=== PATIENT | female | born 1935 | race Caucasian/White ===

== ENCOUNTER 2018-11-04 14:24 | Emergency (ER) | payer MEDICARE, BC, SELFPAY ==
[2018-10-09 13:41] VITALS: BMI 26.3
[2018-11-04 14:25] VITALS: BP 178/78; PULSE 70; RESP 16; TEMP 36.4; O2SAT 99; BMI 26.4
--- NOTE | 2018-11-04 15:06 | CT_ITS ---
We are attempting to reach an attending provider to discuss findings. An addendum with communication details will be sent when the communication is complete. STUDY: CT FACIAL BONES WITHOUT CONTRAST REASON FOR EXAM: Female, 83 years old. Status post fall RADIATION DOSAGE (If Supplied By Facility): CTDIvol = ( 29.38 ) mGy, DLP = ( 510.73 ) mGycm TECHNIQUE: The patient was scanned in a multi detector CT scanner. Sagittal and coronal images were reconstructed. Individualized dose optimization techniques were used for this CT. COMPARISON: None. FINDINGS: There is right periorbital soft tissue swelling. There is a acute minimally comminuted depressed fracture of the right orbital floor with taking fragments. There is fluid within the right maxillary sinus. There is a nondisplaced fracture of the wall the right maxillary sinus. There is fluid in the right ethmoid sinuses. Normal orbital pope and orbital contents. There is a subtle defect within the right-sided nasal bone suggesting possible prior injury. There is dense calcification of the medially located bilateral carotid bulbs which is likely customer service representative teller of significant atherosclerotic disease. There is degenerative change within the cervical spine with multilevel facet arthropathy. At the level of the partially visualized C4-C5 level there is a substantial osteophyte extending into the canal causing moderate stenosis of the right neural foramen and effacement of the anterior thecal sac. CT/Sinus/Facial Bone IMPRESSION: Acute Depressed right orbital floor fracture. Nondisplaced right maxillary sinus lateral wall fracture. Dense calcification of the bilateral carotid bulbs which is likely associated with significant hemodynamic stenosis. Recommend follow-up ultrasound when appropriate Advanced degenerative change in the visualized cervical spine. Electronically Signed: Malissa Schultz MD at 16:45 EDT Tel , Service support ,
--- NOTE | 2018-11-04 15:08 | CT_ITS ---
STUDY: CT CERVICAL SPINE WITHOUT CONTRAST REASON FOR EXAM: Female, 83 years old. Status post fall RADIATION DOSAGE (If Supplied By Facility): CTDIvol = ( 23.51 ) mGy, DLP = ( 538.71 ) mGycm TECHNIQUE: High resolution transaxial imaging was performed without contrast material. Sagittal and coronal images were reconstructed. Individualized dose optimization techniques were used for this CT. COMPARISON: None FINDINGS: Normal craniovertebral junction. There are degenerative changes of the anterior atlantoaxial articulation. Normal odontoid process. Normal cervical lordosis. Is multilevel degenerative change. C2-3: There is facet arthropathy left greater than right with moderate left neural foraminal narrowing. There is an osteophyte extending into the canal without significant central stenosis. C3-4: There is disc space narrowing spondylosis [id number] neural foraminal narrowing without central stenosis C4-5: There is disc space narrowing right lateral disc osteophyte with moderate right neural foramina narrowing mild central stenosis and effacement of the right lateral recess. C5-6: There is disc space narrowing large disc osteophyte extending into the canal and left neural foramen is moderate to severe left neural foraminal narrowing [id number] central stenosis. Moderate to severe right neural foraminal narrowing. C6-7: There is a central disc osteophyte protrusion with mild to moderate neural foraminal narrowing effacement of the anterior thecal sac. There is moderate neural foramina narrowing C7-T1: Normal endplates. Normal disc height and morphology. Normal central canal and intervertebral neuroforamina. T1-2 there is a central disc osteophyte protrusion. There is atherosclerotic disease of the aorta. The arch measures at least 4 cm. This is partially visualized. 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 No Visualized evidence of an acute fracture. 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 Electronically Signed: Malissa Schultz MD at 16:49 EDT Tel , Service support ,
--- NOTE | 2018-11-04 15:08 | CT_ITS ---
STUDY: CT BRAIN WITHOUT CONTRAST REASON FOR EXAM: Female, 83 years old. Status post fall RADIATION DOSAGE (If Supplied By Facility): CTDIvol = ( 44.99 ) mGy, DLP = ( 779.24 ) mGycm TECHNIQUE: Transaxial CT imaging of the brain was performed without administration of intravenous contrast material. Individualized dose optimization techniques were used for this CT. COMPARISON: No relevant priors. FINDINGS: There is right periorbital soft tissue edema. There is visualized depressed fracture of the right orbital floor with fluid in the right maxillary sinus. There is a nondisplaced fracture at the lateral wall of the right maxillary sinus. There is a suggestion of a age-indeterminate nondisplaced fracture of the right nasal bone. There is calcification of the vertebral arteries. There is mild cerebral atrophy with widening of the extra-axial spaces and ventricular dilatation. There are areas of decreased attenuation within the white matter tracts of the supratentorial brain, consistent with microvascular disease changes. Normal basal ganglia and thalami. Normal brainstem. Normal cerebellum. There is no intracranial hemorrhage. There are no findings of an acute ischemic infarction. There is acute fluid in the right maxillary sinus and in the right-sided ethmoid sinuses. There is calcification of the cavernous carotid arteries. CT/Brain/Head without Contrast IMPRESSION: Acute right orbital floor fracture. Acute fluid in the right maxillary sinus. Nondisplaced fracture of the lateral wall the right maxillary sinus. Probable old fracture of the right-sided nasal bone. No evidence of acute hemorrhage infarct or edema. Electronically Signed: Malissa Schultz MD at 16:40 EDT Tel , Service support ,
--- NOTE | 2018-11-04 15:09 | ED.VIS.GEN ---
History of Present Illness Chief Complaint: Head Injury Informant: Patient Onset: Today Context: Sudden Onset Current Severity: Mild Narrative: Patient is an 83-year-old female with history of coronary artery disease as well as chronic pain presenting after mechanical fall. Patient [place] tripped on a step. Patient fell forward. She struck her right arm and hit her face. She did not have any loss of consciousness. Patient is on Plavix. She denies any associated neck pain. She denies any vision changes. She has pain on the right side of her face. She denies any bony tenderness. Patient notes she has chronic lower extremity pain which is unchanged. She denies any associated numbness or tingling. She is not sure her last tetanus was. She denies any other complaints at this time. Past Medical History - Allergies and Home Meds Allergies/Adverse Reactions: Allergies sitagliptin [From Januvia] Allergy (Severe, Verified 10/09/18 13:41) Swelling face and legs Penicillins Allergy (Unknown, Verified 10/09/18 13:41) Unknown Primary Care Physician: Shaquille Thacker MD [Primary Care Provider] - Smoking Status: Never smoker Physical Exam Vital Signs/Narrative: Vital Signs Temp Pulse Resp BP Pulse Ox 11/04/18 14:25 97.5 F L 70 16 178/78 H 99 Inital Vital Signs reviewed: Yes General: Well nourished, Well developed, No Acute Distress Head: Normocephalic, Trauma - Ecchymosis over right zygomatic area, associated tenderness Eyes: Perrl, EOMI, - - No signs of entrapment, no periorbital crepitus appreciated, no subconjunctival hemorrhage ENT: Moist mucous membranes, No rhinorrhea, TM's clear, - - No septal hematoma, no signs of basilar skull fracture, no malocclusion Neck: Supple, Nontender, - - No Mid line tenderness, no step-off sign Cardiovascular: Regular rate, Regular rhythm, No murmurs Respiratory: No distress, CTA bilaterally, Chest nontender Abdomen: Soft, Nontender, Nondistended, Normal bowel sounds Back: Nontender, Normal Inspection Extremities: Nontender, No edema. Negative for: Tenderness Skin: - - Bruising over her right cheek and lateral orbital area, 2 cm irregular superficial skin tear distal right forearm, dorsal aspect Neurological: Alert, Oriented x3, Cranial nerves II-XII grossly intact, Normal Strength, Normal Sensation Psychological: Normal affect, Normal Mood Diagnostic/Tx/Re-eval Diagnostic Data Facial/Sinus 11/04/18 15:06 IMPRESSION: Acute Depressed right orbital floor fracture. Nondisplaced right maxillary sinus lateral wall fracture. Dense calcification of the bilateral carotid bulbs which is likely associated with significant hemodynamic stenosis. Recommend follow-up ultrasound when appropriate Advanced degenerative change in the visualized cervical spine. Electronically Signed: Malissa Schultz MD at 16:45 EDT Tel , Service support , ADDENDUM: 11/04/18 1657 IMPRESSION: Acute Depressed right orbital floor fracture. Nondisplaced right maxillary sinus lateral wall fracture. Dense calcification of the bilateral carotid bulbs which is likely associated with significant hemodynamic stenosis. Recommend follow-up ultrasound when appropriate Advanced degenerative change in the visualized cervical spine. N.B. : The above information has been verbally conveyed by Malissa Schultz MD to Sivan Akhtar AA on 11/04/2018 16:50:21 (ET). Electronically Signed: Malissa Scuhltz MD at 16:45 EDT Tel , Service support , Brain CT 11/04/18 15:08 IMPRESSION: Acute right orbital floor fracture. Acute fluid in the right maxillary sinus. Nondisplaced fracture of the lateral wall the right maxillary sinus. Probable old fracture of the right-sided nasal bone. No evidence of acute hemorrhage infarct or edema. Electronically Signed: Malissa Schultz MD at 16:40 EDT Tel , Service support , Cervical Spine CT 11/04/18 15:08 IMPRESSION: Advanced degenerative changes of the thoracolumbar spine as detailed above. No Visualized evidence of an acute fracture. 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 Electronically Signed: Malissa Schultz MD at 16:49 EDT Tel , Service support , - Medical Decision Making Evaluated after mechanical fall. She struck the right side of her face. Patient does not have any obvious signs of entrapment however a CT of the head and face does show a minimally comminuted depressed fracture of the right orbital floor. Patient has no acute intracranial process. She does have a small skin tear on her right arm which is cleansed and bandaged in the ER. Her tetanus is updated. Patient is given a home dose of her [place] in the emergency room. Discussed the case with OMFS, , wants follow-up with ophthalmology, Dr. Nettles. He does not recommend antibiotics at this time. Patient is counseled on this plan and verbalizes agreement with this. She is counseled on signs and symptoms requiring return to the emergency room. She is instructed to try to avoid sneezing and blowing her nose. As patient is in pain management I cannot give her a prescription for [place] but she is encouraged to contact her pain doctor in case she needs a bigger dose for her acute pain. Patient is counseled on signs and symptoms requiring return to the emergency room. Patient verbalizes agreement and understand this plan. Patient discharged home in stable and improved condition. ED Disposition - Plan for ED Patient: Disposition: Home or Assisted Living Diagnosis: Fracture of orbital floor, closed, Closed head injury, Fall Instructions: HEAD INJURY, No Wake-Up (Adult), FACIAL CONTUSION, No Wakeup, Facial Fracture Referrals: Shaquille Thacker MD [Primary Care Provider] - Heath Nettles MD [STAFF PHYSICIAN] - 2 Days Additional Instructions: Return to the emergency room immediately if you develop any change in vision or double vision. Try to avoid blowing your nose and sneezing. It is important that you follow-up with business developer, Dr. Nettles.
[2018-11-04] MEDS: Diphth,Pertuss(Acell),Tet Vac 0.5 ML Vial IM (16:21)
[2018-11-04] MEDS: HYDROcodone Bitartrate/Apap 5/325 Tablet PO (17:23)
== END 2018-11-04 18:10 | disposition home or self-care (01) ==
PROVIDERS: Emergency Provider Emergency Medicine; Family Provider Family Medicine; PCP Family Medicine
DX: S02.31XA Fracture of orbital floor, right side, initial encounter for closed fracture (principal); W10.9XXA Fall (on) (from) unspecified stairs and steps, initial encounter; Y93.01 Activity, walking, marching and hiking; Y92.89 Other specified places as the place of occurrence of the external cause; Z23 Encounter for immunization; S51.811A Laceration without foreign body of right forearm, initial encounter
CPT/HCPCS: 70450; 70486; 72125; 90715; 99282

== ENCOUNTER → 2018-11-05 06:43 | Outpatient (CLI) | payer MEDICARE, BC, SELFPAY ==
[2018-10-09 13:41] VITALS: BMI 26.3
[2018-11-04 14:25] VITALS: BMI 26.4
--- NOTE | 2018-11-05 06:46 | ECHOCS_ITS ---
Reason For Study: CAD/ASHD Procedure This was a 2D Doppler, Color Flow transthoracic echocardiogram. The study was technically difficult. Contrast injection was performed. Exam performed in department. Left Ventricle Normal LV size. Left ventricular systolic function is normal. The estimated ejection fraction is 65 %. No regional wall motion abnormalities noted. Right Ventricle Normal RV size. Normal systolic function. Atria The left atrium is moderately enlarged. Normal right atrium. No doppler evidence for ASD. Bubble contrast study negative for right to left interatrial shunt. Mitral Valve There is no mitral annular calcification. Normal mitral valve. Mild (1+) mitral valve insufficiency. Tricuspid Valve Normal tricuspid valve. Trivial tricuspid valve insufficiency. Unable to estimate RV systolic pressure/pulmonary artery pressure due to technically difficult study. Aortic Valve Trisinus/trileaflet aortic valve. Mild diffuse aortic valve thickening. Moderate focal aortic valve calcification. Aortic sclerosis, no stenosis. Pulmonic Valve The pulmonic valve is not well visualized. Trivial pulmonic valve insufficiency. Great Vessels Mildly dilated aortic root. Pericardium/Pleural No pericardial effusion. Medication 22 gauge I.V. with prn adaptor inserted into left arm. Diluted definity 2ml given slow IV push to enhance endocardial definition. Performed a rapid injection of agitated mix of 9 cc saline and 1cc air to assess for atrial septal defect. MMode/2D Measurements & Calculations LVIDd: 4.1 cm IVSd: 1.7 cm LVOT diam: 2.0 cm LVIDs: 2.7 cm LVPWd: 0.97 cm FS: 33.5 % LVOT area: 3.1 cm2 Ao root diam: 4.3 cm LAV(MOD-bp): 82.3 ml LA A4 area: 25.7 cm2 LAV(MOD-bp) Indexed: 43.8 ml/m2 LAV(MOD-sp2): 78.3 ml LAV(MOD-sp4): 84.3 ml Time Measurements MV dec time: 0.20 sec Doppler Measurements & Calculations MV E max jeffrey: 87.9 cm/sec Lat Peak E' Jeffrey: 9.4 cm/sec Med Peak E' Jeffery: 8.2 cm/sec MV A max jeffrey: 75.5 cm/sec E/E' lat: 9.4 E/E' med: 10.7 MV E/A: 1.2 MV V2 max: 97.3 cm/sec MV P1/2t max jeffrey: 96.3 cm/sec Ao V2 max: 85.7 cm/sec MV max P.8 mmHg MV P1/2t: 90.5 msec Ao max P.9 mmHg MV V2 mean: 51.9 cm/sec MV dec slope: 311.6 cm/sec2 Ao V2 mean: 66.1 cm/sec MV mean P.3 mmHg Ao mean P.9 mmHg MV V2 VTI: 29.7 cm MVA(P1/2t): 2.4 cm2 Ao V2 VTI: 21.6 cm MVA(VTI): 1.8 cm2 SHON(I,D): 2.5 cm2 SHON(V,D): 2.6 cm2 LV V1 max: 71.0 cm/sec SV(LVOT): 54.5 ml PA V2 max: 79.0 cm/sec LV V1 max P.0 mmHg LV V1 mean P.00 mmHg LV V1 mean: 46.6 cm/sec LV V1 VTI: 17.6 cm Interpretation Summary The study was technically difficult. Contrast injection was performed. Left ventricular systolic function is normal. The estimated ejection fraction is 65 %. The left atrium is moderately enlarged. Mild (1+) mitral valve insufficiency. Trivial tricuspid valve insufficiency. Aortic sclerosis, no stenosis. Trivial pulmonic valve insufficiency. Mildly dilated aortic root. Unable to estimate RV systolic pressure/pulmonary artery pressure due to technically difficult study. Transmitral diastolic flow velocities suggest diastolic dysfunction (pseudonormal pattern). Ordering Physician: Mauricio Ruff Referring Physician: GM BENJAMIN Performed By: Travon Figueredo RCS
--- NOTE | 2018-11-05 17:41 | STRESSREP_ITS ---
Stress Test Report Pharmacologic myocardial perfusion stress test. 83-year-old lady with a history of coronary artery disease. Medications: Losartan, magnesium, metformin, prednisone, atorvastatin. Stress EKG. Resting EKG demonstrates normal sinus rhythm with a rate of 64 bpm normal intervals are noted resting blood pressures 142/70 mmHg. 0.4 mg of reg adenoson was infused per usual protocol followed by rapid intravenous saline flush injection continuous EKG monitoring was performed. The maximum heart rate attained was 82 bpm which was 59% of maximum predicted heart rate the maximum workload was 1 metabolic equivalent. At rest there were no ST or T wave changes noted suggest abnormal flow reserve at peak infusion nonspecific ST-T wave changes were noted with no meet the criteria for ischemia. Myocardial perfusion stress test. 11.3 mCi of technetium 99m sestamibi was injected at rest. 0.4 mg of regadenoson was infused per usual protocol peak infusion 33.4 mCi of technetium 99m sestamibi was injected stress images were obtained stress and rest images were reconstructed and compared in the short axis vertical long horizontal long axis. Gated images were also obtained for next Perfusion SPECT analysis: Review of the stress images demonstrate normal perfusion noted in all areas of the myocardium. The resting images similar demonstrate normal uptake noted in all rest myocardium. No areas of reversibility are noted suggest ischemia no previous infarct is noted. Gated SPECT analysis: The gated ejection fraction is noted to be 81%. Conclusion: Normal pharmacologic myocardial perfusion stress test. Preserved ejection fraction.
== END ==
PROVIDERS: Family Provider Family Medicine; PCP Family Medicine; Referring Provider Internal Medicine Cardiovascular Disease; Visit Provider Internal Medicine Cardiovascular Disease
DX: I25.10 Atherosclerotic heart disease of native coronary artery without angina pectoris (principal); Z87.74 Personal history of (corrected) congenital malformations of heart and circulatory system; Z98.890 Other specified postprocedural states; I11.0 Hypertensive heart disease with heart failure; I50.9 Heart failure, unspecified; I49.5 Sick sinus syndrome; E78.00 Pure hypercholesterolemia, unspecified; I10 Essential (primary) hypertension; Z95.1 Presence of aortocoronary bypass graft
CPT/HCPCS: 78452; 93017; 93306; A9500; Q9957; A4216; C8929; J2785

== ENCOUNTER → 2018-12-17 11:23 | Outpatient (CLI) | payer MEDICARE, BC, SELFPAY ==
[2018-12-17 17:14] LABS: Calcium, Urine (Random) < 5.0 mg/dL (Not Estab.)
== END ==
PROVIDERS: Family Provider Family Medicine; PCP Family Medicine; Visit Provider Internal Medicine Nephrology
DX: E83.42 Hypomagnesemia (principal)
CPT/HCPCS: 82340; 82570

== ENCOUNTER → 2019-01-05 07:44 | Outpatient (CLI) | payer MEDICARE, BC, SELFPAY ==
[2019-01-05 07:51] VITALS: BP 151/65; PULSE 95; RESP 18; TEMP 36.1; O2SAT 99; BMI 26.2
[2019-01-05] MEDS: Cosyntropin 0.25 MG Vial IV (08:08)
== END ==
PROVIDERS: Family Provider Family Medicine; PCP Family Medicine; Referring Provider Internal Medicine Nephrology; Visit Provider Internal Medicine Nephrology
DX: E87.1 Hypo-osmolality and hyponatremia (principal)
CPT/HCPCS: 96374; 82533; J0834

== ENCOUNTER → 2019-04-13 14:20 | Outpatient (CLI) | payer MEDICARE, BC, SELFPAY ==
[2019-04-13 13:30] VITALS: BMI 26.5
[2019-04-13 15:12] LABS: Absolute Lymphocyte Count 1.49 X10^3/uL (0.83-4.51); Absolute Neutrophil Count 4.5 X10^3/uL (2.0-7.7); Basophil# 0.03 X10^3/uL; Basophil% 0.5 % (0-1); Eosinophil# 0.09 X10^3/uL; Eosinophils% 1.4 % (0-5); Hematocrit 38.9 % (37-47); Hemoglobin 12.4 g/dL (12.0-15.0); Lymphocyte # 1.49 X10^3/ul (4.0); Lymphocyte % 22.4 % (19-41); Mean Corp Hgb Conc 31.9 g/dL (32-36); Mean Corpuscular Hgb 28.1 pg (27.0-32.0); Mean Platelet Vol. 9.4 fl (6.2-12.0); Monocyte# 0.54 X10^3/uL; Monocyte% 8.1 % (0-10); NRBC Flagged by Analyzer 0 % (0-5); Neutrophil # 4.48 X10^3/uL (2.7-7.7); Neutrophil % 67.3 % (47-70); Platelet Count 237 K/mm3 (150-450); RBC Distribution Width SD 45.3 fl (35.1-43.9); Red Blood Count 4.42 M/mm3 (4.2-5.4); White Blood Count 6.7 K/mm3 (4.4-11.0)
== END ==
PROVIDERS: PCP Family Medicine; Referring Provider Internal Medicine Cardiovascular Disease; Visit Provider Internal Medicine Cardiovascular Disease
DX: I25.10 Atherosclerotic heart disease of native coronary artery without angina pectoris (principal)
CPT/HCPCS: 36415; 85025

== ENCOUNTER 2020-03-17 14:55 | Outpatient (RCR) | payer MEDICARE, BC, SELFPAY ==
[2019-11-20 10:09] VITALS: BMI 25.7
== END 2020-03-17 23:59 ==
LOC: IMMUN 14:55
PROVIDERS: PCP Family Medicine; Visit Provider Family Medicine
DX: Z23 Encounter for immunization (principal)
CPT/HCPCS: 0011A; 0012A; 91301

== ENCOUNTER → 2020-11-22 12:54 | Outpatient (CLI) | payer MEDICARE, BC, SELFPAY ==
--- NOTE | 2020-11-22 13:58 | SP.MBSS_ITS ---
Modified Barium Swallow - Patient Information Study Date: 11/22/20 Study Time: 13:00 Direct Billable Minutes: 142 Total Minutes procedure & reportin Diagnosis: Dysphagia Referring Physician: Shaquille Thacker Reason for Referral: Objective assessment of swallow function under fluoroscopy recommended d/t reports expectoration of thick bubbly whitish/clear phlegm and gagging w/ intake. Pt/family report surgical repair of an esophageal diverticulum ~1 year ago. Denies coughing/choking w/ PO intake. Denies any pneumonias w/in the last 5 years. Medical History: Atherosclerotic heart disease of [place] coronary artery without angina pectoris Congestive heart failure Esophageal stenosis Essential hypertension History of patent ductus arteriosus Pure hypercholesterolemia Sleep apnea SSS (sick sinus syndrome) Tachy-christy syndrome Type 2 diabetes mellitus Surgical History: History of appendectomy History of coronary artery bypass surgery (~09/2015) History of throat surgery Status post aorta repair (~2008) Medical and Surgical History obtained via review of [facility] medical records. Patient reports the following additional history: Esophageal diverticulum repair ~1 year ago Surgical evacuation of large pharyngeal abscess ~11-12 years ago Dentition: Natural Teeth, Upper Dentures Mental Status: WNL Respiratory Status: Oxygenating on Room Air - Penetration-Aspiration Scale Penetration-Aspiration Scale: OBJECTIVE ASSESSMENT OF SWALLOW FUNCTION (QUANTITATIVE ? PER TRIAL): PENETRATION / ASPIRATION SCALE ([place]): 1 = does not enter airway 2 = enters airway/above vocal folds/ejected 3 = enters airway/above vocal folds/not ejected 4 = enters airway/contacts vocal folds/ejected 5 = enters airway/contacts vocal folds/not ejected 6 = enters airway/below vocal folds/ejected 7 = enters airway/below vocal folds/not ejected despite effort 8 = enters airway/below vocal folds/no effort VIDEOFLOROSCOPIC SCALE SCORE ([place]): Grade I = aspiration of material that has penetrated into the laryngeal vestibule, intact cough reflex Grade II = aspiration < 10 % of the bolus, intact cough reflex Grade III = aspiration of < 10 % of the bolus, reduced cough reflex or aspiration of > 10 % of the bolus, intact cough reflex Grade IV = aspiration of > 10 % of the bolus, reduced cough reflex - Penetration-Aspiration Scale Score Thin Liquid via teaspoon Result: 2= enter airway/above vocal folds/ejected Comment: *effortful swallow not effective to ameliorate laryngeal vestibule penetration Thin Liquid via teaspoon Trial 2 Result: 2= enter airway/above vocal folds/ejected Thin Liquid via small single sip from cup Result: 3= enters airways/above vocal folds/not ejected Thin Liquid via small single sip from cup Effortful swallow Result: 3= enters airways/above vocal folds/not ejected Thin Liquid via sequential sips from cup Result: 3= enters airways/above vocal folds/not ejected Thin Liquid via single sip from straw Result: 5= enters airways/contacts vocal folds/not ejected Comment: *cued cough was effective to clear contrast from the vocal folds, but not eject from the laryngeal vestibule entirely [place] Thick Liquid via small single sip from cup Result: 3= enters airways/above vocal folds/not ejected Honey Thick Liquid via small single sip from cup Result: 2= enter airway/above vocal folds/ejected Pudding Result: 1= does not enter airway Thin Liquid via small single sip from cup Chin tuck Result: 1= does not enter airway Comment: *chin tuck effective to eliminate prandial penetration; patient raised head from chin tuck position before swallowing a second time to clear post prandial oropharyngeal residue, resulting in penetration during second swallow Thin Liquid via small single sip from cup Trial 2 Result: 3= enters airways/above vocal folds/not ejected Comment: *chin tuck posture effective to eliminate prandial penetration and was effective to prevent penetration when swallowing post prandial oropharyngeal residue when chin tuck posture was maintained through both swallows Thin Liquid via small single sip from cup Chin tuck Trial 2 Result: 1= does not enter airway Comment: *chin tuck posture effective to eliminate prandial penetration and was effective to prevent penetration when swallowing post prandial oropharyngeal residue when chin tuck posture was maintained through both swallows - Oral Phase Labial Seal: No Labial Escape Tongue Control During Bolus Hold: Cohesive bolus between tongue to palatal seal Bolus Preparation/Mastication: Timely and efficient chewing and mashing Bolus Transport/Lingual Motion: Brisk tongue motion Oral Residue: Trace residue lining oral structures - Pharyngeal Phase Initiation of Pharyngeal Swallow: Bolus head at posterior laryngeal surgace of epiglottis Soft Palate Elevation: No bolus between soft palate and pharyngeal wall Laryngeal Elevation: Partial superior movement thyroid cart/partial apprx aryt- epig petiole Anterior Hyoid Excursion: Partial anterior movement Epiglottic Movement: Partial inversion Laryngeal Vestibule Closure at Height of Swallow: Incomplete; narrow column of air/contrast in laryngeal vestibule Pharyngeal Stripping Wave: Present - complete Pharyngoesophageal Segment Opening: Parital distension and partial duration; parital obstruction of flow - no obstruction Tongue Base Retraction: Narrow column of contrast between tongue base & post. pharyngeal wall Pharyngeal Residue: Collection of residue within or on pharyngeal structures - Esophageal Phase Esophageal Clearance: Esophageal retention - Diagnosis/Impression Diagnosis: oropharyngeal dysphagia (R13.12) Impression: Swallow function is marked by: * functional oral phase * delayed pharyngeal swallow onset timing resulting in suboptimal bolus location upon swallow onset contributing to pre-prandial laryngeal vestibule penetration * reduced laryngeal elevation and anterior hyoid excursion resulted in incomplete epiglottic inversion and reduced laryngeal vestibule closure/pressure which was insufficient to eject penetration from the laryngeal vestibule * tip of epiglottis noted to rest against the thickened posterior pharyngeal wal l, preventing complete incomplete epiglottic inversion and reduced airway protection * reduced pharyngoesophageal segment opening, although this did not impact bolus clearance through the PES * pharyngeal residue retention of thin liquid lining the base of tongue, valleculae and aryepiglottic folds resulting in post-prandial penetration * no aspiration identified during this study, although increased risk for aspiration present d/t contrast entering the laryngeal vestibule w/out ejection; possible that chronic penetration of thin liquids could result in aspiration * use of a chin tuck posture in conjunction w/ a double swallow was effective to eliminate laryngeal vestibule penetration of thin liquids * screening for esophageal clearance revealed a wide esophagus w/ retention of contrast Anatomical abnormalities noted: * thickening of the posterior pharyngeal wall w/ abnormal margins * visible cervical osteophytes * calcification of the anterior tracheal wall - Recommendations Diet: Regular Textures, Thin Liquids Compensatory Strategies: Small Sips, Chin Tuck - double swallow w/ chin tucked - swallow bolus w/ chin tucked, swallow a second time to clear residue while maintaining chin tuck posture , Sitting upright, Remain sitting upright for 30 minutes after PO intake - GERD precautions Recommend Repeat Modified Barium Swallow: TBD Need for Skilled Speech Therapy Services: Yes Comment: Skilled ST intervention for oropharyngeal dysphagia management is recommended targeting: * compensatory strategy/posture use * oropharyngeal strengthening to improve bolus location upon swallow onset/swallow onset timing, hyolaryngeal excursion/laryngeal vestibule closure Recommended Referrals: GI Consult - wide esophagus w/ retention of contrast, ENT Consult - abnormal posterior pharyngeal wall appearance Education Completed: 1. Described result of evaluation., 5. Patient demonstrates recommended strategies., 6. Family/caregivers demonstrate recommended strategies. Comment: Images were reviewed w/ the patient and her son immediately following MBS conclusion. Extended time spend providing education re: anatomy/physiology of swallow function, deficits identified, and recommendation for postures, compensatory strategy use and need for outpatient speech therapy to treat oropharyngeal dysphagia. Results, recommendations, and plan of care going forward were discussed with the patient and her son, with both verbalizing understanding and agreement with all recommendations/education provided. - Status Active ST Patient: Active - Contact Information [facility] Speech Therapy:: Arianne Feliciano M.A., CCC-WORK ORDER DETAILER [place] [id number] [place] [address] x [phone] [email or web address] 11/22/20 15:22
== END ==
PROVIDERS: PCP Family Medicine; Referring Provider Family Medicine; Visit Provider Family Medicine
DX: R13.10 Dysphagia, unspecified (principal)
CPT/HCPCS: 74230; 92611

== ENCOUNTER 2021-04-03 12:47 | Outpatient (CLI) | payer MEDICARE, BC, SELFPAY ==
--- NOTE | 2021-04-03 12:50 | ECHOCS_ITS ---
Reason For Study: Ao Root Dilation Procedure This was a 2D Doppler, Color Flow transthoracic echocardiogram. The study was technically difficult. Contrast injection was performed. Exam performed in department. Left Ventricle Normal LV size. Left ventricular systolic function is normal. The estimated ejection fraction is 65 %. No evidence for diastolic dysfunction. No regional wall motion abnormalities noted. Right Ventricle Normal RV size. Normal systolic function. Atria The left atrium is mildly enlarged. Normal right atrium. No doppler evidence for ASD. Mitral Valve There is no mitral annular calcification. Normal mitral valve. Trivial mitral valve insufficiency. Tricuspid Valve Normal tricuspid valve. Trivial tricuspid valve insufficiency. Unable to estimate RV systolic pressure/pulmonary artery pressure due to technically difficult study. Aortic Valve Trisinus/trileaflet aortic valve. Moderate diffuse aortic valve thickening. Mild focal aortic valve calcification. Mild (1+) aortic valve insufficiency. Pulmonic Valve The pulmonic valve is not well visualized. Great Vessels Mildly dilated aortic root. Pericardium/Pleural No pericardial effusion. Medication 22 gauge I.V. with prn adaptor inserted into right arm. Diluted definity 2ml given slow IV push to enhance endocardial definition. MMode/2D Measurements & Calculations LVIDd: 3.5 cm IVSd: 1.3 cm LVOT diam: 2.1 cm LVIDs: 2.1 cm LVPWd: 0.92 cm FS: 40.2 % LVOT area: 3.6 cm2 Ao root diam: 3.6 cm LAV(MOD-bp): 56.8 ml LA A4 area: 19.3 cm2 LA dimension: 4.0 cm LAV(MOD-bp) Indexed: 30.4 ml/m2 LAV(MOD-sp2): 58.2 ml LAV(MOD-sp4): 55.2 ml Time Measurements MV dec time: 0.31 sec Doppler Measurements & Calculations MV E max jeffrey: 63.6 cm/sec Lat Peak E' Jeffrey: 7.6 cm/sec Med Peak E' Jeffrey: 6.2 cm/sec MV A max jeffrey: 75.1 cm/sec E/E' lat: 8.4 E/E' med: 10.3 MV E/A: 0.85 MV V2 max: 78.2 cm/sec MV P1/2t max jeffrey: 61.5 cm/sec Ao V2 max: 104.3 cm/sec MV max P.4 mmHg MV P1/2t: 103.5 msec Ao max P.4 mmHg MV V2 mean: 41.8 cm/sec MV dec slope: 173.9 cm/sec2 Ao V2 mean: 70.6 cm/sec MV mean P.82 mmHg Ao mean P.3 mmHg MV V2 VTI: 23.0 cm MVA(P1/2t): 2.1 cm2 Ao V2 VTI: 23.3 cm MVA(VTI): 3.3 cm2 SHON(I,D): 3.2 cm2 SHON(V,D): 2.9 cm2 LV V1 max: 85.0 cm/sec SV(LVOT): 75.3 ml PA V2 max: 69.5 cm/sec LV V1 max P.9 mmHg LV V1 mean P.5 mmHg LV V1 mean: 57.7 cm/sec LV V1 VTI: 21.0 cm ECHO/Echo Complete W/ Contrast Interpretation Summary The study was technically difficult. Contrast injection was performed. Left ventricular systolic function is normal. The estimated ejection fraction is 65 %. The left atrium is mildly enlarged. Trivial mitral valve insufficiency. Trivial tricuspid valve insufficiency. Moderate diffuse aortic valve thickening. Mild focal aortic valve calcification. Mild (1+) aortic valve insufficiency. Mildly dilated aortic root. Unable to estimate RV systolic pressure/pulmonary artery pressure due to techni marques difficult study. No evidence for diastolic dysfunction. Ordering Physician: Mauricio Ruff Referring Physician: Shaquille Thacker Performed By: Travon Figueredo RCS
== END 2021-04-03 23:59 | disposition home or self-care (01) ==
LOC: CVS 12:50
PROVIDERS: PCP Family Medicine; Referring Provider Internal Medicine Cardiovascular Disease; Visit Provider Internal Medicine Cardiovascular Disease
DX: I25.10 Atherosclerotic heart disease of native coronary artery without angina pectoris (principal)
CPT/HCPCS: 93306; Q9957; A4216; C8929

== ENCOUNTER → 2021-09-22 | Outpatient (CLI) | payer MEDICARE, BC, SELFPAY ==
--- NOTE | 2021-09-22 09:53 | RAD_ITS ---
STUDY: X-RAY - ESOPHAGUS (BARIUM SWALLOW) WITH FLUOROSCOPY REASON FOR EXAM: Female, 86 years old. DYSPHAGIA TECHNIQUE: 17 view(s) of the esophagus were obtained following swallowing of barium. FLUOROSCOPY TIME (if supplied): (30 seconds) minutes/seconds COMPARISON: None. FINDINGS: There is no demonstrated esophageal foreign body. There is circumferential narrowing of distal esophagus at the level of the gastroesophageal junction. Small hiatal hernia. The patient ingested a 12 mm tablet of barium. The tablet is trapped at the gastroesophageal junction. Normal visualized aortic arch and descending thoracic aorta. Normal visualized pulmonary parenchyma. There are diffuse degenerative changes of the visualized thoracic spine. RAD/Esophagus Single Contrast IMPRESSION: Circumferential narrowing at the gastroesophageal junction where there is evidence of a small sliding hiatal hernia. The ingested 12 mm tablet of barium is trapped at that site. Electronically Signed: Ananda Sevilla MD at 12:26 EDT ,
== END | disposition home or self-care (01) ==
LOC: RAD 09:48
PROVIDERS: PCP Family Medicine; Referring Provider Family Medicine; Visit Provider Family Medicine
DX: R13.10 Dysphagia, unspecified (principal)
CPT/HCPCS: 74220

== ENCOUNTER 2021-11-01 05:27 | Day surgery (SDC) | payer MEDICARE, BC, SELFPAY ==
--- NOTE | 2021-11-01 | ESO_PTH ---
PATIENT: NORRIS PASCUAL LOC: EN U#:[id number] AGE/SX: 86/F ROOM: RE11/01/[address]: Dr. Lg Kirkland DO : 1935 BED: DIS: 11/01/2021 SPEC #: [id number] RECD: 11/01/21 12:50 STATUS: CHLOÉ JACLYN #: [id number] BLAKE: 11/01/21 00:[address]: Lg Kirkland DEPT: SURGICAL PATHOLOGY RECD BY: Gordon Cole ENTERED: 11/01/21 12:50 SP TYPE: RENATO FERRIS DR: Dr. 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 SJ:kamran 11/02/2021 MICROSCOPIC DESCRIPTION Slides are reviewed. GROSS DESCRIPTION Received in fixative is one container labeled with the patient's name and designated distal esophagus stricture. The specimen consists of two irregular fragments of light campo soft tissue that in aggregate measure 0.8 x 0.5 x 0.1 cm. The specimen is totally submitted in one cassette. / ROMY:kamran 11/01/2021 TC:3 CPT: 37162
[2021-11-01] MEDS: Lactated Ringers 1,000 ML 15 ML IV (06:00)
[2021-11-01 06:03] VITALS: BP 157/86; PULSE 90; RESP 18; TEMP 36.1; O2SAT 99; BMI 26.4
--- NOTE | 2021-11-01 06:34 | HP.PCM_ITS ---
History and Physical Date of Admission: 11/01/21 Chief Complaint: dysphagia Details: NORRIS PASCUAL, is a 86 F who presents to the office today for dysphagia. Accompanied by KATHY Horta. Recently coughed up a hotdog that she had eaten a day or two prior. Abnormal esophagram last month--concentric narrowing at distal esophagus at GEJ; barium tablet trapped at GEJ. Hx of esophageal stenosis requiring dilation. Last EGD [address] Gonzalez at [facility]. Lots of foam then; acid has decreased with less caffeine after that. She takes pantoprazole 20 mg BID, she has taken this for years. Also Hx Zenker's diverticulum, large abscess once, surgery x 2. She c/o soreness on the left side of neck where she had the abscess, started a month ago. No nausea or vomiting. No abd pain. Tends to have diarrhea, started at least 4 yrs ago, had colonoscopy then. Imodium is effective. No melena or hematochezia. Exam Const General: cooperative, healthy appearing and comfortable Nutritional Appearance: average body habitus Orientation: alert, awake and oriented x3 HENMT Head: normal to inspection Eyes General: appearance normal, both eyes and all related structures Neck Neck: normal visual inspection and no lymphadenopathy Other: swelling and tender left side just below mandible Resp Effort & Inspection: normal respiratory effort Quality Reporting Tobacco Screening ([facility] 138) Smoking Status: Never smoker Assessment and Plan Assessment and Plan (1) Dysphagia: ?Status:?Acute ?Plan: 86 yr old female with esophageal stenosis at GEJ per esophagram, hx of dilation for esophageal stenoses--she is scheduled for EGD on 11/01/21. F/u approx 2 wks later. 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 (2) Esophageal stenosis: ?Status:?Acute ?Plan: as above (3) History of excision of Zenker's diverticulum: ?Status:?Acute ?Plan: as above (4) Neck mass: ?Status:?Acute ?Plan: as above ? ? ? Orders: Orders Soft Tissue Neck W/WO Contrast Today R22.0 - Localized swelling, mass and lump, head ? I have re-examined the patient. There are no clinical changes since date of exam.
[2021-11-01 06:35] LABS: Bedside Glucose 133 mg/dL (74-106)
[2021-11-01 07:00] VITALS: BP 157/86; BP 181/74; PULSE 67; RESP 16; TEMP 36.8; O2SAT 96
--- NOTE | 2021-11-01 07:02 | OP.EGD_ITS ---
Patient Name: Cyndi Mejia Procedure Date: 11/01/2021 6:22 AM Date of : 1935 Age: 86 Procedure: Upper GI endoscopy Indications: Dysphagia Providers: Lg Kirkland DO Medicines: Monitored Anesthesia Care Patient Profile: This is an 86 year old female. Refer to note in patient chart for documentation of history and physical. Patient has symptoms of dysphagia with both liquids and solids. Complications: No immediate complications. Procedure: Pre-Anesthesia Assessment: - Prior to the procedure, a History and Physical was performed, and patient medications and allergies were reviewed. The patient is competent. The risks and benefits of the procedure and the sedation options and risks were discussed with the patient. All questions were answered and informed consent was obtained. Patient identification and proposed procedure were verified by the physician in the pre-procedure area. Mental Status Examination: alert and oriented. Airway Examination: normal oropharyngeal airway and neck mobility. Respiratory Examination: clear to auscultation. CV Examination: normal. Prophylactic Antibiotics: The patient does not require prophylactic antibiotics. Prior Anticoagulants: The patient has taken no previous anticoagulant or antiplatelet agents. ASA Grade Assessment: II - A patient with mild systemic disease. After reviewing the risks and benefits, the patient was deemed in satisfactory condition to undergo the procedure. The anesthesia plan was to use monitored anesthesia care (MAC). Immediately prior to administration of medications, the patient was re-assessed for adequacy to receive sedatives. The heart rate, respiratory rate, oxygen saturations, blood pressure, adequacy of pulmonary ventilation, and response to care were monitored throughout the procedure. The physical status of the patient was re-assessed after the procedure. After obtaining informed consent, the endoscope was passed under direct vision. Throughout the procedure, the patient's blood pressure, pulse, and oxygen saturations were monitored continuously. The gastroscope was introduced through the mouth, and advanced to the second part of duodenum. The upper GI endoscopy was accomplished without difficulty. The patient tolerated the procedure well. Scope In: 6:42:41 AM Scope Out: 6:52:42 AM Total Procedure Duration Time 0 hours 10 minutes 1 second Findings: The oropharynx appeared to be abnormal. In the left peritonsillar region at the base of the tongue there appeared to be abnormal thickening of the soft tissue. The previous Zenker's diverticulum repair did not show any abnormalities except for some mild stricturing at the site of repair in the proximal esophagus. One benign-appearing, intrinsic stenosis was found 36 to 38 cm from the incisors. This stenosis was severe and measured 2 mm (inner diameter) x 3 cm (in length). The stenosis was traversed after dilation. A TTS dilator was passed through the scope. Dilation with a 15-16.5-18 mm balloon dilator was performed to 15 mm. The dilation site was examined following endoscope reinsertion and showed complete resolution of luminal narrowing. Estimated blood loss was minimal. A small hiatal hernia was present. The cardia and gastric fundus were normal on retroflexion. The second portion of the duodenum was normal. Impression: - The nasopharynx and oropharynx are abnormal. - Benign-appearing esophageal stenosis. Dilated. - Small hiatal hernia. - Normal second portion of the duodenum. Biopsied. Recommendation: - Await pathology results. - No repeat upper endoscopy. - Return to GI office. - Use Protonix (pantoprazole) 40 mg PO BID for 4 weeks. - Continue present medications. Procedure Code(s): --- Professional --- 19554, Esophagogastroduodenoscopy, flexible, transoral; with transendoscopic balloon dilation of esophagus (less than 30 mm diameter) 89370, 59,51, Esophagogastroduodenoscopy, flexible, transoral; with biopsy, single or multiple CPT copyright 2017 [employer]. All rights reserved. The codes documented in this report are preliminary and upon sat math tutor review may be revised to meet current compliance requirements. Lg Kirkland DO 11/01/2021 7:02:25 AM This report has been signed electronically. Number of Addenda: 0 Note Initiated On: 11/01/2021 6:22 AM
--- NOTE | 2021-11-01 07:03 | OP.CCLET_ITS ---
11/01/2021 Shaquille Thacker Re : Upper GI endoscopy procedure for Cyndi Mejia Dear Kedar This procedure was performed on Monday, November 01, 2021. My impressions and recommendations are as follows: Impressions : - The nasopharynx and oropharynx are abnormal. - Benign-appearing esophageal stenosis. Dilated. - Small hiatal hernia. - Normal second portion of the duodenum. Biopsied. Recommendations : - Await pathology results. - No repeat upper endoscopy. - Return to GI office. - Use Protonix (pantoprazole) 40 mg PO BID for 4 weeks. - Continue present medications. My findings are described in the full procedure note, which is enclosed. If I can be of further assistance, please feel free to contact me at . Sincerely, Lg Kirkland, 11/01/2021 7:02:25 AM This report has been signed electronically.
[2021-11-01 07:05] VITALS: BP 157/86; BP 167/72; PULSE 65; RESP 16; O2SAT 99
[2021-11-01 07:10] VITALS: BP 157/86; BP 189/72; PULSE 65; RESP 16; O2SAT 98
[2021-11-01 07:15] VITALS: BP 157/86; BP 182/77; PULSE 63; RESP 16; TEMP 36.2; O2SAT 97
[2021-11-01] MEDS: Pantoprazole Sodium 40 MG Tablet PO (07:23)
[2021-11-01 07:31] VITALS: BP 157/86
== END 2021-11-01 07:40 | disposition home or self-care (01) ==
LOC: EN 05:29 → AC 05:30
PROVIDERS: PCP Family Medicine; Referring Provider Family Medicine; Visit Provider Internal Medicine Gastroenterology
PROC: 0DJ08ZZ Inspection of Upper Intestinal Tract, Via Natural or Artificial Opening Endoscopic (ICD-10-PCS; CPT 43235; principal; 2021-11-01 06:25)
DX: K22.2 Esophageal obstruction (principal); K21.00 Gastro-esophageal reflux disease with esophagitis, without bleeding; K44.9 Diaphragmatic hernia without obstruction or gangrene; R22.1 Localized swelling, mass and lump, neck; Z79.84 Long term (current) use of oral hypoglycemic drugs; Z79.82 Long term (current) use of aspirin; Z79.899 Other long term (current) drug therapy
CPT/HCPCS: 43239; 43249; 82962; 88305; J7120; J2405

== ENCOUNTER → 2021-11-03 | Outpatient (CLI) | payer MEDICARE, BC, SELFPAY ==
--- NOTE | 2021-11-03 14:49 | CT_ITS ---
INDICATION: tender area left submandibular, history of throat dilatation, heart repair, diabetes EXAMINATION: CT NECK WITH CONTRAST - CT Soft Tissue Neck W/ Contrast Injection TECHNIQUE: Helically acquired images were obtained of the neck following IV contrast. Sagittal and coronal reformats reviewed. A radiation dose optimization technique was used for this scan. IV Contrast dosage and agent: 100 mL Isovue 300 COMPARISON: Cervical spine CT from 11/04/2018 FINDINGS: No discrete mass, abnormal fluid collection or significant soft tissue swelling demonstrated. Symmetric bilateral submandibular glands and symmetric bilateral parotid glands. No pharyngeal or parapharyngeal edema. Patent airway. Normal epiglottis. Unremarkable larynx. Stable sutures and small metallic clip at proximal esophagus. No retropharyngeal or prevertebral soft tissue swelling. Unremarkable nasopharynx. Imaged paranasal sinuses are clear. Mastoid air cells are well pneumatized. Bilateral orbits and globes with no acute findings. Prominent vascular calcifications with no focal major vessel occlusion. Previous sternotomy. Mild left apical lung scarring. No pathologically enlarged lymph nodes. Unremarkable thyroid gland. Chronic multilevel discogenic degenerative changes and facet arthropathy along cervical spine with secondary mild to moderate multilevel spinal canal stenosis with bilateral neural foraminal stenosis of varying severity. Stable grade 1 anterolisthesis of C3 over C4. No cervical spine fracture. CT/Soft Tissue Neck W/WO Contrast IMPRESSION: Contrast-enhanced CT of neck with no acute findings. No etiology for submandibular tenderness demonstrated. Follow-up as clinically warranted. Multilevel cervical spondylosis and other nonurgent findings within body of report. Electronically Signed: Elmer Cunningham MD at 5:53 EDT ,
== END | disposition home or self-care (01) ==
LOC: CT 14:48
PROVIDERS: PCP Family Medicine; Referring Provider Nurse Practitioner Adult Health; Visit Provider Nurse Practitioner Adult Health
DX: R22.0 Localized swelling, mass and lump, head (principal)
CPT/HCPCS: 70492; Q9967

== ENCOUNTER 2024-02-27 05:19 | Day surgery (SDC) | payer MEDICARE, BC, SELFPAY ==
--- NOTE | 2024-02-24 10:55 | PAT.ANESEVAL ---
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 When Was Last Pacemaker Check QUESTION #4 FULL TEXT: You/Your Family Experience fever (hyperthermia) with Anesthesia Last Oral Intake Last Oral intake: Last Oral Intake NPO since Meds taken in AM with sips of water? Meds patient instructed to take am of surgery PONV PONV - supply chain logistics manager: PONV - supply chain logistics manager Female Yes 02/24/24 09:33 HX of Motion Sickness No 02/24/24 09:33 HX of N/V After Surgery No 02/24/24 09:33 Non-Smoker Yes 02/24/24 09:33 Duration of Surgery greater No 02/24/24 09:33 than 60 minutes Number of Risk Factors 2 02/24/24 09:33 PONV Score Moderate Risk 02/24/24 09:33 Height & Weight Height & Weight: Anesthesia: Height & Weight Height 5 ft 6 in 03/07/23 14:38 Respiratory Assessment Respiratory Assessment - supply chain logistics manager: Respiratory Tract Infection Hx - supply chain logistics manager Hx Respiratory Tract Infection No 02/24/24 09:33 STOP Sleep Apnea STOP Sleep Apnea - supply chain logistics manager: STOP Sleep Apnea - supply chain logistics manager Hx Hypertension Yes: CONTROLLED WITH MEDS 02/24/24 09:33 Hx Sleep Apnea No 02/24/24 09:33 CPAP No 10/25/21 14:53 BIPAP No 10/25/21 14:53 Do you snore loudly (louder No 02/24/24 09:33 than talking or can be heard Do you often feel tired/ No 02/24/24 09:33 fatigued/ sleepy during daytime? Has anyone observed you stop No 02/24/24 09:33 breathing during sleep? STOP Results Negative 02/24/24 09:33 QUESTION #5 FULL TEXT : Do you snore loudly (louder than talking or can be heard through closed doors)? Tobacco Use History Tobacco Use History - supply chain logistics manager: Tobacco Use History - supply chain logistics manager Tobacco Use Smoking Status Never smoker 02/24/24 09:33 Hx Tobacco Use No 02/24/24 09:33 Years Smoking Packs Smoked per Day Smoking Cessation Date was within the last 15 years Hx Smoking Cessation Date Hx Smoking Cessation Counseling Hematologic Medial History Hematologic Hx - supply chain logistics manager: Hematologic Medical Hx - radiologist diagnostic Hx of Blood Transfusion No 02/24/24 09:33 Hx of Transfusion in last 3 No 02/24/24 09:33 Months Date of Last Transfusion (if within last 3 months) Ever experience any problems No 02/24/24 09:33 with transfusion(s)? Specify any problems Hx of Preganancy in last 3 No 02/24/24 09:33 Months Nurse Filling Out Transfusion DSCHRIBER 02/24/24 09:33 & Questions: Date: 02/24/24 02/24/24 09:33 Time: 09:34 02/24/24 09:33 Patient unable to answer at this time (ie. confused, unrespo /Reproduction History /Reproductive History - supply chain logistics manager: /Reproductive Hx- supply chain logistics manager Hx Now No 02/24/24 09:33 Gestational Age (in weeks): EDC: Hx Hx Para Hx Section SAB No 02/24/24 09:33 PFSH Medical History (Updated 02/24/24 @ 09:38 by Esthela Lindquist) Wears dentures Wears glasses Post-menopausal Depression Diabetes Thyroid disease Walker as ambulation aid Arthritis Anemia High cholesterol Back pain Injury of back Difficulty swallowing History of hiatal hernia Gastric reflux Non-smoker History of pain when walking History of stress test History of echocardiogram Cardiology follow-up encounter Zenkers diverticulum Polyneuropathy Hemorrhoids GERD (gastroesophageal reflux disease) Diverticulitis Diabetic retinopathy Esophageal stenosis Tachy-christy syndrome History of patent ductus arteriosus Sleep apnea SSS (sick sinus syndrome) Pure hypercholesterolemia Type 2 diabetes mellitus Congestive heart failure Atherosclerotic heart disease of [place] coronary artery without angina pectoris Essential hypertension Home Medications ?Medication ?Instructions ?Recorded ?Last Taken ?Type losartan 25 mg tablet 25 mg PO DAILY 10/08/18 10/31/21 History trazodone 50 mg tablet 50 mg PO QHS 10/08/18 10/31/21 History atorvastatin 20 mg tablet 20 mg PO DAILY #90 tabs 10/09/18 11/01/21 Rx coenzyme Q10 200 mg capsule (Co 200 mg PO DAILY 04/13/19 10/31/21 History Q-10) hydrocodone 7.5 mg-acetaminophen 1 tab PO DAILY Pain 04/13/19 Unknown History 325 mg tablet ([place]) levothyroxine 25 mcg tablet 25 mcg PO DAILY 11/20/19 11/01/21 History citalopram 20 mg tablet 20 mg PO DAILY 09/28/21 10/31/21 History metformin 500 mg tablet 500 mg PO DAILY 03/07/23 Unknown History pantoprazole 40 mg tablet,delayed 40 mg PO BID #60 tabs 02/07/24 Unknown Rx release acetaminophen 500 mg tablet 1,000 mg PO Q6H 02/24/24 Unknown History (Acetaminophen Extra Strength) nebivolol 5 mg tablet 5 mg PO DAILY 02/24/24 Unknown History Allergy/AdvReac Type Severity Reaction Status Date / Time sitagliptin (From ) Allergy Severe Swelling Verified 02/24/24 09:29 face and legs Penicillins Allergy Unknown Unknown Verified 02/24/24 09:29 Family History Mother Diabetes Hypertension CVA (cerebral vascular accident) Brother CVA (cerebral vascular accident) Diabetes Hypertension Surgical History History of throat surgery History of appendectomy Status post aorta repair (~2008) History of coronary artery bypass surgery (~09/2015) Social History Smoking Status: Never smoker alcohol intake: current details: Rare substance use type: does not use caffeine: Yes Type: carbonated beverages and coffee Number of servings: 3 Audit: Pertinent Findings Pertinent Findings EKG Perinent findings: March 07, 2023. Sinus rhythm?first-degree AV block. Left ventricular hypertrophy. Stress test pertinent findings: November 05, 2018. Ejection fraction is 81%. No ischemia. No previous infarct. Echo (EF%) pertinent findings: April 03, 2021. Ejection fraction 65%. No aortic stenosis noted. Consult pertinent findings: March 07, 2023. Tami RANDLE. 1. Tachybradycardia syndrome. History of sick sinus syndrome and bradycardia. Plan for Holter. 2. Coronary artery bypass surgery. No ongoing symptoms. 3. History of patent ductus arteriosus. This was repaired 1958 4. Status post aorta repair-this is followed over serial echoes. 5. Essential hypertension?controlled Additional pertinent findings: 14-day Holter done. July 18 through July 31, 2022. Sinus rhythm with PACs Recommendation Anesthesia Recommendation Anesthesia recommendation: OPTIMIZED for anesthesia
[2024-02-27] VITALS (7 sets, daily range): BP systolic 113–168; BP diastolic 54–82; PULSE 67–87; RESP 16; TEMP 36.2–36.9; O2SAT 93–100; BMI 25.4
[2024-02-27 06:18] LABS: Bedside Glucose 88 mg/dL (74-106)
--- NOTE | 2024-02-27 06:30 | EGD_PTH ---
PATIENT: NORRIS PASCUAL LOC: EN U#:[id number] AGE/SX: 89/F ROOM: RE02/27/[address]: Dr. Lg Kirkland DO : 1935 BED: DIS: 02/27/2024 SPEC #: [id number] RECD: 02/27/24 08:55 STATUS: CHLOÉ JACLYN #: [id number] BLAKE: 02/27/24 06:[address]: Lg Kirkland DEPT: SURGICAL PATHOLOGY RECD BY: Shalini Simpson ENTERED: 02/27/24 11:25 SP TYPE: EGD BIOPSY JOSY DR: Dr. Shaquille Thacker MD Tissues: Esophagus, NOS Procedures: Special Stain Group I Surgery Specimen Level IV Alcian Blue/PAS (control) HEADER OPERATION: EGD, biopsy, dilatation PRE-OP DIAGNOSIS: Localized swelling, mass and lump, neck TISSUE SUBMITTED: Distal esophagus biopsy MICROSCOPIC DIAGNOSIS Distal esophagus, biopsy: Fragments of gastroesophageal mucosa with moderate acute and chronic inflammation and reactive changes. Intestinal metaplasia (goblet cell metaplasia) is not identified. See comment. Bobby 02/28/2024 COMMENT Alcian blue/PAS stain with matched control is used in the evaluation of the specimen. MICROSCOPIC DESCRIPTION Slides are reviewed. GROSS DESCRIPTION Received in fixative is one container labeled with the patient's name and designated Distal esophagus biopsy. The specimen consists of multiple irregular fragments of light [place]o soft tissue that in aggregate measure 1.0 x 0.5 x 0.1 cm. The specimen is totally submitted in one cassette. 02/27/2024 TC:3 CPT:80065,73294
--- NOTE | 2024-02-27 06:43 | PCM.PRE.AN2 ---
ASA Classification* ASA Classification ASA Classification: 3 Assessment & Plan Anesthesia* Anesthesia Assessment Anesthesia Assessment: Discussed sedation and/or anesthesia options, risks, benefits, and alternatives with patient/parents/legal guardian/POA. Questions invited. The patient/parents/legal guardian/POA seems to understand and agrees to proceed with anesthesia plan. Reviewed the physical assessment, medical history, allergy history and patient home medications list prior to surgery/procedure/anesthetic and documented any changes. Performed airway and anesthesia risk assessments. Anesthesia Type Anesthesia Type: MAC History Source History Obtained from:: Patient and Chart Anesthesia Focused Assessment* Temperature: 98.4 F Pulse Rate: 87 Blood Pressure: 168/82 Respiratory Rate: 16 Pulse Ox: 100 Airway Assessment Mouth opens: >3 cm Mallampati Score: II Focused Labs Anesthesia Preop lab: CBC WBC 6.7 K/mm3 (4.4-11.0) 04/13/19 14:29 RBC 4.42 M/mm3 (4.2-5.4) 04/13/19 14:29 Hgb 12.4 g/dL (12.0-15.0) 04/13/19 14:29 Hct 38.9 % (37-47) 04/13/19 14:29 Plt Count 237 K/mm3 (150-450) 04/13/19 14:29 CHEMISTRY POC Glucose 88 mg/dL (74-106) 02/27/24 05:55 COAG Pre-Assessment Diagnosis/Proposed Procedure Planned Operative Procedure(s): EGD Anesthesia History Anesthesia History - flux tube attendant: Anesthesia History - flux tube attendant Hx Hospitalization No 02/24/24 09:33 Any Problems With Anesthesia No 02/24/24 09:33 Cholinesterase deficiency No 02/24/24 09:33 You/Your Family Experience No 02/24/24 09:33 fever (hyperthermia) with Relationship Recent Exposure to Contagious No 02/27/24 05:50 Disease Does patient have nerve No 02/24/24 09:33 stimulator Patient instructed to have device shut off --Does patient have Pacemaker No 02/27/24 05:50 or ICD? When Was Last Pacemaker Check QUESTION #4 FULL TEXT: You/Your Family Experience fever (hyperthermia) with Anesthesia Last Oral Intake Last Oral intake: Last Oral Intake NPO since Meds taken in AM with sips of water? Meds patient instructed to take am of surgery PONV PONV - flux tube attendant: PONV - flux tube attendant Female Yes 02/24/24 09:33 HX of Motion Sickness No 02/24/24 09:33 HX of N/V After Surgery No 02/24/24 09:33 Non-Smoker Yes 02/24/24 09:33 Duration of Surgery greater No 02/24/24 09:33 than 60 minutes Number of Risk Factors 2 02/24/24 09:33 PONV Score Moderate Risk 02/24/24 09:33 Height & Weight Height & Weight: Anesthesia: Height & Weight Height 5 ft 6 in 02/27/24 05:50 Weight: 71.668 kg 02/27/24 05:50 Body Mass Index (BMI) 25.4 02/27/24 05:50 Respiratory Assessment Respiratory Assessment - flux tube attendant: Respiratory Tract Infection Hx - flux tube attendant Hx Respiratory Tract Infection No 02/24/24 09:33 STOP Sleep Apnea STOP Sleep Apnea - flux tube attendant: STOP Sleep Apnea - flux tube attendant Hx Hypertension Yes: CONTROLLED WITH MEDS 02/24/24 09:33 Hx Sleep Apnea No 02/24/24 09:33 CPAP No 10/25/21 14:53 BIPAP No 10/25/21 14:53 Do you snore loudly (louder No 02/24/24 09:33 than talking or can be heard Do you often feel tired/ No 02/24/24 09:33 fatigued/ sleepy during daytime? Has anyone observed you stop No 02/24/24 09:33 breathing during sleep? STOP Results Negative 02/24/24 09:33 QUESTION #5 FULL TEXT : Do you snore loudly (louder than talking or can be heard through closed doors)? Tobacco Use History Tobacco Use History - flux tube attendant: Tobacco Use History - flux tube attendant Tobacco Use Smoking Status Never smoker 02/24/24 09:33 Hx Tobacco Use No 02/24/24 09:33 Years Smoking Packs Smoked per Day Smoking Cessation Date was within the last 15 years Hx Smoking Cessation Date Hx Smoking Cessation Counseling Hematologic Medial History Hematologic Hx - flux tube attendant: Hematologic Medical Hx - calendar control clerk blood bank Hx of Blood Transfusion No 02/24/24 09:33 Hx of Transfusion in last 3 No 02/24/24 09:33 Months Date of Last Transfusion (if within last 3 months) Ever experience any problems No 02/24/24 09:33 with transfusion(s)? Specify any problems Hx of Preganancy in last 3 No 02/24/24 09:33 Months Nurse Filling Out Transfusion DSCHRIBER 02/24/24 09:33 & Questions: Date: 02/24/24 02/24/24 09:33 Time: 09:34 02/24/24 09:33 Patient unable to answer at this time (ie. confused, unrespo /Reproduction History /Reproductive History - flux tube attendant: /Reproductive Hx- flux tube attendant Hx Now No 02/24/24 09:33 Gestational Age (in weeks): EDC: Hx Hx Para Hx Section SAB No 02/24/24 09:33 [facility] Medical History Wears dentures Wears glasses Post-menopausal Depression Diabetes Thyroid disease Walker as ambulation aid Arthritis Anemia High cholesterol Back pain Injury of back Difficulty swallowing History of hiatal hernia Gastric reflux Non-smoker History of pain when walking History of stress test History of echocardiogram Cardiology follow-up encounter Zenkers diverticulum Polyneuropathy Hemorrhoids GERD (gastroesophageal reflux disease) Diverticulitis Diabetic retinopathy Esophageal stenosis Tachy-christy syndrome History of patent ductus arteriosus Sleep apnea SSS (sick sinus syndrome) Pure hypercholesterolemia Type 2 diabetes mellitus Congestive heart failure Atherosclerotic heart disease of [place] coronary artery without angina pectoris Essential hypertension Home Medications ?Medication ?Instructions ?Recorded ?Last Taken ?Type losartan 25 mg tablet 25 mg PO DAILY 10/08/18 10/31/21 History trazodone 50 mg tablet 50 mg PO QHS 10/08/18 10/31/21 History atorvastatin 20 mg tablet 20 mg PO DAILY #90 tabs 10/09/18 11/01/21 Rx coenzyme Q10 200 mg capsule (Co 200 mg PO DAILY 04/13/19 10/31/21 History Q-10) hydrocodone 7.5 mg-acetaminophen 1 tab PO DAILY Pain 04/13/19 Unknown History 325 mg tablet ([place]) levothyroxine 25 mcg tablet 25 mcg PO DAILY 11/20/19 11/01/21 History citalopram 20 mg tablet 20 mg PO DAILY 09/28/21 10/31/21 History metformin 500 mg tablet 500 mg PO DAILY 03/07/23 Unknown History pantoprazole 40 mg tablet,delayed 40 mg PO BID #60 tabs 02/07/24 Unknown Rx release acetaminophen 500 mg tablet 1,000 mg PO Q6H 02/24/24 Unknown History (Acetaminophen Extra Strength) nebivolol 5 mg tablet 5 mg PO DAILY 02/24/24 Unknown History Allergy/AdvReac Type Severity Reaction Status Date / Time sitagliptin (From Feb) Allergy Severe Swelling Verified 02/27/24 05:50 face and legs Penicillins Allergy Unknown Unknown Verified 02/27/24 05:50 Family History Mother Diabetes Hypertension CVA (cerebral vascular accident) Brother CVA (cerebral vascular accident) Diabetes Hypertension Surgical History History of throat surgery History of appendectomy Status post aorta repair (~2008) History of coronary artery bypass surgery (~09/2015) Social History Smoking Status: Never smoker alcohol intake: current details: Rare substance use type: does not use caffeine: Yes Type: carbonated beverages and coffee Number of servings: 3 Review of Systems (Anesthesia) ROS Narrative System reviewed and no additional complaints, except as documented.
--- NOTE | 2024-02-27 07:00 | HP.PCM_ITS ---
HPI - General General Date of Admission: 02/27/24 Date of Service: 02/27/24 Chief Complaint: dysphagia HPI Narrative NORRIS PASCUAL, is a 88 F who presents to the office today for f/u. [facility] established 10.25.21 Accompanied by KATHY Horta. Recently coughed up a hotdog that she had eaten a day or two prior. Abnormal esophagram last month--concentric narrowing at distal esophagus at [facility]; barium tablet trapped at [facility]. Hx of esophageal stenosis requiring dilation. Last EGD [address] Gonzalez at [facility]. Lots of foam then; acid has decreased with less caffeine after that. She takes pantoprazole 20 mg BID, she has taken this for years. Also Hx Zenker's diverticulum, large abscess once, surgery x 2. She c/o soreness on the left side of neck where she had the abscess, started a month ago. EGD 11.01.21- The nasopharynx and oropharynx are abnormal. - Benign-appearing esophageal stenosis. Dilated. - Small hiatal hernia. - Normal second portion of the duodenum. Biopsied. OV 02.07.24 Pt has started to have issues with swallowing again. She will regurgitate with every meal although she does not feel like it is stuck. This is very similar to the symptoms she was having prior to last EGD. SHe felt much better and was able to eat without regurgitation. She has diarrhea every couple weeks and takes imodium as needed.She denies heartburn, n/v, abd pain, constiapation or blood in her stool. [facility] Medical History Wears dentures Wears glasses Post-menopausal Depression Diabetes Thyroid disease Walker as ambulation aid Arthritis Anemia High cholesterol Back pain Injury of back Difficulty swallowing History of hiatal hernia Gastric reflux Non-smoker History of pain when walking History of stress test History of echocardiogram Cardiology follow-up encounter Zenkers diverticulum Polyneuropathy Hemorrhoids GERD (gastroesophageal reflux disease) Diverticulitis Diabetic retinopathy Esophageal stenosis Tachy-christy syndrome History of patent ductus arteriosus Sleep apnea SSS (sick sinus syndrome) Pure hypercholesterolemia Type 2 diabetes mellitus Congestive heart failure Atherosclerotic heart disease of [place] coronary artery without angina pectoris Essential hypertension Home Medications ?Medication ?Instructions ?Recorded ?Last Taken ?Type losartan 25 mg tablet 25 mg PO DAILY 10/08/18 10/31/21 History trazodone 50 mg tablet 50 mg PO QHS 10/08/18 10/31/21 History atorvastatin 20 mg tablet 20 mg PO DAILY #90 tabs 10/09/18 11/01/21 Rx coenzyme Q10 200 mg capsule (Co 200 mg PO DAILY 04/13/19 10/31/21 History Q-10) hydrocodone 7.5 mg-acetaminophen 1 tab PO DAILY Pain 04/13/19 Unknown History 325 mg tablet ([place]) levothyroxine 25 mcg tablet 25 mcg PO DAILY 11/20/19 11/01/21 History citalopram 20 mg tablet 20 mg PO DAILY 09/28/21 10/31/21 History metformin 500 mg tablet 500 mg PO DAILY 03/07/23 Unknown History pantoprazole 40 mg tablet,delayed 40 mg PO BID #60 tabs 02/07/24 Unknown Rx release acetaminophen 500 mg tablet 1,000 mg PO Q6H 02/24/24 Unknown History (Acetaminophen Extra Strength) nebivolol 5 mg tablet 5 mg PO DAILY 02/24/24 Unknown History Allergy/AdvReac Type Severity Reaction Status Date / Time sitagliptin (From ) Allergy Severe Swelling Verified 02/27/24 05:50 face and legs Penicillins Allergy Unknown Unknown Verified 02/27/24 05:50 Family History Mother Diabetes Hypertension CVA (cerebral vascular accident) Brother CVA (cerebral vascular accident) Diabetes Hypertension Surgical History History of throat surgery History of appendectomy Status post aorta repair (~2008) History of coronary artery bypass surgery (~09/2015) Social History Smoking Status: Never smoker alcohol intake: current details: Rare substance use type: does not use caffeine: Yes Type: carbonated beverages and coffee Number of servings: 3 ROS Constitutional Constitutional: Denies fatigue, fever(s), poor appetite, weight gain or weight l oss Gastrointestinal Gastrointestinal: Denies belching, bloating, change in bowel habits, change in stool character, chewing difficulty, coffee ground emesis, constipation, cramping, diarrhea, dyspepsia, dysphagia, early satiety, excessive flatus, fecal incontinence, heartburn, hematemesis, hematochezia, hemorrhoids, loose stools, melena, nausea, odynophagia, rectal bleeding, tenesmus, vomiting or weight changes Vital Signs Vital Signs Vital Signs: 02/27/24 05:50 02/27/24 05:50 02/27/24 06:43 Temperature 98.4 F 98.4 F Temperature Source Temporal Pulse Rate 87 87 Respiratory Rate 16 16 Respiratory Pattern Normal Blood Pressure 168/82 H 168/82 H Blood Pressure Mean 110 Blood Pressure Source Monitor Blood Pressure Position Semi-Fowlers Blood Pressure Location Left Arm Pulse Ox 100 100 Oxygen Delivery Method Room Air Weight Weight: 158 lb Body Mass Index (BMI) 25.4 Physical Exam Const alert, oriented x3, no apparent distress and healthy appearing General Appearance: cooperative GI normal to inspection, nondistended, normoactive bowel sounds, soft to palpation, non-tender and non-distended Percussion: normal to percussion Rectal Exam: deferred Results Lab / Micro Data Labs: Laboratory Results - last 24 hr 02/27/24 05:55: POC Glucose 88 Assessment & Plan Assessment/Plan (1) Neck mass: PLAN: 1) Difficulty swallowing: Status: Acute Plan: This is an 88 yo female pt here today for dysphagia. SHe has had this in the past and has had good results with EGD with dilation. SHe is regurgitating every time she eats. She will undergo EGD with dilation. She will increase PPI to 40 mg BID in the meantime. SHe is agreeable to plan. -EGD with dilation -Increase PPI -f/u as needed Medications: New pantoprazole 40 mg PO BID 60 tabs 3RF
--- NOTE | 2024-02-27 07:29 | OP.EGD_ITS ---
Patient Name: Cyndi Mejia Procedure Date: 02/27/2024 6:44 AM Date of : 1935 Age: 89 Procedure: Upper GI endoscopy Indications: Dysphagia Providers: Lg Kirkland DO Medicines: Monitored Anesthesia Care Patient Profile: This is an 89 year old female. Refer to note in patient chart for documentation of history and physical. Patient has symptoms of dysphagia with both liquids and solids. The symptoms first began within the past few weeks. Her most recent EGD for dilation was within the past year. Complications: No immediate complications. Procedure: Pre-Anesthesia Assessment: - Prior to the procedure, a History and Physical was performed, and patient medications and allergies were reviewed. The patient is competent. The risks and benefits of the procedure and the sedation options and risks were discussed with the patient. All questions were answered and informed consent was obtained. Patient identification and proposed procedure were verified by the physician in the pre-procedure area. Mental Status Examination: alert and oriented. Airway Examination: normal oropharyngeal airway and neck mobility. Respiratory Examination: clear to auscultation. CV Examination: normal. Prophylactic Antibiotics: The patient does not require prophylactic antibiotics. Prior Anticoagulants: The patient has taken no anticoagulant or antiplatelet agents except for NSAID medication. ASA Grade Assessment: II - A patient with mild systemic disease. After reviewing the risks and benefits, the patient was deemed in satisfactory condition to undergo the procedure. The anesthesia plan was to use monitored anesthesia care (MAC). Immediately prior to administration of medications, the patient was re-assessed for adequacy to receive sedatives. The heart rate, respiratory rate, oxygen saturations, blood pressure, adequacy of pulmonary ventilation, and response to care were monitored throughout the procedure. The physical status of the patient was re-assessed after the procedure. After obtaining informed consent, the endoscope was passed under direct vision. Throughout the procedure, the patient's blood pressure, pulse, and oxygen saturations were monitored continuously. The gastroscope was introduced through the mouth, and advanced to the second part of duodenum. The upper GI endoscopy was performed with difficulty due to narrowing. The patient tolerated the procedure well. Scope In: 7:10:03 AM Scope Out: 7:23:55 AM Total Procedure Duration Time 0 hours 13 minutes 52 seconds Findings: One benign-appearing, intrinsic severe stenosis was found 37 to 40 cm from the incisors. This stenosis measured 3 mm (inner diameter) x 3 cm (in length). The stenosis was traversed after dilation. A TTS dilator was passed through the scope. Dilation with an 18-19-20 mm balloon dilator was performed to 16 mm. The dilation site was examined following endoscope reinsertion and showed moderate mucosal disruption. Biopsies were taken with a cold forceps for histology. Verification of patient identification for the specimen was done. Estimated blood loss was minimal. A medium-sized hiatal hernia was present. The duodenal bulb was normal. Impression: - Benign-appearing esophageal stenosis. Dilated. Biopsied. - Medium-sized hiatal hernia. - Normal duodenal bulb. Recommendation: - Discharge patient to home. - Resume previous diet. - Continue present medications. - Await pathology results. Procedure Code(s): --- Professional --- 05118, Esophagogastroduodenoscopy, flexible, transoral; with transendoscopic balloon dilation of esophagus (less than 30 mm diameter) 34064, 59,51, Esophagogastroduodenoscopy, flexible, transoral; with biopsy, single or multiple CPT copyright 2021 [employer]. All rights reserved. The codes documented in this report are preliminary and upon booking agent review may be revised to meet current compliance requirements. Lg Kirkland DO 02/27/2024 7:28:41 AM This report has been signed electronically. Number of Addenda: 0 Note Initiated On: 02/27/2024 6:44 AM
--- NOTE | 2024-02-27 07:32 | PCM.POST.ANE ---
Anesthesia: Postop Eval I Current Vital Signs Temperature: 97.4 F Pulse Rate: 67 Blood Pressure: 113/54 Respiratory Rate: 16 Pulse Ox: 96 Oxygen Delivery Method: Room Air Assessment Airway patent: Yes Spontaneous unlabored respirations: Yes Mental status: Asleep nausea: No Vomiting: No Anesthesia Complication: No Fluid Hydration Crystalloid volume administer (ml): 30 Total IV fluid infused: 30 Progress Note Anesthesia document: Postop Eval 1 completed: Yes
--- NOTE | 2024-02-27 11:39 | PCM.POSTANE2 ---
Anesthesia Postop Eval I Sum Postop Eval Completion status Anesthesia document: Postop Eval 1 completed: Yes Anesthesia Postop Eval I Summary Anesthesia Postop Eval I Summary: Anesthesia Postop Eval I: Assessment Summary Airway patent Yes 02/27/24 07:33 [email or web address] Spontaneous unlabored Yes 02/27/24 07:33 [email or web address] respirations Mental status Asleep 02/27/24 07:33 [email or web address] nausea No 02/27/24 07:33 [email or web address] Vomiting No 02/27/24 07:33 [email or web address] Anesthesia Postop Eval I: Fluid Summary Crystalloid volume administer 30 02/27/24 07:33 [email or web address] (ml) Colloids volume administered ( ml) Blood Product volume administered (ml) Total IV fluid infused 30 02/27/24 07:33 [email or web address] Anesthesia Postop Eval I: Summary Notes Anesthesia Complication No 02/27/24 07:33 [email or web address] Anesthesia Complication Comment: Post-operative progress note Anesthesia: Postop Eval II Evaluation Mental status: Awake and Calm Pain Level: 0 nausea: No Vomiting: No Complications Anesthesia Complication: No
== END 2024-02-27 08:16 | disposition home or self-care (01) ==
LOC: EN 05:21 → AC 05:23
PROVIDERS: PCP Family Medicine; Referring Provider Family Medicine; Visit Provider Internal Medicine Gastroenterology
PROC: 0DJ08ZZ Inspection of Upper Intestinal Tract, Via Natural or Artificial Opening Endoscopic (ICD-10-PCS; CPT 43235; principal; 2024-02-27 06:25)
DX: K21.00 Gastro-esophageal reflux disease with esophagitis, without bleeding (principal); I11.0 Hypertensive heart disease with heart failure; I50.9 Heart failure, unspecified; E11.42 Type 2 diabetes mellitus with diabetic polyneuropathy; K44.9 Diaphragmatic hernia without obstruction or gangrene; K22.2 Esophageal obstruction; I25.10 Atherosclerotic heart disease of native coronary artery without angina pectoris; E78.00 Pure hypercholesterolemia, unspecified
CPT/HCPCS: 43249; 43239; 82962; 88305; 88312; J2405

== ENCOUNTER 2024-04-16 20:39 | Inpatient (IN) | payer MEDICARE, BC, SELFPAY ==
[2024-04-16 20:40] VITALS: BP 206/90; PULSE 100; RESP 18; TEMP 36.8; O2SAT 97; BMI 25.9
--- NOTE | 2024-04-16 21:58 | CT_ITS ---
PROCEDURE: SINUS/FACIAL BONE REASON FOR EXAM: Trauma. TECHNIQUE: CT of the paranasal sinuses without contrast. COMPARISON: None. FINDINGS: Frontal: Frontal sinuses and frontoethmoidal recesses appear clear. Ethmoid: Ethmoid air cells appear clear. Sphenoid: Sphenoid sinuses and sphenoethmoidal recesses appear clear. Maxillary: Maxillary sinuses appear clear. The ostiomeatal units appear widely patent. Turbinates: Unremarkable. Nasal Septum: Midline. No large nasal septal spur. Mastoids/Middle Ears: Clear at visualized levels. Visualized intracranial structures are unremarkable. No suspicious contrast enhancement. CT/Sinus/Facial Bone IMPRESSION: No acute facial bone fracture. One or more dose reduction techniques were used (e.g., Automated exposure contr ol, adjustment of the mA and/or kV according to patient size, use of iterative reconstruction technique). Reading Location: [place] [id number]
--- NOTE | 2024-04-16 21:58 | RAD_ITS ---
PROCEDURE: SHOULDER MIN 2 VIEWS REASON FOR EXAM: Trauma. TECHNIQUE: 7 views of the right shoulder. COMPARISON: None. FINDINGS: Acute, displaced right humeral neck fracture. No evidence of dislocation. Degenerative changes of the acromioclavicular and glenohumeral joints. RAD/Shoulder min 2 Views IMPRESSION: Acute, displaced right humeral neck fracture. Reading Location: [place] [id number]
--- NOTE | 2024-04-16 21:58 | CT_ITS ---
EXAM: CT head. CLINICAL HISTORY: Trauma. COMPARISON: 11/04/2018. TECHNIQUE: CT of the head without contrast was performed. FINDINGS: Moderate global parenchymal atrophy. Moderate chronic microvascular ischemia. No evidence of acute hemorrhage or infarction. No extra-axial blood or fluid collections. The paranasal sinuses are clear. The calvarial vault and skull base are intact. CT/Brain/Head without Contrast IMPRESSION: No acute intracranial abnormality. Reading Location: [id number]
--- NOTE | 2024-04-16 21:59 | EDS_ITS ---
HPI HPI - Fall History of Present Illness Chief Complaint: Fall Narrative Narrative: 89-year-old female resident of assisted living at [facility], slipped out of the bed just prior to arrival. She states that she had washed one of her feet, and went to wash the other 1 when she slid out of bed. She fell onto her right side, mainly her right shoulder. She denies hitting her head or loss of consciousness, no neck pain, but complains of right cheek redness. She may have hit her right cheek on the floor. She states it all happened so quickly. She pressed her [employer] alert call button and needed assistance in getting up. She is right-hand dominant complains mainly of right shoulder pain, and inability to move her right upper extremity. She usually takes hydrocodone acetaminophen for arthritis. Her son also states that she is on a blood thinner which she thinks may be Plavix. Patient denies any neck pain or other injury but complains mainly of right shoulder pain worse with movement. It is relieved by nothing. [facility] Medical History Wears dentures Wears glasses Post-menopausal Depression Diabetes Thyroid disease Walker as ambulation aid Arthritis Anemia High cholesterol Back pain Injury of back Difficulty swallowing History of hiatal hernia Gastric reflux Non-smoker History of pain when walking History of stress test History of echocardiogram Cardiology follow-up encounter Zenkers diverticulum Polyneuropathy Hemorrhoids GERD (gastroesophageal reflux disease) Diverticulitis Diabetic retinopathy Esophageal stenosis Tachy-christy syndrome History of patent ductus arteriosus Sleep apnea SSS (sick sinus syndrome) Pure hypercholesterolemia Type 2 diabetes mellitus Congestive heart failure Atherosclerotic heart disease of [place] coronary artery without angina pectoris Essential hypertension Home Medications ?Medication ?Instructions ?Recorded ?Last Taken ?Type losartan 25 mg tablet 25 mg PO DAILY 10/08/1808/16 History trazodone 50 mg tablet 50 mg PO QHS 10/08/18 History atorvastatin 20 mg tablet 20 mg PO DAILY #90 tabs 09/2511/01/21 Rx coenzyme Q10 200 mg capsule (Co 200 mg PO DAILY 10/31/21 History Q-10) hydrocodone 7.5 mg-acetaminophen 1 tab PO DAILY Pain 0 04/13/19 Unknown History 325 mg tablet ([place]) levothyroxine 25 mcg tablet 25 mcg PO DAILY 11/20/19 0 11/01/21 History citalopram 20 mg tablet 20 mg PO DAILY 09/28/2108/16 History metformin 500 mg tablet 500 mg PO DAILY 03/07/23 Unk nown History pantoprazole 40 mg tablet,delayed 40 mg PO BID #60 tab s 02/07/24 Unknown Rx release acetaminophen 500 mg tablet 1,000 mg PO Q6H 02/24/24 U nknown History (Acetaminophen Extra Strength) nebivolol 5 mg tablet 5 mg PO DAILY 02/24/24 Unkno wn History Allergy/AdvReac Type Severity Reaction Status Date / Time sitagliptin (From ) Allergy Severe Swelling Verified 04/16/24 20:44 face and legs Penicillins Allergy Unknown Unknown Verified 04/16/24 20:44
--- NOTE | 2024-04-16 21:59 | ED.VIS.FALL ---
HPI HPI - Fall History of Present Illness Chief Complaint: Fall Narrative Narrative: 89-year-old female resident of assisted living at [facility], slipped out of the bed just prior to arrival. She states that she had washed one of her feet, and went to wash the other 1 when she slid out of bed. She fell onto her right side, mainly her right shoulder. She denies hitting her head or loss of consciousness, no neck pain, but complains of right cheek redness. She may have hit her right cheek on the floor. She states it all happened so quickly. She pressed her [employer] alert call button and needed assistance in getting up. She is right-hand dominant complains mainly of right shoulder pain, and inability to move her right upper extremity. She usually takes hydrocodone acetaminophen for arthritis. Her son also states that she is on a blood thinner which she thinks may be Plavix. Patient denies any neck pain or other injury but complains mainly of right shoulder pain worse with movement. It is relieved by nothing. [facility] Medical History Wears dentures Wears glasses Post-menopausal Depression Diabetes Thyroid disease Walker as ambulation aid Arthritis Anemia High cholesterol Back pain Injury of back Difficulty swallowing History of hiatal hernia Gastric reflux Non-smoker History of pain when walking History of stress test History of echocardiogram Cardiology follow-up encounter Zenkers diverticulum Polyneuropathy Hemorrhoids GERD (gastroesophageal reflux disease) Diverticulitis Diabetic retinopathy Esophageal stenosis Tachy-christy syndrome History of patent ductus arteriosus Sleep apnea SSS (sick sinus syndrome) Pure hypercholesterolemia Type 2 diabetes mellitus Congestive heart failure Atherosclerotic heart disease of [place] coronary artery without angina pectoris Essential hypertension Home Medications ?Medication ?Instructions ?Recorded ?Last Taken ?Type losartan 25 mg tablet 25 mg PO DAILY 10/08/18 10/31/21 History trazodone 50 mg tablet 50 mg PO QHS 10/08/18 10/31/21 History atorvastatin 20 mg tablet 20 mg PO DAILY #90 tabs 10/09/18 11/01/21 Rx coenzyme Q10 200 mg capsule (Co 200 mg PO DAILY 04/13/19 10/31/21 History Q-10) hydrocodone 7.5 mg-acetaminophen 1 tab PO DAILY Pain 04/13/19 Unknown History 325 mg tablet ([place]) levothyroxine 25 mcg tablet 25 mcg PO DAILY 11/20/19 11/01/21 History citalopram 20 mg tablet 20 mg PO DAILY 09/28/21 10/31/21 History metformin 500 mg tablet 500 mg PO DAILY 03/07/23 Unknown History pantoprazole 40 mg tablet,delayed 40 mg PO BID #60 tabs 02/07/24 Unknown Rx release acetaminophen 500 mg tablet 1,000 mg PO Q6H 02/24/24 Unknown History (Acetaminophen Extra Strength) nebivolol 5 mg tablet 5 mg PO DAILY 02/24/24 Unknown History Allergy/AdvReac Type Severity Reaction Status Date / Time sitagliptin (From Feb) Allergy Severe Swelling Verified 04/16/24 20:44 face and legs Penicillins Allergy Unknown Unknown Verified 04/16/24 20:44 Family History Mother Diabetes Hypertension CVA (cerebral vascular accident) Brother CVA (cerebral vascular accident) Diabetes Hypertension Surgical History History of throat surgery History of appendectomy Status post aorta repair (~2008) History of coronary artery bypass surgery (~09/2015) Social History (Updated 04/16/24 @ 23:[address] Nichole Bautista MD) household members: none Smoking Status: Never smoker alcohol intake: current details: Rare substance use type: does not use caffeine: Yes Type: carbonated beverages and coffee Number of servings: 3 ROS ROS ED ROS Narrative Review of systems positive for right shoulder pain worse with movement, and even when lying still. No loss of consciousness, no headache, no neck pain. Denies other injuries. No prodromal chest pain or shortness of breath. EXAM Physical Exam Narrative Exam Narrative: GCS 15. ABCs intact. PERRL, EOMI. Mild redness to right cheek with minimal tenderness, no crepitance. Neck soft and supple with full range of motion. Cardiovascular examination reveals a regular rate and rhythm. Lungs are clear to auscultation bilaterally. Abdomen is soft and nontender with normal active bowel sounds. Diffuse tenderness to palpation right shoulder without crepitance. Neurovascularly intact distally with palpable radial pulse. Uninjured at elbow and distally. Const Vital Signs: 04/16/24 20:40 04/16/24 20:52 Temperature 98.2 F Temperature Source Oral Pulse Rate 100 Respiratory Rate 18 Respiratory Effort Normal Non-Labored Respiratory Depth Normal Respiratory Pattern Normal Blood Pressure 206/90 H Blood Pressure Mean 128 Pulse Ox 97 Oxygen Delivery Method Room Air Room Air MDM MDM MDM Narrative Medical decision making narrative: I did review her halfway papers. CT of the brain as well as facial bones will be obtained to help rule out fracture or intracranial hemorrhage. Differential diagnosis also includes right shoulder dislocation versus fracture versus contusion versus fracture dislocation. Patient administered 2 Vicodin tablets that she usually takes 7.5 mg of hydrocodone/acetaminophen at the assisted living facility. On my independent interpretation of her x-ray of the right shoulder, there is a proximal humerus fracture. I reviewed the radiology report which confirms my independent interpretation and comments on the displaced humeral neck fracture. She was placed in a sling and swath. I reviewed the radiology report of the CT of the brain which shows no evidence of acute hemorrhage, no acute intracranial abnormality. I reviewed the radiology report for the facial CT as well and there is no evidence of an acute fracture. Regardless, patient states that she cannot return to the assisted living facility tonight. She and her son would like her at least observed as she will need a higher level of care given her immobility of the right shoulder. While she is agreeable to placement, she states she does not want to be transferred tonight, but this is not possible as there is no social work available at this hour. I ordered a saline lock, CBC, BMP, and UA and discussed the patient with the hospitalist for at least observation. Patient is in stable condition. History & Record Review Discussion w/independent historian: Patient and Family (Son) Radiography Diagnostic Testing: Clinical Impression(s) from Imaging Studies Brain CT 04/16/24 21:58 IMPRESSION: No acute intracranial abnormality. Reading Location: [id number] Facial/Sinus 04/16/24 21:58 IMPRESSION: No acute facial bone fracture. One or more dose reduction techniques were used (e.g., Automated exposure control, adjustment of the mA and/or kV according to patient size, use of iterative reconstruction technique). Reading Location: [id number] Shoulder X-Ray 04/16/24 21:58 IMPRESSION: Acute, displaced right humeral neck fracture. Reading Location: [place] [id number] Management Discussion w/another healthcare provider: Hospitalist (Dr. Bautista) Discharge Plan Dx/Rx/DC Orders Clinical Impression: Fall from bed, initial encounter, Closed fracture of proximal end of right humerus, Facial contusion Disposition Disposition: Acute Care Hospital [facility]
[2024-04-16] MEDS: HYDROcodone Bitartrate/Apap 5/325 Tablet PO (22:06)
[2024-04-16 23:36] VITALS: BP 140/92; PULSE 88; RESP 18; O2SAT 97
--- NOTE | 2024-04-16 23:41 | PCM.HP.STD ---
HPI - General General Date of Admission: 04/16/24 Date of Service: 04/16/24 Chief Complaint: Fall, R shoulder/arm pain, intractable. 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, CAD s/p CABG, Hx Dilated aortic root s/p repair who presents to the [facility] on 04/16/24 with mechanical fall living at [facility] living at [place] unfortunately slipping out of bed just prior to arrival as she was washing her feet and when she was attempted to wash her second foot she fell out of bed mainly onto her right side and right shoulder with no trauma to the head or loss of consciousness but did complain of notable discomfort to the right shoulder and inability to move her right upper extremity well noting the pain was worse with movement prompting ED evaluation be cautious. In the ED patient reports 10 out of 10 severe pain to the right arm/shoulder initially and upon current evaluation following at least oral narcotic regimen she reports the pain has decreased to 8 out of 10 in severity. Workup in the ED included T98.2, heart 100, BP 206/90, respiratory rate 18, 97% on room air, CT of the brain with no acute intracranial finding, CT sinus/facial bone with no acute facial bone fracture, plain film of the right shoulder with an acute displaced right humeral neck fracture. In the ED patient administered hydrocodone 2 tablet p.o. x 1 as well as morphine 4 mg IV x 1. In the ED sling and swath placed. Pending CBC, BMP, UA per ED physician upon requested evaluation of patient. [facility] Medical History Wears dentures Wears glasses Post-menopausal Depression Diabetes Thyroid disease Walker as ambulation aid Arthritis Anemia High cholesterol Back pain Injury of back Difficulty swallowing History of hiatal hernia Gastric reflux Non-smoker History of pain when walking History of stress test History of echocardiogram Cardiology follow-up encounter Zenkers diverticulum Polyneuropathy Hemorrhoids GERD (gastroesophageal reflux disease) Diverticulitis Diabetic retinopathy Esophageal stenosis Tachy-ivan syndrome History of patent ductus arteriosus Sleep apnea SSS (sick sinus syndrome) Pure hypercholesterolemia Type 2 diabetes mellitus Congestive heart failure Atherosclerotic heart disease of robinson coronary artery without angina pectoris Essential hypertension Home Medications ?Medication ?Instructions ?Recorded ?Last Taken ?Type losartan 25 mg tablet 25 mg PO DAILY 10/08/18 10/31/21 History trazodone 50 mg tablet 50 mg PO QHS 10/08/18 10/31/21 History hydrocodone 7.5 mg-acetaminophen 1 tab PO Q8H PRN Pain 04/13/19 Unknown History 325 mg tablet (Firth) levothyroxine 25 mcg tablet 25 mcg PO DAILY 11/20/19 11/01/21 History citalopram 20 mg tablet 20 mg PO DAILY 09/28/21 10/31/21 History metformin 500 mg tablet 500 mg PO BID 03/07/23 Unknown History nebivolol 5 mg tablet 5 mg PO DAILY 02/24/24 Unknown History acetaminophen 325 mg capsule 325 mg PO Q4H PRN fever or pain 04/16/24 Unknown History atorvastatin 20 mg tablet 20 mg PO QHS 04/16/24 Unknown History lidocaine 4 % topical patch 1 patch topical DAILY PRN pain 04/16/24 Unknown History (Lidocare) loperamide 2 mg capsule 2 mg PO TID PRN loose stool 04/16/24 Unknown History (Anti-Diarrheal (loperamide)) loperamide 2 mg capsule 4 mg PO PRN PRN loose stool 04/16/24 Unknown History (Anti-Diarrheal (loperamide)) magnesium hydroxide 400 mg/5 mL 30 ml PO DAILY PRN constipation 04/16/24 Unknown History oral suspension (Dulcolax (magnesium hydroxide)) magnesium oxide 400 mg PO BID 04/16/24 Unknown History pantoprazole 20 mg tablet,delayed 20 mg PO BID 04/16/24 Unknown History release Allergy/AdvReac Type Severity Reaction Status Date / Time sitagliptin (From ) Allergy Severe Swelling Verified 04/16/24 20:44 face and legs Penicillins Allergy Unknown Unknown Verified 04/16/24 20:44 Family History Mother Diabetes Hypertension CVA (cerebral vascular accident) Brother CVA (cerebral vascular accident) Diabetes Hypertension Surgical History History of throat surgery History of appendectomy Status post aorta repair (~2008) History of coronary artery bypass surgery (~09/2015) Social History household members: none Smoking Status: Never smoker alcohol intake: current details: Rare substance use type: does not use caffeine: Yes Type: carbonated beverages and coffee Number of servings: 3 ROS ROS Narrative Admission Review of Systems: CONSTITUTIONAL: No weight loss, fever, chills, + weakness or fatigue. HEENT: Eyes: No visual loss, blurred vision, double vision or yellow sclerae. Ears, Nose, Throat: No hearing loss, sneezing, congestion, runny nose or sore throat. SKIN: No rash or itching, lesions, wounds except very stage abrasions, ecchymoses with fall. CARDIOVASCULAR: No chest pain, chest pressure or chest discomfort, palpitations, edema, orthopnea, syncopal events. RESPIRATORY: No shortness of breath, cough or sputum, wheezing, hemoptysis. GASTROINTESTINAL: No anorexia, nausea, vomiting or diarrhea, abdominal pain, melena, BRBPR. GENITOURINARY: No dysuria, frequency, urgency or retention. NEUROLOGICAL: No headache, dizziness, syncope, paralysis, ataxia, numbness or tingling in the extremities, focal weakness, change in bowel or bladder control, seizure. MUSCULOSKELETAL: + muscle, back pain, joint pain or stiffness. HEMATOLOGIC: + History of anemia, easy bleeding/bruising LYMPHATICS: No enlarged nodes. No history of splenectomy. PSYCHIATRIC: + History of anxiety and depression. ENDOCRINOLOGIC: No reports of sweating, cold or heat intolerance. No polyuria or polydipsia. ALLERGIES: No history of asthma, hives, eczema or rhinitis. Vital Signs Vital Signs Vital Signs: 04/16/24 20:40 04/16/24 20:52 Temperature 98.2 F Temperature Source Oral Pulse Rate 100 Respiratory Rate 18 Respiratory Effort Normal Non-Labored Respiratory Depth Normal Respiratory Pattern Normal Blood Pressure 206/90 H Blood Pressure Mean 128 Pulse Ox 97 Oxygen Delivery Method Room Air Room Air Weight Weight: 160 lb 11.472 oz Body Mass Index (BMI) 25.9 Physical Exam Narrative Physical Examination: General: Awake, alert, oriented to self, place and recent events, is mildly hard of hearing, remains cooperative, seated upright in ED bed, right upper extremity and swath, notes pain is mildly improved 8 out of 10 in severity. Skin: Normal color, normal turgor, no icterus, no cyanosis except right upper extremity/side ecchymoses, abrasion, especially with recent fall with right upper extremity and swath/sling. HEENT: AT/NC, EOMI, PERRLA, MMM, no carotid bruits or JVD noted. Lungs: CTA bilaterally, moderate effort, mild decrease BL bases, no rales, ronchi or wheezing. Heart: Regular rate and rhythm; no gallop, rub audible, + SM. Abdomen: Soft, NTTP, ND, mildly hyperactive BS, no appreciated HSM. Extremities: No cyanosis, no clubbing, no marked peripheral edema, right upper extremity in swath and sling, able to feel touch to fingers and wiggle fingers. Neurological: Patient awake, alert, oriented as noted, cognitive function per son is baseline intact; pupils equally reactive to light and accommodation, cranial nerves grossly normal, moving extremities except right upper extremity beyond moving her fingers given fracture and sling and swath currently, strength moderately to severely globally decreased. Psychiatric: Affect appears mildly uncomfortable otherwise normal, no acute evidence of depressive or anxiety feelings but does have underlying history. Results Lab / Micro Data 04/16/24 23:35 04/16/24 23:35 Imaging Radiology Impression Brain CT 04/16/24 21:58 IMPRESSION: No acute intracranial abnormality. Reading Location: [place] [id number] Facial/Sinus 04/16/24 21:58 IMPRESSION: No acute facial bone fracture. One or more dose reduction techniques were used (e.g., Automated exposure control, adjustment of the mA and/or kV according to patient size, use of iterative reconstruction technique). Reading Location: [id number] Shoulder X-Ray 04/16/24 21:58 IMPRESSION: Acute, displaced right humeral neck fracture. 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, CAD s/p CABG, Hx Dilated aortic root s/p repair who presents to the [facility] on 04/16/24 with mechanical fall living at assisted living at [place] unfortunately slipping out of bed just prior to arrival as she was washing her feet and when she was attempted to wash her second foot she fell out of bed mainly onto her right side and right shoulder with no trauma to the head or loss of consciousness but did complain of notable discomfort to the right shoulder and inability to move her right upper extremity well noting the pain was worse with movement prompting ED evaluation be cautious. #1. Mechanical fall with a right acutely displaced humeral neck fracture with adult FTT, inability to safely return to assisted living especially given [id number], unable to care for self with need for skilled facility placement: Admit to medical surgical floor, will maintain sling and swath in place with nonweightbearing status to right upper extremity, will need follow-up outpatient with orthopedic surgery but no inpatient consult necessary as this is nonsurgical, will maintain on fall precautions, will have oral and IV pain regimen for breakthrough, pending CBC/BMP upon requested evaluation of patient's thus may consider other agents pending renal function, PT/OT/case management consult for discharge planning to skilled setting. #2. CAD: status post CABG (median sternotomy-[place], [place]), PDA status post repair (lateral thoracotomy-[place], [place]), continue aspirin, statin, labetalol, losartan home regimen. #3. Hx Ascending aortic aneurysm status post repair w/ aortic root dilatation: s/p repair 2008 (median sternotomy in [place]), most recent echocardiogram 04/03/2021 with EF 65%, LA mildly enlarged, trivial MVI, trivial TVI, moderate diffuse aortic valve thickening, mild focal AV calcification, mild KAYLA, mildly dilated aortic root with no evidence of any diastolic dysfunction. #4. Hx SSS/Tachy-Ivan Syndrome: Patient without permanent place maker placement per most recent records 03/07/2023 with cardiology, encourage continued follow-up as previously arranged. #5. Diabetes mellitus type II with chronic neuropathy: Hold oral home regimen, ADA diet, accu checks w/ ISS. #6. Chronic anemia, chart reported, unclear type: Most recently noted CBC from 04/13/2019 with hemoglobin 12.4, MCV 88 at that time, not on any chronic iron per current list but clarifying, will obtain admission CBC. #7. Hypertension: Continue home regimen including labetalol, losartan, PRN hydralazine. #8. Hyperlipidemia: Continue home statin therapy. #9. Hypothyroidism: We will continue patient home levothyroxine regimen. #10. Anxiety and depression: We will continue patient on citalopram and low-dose nightly trazodone cautiously especially given recent fall history. #11. GERD: Continue patient PPI. #12. LEKIN: Patient does not use CPAP. #13. DVT prophylaxis: SCDs, hold chemoprophylaxis given recent fracture until assure Hgb appropriate, may add in AM if stable. #14. CODE status: Patient LAW is her son who is present and living will is currently in place. Discussed CODE status at length including difference between FULL code, DNR-CCA and DNR-CC status. Following discussions about the differences in these status, requested DNR CC but amenable to interventions for her current presentation as long as it relates to comfort. Advanced Care Planning Face to Face Time: 16 minutes. Charges/Coding Visit Charges Inpatient E&M: 01540 Init Hosp L2 Procedures Hospitalists Procedures: 39266 Advncd Care Plan 30 Min
[2024-04-16 23:44] VITALS: BP 140/92; PULSE 88; RESP 18; TEMP 36.3; O2SAT 97
[2024-04-17 00:04] LABS: Anion Gap 10 (5-15); BUN 11 mg/dL (7-18); BUN/Creat Ratio 11.7 RATIO (10-20); Calcium,Total 8.7 mg/dL (8.5-10.1); Chloride 92 mmol/L (98-107); Creatinine, Serum 0.94 mg/dL (0.55-1.02); EST Glomerular Filtration Rate 59 mL/min (>60); Est Glom Filt Rate - Afr Amer 72 mL/min (>60); Estimated Creatinine Clearance 41.47 ml/min; Glucose 140 mg/dL (74-106); Sodium Level 128 mmol/L (136-145)
[2024-04-17] MEDS: Morphine 4 MG/ML Syringe IV (00:11)
[2024-04-17 00:21] LABS: Absolute Lymphocyte Count 1.09 X10^3/uL (0.83-4.51); Absolute Neutrophil Count 10.7 X10^3/uL (2.0-7.7); Basophil# 0.04 X10^3/uL; Basophil% 0.3 % (0-1); Eosinophil# 0.02 X10^3/uL; Eosinophils% 0.2 % (0-5); Hematocrit 31.1 % (37-47); Hemoglobin 10.2 g/dL (12.0-15.0); Lymphocyte # 1.09 X10^3/ul (0.83-4.51); Lymphocyte % 8.5 % (19-41); Mean Corp Hgb Conc 32.8 g/dL (32-36); Mean Corpuscular Hgb 28.7 pg (27.0-32.0); Mean Corpuscular Volume 87.6 fL (81-99); Monocyte# 0.87 X10^3/uL; Monocyte% 6.8 % (0-10); NRBC Flagged by Analyzer 0 % (0-5); Neutrophil # 10.65 X10^3/uL (2.7-7.7); Neutrophil % 83.2 % (47-70); Platelet Count 224 K/mm3 (150-450); RBC Distribution Width CV 15.2 % (11.6-14.6); RBC Distribution Width SD 49.2 fl (35.1-43.9); Red Blood Count 3.55 M/mm3 (4.2-5.4); White Blood Count 12.8 K/mm3 (4.4-11.0)
[2024-04-17 00:30] VITALS: BMI 24.5
[2024-04-17 00:33] VITALS: BP 126/62; PULSE 102; RESP 18; TEMP 36.6; O2SAT 96
[2024-04-17] MEDS: oxyCODONE 5 MG Tablet PO ×4 (01:06→21:02)
[2024-04-17] MEDS: Acetaminophen 325 MG Tablet 650 MG PO ×4 (01:06→21:03)
[2024-04-17 05:38] VITALS: BMI 24.5
[2024-04-17 06:24] VITALS: BP 165/79; PULSE 98; RESP 18; TEMP 36.5; O2SAT 97
[2024-04-17 06:36] VITALS: BP 165/79; PULSE 98
[2024-04-17] MEDS: hydrALAZINE 20 MG/ML Vial 10 MG IV (06:36)
[2024-04-17] MEDS: Insulin Lispro 100 UNIT/ML INSULN.PEN SC ×4 (06:37→21:16)
[2024-04-17] MEDS: Levothyroxine 25 MCG TABLET PO (06:37)
[2024-04-17 07:04] LABS: Bedside Glucose 188 mg/dL (74-106)
[2024-04-17] MEDS: Morphine 2 MG/ML Syringe IV ×3 (07:48→16:44)
--- NOTE | 2024-04-17 08:59 | CASEMGMT ---
Per Katharine @ [facility], pt is receiving AL services. SW updated. Zoila Escobar DC Planning Asst.
[2024-04-17 10:12] LABS: Absolute Lymphocyte Count 0.64 X10^3/uL (0.83-4.51); Absolute Neutrophil Count 8.3 X10^3/uL (2.0-7.7); Basophil# 0.03 X10^3/uL; Basophil% 0.3 % (0-1); Hematocrit 32.3 % (37-47); Hemoglobin 10.3 g/dL (12.0-15.0); Lymphocyte # 0.64 X10^3/ul (0.83-4.51); Lymphocyte % 6.6 % (19-41); Mean Corp Hgb Conc 31.9 g/dL (32-36); Mean Corpuscular Hgb 28.5 pg (27.0-32.0); Mean Corpuscular Volume 89.2 fL (81-99); Mean Platelet Vol. 9.2 fl (6.2-12.0); Monocyte# 0.61 X10^3/uL; Monocyte% 6.3 % (0-10); NRBC Flagged by Analyzer 0 % (0-5); Neutrophil # 8.33 X10^3/uL (2.7-7.7); Neutrophil % 86.1 % (47-70); Platelet Count 248 K/mm3 (150-450); RBC Distribution Width CV 15.4 % (11.6-14.6); RBC Distribution Width SD 50.3 fl (35.1-43.9); Red Blood Count 3.62 M/mm3 (4.2-5.4); White Blood Count 9.7 K/mm3 (4.4-11.0)
[2024-04-17] MEDS: Aspirin 81 MG TAB.CHEW PO (10:24)
[2024-04-17] MEDS: Citalopram 20 MG Tablet PO (10:27)
[2024-04-17] MEDS: Losartan Potassium 25 MG Tablet PO (10:27)
[2024-04-17] MEDS: Pantoprazole Sodium 40 MG Tablet PO ×2 (10:28→21:04)
[2024-04-17 10:48] VITALS: BP 101/61; PULSE 107; RESP 18; TEMP 36.8; O2SAT 97
[2024-04-17 10:49] LABS: ALB/GLOB Ratio 0.8 RATIO (0.9-2.4); AST(SGOT) 11 U/L (15-37); Alanine Aminotransfer ALT/SGPT 7 U/L (13-56); Alkaline Phosphatase 66 U/L (45-117); Anion Gap 11 (5-15); BUN 13 mg/dL (7-18); BUN/Creat Ratio 11.1 RATIO (10-20); Calcium,Total 8.8 mg/dL (8.5-10.1); Chloride 91 mmol/L (98-107); Creatinine, Serum 1.17 mg/dL (0.55-1.02); EST Glomerular Filtration Rate 46 mL/min (>60); Est Glom Filt Rate - Afr Amer 56 mL/min (>60); Estimated Creatinine Clearance 30.52 ml/min; Globulin 3.9 g/dL (2.2-4.2); Glucose 204 mg/dL (74-106); Potassium 4.1 mmol/L (3.5-5.1); Protein, Total 6.9 g/dL (6.4-8.2); Sodium Level 127 mmol/L (136-145)
[2024-04-17] MEDS: Magnesium Chloride 64 MG Delay Rel.Tablet 128 MG PO ×2 (11:47→21:03)
[2024-04-17] MEDS: 0.9% Saline Lock 10 ML Syringe IV ×2 (11:50→16:47)
[2024-04-17 12:13] LABS: Bedside Glucose 190 mg/dL (74-106)
--- NOTE | 2024-04-17 12:13 | CASEMGMT ---
Addendum entered by Zoila Escobar 04/17/24 13:59: [facility] has accepted. SW updated. Zoila Escobar DC Planning Asst. Original Note: Referral sent to [facility]. Zoila Escobar DC Planning Asst.
--- NOTE | 2024-04-17 12:27 | CASEMGMT ---
Social Work- SW met with pt son who reports that pt is not able to return to [facility] due to level of assistance needed at this time. A list of SNF providers including quality and resource use data and consistent with the patient?s preferred geographic region, medical needs, and insurance network were provided from the [employer] Guide. Pt spouse selected [facility] as F[facility]. SW notified DCA of referral request. Plan: [facility]; pend acceptance MARTITA Brandon
--- NOTE | 2024-04-17 12:34 | CASEMGMT ---
Social Work- Pt is from [facility] and son reports no concerns and denies any issues. SDOH reported to be in error. MARTITA Brandon
--- NOTE | 2024-04-17 13:13 | PCM.PN.HOSP ---
Reason for Visit Reason for Visit: Diagnoses Unspecified fracture of upper end of right humerus, initial encounter for closed fracture (04/16/24) Fall from bed, initial encounter (04/16/24) Subjective Subjective Saw patient at bedside this morning, son present. Patient was sitting up in bedside chair and appeared comfortable at rest. She does appear mildly fatigued. States that she continues to have pain in the right arm today that is only somewhat improved with pain medication. She had just worked with physical therapy and this was difficult for her given her inability to use her right arm. She denied any other new concerns this morning. Objective Data Objective Data Vital Signs: Vital Signs Temp Pulse Resp BP Pulse Ox O2 Del Method 98.2 F 107 H 18 101/61 97 Room Air 04/17/24 10:48 04/17/24 10:48 04/17/24 10:48 04/17/24 10:48 04/17/24 10:48 04/17/24 11:57 Oxygen Delivery Method Room Air Weight: 69.2 kg Body Mass Index (BMI) 24.5 Intake & Output: Intake and Output for Last 24 Hours 04/15/24 04/16/24 04/17/24 23:59 23:59 23:59 Intake Total 440 / 440 Balance 440 / 440 Lab / Micro Data 04/17/24 09:45 04/17/24 09:45 Labs: Laboratory Results - last 24 hr 04/16/24 23:35: WBC 12.8 H, RBC 3.55 L, Hgb 10.2 L, Hct 31.1 L, MCV 87.6, MCH 28.7, MCHC 32.8, RDW Std Deviation 49.2 H, RDW Coeff of Migdalia 15.2 H, Plt Count 224, MPV 9.0, Immature Gran % (Auto) 1.000 H, Neut % (Auto) 83.2 H, Lymph % (Auto) 8.5 L, [place]on % (Auto) 6.8, Eos % (Auto) 0.2, Baso % (Auto) 0.3, Absolute Neuts (auto) 10.7 H, Absolute Lymphs (auto) 1.09, Nucleated RBC % 0, Sodium 128 L, Potassium 4.0, Chloride 92 L, Carbon Dioxide 26.0, Anion Gap 10, BUN 11, Creatinine 0.94, Estim Creat Clear Calc 41.47, Est GFR (MDRD) Af Amer 72, Est GFR (MDRD) Non-Af 59 L, BUN/Creatinine Ratio 11.7, Glucose 140 H, Calcium 8.7 04/17/24 06:31: POC Glucose 188 H 04/17/24 09:45: WBC 9.7, RBC 3.62 L, Hgb 10.3 L, Hct 32.3 L, MCV 89.2, MCH 28.5, MCHC 31.9 L, RDW Std Deviation 50.3 H, RDW Coeff of Migdalia 15.4 H, Plt Count 248, MPV 9.2, Immature Gran % (Auto) 0.700, Neut % (Auto) 86.1 H, Lymph % (Auto) 6.6 L, [place]on % (Auto) 6.3, Eos % (Auto) 0.0, Baso % (Auto) 0.3, Absolute Neuts (auto) 8.3 H, Absolute Lymphs (auto) 0.64 L, Nucleated RBC % 0, Sodium 127 L, Potassium 4.1, Chloride 91 L, Carbon Dioxide 25.0, Anion Gap 11, BUN 13, Creatinine 1.17 H, Estim Creat Clear Calc 30.52, Est GFR (MDRD) Af Amer 56 L, Est GFR (MDRD) Non-Af 46 L, BUN/Creatinine Ratio 11.1, Glucose 204 H, Calcium 8.8, Total Bilirubin 0.60, AST 11 L, ALT 7 L, Alkaline Phosphatase 66, Total Protein 6.9, Albumin 3.0 L, Globulin 3.9, Albumin/Globulin Ratio 0.8 L 04/17/24 11:49: POC Glucose 190 H Radiography Diagnostic Testing: Radiology Impression Brain CT 04/16/24 21:58 IMPRESSION: No acute intracranial abnormality. Reading Location: [id number] Facial/Sinus 04/16/24 21:58 IMPRESSION: No acute facial bone fracture. One or more dose reduction techniques were used (e.g., Automated exposure control, adjustment of the mA and/or kV according to patient size, use of iterative reconstruction technique). Reading Location: [place] [id number] Shoulder X-Ray 04/16/24 21:58 IMPRESSION: Acute, displaced right humeral neck fracture. Reading Location: [place] [id number] Physical Exam Const alert, oriented x3, no apparent distress and average body habitus Constitutional Narrative: Elderly female, mentally sharp for her age, mildly fatigued appearing but otherwise sitting up in bedside chair fairly comfortably, conversing normally and in no acute distress. General Appearance: cooperative and comfortable HEENT normocephalic, head/scalp atraumatic, hearing grossly normal bilaterally, nasal mucous membranes and turbinates normal and moist oral mucous membranes Eyes PERRL, EOMs intact bilaterally and conjunctivae normal Neck full ROM Chest inspection of chest normal Resp normal respiratory effort, normal air movement, no use of accessory muscles and clear to auscultation bilaterally Cardio regular rate, regular rhythm, no murmurs and peripheral pulses 2+ throughout GI normal to inspection, nondistended, normoactive bowel sounds, soft to palpation, non-tender and non-distended Back/Spine normal ROM Extremity Extremity Narrative: Right arm stable in sling. Skin no rashes or lesions noted Neuro Speech: speech normal Psych mental status grossly normal Assessment & Plan Assessment/Plan (1) Closed fracture of proximal end of right humerus: PLAN: Plan Patient is an 89-year-old female who presented [facility] ED on 04/16/2024 with right arm pain after a fall. 1. Acute on chronic debility secondary to right humerus fracture after mechanical fall ? PT/OT/case management following. Patient lives in assisted living at [place]. Had a fall on the day of admission with subsequent right arm pain. Right shoulder x-ray showed acute displaced right humeral neck fracture. Per orthopedics, no need for surgical intervention, okay for conservative management with placement in sling. Patient with poor therapy scores, planning for SNF on discharge. Pain control with scheduled Tylenol and oxycodone as needed. Chronic medical conditions: ? CAD s/p CABG, hypertension, hyperlipidemia: Continue home statin, losartan, nebivolol. ? Type 2 diabetes mellitus: Continue Accu-Cheks and sliding scale insulin with meals while inpatient. ? Mild chronic anemia: Hemoglobin stable around baseline 10-11. ? Anxiety/depression: Stable. Continue home citalopram. ? GERD: Continue home PPI. ? History of sick sinus syndrome/tachybradycardia syndrome: Has not had pacemaker placed, continue close outpatient follow-up with cardiology. ? History of ascending aortic aneurysm s/p repair DVT prophylaxis: Lovenox CODE STATUS: DNR CC Expected disposition: SNF, medically ready on 04/17, awaiting placement Charges/Coding Visit Charges Inpatient E&M: 29928 Subs Hosp L2
--- NOTE | 2024-04-17 13:40 | CASEMGMT ---
Social Work- DAMIEN received notification that [facility] accept referral. DAMIEN called pt son to update. Green sheet on the chart for Saturday. Final discharge arrangements and notification to family to be made by nursing. Plan: MARTITA Hamm
--- NOTE | 2024-04-17 14:12 | CASEMGMT ---
[facility] updated that pt will likely be medically ready on Saturday. Unit phone number given to call with bed availability. Green sheet instructions include that pt cannot dc until notification has been received by [facility] and that they will provide phone/fax for report. SW updated. Zoila Escobar DC Planning Asst.
--- NOTE | 2024-04-17 14:40 | CASEMGMT ---
Discharge Planning Katharine Sandoval updated that pt will have skilled snf stay before returning to [place]. Zoila Escobar DC Planning Asst.
--- NOTE | 2024-04-17 16:06 | CHAPLAIN ---
Type of Pastoral Visit _x__ Initial Visit ___ Follow-up Visit ___ On-call Visit ___ General Patient Visit ___ Spiritual Assessment ___ Family Conference ___ Bereavement ___ Rapid Response ___ Code Blue ___ Other (describe below) Pastoral Care Referral From _x__ Patient ___ Family ___ Nurse ___ Physician ___ Leasing Agent ___ Sap Abap Developer ___ Other (describe below) Sacrament/Intervention _x__ Active listening ___ Anointing ___ Mandaen ___ Bereavement ___ Communion ___ [place] exploration ___ _x__ Life review ___ Prayer ___ Reconciliation ___ Sacrament of Sick _x__ Supportive presence ___ Wedding ___ Other (describe below) Pastoral Comments patient welcomes this advanced manufacturing engineer and she explains the pain and discouragement she has since her fall; pt is asked questions about her needs, worries, and coping system; pt has some family in the area that is helpful but some are far away; pt cannot come up with ideas for better support or how to cope with the exception that I like to watch TV; helped this patient find the program and channel on the TV that she would enjoy;
[2024-04-17] MEDS: Menthol/Lanolin/Calamine/Znox 113 GM Tube 1 APPLIC TOPICAL ×2 (16:41→21:04)
[2024-04-17 17:09] VITALS: BP 103/58; PULSE 75; RESP 14; TEMP 36.9; O2SAT 98
--- NOTE | 2024-04-17 17:21 | CASEMGMT ---
Social Work- Discharge to [facility], under skilled level of care. Pt cannot admit before Saturday.?In case of possible weekend discharge, green sheet and transport form on chart for nursing to follow for final discharge arrangements/notifications to SNF, patient/family.? Plan: [facility]; skilled level of care MARTITA Brandon
[2024-04-17 18:32] LABS: Bedside Glucose 194 mg/dL (74-106)
[2024-04-17] MEDS: traZODone 50 MG Tablet PO (21:03)
[2024-04-17] MEDS: Atorvastatin Calcium 20 MG Tablet PO (21:03)
[2024-04-17 21:06] VITALS: BP 139/56; PULSE 93; RESP 16; TEMP 36.6; O2SAT 98
[2024-04-17 22:03] LABS: Bedside Glucose 161 mg/dL (74-106)
[2024-04-18 03:24] VITALS: BP 134/67; PULSE 89; RESP 16; TEMP 36.4; O2SAT 96
[2024-04-18] MEDS: Acetaminophen 325 MG Tablet 650 MG PO ×2 (03:34→17:15)
[2024-04-18] MEDS: oxyCODONE 5 MG Tablet PO ×4 (03:34→18:38)
[2024-04-18 06:00] VITALS: BMI 24.5
[2024-04-18] MEDS: Levothyroxine 25 MCG TABLET PO (06:34)
[2024-04-18 07:22] LABS: Bedside Glucose 133 mg/dL (74-106)
[2024-04-18] MEDS: 0.9% Normal Saline (1000mL) 1,000 ML 500 ML IV (07:42)
[2024-04-18 07:50] VITALS: BP 170/89; PULSE 92; RESP 18; TEMP 36.4; O2SAT 95
[2024-04-18] MEDS: Enoxaparin 30 MG/0.3 ML Syringe SC (07:52)
[2024-04-18] MEDS: Magnesium Chloride 64 MG Delay Rel.Tablet 128 MG PO ×2 (07:52→19:48)
[2024-04-18] MEDS: Menthol/Lanolin/Calamine/Znox 113 GM Tube 1 APPLIC TOPICAL ×2 (07:52→11:58)
[2024-04-18] MEDS: 0.9% Saline Lock 10 ML Syringe IV (07:53)
[2024-04-18] MEDS: Pantoprazole Sodium 40 MG Tablet PO ×2 (07:53→19:48)
[2024-04-18] MEDS: Aspirin 81 MG TAB.CHEW PO (07:53)
[2024-04-18] MEDS: Citalopram 20 MG Tablet PO (07:53)
[2024-04-18] MEDS: Losartan Potassium 25 MG Tablet PO (07:54)
[2024-04-18 08:13] LABS: Anion Gap 12 (5-15); BUN 20 mg/dL (7-18); BUN/Creat Ratio 19.8 RATIO (10-20); Calcium,Total 8.4 mg/dL (8.5-10.1); Chloride 93 mmol/L (98-107); Creatinine, Serum 1.01 mg/dL (0.55-1.02); EST Glomerular Filtration Rate 55 mL/min (>60); Est Glom Filt Rate - Afr Amer 66 mL/min (>60); Estimated Creatinine Clearance 35.35 ml/min; Glucose 134 mg/dL (74-106); Potassium 4.4 mmol/L (3.5-5.1); Sodium Level 129 mmol/L (136-145)
--- NOTE | 2024-04-18 09:57 | PN.HOSP_ITS ---
Reason for Visit Reason for Visit: Diagnoses Unspecified fracture of upper end of right humerus, initial encounter for closed fracture (04/16/24) Fall from bed, initial encounter (04/16/24) Subjective Subjective Saw patient at bedside this morning, son present. Patient had slightly improved energy level this morning and stated her right arm pain was better controlled today than yesterday. She denied any new concerns this morning. Objective Data Objective Data Vital Signs: Vital Signs Temp Pulse Resp BP Pulse Ox O2 Del Method 97.5 F L 92 18 170/89 H 95 Room Air 04/18/24 07:50 04/18/24 07:50 04/18/24 07:50 04/18/24 07:50 04/18/24 07:50 04/18/24 09:33 Oxygen Delivery Method Room Air Weight: 69.3 kg Body Mass Index (BMI) 24.5 Intake & Output: Intake and Output for Last 24 Hours 04/16/24 04/17/24 04/18/24 23:59 23:59 23:59 Intake Total 440 / 590 150 / 150 Balance 440 / 590 150 / 150 Lab / Micro Data 04/17/24 09:45 04/18/24 07:30 Labs: Laboratory Results - last 24 hr 04/17/24 09:45: WBC 9.7, RBC 3.62 L, Hgb 10.3 L, Hct 32.3 L, MCV 89.2, MCH 28.5, MCHC 31.9 L, RDW Std Deviation 50.3 H, RDW Coeff of Migd[place] 15.4 H, Plt Count 248, MPV 9.2, Immature Gran % (Auto) 0.700, Neut % (Auto) 86.1 H, Lymph % (Auto) 6.6 L, [place] % (Auto) 6.3, Eos % (Auto) 0.0, Baso % (Auto) 0.3, Absolute Neuts (auto) 8.3 H, Absolute Lymphs (auto) 0.64 L, Nucleated RBC % 0, Sodium 127 L, Potassium 4.1, Chloride 91 L, Carbon Dioxide 25.0, Anion Gap 11, BUN 13, Creatinine 1.17 H , Estim Creat Clear Calc 30.52, Est GFR (MDRD) Af Amer 56 L, Est GFR (MDRD) Non- Af 46 L, BUN/Creatinine Ratio 11.1, Glucose 204 H, Calcium 8.8, Total Bilirubin 0.60, AST 11 L, ALT 7 L, Alkaline Phosphatase 66, Total Protein 6.9, Albumin 3.0 L, Globulin 3.9, Albumin/Globulin Ratio 0.8 L 04/17/24 11:49: POC Glucose 190 H 04/17/24 16:53: POC Glucose 194 H 04/17/24 21:15: POC Glucose 161 H 04/18/24 06:35: POC Glucose 133 H 04/18/24 07:30: Sodium 129 L, Potassium 4.4, Chloride 93 L, Carbon Dioxide 24.0, Anion Gap 12, BUN 20 H, Creatinine 1.01, Estim Creat Clear Calc 35.35, Est GFR (MDRD) Af Amer 66, Est GFR (MDRD) Non-Af 55 L, BUN/Creatinine Ratio 19.8, G lucose 134 H, Calcium 8.4 L Physical Exam Const alert, oriented x3, no apparent distress and average body habitus Constitutional Narrative: Elderly female, mentally sharp for her age, mildly fatigued appearing but energy improved from yesterday, otherwise sitting up in bedside chair fairly comfortably, conversing normally and in no acute distress. General Appearance: cooperative and comfortable HEENT normocephalic, head/scalp atraumatic, hearing grossly normal bilaterally, nasal mucous membranes and turbinates normal and moist oral mucous membranes Eyes PERRL, EOMs intact bilaterally and conjunctivae normal Neck full ROM Chest inspection of chest normal Resp normal respiratory effort, normal air movement, no use of accessory muscles and clear to auscultation bilaterally Cardio regular rate, regular rhythm, no murmurs and peripheral pulses 2+ throughout GI normal to inspection, nondistended, normoactive bowel sounds, soft to palpation, non-tender and non-distended Back/Spine normal ROM Extremity Extremity Narrative: Right arm stable in sling. Skin no rashes or lesions noted Neuro Speech: speech normal Psych mental status grossly normal Assessment & Plan Assessment/Plan (1) Closed fracture of proximal end of right humerus: PLAN: Plan Patient is an 89-year-old female who presented [facility] ED on 04/16/2024 with right arm pain after a fall. 1. Acute on chronic debility secondary to right humerus fracture after mechanical fall ? PT/OT/case management following. Patient lives in assisted living at [place]. Had a fall on the day of admission with subsequent right arm pain. Right shoulder x-ray showed acute displaced right humeral neck fracture. Per orthopedics, no need for surgical intervention, okay for conservative management with placement in sling. Pain control with scheduled Tylenol and oxycodone as needed. Planning for [facility] on discharge but will need 3 midnight stay. Medically for discharge on 04/18, anticipate discharge on 04/19. 2. Hyponatremia ? Sodium 128 on admit, chloride 92. No previous labs for comparison. Sodium has remained stable but patient had slight creatinine bump. Given 1 L of IV fluids on 04/18, will recheck BMP on 04/19 to ensure improvement. No mental status changes noted. Chronic medical conditions: ? CAD s/p CABG, hypertension, hyperlipidemia: Continue home statin, losartan, nebivolol. ? Type 2 diabetes mellitus: Continue Accu-Cheks and sliding scale insulin with meals while inpatient. ? Mild chronic anemia: Hemoglobin stable around baseline 10-11. ? Anxiety/depression: Stable. Continue home citalopram. ? GERD: Continue home PPI. ? History of sick sinus syndrome/tachybradycardia syndrome: Has not had pacemaker placed, continue close outpatient follow-up with cardiology. ? History of ascending aortic aneurysm s/p repair DVT prophylaxis: Lovenox CODE STATUS: DNR CC Expected disposition: SNF, medically ready on 04/18, awaiting placement Charges/Coding Visit Charges Inpatient E&M: 18894 Subs Hosp L2
[2024-04-18 14:00] VITALS: BP 162/73; PULSE 89; RESP 17; TEMP 36.4; O2SAT 100
[2024-04-18 14:48] LABS: Bedside Glucose 141 mg/dL (74-106)
--- NOTE | 2024-04-18 14:57 | NURSING ---
No void for this shift. Bladder scanned for 418cc. Order to st cath greater then 500cc per Dr. Bautista. Sent a text to Dr. Luo to see if we could st. cath. Pt up to BSC at this time attempting to void and have a Bowel Movement.
--- NOTE | 2024-04-18 15:57 | NURSING ---
Pt did not have to be st. cath'ed as we got her up to the [facility] and she was able to void 300cc.
[2024-04-18 17:50] LABS: Bedside Glucose 128 mg/dL (74-106)
[2024-04-18 19:44] VITALS: BP 136/78; PULSE 89; RESP 16; TEMP 36.4; O2SAT 97
[2024-04-18] MEDS: Morphine 2 MG/ML Syringe IV (19:44)
[2024-04-18] MEDS: Atorvastatin Calcium 20 MG Tablet PO (19:48)
[2024-04-18] MEDS: Senna/Docusate Sodium 1 Tablet 2 TABLET PO (19:49)
[2024-04-18] MEDS: traZODone 50 MG Tablet PO (19:49)
[2024-04-18 23:50] VITALS: BP 158/76; PULSE 87; RESP 16; TEMP 36.4; O2SAT 95
[2024-04-19 00:39] LABS: Bedside Glucose 118 mg/dL (74-106)
[2024-04-19 01:17] VITALS: BMI 25.4
[2024-04-19 05:20] VITALS: BP 150/67; PULSE 67; RESP 16; TEMP 36.6; O2SAT 96
[2024-04-19] MEDS: Levothyroxine 25 MCG TABLET PO (05:23)
[2024-04-19] MEDS: oxyCODONE 5 MG Tablet PO (05:26)
[2024-04-19] MEDS: Acetaminophen 325 MG Tablet 650 MG PO (05:26)
[2024-04-19 06:52] LABS: Hematocrit 27.6 % (37-47); Hemoglobin 8.8 g/dL (12.0-15.0); Mean Corp Hgb Conc 31.9 g/dL (32-36); Mean Corpuscular Hgb 28.9 pg (27.0-32.0); Mean Corpuscular Volume 90.8 fL (81-99); Mean Platelet Vol. 9.2 fl (6.2-12.0); Platelet Count 187 K/mm3 (150-450); RBC Distribution Width CV 15.6 % (11.6-14.6); RBC Distribution Width SD 51.6 fl (35.1-43.9); Red Blood Count 3.04 M/mm3 (4.2-5.4); White Blood Count 7.3 K/mm3 (4.4-11.0)
[2024-04-19 07:01] LABS: Bedside Glucose 144 mg/dL (74-106)
[2024-04-19] MEDS: Morphine 2 MG/ML Syringe IV ×2 (07:10→10:06)
[2024-04-19 07:20] LABS: Anion Gap 7 (5-15); BUN 17 mg/dL (7-18); BUN/Creat Ratio 21.3 RATIO (10-20); Calcium,Total 8.8 mg/dL (8.5-10.1); Chloride 96 mmol/L (98-107); EST Glomerular Filtration Rate 72 mL/min (>60); Est Glom Filt Rate - Afr Amer 87 mL/min (>60); Estimated Creatinine Clearance 48.42 ml/min; Glucose 129 mg/dL (74-106); Sodium Level 128 mmol/L (136-145)
[2024-04-19 09:35] VITALS: BP 138/64; PULSE 91; RESP 16; TEMP 36.4; O2SAT 98
[2024-04-19] MEDS: Citalopram 20 MG Tablet PO (09:40)
[2024-04-19] MEDS: Menthol/Lanolin/Calamine/Znox 113 GM Tube 1 APPLIC TOPICAL (09:40)
[2024-04-19] MEDS: Senna/Docusate Sodium 1 Tablet 2 TABLET PO (09:40)
[2024-04-19] MEDS: Pantoprazole Sodium 40 MG Tablet PO (09:40)
[2024-04-19] MEDS: Magnesium Chloride 64 MG Delay Rel.Tablet 128 MG PO (09:40)
[2024-04-19] MEDS: Losartan Potassium 25 MG Tablet PO (09:40)
[2024-04-19] MEDS: Enoxaparin 30 MG/0.3 ML Syringe SC (09:41)
[2024-04-19] MEDS: Aspirin 81 MG TAB.CHEW PO (09:41)
--- NOTE | 2024-04-19 09:42 | DS.PCM_ITS ---
Providers Date of Admission: 04/16/24 Date of Discharge: 04/19/24 Primary Care Physician: Dr. Shaquille Thacker MD Reason For Visit: FALL, RUE HUMERAL NECK FRACTURE, ADULT FTT Diagnosis Discharge Diagnosis (1) Closed fracture of proximal end of right humerus: Status: Acute Code(s): S42.201A - Unspecified fracture of upper end of right humerus, initial encounter for closed fracture Medications at Discharge Home Medications losartan 25 mg tablet 25 mg PO DAILY bp 10/08/18 trazodone 50 mg tablet 50 mg PO QHS mood 10/08/18 levothyroxine 25 mcg tablet 25 mcg PO DAILY thyroid 11/20/19 citalopram 20 mg tablet 20 mg PO DAILY depression 09/28/21 metformin 500 mg tablet 500 mg PO BID 03/07/23 nebivolol 5 mg tablet 5 mg PO DAILY htn 02/24/24 atorvastatin 20 mg tablet 20 mg PO QHS hld 04/16/24 lidocaine 4 % topical patch (Lidocare) 1 patch topical DAILY PRN pain 04/16/24 loperamide 2 mg capsule (Anti-Diarrheal (loperamide)) 2 mg PO TID PRN loose stool 04/16/24 magnesium hydroxide 400 mg/5 mL oral suspension (Dulcolax (magnesium hydroxide)) 30 ml PO DAILY PRN constipation 04/16/24 magnesium oxide 400 mg PO BID supplement 04/16/24 pantoprazole 20 mg tablet,delayed release 20 mg PO BID gerd 04/16/24 acetaminophen 325 mg tablet 1,000 mg (3.0769 x 325 mg) PO Q8 30 days #0 tabs 04/19/24 oxycodone 5 mg tablet 5 mg PO Q4H PRN PRN Pain Score 4-10 5 days #0 tabs 04/19/24 sennosides 8.6 mg-docusate sodium 50 mg tablet (Stimulant Laxative Plus) 2 tab PO BID #0 tabs 04/19/24 Hospital Course Operations None Procedures - (CT brain, CT facial/sinus, shoulder x-ray) Summary of Care Provided Minutes Spent on Discharge: 35 Hospital Course: Patient is an 89-year-old female who presented [facility] ED on 04/16/2024 with right arm pain after a fall. Short hospital course as noted below. Discharged to SNF in stable condition on 04/19. 1. Acute on chronic debility secondary to right humerus fracture after mechanical fall ? PT/OT/case management followed. Patient lives in assisted living at [place]. Had a fall on the day of admission with subsequent right arm pain. Right shoulder x-ray showed acute displaced right humeral neck fracture. Per orthopedics, no need for surgical intervention, okay for conservative management with placement in sling. Pain control with scheduled Tylenol and oxycodone as needed. Medically stable for discharge on 04/18, [facility]. 2. Hyponatremia, stable ? Sodium 128 on admit, chloride 92. No previous labs for comparison. Sodium remained stable 127-129 during hospitalization despite IV fluid resuscitation, suspect this is her baseline. No mental status changes noted. Chronic medical conditions: ? CAD s/p CABG, hypertension, hyperlipidemia: Continue home statin, losartan, nebivolol. ? Type 2 diabetes mellitus: Continue Accu-Cheks and sliding scale insulin with meals while inpatient, okay to resume home metformin on discharge. ? Mild chronic anemia: Hemoglobin stable around baseline 9-10 during hospitalization. ? Anxiety/depression: Stable. Continue home citalopram. ? GERD: Continue home PPI. ? History of sick sinus syndrome/tachybradycardia syndrome: Has not had pacemaker placed, continue close outpatient follow-up with cardiology. ? History of ascending aortic aneurysm s/p repair Total clinical time spent by myself addressing the patient's medical issues, reviewing all the data, and collaborating with patient's care team: 35 minutes. Physical Exam Const alert, oriented x3, no apparent distress and average body habitus Constitutional Narrative: Elderly female, mentally sharp for her age, mildly fatigued appearing but energy improved from admission, otherwise sitting up in bedside chair fairly comfortably, conversing normally and in no acute distress. Stable. General Appearance: cooperative and comfortable HEENT normocephalic, head/scalp atraumatic, hearing grossly normal bilaterally, nasal mucous membranes and turbinates normal and moist oral mucous membranes Eyes PERRL, EOMs intact bilaterally and conjunctivae normal Neck full ROM Chest inspection of chest normal Resp normal respiratory effort, normal air movement, no use of accessory muscles and clear to auscultation bilaterally Cardio regular rate, regular rhythm, no murmurs and peripheral pulses 2+ throughout GI normal to inspection, nondistended, normoactive bowel sounds, soft to palpation, non-tender and non-distended Back/Spine normal ROM Extremity Extremity Narrative: Right arm stable in sling. Skin no rashes or lesions noted Neuro Speech: speech normal Psych mental status grossly normal Weight / BMI Weight Weight: 71.9 kg Body Mass Index (BMI) 25.4 ABG / Lab / Microbiology Data 04/19/24 05:58 04/19/24 05:58 Laboratory: Laboratory Results - last 24 hr 04/18/24 12:00: POC Glucose 141 H 04/18/24 17:08: POC Glucose 128 H 04/19/24 00:00: POC Glucose 118 H 04/19/24 05:58: WBC 7.3, RBC 3.04 L, Hgb 8.8 L, Hct 27.6 L, MCV 90.8, MCH 28.9, MCHC 31.9 L, RDW Std Deviation 51.6 H, RDW Coeff of [place] 15.6 H, Plt Count 187, MPV 9.2, Sodium 128 L, Potassium 4.0, Chloride 96 L, Carbon Dioxide 25.0, Anion Gap 7, BUN 17, Creatinine 0.80, Estim Creat Clear Calc 48.42, Est GFR (MDRD) Af Amer 87, Est GFR (MDRD) Non-Af 72, BUN/Creatinine Ratio 21.3 H, Glucose 129 H, Calcium 8.8 04/19/24 06:12: POC Glucose 144 H D/C Instructions DC O2, CPAP, BIPAP Needs Home O2 Discharge instructions: No Meaningful Use Info Meaningful Use Meaningful Use Diagnoses (Choose all that apply): None applicable Ischemic Stroke Statin Dosing Therapy Reference: STATIN DOSE THERAPY REFERENCE: * Patients > 75 years receive moderate or high dose statin therapy. * Patients 75 years or YOUNGER should receive HIGH intensity statin dose unless contraindicated. You will be required to document reason for non-treatment if statin daily dose does not meet guidelines. HIGH DOSE STATIN THERAPY DAILY Atorvastatin > than or = to 40 mg Rosuvastatin > than or = to 20 mg Amlodipine + Atorvastatin > than or = to 2.5/40 mg Ezetimibe + Simvastatin 10/80 mg Simvastatin 80mg Discharge Plan Admission Admit Date/Time: 04/16/24 23:42 Primary Reason for Your Visit: fall with right arm pain Attending Provider: Simon Mcfarland Primary Care Provider: Shaquille Thacker Consulting Providers: Nichole Bautista Discharge Orders/Prescriptions Prescriptions: New acetaminophen 325 mg Tablet 1,000 mg PO Q8 30 Days Qty: 0 0RF sennosides-docusate sodium [Stimulant Laxative Plus] 8.6-50 mg Tablet 2 tab PO BID Qty: 0 0RF oxycodone 5 mg Tablet 5 mg PO Q4H PRN PRN (Reason: Pain Score 4-10) 5 Days Qty: 0 0RF Continued losartan 25 mg tablet 25 mg PO DAILY trazodone 50 mg tablet 50 mg PO QHS metformin 500 mg tablet 500 mg PO BID Rx Instructions: metformin xl 500mg daily levothyroxine 25 mcg tablet 25 mcg PO DAILY citalopram 20 mg tablet 20 mg PO DAILY loperamide [Anti-Diarrheal (loperamide)] 2 mg capsule 2 mg PO TID PRN (Reason: loose stool) magnesium oxide 400 mg magnesium capsule 400 mg PO BID magnesium hydroxide [Dulcolax (magnesium hydroxide)] 400 mg/5 mL suspension 30 ml PO DAILY PRN (Reason: constipation) pantoprazole 20 mg tablet,delayed release (DR/EC) 20 mg PO BID lidocaine [Lidocare] 4 % adhesive patch,medicated 1 patch topical DAILY PRN (Reason: pain) atorvastatin 20 mg tablet 20 mg PO QHS nebivolol 5 mg tablet 5 mg PO DAILY Discontinued hydrocodone-acetaminophen [[place]] 7.5-325 mg tablet 1 tab PO Q8H PRN (Reason: Pain) loperamide [Anti-Diarrheal (loperamide)] 2 mg capsule 4 mg PO PRN PRN (Reason: loose stool) acetaminophen 325 mg capsule 325 mg PO Q4H PRN (Reason: fever or pain) Referrals / Follow Up: Shaquille Thacker MD [Primary Care Provider] - Disposition Disposition (needs filled in before D/C Order can be placed): [facility] Facility Charges/Coding Visit Charges Inpatient E&M: 59135 Disch Hosp >30min
--- NOTE | 2024-04-19 09:42 | PCM.TXEXTCAR ---
Diet Diet Order/Speech Therapy: 04/17/24 00:20 Diet: Cardiac: Calorie-Controlled Food consistency:: Regular Liquid Consistency:: Regular/Thin How many daily calories?: 1800 calorie Routine Orders/Code Status Code Status: DNRCC DC O2, CPAP, BIPAP needs Home O2 Discharge instructions: No Wound(s) right buttocks: Wound Type: Abrasion right cheek: Wound Type: Abrasion Therapies Weight Bearing: Full weight bearing Physical Therapy: Eval and Treat Occupational Therapy: Eval and Treat Problem/Diagnosis (1) Closed fracture of proximal end of right humerus: Status: Acute Code(s): S42.201A - Unspecified fracture of upper end of right humerus, initial encounter for closed fracture Plan Patient is an 89-year-old female who presented [facility] ED on 04/16/2024 with right arm pain after a fall. Short hospital course as noted below. Discharged to SNF in stable condition on 04/19. 1. Acute on chronic debility secondary to right humerus fracture after mechanical fall ? PT/OT/case management followed. Patient lives in assisted living at [place]. Had a fall on the day of admission with subsequent right arm pain. Right shoulder x-ray showed acute displaced right humeral neck fracture. Per orthopedics, no need for surgical intervention, okay for conservative management with placement in sling. Pain control with scheduled Tylenol and oxycodone as needed. Medically stable for discharge on 04/18, discharged to [facility] on 04/19. 2. Hyponatremia, stable ? Sodium 128 on admit, chloride 92. No previous labs for comparison. Sodium remained stable 127-129 during hospitalization despite IV fluid resuscitation, suspect this is her baseline. No mental status changes noted. Chronic medical conditions: ? CAD s/p CABG, hypertension, hyperlipidemia: Continue home statin, losartan, nebivolol. ? Type 2 diabetes mellitus: Continue Accu-Cheks and sliding scale insulin with meals while inpatient. ? Mild chronic anemia: Hemoglobin stable around baseline 9-10 during hospitalization. ? Anxiety/depression: Stable. Continue home citalopram. ? GERD: Continue home PPI. ? History of sick sinus syndrome/tachybradycardia syndrome: Has not had pacemaker placed, continue close outpatient follow-up with cardiology. ? History of ascending aortic aneurysm s/p repair Total clinical time spent by myself addressing the patient's medical issues, reviewing all the data, and collaborating with patient's care team: 35 minutes. Allergies/Procedures Done in Hospital Allergies sitagliptin (From [place]) Allergy (Severe, Verified 04/16/24 20:44) Swelling face and legs Penicillins Allergy (Unknown, Verified 04/16/24 20:44) Unknown Procedures: - (shoulder x-ray, facial/sinus CT, CT brain) Type of Care/Length of Stay Estimated LOS: Convalescent Care Less Than 30 days Type of Care Needed: Skilled Rehab Potential: Fair Prognosis: Fair Additional Orders/Day of Discharge H&P will serve as current which was dated: 04/16/24 Day of Discharge: 04/19/24 Dietary and Speech Recommendations Dietitian Recommendations/Changes: Continue cardiac; 1800 calorie controlled/consistent carbohydrate diet. If PO intake declines, recommend liberlizing diet to 1800 calorie controlled, no added salt. Will monitor weight as availabe. Discharge Plan Admission Admit Date/Time: 04/16/24 23:42 Primary Reason for Your Visit: fall with right arm pain Attending Provider: Simon Mcfarland Primary Care Provider: Shaquille Thacker Consulting Providers: Nichole Bautista Discharge Orders/Prescriptions Prescriptions: New acetaminophen 325 mg Tablet 1,000 mg PO Q8 30 Days Qty: 0 0RF sennosides-docusate sodium [Stimulant Laxative Plus] 8.6-50 mg Tablet 2 tab PO BID Qty: 0 0RF oxycodone 5 mg Tablet 5 mg PO Q4H PRN PRN (Reason: Pain Score 4-10) 5 Days Qty: 0 0RF Continued losartan 25 mg tablet 25 mg PO DAILY trazodone 50 mg tablet 50 mg PO QHS metformin 500 mg tablet 500 mg PO BID Rx Instructions: metformin xl 500mg daily levothyroxine 25 mcg tablet 25 mcg PO DAILY citalopram 20 mg tablet 20 mg PO DAILY loperamide [Anti-Diarrheal (loperamide)] 2 mg capsule 2 mg PO TID PRN (Reason: loose stool) magnesium oxide 400 mg magnesium capsule 400 mg PO BID magnesium hydroxide [Dulcolax (magnesium hydroxide)] 400 mg/5 mL suspension 30 ml PO DAILY PRN (Reason: constipation) pantoprazole 20 mg tablet,delayed release (DR/EC) 20 mg PO BID lidocaine [Lidocare] 4 % adhesive patch,medicated 1 patch topical DAILY PRN (Reason: pain) atorvastatin 20 mg tablet 20 mg PO QHS nebivolol 5 mg tablet 5 mg PO DAILY Discontinued hydrocodone-acetaminophen [[place]] 7.5-325 mg tablet 1 tab PO Q8H PRN (Reason: Pain) loperamide [Anti-Diarrheal (loperamide)] 2 mg capsule 4 mg PO PRN PRN (Reason: loose stool) acetaminophen 325 mg capsule 325 mg PO Q4H PRN (Reason: fever or pain) Referrals / Follow Up: Shaquille Thacker MD [Primary Care Provider] - Disposition Disposition (needs filled in before D/C Order can be placed): Intermediate Facility
[2024-04-19] MEDS: 0.9% Saline Lock 10 ML Syringe IV (10:06)
--- NOTE | 2024-04-19 10:47 | NURSING ---
report called to john vidales, [phone]. pt to be picked up by transport at 1100
[2024-04-19] MEDS: Morphine 2 MG/ML Syringe IM (11:48)
--- NOTE | 2024-04-19 11:58 | NURSING ---
[facility] AT [facility] WAS UPDATED ABOUT ELEVATED BP AND PAIN AND THAT ADDITIONAL DOSE OF MORPHINE IM WAS GIVEN
== END 2024-04-19 12:00 | disposition skilled nursing facility (03) | DRG 563 ==
LOC: ED 23:33 → MS3 23:57
PROVIDERS: Admitting Provider Family Medicine; Emergency Provider Emergency Medicine; PCP Family Medicine; Visit Provider Hospitalist
DX: S42.291A Other displaced fracture of upper end of right humerus, initial encounter for closed fracture (principal); E87.1 Hypo-osmolality and hyponatremia; R62.7 Adult failure to thrive; Z66 Do not resuscitate; I11.0 Hypertensive heart disease with heart failure; E11.42 Type 2 diabetes mellitus with diabetic polyneuropathy; F32.A Depression, unspecified; E03.9 Hypothyroidism, unspecified; I50.9 Heart failure, unspecified; E78.00 Pure hypercholesterolemia, unspecified; I25.10 Atherosclerotic heart disease of native coronary artery without angina pectoris; K21.9 Gastro-esophageal reflux disease without esophagitis; G47.33 Obstructive sleep apnea (adult) (pediatric); S00.83XA Contusion of other part of head, initial encounter; F41.9 Anxiety disorder, unspecified; W06.XXXA Fall from bed, initial encounter; Z68.25 Body mass index [BMI] 25.0-25.9, adult; Y92.092 Bedroom in other non-institutional residence as the place of occurrence of the external cause; Y93.E8 Activity, other personal hygiene; Z79.84 Long term (current) use of oral hypoglycemic drugs; Z79.02 Long term (current) use of antithrombotics/antiplatelets; Z79.890 Hormone replacement therapy; Z79.891 Long term (current) use of opiate analgesic; Z79.899 Other long term (current) drug therapy; Z95.1 Presence of aortocoronary bypass graft
CPT/HCPCS: 36415; 70450; 70486; 73030; 80048; 80053; 82962; 85025; 85027; 94668; 97162; 97166; 97535; 99285; A4216

== ENCOUNTER → 2024-08-11 05:00 | Outpatient (REF) | payer MEDICARE, BC, SELFPAY | LOC: OLS.WHLEAS 05:00 | PROVIDERS: PCP Family Medicine; Visit Provider Internal Medicine | DX: E78.5 Hyperlipidemia, unspecified (principal); E11.44 Type 2 diabetes mellitus with diabetic amyotrophy | CPT/HCPCS: 36415; 83036; 84443 ==

== ENCOUNTER → 2024-10-13 04:00 | Outpatient (REF) | payer MEDICARE, BC, SELFPAY ==
--- OUTSIDE RECORDS SUMMARY | 2024-10-13 03:54 | XMS RPT_ITS | CCD ---
Author Organization [facility] Care Team Providers Care Feed Inspection Supervisor Name Role Phone Shaquille Benjamin MD Primary Care Provider Dr. Shaquille Benjamin Primary Care Provider Dr. Shaquille Benjamin Referring Provider Blanca TECHNICIAN SUBMARINE CABLE EQUIPMENT, TECHNICIAN SUBMARINE CABLE EQUIPMENT-C Carola Olmos Attending Provider Friend, Dr. Castanon Attending Provider Friend, Dr. Castanon Other Provider Shaquille Benjamin MD Primary Care Provider Shaquille Benjamin MD Primary Care Provider Shaquille Benjamin MD Primary Care Provider Shaquille Benjamin MD Primary Care Provider Haagen MEN'S SWIM COACH.Rajwinder KHALIL Unavailable Suppan MEN'S SWIM COACH.GOLF COACH, Estefani A Unavailable [phone] [facility] MEN'S SWIM COACH.GOLF COACH, Estefani A Unavailable Suppan MEN'S SWIM COACH.GOLF COACH, Estefani A Unavailable Loraine Patterson RN Unavailable Unavailable CODY WEAVER FACP, JUAN Umaña Attending Unavail able SHAQUILLE BENJAMIN MD Care Unavailable TATA MEN'S SWIM COACH-LARISSA KHALIL Admitting Unavaila Loraine Polk RN Unavailable Unavailable SHAQUILLE BENJAMIN Referring Unavailable JOCELYN BROTHERS Attending Unavailable SHAQUILLE BENJAMIN Primary Care Unavailable SHAQUILLE BENJAMIN Referring Unavailable SHAQUILLE BENJAMIN Primary Care Unavailable SHAQUILLE BENJAMIN Attending Unavailable SHAQUILLE BENJAMIN Primary Care Unavailable SOURAV, SHAQUILLE J Attending Unavailable SOURAV, SHAQUILLE J Primary Care Unavailable SOURAV, SHAQUILLE J Attending Unavailable SOURAV, SHAQUILLE J Primary Care Unavailable SOURAV, SHAQUILLE Tellez Primary Care Unavailable Senia Billy MD Attending Provider Unavaila ble Sourav CHACKO, Shaquille Primary Care Provider Unavaila catarina Benjamin MD, Dr. Corbin Primary Care Provider Senia Billy MD Referring Provider Unavaila catarina Billy MD, Dr. Conn Attending Provider Mariajose WEAVER, Senia Attending Provider Unavaila catarina Jane TECHNICIAN SUBMARINE CABLE EQUIPMENT-C, Oly Attending Provider Sourav WEAVER, Dr. Corbin Primary Care Provider Senia Billy MD Attending Provider Unavaila ble [place], Shaquille Primary Care Unavailable Lucinda TECHNICIAN SUBMARINE CABLE EQUIPMENT, Oly Attending Unavailable Lucinda TECHNICIAN SUBMARINE CABLE EQUIPMENT, Oly Attending Unavailable [place], Shaquille Primary Care Unavailable Nichole Bautista Admitting Unavailable Nichole Bautista Consulting Unavailable Simon Mcfarland Attending Unavailable [place], Shaquille Primary Care Unavailable Simon Mcfarland Consulting Unavailable Oleghe OLS, Efewongbe Referring Unavailabl e Oleghe OLS, Efewongbe Attending Unavailabl e [place], Shaquille Primary Care Unavailable [place], Shaquille Primary Care Unavailable Oleghe OLS, Efsunilongbe Attending Unavailabl e [place], Shaquille Primary Care Unavailable Oleghe OLS, Efewongbe Attending Unavailabl e Fernandaton TECHNICIAN SUBMARINE CABLE EQUIPMENT, Oly Attending Unavailable [place], Shaquille Primary Care Unavailable Oleghe, Efewongbe Attending Unavailable [place], Shaquille Primary Care Unavailable Nichole Bautista Attending Unavailable [place], Shaquille Primary Care Unavailable Oleghe OLS, Efewongbe Attending Unavailabl e Oleghe OLS, Efewongbe Attending Unavailabl e [place], Shaquille Primary Care Unavailable Oleghe OLS, Efewongbe Attending Unavailabl e Sourav, Shaquille Primary Care Unavailable Oleghe OLS, Efewongbe Attending Unavailabl e Sourav, Shaquille Primary Care Unavailable Oleghe OLS, Efewongbe Referring Unavailabl e Oleghe OLS, Efewongbe Attending Unavailabl e [place], Shaquille Primary Care Unavailable Nichole Bautista Consulting Unavailable Nichole Bautista Admitting Unavailable Simon Mcfarland Attending Unavailable [place], Shaquille Primary Care Unavailable [place], Shaquille Referring Unavailable Lg Kirkland Attending Unavailable Sourav, Shaquille Primary Care Unavailable [facility] Referring Unavailable Em Duggan Attending Unavailable [facility] Gorman [facility] Unavailable [facility], Shaquille Primary Care Unavailable Senia Gorman Attending UnavailLg Estevez Attending Unavailable [facility] Primary Care Unavailable [facility] Referring Unavailable Lg Kirkland Attending Unavailable Lg Kirkland Consulting Unavailable [facility] Primary Care Unavailable Senia Billy Attending Unavailable [facility] Primary Care Unavailable Oly Jane NP Attending Unavailable [facility] Primary Care Unavailable Senia Billy Attending Unavailable [facility] Primary Care Unavailable Allergies Allergy Classification Reported Allergen(s) Allergy Type Date of Onset Reaction(s) Facility (20 sources) Penicillin; Translations: [PENICILLIN] Drug Allergy 10-14-2017 [facility] (20 sources) SITagliptin; Translations: [SITAGLIPTIN] Drug Allergy 10-14-2017 [facility] Work Phone: (7 sources) Penicillins; Translations: [Penicillins] Allergy to substance 09-28-2021 Unknown [facility] (1 source) SITagliptin Drug Allergy 04-16-2024 [facility] Repository Medications Current Medications Medication Drug Class(es) Dates Sig (Normalized) Sig (Original) acetaminophen 325 mg oral tablet (12 sources) Start: 04-19-2024 Acetaminophen 325 mg Tablet Active 1000 mg PO EVERY 8 HOURS 0 30 0 April 19, 2024 1:00am Start: 04-16-2024 End: 04-19-2024 take 1 capsule by mouth every four hours as needed for pain Acetaminophen 325 mg capsule Discontinued 325 mg PO Q4H as needed for fever or pain April 16, 2024 1:00am April 19, 2024 10:50am Start: 02-24-2024 End: 04-16-2024 take 2 tablets by mouth every six hours Acetaminophen (Acetaminophen Extra Strength) 500 mg tablet Discontinued 1000 mg PO EVERY 6 HOURS February 24, 2024 1:00am April 17, 2024 12:57am acetaminophen 325 mg / HYDROcodone bitartrate 5 mg oral tablet (20 sources) Opioid Agonist Start: 02-27-2024 End: 03-28-2024 take 1 tablet by mouth every eight hours as needed for pain HYDROcodone-acetaminophen (NORCO) 5-325 mg per tablet Indications: Primary osteoarthritis of both knees , Chronic thoracic back pain, unspecified back pain laterality Take 1 tablet by mouth every 8 hours as needed for pain for up to 30 days. 90 tablet 02/27/2024 Active Start: 10-08-2018 End: 04-19-2024 Hydrocodone-Acetaminophen (N orco) 7.5-325 mg tablet Discontinued 1 {tbl} PO Q8H as needed for Pain 0 April 13, 2019 2:32pm April 19, 2024 10:50am Comment on above: Take 1 tablet by patrick th every 8 hours as needed for pain for up to 41 days. Take 1 tablet by patrick th every 8 hours as needed for pain for up to 30 days. citalopram 20 mg oral tablet (20 sources) Serotonin Reuptake Inhibitor Start: 05-12-19 End: 05-31-19 take 1 tablet by mouth once daily Citalopram 20 mg tablet Active 20 mg PO DAILY September 28, 2021 12:00am depression Comment on above: Take 1 tablet by patrick once daily. docusate sodium 50 mg / sennosides, penitentiary 8.6 mg oral tablet (4 sources) Start: 04-19-19 Sennosides-Docusate Sodium (Stimulant Laxative Plus) 8.6-50 mg Tablet Active 2 {tbl} PO TWICE A DAY 0 0 April 19, 2024 1:00am levothyroxine sodium 0.025 mg oral tablet (20 sources) l-Thyroxine Start: 11-20-19 End: 11-11-19 take 1 tablet by mouth once daily Levothyroxine 25 mcg tablet Active 25 ug PO DAILY November 20, 2019 12:00am thyroid Comment on above: Take 1 tablet by patrick th once daily. Take on empty stomach. For thyroid. lidocaine 0.04 mg/mg medicated patch (4 sources) Antiarrhythmic, Amide Local Anesthetic Start: 04-16-19 Lidocaine (Lidocare) 4 % adhesive patch,medicated Active 1 NMA TOPICAL DAILY as needed for pain April 16, 2024 1:00am loperamide hydrochloride 2 mg oral capsule (20 sources) Opioid Agonist Start: 04-16-19 End: 04-19-19 take 1 capsule by mouth three times daily as needed Loperamide (Anti-Diarrheal (Loperamide)) 2 mg capsule Active 2 mg PO THREE TIMES A DAY as needed for loose stool April 16, 2024 1:00am loperamide HCl ( IMODIUM) 2 mg tab Take 2 mg by mouth as needed. Active losartan potassium 25 mg oral tablet (20 sources) Angiotensin 2 Receptor Sameer Start: 10-08-2018 End: 03-15-2024 take 1 tablet by mouth once daily Losartan 25 mg tablet Active 25 mg PO DAILY October 08, 2018 12:00am bp Comment on above: Take 1 tablet by mouth once daily. Magnesium Hydroxide (10 sources) Start: 04-16-2024 take 1 mL by mouth once daily as needed for constipation Magnesium Hydroxide (Dulcolax (Magnesium Hydroxide)) 400 mg/5 mL suspension Active 30 mL PO DAILY as needed for constipation April 16, 2024 1:00am End: 01-29-2024 magnesium hydroxide (MILK OF MAGNESIA) 400 mg/5 mL suspension Take by mouth once daily as needed. 01/29/2024 Discontinued magnesium oxide 400 mg oral capsule (20 sources) Start: 04-16-2024 take 1 capsule by mouth twice daily Magnesium Oxide 400 mg magnesium capsule Active 400 mg PO TWICE A DAY April 16, 2024 1:00am supplement Start: 12-21-2021 End: 02-07-2024 take 1 capsule by mouth once daily Magnesium Oxide 400 mg magnesium capsule Discontinued 400 mg PO DAILY December 21, 2021 3:04pm February 07, 2024 4:42pm Start: 06-22-2020 End: 07-30-2022 take 1 tablet by mouth twice daily magnesium oxide (MAGOX) 400 mg (241.3 mg magnesium) tablet Indications: Hypomagnesemia Take 1 tablet by mouth twice daily. 180 tablet 2 07/26/2021 07/30/2022 Discontinued Start: 10-08-2018 End: 12-21-2021 take 1 capsule by mouth twice daily Magnesium Oxide 400 mg magnesium capsule Discontinued 400 mg PO TWICE A DAY October 08, 2018 12:00am December 21, 2021 3:05pm Start: 10-08-2018 take 400 mg by mouth once daily Magnesium Oxide Active 400 MG PO DAILY October 08, 2018 12:00am End: 01-29-2024 magnesium oxide 400 mg magne sium tab Take by mouth. 01/29/2024 Discontinued Comment on above: Take 1 tablet by patrick th twice daily. 24 hr metFORMIN hydrochloride 500 mg extended release oral tablet (20 sources) Biguanide Start: take 1 tablet by mouth once daily at breakfast metFORMIN ER (GLUCOPHAGE XR) 500 mg 24 hr tablet Indications: Type 2 diabetes mellitus with complication, without long-term current use of insulin (HCC) Take 1 tablet by mouth daily with breakfast. 90 tablet 1 12/02/2023 Active Start: 12-03-2022 End: 11-30-2023 take 1 tablet by mouth once daily at breakfast metFORMIN ER (GLUCOPHAGE XR) 500 mg 24 hr tablet Indications: Type 2 diabetes mellitus with complication, without long-term current use of insulin (HCC) Take 1 tablet by mouth daily with breakfast. 90 tablet 1 06/03/2023 11/30/2023 Discontinued Start: 10-08-2018 End: 03-16-2023 take 1 tablet by mouth twice daily Metformin 500 mg tablet Active 500 mg PO TWICE A DAY March 07, 2023 3:35pm metformin xl 500mg daily Comment on above: Take 1 tablet by patrick th twice daily with meals. Take 1 tablet by patrick th daily with breakfast. nebivolol 5 mg oral tablet (20 sources) Start: 02-24-2024 End: 02-26-2025 take 1 tablet by mouth once daily Nebivolol 5 mg tablet Active 5 mg PO DAILY February 24, 2024 1:00am htn Start: 03-07-2023 End: 02-24-2024 take 2 tablets by mouth once daily Nebivolol 2.5 mg tablet Discontinued 5 mg PO DAILY March 07, 2023 3:34pm February 24, 2024 10:31am Start: 11-07-2022 End: 02-06-2024 take 1 tablet by mouth once daily nebivolol (BYSTOLIC) 5 mg tablet Indications: Essential hypertension Take 1 tablet by mouth once daily. 90 tablet 3 02/06/2023 02/06/2024 Active Start: 10-09-2018 End: 03-07-2023 take 1 tablet by mouth once daily Nebivolol 2.5 mg tablet Discontinued 2.5 mg PO DAILY October 09, 2018 12:00am March 07, 2023 3:35pm Start: 10-08-2018 End: 10-09-2018 take 2.5 mg by mouth once daily Nebivolol (Bystolic) 5 mg tablet Discontinued 2.5 mg PO DAILY October 08, 2018 12:00am October 09, 2018 1:42pm Comment on above: Take 1 tablet by patrick th once daily. oxyCODONE hydrochloride 5 mg oral tablet (20 sources) Opioid Agonist Start: 09-24-2024 End: 10-01-2024 take 1 tablet by mouth twice daily Oxycodone 5 mg tablet Active 5 mg PO TWICE A DAY 60 30 0 October 01, 2024 October 30, 2024 12:00am Closed fracture of proximal end of right humerus pain Start: 07-27-2024 End: 09-23-2024 take 1 tablet by mouth twice daily Oxycodone 5 mg tablet Discontinued 5 mg PO TWICE A DAY 60 30 0 August 24, 2024 September 22, 2024 12:00am September 23, 2024 12:07am Closed fracture of proximal end of right humerus pain Start: 06-24-2024 End: 07-24-2024 take 1 tablet by mouth every four hours as needed for pain Oxycodone 5 mg tablet Discontinued 5 mg PO Q4H as needed for pain 100 30 0 June 24, 2024 July 23, 2024 12:00am July 24, 2024 12:09am Closed fracture of proximal end of right humerus Start: 05-07-2024 End: 07-24-2024 take 1 tablet by mouth twice daily Oxycodone 5 mg tablet Discontinued 5 mg PO TWICE A DAY 60 30 0 June 24, 2024 July 23, 2024 12:00am July 24, 2024 12:09am Closed fracture of proximal end of right humerus pain Start: 04-19-2024 End: 05-25-2024 take 1 tablet by mouth every four hours as needed for pain Oxycodone 5 mg tablet Discontinued 5 mg PO EVERY 4 HOURS NEEDED as needed for Pain Score 4-10 30 20 0 May 05, 2024 May 24, 2024 12:00am May 25, 2024 12:08am Closed fracture of proximal end of right humerus pantoprazole 20 mg delayed release oral tablet (20 sources) Proton Pump Inhibitor Start: 04-16-2024 take 1 tablet by mouth twice daily Pantoprazole 20 mg tablet,delayed release (DR/EC) Active 20 mg PO TWICE A DAY April 16, 2024 1:00am gerd Start: 02-07-2024 End: 04-16-2024 take 1 tablet by mouth twice daily Pantoprazole 40 mg tablet,delayed release (DR/EC) Discontinued 40 mg PO TWICE A DAY 60 3 February 07, 2024 1:00am April 17, 2024 12:55am Start: 11-01-2021 End: 12-21-2021 take 1 tablet by mouth twice daily Pantoprazole 40 mg tablet,delayed release (DR/EC) Discontinued 40 mg PO TWICE A DAY 60 1 November 01, 2021 12:00am December 21, 2021 3:05pm Start: 04-13-2019 End: 02-24-2024 take 1 tablet by mouth twice daily Pantoprazole 20 mg tablet,delayed release (DR/EC) Discontinued 20 mg PO TWICE A DAY April 13, 2019 1:00am February 24, 2024 10:30am take 1 tablet by patrick th once daily pantoprazole DR (PROTONIX) 40 mg tablet Take 40 mg by mouth once daily. 0 Active Comment on above: Take 1 tablet by patrick th twice daily before meals. Take 40 mg by mouth once daily. Take 1 tablet by patrick th twice daily. sertraline 25 mg oral tablet (18 sources) Serotonin Reuptake Inhibitor Start: 03-23-2021 take 25 mg by mouth every other day Sertraline Active 25 MG PO .QOD March 23, 2021 1:00am Start: 11-03-2020 End: 08-09-2021 take 1 tablet by mouth once daily sertraline (ZOLOFT) 100 mg tablet Indications: Depression, unspecified depression type Take 1 tablet by mouth once daily. 30 tablet 5 07/26/2021 08/09/2021 Discontinued Start: 10-09-2018 End: 04-13-2019 Sertraline 100 mg tablet Discontinued 50 mg PO DAILY October 09, 2018 1:42pm April 13, 2019 2:36pm Start: 10-09-2018 End: 04-13-2019 take 50 mg by mouth once daily Sertraline Discontinued 50 MG PO DAILY October 09, 2018 1:42pm April 13, 2019 2:36pm Start: 10-08-2018 End: 10-09-2018 take 1 tablet by mouth once daily Sertraline 100 mg tablet Discontinued 100 mg PO DAILY October 08, 2018 12:00am October 09, 2018 1:43pm Comment on above: Take 1 tablet by patrick th once daily. traZODone hydrochloride 50 mg oral tablet (20 sources) Serotonin Reuptake Inhibitor Start: 9 End: take 1 tablet by mouth at bedtime Trazodone 50 mg tablet Active 50 mg PO AT BEDTIME October 08, 2018 12:00am mood Comment on above: Take 1 tablet by patrick th daily at bedtime. Completed/Discontinued Medications Medication Drug Class(es) Dates Sig (Normalized) Sig (Original) aspirin 81 mg delayed release oral tablet (20 sources) Platelet Aggregation Inhibitor, Nonsteroidal Anti-inflammatory Drug Start: 04-13-2019 End: 06-07-2022 Aspirin (Adult Low Dose Aspirin) 81 mg tablet,delayed release (DR/EC) Discontinued 81 mg PO DAILY April 13, 2019 1:00am June 07, 2022 3:03pm End: 01-29-2024 take 81 mg by mouth once daily BABY ASPIRIN ORAL Take 81 mg by mouth once daily. 01/29/2024 Discontinued Comment on above: Take 81 mg by mouth once daily. atorvastatin 20 mg oral tablet (20 sources) HMG-CoA Reductase Inhibitor Start: End: take 1 tablet by mouth once daily Atorvastatin 20 mg tablet Discontinued 20 mg PO DAILY 90 3 October 09, 2018 2:36pm April 17, 2024 12:57am Comment on above: Take 1 tablet by patrick th once daily. benzonatate 100 mg oral capsule (6 sources) Non-narcotic Antitussive Start: End: take 1 capsule by mouth three times daily as needed Benzonatate (Tessalon Perles) 100 mg capsule Discontinued 100 mg PO THREE TIMES A DAY as needed October 08, 2018 12:00am October 09, 2018 1:43pm 24 hr buPROPion hydrochloride 150 mg extended release oral tablet (7 sources) Aminoketone Start: 023 End: take 1 tablet by mouth once daily in the morning Bupropion Hcl (Wellbutrin Xl) 150 mg tablet extended release 24 hr Discontinued 150 mg PO EVERY MORNING June 07, 2022 12:00am March 07, 2023 3:34pm Comment on above: Take 1 tablet by patrick th once daily. celecoxib 100 mg oral capsule (2 sources) Nonsteroidal Anti-inflammatory Drug Start: End: take 1 capsule by mouth once daily as needed celecoxib (CELEBREX) 100 mg capsule Take 1 capsule by mouth once daily. Prn with food 30 capsule 2 12/16/2023 12/24/2023 Discontinued cholecalciferol 0.05 mg oral tablet (20 sources) Vitamin D Start: End: take 1 tablet by mouth once daily Cholecalciferol (Vitamin D3) 2,000 unit tablet Discontinued 2000 U PO DAILY October 08, 2018 12:00am February 07, 2024 4:41pm End: 01-29-2024 Cholecalciferol, Vitamin D3, 50 mcg (2,000 unit) cap Take by mouth. 01/29/2024 Discontinued Cholecalciferol, Vitamin D3, (VITAMIN D-3) 2,000 unit cap Take by mouth. 0 Active Comment on above: Take by mouth. Cyanocobalamin-Renaldo caprozat Sod (2 sources) Start: 10-09-19 End: 10-10-19 take 1 tablet by mouth once daily Cyanocobalamin-Salcapr ozat Sod Discontinued 1 TABLET PO DAILY October 08, 2018 12:00am October 09, 2018 1:43pm Cyanocobalamin-Renaldo caprozat Sod 1,000-100 mcg-mg tablet (4 sources) Start: 10-09-19 End: 10-10-19 Cyanocobalamin-Salcapr ozat Sod 1,000-100 mcg-mg tablet Discontinued 1 {tbl} PO DAILY October 08, 2018 12:00am October 09, 2018 1:43pm DULoxetine 60 mg delayed release oral capsule (6 sources) Serotonin and Norepinephrine Reuptake Inhibitor Start: 04-13-19 End: 03-23-19 take 1 capsule by mouth once daily Duloxetine 60 mg capsule,delayed release(DR/EC) Discontinued 60 mg PO DAILY April 13, 2019 1:00am March 23, 2021 2:07pm Magnesium (12 sources) Start: 07-31-19 23 End: 09-20-19 24 take 2 tablets by mouth twice daily Magnesium 200 mg tab Indications: Hypomagnesemia As a gummy-take 2 po bid 0 07/30/2022 09/20/2023 Discontinued Start: 07-30-2022 take 2 tablets by mo uth twice daily Magnesium 200 mg tab Indications: Hypomagnesemia As a gummy-take 2 po bid 0 07/30/2022 Active Comment on above: As a gummy-take 2 po bid magnesium glycinate 100 mg oral tablet (12 sources) Start: 4 End: 4 take 1 tablet by mouth once daily Magnesium Glycinate (MAG GLYCINATE) 100 mg tab Indications: Hypomagnesemia Take 1 tablet by mouth once daily. 09/20/2023 12/24/2023 Discontinued omeprazole 20 mg delayed release oral capsule (6 sources) Proton Pump Inhibitor Start: 9 End: 0 take 1 capsule by mouth twice daily Omeprazole 20 mg capsule,delayed release(DR/EC) Discontinued 20 mg PO TWICE A DAY October 08, 2018 12:00am April 13, 2019 2:36pm predniSONE 20 mg oral tablet (12 sources) Start: 4 End: 4 take 1 tablet by mouth once daily predniSONE (DELTASONE) 20 mg tablet Indications: Strain of lumbar region, initial encounter One tab by mouth daily for 5 days. 5 tablet 12/05/2023 01/29/2024 Discontinued Start: 10-08-2018 End: 11-20-2019 take 1 tablet by mouth once daily as needed Prednisone 10 mg tablet Discontinued 10 mg PO DAILY as needed October 08, 2018 12:00am November 20, 2019 10:16am ubidecarenone 200 mg oral capsule (20 sources) Start: 04-13-2019 End: 04-16-2024 Coenzyme Q10 (Co Q-10) 200 m g capsule Discontinued 200 mg PO DAILY April 13, 2019 1:00am April 17, 2024 12:57am Start: 10-09-2018 End: 04-13-2019 Coenzyme Q10 10 mg capsule Discontinued 50 mg PO TWICE A DAY October 09, 2018 1:41pm April 13, 2019 2:35pm Start: 10-08-2018 End: 10-09-2018 Coenzyme Q10 10 mg capsule Discontinued 50 mg PO DAILY October 08, 2018 12:00am October 09, 2018 1:43pm End: 01-29-2024 take 5 capsules by mouth twice daily ubidecarenone Q-10 (COENZYME Q-10) 10 mg cap Take 50 mg by mouth twice daily. 01/29/2024 Discontinued Comment on above: Take 50 mg by mouth twice daily. vitamin b12 1 mg oral capsule (20 sources) Vitamin B12 Start: 10-08-2018 End: 02-07-2024 take 1 capsule by mouth once daily Cyanocobalamin (Vitamin B-12) 1,000 mcg capsule Discontinued 1000 ug PO DAILY October 08, 2018 12:00am February 07, 2024 4:41pm End: 01-29-2024 take 1 tablet by mouth once daily cyanocobalamin (VITAMIN B-12) 1,000 mcg tab Take 1,000 mcg by mouth once daily. 01/29/2024 Discontinued Comment on above: Take 1,000 mcg by [facility] once daily. vitamin V75-xrfhngp B1 1,000 mcg-100 mg/mL injection solution (2 sources) Start: 9 End: 9 inject 1 mL by intramuscular injection every month vitamin A12-sbcgtde B1 1,000 mcg-100 mg/mL injection solution Discontinued 1 ML IM EVERY MONTH October 08, 2018 12:00am October 09, 2018 1:43pm Vitamin O21-Gdnnart B1 1,000-100 mg/mL solution (4 sources) Start: 9 End: 9 inject 1 mL by intramuscular injection every month Vitamin H78-Nighspz B1 1,000-100 mg/mL solution Discontinued 1 mL IM EVERY MONTH 0 October 08, 2018 12:00am October 09, 2018 1:43pm Vitamins A,C,D-Gsev-Xzatno (Preservision Areds) 14,320-226-200 fkzq-rv-iiow capsule (6 sources) Start: 0 End: 4 Vitamins A,C,E-Vmdp-Vfkoum (Preservision Areds) 14,320-226-200 dvjl-vt-oevo capsule Discontinued 1 NMA PO TWICE A DAY April 13, 2019 1:00am February 07, 2024 4:42pm Start: 04-13-2019 take 1 capsule by mo [facility] twice daily Vitamins A,C,E-Zmro-Gkrzey (Preservision Areds) 14,320-226-200 aiip-dv-rozl capsule Active 1 CAP PO TWICE A DAY April 13, 2019 1:00am Problems Active Problems Problem Classification Problem Date Documented Da te Episodic/Chronic Anxiety disorders (6 sources) Mixed anxiety and depressive disorder; Translations: [Other specified anxiety disorders] Chronic Cardiac and circulatory congenital anomalies (20 sources) H/O: cardiovascular disease; Translations: [Personal history of (corrected) congenital malformations of heart and circulatory system] Onset: 3 11-07-2022 Episodic Comment on above: Repair 1958 Cardiac dysrhythmias (20 sources) Sick sinus syndrome; Translations: [Sick sinus syndrome] Onset: 3 11-07-2022 Chronic Congestive heart failure; nonhypertensive (6 sources) Congestive heart failure; Translations: [Heart failure, unspecified] 11-20-2019 Chronic Coronary atherosclerosis and other heart disease (20 sources) Coronary arteriosclerosis; Translations: [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] Onset: 8 09-15-2018 Chronic Deficiency and other anemia (1 source) Chronic anemia; Translations: [Anemia, unspecified] Episodic Diabetes mellitus with complications (20 sources) Type 2 diabetes mellitus; Translations: [Type 2 diabetes mellitus with unspecified complications] Onset: 8 10-14-2017 Chronic Disorders of lipid metabolism (20 sources) Mixed hyperlipidemia; Translations: [Mixed hyperlipidemia] Onset: 8 10-16-2017 Chronic Esophageal disorders (20 sources) Gastroesophageal reflux disease without esophagitis; Translations: [Gastro-esophageal reflux disease without esophagitis] Onset: 8 10-14-2017 Chronic Essential hypertension (20 sources) Essential hypertension; Translations: [Essential (primary) hypertension] Onset: 8 10-14-2017 Chronic Comment on above: CONTROLLED ON MED Hypertension with complications and secondary hypertension (20 sources) Hypertensive heart failure; Translations: [Hypertensive heart disease with heart failure] Onset: 8 10-16-2017 Chronic Immunizations and screening for infectious disease (1 source) Vaccination needed; Translations: [Encounter for immunization] 05-21-2023 Episodic Malaise and fatigue (20 sources) Fatigue; Translations: [Other fatigue] Onset: 2 Resolved: 2 Episodic Mood disorders (20 sources) Depressive disorder; Translations: [Depression, unspecified depression type] Onset: 8 Resolved: 4 Chronic Occlusion or stenosis of precerebral arteries (20 sources) Bilateral stenosis of carotid arteries; Translations: [Occlusion and stenosis of bilateral carotid arteries] Onset: 9 11-06-2018 Chronic Osteoarthritis (20 sources) Primary gonarthrosis, bilateral; Translations: [Bilateral primary osteoarthritis of knee] Onset: 8 10-16-2017 Chronic Other aftercare (6 sources) Patient encounter status; Translations: [Encounter for therapeutic drug level monitoring] Episodic Other circulatory disease (1 source) Abnormal peripheral pulse; Translations: [Other specified symptoms and signs involving the circulatory and respiratory systems] 10-30-2023 Episodic Other connective tissue disease (1 source) Muscle wasting and atrophy, not elsewhere classified, right lower leg; Translations: [Muscle wasting and atrophy, not elsewhere classified, right lower leg] Onset: 5 Episodic Other gastrointestinal disorders (20 sources) Dysphagia; Translations: [Dysphagia, unspecified] Onset: 9 02-19-2019 Episodic Other injuries and conditions due to external causes (20 sources) Closed injury of head; Translations: [Unspecified injury of head, initial encounter] Onset: 3 Resolved: 3 11-07-2022 Episodic Other nervous system disorders (1 source) Abnormal gait; Translations: [Unspecified abnormalities of gait and mobility] 12-24-2023 Episodic Other nutritional; endocrine; and metabolic disorders (20 sources) Hypomagnesemia; Translations: [Hypomagnesemia] Onset: 8 10-16-2017 Chronic Other nutritional; endocrine; and metabolic disorders (1 source) Hypomagnesemia; Translations: [Hypomagnesemia] Onset: 3 Chronic Other skin disorders (20 sources) Mass of neck; Translations: [Localized swelling, mass and lump, neck] Onset: 2 Resolved: 3 11-07-2022 Episodic Residual codes; unclassified (20 sources) Obstructive sleep apnea syndrome; Translations: [Obstructive sleep apnea (adult) (pediatric)] Onset: 8 09-15-2018 Chronic Residual codes; unclassified (6 sources) Sleep apnea; Translations: [Sleep apnea, unspecified] 10-25-2021 Chronic Comment on above: NO MACHINE USED Residual codes; unclassified (1 source) Obstructive sleep apnea (adult) (pediatric); Translations: [ELKIN (obstructive sleep apnea)] Onset: 9 Chronic Residual codes; unclassified (4 sources) History of great vessel repair; Translations: [Other specified postprocedural states] 10-08-2018 Episodic Skull and face fractures (20 sources) Closed fracture of orbital floor; Translations: [Fracture of orbital floor, unspecified side, initial encounter for closed fracture] Onset: 3 Resolved: 4 11-07-2022 Episodic Sprains and strains (1 source) Low back strain; Translations: [Strain of muscle, fascia and tendon of lower back, initial encounter] 12-05-2023 Episodic Superficial injury; contusion (4 sources) Contusion of face; Translations: [Contusion of other part of head, initial encounter] 04-27-2024 Episodic Thyroid disorders (20 sources) Subclinical hypothyroidism; Translations: [Other specified hypothyroidism] Onset: 9 10-08-2018 Chronic Past or Other Problems Problem Classification Problem Date Documented Da te Episodic/Chronic Coronary atherosclerosis and other heart disease (1 source) Presence of aortocoronary bypass graft; Translations: [History of coronary artery bypass surgery] Onset: 11-07-2022 Episodic Deficiency and other anemia (20 sources) Anemia; Translations: [Anemia, unspecified] Onset: 11-07-2022 Episodic Deficiency and other anemia (1 source) Anemia, unspecified; Translations: [Anemia, unspecified type] Onset: 09-25-2023 Episodic E Codes: Fall (20 sources) Fall; Translations: [Unspecified fall, initial encounter] Onset: 11-07-2022 Resolved: 11-07-2022 11-07-2022 Episodic Esophageal disorders (20 sources) Zenker's diverticulum; 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, acquired] Onset: 10-16-2017 Resolved: 11-07-2022 10-16-2017 Episodic Fluid and electrolyte disorders (20 sources) Hyponatremia; Translations: [Hypo-osmolality and hyponatremia] Onset: 10-16-2017 10-16-2017 Episodic Fracture of upper limb (6 sources) Closed fracture of upper end of humerus; Translations: [Unspecified fracture of upper end of right humerus, initial encounter for closed fracture] Onset: 04-19-2024 04-16-2024 Episodic Mycoses (3 sources) Onychomycosis; Translations: [Tinea unguium] Onset: 10-29-2023 09-20-2023 Episodic Nutritional deficiencies (20 sources) Cobalamin deficiency; Translations: [Deficiency of other specified B group vitamins] Onset: 10-16-2017 10-16-2017 Episodic Other aftercare (1 source) Encounter for therapeutic drug level monitoring; Translations: [Medication monitoring encounter] Onset: 09-25-2023 Episodic Other circulatory disease (20 sources) History of cerebrovascular accident; Translations: [Personal history of transient ischemic attack (TIA), and cerebral infarction without residual deficits] Onset: 02-19-2019 02-19-2019 Episodic Other gastrointestinal disorders (2 sources) Dysphagia, unspecified; Translations: [Dysphagia, unspecified] Onset: 04-06-2024 Episodic Other injuries and conditions due to external causes (20 sources) At risk for falls ; Translations: [History of falling] Onset: 01-30-2018 Resolved: 03-07-2022 01-30-2018 Episodic Other skin disorders (2 sources) Localized swelling, mass and lump, neck; Translations: [Swelling, mass, or lump in head and neck] Onset: 04-06-2024 Episodic Residual codes; unclassified (20 sources) H/O: major vascular surgery; Translations: [Other specified postprocedural states] Onset: 09-25-2022 11-07-2022 Episodic Residual codes; unclassified (2 sources) Other specified postprocedural states; Translations: [Personal history of surgery to other organs] Onset: 11-07-2022 Episodic Screening and history of mental health and substance abuse codes (1 source) Encounter for screening examination for other mental health and behavioral disorders; Translations: [Encounter for screening examination for other mental health and behavioral disorders] Onset: 09-20-2023 Episodic Spondylosis; intervertebral disc disorders; other back problems (20 sources) Chronic thoracic back pain; Translations: [Pain in thoracic spine] Onset: 01-29-2018 01-29-2018 Episodic Results Test Name Value Interpretation Reference Range Facility Hemoglobin A1c percentageOrd ered By: Senia Billy on 08-11-2024 HbA1c (Bld) [Mass fraction] 6.0 % High <5.7 [facility] Comment on above: Normal < 5.7 % Predi abetic 5.7 - 6.4 % Diabetic >or= 6.5 % Please note range changes. TSH DL <= 0.005 mIU/L QnOrde red By: Senia Billy on 08-11-2024 TSH Qn 2.650 uIU/mL 0.300-4.200 [facility] Absolute lymphocyte countOrd ered By: Senai Billy on 06-30-2024 Lymphocytes Auto (Unsp spec) [#/Vol] 1.29 10*3/uL 0.83-4.51 [facility] Absolute neutrophil countOrd ered By: Senia Billy on 06-30-2024 Neutrophils (Bld) [#/Vol] 2.9 10*3/uL 2.0-7.7 [facility] Anion gap in Serum or Plasma Ordered By: Senia Billy on 06-30-2024 Anion gap [Moles/Vol] 10 mmol/L 5-15 [facility] Automated lymphocyte count a s percentage of total leukocytesOrdered By: Senia Billy on 06-30-2024 Lymphocytes/100 WBC Auto (Unsp spec) 26.8 % 19-41 [facility] BUN/creatinine ratioOrdered By: Senia Billy on 06-30-2024 Urea nitrogen/Creatinine [Mass ratio] 18.6 mg/mg 10-20 [facility] Basophil percentageOrdered B y: Senia Billy on 06-30-2024 Basophils/100 WBC (Bld) 0.4 % 0-1 [facility] Carbon dioxide, total [Moles /volume] in Central venous bloodOrdered By: Senia Billy on 06-30-2024 CO2 [Moles/Vol] 25.5 mmol/L 21.0-32.0 [facility] Chloride assayOrdered By: Constance sunilmikki Billy on 06-30-2024 Chloride [Moles/Vol] 99 mmol/L 98-108 [facility] Eosinophil percentageOrdered By: [facility] on 06-30-2024 Eosinophils/100 WBC (Bld) 2.9 % 0-5 [facility] Erythrocyte distribution wid th ratioOrdered By: [facility] on 06-30-2024 Erythrocyte distribution width (RBC) [Ratio] 15.6 % High 11.6-14.6 [facility] Erythrocyte distribution wid th standard deviationOrdered By: [facility] Goodmanbeatriz on 06-30-2024 Erythrocyte distribution width (RBC) [Ratio] 53.9 fl High 35.1-43.9 [facility] Glomerular filtration rate ( GFR) estimation/1.73 sq m using serum, plasma, or whole bOrdered By: sunilmonroewilson Billy on 06-30-2024 GFR/1.73 sq M.predicted among non-blacks MDRD (S/P/Bld) [Vol rate/Area] 65 mL/min/{1.73_m2} >60 [facility] Comment on above: mL/min/1.73m2 CKD-EP I Creatinine Equation (2020) Hematocrit Auto (Bld) [Volum e fraction]Ordered By: sunilmonroewilson Billy on 06-30-2024 Hematocrit (Bld) [Volume fraction] 31.8 % Low 37-47 [facility] Hemoglobin measurementOrdere d By: Senia Billy on 06-30-2024 Hemoglobin (Bld) [Mass/Vol] 10.3 g/dL Low 12.0-15.0 [facility] Immature granulocytes/100 WB C Auto (Bld)Ordered By: emma Billy on 06-30-2024 Immature granulocytes/100 WBC (Bld) 0.400 % 0.0-0.9 [facility] Comment on above: IG% - Immature Granu locytes (promyelocytes, myelocytes and metamyelocytes) > 1% indicates that a LEFT SHIFT is Present. MCV (mean corpuscular volume ) determinationOrdered By: Senia Billy on 06-30-2024 MCV (RBC) [Entitic vol] 94.4 fL 81-99 [facility] Mean corpuscular hemoglobin (MCH) determinationOrdered By: Senia Billy on 06-30-2024 MCH (RBC) [Entitic mass] 30.6 pg 27.0-32.0 [facility] Mean corpuscular hemoglobin concentration (MCHC) determinationOrdered By: Senia Billy on 06-30-2024 MCHC (RBC) [Mass/Vol] 32.4 g/dL 32-36 [facility] Mean platelet volume determi nationOrdered By: Senia Billy on 06-30-2024 Platelet mean volume (Bld) [Entitic vol] 9.1 fL 6.2-12.0 [facility] Monocyte percentageOrdered B y: Senia Billy on 06-30-2024 Monocytes/100 WBC (Bld) 8.7 % 0-10 [facility] Neutrophil percentageOrdered By: Senia Billy on 06-30-2024 Neutrophils/100 WBC (Bld) 60.8 % 47-70 [facility] Nucleated red blood cell per centageOrdered By: Senia Billy on 06-30-2024 Nucleated RBC/100 WBC (Bld) [Ratio] 0 % 0-5 [facility] Platelet countOrdered By: Constance Billy on 06-30-2024 Platelets (Bld) [#/Vol] 200 10*3/uL 150-450 [facility] Potassium measurement (mass/ volume)Ordered By: Senia Billy on 06-30-2024 Potassium (Unsp spec) [Mass/Vol] 4.0 mmol/L 3.3-5.1 [facility] RBC Auto (Bld) [#/Vol]Ordere d By: Senia Billy on 06-30-2024 RBC (Bld) [#/Vol] 3.37 10*6/uL Low 4.2-5.4 [facility] Serum creatinine measurement (mass/volume)Ordered By: Senia Billy on 06-30-2024 Creatinine [Mass/Vol] 0.85 mg/dL 0.70-1.20 [facility] Serum glucose measurement (m ass/volume)Ordered By: Senia Billy on 06-30-2024 Glucose [Mass/Vol] 84 mg/dL 70-99 [facility] Serum or plasma calcium soni urement (mass/volume)Ordered By: Senia Billy on 06-30-2024 Calcium [Mass/Vol] 8.6 mg/dL 7.6-11.0 [facility] Serum or plasma urea nitroge n measurement (mass/volume)Ordered By: Senia Billy on 06-30-2024 Urea nitrogen [Mass/Vol] 16 mg/dL 4-19 [facility] Sodium levelOrdered By: Beckie mikki Mariajose on 06-30-2024 Sodium [Moles/Vol] 134 mmol/L 133-145 [facility] White blood cell (WBC) count Ordered By: Senia Billy on 06-30-2024 WBC (Bld) [#/Vol] 4.8 10*3/uL 4.4-11.0 [facility] Absolute lymphocyte countOrd ered By: Senia Billy on 06-23-2024 Lymphocytes Auto (Unsp spec) [#/Vol] 1.63 10*3/uL 0.83-4.51 [facility] Absolute neutrophil countOrd ered By: Senia Billy on 06-23-2024 Neutrophils (Bld) [#/Vol] 2.5 10*3/uL 2.0-7.7 [facility] Anion gap in Serum or Plasma Ordered By: Senia Billy on 06-23-2024 Anion gap [Moles/Vol] 8 mmol/L 5-15 [facility] Automated lymphocyte count a s percentage of total leukocytesOrdered By: Senia Billy on 06-23-2024 Lymphocytes/100 WBC Auto (Unsp spec) 33.9 % 19-41 [facility] BUN/creatinine ratioOrdered By: Senia Billy on 06-23-2024 Urea nitrogen/Creatinine [Mass ratio] 18.1 mg/mg 10-20 [facility] Basophil percentageOrdered B y: Beckiecariwilson Billy on 06-23-2024 Basophils/100 WBC (Bld) 0.6 % 0-1 [facility] Carbon dioxide, total [Moles /volume] in Central venous bloodOrdered By: emma Billy on 06-23-2024 CO2 [Moles/Vol] 27.9 mmol/L 21.0-32.0 [facility] Chloride assayOrdered By: Constance sunilmikki Billy on 06-23-2024 Chloride [Moles/Vol] 100 mmol/L 98-108 [facility] Eosinophil percentageOrdered By: emma Billy on 06-23-2024 Eosinophils/100 WBC (Bld) 3.3 % 0-5 [facility] Erythrocyte distribution wid th ratioOrdered By: sunilmonroewilson Billy on 06-23-2024 Erythrocyte distribution width (RBC) [Ratio] 15.8 % High 11.6-14.6 [facility] Erythrocyte distribution wid th standard deviationOrdered By: sunilmonroewilson Goodmanlyssabeatriz on 06-23-2024 Erythrocyte distribution width (RBC) [Ratio] 57.2 fl High 35.1-43.9 [facility] Glomerular filtration rate ( GFR) estimation/1.73 sq m using serum, plasma, or whole bOrdered By: emma Billy on 06-23-2024 GFR/1.73 sq M.predicted among non-blacks MDRD (S/P/Bld) [Vol rate/Area] 65 mL/min/{1.73_m2} >60 [facility] Comment on above: mL/min/1.73m2 CKD-EP I Creatinine Equation (2020) Hematocrit Auto (Bld) [Volum e fraction]Ordered By: Senia Billy on 06-23-2024 Hematocrit (Bld) [Volume fraction] 31.3 % Low 37-47 [facility] Hemoglobin measurementOrdere d By: Senia Billy on 06-23-2024 Hemoglobin (Bld) [Mass/Vol] 9.8 g/dL Low 12.0-15.0 [facility] Immature granulocytes/100 WB C Auto (Bld)Ordered By: Senia Billy on 06-23-2024 Immature granulocytes/100 WBC (Bld) 0.400 % 0.0-0.9 [facility] Comment on above: IG% - Immature Granu locytes (promyelocytes, myelocytes and metamyelocytes) > 1% indicates that a LEFT SHIFT is Present. MCV (mean corpuscular volume ) determinationOrdered By: Senia Billy on 06-23-2024 MCV (RBC) [Entitic vol] 96.9 fL 81-99 [facility] Mean corpuscular hemoglobin (MCH) determinationOrdered By: [facility] on 06-23-2024 MCH (RBC) [Entitic mass] 30.3 pg 27.0-32.0 [facility] Mean corpuscular hemoglobin concentration (MCHC) determinationOrdered By: sunilmonroewilson Billy on 06-23-2024 MCHC (RBC) [Mass/Vol] 31.3 g/dL Low 32-36 [facility] Mean platelet volume determi nationOrdered By: Senia Billy on 06-23-2024 Platelet mean volume (Bld) [Entitic vol] 9.2 fL 6.2-12.0 [facility] Monocyte percentageOrdered B y: Senia Billy on 06-23-2024 Monocytes/100 WBC (Bld) 9.6 % 0-10 [facility] Neutrophil percentageOrdered By: sunilmonroewilson Billy on 06-23-2024 Neutrophils/100 WBC (Bld) 52.2 % 47-70 [facility] Nucleated red blood cell per centageOrdered By: Senia Billy on 06-23-2024 Nucleated RBC/100 WBC (Bld) [Ratio] 0 % 0-5 [facility] Platelet countOrdered By: Constance Billy on 06-23-2024 Platelets (Bld) [#/Vol] 204 10*3/uL 150-450 [facility] Potassium measurement (mass/ volume)Ordered By: Senia Billy on 06-23-2024 Potassium (Unsp spec) [Mass/Vol] 4.3 mmol/L 3.3-5.1 [facility] RBC Auto (Bld) [#/Vol]Ordere d By: Catherinewilson Goodmandixie on 06-23-2024 RBC (Bld) [#/Vol] 3.23 10*6/uL Low 4.2-5.4 [facility] Serum creatinine measurement (mass/volume)Ordered By: Senia Billy on 06-23-2024 Creatinine [Mass/Vol] 0.85 mg/dL 0.70-1.20 [facility] Serum glucose measurement (m ass/volume)Ordered By: Senia Billy on 06-23-2024 Glucose [Mass/Vol] 75 mg/dL 70-99 [facility] Serum or plasma calcium soni urement (mass/volume)Ordered By: Senia Billy on 06-23-2024 Calcium [Mass/Vol] 8.6 mg/dL 7.6-11.0 [facility] Serum or plasma urea nitroge n measurement (mass/volume)Ordered By: Senia Billy on 06-23-2024 Urea nitrogen [Mass/Vol] 15 mg/dL 4-19 [facility] Sodium levelOrdered By: Beckie mikki Rexlyssabeatriz on 06-23-2024 Sodium [Moles/Vol] 135 mmol/L 133-145 [facility] White blood cell (WBC) count Ordered By: Senia Billy on 06-23-2024 WBC (Bld) [#/Vol] 4.8 10*3/uL 4.4-11.0 [facility] Absolute lymphocyte countOrd ered By: Senia Billy on 06-16-2024 Lymphocytes Auto (Unsp spec) [#/Vol] 1.53 10*3/uL 0.83-4.51 [facility] Absolute neutrophil countOrd ered By: Senia Billy on 06-16-2024 Neutrophils (Bld) [#/Vol] 3.1 10*3/uL 2.0-7.7 [facility] Anion gap in Serum or Plasma Ordered By: Senia Billy on 06-16-2024 Anion gap [Moles/Vol] 9 mmol/L 5-15 [facility] Automated lymphocyte count a s percentage of total leukocytesOrdered By: Senia Billy on 06-16-2024 Lymphocytes/100 WBC Auto (Unsp spec) 28.5 % 19-41 [facility] BUN/creatinine ratioOrdered By: Senia Billy on 06-16-2024 Urea nitrogen/Creatinine [Mass ratio] 16.2 mg/mg 10-20 [facility] Basophil percentageOrdered B y: Senia Billy on 06-16-2024 Basophils/100 WBC (Bld) 0.4 % 0-1 [facility] Carbon dioxide, total [Moles /volume] in Central venous bloodOrdered By: Senia Billy on 06-16-2024 CO2 [Moles/Vol] 25.6 mmol/L 21.0-32.0 [facility] Chloride assayOrdered By: Constance sunilmikki Billy on 06-16-2024 Chloride [Moles/Vol] 99 mmol/L 98-108 [facility] Eosinophil percentageOrdered By: Senia Billy on 06-16-2024 Eosinophils/100 WBC (Bld) 3.0 % 0-5 [facility] Erythrocyte distribution wid th ratioOrdered By: Senia Billy on 06-16-2024 Erythrocyte distribution width (RBC) [Ratio] 15.9 % High 11.6-14.6 [facility] Erythrocyte distribution wid th standard deviationOrdered By: sunilmonroewilson Billy on 06-16-2024 Erythrocyte distribution width (RBC) [Ratio] 54.2 fl High 35.1-43.9 [facility] Glomerular filtration rate ( GFR) estimation/1.73 sq m using serum, plasma, or whole bOrdered By: Senia Billy on 06-16-2024 GFR/1.73 sq M.predicted among non-blacks MDRD (S/P/Bld) [Vol rate/Area] 60 mL/min/{1.73_m2} >60 [facility] Comment on above: mL/min/1.73m2 CKD-EP I Creatinine Equation (2020) Hematocrit Auto (Bld) [Volum e fraction]Ordered By: Senia Billy on 06-16-2024 Hematocrit (Bld) [Volume fraction] 31.0 % Low 37-47 [facility] Hemoglobin measurementOrdere d By: Senia Billy on 06-16-2024 Hemoglobin (Bld) [Mass/Vol] 10.1 g/dL Low 12.0-15.0 [facility] Immature granulocytes/100 WB C Auto (Bld)Ordered By: Senia Billy on 06-16-2024 Immature granulocytes/100 WBC (Bld) 0.600 % 0.0-0.9 [facility] Comment on above: IG% - Immature Granu locytes (promyelocytes, myelocytes and metamyelocytes) > 1% indicates that a LEFT SHIFT is Present. MCV (mean corpuscular volume ) determinationOrdered By: Senia Billy on 06-16-2024 MCV (RBC) [Entitic vol] 93.4 fL 81-99 [facility] Mean corpuscular hemoglobin (MCH) determinationOrdered By: Senia Billy on 06-16-2024 MCH (RBC) [Entitic mass] 30.4 pg 27.0-32.0 [facility] Mean corpuscular hemoglobin concentration (MCHC) determinationOrdered By: Senia Billy on 06-16-2024 MCHC (RBC) [Mass/Vol] 32.6 g/dL 32-36 [facility] Mean platelet volume determi nationOrdered By: Senia Billy on 06-16-2024 Platelet mean volume (Bld) [Entitic vol] 9.4 fL 6.2-12.0 [facility] Monocyte percentageOrdered B y: Senia Billy on 06-16-2024 Monocytes/100 WBC (Bld) 9.3 % 0-10 [facility] Neutrophil percentageOrdered By: Senia Billy on 06-16-2024 Neutrophils/100 WBC (Bld) 58.2 % 47-70 [facility] Nucleated red blood cell per centageOrdered By: Senia Billy on 06-16-2024 Nucleated RBC/100 WBC (Bld) [Ratio] 0 % 0-5 [facility] Platelet countOrdered By: Constance Billy on 06-16-2024 Platelets (Bld) [#/Vol] 231 10*3/uL 150-450 [facility] Potassium measurement (mass/ volume)Ordered By: Senia Billy on 06-16-2024 Potassium (Unsp spec) [Mass/Vol] 4.2 mmol/L 3.3-5.1 [facility] RBC Auto (Bld) [#/Vol]Ordere d By: Senia Billy on 06-16-2024 RBC (Bld) [#/Vol] 3.32 10*6/uL Low 4.2-5.4 [facility] Serum creatinine measurement (mass/volume)Ordered By: Senia Billy on 06-16-2024 Creatinine [Mass/Vol] 0.91 mg/dL 0.70-1.20 [facility] Serum glucose measurement (m ass/volume)Ordered By: Senia Billy on 06-16-2024 Glucose [Mass/Vol] 78 mg/dL 70-99 [facility] Serum or plasma calcium soni urement (mass/volume)Ordered By: Senia Billy on 06-16-2024 Calcium [Mass/Vol] 8.7 mg/dL 7.6-11.0 [facility] Serum or plasma urea nitroge n measurement (mass/volume)Ordered By: Senia Billy on 06-16-2024 Urea nitrogen [Mass/Vol] 15 mg/dL 4-19 [facility] Sodium levelOrdered By: Beckie Billy on 06-16-2024 Sodium [Moles/Vol] 133 mmol/L 133-145 [facility] White blood cell (WBC) count Ordered By: Senia Billy on 06-16-2024 WBC (Bld) [#/Vol] 5.4 10*3/uL 4.4-11.0 [facility] Absolute lymphocyte countOrd ered By: Senia Billy on 06-10-2024 Lymphocytes Auto (Unsp spec) [#/Vol] 1.61 10*3/uL 0.83-4.51 [facility] Absolute neutrophil countOrd ered By: Efemma Billy on 06-10-2024 Neutrophils (Bld) [#/Vol] 3.3 10*3/uL 2.0-7.7 [facility] Anion gap in Serum or Plasma Ordered By: Senia Billy on 06-10-2024 Anion gap [Moles/Vol] 8 mmol/L 5-15 [facility] Automated lymphocyte count a s percentage of total leukocytesOrdered By: Beckiemonroewilson Billy on 06-10-2024 Lymphocytes/100 WBC Auto (Unsp spec) 28.6 % 19-41 [facility] BUN/creatinine ratioOrdered By: sunilmonroewilson Billy on 06-10-2024 Urea nitrogen/Creatinine [Mass ratio] 20.9 mg/mg High 10-20 [facility] Basophil percentageOrdered B y: Senia Goodmanlyssabeatriz on 06-10-2024 Basophils/100 WBC (Bld) 0.4 % 0-1 [facility] Carbon dioxide, total [Moles /volume] in Central venous bloodOrdered By: Senia Billy on 06-10-2024 CO2 [Moles/Vol] 27.2 mmol/L 21.0-32.0 [facility] [facility] Ch[facility] assayOrdered By: sunilmikki Billy on 06-10-2024 Chloride [Moles/Vol] 98 mmol/L 98-108 [facility] Eosinophil percentageOrdered By: sunilmonroewilson Billy on 06-10-2024 Eosinophils/100 WBC (Bld) 3.7 % 0-5 [facility] Erythrocyte distribution wid th ratioOrdered By: Senia Billy on 06-10-2024 Erythrocyte distribution width (RBC) [Ratio] 16.0 % High 11.6-14.6 [facility] Erythrocyte distribution wid th standard deviationOrdered By: [facility] Center[facility] Billy on 06-10-2024 Erythrocyte distribution width (RBC) [Ratio] 55.4 fl High 35.1-43.9 [facility] Glomerular filtration rate ( GFR) estimation/1.73 sq m using serum, plasma, or whole bOrdered By: Senia Billy on 06-10-2024 GFR/1.73 sq M.predicted among non-blacks MDRD (S/P/Bld) [Vol rate/Area] 64 mL/min/{1.73_m2} >60 [facility] Comment on above: mL/min/1.73m2 CKD-EP I Creatinine Equation (2020) Hematocrit Auto (Bld) [Volum e fraction]Ordered By: Senia Billy on 06-10-2024 Hematocrit (Bld) [Volume fraction] 32.1 % Low 37-47 [facility] Hemoglobin measurementOrdere d By: Senia Billy on 06-10-2024 Hemoglobin (Bld) [Mass/Vol] 10.3 g/dL Low 12.0-15.0 [facility] Immature granulocytes/100 WB C Auto (Bld)Ordered By: Senia Billy on 06-10-2024 Immature granulocytes/100 WBC (Bld) 0.700 % 0.0-0.9 [facility] Comment on above: IG% - Immature Granu locytes (promyelocytes, myelocytes and metamyelocytes) > 1% indicates that a LEFT SHIFT is Present. MCV (mean corpuscular volume ) determinationOrdered By: Senia Billy on 06-10-2024 MCV (RBC) [Entitic vol] 94.4 fL 81-99 [facility] Mean corpuscular hemoglobin (MCH) determinationOrdered By: Senia Billy on 06-10-2024 MCH (RBC) [Entitic mass] 30.3 pg 27.0-32.0 [facility] Mean corpuscular hemoglobin concentration (MCHC) determinationOrdered By: Senia Billy on 06-10-2024 MCHC (RBC) [Mass/Vol] 32.1 g/dL 32-36 [facility] Mean platelet volume determi nationOrdered By: Senia Billy on 06-10-2024 Platelet mean volume (Bld) [Entitic vol] 9.1 fL 6.2-12.0 [facility] Monocyte percentageOrdered B y: Senia Billy on 06-10-2024 Monocytes/100 WBC (Bld) 8.0 % 0-10 [facility] Neutrophil percentageOrdered By: Senia Billy on 06-10-2024 Neutrophils/100 WBC (Bld) 58.6 % 47-70 [facility] Nucleated red blood cell per centageOrdered By: Senia Billy on 06-10-2024 Nucleated RBC/100 WBC (Bld) [Ratio] 0 % 0-5 [facility] Platelet countOrdered By: Constance Billy on 06-10-2024 Platelets (Bld) [#/Vol] 235 10*3/uL 150-450 [facility] Potassium measurement (mass/ volume)Ordered By: Senia Billy on 06-10-2024 Potassium (Unsp spec) [Mass/Vol] 4.2 mmol/L 3.3-5.1 [facility] RBC Auto (Bld) [#/Vol]Ordere d By: Senia Billy on 06-10-2024 RBC (Bld) [#/Vol] 3.40 10*6/uL Low 4.2-5.4 [facility] Serum creatinine measurement (mass/volume)Ordered By: Senia Billy on 06-10-2024 Creatinine [Mass/Vol] 0.86 mg/dL 0.70-1.20 [facility] Serum glucose measurement (m ass/volume)Ordered By: Senia Billy on 06-10-2024 Glucose [Mass/Vol] 86 mg/dL 70-99 [facility] Serum or plasma calcium soni urement (mass/volume)Ordered By: Senia Billy on 06-10-2024 Calcium [Mass/Vol] 8.9 mg/dL 7.6-11.0 [facility] Serum or plasma urea nitroge n measurement (mass/volume)Ordered By: Senia Rexdixie on 06-10-2024 Urea nitrogen [Mass/Vol] 18 mg/dL 4-19 [facility] Sodium levelOrdered By: Beckie Billy on 06-10-2024 Sodium [Moles/Vol] 133 mmol/L 133-145 [facility] White blood cell (WBC) count Ordered By: Senia Rexdixie on 06-10-2024 WBC (Bld) [#/Vol] 5.6 10*3/uL 4.4-11.0 [facility] Absolute lymphocyte countOrd ered By: Senia Friedmanbeatriz on 06-02-2024 Lymphocytes Auto (Unsp spec) [#/Vol] 1.48 10*3/uL 0.83-4.51 [facility] Absolute neutrophil countOrd ered By: Constancesunilcariwilson Goodmanlyssae on 06-02-2024 Neutrophils (Bld) [#/Vol] 3.4 10*3/uL 2.0-7.7 [facility] Anion gap in Serum or Plasma Ordered By: Senia Goodmanlyssae on 06-02-2024 Anion gap [Moles/Vol] 11 mmol/L 5-15 [facility] Automated lymphocyte count a s percentage of total leukocytesOrdered By: Senia Billy on 06-02-2024 Lymphocytes/100 WBC Auto (Unsp spec) 27.2 % 19-41 [facility] BUN/creatinine ratioOrdered By: Senia Goodmanlyssabeatriz on 06-02-2024 Urea nitrogen/Creatinine [Mass ratio] 22.2 mg/mg High 10-20 [facility] Basophil percentageOrdered B y: Beckiecariwilson Goodmanlyssabeatriz on 06-02-2024 Basophils/100 WBC (Bld) 0.4 % 0-1 [facility] Carbon dioxide, total [Moles /volume] in Central venous bloodOrdered By: Senia Billy on 06-02-2024 CO2 [Moles/Vol] 24.4 mmol/L 21.0-32.0 [facility] Chloride assayOrdered By: Constance Billy on 06-02-2024 Chloride [Moles/Vol] 97 mmol/L Low 98-108 [facility] Eosinophil percentageOrdered By: emma Goodmanlyssae on 06-02-2024 Eosinophils/100 WBC (Bld) 2.0 % 0-5 [facility] Erythrocyte distribution wid th ratioOrdered By: Senia Goodmanlyssae on 06-02-2024 Erythrocyte distribution width (RBC) [Ratio] 16.3 % High 11.6-14.6 [facility] Erythrocyte distribution wid th standard deviationOrdered By: Senia Goodmanlyssae on 06-02-2024 Erythrocyte distribution width (RBC) [Ratio] 58.1 fl High 35.1-43.9 [facility] Glomerular filtration rate ( GFR) estimation/1.73 sq m using serum, plasma, or whole bOrdered By: Senia Billy on 06-02-2024 GFR/1.73 sq M.predicted among non-blacks MDRD (S/P/Bld) [Vol rate/Area] 74 mL/min/{1.73_m2} >60 [facility] Comment on above: mL/min/1.73m2 CKD-EP I Creatinine Equation (2020) Hematocrit Auto (Bld) [Volum e fraction]Ordered By: Senia Billy on 06-02-2024 Hematocrit (Bld) [Volume fraction] 34.7 % Low 37-47 [facility] Hemoglobin measurementOrdere d By: Senia Billy on 06-02-2024 Hemoglobin (Bld) [Mass/Vol] 10.9 g/dL Low 12.0-15.0 [facility] Immature granulocytes/100 WB C Auto (Bld)Ordered By: Senia Billy on 06-02-2024 Immature granulocytes/100 WBC (Bld) 0.400 % 0.0-0.9 [facility] Comment on above: IG% - Immature Granu locytes (promyelocytes, myelocytes and metamyelocytes) > 1% indicates that a LEFT SHIFT is Present. MCV (mean corpuscular volume ) determinationOrdered By: Senia Billy on 06-02-2024 MCV (RBC) [Entitic vol] 96.1 fL 81-99 [facility] Magnesium measurement (mass/ volume)Ordered By: Senia Billy on 06-02-2024 Magnesium (Unsp spec) [Mass/Vol] 1.5 mg/dL 1.5-2.2 [facility] Mean corpuscular hemoglobin (MCH) determinationOrdered By: Senia Billy 06-02-2024 MCH (RBC) [Entitic mass] 30.2 pg 27.0-32.0 [facility] Mean corpuscular hemoglobin concentration (MCHC) determinationOrdered By: Senia Billy 06-02-2024 MCHC (RBC) [Mass/Vol] 31.4 g/dL Low 32-36 [facility] Mean platelet volume determi nationOrdered By: Senia Billy on 06-02-2024 Platelet mean volume (Bld) [Entitic vol] 9.2 fL 6.2-12.0 [facility] Monocyte percentageOrdered B y: Senia Billy on 06-02-2024 Monocytes/100 WBC (Bld) 7.3 % 0-10 [facility] Neutrophil percentageOrdered By: Senia Billy on 06-02-2024 Neutrophils/100 WBC (Bld) 62.7 % 47-70 [facility] Nucleated red blood cell per centageOrdered By: Senia Billy on 06-02-2024 Nucleated RBC/100 WBC (Bld) [Ratio] 0 % 0-5 [facility] Platelet countOrdered By: Constance Billy on 06-02-2024 Platelets (Bld) [#/Vol] 209 10*3/uL 150-450 [facility] Potassium measurement (mass/ volume)Ordered By: Senia Billy on 06-02-2024 Potassium (Unsp spec) [Mass/Vol] 4.2 mmol/L 3.3-5.1 [facility] RBC Auto (Bld) [#/Vol]Ordere d By: Senia Billy on 06-02-2024 RBC (Bld) [#/Vol] 3.61 10*6/uL Low 4.2-5.4 [facility] Serum creatinine measurement (mass/volume)Ordered By: Senia Billy on 06-02-2024 Creatinine [Mass/Vol] 0.77 mg/dL 0.70-1.20 [facility] Serum glucose measurement (m ass/volume)Ordered By: Senia Billy on 06-02-2024 Glucose [Mass/Vol] 84 mg/dL 70-99 [facility] Serum or plasma calcium soni urement (mass/volume)Ordered By: Senia Billy on 06-02-2024 Calcium [Mass/Vol] 8.8 mg/dL 7.6-11.0 [facility] Serum or plasma urea nitroge n measurement (mass/volume)Ordered By: Senia Billy on 06-02-2024 Urea nitrogen [Mass/Vol] 17 mg/dL 4-19 [facility] Sodium levelOrdered By: Beckie mikki Mariajose on 06-02-2024 Sodium [Moles/Vol] 132 mmol/L Low 133-145 [facility] White blood cell (WBC) count Ordered By: Senia Billy on 06-02-2024 WBC (Bld) [#/Vol] 5.5 10*3/uL 4.4-11.0 [facility] Absolute lymphocyte countOrd ered By: Senia Billy on 05-27-2024 Lymphocytes Auto (Unsp spec) [#/Vol] 1.05 10*3/uL 0.83-4.51 [facility] Absolute neutrophil countOrd ered By: Senia Billy on 05-27-2024 Neutrophils (Bld) [#/Vol] 3.1 10*3/uL 2.0-7.7 [facility] Anion gap in Serum or Plasma Ordered By: Senia Billy on 05-27-2024 Anion gap [Moles/Vol] 9 mmol/L 5-15 [facility] Automated lymphocyte count a s percentage of total leukocytesOrdered By: Senia Billy on 05-27-2024 Lymphocytes/100 WBC Auto (Unsp spec) 21.4 % 19-41 [facility] BUN/creatinine ratioOrdered By: Seina Billy on 05-27-2024 Urea nitrogen/Creatinine [Mass ratio] 16.3 mg/mg 10-20 [facility] Basophil percentageOrdered B y: Senia Billy on 05-27-2024 Basophils/100 WBC (Bld) 0.6 % 0-1 [facility] Carbon dioxide, total [Moles /volume] in Central venous bloodOrdered By: Senia Billy on 05-27-2024 CO2 [Moles/Vol] 25.8 mmol/L 21.0-32.0 [facility] Chloride assayOrdered By: Constance Billy on 05-27-2024 Chloride [Moles/Vol] 99 mmol/L 98-108 [facility] Eosinophil percentageOrdered By: Senia Billy on 05-27-2024 Eosinophils/100 WBC (Bld) 3.5 % 0-5 [facility] Erythrocyte distribution wid th ratioOrdered By: emma Billy on 05-27-2024 Erythrocyte distribution width (RBC) [Ratio] 16.9 % High 11.6-14.6 [facility] Erythrocyte distribution wid th standard deviationOrdered By: Beckiemonroewilson Billy on 05-27-2024 Erythrocyte distribution width (RBC) [Ratio] 59.1 fl High 35.1-43.9 [facility] Glomerular filtration rate ( GFR) estimation/1.73 sq m using serum, plasma, or whole bOrdered By: [facility] on 05-27-2024 GFR/1.73 sq M.predicted among non-blacks MDRD (S/P/Bld) [Vol rate/Area] 73 mL/min/{1.73_m2} >60 [facility] Comment on above: mL/min/1.73m2 CKD-EP I Creatinine Equation (2020) Hematocrit Auto (Bld) [Volum e fraction]Ordered By: emma Billy on 05-27-2024 Hematocrit (Bld) [Volume fraction] 30.4 % Low 37-47 [facility] Hemoglobin measurementOrdere d By: Senia Billy on 05-27-2024 Hemoglobin (Bld) [Mass/Vol] 9.6 g/dL Low 12.0-15.0 [facility] Immature granulocytes/100 WB C Auto (Bld)Ordered By: Senia Billy on 05-27-2024 Immature granulocytes/100 WBC (Bld) 0.600 % 0.0-0.9 [facility] Comment on above: IG% - Immature Granu locytes (promyelocytes, myelocytes and metamyelocytes) > 1% indicates that a LEFT SHIFT is Present. MCV (mean corpuscular volume ) determinationOrdered By: Senia Billy on 05-27-2024 MCV (RBC) [Entitic vol] 95.0 fL 81-99 [facility] Mean corpuscular hemoglobin (MCH) determinationOrdered By: Senia Billy on 05-27-2024 MCH (RBC) [Entitic mass] 30.0 pg 27.0-32.0 [facility] Mean corpuscular hemoglobin concentration (MCHC) determinationOrdered By: Senia Billy on 05-27-2024 MCHC (RBC) [Mass/Vol] 31.6 g/dL Low 32-36 [facility] Mean platelet volume determi nationOrdered By: Senia Billy on 05-27-2024 Platelet mean volume (Bld) [Entitic vol] 9.4 fL 6.2-12.0 [facility] Monocyte percentageOrdered B y: Senia Billy on 05-27-2024 Monocytes/100 WBC (Bld) 10.0 % 0-10 [facility] Neutrophil percentageOrdered By: Senia Billy on 05-27-2024 Neutrophils/100 WBC (Bld) 63.9 % 47-70 [facility] Nucleated red blood cell per centageOrdered By: Senia Billy on 05-27-2024 Nucleated RBC/100 WBC (Bld) [Ratio] 0 % 0-5 [facility] Platelet countOrdered By: Constance Billy on 05-27-2024 Platelets (Bld) [#/Vol] 215 10*3/uL 150-450 [facility] Potassium measurement (mass/ volume)Ordered By: Senia Billy on 05-27-2024 Potassium (Unsp spec) [Mass/Vol] 4.0 mmol/L 3.3-5.1 [facility] RBC Auto (Bld) [#/Vol]Ordere d By: Senia Billy on 05-27-2024 RBC (Bld) [#/Vol] 3.20 10*6/uL Low 4.2-5.4 [facility] Serum creatinine measurement (mass/volume)Ordered By: Senia Billy on 05-27-2024 Creatinine [Mass/Vol] 0.77 mg/dL 0.70-1.20 [facility] Serum glucose measurement (m ass/volume)Ordered By: Senia Billy on 05-27-2024 Glucose [Mass/Vol] 72 mg/dL 70-99 [facility] Serum or plasma calcium soni urement (mass/volume)Ordered By: Senia Billy on 05-27-2024 Calcium [Mass/Vol] 8.3 mg/dL 7.6-11.0 [facility] Serum or plasma urea nitroge n measurement (mass/volume)Ordered By: Senia Billy on 05-27-2024 Urea nitrogen [Mass/Vol] 13 mg/dL 4-19 [facility] Sodium levelOrdered By: Beckie mikki Mariajose on 05-27-2024 Sodium [Moles/Vol] 134 mmol/L 133-145 [facility] White blood cell (WBC) count Ordered By: Senia Billy on 05-27-2024 WBC (Bld) [#/Vol] 4.9 10*3/uL 4.4-11.0 [facility] Absolute lymphocyte countOrd ered By: Senia Billy on 05-20-2024 Lymphocytes Auto (Unsp spec) [#/Vol] 1.62 10*3/uL 0.83-4.51 [facility] Absolute neutrophil countOrd ered By: Senia Billy on 05-20-2024 Neutrophils (Bld) [#/Vol] 3.2 10*3/uL 2.0-7.7 [facility] Anion gap in Serum or Plasma Ordered By: Senia Billy on 05-20-2024 Anion gap [Moles/Vol] 9 mmol/L 5-15 [facility] Automated lymphocyte count a s percentage of total leukocytesOrdered By: Senia Billy on 05-20-2024 Lymphocytes/100 WBC Auto (Unsp spec) 28.6 % 19-41 [facility] BUN/creatinine ratioOrdered By: Senia Billy on 05-20-2024 Urea nitrogen/Creatinine [Mass ratio] 18.6 mg/mg 10-20 [facility] Basophil percentageOrdered B y: Senia Billy on 05-20-2024 Basophils/100 WBC (Bld) 0.7 % 0-1 [facility] Carbon dioxide, total [Moles /volume] in Central venous bloodOrdered By: Senia Billy on 05-20-2024 CO2 [Moles/Vol] 25.2 mmol/L 21.0-32.0 [facility] Chloride assayOrdered By: Constance Billy on 05-20-2024 Chloride [Moles/Vol] 98 mmol/L 98-108 [facility] Eosinophil percentageOrdered By: Senia Billy on 05-20-2024 Eosinophils/100 WBC (Bld) 3.5 % 0-5 [facility] Erythrocyte distribution wid th ratioOrdered By: Senia Billy on 05-20-2024 Erythrocyte distribution width (RBC) [Ratio] 16.7 % High 11.6-14.6 [facility] Erythrocyte distribution wid th standard deviationOrdered By: Senia Billy on 05-20-2024 Erythrocyte distribution width (RBC) [Ratio] 59.4 fl High 35.1-43.9 [facility] Glomerular filtration rate ( GFR) estimation/1.73 sq m using serum, plasma, or whole bOrdered By: Senia Billy on 05-20-2024 GFR/1.73 sq M.predicted among non-blacks MDRD (S/P/Bld) [Vol rate/Area] 62 mL/min/{1.73_m2} >60 [facility] Comment on above: mL/min/1.73m2 CKD-EP I Creatinine Equation (2020) Hematocrit Auto (Bld) [Volum e fraction]Ordered By: Senia Billy on 05-20-2024 Hematocrit (Bld) [Volume fraction] 31.6 % Low 37-47 [facility] Hemoglobin measurementOrdere d By: Senia Billy on 05-20-2024 Hemoglobin (Bld) [Mass/Vol] 9.9 g/dL Low 12.0-15.0 [facility] Immature granulocytes/100 WB C Auto (Bld)Ordered By: Senia Billy on 05-20-2024 Immature granulocytes/100 WBC (Bld) 0.500 % 0.0-0.9 [facility] Comment on above: IG% - Immature Granu locytes (promyelocytes, myelocytes and metamyelocytes) > 1% indicates that a LEFT SHIFT is Present. MCV (mean corpuscular volume ) determinationOrdered By: Senia Billy on 05-20-2024 MCV (RBC) [Entitic vol] 96.3 fL 81-99 [facility] Mean corpuscular hemoglobin (MCH) determinationOrdered By: Senia Goodmanlyssabeatriz on 05-20-2024 MCH (RBC) [Entitic mass] 30.2 pg 27.0-32.0 [facility] Mean corpuscular hemoglobin concentration (MCHC) determinationOrdered By: Senia Billy on 05-20-2024 MCHC (RBC) [Mass/Vol] 31.3 g/dL Low 32-36 [facility] Mean platelet volume determi nationOrdered By: Senia Billy on 05-20-2024 Platelet mean volume (Bld) [Entitic vol] 9.0 fL 6.2-12.0 [facility] Monocyte percentageOrdered B y: Beckiecariwilson Goodmanlyssabeatriz on 05-20-2024 Monocytes/100 WBC (Bld) 10.2 % High 0-10 [facility] Neutrophil percentageOrdered By: Constanceemma Goodmanlyssabeatriz on 05-20-2024 Neutrophils/100 WBC (Bld) 56.5 % 47-70 [facility] Nucleated red blood cell per centageOrdered By: Senia Goodmanlyssabeatriz on 05-20-2024 Nucleated RBC/100 WBC (Bld) [Ratio] 0 % 0-5 [facility] Platelet countOrdered By: Constance mimawilson Billy on 05-20-2024 Platelets (Bld) [#/Vol] 225 10*3/uL 150-450 [facility] Potassium measurement (mass/ volume)Ordered By: Senia Billy on 05-20-2024 Potassium (Unsp spec) [Mass/Vol] 4.3 mmol/L 3.3-5.1 [facility] RBC Auto (Bld) [#/Vol]Ordere d By: Senia Billy on 05-20-2024 RBC (Bld) [#/Vol] 3.28 10*6/uL Low 4.2-5.4 [facility] Serum creatinine measurement (mass/volume)Ordered By: Senia Rexdixie on 05-20-2024 Creatinine [Mass/Vol] 0.89 mg/dL 0.70-1.20 [facility] Serum glucose measurement (m ass/volume)Ordered By: Catherinewilson Goodmanlyssabeatriz on 05-20-2024 Glucose [Mass/Vol] 89 mg/dL 70-99 [facility] Serum or plasma calcium soni urement (mass/volume)Ordered By: Catherinewilson Goodmanlyssabeatriz on 05-20-2024 Calcium [Mass/Vol] 8.7 mg/dL 7.6-11.0 [facility] Serum or plasma urea nitroge n measurement (mass/volume)Ordered By: Constancesunilmonroewilson Goodmanlyssabeatriz on 05-20-2024 Urea nitrogen [Mass/Vol] 17 mg/dL 4-19 [facility] Sodium levelOrdered By: Constancesunil mikki Rexlyssabeatriz on 05-20-2024 Sodium [Moles/Vol] 133 mmol/L 133-145 [facility] White blood cell (WBC) count Ordered By: Senia Rexlyssabeatriz on 05-20-2024 WBC (Bld) [#/Vol] 5.7 10*3/uL 4.4-11.0 [facility] XR SHOULDER MINIMUM 2 VIEWS RIGHTon 04-28-2024 XR SHOULDER MINIMUM 2 VIEWS RIGHT ORIGINAL EXAMINATION: TWO XRAY VIEWS OF THE RIGHT SHOULDER04/28/2024 2:07 pm COMPARISON: None HISTORY: ORDERING SYSTEM PROVIDED HISTORY: Reason for Exam: Fracture f/u FINDINGS: A surgical neck fracture of the right humerus is identified.. Medial angulation of the distal fragment noted. There is some over-riding of the fracture fragments by up to 2 cm. Medial displacement of the distal humerus by approximately 2.4 cm noted.. Significant degenerative changes are noted of the acromioclavicular joint. There is a questionable fracture of the greater tuberosity/anatomic neck region, only visible on the Y-view. No suspicious osseous lesions. The included thoracic structures are unremarkable. Median sternotomy wires are noted and intact. No soft tissue calcifications or swelling. IMPRESSION: Moderately displaced surgical neck fracture of the right humerus with significant malalignment of the fracture fragments. Questionable minimally offset fracture of the anatomic neck/greater tuberosity region is visible only on the Y-view I have personally reviewed the images of this examination and agree with the resident's findings and interpretation. Interpreted by: Jevon Gonzalez MD Preliminary Report By: Tonya Shelton Electronically signed By Jevon Gonzalez MD Dictated Date: 04/28/2024 2:11:17 PM Prelim Date: 04/28/2024 2:27:51 PM Sign Date: 04/28/2024 2:27:51 PM Ordering Provider: GAVIN SHERWOOD [facility] .GFRon 04-20-2024 Estimated Glomerular Filtration Rate 61 ml/min/1.73sqm [facility] Comment on above: Result Comment: Stages of Chronic Kidney Disease (CKD) Stage Description eGFR(ml/min/1.73 sq.m.) CKD 1 Normal kidney function or >=90 normal kindney function with possible kidney damage (ex. Proteinuria) CKD 2 Kidney damage with mild loss 60-89 of kidney function CKD 3a Mild to moderate loss of kidney 45-59 function CKD 3b Moderate to severe loss of 30-44 of kindey function CKD 4 Severe loss of kidney function 15-29 CKD 5 Kidney failure <15 Note: (go live 2024) the eGFR calculation was updated to the 2020 CKD-EPI creatinine equation without a race factor to calculate the eGFR results. Performed By: #### G FR, MG, BMP #### [id number] [place], [place] [address] BMPon 04-20-2024 BUN/Creatinine Ratio 20 ratio Normal 7-27 [facility] Comment on above: Performed By: #### G FR, MG, BMP #### [address] [place], [place] [address] Calcium [Mass/Vol] 8.9 mg/dL Normal 8.4-10.2 [facility] Comment on above: Performed By: #### G FR, MG, BMP #### [id number] [place], [place] [address] Chloride [Moles/Vol] 93 mmol/L Low 98-107 [facility] Comment on above: Performed By: #### G FR, MG, BMP #### [address] [address] CO2 [Moles/Vol] 30 mmol/L Normal 23-31 [facility] Comment on above: Performed By: #### G FR, MG, BMP #### [address] [address] Creatinine [Mass/Vol] 0.90 mg/dL Normal 0.55-1.02 [facility] Comment on above: Result Comment: Test ing performed on Siemens Dimension EXL analyzer using a modified kinetic Nate technique. Performed By: #### G FR, MG, BMP #### [address] [address] Electrolyte Balance 4.0 mEq/L Normal 4.0-15.0 [facility] Comment on above: Performed By: #### G FR, MG, BMP #### [address] [address] Glucose [Mass/Vol] 99 mg/dL Normal 83-110 [facility] Comment on above: Performed By: #### G FR, MG, BMP #### [address] [address] Potassium [Moles/Vol] 4.0 mmol/L Normal 3.5-5.1 [facility] Comment on above: Performed By: #### G FR, MG, BMP #### [address] [address] Sodium [Moles/Vol] 127 mmol/L Low 136-145 [facility] Comment on above: Performed By: #### G FR, MG, BMP #### [address] [address] Urea nitrogen [Mass/Vol] 18 mg/dL Normal 7-18 [facility] Comment on above: Performed By: #### G FR, MG, BMP #### [address] [address] Basic Metabolic Profile (BMP )on 02-24-2025 BUN Normal 7-18 [facility] Comment on above: Result Comment: Canc elled via OM: Order cancelled - Patient discharged Performed By: #### L 500.2500 #### [facility] [address] [place], [address] BUN/CRE Normal 10-20 [facility] Comment on above: Result Comment: Canc elled via OM: Order cancelled - Patient discharged Performed By: #### L 500.2500 #### [facility] [address] [place], [address] CA,Total Normal 8.5-10.1 [facility] Comment on above: Result Comment: Canc elled via OM: Order cancelled - Patient discharged Performed By: #### L 500.2500 #### [facility] [address] [place], [address] CL Normal 98-107 [facility] Comment on above: Result Comment: Canc elled via OM: Order cancelled - Patient discharged Performed By: #### L 500.2500 #### [facility] [address] [place], [address] CO2 Normal 21.0-32.0 [facility] Comment on above: Result Comment: Canc elled via OM: Order cancelled - Patient discharged Performed By: #### L 500.2500 #### [facility] [address] [place], [address] CREAT,SERUM Normal 0.55-1.02 [facility] Comment on above: Result Comment: Canc elled via OM: Order cancelled - Patient discharged Performed By: #### L 500.2500 #### [facility] [address] [place], [address] EST GFR Normal >60 [facility] Comment on above: Result Comment: Canc elled via OM: Order cancelled - Patient discharged Performed By: #### L 500.2500 #### [facility] [address] [place], [address] EST GFR - AA Normal >60 [facility] Comment on above: Result Comment: Canc elled via OM: Order cancelled - Patient discharged Performed By: #### L 500.2500 #### [facility] [address] [place], [address] GAP Normal 5-15 [facility] Comment on above: Result Comment: Canc elled via OM: Order cancelled - Patient discharged Performed By: #### L 500.2500 #### [facility] [address] [place], [address] GLU Normal 74-106 [facility] Comment on above: Result Comment: Canc elled via OM: Order cancelled - Patient discharged Performed By: #### L 500.2500 #### [facility] [address] [place], [address] Potassium Normal 3.5-5.1 [facility] Comment on above: Result Comment: Canc elled via OM: Order cancelled - Patient discharged Performed By: #### L 500.2500 #### [facility] [address] [place], [address] Basic Metabolic Profile (BMP) Normal 136-145 [facility] Comment on above: Result Comment: Canc elled via OM: Order cancelled - Patient discharged Performed By: #### L 500.2500 #### [facility] [address] [place], [address] MGon 04-20-2024 Magnesium [Mass/Vol] 1.5 mg/dL Low 1.8-2.4 [facility] Comment on above: Performed By: #### G FR, MG, BMP #### [address] [address] Basic Metabolic Profile (BMP )on 04-19-2024 BUN/CRE 21.3 RATIO High 10-20 [facility] Comment on above: Performed By: #### L 500.2500 #### [facility] [address] [place], [address] CA,Total 8.8 mg/dL Normal 8.5-10.1 [facility] Comment on above: Performed By: #### L 500.2500 #### [facility] [address] [place], [address] Chloride [Moles/Vol] 96 mmol/L Low 98-107 [facility] Comment on above: Performed By: #### L 500.2500 #### [facility] [address] [place], [address] CO2 [Moles/Vol] 25.0 mmol/L Normal 21.0-32.0 [facility] Comment on above: Performed By: #### L 500.2500 #### [facility] [address] [place], [address] Creatinine [Mass/Vol] 0.80 mg/dL Normal 0.55-1.02 [facility] Comment on above: Result Comment: The validity of the calculated GFR GFRAA in patients over 70 years has not been determined. Clinical correlation is essential. Performed By: #### L 500.2500 #### [facility] [address] [place], [address] ECRCL 48.42 ml/min Normal [facility] Comment on above: Performed By: #### L 500.2500 #### [facility] [address] [place], [address] EST GFR - AA 87 mL/min Normal >60 [facility] Comment on above: Result Comment: Afri can Swedish GFR Calc Performed By: #### L 500.2500 #### [facility] [address] [place], [address] GAP 7 Normal 5-15 [facility] Comment on above: Performed By: #### L 500.2500 #### [facility] [address] [place], [address] GFR/1.73 sq M.predicted among non-blacks MDRD (S/P/Bld) [Vol rate/Area] 72 mL/min/{1.73_m2} Normal >60 [facility] Comment on above: Result Comment: Non- GFR Calc Performed By: #### L 500.2500 #### [facility] [address] [place], [address] Glucose [Mass/Vol] 129 mg/dL High 74-106 [facility] Comment on above: Result Comment: Fast ing Glucose result greater than or equal to 126 mg/dL suggests DIABETES MELLITUS per A.D.A. criteria. Performed By: #### L 500.2500 #### [facility] [address] [place], [address] Potassium [Moles/Vol] 4.0 mmol/L Normal 3.5-5.1 [facility] Comment on above: Performed By: #### L 500.2500 #### [facility] [address] [place], [address] Sodium [Moles/Vol] 128 mmol/L Low 136-145 [facility] Comment on above: Performed By: #### L 500.2500 #### [facility] [address] [place], [address] Urea nitrogen [Mass/Vol] 17 mg/dL Normal 7-18 [facility] Comment on above: Performed By: #### L 500.2500 #### [facility] [address] [place], [address] Bedside Glucoseon 04-19-2024 FINGERSTICK GLU 144 mg/dL High 74-106 [facility] Comment on above: Result Comment: CANDY ZAMORA OF PATIENT CARE PER NURSING PROTOCOL Performed By: #### L 501.080 #### [facility] [address] [place], [address] FINGERSTICK GLU 118 mg/dL High 74-106 [facility] Comment on above: Result Comment: CANDY ZAMORA OF PATIENT CARE PER NURSING PROTOCOL Performed By: #### L 501.080 #### [facility] [address] [place], [address] CBC-Complete Blood Cnt No Di ffon 04-19-2024 Erythrocyte distribution width (RBC) [Ratio] 15.6 % High 11.6-14.6 [facility] Comment on above: Performed By: #### L 500.2500 #### [facility] [address] [place], [address] Hematocrit (Bld) [Volume fraction] 27.6 % Low 37-47 [facility] Comment on above: Performed By: #### L 500.2500 #### [facility] [address] [place], [address] Hemoglobin (Bld) [Mass/Vol] 8.8 g/dL Low 12.0-15.0 [facility] Comment on above: Performed By: #### L 500.2500 #### [facility] [address] [place], [address] MCH (RBC) [Entitic mass] 28.9 pg Normal 27.0-32.0 [facility] Comment on above: Performed By: #### L 500.2500 #### [facility] [address] [place], [address] MCHC (RBC) [Mass/Vol] 31.9 g/dL Low 32-36 [facility] Comment on above: Performed By: #### L 500.2500 #### [facility] [address] [place], [address] MCV (RBC) [Entitic vol] 90.8 fL Normal 81-99 [facility] Comment on above: Performed By: #### L 500.2500 #### [facility] [address] [place], [address] Platelet mean volume (Bld) [Entitic vol] 9.2 fL Normal 6.2-12.0 [facility] Comment on above: Performed By: #### L 500.2500 #### [facility] [address] [place], [address] Platelets (Bld) [#/Vol] 187 10*3/uL Normal 150-450 [facility] Comment on above: Performed By: #### L 500.2500 #### [facility] [address] [place], [address] RBC (Bld) [#/Vol] 3.04 10*6/uL Low 4.2-5.4 [facility] Comment on above: Performed By: #### L 500.2500 #### [facility] [address] [place], [address] RDW SD 51.6 fl High 35.1-43.9 [facility] Comment on above: Performed By: #### L 500.2500 #### [facility] [address] [place], [address] WBC (Bld) [#/Vol] 7.3 10*3/uL Normal 4.4-11.0 [facility] Comment on above: Performed By: #### L 500.2500 #### [facility] [address] [place], [address] Basic Metabolic Profile (BMP )on 04-18-2024 BUN/CRE 19.8 RATIO Normal 10-20 [facility] Comment on above: Performed By: #### L 500.2500 #### [facility] [address] [place], [address] CA,Total 8.4 mg/dL Low 8.5-10.1 [facility] Comment on above: Performed By: #### L 500.2500 #### [facility] [address] [place], [address] Chloride [Moles/Vol] 93 mmol/L Low 98-107 [facility] Comment on above: Performed By: #### L 500.2500 #### [facility] [address] [place], [address] CO2 [Moles/Vol] 24.0 mmol/L Normal 21.0-32.0 [facility] Comment on above: Performed By: #### L 500.2500 #### [facility] [address] [place], [address] Creatinine [Mass/Vol] 1.01 mg/dL Normal 0.55-1.02 [facility] Comment on above: Result Comment: The validity of the calculated GFR GFRAA in patients over 70 years has not been determined. Clinical correlation is essential. Performed By: #### L 500.2500 #### [facility] [address] [place], [address] ECRCL 35.35 ml/min Normal [facility] Comment on above: Performed By: #### L 500.2500 #### [facility] [address] [place], [address] EST GFR - AA 66 mL/min Normal >60 [facility] Comment on above: Result Comment: Afri can Swedish GFR Calc Performed By: #### L 500.2500 #### [facility] [address] [place], [address] GAP 12 Normal 5-15 [facility] Comment on above: Performed By: #### L 500.2500 #### [facility] [address] [place], [address] GFR/1.73 sq M.predicted among non-blacks MDRD (S/P/Bld) [Vol rate/Area] 55 mL/min/{1.73_m2} Low >60 [facility] Comment on above: Result Comment: Non- GFR Calc Performed By: #### L 500.2500 #### [facility] [address] [place], [address] Glucose [Mass/Vol] 134 mg/dL High 74-106 [facility] Comment on above: Result Comment: Fast ing Glucose result greater than or equal to 126 mg/dL suggests DIABETES MELLITUS per A.D.A. criteria. Performed By: #### L 500.2500 #### [facility] [address] [place], [address] Potassium [Moles/Vol] 4.4 mmol/L Normal 3.5-5.1 [facility] Comment on above: Performed By: #### L 500.2500 #### [facility] [address] [place], [address] Sodium [Moles/Vol] 129 mmol/L Low 136-145 [facility] Comment on above: Performed By: #### L 500.2500 #### [facility] [address] [place], [address] Urea nitrogen [Mass/Vol] 20 mg/dL High 7-18 [facility] Comment on above: Performed By: #### L 500.2500 #### [facility] [address] [place], [address] Bedside Glucoseon 04-18-2024 FINGERSTICK GLU 128 mg/dL High 74-106 [facility] Comment on above: Result Comment: CANDY GEMENT OF PATIENT CARE PER NURSING PROTOCOL Performed By: #### L 501.080 #### [facility] [address] [place], [address] FINGERSTICK GLU 141 mg/dL High 74-106 [facility] Comment on above: Result Comment: CANDY GEMENT OF PATIENT CARE PER NURSING PROTOCOL Performed By: #### L 501.080 #### [facility] [address] [place], [address] FINGERSTICK GLU 133 mg/dL High 74-106 [facility] Comment on above: Result Comment: CANDY ZAMORA OF PATIENT CARE PER NURSING PROTOCOL Performed By: #### L 501.080 #### [facility] [address] [place], [address] Basic Metabolic Profile (BMP )on 04-17-2024 BUN/CRE 11.7 RATIO Normal 10-20 [facility] Comment on above: Performed By: #### L 500.2500 #### [facility] [address] [place], [address] CA,Total 8.7 mg/dL Normal 8.5-10.1 [facility] Comment on above: Performed By: #### L 500.2500 #### [facility] [address] [place], [address] Chloride [Moles/Vol] 92 mmol/L Low 98-107 [facility] Comment on above: Performed By: #### L 500.2500 #### [facility] [address] [place], [address] CO2 [Moles/Vol] 26.0 mmol/L Normal 21.0-32.0 [facility] Comment on above: Performed By: #### L 500.2500 #### [facility] [address] [place], [address] Creatinine [Mass/Vol] 0.94 mg/dL Normal 0.55-1.02 [facility] Comment on above: Result Comment: The validity of the calculated GFR GFRAA in patients over 70 years has not been determined. Clinical correlation is essential. Performed By: #### L 500.2500 #### [facility] [address] [place], [address] ECRCL 41.47 ml/min Normal [facility] Comment on above: Performed By: #### L 500.2500 #### [facility] [address] [place], [address] EST GFR - AA 72 mL/min Normal >60 [facility] Comment on above: Result Comment: Afri can Swedish GFR Calc Performed By: #### L 500.2500 #### [facility] [address] [place], [address] GAP 10 Normal 5-15 [facility] Comment on above: Performed By: #### L 500.2500 #### [facility] [address] [place], [address] GFR/1.73 sq M.predicted among non-blacks MDRD (S/P/Bld) [Vol rate/Area] 59 mL/min/{1.73_m2} Low >60 [facility] Comment on above: Result Comment: Non- GFR Calc Performed By: #### L 500.2500 #### [facility] [address] [place], [address] Glucose [Mass/Vol] 140 mg/dL High 74-106 [facility] Comment on above: Result Comment: Fast ing Glucose result greater than or equal to 126 mg/dL suggests DIABETES MELLITUS per A.D.A. criteria. Performed By: #### L 500.2500 #### [facility] [address] [place], [address] Potassium [Moles/Vol] 4.0 mmol/L Normal 3.5-5.1 [facility] Comment on above: Performed By: #### L 500.2500 #### [facility] [address] [place], [address] Sodium [Moles/Vol] 128 mmol/L Low 136-145 [facility] Comment on above: Performed By: #### L 500.2500 #### [facility] [address] [place], [address] Urea nitrogen [Mass/Vol] 11 mg/dL Normal 7-18 [facility] Comment on above: Performed By: #### L 500.2500 #### [facility] [address] [place], [address] Bedside Glucoseon 04-17-2024 FINGERSTICK GLU 161 mg/dL High 74-106 [facility] Comment on above: Result Comment: CANDY GEMENT OF PATIENT CARE PER NURSING PROTOCOL Performed By: #### L 501.080 #### [facility] [address] [place], [address] FINGERSTICK GLU 194 mg/dL High 74-106 [facility] Comment on above: Result Comment: CANDY GEMENT OF PATIENT CARE PER NURSING PROTOCOL Performed By: #### L 501.080 #### [facility] [address] [place], [address] FINGERSTICK GLU 190 mg/dL High 74-106 [facility] Comment on above: Result Comment: CANDY GEMENT OF PATIENT CARE PER NURSING PROTOCOL Performed By: #### L 501.080 #### [facility] [address] [place], [address] FINGERSTICK GLU 188 mg/dL High -106 [facility] Comment on above: Result Comment: CANDY GEMENT OF PATIENT CARE PER NURSING PROTOCOL Performed By: #### L 501.080 #### [facility] [address] [place], [address] CBC W/Diff, Automatedon - Absolute Lymph 0.64 X10 3/uL Low 0.83-4.51 [facility] Comment on above: Performed By: #### L 500.4050, L100.0100 #### [facility] [address] [place], [address] Absolute Neut 8.3 X10 3/uL High 2.0-7.7 [facility] Comment on above: Performed By: #### L 500.4050, L100.0100 #### [facility] [address] [place], [address] Basophils/100 WBC (Bld) 0.3 % Normal 0-1 [facility] Comment on above: Performed By: #### L 500.4050, L100.0100 #### [facility] [address] [place], [address] Eosinophils/100 WBC (Bld) 0.0 % Normal 0-5 [facility] Comment on above: Performed By: #### L 500.4050, L100.0100 #### [facility] [address] [place], [address] Erythrocyte distribution width (RBC) [Ratio] 15.4 % High 11.6-14.6 [facility] Comment on above: Performed By: #### L 500.4050, L100.0100 #### [facility] [address] [place], [address] Hematocrit (Bld) [Volume fraction] 32.3 % Low 37-47 [facility] Comment on above: Performed By: #### L 500.4050, L100.0100 #### [facility] [address] [place], [address] Hemoglobin (Bld) [Mass/Vol] 10.3 g/dL Low 12.0-15.0 [facility] Comment on above: Performed By: #### L 500.4050, L100.0100 #### [facility] [address] [place], [address] IG% 0.700 Normal 0.0-0.9 [facility] Comment on above: Result Comment: IG% - Immature Granulocytes (promyelocytes, myelocytes and metamyelocytes) > 1% indicates that a LEFT SHIFT is Present. Performed By: #### L 500.4050, L100.0100 #### [facility] [address] [place], [address] Lymphocytes/100 WBC (Bld) 6.6 % Low 19-41 [facility] Comment on above: Performed By: #### L 500.4050, L100.0100 #### [facility] [address] [place], [address] MCH (RBC) [Entitic mass] 28.5 pg Normal 27.0-32.0 [facility] Comment on above: Performed By: #### L 500.4050, L100.0100 #### [facility] [address] [place], [address] MCHC (RBC) [Mass/Vol] 31.9 g/dL Low 32-36 [facility] Comment on above: Performed By: #### L 500.4050, L100.0100 #### [facility] [address] [place], [address] MCV (RBC) [Entitic vol] 89.2 fL Normal 81-99 [facility] Comment on above: Performed By: #### L 500.4050, L100.0100 #### [facility] [address] [place], [address] Monocytes/100 WBC (Bld) 6.3 % Normal 0-10 [facility] Comment on above: Performed By: #### L 500.4050, L100.0100 #### [facility] [address] [place], [address] Neutrophils/100 WBC (Bld) 86.1 % High 47-70 [facility] Comment on above: Performed By: #### L 500.4050, L100.0100 #### [facility] [address] [place], [address] Nucleated RBC (Bld) [#/Vol] 0 10*3/uL Normal 0-5 [facility] Comment on above: Performed By: #### L 500.4050, L100.0100 #### [facility] [address] [place], [address] Platelet mean volume (Bld) [Entitic vol] 9.2 fL Normal 6.2-12.0 [facility] Comment on above: Performed By: #### L 500.4050, L100.0100 #### [facility] [address] [place], [address] Platelets (Bld) [#/Vol] 248 10*3/uL Normal 150-450 [facility] Comment on above: Performed By: #### L 500.4050, L100.0100 #### [facility] [address] [place], [address] RBC (Bld) [#/Vol] 3.62 10*6/uL Low 4.2-5.4 [facility] Comment on above: Performed By: #### L 500.4050, L100.0100 #### [facility] [address] [place], [address] RDW SD 50.3 fl High 35.1-43.9 [facility] Comment on above: Performed By: #### L 500.4050, L100.0100 #### [facility] [facility] [address] [place], [address] WBC (Bld) [#/Vol] 9.7 10*3/uL Normal 4.4-11.0 [facility] Comment on above: Performed By: #### L 500.4050, L100.0100 #### [facility] [address] [place], [address] Absolute Lymph 1.09 X10 3/uL Normal 0.83-4.51 [facility] Comment on above: Performed By: #### L 500.2500 #### [facility] [address] [place], [address] Absolute Neut 10.7 X10 3/uL High 2.0-7.7 [facility] Comment on above: Performed By: #### L 500.2500 #### [facility] [address] [place], [address] Basophils/100 WBC (Bld) 0.3 % Normal 0-1 [facility] Comment on above: Performed By: #### L 500.2500 #### [facility] [address] [place], [address] Eosinophils/100 WBC (Bld) 0.2 % Normal 0-5 [facility] Comment on above: Performed By: #### L 500.2500 #### [facility] [address] [place], [address] Erythrocyte distribution width (RBC) [Ratio] 15.2 % High 11.6-14.6 [facility] Comment on above: Performed By: #### L 500.2500 #### [facility] [address] [place], [address] Hematocrit (Bld) [Volume fraction] 31.1 % Low 37-47 [facility] Comment on above: Performed By: #### L 500.2500 #### [facility] [address] [place], [address] Hemoglobin (Bld) [Mass/Vol] 10.2 g/dL Low 12.0-15.0 [facility] Comment on above: Performed By: #### L 500.2500 #### [facility] [address] [place], [address] IG% 1.000 High 0.0-0.9 [facility] Comment on above: Result Comment: IG% - Immature Granulocytes (promyelocytes, myelocytes and metamyelocytes) > 1% indicates that a LEFT SHIFT is Present. Performed By: #### L 500.2500 #### [facility] [address] [place], [address] Lymphocytes/100 WBC (Bld) 8.5 % Low 19-41 [facility] Comment on above: Performed By: #### L 500.2500 #### [facility] [address] [place], [address] MCH (RBC) [Entitic mass] 28.7 pg Normal 27.0-32.0 [facility] Comment on above: Performed By: #### L 500.2500 #### [facility] [address] [place], [address] MCHC (RBC) [Mass/Vol] 32.8 g/dL Normal 32-36 [facility] Comment on above: Performed By: #### L 500.2500 #### [facility] [address] [place], [address] MCV (RBC) [Entitic vol] 87.6 fL Normal 81-99 [facility] Comment on above: Performed By: #### L 500.2500 #### [facility] [address] [place], [address] Monocytes/100 WBC (Bld) 6.8 % Normal 0-10 [facility] Comment on above: Performed By: #### L 500.2500 #### [facility] [address] [place], [address] Neutrophils/100 WBC (Bld) 83.2 % High 47-70 [facility] Comment on above: Performed By: #### L 500.2500 #### [facility] [address] [place], [address] Nucleated RBC (Bld) [#/Vol] 0 10*3/uL Normal 0-5 [facility] Comment on above: Performed By: #### L 500.2500 #### [facility] [address] [place], [address] Platelet mean volume (Bld) [Entitic vol] 9.0 fL Normal 6.2-12.0 [facility] Comment on above: Performed By: #### L 500.2500 #### [facility] [address] [place], [address] Platelets (Bld) [#/Vol] 224 10*3/uL Normal 150-450 [facility] Comment on above: Performed By: #### L 500.2500 #### [facility] [address] [place], [address] RBC (Bld) [#/Vol] 3.55 10*6/uL Low 4.2-5.4 [facility] Comment on above: Performed By: #### L 500.2500 #### [facility] [address] [place], [address] RDW SD 49.2 fl High 35.1-43.9 [facility] Comment on above: Performed By: #### L 500.2500 #### [facility] [address] [place], [address] WBC (Bld) [#/Vol] 12.8 10*3/uL High 4.4-11.0 [facility] Comment on above: Performed By: #### L 500.2500 #### [facility] [address] [place], [address] Comprehensive Metabolic Prof ilon 04-17-2024 Albumin [Mass/Vol] 3.0 g/dL Low 3.2-5.0 [facility] Comment on above: Performed By: #### L 501.080 #### [facility] [address] [place], [address] Albumin/Globulin [Mass ratio] 0.8 {ratio} Low 0.9-2.4 [facility] Comment on above: Performed By: #### L 501.080 #### [facility] [address] [place], [address] ALK P 66 U/L Normal 45-117 [facility] Comment on above: Performed By: #### L 501.080 #### [facility] [address] [place], [address] ALT [Catalytic activity/Vol] 7 U/L Low 13-56 [facility] Comment on above: Performed By: #### L 501.080 #### [facility] [address] [place], [address] AST [Catalytic activity/Vol] 11 U/L Low 15-37 [facility] Comment on above: Performed By: #### L 501.080 #### [facility] [address] [place], [address] Bilirubin [Mass/Vol] 0.60 mg/dL Normal 0.20-1.00 [facility] [place] Comment on above: Result Comment: For patients on eltrombopag therapy, use of Dimension Friant TBIL is not recommended. Performed By: #### L 501.080 #### [facility] [address] [place], [address] BUN/CRE 11.1 RATIO Normal 10-20 [facility] Comment on above: Performed By: #### L 501.080 #### [facility] [address] [place], [address] CA,Total 8.8 mg/dL Normal 8.5-10.1 [facility] Comment on above: Performed By: #### L 501.080 #### [facility] [address] [place], [address] Chloride [Moles/Vol] 91 mmol/L Low 98-107 [facility] [place] Comment on above: Performed By: #### L 501.080 #### [facility] [address] [place], [address] CO2 [Moles/Vol] 25.0 mmol/L Normal 21.0-32.0 [facility] Comment on above: Performed By: #### L 501.080 #### [facility] [address] [place], [address] Creatinine [Mass/Vol] 1.17 mg/dL High 0.55-1.02 [facility] Comment on above: Result Comment: The validity of the calculated GFR GFRAA in patients over 70 years has not been determined. Clinical correlation is essential. Performed By: #### L 501.080 #### [facility] [address] [place], [address] ECRCL 30.52 ml/min Normal [facility] Comment on above: Performed By: #### L 501.080 #### [facility] [address] [place], [address] EST GFR - AA 56 mL/min Low >60 [facility] Comment on above: Result Comment: Afri can Swedish GFR Calc Performed By: #### L 501.080 #### [facility] [address] [place], [address] GAP 11 Normal 5-15 [facility] Comment on above: Performed By: #### L 501.080 #### [facility] [address] [place], [address] GFR/1.73 sq M.predicted among non-blacks MDRD (S/P/Bld) [Vol rate/Area] 46 mL/min/{1.73_m2} Low >60 [facility] Comment on above: Result Comment: Non- GFR Calc Performed By: #### L 501.080 #### [facility] [address] [place], [address] Globulin (S) [Mass/Vol] 3.9 g/dL Normal 2.2-4.2 [facility] Comment on above: Performed By: #### L 501.080 #### [facility] [address] [place], [address] Glucose [Mass/Vol] 204 mg/dL High 74-106 [facility] Comment on above: Result Comment: Gluc ose result greater than or equal to 200 mg/dL suggests DIABETES MELLITUS per A.D.A. criteria. Performed By: #### L 501.080 #### [facility] [address] [place], [address] Potassium [Moles/Vol] 4.1 mmol/L Normal 3.5-5.1 [facility] Comment on above: Performed By: #### L 501.080 #### [facility] [address] [place], [address] Sodium [Moles/Vol] 127 mmol/L Low 136-145 [facility] Comment on above: Performed By: #### L 501.080 #### [facility] [address] [place], [address] T PROT 6.9 g/dL Normal 6.4-8.2 [facility] Comment on above: Performed By: #### L 501.080 #### [facility] [address] [place], [address] Urea nitrogen [Mass/Vol] 13 mg/dL Normal 7-18 [facility] Comment on above: Performed By: #### L 501.080 #### [facility] [address] [place], [address] Brain/Head without Contrasto n 04-16-2024 Brain/Head without Contrast [facility] Imaging Services [address] [address] Brain/Head without Contrast MR#: [id number] Acct: [id number] Name: CYNDI MEJIA Rep #: [id number] : 1935 F 89 From: Jocelyn Car MD PCP: Dr. Shaquille Benjamin MD Status: REG ER Study: Brain/Head without Contrast Date of Exam: 03/29 Exam# [id number] Ordering Dr: Arturo Iglesias MD EXAM: CT head. CLINICAL HISTORY: Trauma. COMPARISON: 11/04/2018. TECHNIQUE: CT of the head without contrast was performed. FINDINGS: Moderate global parenchymal atrophy. Moderate chronic microvascular ischemia. No evidence of acute hemorrhage or infarction. No extra-axial blood or fluid collections. The paranasal sinuses are clear. The calvarial vault and skull base are intact. CT/Brain/Head without Contrast IMPRESSION: No acute intracranial abnormality. Reading Location: [id number] CC: Dr. Arturo Iglesias MD; Dr. Shaquille Benjamin MD Brine Well Operator: Signed Normal [facility] Emergency Department Summary on 04-16-[address] [facility] [address] [place] [address] Emergency Department Summary 04/16/24 MR#: [id number] Acct: [id number] Name: CYNDI MEJIA Rep #: [id number] : 1935 89 From: Arturo Iglesias MD PCP: Dr. Shaquille Benjamin MD Status:REG ER Location: ED HPI HPI - Fall History of Present Illness Chief Complaint: Fall Narrative Narrative: 89-year-old female resident of assisted living at [place], slipped out of the bed just prior to arrival. She states that she had washed one of her feet, and went to wash the other 1 when she slid out of bed. She fell onto her right side, mainly her right shoulder. She denies hitting her head or loss of consciousness, no neck pain, but complains of right cheek redness. She may have hit her right cheek on the floor. She states it all happened so quickly. She pressed her life alert call button and needed assistance in getting up. She is right-hand dominant complains mainly of right shoulder pain, and inability to move her right upper extremity. She usually takes hydrocodone acetaminophen for arthritis. Her son also states that she is on a blood thinner which she thinks may be Plavix. Patient denies any neck pain or other injury but complains mainly of right shoulder pain worse with movement. It is relieved by nothing. PFSH PFSH Medical History Wears dentures Wears glasses Post-menopausal Depression Diabetes Thyroid disease Walker as ambulation aid Arthritis Anemia High cholesterol Back pain Injury of back Difficulty swallowing History of hiatal hernia Gastric reflux Non-smoker History of pain when walking History of stress test History of echocardiogram Cardiology follow-up encounter Zenkers diverticulum Polyneuropathy Hemorrhoids GERD (gastroesophageal reflux disease) Diverticulitis Diabetic retinopathy Esophageal stenosis Tachy-ivan syndrome History of patent ductus arteriosus Sleep apnea SSS (sick sinus syndrome) Pure hypercholesterolemia Type 2 diabetes mellitus Congestive heart failure 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 Essential hypertension Home Medications ???Medication ???Instructions ???Recorded ???Last Taken ???Type losartan 25 mg tablet 25 mg PO DAILY 10/08/18 10/31/21 H istory trazodone 50 mg tablet 50 mg PO QHS 10/08/18 10/31/21 His tory atorvastatin 20 mg tablet 20 mg PO DAILY #90 tabs 10/09/18 0 11/01/21 Rx coenzyme Q10 200 mg capsule (Co 200 mg PO DAILY 04/13/19 10/31/21 History Q-10) hydrocodone 7.5 mg-acetaminophen 1 tab PO DAILY Pain 04/13/19 Unkno wn History 325 mg tablet ([place]) levothyroxine 25 mcg tablet 25 mcg PO DAILY 11/20/19 11/01/21 History citalopram 20 mg tablet 20 mg PO DAILY 09/28/21 10/31/21 H istory metformin 500 mg tablet 500 mg PO DAILY 03/07/23 Unknown H istory pantoprazole 40 mg tablet,delayed 40 mg PO BID #60 tabs 02/07/24 Un known Rx release acetaminophen 500 mg tablet 1,000 mg PO Q6H 02/24/24 Unknown H istory (Acetaminophen Extra Strength) nebivolol 5 mg tablet 5 mg PO DAILY 02/24/24 Unknown His tory Allergy/AdvReac Type Severity Reaction Status Date / Time sitagliptin (From ) Allergy Severe Swelling Verified 04/16/24 20:44 face and legs Penicillins Allergy Unknown Unknown Verified 04/16/24 20:44 Family History Mother Diabetes Hypertension CVA (cerebral vascular accident) Brother CVA (cerebral vascular accident) Diabetes Hypertension Surgical History History of throat surgery History of appendectomy Status post aorta repair ( 2008) History of coronary artery bypass surgery ( 09/2015) Social History (Updated 04/16/24 @ 23:[address] Nichole Bautista MD) household members: none Smoking Status: Never smoker alcohol intake: current details: Rare substance use type: does not use caffeine: Yes Type: carbonated beverages and coffee Number of servings: 3 ROS ROS ED ROS Narrative Review of systems positive for right shoulder pain worse with movement, and even when lying still. No loss of consciousness, no headache, no neck pain. Denies other injuries. No prodromal chest pain or shortness of breath. EXAM Physical Exam Narrative Exam Narrative: GCS 15. ABCs intact. PERRL, EOMI. Mild redness to right cheek with minimal tenderness, no crepitance. Neck soft and supple with full range of motion. Cardiovascular examination reveals a regular rate and rhythm. Lungs are clear to auscultation bilaterally. Abdomen is soft and nontender with normal active bowel sounds. Diffuse tenderness to palpation right shoulder without crepitance. Neurovascularly inta (more content not included)... Normal [facility] H AND P Exam - Hospitaliston 04-16-2024 H&P Exam - Hospitalist [facility] [address] [place] [address] H P Exam - Hospitalist 04/16/24 2341 MR#: [id number] Acct: [id number] Name: CYNDI MEJIA Rep #: [id number] : 1935 89 From: Nichole Bautista MD PCP: Dr. Shaquille Benjamin MD Status:ADM IN Location: CA3 [id number] HPI - General General Date of Admission: 04/16/24 Date of Service: 04/16/24 Chief Complaint: Fall, R shoulder/arm pain, intractable. 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, CAD s/p CABG, Hx Dilated aortic root s/p repair who presents to the [facility] on 04/16/24 with mechanical fall living at assisted living at [place] unfortunately slipping out of bed just prior to arrival as she was washing her feet and when she was attempted to wash her second foot she fell out of bed mainly onto her right side and right shoulder with no trauma to the head or loss of consciousness but did complain of notable discomfort to the right shoulder and inability to move her right upper extremity well noting the pain was worse with movement prompting ED evaluation be cautious. In the ED patient reports 10 out of 10 severe pain to the right arm/shoulder initially and upon current evaluation following at least oral narcotic regimen she reports the pain has decreased to 8 out of 10 in severity. Workup in the ED included T98.2, heart 100, BP 206/90, respiratory rate 18, 97% on room air, CT of the brain with no acute intracranial finding, CT sinus/facial bone with no acute facial bone fracture, plain film of the right shoulder with an acute displaced right humeral neck fracture. In the ED patient administered hydrocodone 2 tablet p.o. x 1 as well as morphine 4 mg IV x 1. In the ED sling and swath placed. Pending CBC, BMP, UA per ED physician upon requested evaluation of patient. [facility] Medical History Wears dentures Wears glasses Post-menopausal Depression Diabetes Thyroid disease Walker as ambulation aid Arthritis Anemia High cholesterol Back pain Injury of back Difficulty swallowing History of hiatal hernia Gastric reflux Non-smoker History of pain when walking History of stress test History of echocardiogram Cardiology follow-up encounter [place] diverticulum Polyneuropathy Hemorrhoids GERD (gastroesophageal reflux disease) Diverticulitis Diabetic retinopathy Esophageal stenosis Tachy-ivan syndrome History of patent ductus arteriosus Sleep apnea SSS (sick sinus syndrome) Pure hypercholesterolemia Type 2 diabetes mellitus Congestive heart failure 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 Essential hypertension Home Medications ???Medication ???Instructions ???Recorded ???Last Taken ???Type losartan 25 mg tablet 25 mg PO DAILY 10/08/18 10/31/21 H istory trazodone 50 mg tablet 50 mg PO QHS 10/08/18 10/31/21 His tory hydrocodone 7.5 mg-acetaminophen 1 tab PO Q8H PRN Pain 04/13/19 Unk nown History 325 mg tablet ([place]) levothyroxine 25 mcg tablet 25 mcg PO DAILY 11/20/19 11/01/21 History citalopram 20 mg tablet 20 mg PO DAILY 09/28/21 10/31/21 H istory metformin 500 mg tablet 500 mg PO BID 03/07/23 Unknown His tory nebivolol 5 mg tablet 5 mg PO DAILY 02/24/24 Unknown His tory acetaminophen 325 mg capsule 325 mg PO Q4H PRN fever or pain Unknown History atorvastatin 20 mg tablet 20 mg PO QHS 04/16/24 Unknown Hist ory lidocaine 4 % topical patch 1 patch topical DAILY PRN pain Unknown History (Lidocare) loperamide 2 mg capsule 2 mg PO TID PRN loose stool Unknown History (Anti-Diarrheal (loperamide)) loperamide 2 mg capsule 4 mg PO PRN PRN loose stool Unknown History (Anti-Diarrheal (loperamide)) magnesium hydroxide 400 mg/5 mL 30 ml PO DAILY PRN constipation Unknown History oral suspension (Dulcolax (magnesium hydroxide)) magnesium oxide 400 mg PO BID 04/16/24 Unknown His tory pantoprazole 20 mg tablet,delayed 20 mg PO BID 04/16/24 Unknown His tory release Allergy/AdvReac Type Severity Reaction Status Date / Time sitagliptin (From ) Allergy Severe Swelling Verified 04/16/24 20:44 face and legs Penicillins Allergy Unknown Unknown Verified 04/16/24 20:44 Family History Mother Diabetes Hypertension CVA (cerebral vascular accident) Brother CVA (cerebral vascular accident) Diabetes Hypertension Surgical History History of throat surgery History of appe (more content not included)... Normal [facility] Shoulder min 2 Viewson 04-16 Shoulder min 2 Views [facility] Imaging Services [address] [place] [address] Shoulder min 2 Views MR#: [id number] Acct: [id number] Name: CYNDI MEJIA Rep #: [id number] : 1935 F 89 From: Jocelyn Car MD PCP: Dr. Shaquille Benjamin MD Status: REG ER Study: Shoulder min 2 Views Date of Exam: 04/16/24 Exam# [id number] Ordering Dr: Arturo Iglesias MD PROCEDURE: SHOULDER MIN 2 VIEWS REASON FOR EXAM: Trauma. TECHNIQUE: 7 views of the right shoulder. COMPARISON: None. FINDINGS: Acute, displaced right humeral neck fracture. No evidence of dislocation. Degenerative changes of the acromioclavicular and glenohumeral joints. RAD/Shoulder min 2 Views IMPRESSION: Acute, displaced right humeral neck fracture. Reading Location: [id number] CC: Dr. Arturo Iglesias MD; Dr. Shaquille Benjamin MD Brine Well Operator: Signed Normal [facility] Sinus/Facial Boneon 04-16-19 Sinus/Facial Bone [facility] Imaging Services [address] [place] [address] Sinus/Facial Bone MR#: [id number] Acct: [id number] Name: CYNDI MEJIA Rep #: [id number] : 1935 F 89 From: Jocelyn Car MD PCP: Dr. Shaquille Benjamin MD Status: REG ER Study: Sinus/Facial Bone Date of Exam: 04/16/24 Exam# [id number] Ordering Dr: Arturo Iglesias MD PROCEDURE: SINUS/FACIAL BONE REASON FOR EXAM: Trauma. TECHNIQUE: CT of the paranasal sinuses without contrast. COMPARISON: None. FINDINGS: Frontal: Frontal sinuses and frontoethmoidal recesses appear clear. Ethmoid: Ethmoid air cells appear clear. Sphenoid: Sphenoid sinuses and sphenoethmoidal recesses appear clear. Maxillary: Maxillary sinuses appear clear. The ostiomeatal units appear widely patent. Turbinates: Unremarkable. Nasal Septum: Midline. No large nasal septal spur. Mastoids/Middle Ears: Clear at visualized levels. Visualized intracranial structures are unremarkable. No suspicious contrast enhancement. CT/Sinus/Facial Bone IMPRESSION: No acute facial bone fracture. One or more dose reduction techniques were used (e.g., Automated exposure control, adjustment of the mA and/or kV according to patient size, use of iterative reconstruction technique). Reading Location: [id number] CC: Dr. Arturo Iglesias MD; Dr. Shaquille Benjamin MD Brine Well Operator: Signed Normal [facility] Urinalysis, Completeon 04-16 BACTERIA Normal None Seen [facility] Comment on above: Order Comment: SENT LABEL TO MS3 TO COLLECT SNACK BAR COOK TO SPECIFY Result Comment: NO S PECIMEN COLLECTED. PATIENT DISCHARGED Performed By: #### L 400.0001 #### [facility] [address] [place], [address] BILIRUBIN URINE Normal Negative [facility] Comment on above: Order Comment: SENT LABEL TO MS3 TO COLLECT SNACK BAR COOK TO SPECIFY Result Comment: NO S PECIMEN COLLECTED. PATIENT DISCHARGED Performed By: #### L 400.0001 #### [facility] [address] [place], [address] Clarity (U) Normal Clear [facility] Comment on above: Order Comment: SENT LABEL TO MS3 TO COLLECT SNACK BAR COOK TO SPECIFY Result Comment: NO S PECIMEN COLLECTED. PATIENT DISCHARGED Performed By: #### L 400.0001 #### [facility] [address] [place], [address] Color (U) Normal Yellow [facility] Comment on above: Order Comment: SENT LABEL TO MS3 TO COLLECT SNACK BAR COOK TO SPECIFY Result Comment: NO S PECIMEN COLLECTED. PATIENT DISCHARGED Performed By: #### L 400.0001 #### [facility] [address] [place], [address] EPI,SQUAMOUS Normal 5-10 [facility] Comment on above: Order Comment: SENT LABEL TO MS3 TO COLLECT SNACK BAR COOK TO SPECIFY Result Comment: NO S PECIMEN COLLECTED. PATIENT DISCHARGED Performed By: #### L 400.0001 #### [facility] [address] [place], [address] GLUCOSE, UR Normal Normal [facility] Comment on above: Order Comment: SENT LABEL TO MS3 TO COLLECT SNACK BAR COOK TO SPECIFY Result Comment: NO S PECIMEN COLLECTED. PATIENT DISCHARGED Performed By: #### L 400.0001 #### [facility] [address] [place], [address] KETONE UR Normal Negative [facility] Comment on above: Order Comment: SENT LABEL TO MS3 TO COLLECT SNACK BAR COOK TO SPECIFY Result Comment: NO S PECIMEN COLLECTED. PATIENT DISCHARGED Performed By: #### L 400.0001 #### [facility] [address] [place], [address] LEUK ESTERASE Normal Negative [facility] Comment on above: Order Comment: SENT LABEL TO MS3 TO COLLECT SNACK BAR COOK TO SPECIFY Result Comment: NO S PECIMEN COLLECTED. PATIENT DISCHARGED Performed By: #### L 400.0001 #### [facility] [address] [place], [address] Mucus Ql (Urine sed) Normal [facility] Comment on above: Order Comment: SENT LABEL TO MS3 TO COLLECT SNACK BAR COOK TO SPECIFY Result Comment: NO S PECIMEN COLLECTED. PATIENT DISCHARGED Performed By: #### L 400.0001 #### [facility] [address] [place], [address] Nitrite Ql (U) Normal Negative [facility] Comment on above: Order Comment: SENT LABEL TO MS3 TO COLLECT SNACK BAR COOK TO SPECIFY Result Comment: NO S PECIMEN COLLECTED. PATIENT DISCHARGED Performed By: #### L 400.0001 #### [facility] [address] [place], [address] OCCULT BLOOD-UR Normal Negative [facility] Comment on above: Order Comment: SENT LABEL TO MS3 TO COLLECT SNACK BAR COOK TO SPECIFY Result Comment: NO S PECIMEN COLLECTED. PATIENT DISCHARGED Performed By: #### L 400.0001 #### [facility] [address] [place], [address] pH UR Normal 5.0 - 8.0 [facility] Comment on above: Order Comment: SENT LABEL TO MS3 TO COLLECT SNACK BAR COOK TO SPECIFY Result Comment: NO S PECIMEN COLLECTED. PATIENT DISCHARGED Performed By: #### L 400.0001 #### [facility] [address] [facility] [address] PROT DIPSTX Normal Negative [facility] Comment on above: Order Comment: SENT LABEL TO MS3 TO COLLECT SNACK BAR COOK TO SPECIFY Result Comment: NO S PECIMEN COLLECTED. PATIENT DISCHARGED Performed By: #### L 400.0001 #### [facility] [address] [place] [address] RBC Normal 0-5 [facility] Comment on above: Order Comment: SENT LABEL TO MS3 TO COLLECT SNACK BAR COOK TO SPECIFY Result Comment: NO S PECIMEN COLLECTED. PATIENT DISCHARGED Performed By: #### L 400.0001 #### [facility] [address] [place] [id number] SP.GR. DIPSTX Normal 1.002-1.030 [facility] Comment on above: Order Comment: SENT LABEL TO MS3 TO COLLECT SNACK BAR COOK TO SPECIFY Result Comment: NO S PECIMEN COLLECTED. PATIENT DISCHARGED Performed By: #### L 400.0001 #### [facility] [address] [facility] [address] UR Preservative Normal [facility] Comment on above: Order Comment: SENT LABEL TO MS3 TO COLLECT SNACK BAR COOK TO SPECIFY Result Comment: NO S PECIMEN COLLECTED. PATIENT DISCHARGED Performed By: #### L 400.0001 #### [facility] [address] [facility] [address] UROBILI Normal Normal [facility] Comment on above: Order Comment: SENT LABEL TO MS3 TO COLLECT SNACK BAR COOK TO SPECIFY Result Comment: NO S PECIMEN COLLECTED. PATIENT DISCHARGED Performed By: #### L 400.0001 #### [facility] [address] [place], [address] WBC Normal 0-5 [facility] Comment on above: Order Comment: SENT LABEL TO MS3 TO COLLECT SNACK BAR COOK TO SPECIFY Result Comment: NO S PECIMEN COLLECTED. PATIENT DISCHARGED Performed By: #### L 400.0001 #### [facility] [address] [place], [address] Bedside Glucoseon 02-27-2024 FINGERSTICK GLU 88 mg/dL Normal 74-106 [facility] Comment on above: Result Comment: CANDY NOAH OF PATIENT CARE PER NURSING PROTOCOL Performed By: #### L 501.080 #### [facility] [address] [place], [address] EGD Reporton 02-27-2024 EGD Report [facility] Medical Records Department [address] [place] [address] EGD Report MR#: [id number] Acct: [id number] Name: CYNDI MEJIA Rep #: [id number] : 1935 89 From: Lg Kirkland DO PCP: Dr. Shaquille Benjamin MD Status:[facility] Patient Name: Cyndi Mejia Procedure Date: 02/27/2024 6:44 AM Date of : 1935 Age: 89 Procedure: Upper GI endoscopy Indications: Dysphagia Providers: Lg Kirkland DO Medicines: Monitored Anesthesia Care Patient Profile: This is an 89 year old female. Refer to note in patient chart for documentation of history and physical. Patient has symptoms of dysphagia with both liquids and solids. The symptoms first began within the past few weeks. Her most recent EGD for dilation was within the past year. Complications: No immediate complications. Procedure: Pre-Anesthesia Assessment: - Prior to the procedure, a History and Physical was performed, and patient medications and allergies were reviewed. The patient is competent. The risks and benefits of the procedure and the sedation options and risks were discussed with the patient. All questions were answered and informed consent was obtained. Patient identification and proposed procedure were verified by the physician in the pre-procedure area. Mental Status Examination: alert and oriented. Airway Examination: normal oropharyngeal airway and neck mobility. Respiratory Examination: clear to auscultation. CV Examination: normal. Prophylactic Antibiotics: The patient does not require prophylactic antibiotics. Prior Anticoagulants: The patient has taken no anticoagulant or antiplatelet agents except for NSAID medication. ASA Grade Assessment: II - A patient with mild systemic disease. After reviewing the risks and benefits, the patient was deemed in satisfactory condition to undergo the procedure. The anesthesia plan was to use monitored anesthesia care (MAC). Immediately prior to administration of medications, the patient was re-assessed for adequacy to receive sedatives. The heart rate, respiratory rate, oxygen saturations, blood pressure, adequacy of pulmonary ventilation, and response to care were monitored throughout the procedure. The physical status of the patient was re-assessed after the procedure. After obtaining informed consent, the endoscope was passed under direct vision. Throughout the procedure, the patient's blood pressure, pulse, and oxygen saturations were monitored continuously. The gastroscope was introduced through the mouth, and advanced to the second part of duodenum. The upper GI endoscopy was performed with difficulty due to narrowing. The patient tolerated the procedure well. Scope In: 7:10:03 AM Scope Out: 7:23:55 AM Total Procedure Duration Time 0 hours 13 minutes 52 seconds Findings: One benign-appearing, intrinsic severe stenosis was found 37 to 40 cm from the incisors. This stenosis measured 3 mm (inner diameter) x 3 cm (in length). The stenosis was traversed after dilation. A TTS dilator was passed through the scope. Dilation with an 18-19-20 mm balloon dilator was performed to 16 mm. The dilation site was examined following endoscope reinsertion and showed moderate mucosal disruption. Biopsies were taken with a cold forceps for histology. Verification of patient identification for the specimen was done. Estimated blood loss was minimal. A medium-sized hiatal hernia was present. The duodenal bulb was normal. Impression: - Benign-appearing esophageal stenosis. Dilated. Biopsied. - Medium-sized hiatal hernia. - Normal duodenal bulb. Recommendation: - Discharge patient to home. - Resume previous diet. - Continue present medications. - Await pathology results. Procedure Code(s): --- Professional --- 47255, Esophagogastroduodenosc opy, flexible, transoral; with transendoscopic balloon dilation of esophagus (less than 30 mm diameter) 71480, 59,51, Esophagogastroduodenosc opy, flexible, transoral; with biopsy, single or multiple CPT copyright 2021 [employer]. All rights reserved. The codes documented in this report are preliminary and upon robotics testing technician review may be revised to meet current compliance requirements. Lg Kirkland DO 02/27/2024 7:28:41 AM This report has been signed electronically. Number of Addenda: 0 Note Initiated On: 02/27/2024 6:44 AM 02/27/2429 Date Lg Phoenix Signature: Date (if indicated) CC: Dr. Shaquille Benjamin MD; Lg Kirkland DO Date Dictated: 02/27/2444 Date Transcribed: Brine Well Operator: SALLY Signed [facility] MR/POSTOP.[facility] 02-27-2024 MR/POSTOP.[facility] Medical Records Department [address] [place] [address] Anesthesia Postop Eval I 02/27/24731 MR#: [id number] Acct: [id number] Name: CYNDI MEJIA Rep #: [id number] : 1935 89 From: Timur Peacock PCP: Dr. Shaquille Benjamin MD Status:REG [facility] Y Race: C Location: [place] [address] Anesthesia: Postop Eval I Current Vital Signs Temperature: 97.4 F Pulse Rate: 67 Blood Pressure: 113/54 Respiratory Rate: 16 Pulse Ox: 96 Oxygen Delivery Method: Room Air Assessment Airway patent: Yes Spontaneous unlabored respirations: Yes Mental status: Asleep nausea: No Vomiting: No Anesthesia Complication: No Fluid Hydration Crystalloid volume administer (ml): 30 Total IV fluid infused: 30 Progress Note Anesthesia document: Postop Eval 1 completed: Yes 02/27/24732 Date Timur Goncalves Signature: Date CC: Signed Normal [facility] MR/[id number] 02-27-2024 [facility] Medical Records Department [address] [place] [address] Anesthesia Postop Eval II 02/27/24 1139 MR#: [id number] Acct: [id number] Name: CYNDI MEJIA Rep #: [id number] : 1935 89 From: Abdi Medina MD PCP: Dr. Shaquille Benjamin MD Status:[facility] Y Race: C Location: [place] Anesthesia Postop Eval I Sum Postop Eval Completion status Anesthesia document: Postop Eval 1 completed: Yes Anesthesia Postop Eval I Summary Anesthesia Postop Eval I Summary: Anesthesia Postop Eval I: Assessment Summary Airway patent Yes 02/27/24 07:33 [email or web address] Spontaneous unlabored Yes 02/27/24 07:33 [email or web address] respirations Mental status Asleep 02/27/24 07:33 [email or web address] nausea No 02/27/24 07:33 [email or web address] Vomiting No 02/27/24 07:33 [email or web address] Anesthesia Postop Eval I: Fluid Summary Crystalloid volume administer 30 02/27/24 07:33 [email or web address] (ml) Colloids volume administered ( ml) Blood Product volume administered (ml) Total IV fluid infused 30 02/27/24 07:33 [email or web address] Anesthesia Postop Eval I: Summary Notes Anesthesia Complication No 02/27/24 07:33 [email or web address] Anesthesia Complication Comment: Post-operative progress note Anesthesia: Postop Eval II Evaluation Mental status: Awake and Calm Pain Level: 0 nausea: No Vomiting: No Complications Anesthesia Complication: No 02/27/24 1140 Date Abdi Goncalves Signature: Date CC: Signed Normal [facility] Special Stain Group Ion 01-0 Special Stain Group I ----- Patient Age/Sex Location Account Attending Physician CYNDI MEJIA 89/F EN [id number] Lg Kirkland DO Specimen: [id number] Received: 02/27/24 Status: CHLOÉ Mathis Num: [id number] Spec Type: EGD BIOPSY Subm Dr: Lg Friend, DO HEADER OPERATION: EGD, biopsy, dilatation PRE-OP DIAGNOSIS: Localized swelling, mass and lump, neck TISSUE SUBMITTED: Distal esophagus biopsy MICROSCOPIC DIAGNOSIS Distal esophagus, biopsy: Fragments of gastroesophageal mucosa with moderate acute and chronic inflammation and reactive changes. Intestinal metaplasia (goblet cell metaplasia) is not identified. See comment. ROMY/ 02/28/2024 COMMENT Alcian blue/PAS stain with matched control is used in the evaluation of the specimen. MICROSCOPIC DESCRIPTION Slides are reviewed. GROSS DESCRIPTION Received in fixative is one container labeled with the patient's name and designated "Distal esophagus biopsy." The specimen consists of multiple irregular fragments of light campo soft tissue that in aggregate measure 1.0 x 0.5 x 0.1 cm. The specimen is totally submitted in one cassette. 02/27/2024 TC:3 CPT:68449,14776 Patient Age/Sex Location Account Attending Physician CYNDI MEJIA 89/F EN [id number] Lg Kirkland DO Signed (signature on file) Dr. Rishi Bee MD 02/28/24 1110 Normal [facility] Comment on above: Performed By: #### L 501.080 #### [facility] [address] [place], [address] /Kaylie 02-24-2024 MR/PATQASIM [facility] Medical Records Department [address] [place] [address] PAT - Anesthesia 02/24/24 1055 MR#: [id number] Acct: [id number] Name: CYNDI MEJIA Rep #: [id number] : 1935 89 From: Abdi Medina MD PCP: Status:PRE [facility] Y Race: C Location: EN Pre-Assessment Diagnosis/Proposed Procedure Planned Operative Procedure(s): EGD Anesthesia History Anesthesia History - sterile process coordinator: Anesthesia History - sterile process coordinator Hx Hospitalization No 02/24/24 09:33 Any Problems With Anesthesia No 02/24/24 09:33 Cholinesterase deficiency No 02/24/24 09:33 You/Your Family Experience No 02/24/24 09:33 fever (hyperthermia) with Relationship Recent Exposure to Contagious No 11/01/21 06:03 Disease Does patient have nerve No 02/24/24 09:33 stimulator Patient instructed to have device shut off --Does patient have Pacemaker or ICD? When Was Last Pacemaker Check QUESTION #4 FULL TEXT: You/Your Family Experience fever (hyperthermia) with Anesthesia Last Oral Intake Last Oral intake: Last Oral Intake NPO since Meds taken in AM with sips of water? Meds patient instructed to take am of surgery PONV PONV - sterile process coordinator: PONV - sterile process coordinator Female Yes 02/24/24 09:33 HX of Motion Sickness No 02/24/24 09:33 HX of N/V After Surgery No 02/24/24 09:33 Non-Smoker Yes 02/24/24 09:33 Duration of Surgery greater No 02/24/24 09:33 than 60 minutes Number of Risk Factors 2 02/24/24 09:33 PONV Score Moderate Risk 02/24/24 09:33 Height Weight Height Weight: Anesthesia: Height Weight Height 5 ft 6 in 03/07/23 14:38 Respiratory Assessment Respiratory Assessment - sterile process coordinator: Respiratory Tract Infection Hx - sterile process coordinator Hx Respiratory Tract Infection No 02/24/24 09:33 STOP Sleep Apnea STOP Sleep Apnea - sterile process coordinator: STOP Sleep Apnea - sterile process coordinator Hx Hypertension Yes: CONTROLLED WITH MEDS 02/24/24 09:33 Hx Sleep Apnea No 02/24/24 09:33 CPAP No 10/25/21 14:53 BIPAP No 10/25/21 14:53 Do you snore loudly (louder No 02/24/24 09:33 than talking or can be heard Do you often feel tired/ No 02/24/24 09:33 fatigued/ sleepy during daytime? Has anyone observed you stop No 02/24/24 09:33 breathing during sleep? STOP Results Negative 02/24/24 09:33 QUESTION #5 FULL TEXT : Do you snore loudly (louder than talking or can be heard through closed doors)? Tobacco Use History Tobacco Use History - sterile process coordinator: Tobacco Use History - sterile process coordinator Tobacco Use Smoking Status Never smoker 02/24/24 09:33 Hx Tobacco Use No 02/24/24 09:33 Years Smoking Packs Smoked per Day Smoking Cessation Date was within the last 15 years Hx Smoking Cessation Date Hx Smoking Cessation Counseling Hematologic Medial History Hematologic Hx - sterile process coordinator: Hematologic Medical Hx - outreach rep Hx of Blood Transfusion No 02/24/24 09:33 Hx of Transfusion in last 3 No 02/24/24 09:33 Months Date of Last Transfusion (if within last 3 months) Ever experience any problems No 02/24/24 09:33 with transfusion(s)? Specify any problems Hx of Preganancy in last 3 No 02/24/24 09:33 Months Nurse Filling Out Transfusion DSCHRIBER 02/24/24 09:33 Questions: Date: 02/24/24 02/24/24 09:33 Time: 09:34 02/24/24 09:33 Patient unable to answer at this time (ie. confused, unrespo /Reproduction History /Reproductive History - sterile process coordinator: /Reproductive Hx- sterile process coordinator Hx Now No 02/24/24 09:33 Gestational Age (in weeks): EDC: Hx Hx Para Hx Section SAB No 02/24/24 09:33 [facility] Medical History (Updated 02/24/24 @ 09:38 by Esthela Lindquist) Wears dentures Wears glasses Post-menopausal Depression Diabetes Thyroid disease Walker as ambulation aid Arthritis Anemia High cholesterol Back pain Injury of back Difficulty swallowing History of hiatal hernia Gastric reflux Non-smoker History of pain when walking History of stress test History of echocardiogram Cardiology follow-up encounter Zenkers diverticulum Polyneuropathy Hemorrhoids GERD (gastroesophageal reflux disease) Diverticulitis Diabetic retinopathy Esophageal stenosis Tachy-ivan syndrome History of patent ductus arteriosus Sleep apnea SSS (sick sinus syndrome) Pure hypercholesterolemia Type 2 diabetes mellitus Congestive heart failure 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 Essential hypertension Home Medications ???Medication ???Instructions ???Recorded ???Last Taken ?? (more content not included)... Normal [facility] Gastroenterology Visit Repor ton 02-07-2024 Gastroenterology Visit Report [facility] Gastroenterology [address] [place] [address] OFFICE VISIT Date of Service: 02/07/24 MR#: [id number] Acct: [id number] Name: CYNDI MEJIA Rep #: [id number] : 1935 Provider: RAZIA Melissa Age/Sex: 88/F [place] [facility] [place]: Signed Intake Vital Signs 03/07/23 14:38 Height 5 ft 6 in Intake Visit Reasons: Dysphagia Chief Complaint: dysphagia Allergies sitagliptin (From Januvia) Allergy (Severe, Verified 03/07/23 14:34) Swelling face and legs Penicillins Allergy (Unknown, Verified 03/07/23 14:34) Unknown Medications ???Medication ???Instructions ???Recorded ???Confirmed ???Type losartan 25 mg tablet 25 mg PO DAILY 10/08/18 02/07/24 History trazodone 50 mg tablet 50 mg PO QHS 10/08/18 02/07/24 History atorvastatin 20 mg tablet 20 mg PO DAILY #90 tabs 10/09/18 02/07/24 Rx coenzyme Q10 200 mg capsule (Co 200 mg PO DAILY 04/13/19 02/07/24 History Q-10) hydrocodone 7.5 mg-acetaminophen 1 tab PO Q8H PRN Pain 04/13/19 02/07/24 History 325 mg tablet ([place]) pantoprazole 20 mg tablet,delayed 20 mg PO BID 04/13/19 02/07/24 History release levothyroxine 25 mcg tablet 25 mcg PO DAILY 11/20/19 02/07/24 History citalopram 20 mg tablet 20 mg PO DAILY 09/28/21 02/07/24 History metformin 500 mg tablet 500 mg PO DAILY 03/07/23 02/07/24 History nebivolol 2.5 mg tablet 5 mg PO DAILY 03/07/23 02/07/24 History pantoprazole 40 mg tablet,delayed 40 mg PO BID #60 tabs 02/07/24 02/07/24 Rx release Have you fallen in the past year?: No PFSH Medical History Anemia Arthritis 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 Back pain Cardiology follow-up encounter Congestive heart failure Depression Diabetes Diabetic retinopathy Difficulty swallowing Diverticulitis Esophageal stenosis Essential hypertension Gastric reflux GERD (gastroesophageal reflux disease) Hemorrhoids High cholesterol History of CHF (congestive heart failure) History of echocardiogram History of hiatal hernia History of pain when walking History of patent ductus arteriosus History of stress test Injury of back Low magnesium level Non-smoker Polyneuropathy Post-menopausal Pure hypercholesterolemia Sleep apnea SSS (sick sinus syndrome) Tachy-ivan syndrome Thyroid disease Type 2 diabetes mellitus Walker as ambulation aid Wears dentures Wears glasses Zenkers diverticulum Surgical History History of appendectomy History of coronary artery bypass surgery ( 09/2015) History of throat surgery Status post aorta repair ( 2008) Family History Mother Diabetes Hypertension CVA (cerebral vascular accident) Brother CVA (cerebral vascular accident) Diabetes Hypertension Social History Smoking Status: Never smoker alcohol intake: current details: Rare substance use type: does not use caffeine: Yes Type: carbonated beverages and coffee Number of servings: 3 HPI HPI Chief Complaint: dysphagia Details: CYNDI MEJIA, is a 88 F who presents to the office today for f/u. BGI established 10.25.21 Accompanied by KATHY Horta. Recently coughed up a hotdog that she had eaten a day or two prior. Abnormal esophagram last month--concentric narrowing at distal esophagus at [facility]; barium tablet trapped at [facility]. Hx of esophageal stenosis requiring dilation. Last EGD [address] Gonzalez at [facility]. Lots of foam then; acid has decreased with less caffeine after that. She takes pantoprazole 20 mg BID, she has taken this for years. Also Hx Zenker's diverticulum, large abscess once, surgery x 2. She c/o soreness on the left side of neck where she had the abscess, started a month ago. EGD 11.01.21- The nasopharynx and oropharynx are abnormal. - Benign-appearing esophageal stenosis. Dilated. - Small hiatal hernia. - Normal second portion of the duodenum. Biopsied. OV 02.07.24 Pt has started to have issues with swallowing again. She will regurgitate with every meal although she does not feel like it is stuck. This is very similar to the symptoms she was havin g prior to last EGD. SHe felt much better and was able to eat without regurgitation. She has diarrhea every couple weeks and takes imodium as needed.She denies heartburn, n/v, abd pain, constiapation or blood in her stool. ROS Const Constitutional: Positive for fatigue, weakness and weight change (weight loss); No fever(s) ENT ENT: Positive for difficulty swallowing Gastro GI: Positive for diarrhea, difficulty swallowing and vomiting; No abdominal pain, belching, bloating, change in bowel h (more content not included)... Normal [facility] CNOVon 01-29-2024 CNOV Office Visit (FAMPWS ) SAMARACYNDI Tellez ([id number]) 1935 F Date Time Provider Department 01/29/24 1:40 PM SHAQUILLE BENJAMIN During your visit today, we recorded the following information about you: Pulse Blood pressure Weight Height 84/minute 98/52 72 kg 1.702 m Shaquille Benjamin MD 01/29/2024 3:33 PM Signed Patient presents with: Follow Up HPI: Patient presents today for office visit for follow up. Here today with daughter- in-law Madelaine. Ambulating in wheelchair. No recent falls. Complains of right knee pain today. Off and on for a long time. HTN: Monitors BP occ Denies chest pain and shortness of breath Occ mild headaches No dizziness Denies palpitations and syncope No edema I asked Madelaine to check her bp log at facility and let me kno. Monitors BS at home. This a.m was 128 HLD: Continues Atorvastatin Sleeping well most of the time. Sleeps through the night. Continues taking trazodone Has an appetite but chokes on her food. Has had a 8 lb weight loss. Daughter Madelaine thinking patient needs her esophagus stretched again. Last dilation was 10/2022 Seeing GI next week Having increasing pain over her left back. Offered xray. Declines getting onto the table. No radicular changes. Continues on norco. It does help most of the time. When she sits in wheelchair it is worse. Madelaine is setting up her pills and using norco once a day. 7.5 may need decreased to 5 mg due to cost. She uses tylenol prn. Most days we are comfortable. Oarrs done. Due for new controlled substance agreement. Still doing therapy. Has seen podiatry since last ov. She is not using her mag frequently. Latest Ref Rng 09/25/2023 WBC 3.70 - 11.00 k/uL 6.46 RBC 3.90 - 5.20 m/uL 4.21 Hemoglobin 11.5 - 15.5 g/dL 10.4 (L) Hematocrit 36.0 - 46.0 % 33.7 (L) MCV 80.0 - 100.0 fL 80.0 MCH 26.0 - 34.0 pg 24.7 (L) MCHC 30.5 - 36.0 g/dL 30.9 RDW-CV 11.5 - 15.0 % 16.1 (H) Platelet Count 150 - 400 k/uL 208 MPV 9.0 - 12.7 fL 9.5 Neut% % 72.3 Abs Neut (ANC) 1.45 - 7.50 k/uL 4.68 Lymph% % 16.9 Abs Lymph 1.00 - 4.00 k/uL 1.09 Bee% % 7.3 Abs Bee <0.87 k/uL 0.47 Eosin% % 2.5 Abs Eosin <0.46 k/uL 0.16 Baso% % 0.5 Abs Baso <0.11 k/uL 0.03 Immature Gran % % 0.5 IMMATURE GRANS (ABS) <0.10 k/uL 0.03 NRBC /100 WBC 0.0 Absolute nRBC <0.01 k/uL <0.01 DTYPE Auto Glucose 74 - 99 mg/dL 151 (H) BUN 7 - 21 mg/dL 17 Creatinine 0.58 - 0.96 mg/dL 0.86 Sodium 136 - 144 mmol/L 133 (L) Potassium 3.7 - 5.1 mmol/L 4.2 Chloride 98 - 107 mmol/L 97 (L) CO2 22 - 30 mmol/L 26 Anion Gap 8 - 15 mmol/L 10 Calcium 8.5 - 10.2 mg/dL 9.4 eGFR >=60 mL/min/1.73m? 65 Phencyclidine Negative Negative Benzodiazepines Urine Negative Negative Cocaine Urine Negative Negative Amphetamines Negative Negative Cannabinoids, Urine Negative Negative Opiates Negative Preliminary positive ! Barbiturates Negative Negative Ethanol, Urine <11 mg/dL <11 Oxycodone, Urine Negative Negative Creatinine, Ur Random (UCRR) 20.0 - 300.0 mg/dL 91.2 Albumin, Urine Random mg/L 30.2 Albumin/Creat Ratio <30 mg/g 33 (H) Iron 41 - 186 ug/dL 45 TIBC 232 - 386 ug/dL 427 (H) Transferrin Saturation 15.0 - 57.0 % 10.5 (L) Hemoglobin A1C 4.3 - 5.6 % 6.7 (H) Estimated Average Glucose mg/dL 146 Magnesium 1.7 - 2.3 mg/dL 1.2 (L) Ferritin 14.7 - 205.1 ng/mL 23.6 Vitamin B12 232 - 1,245 pg/mL 366 Legend: (L) Low (H) High ! Abnormal Note was copied and pasted, without alteration from last check up.: Has not done as well since having to move to a studio apartment. Not as happy. Upset with lack of privacy. Feels "lousy" in general. Diabetes: Checking glucose once daily. HTN: Patient is compliant with meds Yes Monitors bp at home: Yes. Denies side effects: Yes. Chest pain: No. Dyspnea: No. Edema: No. Palpitations: No. Syncope: No. Headache: No. Dizziness: No. Has had a few gagging and choking episodes at the table. So has not gone as much to dinner. Had an appt done in Jan by Dr Kirkland. Declines repeat evaluation. Had been eating chocolate and coffee again. Discussed limiting caffeine. Protonix is back at bid. Not taking mag No falls. Using a lactose free milk and watching diet. Does have occasional loose stools. Pain is ok most of the time. Has been on for some time chronically Helps with ADLs Has some joint pain. MEDICATIONS: Current Outpatient Medications Medication Sig HYDROcodone-Acetaminoph en (NORCO) 7.5-325 mg per tablet Take 1 tablet by mouth every 8 hours as needed for pain for up to 30 days. traZODone (DESYREL) 50 mg tablet Take 1 tablet by mouth daily at bedtime. loperamide HCl (IMODIUM) 2 mg tab Take 2 mg by mouth as needed. citalopram (CELEXA) 20 mg tablet Take 1 tablet by mouth once daily. metFORMIN ER (GLUCOPHAGE XR) 500 mg 24 hr tablet Take 1 tablet by mouth daily (more content not included)... Normal [facility] CYNDI MEJIA ([id number]) 1935 F Date Time Provider Department 12/30/23 SHAQUILLE BENJAMIN During your visit today, we recorded the following information about you: Shawn Dalton RN 12/30/2023 9:56 AM Signed Shalini with [facility] calls to request copy of PT order and notes from visit on 12/24/2023. Faxed per request to [phone] Shawn Dalton RN Allergies As of Date: 12/30/2023 Noted Allergy Reaction JANUVIA (SITAGLIPTIN) 10/14/2017 4 - Hives PENICILLIN 10/14/2017 4 - Hives Date Reviewed: 12/05/2023 Reviewed by: Jacob Morris APRN.GOLF COACH - Fully Assessed Reason for Visit: Orders [681] Prescriptions as of 12/30/2023 - HYDROcodone-Acetaminoph en (NORCO) 7.5-325 mg per tablet Take 1 tablet by mouth every 8 hours as needed for pain for up to 30 days. - traZODone (DESYREL) 50 mg tablet Take 1 tablet by mouth daily at bedtime. - loperamide HCl (IMODIUM) 2 mg tab Take 2 mg by mouth as needed. - magnesium oxide 400 mg magnesium tab Take by mouth. - magnesium hydroxide (MILK OF MAGNESIA) 400 mg/5 mL suspension Take by mouth once daily as needed. - predniSONE (DELTASONE) 20 mg tablet One tab by mouth daily for 5 days. - citalopram (CELEXA) 20 mg tablet Take 1 tablet by mouth once daily. - metFORMIN ER (GLUCOPHAGE XR) 500 mg 24 hr tablet Take 1 tablet by mouth daily with breakfast. - levothyroxine (SYNTHROID) 25 mcg tablet Take 1 tablet by mouth once daily. Take on empty stomach. For thyroid. - losartan (COZAAR) 25 mg tablet Take 1 tablet by mouth once daily. - pantoprazole DR (PROTONIX) 20 mg tablet Take 1 tablet by mouth two times a day. - atorvastatin (LIPITOR) 20 mg tablet Take 1 tablet by mouth once daily. - nebivolol (BYSTOLIC) 5 mg tablet Take 1 tablet by mouth once daily. - blood sugar diagnostic (BLOOD GLUCOSE TEST) test strip Test blood sugar(s) 1 times daily. Dx: Type 2 DM - Controlled E11.9 Insulin: No - BABY ASPIRIN ORAL Take 81 mg by mouth once daily. - Lancets lancets Test blood sugar(s) 1 times daily. Dx: Type 2 DM - E11.8 Insulin: No - cyanocobalamin (VITAMIN B-12) 1,000 mcg tab Take 1,000 mcg by mouth once daily. - ubidecarenone Q-10 (COENZYME Q-10) 10 mg cap Take 50 mg by mouth twice daily. - Cholecalciferol, Vitamin D3, 50 mcg (2,000 unit) cap Take by mouth. Problem List As Of Date 12/30/2023 Noted Resolved Essential hypertension [I10] 10/14/2017 Depression [F32.A] 10/14/2017 Type 2 diabetes mellitus with complication, wit*10/14/2017 GERD without esophagitis [K21.9] 10/14/2017 Vitamin B12 deficiency [E53.8] 10/16/2017 Primary osteoarthritis of both knees [M17.0] 10/16/2017 Zenker diverticulum [K22.5] 10/16/2017 CAD (coronary artery disease) [I25.10] 10/16/2017 Hyperlipidemia, mixed [E78.2] 10/16/2017 ELKIN (obstructive sleep apnea) [G47.33] 10/16/2017 Hypertensive heart disease with heart failure (*10/16/2017 Hypomagnesemia [E83.42] 10/16/2017 Hyponatremia [E87.1] 10/16/2017 Chronic thoracic back pain [M54.6, G89.29] 01/29/2018 Risk for falls [Z91.81] 01/30/2018 03/07/2022 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] 10/08/2018 Bilateral carotid artery stenosis [I65.23] 11/06/2018 History of CVA in adulthood [Z86.73] 02/19/2019 Dysphagia [R13.10] 02/19/2019 Generalized weakness [R53.1] 12/06/2021 01/17/2022 Lumbar spinal stenosis [M48.061] 07/30/2022 Closed fracture of orbital floor (HCC) [S02.30X*11/07/2022 12/24/2023 Diagnosed: 11/07/2022 Closed head injury [S09.90XA] 11/07/2022 02/06/2023 Diagnosed: 11/07/2022 Fall [W19.XXXA] 11/07/2022 11/07/2022 Diagnosed: 11/07/2022 History of cardiovascular disorder [Z86.79] 09/25/2022 Diagnosed: 11/07/2022 History of coronary artery bypass surgery [Z95.*11/07/2022 Diagnosed: 11/07/2022 History of major vascular surgery [Z98.890] 09/25/2022 Diagnosed: 11/07/2022 Lesion of esophagus [K22.9] 11/07/2022 11/07/2022 Diagnosed: 11/07/2022 Mass of neck [R22.1] 11/08/2021 11/07/2022 Diagnosed: 11/07/2022 Pure hypercholesterolemia [E78.00] 09/25/2022 Diagnosed: 11/07/2022 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] 06/07/2022 Diagnosed: 11/07/2022 Other specified anemias [D64.89] 11/07/2022 Major depressive disorder, recurrent, in partia*12/24/2023 Encounter Status:Closed by SHAWN DALTON on 12/30/23 [facility] CNOVon 12-05-2023 CNOV Office Visit (UCWSTR ) CYNDI MEJIA ([id number]) 1935 F Date Time Provider Department 12/05/23 1:00 PM JACOB MORRIS During your visit today, we recorded the following information about you: Temperature Pulse Respiration Blood pressure 97.2 degrees 87/minute 18/minute 147/72 Jacob Morris APRN.CNP 12/05/2023 1:25 PM Signed This note was created using [employer] (Chapter 11)riter. Subjective Cyndi Mejia is a 88 year old female. HPI Patient presents today stating that she needs a cortisone shot for her acute on chronic left lower back pain that goes into her left hip. She states that whenever she has these flareups she gets a cortisone shot and the pain is resolved. She has not had any injections locally as she has recently moved here from out of town. She otherwise denies any recent strain or trauma. Denies any change in bowel or bladder habits. Denies any loss of sensation in her extremities. She is currently taking [place] for pain. Review of Systems As noted in HPI Objective BP 147/72 Pulse 87 Temp 36.2 ?C (97.2 ?F) Resp 18 SpO2 98% Physical Exam Vitals and nursing note reviewed. Constitutional: General: She is not in acute distress. Appearance: Normal appearance. She is not ill-appearing. HENT: Head: Normocephalic. Pulmonary: Effort: Pulmonary effort is normal. Musculoskeletal: Cervical back: Normal range of motion. Comments: Tenderness over the left lateral lower back sparing the vertebral vertebrae. Skin: General: Skin is warm and dry. Neurological: General: No focal deficit present. Mental Status: She is alert. Comments: Full sensation and movement to bilateral lower extremities Psychiatric: Mood and Affect: Mood normal. Behavior: Behavior normal. Assessment and Plan ASSESSMENT/PLAN: 1. Strain of lumbar region, initial encounter - ICD9: 847.2, ICD10: S39.012A Patient's presentation appears consistent with acute on chronic left lower back pain. I discussed with her that we did not have the ability to do a cortisone injection but we could do a 5-day prednisone burst. Patient is type II diabetic and as such she will be placed on a 20 mg daily dose. She is to otherwise continue with her prescribed pain medications, slowly resume activities as tolerated, and return for any new or worsening concerns. - PREDNISONE 20 MG TABLET Jacob Morris APRN.CNP Allergies As of Date: 12/05/2023 Noted Allergy Reaction JANUVIA (SITAGLIPTIN) 10/14/2017 4 - Hives PENICILLIN 10/14/2017 4 - Hives Date Reviewed: 12/05/2023 Reviewed by: Jacob Morris APRN.GOLF COACH - Fully Assessed Reason for Visit: Low Back Pain [126] Cmt: Chronic, worse x5 days Primary Visit Diagnosis:Strain of lumbar region, initial encounter [S39.012A] Order(s):predniSONE (DELTASONE) 20 mg tabletOne tab by mouth daily for 5 days.Disp: 5 tabletRfl: 0 Prescriptions as of 12/05/2023 - loperamide HCl (IMODIUM) 2 mg tab Take 2 mg by mouth as needed. - magnesium oxide 400 mg magnesium tab Take by mouth. - magnesium hydroxide (MILK OF MAGNESIA) 400 mg/5 mL suspension Take by mouth once daily as needed. - traZODone (DESYREL) 50 mg tablet Take 50 mg by mouth daily at bedtime. - predniSONE (DELTASONE) 20 mg tablet One tab by mouth daily for 5 days. - citalopram (CELEXA) 20 mg tablet Take 1 tablet by mouth once daily. - metFORMIN ER (GLUCOPHAGE XR) 500 mg 24 hr tablet Take 1 tablet by mouth daily with breakfast. - HYDROcodone-Acetaminoph en (NORCO) 7.5-325 mg per tablet Take 1 tablet by mouth every 8 hours as needed for pain for up to 30 days. - levothyroxine (SYNTHROID) 25 mcg tablet Take 1 tablet by mouth once daily. Take on empty stomach. For thyroid. - Magnesium Glycinate (MAG GLYCINATE) 100 mg tab Take 1 tablet by mouth once daily. - losartan (COZAAR) 25 mg tablet Take 1 tablet by mouth once daily. - pantoprazole DR (PROTONIX) 20 mg tablet Take 1 tablet by mouth two times a day. - atorvastatin (LIPITOR) 20 mg tablet Take 1 tablet by mouth once daily. - nebivolol (BYSTOLIC) 5 mg tablet Take 1 tablet by mouth once daily. - blood sugar diagnostic (BLOOD GLUCOSE TEST) test strip Test blood sugar(s) 1 times daily. Dx: Type 2 DM - Controlled E11.9 Insulin: No - BABY ASPIRIN ORAL Take 81 mg by mouth once daily. - Lancets lancets Test blood sugar(s) 1 times daily. Dx: Type 2 DM - E11.8 Insulin: No - cyanocobalamin (VITAMIN B-12) 1,000 mcg tab Take 1,000 mcg by mouth once daily. - ubidecarenone Q-10 (COENZYME Q-10) 10 mg cap Take 50 mg by mouth twice daily. - Cholecalciferol, Vitamin D3, 50 mcg (2,000 unit) cap Take by mouth. Problem List As Of Date 12/05/2023 Noted Resolved Essential hypertension [I10] 10/14/2017 Depression [F32.A] 10/14/2017 Type 2 diabetes mellitus with complication, wit*10/14/2017 GERD without esophagitis [K21.9] 10/14/2017 Vitamin B12 deficiency [E53.8] 08 (more content not included)... Normal [facility] CNOVon 10-29-2023 CNOV Office Visit (PODIWS ) CYNDI MEJIA ([id number]) 1935 F Date Time Provider Department 10/29/23 2:30 PM JOCELYN BROTHERS PODIWS During your visit today, we recorded the following information about you: Laura Echevarria, RN 10/30/2023 7:53 AM Signed Patient presents with: Left Foot - New, Nail Check, Diabetic Foot Check Right Foot - New, Nail Check, Diabetic Foot Check Patient presents as referral from Dr. Benjamin's office for diabetic foot exam and Onychomycosis. Patient's toenails are long, thick and discolored. Denies any foot pain. States that she is a diabetic and has difficulty trimming her toenails. Jocelyn Brothers 10/30/2023 7:53 AM Signed Initial Podiatric Office Visit: Consultation requested by Dr. Benjamin for an opinion regarding dystrophic toenails. My final recommendations will be communicated back to the requesting physician by way of shared Medical record or letter to requesting physician via US mail. Chief Complaint: This 88 year old female who presents with chief complaint:dystrophic toenails HPI Patient presents to clinic for evaluation of b/l feet Her greatest concern is dystrophic toenails of b/l feet and difficultly cutting them. She is diabetic x 30 years. Denies any numbness, tinging or burning Has no other complaints. PAIN EVALUATION No data found in the last 1 encounters. Hemoglobin A1C (%) Date Value 09/25/2023 6.7 05/21/2023 6.6 11/26/2022 6.2 07/25/2022 6.2 03/05/2022 6.4 02/07/2021 6.6 07/22/2020 7.0 03/10/2020 7.0 08/10/2019 6.8 04/03/2019 7.0 PCP: Shaquille Benjamin MD PAST MEDICAL HISTORY No date: Anxiety No date: CAD (coronary artery disease) No date: Congestive heart failure (CHF) ([facility]) No date: Diabetic retinopathy ([facility]) No date: Diverticulitis No date: Esophageal stenosis No date: GERD (gastroesophageal reflux disease) No date: Hemorrhoids No date: HTN (hypertension) No date: Hyperlipidemia No date: Low magnesium level No date: Polyneuropathy in diabetes ([facility]) No date: Sleep apnea No date: SSS (sick sinus syndrome) ([facility]) No date: Type 2 diabetes mellitus ([facility]) No date: Zenker's diverticulum Current Outpatient Medications Medication Sig HYDROcodone-Acetaminoph en (NORCO) 7.5-325 mg per tablet Take 1 tablet by mouth every 8 hours as needed for pain for up to 30 days. losartan (COZAAR) 25 mg tablet Take 1 tablet by mouth once daily. pantoprazole DR (PROTONIX) 20 mg tablet Take 1 tablet by mouth two times a day. citalopram (CELEXA) 20 mg tablet Take 1 tablet by mouth once daily. metFORMIN ER (GLUCOPHAGE XR) 500 mg 24 hr tablet Take 1 tablet by mouth daily with breakfast. atorvastatin (LIPITOR) 20 mg tablet Take 1 tablet by mouth once daily. nebivolol (BYSTOLIC) 5 mg tablet Take 1 tablet by mouth once daily. levothyroxine (SYNTHROID) 25 mcg tablet Take 1 tablet by mouth once daily. Take on empty stomach. For thyroid. traZODone (DESYREL) 50 mg tablet Take 1 tablet by mouth daily at bedtime. blood sugar diagnostic (BLOOD GLUCOSE TEST) test strip Test blood sugar(s) 1 times daily. Dx: Type 2 DM - Controlled E11.9 Insulin: No BABY ASPIRIN ORAL Take 81 mg by mouth once daily. Lancets lancets Test blood sugar(s) 1 times daily. Dx: Type 2 DM - E11.8 Insulin: No cyanocobalamin (VITAMIN B-12) 1,000 mcg tab Take 1,000 mcg by mouth once daily. ubidecarenone Q-10 (COENZYME Q-10) 10 mg cap Take 50 mg by mouth twice daily. Cholecalciferol, Vitamin D3, 50 mcg (2,000 unit) cap Take by mouth. Magnesium Glycinate (MAG GLYCINATE) 100 mg tab Take 1 tablet by mouth once daily. No current facility-administered medications for this visit. ALLERGIES Allergen Reactions Januvia [Sitaglipti* Hives Penicillin Hives PAST SURGICAL HISTORY No date: APPENDECTOMY 05/24/2014: COLONOSCOPY No date: CORONARY ARTERY BYPASS GRAFT 07/10/2017: EGD Comment: Schatzki ring, hiatal hernia, non-bleeding gastropathy 11/01/2021: EGD W/O [facility] SPEC VARICIES INJ; N/A 1958: OTHER Comment: patent ductus repair 2008: OTHER Comment: aorta repair No date: OTHER Comment: retinal repair No family history on file. Social History Tobacco Use Smoking status: Never Smokeless tobacco: Never Vaping Use Vaping status: Never Used Substance Use Topics Alcohol use: Yes Comment: occasionally Drug use: No REVIEW OF SYSTEMS GENERAL: Negative for Malaise, significant weight loss, fever RESPIRATORY: Negative for cough, wheezing and shortness of breath CARDIOVASCULAR: Negative for chest pain, leg swelling and palpitations GI: Negative for abdominal discomfort, blood in stools or black stools and change in bowel habits : Negative for dysuria, frequency and incontinence MUSCULOSKELETAL: Negative for joint pain or swelling, back pain, and muscle pain. SKIN: Negative for lesions, rash, and itching. HEMATOLOGY/LYMPHOLOGY Negative for pro (more content not included)... Normal [facility] Radha 09-26-2023 [facility] Telephone (FAMPWS) CYNDI MEJIA ([id number]) 1935 F Date Time Provider Department 09/26/23 SHAQUILLE BENJAMINPWS During your visit today, we recorded the following information about you: Shaquille Benjamin MD 09/26/2023 10:31 AM Signed Labs are all stable. I think Rula Mejia, her daughter in law was going to try and have her take a new type of mag. See if she is starting to take it. If so, can recheck mag in a few weeks. Em Aly MA 09/26/2023 11:13 AM Signed Patient informed and verbalized understanding. Yes, she is taking the magnesium. Advised her to come in in the next few weeks to check level. Em Aly MA Allergies As of Date: 09/26/2023 Noted Allergy Reaction JANUVIA (SITAGLIPTIN) 10/14/2017 4 - Hives PENICILLIN 10/14/2017 4 - Hives Date Reviewed: 09/20/2023 Reviewed by: Macy Badillo LPN - Fully Assessed Reason for Visit: Results [95] Primary Visit Diagnosis:Hypomagnesemi a [E83.42] Order(s):MAGNESIUM [SQMG1] Order #: [id number] FUTURE Prescriptions as of 09/26/2023 - Magnesium Glycinate (MAG GLYCINATE) 100 mg tab Take 1 tablet by mouth once daily. - losartan (COZAAR) 25 mg tablet Take 1 tablet by mouth once daily. - HYDROcodone-Acetaminoph en (NORCO) 7.5-325 mg per tablet Take 1 tablet by mouth every 8 hours as needed for pain for up to 30 days. - pantoprazole DR (PROTONIX) 20 mg tablet Take 1 tablet by mouth two times a day. - citalopram (CELEXA) 20 mg tablet Take 1 tablet by mouth once daily. - metFORMIN ER (GLUCOPHAGE XR) 500 mg 24 hr tablet Take 1 tablet by mouth daily with breakfast. - atorvastatin (LIPITOR) 20 mg tablet Take 1 tablet by mouth once daily. - nebivolol (BYSTOLIC) 5 mg tablet Take 1 tablet by mouth once daily. - levothyroxine (SYNTHROID) 25 mcg tablet Take 1 tablet by mouth once daily. Take on empty stomach. For thyroid. - traZODone (DESYREL) 50 mg tablet Take 1 tablet by mouth daily at bedtime. - blood sugar diagnostic (BLOOD GLUCOSE TEST) test strip Test blood sugar(s) 1 times daily. Dx: Type 2 DM - Controlled E11.9 Insulin: No - BABY ASPIRIN ORAL Take 81 mg by mouth once daily. - Lancets lancets Test blood sugar(s) 1 times daily. Dx: Type 2 DM - E11.8 Insulin: No - cyanocobalamin (VITAMIN B-12) 1,000 mcg tab Take 1,000 mcg by mouth once daily. - ubidecarenone Q-10 (COENZYME Q-10) 10 mg cap Take 50 mg by mouth twice daily. - Cholecalciferol, Vitamin D3, 50 mcg (2,000 unit) cap Take by mouth. Problem List As Of Date 09/26/2023 Noted Resolved Essential hypertension [I10] 10/14/2017 Depression [F32.A] 10/14/2017 Type 2 diabetes mellitus with complication, wit*10/14/2017 GERD without esophagitis [K21.9] 10/14/2017 Vitamin B12 deficiency [E53.8] 10/16/2017 Primary osteoarthritis of both knees [M17.0] 10/16/2017 Zenker diverticulum [K22.5] 10/16/2017 CAD (coronary artery disease) [I25.10] 10/16/2017 Hyperlipidemia, mixed [E78.2] 10/16/2017 ELKIN (obstructive sleep apnea) [G47.33] 10/16/2017 Hypertensive heart disease with heart failure (*10/16/2017 Hypomagnesemia [E83.42] 10/16/2017 Hyponatremia [E87.1] 10/16/2017 Chronic thoracic back pain [M54.6, G89.29] 01/29/2018 Risk for falls [Z91.81] 01/30/2018 03/07/2022 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] 10/08/2018 Bilateral carotid artery stenosis [I65.23] 11/06/2018 History of CVA in adulthood [Z86.73] 02/19/2019 Dysphagia [R13.10] 02/19/2019 Generalized weakness [R53.1] 12/06/2021 01/17/2022 Lumbar spinal stenosis [M48.061] 07/30/2022 Closed fracture of orbital floor (HCC) [S02.30X*11/07/2022 Closed head injury [S09.90XA] 11/07/2022 02/06/2023 Fall [W19.XXXA] 11/07/2022 11/07/2022 History of cardiovascular disorder [Z86.79] 09/25/2022 History of coronary artery bypass surgery [Z95.*11/07/2022 History of major vascular surgery [Z98.890] 09/25/2022 Lesion of esophagus [K22.9] 11/07/2022 11/07/2022 Mass of neck [R22.1] 11/08/2021 11/07/2022 Pure hypercholesterolemia [E78.00] 09/25/2022 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] 06/07/2022 Other specified anemias [D64.89] 11/07/2022 Encounter Status:Closed by EM ALY on 09/26/23 Normal [facility] ALBUMIN/CREATININE RATIO, UR INEon 09-25-2023 Albumin DL <= 20 mg/L (U) [Mass/Vol] 30.2 mg/L Normal [facility] Comment on above: Order Comment: Speci men Type: URINE SPECIMENOrdering Facility: [facility] Address: [address] [place] [address] Performed By: #### U TOX2, UACR ####[facility] LABCLIA [id number] [facility] [id number] [address] [place] Albumin/Creatinine (U) [Mass ratio] 33 mg/g High <30 [facility] Comment on above: Order Comment: Speci men Type: URINE SPECIMENOrdering Facility: [facility] Address: [address] [place] [address] Result Comment: Adul t Male and Female Nephrotic Criteria: <30 mg/g is considered normal to mildly increased 30-300 mg/g is considered moderately increased >300 mg/g is considered severely increased KDIGO. (2013). KDIGO 2012 Clinical Practice Guideline for the Evaluation and Management of Chronic Kidney Disease. Official Journal of the International Society of Nephrology, 3(1), 1-150. Performed By: #### U TOX2, UACR ####[facility] LABCLIA [id number] [address] [address] [place] Creatinine (U) [Mass/Vol] 91.2 mg/dL Normal 20.0-300.0 [facility] Comment on above: Order Comment: Speci men Type: URINE SPECIMENOrdering Facility: [facility] Address: [address] [place] [address] Performed By: #### U TOX2, UACR ####[facility] LABCLIA [id number] [address] [address] [place] Basic metabolic 2000 panelon 09-25-2023 Anion gap [Moles/Vol] 10 mmol/L Normal 8-15 [facility] Comment on above: Order Comment: Speci men Type: BLOOD SPECIMENOrdering Facility: [facility] Address: [address] [place] [address] Performed By: #### 2 432-2, ####[facility] LAURA MILLTOWNCLIA [id number] [place] [address] [place] Calcium [Mass/Vol] 9.4 mg/dL Normal 8.5-10.2 [facility] Comment on above: Order Comment: Speci men Type: BLOOD SPECIMENOrdering Facility: [facility] Address: [address] [place] [address] Performed By: #### 2 4321-2, ####[facility] LAURA MILLTOWNCLIA [id number] [place] [address] [place] Chloride [Moles/Vol] 97 mmol/L Low 98-107 [facility] Comment on above: Order Comment: Speci men Type: BLOOD SPECIMENOrdering Facility: [facility] Address: [address] [place] [address] Performed By: #### 2 4321-2, ####[facility] LAURA MILLTOWNCLIA [id number] [place] [address] [place] CO2 [Moles/Vol] 26 mmol/L Normal 22-30 [facility] Comment on above: Order Comment: Speci men Type: BLOOD SPECIMENOrdering Facility: [facility] Address: [address] [place] [address] Performed By: #### 2 4321-2, ####[facility] [id number] [place] [address] [place] Creatinine [Mass/Vol] 0.86 mg/dL Normal 0.58-0.96 [facility] Comment on above: Order Comment: Speci men Type: BLOOD SPECIMENOrdering Facility: [facility] Address: [address] [place] [address] Performed By: #### 2 432-2, ####[facility] [id number] [place] [address] [place] Creatinine and Glomerular filtration rate.predicted panel (S/P/Bld) 65 mL/min/1.73m??? Normal >=60 [facility] Comment on above: Order Comment: Speci men Type: BLOOD SPECIMENOrdering Facility: [facility] Address: [address] [place] [address] Result Comment: [facility] mated Glomerular Filtration Rate (eGFR) is calculated using the 2020 CKD-EPI creatinine equation. This equation utilizes serum creatinine, sex, and age as parameters. The creatinine assay has traceable calibration to isotope dilution-mass spectrometry. Refer to KDIGO guidelines for clinical interpretation. In patients with unstable renal function, e.g. those with acute kidney injury, the eGFR may not accurately reflect actual GFR. Performed By: #### 2 4321-2, ####[facility]CLI [id number] [place] [address] [place] Glucose [Mass/Vol] 151 mg/dL High 74-99 [facility] Comment on above: Order Comment: David narayanan Type: BLOOD SPECIMENOrdering Facility: [facility] Address: [address] [place] [address] Result Comment: The [place] Diabetes Association (ADA) provides guidance for cutoff values for fasting glucose and random glucose. The ADA defines fasting as no caloric intake for at least 8 hours. Fasting plasma glucose results between 100 to 125 mg/dL indicate increased risk for diabetes (prediabetes). Fasting plasma glucose results greater than or equal to 126 mg/dL meet the criteria for diagnosis of diabetes. In the absence of unequivocal hyperglycemia, results should be confirmed by repeat testing. In a patient with classic symptoms of hyperglycemia or hyperglycemic crisis, random plasma glucose results greater than or equal to 200 mg/dL meet the criteria for diagnosis of diabetes. Reference: Standards of Medical Care in Diabetes 2016, [place] Diabetes Association. Diabetes Care. 2016.39(Suppl 1). Performed By: #### 2 4321-2, 69041-6 ####[facility] [employer]WKARANLIArmaan [id number] [place] [address] [place] Potassium [Moles/Vol] 4.2 mmol/L Normal 3.7-5.1 [facility] Comment on above: Order Comment: David narayanan Type: BLOOD SPECIMENOrdering Facility: [facility] Address: [address] [place], [place] [address] Performed By: #### 2 4321-2, 14173-5 ####[facility]ITALWKARANLIArmaan [id number] [place] [address] [place] Sodium [Moles/Vol] 133 mmol/L Low 136-144 [facility] Comment on above: Order Comment: David narayanan Type: BLOOD SPECIMENOrdering Facility: [facility] Address: [address] [place] [address] Performed By: #### 2 4321-2, ####[facility] MILLWNCLIA [id number] [place] [address] [place] Urea nitrogen [Mass/Vol] 17 mg/dL Normal 7-21 [facility] Comment on above: Order Comment: Speci men Type: BLOOD SPECIMENOrdering Facility: [facility] Address: [address] [place] [address] Performed By: #### 2 4321-2, 31963-8 ####[facility] [id number] [place] [address] [place] CBC W Auto Differential pane l (Bld)on 09-25-2023 Basophils (Bld) [#/Vol] 0.03 10*3/uL Normal <0.11 [facility] Comment on above: Order Comment: Speci men Type: BLOOD SPECIMENOrdering Facility: [facility] Address: [address] [place] [address] Performed By: #### 5 7021-8 ####[facility] [id number] [place] [address] [place] Basophils/100 WBC (Bld) 0.5 % Normal [facility] Comment on above: Order Comment: Speci men Type: BLOOD SPECIMENOrdering Facility: [facility] Address: [address] [place] [address] Performed By: #### 5 7021-8 ####[facility] [id number] [place] [address] [place] Differential cell count method Nom (Bld) Auto Normal [facility] Comment on above: Order Comment: Speci men Type: BLOOD SPECIMENOrdering Facility: [facility] Address: [address] [place] [address] Performed By: #### 5 7021-8 ####[facility] [id number] [place] [address] [place] Eosinophils (Bld) [#/Vol] 0.16 10*3/uL Normal <0.46 [facility] Comment on above: Order Comment: Speci men Type: BLOOD SPECIMENOrdering Facility: [facility] Address: [address] [place] [address] Performed By: #### 5 7021-8 ####[facility] MILLTOWNCLIA [id number] [place] [address] [place] Eosinophils/100 WBC (Bld) 2.5 % Normal [facility] Comment on above: Order Comment: Speci men Type: BLOOD SPECIMENOrdering Facility: [facility] Address: [address] [place] [address] Performed By: #### 5 7021-8 ####[facility]ITALWNCLIA [id number] [place] [address] [place] Erythrocyte distribution width (RBC) [Ratio] 16.1 % High 11.5-15.0 [facility] Comment on above: Order Comment: Speci men Type: BLOOD SPECIMENOrdering Facility: [facility] Address: [address] [place] [address] Performed By: #### 5 7021-8 ####[facility]IDNCLIA [id number] [place] [address] [place] Hematocrit (Bld) [Volume fraction] 33.7 % Low 36.0-46.0 [facility] Comment on above: Order Comment: Speci men Type: BLOOD SPECIMENOrdering Facility: [facility] Address: [address] [place] [address] Performed By: #### 5 7021-8 ####[facility]ITALWNCLIA [id number] [place] [address] [place] Hemoglobin (Bld) [Mass/Vol] 10.4 g/dL Low 11.5-15.5 [facility] Comment on above: Order Comment: Speci men Type: BLOOD SPECIMENOrdering Facility: [facility] Address: [address] [place] [address] Performed By: #### 5 7021-8 ####[facility]IDNCLIA [id number] [place] [address] [place] Immature granulocytes (Bld) [#/Vol] 0.03 10*3/uL Normal <0.10 [facility] Comment on above: Order Comment: Speci men Type: BLOOD SPECIMENOrdering Facility: [facility] Address: [address] [place] [address] Performed By: #### 5 7021-8 ####[facility] [id number] [place] [address] [place] Immature granulocytes/100 WBC (Bld) 0.5 % Normal [facility] Comment on above: Order Comment: Speci men Type: BLOOD SPECIMENOrdering Facility: [facility] Address: [address] [place] [address] Performed By: #### 5 7021-8 ####[facility] [id number] [place] [address] [place] Lymphocytes (Bld) [#/Vol] 1.09 10*3/uL Normal 1.00-4.00 [facility] Comment on above: Order Comment: Speci men Type: BLOOD SPECIMENOrdering Facility: [facility] Address: [address] [place] [address] Performed By: #### 5 7021-8 ####[facility] [id number] [place] [address] [place] Lymphocytes/100 WBC (Bld) 16.9 % Normal [facility] Comment on above: Order Comment: Speci men Type: BLOOD SPECIMENOrdering Facility: [facility] Address: [address] [place] [address] Performed By: #### 5 7021-8 ####[facility]PITALLI [id number] [place] [address] [place] MCH (RBC) [Entitic mass] 24.7 pg Low 26.0-34.0 [facility] Comment on above: Order Comment: Speci men Type: BLOOD SPECIMENOrdering Facility: [facility] Address: [address] [place] [address] Performed By: #### 5 7021-8 ####[facility] [id number] [place] [address] [place] MCHC (RBC) [Mass/Vol] 30.9 g/dL Normal 30.5-36.0 [facility] Comment on above: Order Comment: Speci men Type: BLOOD SPECIMENOrdering Facility: [facility] Address: [address] [place] [address] Performed By: #### 5 7021-8 ####[facility] [id number] [place] [address] [place] MCV (RBC) [Entitic vol] 80.0 fL Normal 80.0-100.0 [facility] Comment on above: Order Comment: Speci men Type: BLOOD SPECIMENOrdering Facility: [facility] Address: [address] [place] [address] Performed By: #### 5 7021-8 ####[facility] [id number] [place] [address] [place] Monocytes (Bld) [#/Vol] 0.47 10*3/uL Normal <0.87 [facility] Comment on above: Order Comment: Speci men Type: BLOOD SPECIMENOrdering Facility: [facility] Address: [address] [place], [place] [address] Performed By: #### 5 7021-8 ####[facility] [id number] [place] [address] [place] Monocytes/100 WBC (Bld) 7.3 % Normal [facility] Comment on above: Order Comment: Speci men Type: BLOOD SPECIMENOrdering Facility: [facility] Address: [address] [place] [address] Performed By: #### 5 7021-8 ####[facility] MILLTOWNCLIA [id number] [place] [address] [place] Neutrophils (Bld) [#/Vol] 4.68 10*3/uL Normal 1.45-7.50 [facility] Comment on above: Order Comment: Speci men Type: BLOOD SPECIMENOrdering Facility: [facility] Address: [address] [place] [address] Performed By: #### 5 7021-8 ####[facility] MILLWNCLIA [id number] [place] [address] [place] Neutrophils/100 WBC (Bld) 72.3 % Normal [facility] Comment on above: Order Comment: Speci men Type: BLOOD SPECIMENOrdering Facility: [facility] Address: [address] [place] [address] Performed By: #### 5 7021-8 ####[facility]ITALWNCLIA [id number] [place] [address] [place] Nucleated RBC (Bld) [#/Vol] 10*3/uL Normal <0.01 [facility] Comment on above: Order Comment: Speci men Type: BLOOD SPECIMENOrdering Facility: [facility] Address: [address] [place] [address] Performed By: #### 5 7021-8 ####[facility] MILLTOWNCLIA [id number] [place] [address] [place] Nucleated RBC/100 WBC (Bld) [Ratio] 0.0 /100 WBC Normal [facility] Comment on above: Order Comment: Speci men Type: BLOOD SPECIMENOrdering Facility: [facility] Address: [address] [place] [address] Performed By: #### 5 7021-8 ####[facility] MILLWNCLIA [id number] [place] [address] [place] Platelet mean volume (Bld) [Entitic vol] 9.5 fL Normal 9.0-12.7 [facility] Comment on above: Order Comment: Speci men Type: BLOOD SPECIMENOrdering Facility: [facility] Address: [address] [place] [address] Performed By: #### 5 7021-8 ####[facility] PLACIDNCA [id number] [place] [address] [place] Platelets (Bld) [#/Vol] 208 10*3/uL Normal 150-400 [facility] Comment on above: Order Comment: Speci men Type: BLOOD SPECIMENOrdering Facility: [facility] Address: [address] [place] [address] Performed By: #### 5 7021-8 ####[facility]IDNCLIA [id number] [place] [address] [place] RBC (Bld) [#/Vol] 4.21 10*6/uL Normal 3.90-5.20 [facility] Comment on above: Order Comment: Speci men Type: BLOOD SPECIMENOrdering Facility: [facility] Address: [address] [place] [address] Performed By: #### 5 7021-8 ####[facility]IDNCLIA [id number] [place] [address] [place] WBC (Bld) [#/Vol] 6.46 10*3/uL Normal 3.70-11.00 [facility] Comment on above: Order Comment: Speci men Type: BLOOD SPECIMENOrdering Facility: [facility] Address: [address] [place] [address] Performed By: #### 5 7021-8 ####[facility]ITALWNCLIA [id number] [place] [address] [place] Ferritin SerPl-mCncon 2023 Ferritin [Mass/Vol] 23.6 ng/mL Normal 14.7-205.1 [facility] Comment on above: Order Comment: David narayanan Type: BLOOD SPECIMENOrdering Facility: [facility] Address: [address] [place] [address] Performed By: #### 2 276-4, 81054-7, 2132-9 ####[facility] LABCLIA [id number] [place] [address] [place] HbA1c (Bld)on 09-25-2023 Average glucose Estimated from glycated hemoglobin (Bld) [Mass/Vol] 146 mg/dL Normal [facility] Comment on above: Order Comment: David narayanan Type: BLOOD SPECIMENOrdering Facility: [facility] Address: [address] [place] [address] Result Comment: eAG: (Estimated average glucose) is a calculated value from HgbA1c and is guest service representative of the average blood glucose level in the last 2-3 month period. Performed By: #### 5 5454-3 ####[facility] LABCLIA [id number] [place] [address] [place] HbA1c (Bld) [Mass fraction] 6.7 % High 4.3-5.6 [facility] Comment on above: Order Comment: David narayanan Type: BLOOD SPECIMENOrdering Facility: [facility] Address: [address] [place] [address] Result Comment: [place] Diabetes Association guidelines indicate that patients with HgbA1c in the range 5.7-6.4% are at increased risk for development of diabetes, and intervention by lifestyle modification may be beneficial. HgbA1c greater or equal to 6.5% is considered diagnostic of diabetes. Performed By: #### 5 5454-3 ####[facility] LABCLIA [id number] [place] [address] [place] Iron and Iron binding capaci ty panelon 09-25-2023 Iron [Mass/Vol] 45 ug/dL Normal 41-186 [facility] Comment on above: Order Comment: Speci men Type: BLOOD SPECIMENOrdering Facility: [facility] Address: [address] [place] [address] Performed By: #### 2 276-4, 71108-2, 2131-10 ####[facility] LABCLIA [id number] [place] [address] [place] Iron binding capacity [Mass/Vol] 427 ug/dL High 232-386 [facility] Comment on above: Order Comment: Speci men Type: BLOOD SPECIMENOrdering Facility: [facility] Address: [address] [place] [address] Performed By: #### 2 276-4, 83945-1, 2131-10 ####[facility] LABCLIA [id number] [place] [address] [place] Iron/TIBC [Molar ratio] 10.5 % Low 15.0-57.0 [facility] Comment on above: Order Comment: Speci men Type: BLOOD SPECIMENOrdering Facility: [facility] Address: [address] [place] [address] Performed By: #### 2 276-4, 95501-4, 2131-10 ####[facility] LABCLIA [id number] [place] [address] [place] Magnesium SerPl-mCncon 09-24 Magnesium [Mass/Vol] 1.2 mg/dL Low 1.7-2.3 [facility] Comment on above: Order Comment: Speci men Type: BLOOD SPECIMENOrdering Facility: [facility] Address: [address] [place] [address] Performed By: #### 2 4321-2, 83791-6 ####[facility] LAURA RENDONWWILFRED [id number] [place] [address] [place] TOXICOLOGY SCREEN, ROUTINE U RINEon 09-25-2023 Amphetamines Confirm (U) [Mass/Vol] Negative Normal Negative [facility] Comment on above: Order Comment: Speci men Type: URINE SPECIMENOrdering Facility: [facility] Address: [address] [place] [address] Result Comment: Cuto ff threshold at 1000 ng/mL. Performed By: #### U TOX2, UACR ####[facility] LABCLIA [id number] [place] [address] [place] BARBITURATES, URINE Negative Normal Negative [facility] Comment on above: Order Comment: Speci men Type: URINE SPECIMENOrdering Facility: [facility] Address: [address] [place] [address] Result Comment: Cuto ff threshold at 200 ng/mL. Performed By: #### U TOX2, UACR ####[facility] LABCLIA [id number] [place] [address] [place] BENZODIAZEPINES, UR Negative Normal Negative [facility] Comment on above: Order Comment: Speci men Type: URINE SPECIMENOrdering Facility: [facility] Address: [address] [place] [address] Result Comment: Cuto ff threshold at 200 ng/mL. Performed By: #### U TOX2, UACR ####[facility] LABCLIA [id number] [place] [address] [place] Cannabinoids Screen Ql (U) Negative Normal Negative [facility] Comment on above: Order Comment: Speci men Type: URINE SPECIMENOrdering Facility: [facility] Address: [address] [place] [address] Result Comment: Cuto ff threshold at 50 ng/mL. Performed By: #### U TOX2, UACR ####[facility] LABCLIA [id number] [place] [address] [place] Cocaine Ql (U) Negative Normal Negative [facility] Comment on above: Order Comment: Speci men Type: URINE SPECIMENOrdering Facility: [facility] Address: [address] [place] [address] Result Comment: Cuto ff threshold at 300 ng/mL. Performed By: #### U TOX2, UACR ####[facility] LABCLIA [id number] [place] [address] [place] Ethanol (U) [Mass/Vol] <11 Normal <11 [facility] Comment on above: Order Comment: Speci men Type: URINE SPECIMENOrdering Facility: [facility] Address: [address] [place] [address] Performed By: #### U TOX2, UACR ####[facility] LABCLIA [id number] [place] [address] [place] Opiates Screen Ql (U) Positive Abnormal Negative [facility] Comment on above: Order Comment: Speci men Type: URINE SPECIMENOrdering Facility: [facility] Address: [address] [place] [address] Result Comment: Cuto ff threshold at 300 ng/mL. Performed By: #### U TOX2, UACR ####[facility] LABCLIA [id number] [place] [address] [place] oxyCODONE cutoff Screen (U) [Mass/Vol] Negative Normal Negative [facility] Comment on above: Order Comment: Speci men Type: URINE SPECIMENOrdering Facility: [facility] Address: [address] [place] [address] Result Comment: Cuto ff threshold at 100 ng/mL. Performed By: #### U TOX2, UACR ####[facility] LABCLIA [id number] [place] [address] [place] Phencyclidine Ql (U) Negative Normal Negative [facility] Comment on above: Order Comment: Speci men Type: URINE SPECIMENOrdering Facility: [facility] Address: [address] [place] [address] Result Comment: Cuto ff threshold at 25 ng/mL. Performed By: #### U TOX2, UACR ####[facility] LABCLIA [id number] [place] [address] [place] Vit B12 SerPl-mCncon 024 Cobalamin (Vitamin B12) [Mass/Vol] 366 pg/mL Normal 232-1245 [facility] Comment on above: Order Comment: Speci men Type: BLOOD SPECIMENOrdering Facility: [facility] Address: [address] [place] [address] [place] [address] Performed By: #### 2 276-4, 94288-4, 2132-9 ####[facility] LABCLIA [id number] [address] [place] CNPMaría Elena 09-23-2023 [email or web address] CYNDI MEJIA ([id number]) 1935 F Date Time Provider Department 09/23/23 SHAQUILLE BENJAMIN [facility] During your visit today, we recorded the following information about you: Macy Badillo LPN 09/23/2023 3:12 PM Signed Lori sends fax asking for ST order with hx of dysphagia. Left message for Rula daughter in law to contact office back. Do they feel this is something that should be done or not? Zoila Parada LPN 09/25/2023 9:57 AM Signed KATHY Mejia called back to report she spoke to pt AND pt does not want to pursue this test, order can be canceled. MOOK Hanna William J, MD 09/25/2023 10:13 AM Signed Let them know Macy Badillo LPN 09/25/2023 12:22 PM Signed Done. Allergies As of Date: 09/23/2023 Noted Allergy Reaction JANUVIA (SITAGLIPTIN) 10/14/2017 4 - Hives PENICILLIN 10/14/2017 4 - Hives Date Reviewed: 09/20/2023 Reviewed by: Macy Badillo LPN - Fully Assessed Reason for Visit: Orders [681] Prescriptions as of 09/25/2023 - Magnesium Glycinate (MAG GLYCINATE) 100 mg tab Take 1 tablet by mouth once daily. - losartan (COZAAR) 25 mg tablet Take 1 tablet by mouth once daily. - HYDROcodone-Acetaminoph en (NORCO) 7.5-325 mg per tablet Take 1 tablet by mouth every 8 hours as needed for pain for up to 30 days. - pantoprazole DR (PROTONIX) 20 mg tablet Take 1 tablet by mouth two times a day. - citalopram (CELEXA) 20 mg tablet Take 1 tablet by mouth once daily. - metFORMIN ER (GLUCOPHAGE XR) 500 mg 24 hr tablet Take 1 tablet by mouth daily with breakfast. - atorvastatin (LIPITOR) 20 mg tablet Take 1 tablet by mouth once daily. - nebivolol (BYSTOLIC) 5 mg tablet Take 1 tablet by mouth once daily. - levothyroxine (SYNTHROID) 25 mcg tablet Take 1 tablet by mouth once daily. Take on empty stomach. For thyroid. - traZODone (DESYREL) 50 mg tablet Take 1 tablet by mouth daily at bedtime. - blood sugar diagnostic (BLOOD GLUCOSE TEST) test strip Test blood sugar(s) 1 times daily. Dx: Type 2 DM - Controlled E11.9 Insulin: No - BABY ASPIRIN ORAL Take 81 mg by mouth once daily. - Lancets lancets Test blood sugar(s) 1 times daily. Dx: Type 2 DM - E11.8 Insulin: No - cyanocobalamin (VITAMIN B-12) 1,000 mcg tab Take 1,000 mcg by mouth once daily. - ubidecarenone Q-10 (COENZYME Q-10) 10 mg cap Take 50 mg by mouth twice daily. - Cholecalciferol, Vitamin D3, 50 mcg (2,000 unit) cap Take by mouth. 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] 10/16/2017 CAD (coronary artery disease) [I25.10] 10/16/2017 Hyperlipidemia, mixed [E78.2] 10/16/2017 ELKIN (obstructive sleep apnea) [G47.33] 10/16/2017 Hypertensive heart disease with heart failure (*10/16/2017 Hypomagnesemia [E83.42] 10/16/2017 Hyponatremia [E87.1] 10/16/2017 Chronic thoracic back pain [M54.6, G89.29] 01/29/2018 Risk for falls [Z91.81] 01/30/2018 03/07/2022 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] 10/08/2018 Bilateral carotid artery stenosis [I65.23] 11/06/2018 History of CVA in adulthood [Z86.73] 02/19/2019 Dysphagia [R13.10] 02/19/2019 Generalized weakness [R53.1] 12/06/2021 01/17/2022 Lumbar spinal stenosis [M48.061] 07/30/2022 Closed fracture of orbital floor (HCC) [S02.30X*11/07/2022 Closed head injury [S09.90XA] 11/07/2022 02/06/2023 Fall [W19.XXXA] 11/07/2022 11/07/2022 History of cardiovascular disorder [Z86.79] 09/25/2022 History of coronary artery bypass surgery [Z95.*11/07/2022 History of major vascular surgery [Z98.890] 09/25/2022 Lesion of esophagus [K22.9] 11/07/2022 11/07/2022 Mass of neck [R22.1] 11/08/2021 11/07/2022 Pure hypercholesterolemia [E78.00] 09/25/2022 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] 06/07/2022 Other specified anemias [D64.89] 11/07/2022 Encounter Status:Closed by MACY BADILLO on 09/25/23 Normal [facility] CNOVon 09-20-2023 [facility] Office Visit (FAMPWS ) CYNDI MEJIA ([id number]) 1935 F Date Time Provider Department 09/20/23 3:40 PM [facility] During your visit today, we recorded the following information about you: Pulse Blood pressure Weight 68/minute 120/68 75.3 kg Shaquille Benjamin MD 09/20/2023 5:39 PM Signed Patient presents with: Follow Up HPI: Patient presents today for office visit for follow up. Has not done as well since having to move to a studio apartment. Not as happy. Upset with lack of privacy. Feels "lousy" in general. Diabetes: Checking glucose once daily. HTN: Patient is compliant with meds Yes Monitors bp at home: Yes. Denies side effects: Yes. Chest pain: No. Dyspnea: No. Edema: No. Palpitations: No. Syncope: No. Headache: No. Dizziness: No. Has had a few gagging and choking episodes at the table. So has not gone as much to dinner. Had an appt done in Jan by Dr Kirkland. Declines repeat evaluation. Had been eating chocolate and coffee again. Discussed limiting caffeine. Protonix is back at bid. Not taking mag No falls. Using a lactose free milk and watching diet. Does have occasional loose stools. Pain is ok most of the time. Has been on for some time chronically Helps with ADLs Has some joint pain. Note was copied and pasted, without alteration from: previous ov: HLD: Current medication: Atorvastatin 20 mg daily No myalgias HTN: Current medications: Losartan 25 mg daily Nebivolol 5 mg daily [place] nurse checks BP occ. Stable. Denies chest pain and shortness of breath. Denies headaches and dizziness. Denies palpitations and syncope. Denies edema. DM: Current medications: Metformin 500 mg daily Checks sugars every morning. THYROID: Current medication: Levothyroxine 25 mcg daily Stable No energy. Unchanged. Mentions "I'm just weak" Ambulates with walker No falls. Appetite is ok. Has a protein shake for breakfast and lunch and then a full meal at dinner. Continues on Trazadone for sleep. Sleeping well. Sleeping through the night. Notes has to get up once or twice to urinate. Continues on Citalopram 20 mg daily. Moods have been lousy. Mentions she doesn't have any ambition. Sits a lot during the day. States "what else am I going to do" Discussed SAD. Discussed getting out as the weather improves. Has hx of hypomag and hyponatremia. Has seen nephrology for the same. We have adjusted meds before. Pain still bothers her some. Mostly knee Oarr done. Uses meds prn. Helps her to function. Has done controlled substance agreement. No misuse or abuse. No dysphagia. Cancelled her last appt with Dr Isael. Has decaffeinated and it helps. Still following with Cardiology. Saw recently. Will be seeing a new cardiology in [place] [facility]. MEDICATIONS: Current Outpatient Medications Medication Sig losartan (COZAAR) 25 mg tablet Take 1 tablet by mouth once daily. HYDROcodone-Acetaminoph en (NORCO) 7.5-325 mg per tablet Take 1 tablet by mouth every 8 hours as needed for pain for up to [address] (PROTONIX) 20 mg tablet Take 1 tablet by mouth two times a day. citalopram (CELEXA) 20 mg tablet Take 1 tablet by mouth once daily. metFORMIN ER (GLUCOPHAGE XR) 500 mg 24 hr tablet Take 1 tablet by mouth daily with breakfast. atorvastatin (LIPITOR) 20 mg tablet Take 1 tablet by mouth once daily. nebivolol (BYSTOLIC) 5 mg tablet Take 1 tablet by mouth once daily. levothyroxine (SYNTHROID) 25 mcg tablet Take 1 tablet by mouth once daily. Take on empty stomach. For thyroid. traZODone (DESYREL) 50 mg tablet Take 1 tablet by mouth daily at bedtime. Magnesium 200 mg tab As a gummy-take 2 po bid BABY ASPIRIN ORAL Take 81 mg by mouth once daily. Cholecalciferol, Vitamin D3, 50 mcg (2,000 unit) cap Take by mouth. blood sugar diagnostic (BLOOD GLUCOSE TEST) test strip Test blood sugar(s) 1 times daily. Dx: Type 2 DM - Controlled E11.9 Insulin: No Lancets lancets Test blood sugar(s) 1 times daily. Dx: Type 2 DM - E11.8 Insulin: No cyanocobalamin (VITAMIN B-12) 1,000 mcg tab Take 1,000 mcg by mouth once daily. ubidecarenone Q-10 (COENZYME Q-10) 10 mg cap Take 50 mg by mouth twice daily. No current facility-administered medications for this visit. 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 Normal [facility] Comprehensive metabolic 2000 panelon 05-22-2023 Albumin [Mass/Vol] 4.1 g/dL 3.9 - 4.9 g/dL [facility] ALP [Catalytic activity/Vol] 72 U/L 34 - 123 U/L [facility] ALT [Catalytic activity/Vol] 9 U/L 7 - 38 U/L [facility] Anion gap [Moles/Vol] 12 mmol/L 9 - 18 mmol/L [facility] AST [Catalytic activity/Vol] 18 U/L 13 - 35 U/L [facility] Bilirubin [Mass/Vol] 0.4 mg/dL 0.2 - 1 .3 mg/dL [facility] Calcium [Mass/Vol] 9.5 mg/dL 8.5 - 10. 2 mg/dL [facility] Chloride [Moles/Vol] 92 mmol/L Low 97 - 10 5 mmol/L [facility] CO2 [Moles/Vol] 25 mmol/L 22 - 30 mmol/L [facility] Creatinine [Mass/Vol] 0.85 mg/dL 0.58 - 0.96 mg/dL [facility] Estimated Glomerular Filtration Rate 66 mL/min/1.73m >=60 mL/min/1.73m [facility] Glucose [Mass/Vol] 165 mg/dL High 74 - 99 mg/dL [facility] Potassium [Moles/Vol] 4.8 mmol/L 3.7 - 5.1 mmol/L [facility] Protein [Mass/Vol] 7.2 g/dL 6.3 - 8.0 g/dL [facility] Sodium [Moles/Vol] 129 mmol/L Low 136 - 144 mmol/L [facility] Urea nitrogen [Mass/Vol] 13 mg/dL 7 - 21 mg/dL [facility] HbA1c (Bld)on 05-22-2023 Average glucose Estimated from glycated hemoglobin (Bld) [Mass/Vol] 143 mg/dL [facility] HbA1c (Bld) [Mass fraction] 6.6 % High 4.3 - 5.6 % [facility] LIPID PANEL, NONFASTINGon Cholesterol [Mass/Vol] 154 mg/dL <200 mg/dL [facility] HDL Cholesterol, Nonfasting 74 mg/dL >39 mg/dL [facility] LDL Cholesterol, Nonfasting 37 mg/dL <100 mg/dL [facility] LDL/HDL Ratio, Nonfasting 0.50 mg/dL <2.54 mg/dL [facility] Non HDL Cholesterol, Nonfasting 80 mg/dL <130 mg/dL [facility] Total Chol/HDL Ratio, Nonfasting 2.08 mg/dL <5.10 mg/dL [facility] Triglycerides, Nonfasting 213 mg/dL High <150 mg/dL [facility] VLDL Cholesterol, Nonfasting 43 mg/dL High <30 mg/dL [facility] MAGNESIUM Don 05-22-2023 Magnesium [Mass/Vol] 1.3 mg/dL Low 1.7 - 2 .3 mg/dL [facility] TSH Don 05-22-2023 TSH Qn 3.410 m[IU]/L 0.270 - 4.200 mIU/L [facility] VITAMIN B12 BLOODon 05-22-19 Cobalamin (Vitamin B12) [Mass/Vol] 364 pg/mL 232 - 1,245 pg/mL [facility] CBC W Auto Differential pane l (Bld)on 05-21-2023 Basophils (Bld) [#/Vol] 0.05 10*3/uL <0.11 k/uL [facility] Basophils/100 WBC (Bld) 0.5 % [facility] Differential cell count method Nom (Bld) Auto [facility] Eosinophils (Bld) [#/Vol] 0.15 10*3/uL <0.46 k/uL [facility] Eosinophils/100 WBC (Bld) 1.6 % [facility] Erythrocyte distribution width (RBC) [Ratio] 15.4 % High 11.5 - 15.0 % [facility] Hematocrit (Bld) [Volume fraction] 34.1 % Low 36.0 - 46.0 % [facility] Hemoglobin (Bld) [Mass/Vol] 10.2 g/dL Low 11.5 - 15.5 g/dL [facility] Immature granulocytes (Bld) [#/Vol] 0.04 10*3/uL <0.10 k/uL [facility] Immature granulocytes/100 WBC (Bld) 0.4 % [facility] Lymphocytes (Bld) [#/Vol] 1.41 10*3/uL 1.00 - 4.00 k/uL [facility] Lymphocytes/100 WBC (Bld) 15.5 % [facility] MCH (RBC) [Entitic mass] 24.5 pg Low 26.0 - 34.0 pg [facility] MCHC (RBC) [Mass/Vol] 29.9 g/dL Low 30.5 - 36.0 g/dL [facility] MCV (RBC) [Entitic vol] 82.0 fL 80.0 - 100.0 fL [facility] Monocytes (Bld) [#/Vol] 0.75 10*3/uL <0.87 k/uL [facility] Monocytes/100 WBC (Bld) 8.2 % [facility] Neutrophils (Bld) [#/Vol] 6.70 10*3/uL 1.45 - 7.50 k/uL [facility] Neutrophils/100 WBC (Bld) 73.8 % [facility] Nucleated RBC (Bld) [#/Vol] <0.01 k/uL [facility] Nucleated RBC/100 WBC (Bld) [Ratio] 0.0 /100 WBC [facility] Platelet mean volume (Bld) [Entitic vol] 9.7 fL 9.0 - 12.7 fL [facility] Platelets (Bld) [#/Vol] 256 10*3/uL 150 - 400 k/uL [facility] RBC (Bld) [#/Vol] 4.16 10*6/uL 3.90 - 5.2 0 m/uL [facility] WBC (Bld) [#/Vol] 9.10 10*3/uL 3.70 - 11. 00 k/uL [facility] Glucose Glucometer (BldC) [M ass/Vol]on 11-01-2021 Glucose [Mass/Vol] 133 mg/dL 74-106 [facility] Work Phone: Comment on above: MANAGEMENT OF PATIEN T CARE PER NURSING PROTOCOL Vital Signs Date Time Vital Sign Value Performing Clinician Anamika tate 01-29-2024 13:35-0500 Body height 170.2 cm Shaquille Benjamin MD Work Phone: [facility] 01-29-2024 13:35-0500 Body mass index (BMI) [Ratio] 24.87 kg/m2 Shaquille Benjamin MD Work Phone: [facility] 01-29-2024 13:35-0500 Body weight 72.03 kg Shaquille Benjamin MD Work Phone: [facility] 01-29-2024 13:35-0500 Diastolic blood pressure 52 mm[Hg] Shaquille Benjamin MD Work Phone: [facility] 01-29-2024 13:35-0500 Heart rate 84 /min Shaquille Benjamin MD Work Phone: [facility] 01-29-2024 13:35-0500 SaO2% (BldA) [Mass fraction] 96 % Shaquille Benjamin MD Work Phone: [facility] 01-29-2024 13:35-0500 Systolic blood pressure 98 mm[Hg] Shaquille Benjamin MD Work Phone: [facility] 12-05-2023 13:12-0400 Body temperature 97.2 [degF] Jacob Moomaw [employer]S [employer]ACH Work Phone: [facility] 12-05-2023 13:12-0400 Diastolic blood pressure 72 mm[Hg] Jacob Moomaw [employer]S [employer]ACH Work Phone: [facility] 12-05-2023 13:12-0400 Heart rate 87 /min Jacob Moomaw [employer]S [employer]ACH Work Phone: [facility] 12-05-2023 13:12-0400 Respiratory rate 18 /min Jacob Moomaw [employer]S SW[employer]OL[employer] COACH Work Phone: [facility] 12-05-2023 13:12-0400 SaO2% (BldA) [Mass fraction] 98 % Jacob Moomaw [employer]S SW[employer]OLF COACH Work Phone: [facility] 12-05-2023 13:12-0400 Systolic blood pressure 147 mm[Hg] Jacob Moomaw [employer]S SW[employer]ACH[employer]OLF COACH Work Phone: [facility] 09-20-2023 15:27-0400 Body mass index (BMI) [Ratio] 26 kg/m2 Shaquille Benjamin MD Work Phone: [facility] 09-20-2023 15:27-0400 Body weight 75.3 kg Shaquille Benjamin MD Work Phone: [facility] 09-20-2023 15:27-0400 Diastolic blood pressure 68 mm[Hg] Shaquille Benjamin MD Work Phone: [facility] 09-20-2023 15:27-0400 Heart rate 68 /min Shaquille Benjamin MD Work Phone: [facility] 09-20-2023 15:27-0400 SaO2% (BldA) [Mass fraction] 98 % Shaquille Benjamin MD Work Phone: [facility] 09-20-2023 15:27-0400 Systolic blood pressure 120 mm[Hg] Shaquille Benjamin MD Work Phone: [facility] 05-21-2023 15:36-0400 Body height 170.2 cm Shaquille Benjamin MD Work Phone: [facility] 05-21-2023 15:36-0400 Body weight 77.56 kg Shaquille Benjamin MD Work Phone: [facility] 05-21-2023 15:36-0400 Diastolic blood pressure 72 mm[Hg] Shaquille Benjamin MD Work Phone: [facility] 05-21-2023 15:36-0400 Heart rate 64 /min Shaquille Benjamin MD Work Phone: [facility] 05-21-2023 15:36-0400 SaO2% (BldA) [Mass fraction] 98 % Shaquille Benjamin MD Work Phone: [facility] 05-21-2023 15:36-0400 Systolic blood pressure 146 mm[Hg] Shaquille Benjamin MD Work Phone: [facility] 11-07-2022 13:51-0400 Body height 170.2 cm Shaquille Benjamin MD Work Phone: [facility] 11-07-2022 13:51-0400 Body weight 73.48 kg Shaquille Benjamin MD Work Phone: [facility] 11-07-2022 13:51-0400 Diastolic blood pressure 94 mm[Hg] Shaquille Benjamin MD Work Phone: [facility] 11-07-2022 13:51-0400 Heart rate 64 /min Shaquille Benjamin MD Work Phone: [facility] 11-07-2022 13:51-0400 SaO2% (BldA) [Mass fraction] 99 % Shaquille Benjamin MD Work Phone: [facility] 11-07-2022 13:51-0400 Systolic blood pressure 188 mm[Hg] Shaquille Benjamin MD Work Phone: [facility] 07-30-2022 13:07-0400 Diastolic blood pressure 72 mm[Hg] Shaquille Benjamin MD Work Phone: [facility] 07-30-2022 13:07-0400 Heart rate 74 /min Shaquille Benjamin MD Work Phone: [facility] 07-30-2022 13:07-0400 SaO2% (BldA) [Mass fraction] 98 % Shaquille Benjamin MD Work Phone: [facility] 07-30-2022 13:07-0400 Systolic blood pressure 138 mm[Hg] Shaquille Benjamin MD Work Phone: [facility] 06-06-2022 13:32-0400 Body weight 74.84 kg Shaquille Benjamin MD Work Phone: [facility] 06-06-2022 13:32-0400 Diastolic blood pressure 72 mm[Hg] Shaquille Benjamin MD Work Phone: [facility] 06-06-2022 13:32-0400 Heart rate 78 /min Shaquille Benjamin MD Work Phone: [facility] 06-06-2022 13:32-0400 SaO2% (BldA) [Mass fraction] 97 % Shaquille Benjamin MD Work Phone: [facility] 06-06-2022 13:32-0400 Systolic blood pressure 142 mm[Hg] Shaquille Benjamin MD Work Phone: [facility] 03-07-2022 13:53-0500 Body height 170.2 cm Shaquille Benjamin MD Work Phone: [facility] 03-07-2022 13:53-0500 Body weight 74.84 kg Shaquille Benjamin MD Work Phone: [facility] 03-07-2022 13:53-0500 Diastolic blood pressure 58 mm[Hg] Shaquille Benjamin MD Work Phone: [facility] 03-07-2022 13:53-0500 Heart rate 64 /min Shaquille Benjamin MD Work Phone: [facility] 03-07-2022 13:53-0500 SaO2% (BldA) [Mass fraction] 98 % Shaquille Benjamin MD Work Phone: [facility] 03-07-2022 13:53-0500 Systolic blood pressure 116 mm[Hg] Shaquille Benjamin MD Work Phone: [facility] 11-08-2021 15:16-0400 Body weight 74.39 kg Shaquille Benjamin MD Work Phone: [facility] 11-08-2021 15:16-0400 Diastolic blood pressure 72 mm[Hg] Shaquille Benjamin MD Work Phone: [facility] 11-08-2021 15:16-0400 Heart rate 84 /min Shaquille Benjamin MD Work Phone: [facility] 11-08-2021 15:16-0400 Systolic blood pressure 120 mm[Hg] Shaquille Benjamin MD Work Phone: [facility] 11-01-2021 07:15-0400 Body temperature 97.2 [degF] Dr. Shaquille Benjamin Work Phone: [facility] Work Phone: 11-01-2021 07:15-0400 Diastolic blood pressure 77 mm[Hg] Dr. Shaquille Benjamin Work Phone: [facility] Work Phone: 11-01-2021 07:15-0400 Heart rate 63 /min Dr. Shaquille Benjamin Work Phone: [facility] Work Phone: 11-01-2021 07:15-0400 Respiratory rate 16 /min Dr. Shaquille Benjamin Work Phone: [facility] Work Phone: 11-01-2021 07:15-0400 SaO2% (BldA) [Mass fraction] 97 % Dr. Shaquille Benjamin Work Phone: [facility] Work Phone: 11-01-2021 07:15-0400 Systolic blood pressure 182 mm[Hg] Dr. Shaquille Benjamin Work Phone: [facility] Work Phone: 11-01-2021 06:03-0400 Body height 167.[address] Shaquille Benjamin Work Phone: [facility] Work Phone: 11-01-2021 06:03-0400 Body mass index (BMI) [Ratio] 26.4 kg/m2 Dr. Shaquille Benjamin Work Phone: [facility] Work Phone: 11-01-2021 06:03-0400 Body weight 74.[address] Shaquille Benjamin Work Phone: [facility] Work Phone: 08-09-2021 15:31-0400 Body weight 78.02 kg Shaquille Benjamin MD Work Phone: [facility] 08-09-2021 15:31-0400 Diastolic blood pressure 72 mm[Hg] Shaquille Benjamin MD Work Phone: [facility] 08-09-2021 15:31-0400 Heart rate 80 /min Shaquille Benjamin MD Work Phone: [facility] 08-09-2021 15:31-0400 Systolic blood pressure 132 mm[Hg] Shaquille Benjamin MD Work Phone: [facility] Encounters Encounter Date Encounter Type Care Provider Facility Start: 09-01-2024 End: 09-01-[address] Shaquille Benjamin MD Work Phone: -[facility] Start: 09-01-2024 End: 09-01-[address] Senia Billy MD -[facility] Work Phone: Start: 08-11-2024 ambulatory Senia CHACKO Facility:[facility] Start: 08-11-2024 Registered Referred Senia Billy MD -[facility] Start: 08-04-2024 End: 08-04-2024 ambulatory Shaquille [facility]ACKO [facility] Start: 08-04-2024 End: 08-04-[address] Senia Billy MD -[facility] Work Phone: Start: 07-08-2024 End: 07-08-[address] Shaquille Benjamin MD Work Phone: -[facility] Start: 07-08-2024 End: 07-08-2024 Patient encounter procedure Oly MANTILLA -[facility] Work Phone: Start: 06-30-2024 End: 06-30-2024 Patient encounter procedure Oly MANTILLA -[facility] Work Phone: Start: 06-30-2024 End: 06-30-[address] Shaquille Benjamin MD Work Phone: [facility] Start: 06-30-2024 [facility] Start: 06-23-2024 ambulatory Senia CHACKO Facility:[facility] Start: 06-23-2024 [facility] Start: 06-22-2024 End: 06-22-2024 [facility] [place] Start: 06-22-2024 End: 06-22-2024 Patient encounter procedure [facility] [place] Comment on above: Population Health Na vigation Outreach ([facility] ) Start: 06-16-2024 ambulatory Senia CHACKO Facility:[facility] Start: 06-16-2024 [facility] Start: 06-10-2024 [facility] Start: 06-10-2024 [facility] Start: 06-02-2024 ambulatory [facility] Start: 06-02-2024 [facility] Start: 05-27-2024 ambulatory [facility] Start: 05-27-2024 [facility] Start: 05-22-2024 End: 05-22-2024 ambulatory Loraine Patterson RN [employer] Comment on above: Single outreach for Chronic Disease Management Start: 05-20-2024 End: 05-20-2024 Patient encounter procedure [facility] [place] Comment on above: [facility] Start: 05-20-2024 End: 05-20-2024 ambulatory [facility] [place] Start: 05-20-2024 [facility] Start: 05-12-2024 ambulatory Senia simeon OLS Facility:[facility] Start: 05-07-2024 End: 05-07-2024 ambulatory Shaquille Benjamin Facility:[facility] Start: 05-05-2024 End: 05-05-2024 ambulatory Senia Billy Facility:[facility] Start: 05-04-2024 End: 05-04-2024 ambulatory Olyrufus Jane SIMON Facility:[facility] Start: 05-01-2024 End: 05-01-2024 ambulatory Loraine Patterson RN [employer] Comment on above: Bi-Weekly Outreach ( Recurring) for Chronic Disease Management Start: 04-28-2024 ambulatory Lg Kirkland Facility :[facility] Start: 04-19-2024 End: 05-01-2024 Evaluation and management of inpatient JUAN ROSS MD [facility] Facility:[facility] Start: 04-16-2024 ambulatory Nichole Bautista Facility :[facility] Start: 04-16-2024 End: 04-19-2024 Evaluation and management of inpatient Nichole Bautista Facility:[facility] Start: 04-08-2024 End: 04-08-2024 ambulatory Carissa Larson RN Work Phone: [employer] Comment on above: Bi-Weekly Outreach ( Recurring) for Chronic Disease Management Start: 03-25-2024 End: 03-25-2024 ambulatory Loraine Patterson RN Public Relations Analyst Management Comment on above: Initial enrollment o swathi for Chronic Disease Management Start: 03-15-2024 End: 03-16-2024 Refill Shaquille Benjamin MD Work Phone: [facility] Comment on above: Refill Request Start: 02-27-2024 End: 02-27-2024 ambulatory [facility] Facility:[facility] Start: 02-26-2024 End: 02-27-2024 [facility] Get Medical Advice Shaquille Benjamin MD Work Phone: [facility] Comment on above: [place] refill. Refill Request Start: 02-07-2024 End: 02-07-2024 ambulatory Shaquille [place] Facility:[facility] Start: 01-29-2024 End: 01-29-2024 ambulatory SHAQUILLE BENJAMIN Facility:[facility] Start: 01-29-2024 End: 01-29-2024 Patient encounter procedure Shaquille Benjamin MD Work Phone: [facility] [place] Comment on above: Essential hypertensi on (Primary Dx); Coronary artery disease involving grayling heart without angina pectoris, unspecified vessel or lesion type; Hyperlipidemia, mixed; Tachycardia-bradycardia (HCC); ELKIN (obstructive sleep apnea); Zenker diverticulum; Vitamin B12 deficiency; GERD without esophagitis; Hypomagnesemia; Type 2 diabetes mellitus with complication, without long-term current use of insulin (HCC); Subclinical hypothyroidism; Anemia due to other cause, not classified; Chronic thoracic back pain, unspecified back pain laterality; Primary osteoarthritis of both knees; Spinal stenosis of lumbar region, unspecified whether neurogenic claudication present; Major depressive disorder, recurrent, in partial remission (HCC); Hyponatremia; Bilateral carotid artery stenosis Start: 12-30-2023 End: 12-30-2023 Telephone encounter Shaquille Benjamin MD Work Phone: [facility] [place] Comment on above: Orders Start: 12-24-2023 End: 12-24-2023 [facility] Shaquille Benjamin MD Work Phone: [facility] Comment on above: Gait disturbance (Pr imary Dx); Major depressive disorder, recurrent, in partial remission (HCC); 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); Anxiety with depression; Spinal stenosis of lumbar region, unspecified whether neurogenic claudication present; Chronic thoracic back pain, unspecified back pain laterality; Acute midline thoracic back pain; Osteoarthritis of both knees, unspecified osteoarthritis type Start: 12-14-2023 End: 12-16-2023 ambulatory Shaquille Benjamin MD Work Phone: [facility] [facility] Comment on above: Pain Start: 12-12-2023 End: 12-13-2023 Get Medical Advice Shaquille Benjamin MD [facility] Comment on above: Trazodone refill Start: 12-05-2023 End: 12-05-2023 ambulatory SHAQUILLE BENJAMIN Facility:[facility] Start: 12-05-2023 End: 12-05-2023 Patient encounter procedure Jacob Moomaw MEN'S SWIM COACH.GOLF COACH [facility] Comment on above: Strain of lumbar reg ion, initial encounter (Primary Dx) Start: 11-30-2023 End: 12-02-2023 Refill Shaquille Benjamin MD Work Phone: [facility] Comment on above: Refill Request Start: 11-29-2023 End: 11-29-2023 Refill Shaquille Benjamin MD Work Phone: [facility] Comment on above: Refill Request Start: 11-11-2023 End: 11-11-2023 Refill Shaquille Benjamin MD Work Phone: [facility] Comment on above: Refill Request Start: 10-29-2023 End: 10-29-2023 ambulatory [facility] Facility:[facility] Start: 10-29-2023 End: 10-29-2023 Patient encounter procedure Jocelyn Zev Work Phone: Podiatry Comment on above: Type 2 diabetes ashwini itus with complication, without long-term current use of insulin (HCC) (Primary Dx); Onychomycosis; Diminished pulses in lower extremity Start: 10-28-2023 End: 10-29-2023 Refill Shaquille Benjamin MD Work Phone: [facility] Comment on above: Refill Request Start: 09-26-2023 Telephone encounter Shaquille Benjamin MD Work Phone: [facility] Comment on above: Results Start: 09-25-2023 End: 09-25-2023 ambulatory [facility] Facility:[facility] Start: 09-23-2023 Telephone encounter Shaquille Benjamin MD Work Phone: [facility] Comment on above: Orders Start: 09-20-2023 End: 09-20-2023 Patient encounter procedure Shaquille Benjamin MD Work Phone: [facility] Comment on above: Tachycardia-bradycar geeta (HCC) (Primary Dx); Pure hypercholesterolemia; ELKIN (obstructive sleep apnea); History of coronary artery bypass surgery; History of major vascular surgery; Vitamin B12 deficiency; Zenker diverticulum; GERD without esophagitis; Type 2 diabetes mellitus with complication, without long-term current use of insulin (HCC); Hypomagnesemia; Subclinical hypothyroidism; Hyponatremia; Onychomycosis; Anemia, unspecified type; Medication monitoring encounter; Encounter for screening examination for other mental health and behavioral disorders Start: 09-20-2023 End: 09-20-2023 ambulatory SHAQUILLE BENJAMIN Facility:[facility] Start: 09-16-2023 Refill Shaquille Benjamin MD Work Phone: [facility] Comment on above: Refill Request Start: 08-27-2023 Refill Shaquille Benjamin MD Work Phone: [facility] Comment on above: Refill Request Start: 08-05-2023 Refill Shaquille Benjamin MD Work Phone: [facility] Comment on above: Refill Request Start: 06-10-2023 Refill Shaquille Benjamin MD Work Phone: [facility] Comment on above: Refill Request Start: 06-03-2023 Refill Shaquille Benjamin MD Work Phone: [facility] Comment on above: Refill Request Start: 05-21-2023 End: 05-21-2023 Patient encounter procedure Shaquille Benjamin MD Work Phone: [facility] Comment on above: Essential hypertensi on (Primary Dx); Coronary artery disease involving grayling heart without angina pectoris, unspecified vessel or lesion type; Hyperlipidemia, mixed; Vitamin B12 deficiency; Type 2 diabetes mellitus with complication, without long-term current use of insulin (HCC); Hypomagnesemia; Subclinical hypothyroidism; Bilateral carotid artery stenosis; Zenker diverticulum; Tachycardia-bradycardia (HCC); Pure hypercholesterolemia; Depression, unspecified depression type; Hyponatremia; Need for vaccination Start: 11-07-2022 End: 11-07-2022 Patient encounter procedure Shaquille Benjamin MD Work Phone: [facility] Comment on above: Coronary artery dise ase involving grayling heart without angina pectoris, unspecified vessel or lesion type (Primary Dx); Subclinical hypothyroidism; Anxiety with depression; Encounter for immunization; Tachycardia-bradycardia (HCC); Essential hypertension; ELKIN (obstructive sleep apnea); Vitamin B12 deficiency; GERD without esophagitis; Zenker diverticulum; Type 2 diabetes mellitus with complication, without long-term current use of insulin (HCC); Bilateral carotid artery stenosis; Hyponatremia; Hypomagnesemia; Chronic thoracic back pain, unspecified back pain laterality; Primary osteoarthritis of both knees; Spinal stenosis of lumbar region, unspecified whether neurogenic claudication present; Depression, unspecified depression type; Anemia, unspecified type Start: 11-05-2022 Telephone encounter Shaquille Benjamin MD Work Phone: [facility] [place] Comment on above: Results Start: 08-18-2022 Refill Shaquille Benjamin MD Work Phone: [facility] [place] Comment on above: Refill Request Start: 07-31-2022 Telephone encounter Shaquille Benjamin MD Work Phone: [facility] [place] Comment on above: Forms (Lori Moran ) Start: 07-30-2022 End: 07-30-2022 Patient encounter procedure Shaquille Benjamin MD Work Phone: [facility] Comment on above: Hyponatremia (Primar y Dx); Hypomagnesemia; Acute midline thoracic back pain; Osteoarthritis of both knees, unspecified osteoarthritis type; Spinal stenosis of lumbar region, unspecified whether neurogenic claudication present; Vitamin B12 deficiency; GERD without esophagitis; Zenker diverticulum; Coronary artery disease involving grayling heart without angina pectoris, unspecified vessel or lesion type; Essential hypertension; Hyperlipidemia, mixed; 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); Depression, unspecified depression type; Type 2 diabetes mellitus with complication, without long-term current use of insulin (HCC); Subclinical hypothyroidism Start: 07-20-2022 ambulatory Shaquille eBnjamin MD Work Phone: [facility] [place] Comment on above: Lab work Upcoming vi sit Start: 06-06-2022 End: 06-06-2022 Patient encounter procedure Shaquille Benjamin MD Work Phone: [facility] [place] Comment on above: Essential hypertensi on (Primary Dx); Coronary artery disease involving grayling heart without angina pectoris, unspecified vessel or lesion type; 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); ELKIN (obstructive sleep apnea); Vitamin B12 deficiency; GERD without esophagitis; Depression, unspecified depression type; Hyponatremia; Hypomagnesemia; Zenker diverticulum; Hyperlipidemia, mixed; Bilateral carotid artery stenosis; Type 2 diabetes mellitus with complication, without long-term current use of insulin (HCC); Subclinical hypothyroidism; Major depressive disorder, recurrent, in partial remission (HCC) Start: 05-14-2022 Refill Shaquille Benjamin MD Work Phone: [facility] [place] Comment on above: Refill Request Start: 04-03-2022 Refill Shaquille Benjamin MD Work Phone: [facility] [place] Comment on above: Refill Request (Need s today) Start: 03-07-2022 End: 03-07-2022 Patient encounter procedure Shaquille Benjamin MD Work Phone: [facility] [place] Comment on above: Type 2 diabetes ashwini itus with complication, without long-term current use of insulin (HCC) (Primary Dx); Encounter for immunization; 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); Hyperlipidemia, mixed; Coronary artery disease involving grayling heart without angina pectoris, unspecified vessel or lesion type; Chronic thoracic back pain, unspecified back pain laterality; ELKIN (obstructive sleep apnea); Vitamin B12 deficiency; Zenker diverticulum; Hyponatremia; Hypomagnesemia; Subclinical hypothyroidism; Bilateral carotid artery stenosis; Chronic anemia Start: 02-18-2022 Refill Shaquille Benjamin MD Work Phone: [facility] [place] Comment on above: Refill Request Start: 01-11-2022 Refill Shaquille Benjamin MD Work Phone: [facility] [place] Comment on above: Refill Request Start: 12-06-2021 End: 12-06-2021 ambulatory Larissa Ellis PT Work Phone: [facility] Comment on above: Primary osteoarthrit is of both knees (Primary Dx); Chronic thoracic back pain, unspecified back pain laterality; Generalized weakness Start: 11-08-2021 End: 11-08-2021 Patient encounter procedure Shaquille Benjamin MD Work Phone: [facility] Comment on above: Coronary artery dise ase involving grayling heart without angina pectoris, unspecified vessel or lesion type (Primary Dx); Acute midline thoracic back pain; Osteoarthritis of both knees, unspecified osteoarthritis type; Anxiety with depression; Subclinical hypothyroidism; Chronic thoracic back pain, unspecified back pain laterality; Essential hypertension; Dysphagia, unspecified type; Vitamin B12 deficiency; GERD without esophagitis; Hypomagnesemia; Hyponatremia; Type 2 diabetes mellitus with complication, without long-term current use of insulin (HCC); Primary osteoarthritis of both knees; Cervical stenosis of spine; Generalized weakness Start: 11-05-2021 Refill Shaquille Benjamin MD Work Phone: [facility] [place] Comment on above: Refill Request Start: 11-03-2021 End: 11-03-[address] Shaquille Benjamin Work Phone: [facility] Work Phone: Start: 11-03-2021 End: 11-03-[address] Shaquille Benjamin Work Phone: [facility] Start: 11-01-2021 Telephone encounter Shaquille Benjamin MD Work Phone: [facility] [place] Comment on above: Results Start: 11-01-2021 Non-patient / Non-visit Dr. Jessica Benjamin Work Phone: [facility] Start: 11-01-2021 End: 11-01-2021 Admission to same day surgery center Dr. Shaquille Benjamin Work Phone: [facility] Start: 10-26-2021 Get Medical Advice Shaquille [facility] MD [facility] Comment on above: Lab orders Start: 10-25-2021 End: 10-25-[address] Shaquille Benjamin Work Phone: [facility] Start: 09-22-2021 ambulatory Shaquille Benjamin MD Work Phone: [facility] [place] Comment on above: esophagogram Start: 09-22-2021 E-mail encounter fro m caregiver Shaquille Benjamin MD Work Phone: [facility] Start: 09-22-2021 End: 09-22-2021 [facility] Start: 09-15-2021 ambulatory Shaquille Benjamin MD Work Phone: [facility] [place] Comment on above: Food caught Start: 08-24-2021 Refill [facility] MD [facility] Comment on above: Refill Request Start: 08-09-2021 End: 08-09-2021 Patient encounter procedure Shaquille Benjamin MD Work Phone: [facility] [place] Comment on above: Vitamin B12 deficien cy (Primary Dx); Acute midline thoracic back pain; Osteoarthritis of both knees, unspecified osteoarthritis type; Type 2 diabetes mellitus with complication, without long-term current use of insulin (HCC); Essential hypertension; Bilateral carotid artery stenosis; Subclinical hypothyroidism; Coronary artery disease involving grayling heart without angina pectoris, unspecified vessel or lesion type; Zenker diverticulum; GERD without esophagitis; Depression, unspecified depression type; Hyperlipidemia, mixed; Anemia, unspecified type Start: 08-03-2021 Get Medical Advice Shaquille Benjamin MD Work Phone: [facility] Comment on above: Lab orders Start: 07-26-2021 Refill Shaquille Benjamin MD Work Phone: [facility] Comment on above: Refill Request Start: 06-22-2021 Refill Shaquille Benjamin MD Work Phone: [facility] Comment on above: Refill Request Procedures Date Procedure Procedure Detail Performing Clinician Start: 05-21-2023 Cynny COVID-19 VACCINE ( SEASON) AGE 12+ YR Shaquille Benjamin MD Work Phone: Start: 11-07-2022 INFLUENZA VACCINE, PRSV FREE, AGE 65+ YR, HIGH DOSE, QUADRIVALENT (FLUZONE HIGH-DOSE) Shaquille Benjamin MD Work Phone: Start: 11-07-2022 History of coronary artery bypass grafting History of coronary artery bypass surgery Shaquille Benjamin MD Work Phone: Start: 11-03-2021 CT of soft tissues of neck with contrast Dr. Shaquille Benjamin Work Phone: Start: 09-22-2021 Radiography of esophagus Start: 02-25-2015 History of coronary artery bypass grafting History of coronary artery bypass surgery H/O: surgery History of excis ion of Zenker's diverticulum Dr. Shaquille Benjamin Work Phone: History of coronary artery bypass grafting History of coronary artery bypass surgery Shaquille Benjamin MD Work Phone: Plan of Treatment Date Care Activity Detail Author Start: 11-04-2028 Urine microalbumin profile [facility] Start: 10-28-2024 Diabetic foot examination Diabetic Foot Exam [facility] Start: 09-24-2024 Hepatitis B screening Urine Al bumin:Creatinine Ratio [facility] Start: 09-19-2024 Anxiety Screening Anxiety Screening [facility] Start: 09-19-2024 Covid-19 Vaccine ( season) Covid-19 Vaccine () [facility] Comment on above: Postponed from 09/19 (Declined at this time) Start: 05-20-2024 Hepatitis B surface antibody level LDL Cholesterol [facility] Start: 05-20-2024 RSV Vaccine (1 - 1-d ose 60+ series) RSV Vaccine (1 - 1-dose 60+ series) [facility] Comment on above: Postponed from 02/09 (Declined at this time) Start: 05-20-2024 RSV Vaccine (1 - 1-d ose 75+ series) RSV Vaccine (1 - 1-dose 75+ series) [facility] Comment on above: Postponed from 02/09 (Declined at this time) Start: 05-20-2024 Shingrix Vaccine (2 of 3) Shingrix Vaccine (2 of 3) [facility] Comment on above: Postponed from 02/03 (Declined at this time) Start: 05-15-2024 Glaucoma screening Dilated Retinal E xam [facility] Start: 05-01-2024 End: 05-01-2024 Patient encounter procedure 05/01/2024 3:00 PM EST Office Visit [facility] [address] [place] [address] Shaquille Benjamin MD [address] [place] [address] 3 mo follow up [facility] Comment on above: 3 mo follow up Start: 04-28-2024 End: 07-28-2024 CBC W Auto Differential panel - Blood COMPLETE BLOOD COUNT AND DIFFERENTIAL Lab Routine Essential hypertension Expected: 04/28/2024, Expires: 07/28/2024 [facility] Work Phone: Comment on above: Expected: 04/28/2024 , Expires: 07/28/2024 Start: 04-28-2024 End: 07-28-2024 Cobalamin (Vitamin B12) [Mass/volume] in Serum or Plasma VITAMIN B12 Lab Routine Vitamin B12 deficiency Expected: 04/28/2024, Expires: 07/28/2024 [facility] Comment on above: Expected: 04/28/2024 , Expires: 07/28/2024 Start: 04-28-2024 End: 07-28-2024 Comprehensive metabolic 2000 panel - Serum or Plasma COMPREHENSIVE METABOLIC PANEL Lab Routine Essential hypertension Expected: 04/28/2024, Expires: 07/28/2024 [facility] Comment on above: Expected: 04/28/2024 , Expires: 07/28/2024 Start: 04-28-2024 End: 07-28-2024 Hemoglobin A1c in Blood HEMOGLOBIN A1C Lab Routine Type 2 diabetes mellitus with complication, without long-term current use of insulin (HCC) Expected: 04/28/2024, Expires: 07/28/2024 [facility] Comment on above: Expected: 04/28/2024 , Expires: 07/28/2024 Start: 04-28-2024 End: 07-28-2024 Lipid 1996 panel - Serum or Plasma LIPID PANEL BASIC Lab Routine Essential hypertension Expected: 04/28/2024, Expires: 07/28/2024 [facility] Comment on above: Expected: 04/28/2024 , Expires: 07/28/2024 Start: 04-28-2024 End: 07-28-2024 Magnesium [Mass/volume] in Serum or Plasma MAGNESIUM Lab Routine Essential hypertension Expected: 04/28/2024, Expires: 07/28/2024 [facility] Comment on above: Expected: 04/28/2024 , Expires: 07/28/2024 Start: 04-28-2024 End: 07-28-2024 Thyrotropin [Units/volume] in Serum or Plasma THYROID STIMULATING HORMONE Lab Routine Subclinical hypothyroidism Expected: 04/28/2024, Expires: 07/28/2024 [facility] Comment on above: Expected: 04/28/2024 , Expires: 07/28/2024 Start: 03-27-2024 Hemoglobin A1c measurement HbA1C [facility] Start: 02-26-2024 Advance Directive Discussion Advance Directive Discussion [facility] Start: 02-07-2024 End: 02-07-2024 Patient encounter procedure 02/07/2024 2:00 PM EST Office Visit Podiatry [address] [place], [place] [id number] Jocelyn Brothers [address] [place], [place] [id number] 3 month follow up nail care Podiatry Comment on above: 3 month follow up na il care Start: 01-29-2024 End: 01-29-2024 Patient encounter procedure 01/29/2024 1:40 PM EST Office Visit [facility] [place] [address] [place] [address] Shaquille Benjamin MD [address] [place] [address] 4 month follow up [facility] Comment on above: 4 month follow up Start: 12-24-2023 End: 12-24-2023 [facility] 12/24/2023 11:00 AM EDT [facility] [address] [place] [address] Shaquille Benjamin MD [address] [place] [address] discuss order for physical therapy [facility] Comment on above: discuss order for ph ysical therapy Start: 11-21-2023 Hemoglobin A1c measurement HbA1C [facility] Start: 10-29-2023 End: 10-29-2023 Patient encounter procedure 10/29/2023 2:30 PM EDT Office Visit Podiatry [address] [place], [place] [id number] Jocelyn Brothers [address] [place] [id number] Type 2 diabetes mellitus with complication, without long-term current use of ins... Podiatry Comment on above: Type 2 diabetes ashwini itus with complication, without long-term current use of ins... Start: 10-27-2023 Covid-19 Vaccine ( season) Covid-19 Vaccine () [facility] Start: 10-27-2023 Covid-19 Vaccine () Covid-19 Vaccine () [facility] Start: 10-27-2023 Influenza vaccination Influenza Vacc ine (#1) [facility] Start: 09-26-2023 End: 12-26-2023 Magnesium [Mass/volume] in Serum or Plasma MAGNESIUM Lab Routine Hypomagnesemia Expected: 09/26/2023, Expires: 12/26/2023 [facility] Work Phone: Comment on above: Expected: 09/26/2023 , Expires: 12/26/2023 Start: 09-20-2023 End: 09-20-2023 Patient encounter procedure 09/20/2023 3:40 PM EDT Office Visit Family [facility] [address] [place] [address] Shaquille Benjamin MD [address] [place], [place] [id number] 4 month follow up [facility] Comment on above: 4 month follow up Start: 09-20-2023 End: 12-20-2023 Basic metabolic 2000 panel - Serum or Plasma BASIC METABOLIC PANEL Lab Routine Type 2 diabetes mellitus with complication, without long-term current use of insulin (HCC) Hyponatremia Expected: 09/20/2023, Expires: 12/20/2023 [facility] Comment on above: Expected: 09/20/2023 , Expires: 12/20/2023 Start: 09-20-2023 End: 12-20-2023 CBC W Auto Differential panel - Blood COMPLETE BLOOD COUNT AND DIFFERENTIAL Lab Routine Anemia, unspecified type Expected: 09/20/2023, Expires: 12/20/2023 [facility] Work Phone: Comment on above: Expected: 09/20/2023 , Expires: 12/20/2023 Start: 09-20-2023 End: 12-20-2023 Cobalamin (Vitamin B12) [Mass/volume] in Serum or Plasma VITAMIN B12 Lab Routine Anemia, unspecified type Expected: 09/20/2023, Expires: 12/20/2023 [facility] Comment on above: Expected: 09/20/2023 , Expires: 12/20/2023 Start: 09-20-2023 Covid-19 Vaccine () Covid-19 Vaccine () [facility] Start: 09-20-2023 End: 12-20-2023 Ferritin [Mass/volume] in Serum or Plasma FERRITIN Lab Routine Anemia, unspecified type Expected: 09/20/2023, Expires: 12/20/2023 [facility] Comment on above: Expected: 09/20/2023 , Expires: 12/20/2023 Start: 09-20-2023 End: 12-20-2023 Hemoglobin A1c in Blood HEMOGLOBIN A1C Lab Routine Type 2 diabetes mellitus with complication, without long-term current use of insulin (HCC) Expected: 09/20/2023, Expires: 12/20/2023 [facility] Comment on above: Expected: 09/20/2023 , Expires: 12/20/2023 Start: 09-20-2023 End: 12-20-2023 Iron and Iron binding capacity panel - Serum or Plasma IRON AND TIBC Lab Routine Anemia, unspecified type Expected: 09/20/2023, Expires: 12/20/2023 [facility] Comment on above: Expected: 09/20/2023 , Expires: 12/20/2023 Start: 09-20-2023 End: 12-20-2023 Magnesium [Mass/volume] in Serum or Plasma MAGNESIUM Lab Routine Hypomagnesemia Expected: 09/20/2023, Expires: 12/20/2023 [facility] Comment on above: Expected: 09/20/2023 , Expires: 12/20/2023 Start: 09-20-2023 End: 12-20-2023 Microalbumin/Creatinine [Mass Ratio] in Urine ALBUMIN/CREATININE RATIO, URINE Lab Routine Type 2 diabetes mellitus with complication, without long-term current use of insulin (HCC) Expected: 09/20/2023, Expires: 12/20/2023 [facility] Comment on above: Expected: 09/20/2023 , Expires: 12/20/2023 Start: 09-20-2023 End: 12-20-2023 TOXICOLOGY SCREEN, ROUTINE URINE TOXICOLOGY SCREEN, ROUTINE URINE Lab Routine Medication monitoring encounter Expected: 09/20/2023, Expires: 12/20/2023 [facility] Comment on above: Expected: 09/20/2023 , Expires: 12/20/2023 Start: 07-31-2023 3 comp foot exam completed DIABETIC FOOT EXAM [facility] Start: 07-31-2023 Diabetic foot examination Diabetic Foot Exam [facility] Start: 07-26-2023 Hepatitis B screening URINE AL BUMIN:CREATININE RATIO [facility] Start: 07-26-2023 Hepatitis B surface antibody level LDL CHOLESTEROL [facility] Start: 06-16-2023 Hepatitis C antibody , confirmatory test DILATED RETINAL EXAM [facility] Start: 01-24-2023 Hemoglobin A1c/Hemoglobin.total in Blood HBA1C [facility] Start: 11-07-2022 End: 01-07-2023 CBC W Auto Differential panel - Blood CBC + DIFF Lab Routine GERD without esophagitis Anemia, unspecified type Expected: 11/07/2022, Expires: 01/07/2023 [facility] Work Phone: Comment on above: Expected: 11/07/2022 , Expires: 01/07/2023 Start: 11-07-2022 End: 01-07-2023 Cobalamin (Vitamin B12) [Mass/volume] in Serum or Plasma VITAMIN B12 BLOOD Lab Routine Vitamin B12 deficiency Expected: 11/07/2022, Expires: 01/07/2023 [facility] Work Phone: Comment on above: Expected: 11/07/2022 , Expires: 01/07/2023 Start: 11-07-2022 End: 07-08-2023 Hemoglobin A1c in Blood HGB A1C Lab Routine Type 2 diabetes mellitus with complication, without long-term current use of insulin (HCC) Expected: 11/07/2022, Expires: 07/08/2023 [facility] Work Phone: Comment on above: Expected: 11/07/2022 , Expires: 07/08/2023 Start: 11-07-2022 End: 01-07-2023 Iron and Iron binding capacity panel - Serum or Plasma IRON + TIBC Lab Routine Anemia, unspecified type Expected: 11/07/2022, Expires: 01/07/2023 [facility] Work Phone: Comment on above: Expected: 11/07/2022 , Expires: 01/07/2023 Start: 11-05-2022 End: 01-05-2023 Basic metabolic 2000 panel - Serum or Plasma BASIC METABOLIC PNL Lab Routine Hyponatremia Expected: 11/05/2022, Expires: 01/05/2023 [facility] Work Phone: Comment on above: Expected: 11/05/2022 , Expires: 01/05/2023 Start: 10-30-2022 End: 12-30-2022 Basic metabolic 2000 panel - Serum or Plasma BASIC METABOLIC PNL Lab Routine Hypomagnesemia Expected: 10/30/2022, Expires: 12/30/2022 [facility] Work Phone: Comment on above: Expected: 10/30/2022 , Expires: 12/30/2022 Start: 10-30-2022 End: 12-30-2022 Magnesium [Mass/volume] in Serum or Plasma MAGNESIUM BLD Lab Routine Hyponatremia Expected: 10/30/2022, Expires: 12/30/2022 [facility] Work Phone: Comment on above: Expected: 10/30/2022 , Expires: 12/30/2022 Start: 10-26-2022 Influenza vaccination INFLUENZA (#1) [facility] Start: 09-02-2022 Hemoglobin A1c/Hemoglobin.total in Blood HBA1C [facility] Start: 08-07-2022 Hepatitis B screening URINE AL BUMIN:CREATININE RATIO [facility] Start: 08-07-2022 Hepatitis B surface antibody level LDL CHOLESTEROL [facility] Start: 07-24-2022 End: 09-23-2022 ALBUMIN/CREAT RATIO RND UR ALBUMIN/CREAT RATIO RND UR Lab Routine Type 2 diabetes mellitus with complication, without long-term current use of insulin (HCC) Expected: 07/24/2022, Expires: 09/23/2022 [facility] Health Work Phone: Comment on above: Expected: 07/24/2022 , Expires: 09/23/2022 Start: 07-24-2022 End: 09-23-2022 TOX SCREEN ROUT UR TOX SCREEN ROUT UR Lab Routine Encounter for medication monitoring Expected: 07/24/2022, Expires: 09/23/2022 [facility] Work Phone: Comment on above: Expected: 07/24/2022 , Expires: 09/23/2022 Start: 07-18-2022 End: 09-17-2022 Comprehensive metabolic 2000 panel - Serum or Plasma COMP METABOLIC PANEL Lab Routine Hyponatremia Expected: 07/18/2022, Expires: 09/17/2022 [facility] Work Phone: Comment on above: Expected: 07/18/2022 , Expires: 09/17/2022 Start: 07-18-2022 End: 09-17-2022 Hemoglobin A1c in Blood HGB A1C Lab Routine Type 2 diabetes mellitus with complication, without long-term current use of insulin (HCC) Expected: 07/18/2022, Expires: 09/17/2022 [facility] Work Phone: Comment on above: Expected: 07/18/2022 , Expires: 09/17/2022 Start: 07-18-2022 End: 09-17-2022 Lipid 1996 panel - Serum or Plasma LIPID PANEL BASIC Lab Routine Hyperlipidemia, mixed Expected: 07/18/2022, Expires: 09/17/2022 [facility] Work Phone: Comment on above: Expected: 07/18/2022 , Expires: 09/17/2022 Start: 07-18-2022 End: 09-17-2022 Magnesium [Mass/volume] in Serum or Plasma MAGNESIUM BLD Lab Routine Hypomagnesemia Expected: 07/18/2022, Expires: 09/17/2022 [facility] Work Phone: Comment on above: Expected: 07/18/2022 , Expires: 09/17/2022 Start: 07-18-2022 End: 09-17-2022 Thyrotropin [Units/volume] in Serum or Plasma TSH BLD Lab Routine Subclinical hypothyroidism Expected: 07/18/2022, Expires: 09/17/2022 [facility] Work Phone: Comment on above: Expected: 07/18/2022 , Expires: 09/17/2022 Start: 06-05-2022 End: 08-05-2022 Basic metabolic 2000 panel - Serum or Plasma BASIC METABOLIC PNL Lab Routine Hyponatremia Expected: 06/05/2022, Expires: 08/05/2022 [facility] Work Phone: Comment on above: Expected: 06/05/2022 , Expires: 08/05/2022 Start: 06-05-2022 End: 08-05-2022 CBC W Auto Differential panel - Blood CBC + DIFF Lab Routine Chronic anemia Expected: 06/05/2022, Expires: 08/05/2022 [facility] Work Phone: Comment on above: Expected: 06/05/2022 , Expires: 08/05/2022 Start: 06-05-2022 End: 08-05-2022 Cobalamin (Vitamin B12) [Mass/volume] in Serum or Plasma VITAMIN B12 BLOOD Lab Routine Vitamin B12 deficiency Expected: 06/05/2022, Expires: 08/05/2022 [facility] Work Phone: Comment on above: Expected: 06/05/2022 , Expires: 08/05/2022 Start: 06-05-2022 End: 08-05-2022 Iron and Iron binding capacity panel - Serum or Plasma IRON + TIBC Lab Routine Chronic anemia Expected: 06/05/2022, Expires: 08/05/2022 [facility] Work Phone: Comment on above: Expected: 06/05/2022 , Expires: 08/05/2022 Start: 06-05-2022 End: 08-05-2022 Magnesium [Mass/volume] in Serum or Plasma MAGNESIUM BLD Lab Routine Hypomagnesemia Expected: 06/05/2022, Expires: 08/05/2022 [facility] Work Phone: Comment on above: Expected: 06/05/2022 , Expires: 08/05/2022 Start: 05-24-2022 Hepatitis B screening URINE AL BUMIN:CREATININE RATIO [facility] Start: 05-24-2022 Hepatitis B surface antibody level LDL CHOLESTEROL [facility] Start: 05-11-2022 3 comp foot exam completed DIABETIC FOOT EXAM [facility] Start: 04-27-2022 COVID-19 VACCINE (6 - Moderna series) COVID-19 VACCINE (6 - Moderna series) [facility] Start: 02-25-2022 ADVANCE DIRECTIVE DISCUSSION ADVANCE DIRECTIVE DISCUSSION [facility] Start: 02-07-2022 End: 04-09-2022 CBC W Auto Differential panel - Blood CBC + DIFF Lab Routine Type 2 diabetes mellitus with complication, without long-term current use of insulin (HCC) Expected: 02/07/2022, Expires: 04/09/2022 [facility] Work Phone: Comment on above: Expected: 02/07/2022 , Expires: 04/09/2022 Start: 02-07-2022 End: 04-09-2022 Comprehensive metabolic 2000 panel - Serum or Plasma COMP METABOLIC PANEL Lab Routine Hyponatremia Expected: 02/07/2022, Expires: 04/09/2022 [facility] Work Phone: Comment on above: Expected: 02/07/2022 , Expires: 04/09/2022 Start: 02-07-2022 End: 04-09-2022 Hemoglobin A1c in Blood HGB A1C Lab Routine Type 2 diabetes mellitus with complication, without long-term current use of insulin (HCC) Expected: 02/07/2022, Expires: 04/09/2022 [facility] Work Phone: Comment on above: Expected: 02/07/2022 , Expires: 04/09/2022 Start: 02-07-2022 End: 04-09-2022 Magnesium [Mass/volume] in Serum or Plasma MAGNESIUM BLD Lab Routine Hypomagnesemia Expected: 02/07/2022, Expires: 04/09/2022 [facility] Work Phone: Comment on above: Expected: 02/07/2022 , Expires: 04/09/2022 Start: 02-07-2022 End: 04-09-2022 Thyrotropin [Units/volume] in Serum or Plasma TSH BLD Lab Routine Subclinical hypothyroidism Expected: 02/07/2022, Expires: 04/09/2022 [facility] Work Phone: Comment on above: Expected: 02/07/2022 , Expires: 04/09/2022 Start: 02-06-2022 Hemoglobin A1c/Hemoglobin.total in Blood HBA1C [facility] Start: 11-24-2021 Hemoglobin A1c/Hemoglobin.total in Blood HBA1C [facility] Start: 11-09-2021 End: 01-09-2022 Basic metabolic 2000 panel - Serum or Plasma BASIC METABOLIC PNL Lab Routine Vitamin B12 deficiency Expected: 11/09/2021, Expires: 01/09/2022 [facility] Work Phone: Comment on above: Expected: 11/09/2021 , Expires: 01/09/2022 Start: 11-09-2021 End: 01-09-2022 CBC W Auto Differential panel - Blood CBC + DIFF Lab Routine Vitamin B12 deficiency Expected: 11/09/2021, Expires: 01/09/2022 [facility] Work Phone: Comment on above: Expected: 11/09/2021 , Expires: 01/09/2022 Start: 11-09-2021 End: 01-09-2022 Magnesium [Mass/volume] in Serum or Plasma MAGNESIUM BLD Lab Routine Vitamin B12 deficiency Expected: 11/09/2021, Expires: 01/09/2022 [facility] Work Phone: Comment on above: Expected: 11/09/2021 , Expires: 01/09/2022 Start: 11-01-2021 Egd balloon dilation esophagus <30 mm diam ESOPH EGD DILATION <30 MM [facility] Work Phone: Start: 11-01-2021 Egd transoral biopsy single/multiple EGD BIOPSY SINGLE/MULTIPLE [facility] Work Phone: Start: 11-01-2021 Patient discharge [facility] Work Phone: Start: 10-26-2021 End: 12-26-2021 Basic metabolic 2000 panel - Serum or Plasma BASIC METABOLIC PNL Lab Routine Vitamin B12 deficiency Anemia, unspecified type Hypomagnesemia Hyponatremia Expected: 10/26/2021, Expires: 12/26/2021 [facility] Work Phone: Comment on above: Expected: 10/26/2021 , Expires: 12/26/2021 Start: 10-26-2021 End: 12-26-2021 CBC W Auto Differential panel - Blood CBC + DIFF Lab Routine Vitamin B12 deficiency Anemia, unspecified type Hypomagnesemia Hyponatremia Expected: 10/26/2021, Expires: 12/26/2021 [facility] Work Phone: Comment on above: Expected: 10/26/2021 , Expires: 12/26/2021 Start: 10-26-2021 End: 12-26-2021 Ferritin [Mass/volume] in Serum or Plasma FERRITIN BLD Lab Routine Vitamin B12 deficiency Anemia, unspecified type Hypomagnesemia Hyponatremia Expected: 10/26/2021, Expires: 12/26/2021 [facility] Work Phone: Comment on above: Expected: 10/26/2021 , Expires: 12/26/2021 Start: 10-26-2021 End: 12-26-2021 Folate [Mass/volume] in Serum or Plasma FOLATE SERUM Lab Routine Vitamin B12 deficiency Anemia, unspecified type Hypomagnesemia Hyponatremia Expected: 10/26/2021, Expires: 12/26/2021 [facility] Work Phone: Comment on above: Expected: 10/26/2021 , Expires: 12/26/2021 Start: 10-26-2021 Influenza vaccination INFLUENZA (#1) [facility] Start: 10-26-2021 End: 12-26-2021 Iron and Iron binding capacity panel - Serum or Plasma IRON + TIBC Lab Routine Vitamin B12 deficiency Anemia, unspecified type Hypomagnesemia Hyponatremia Expected: 10/26/2021, Expires: 12/26/2021 [facility] Work Phone: Comment on above: Expected: 10/26/2021 , Expires: 12/26/2021 Start: 10-26-2021 End: 12-26-2021 Magnesium [Mass/volume] in Serum or Plasma MAGNESIUM BLD Lab Routine Vitamin B12 deficiency Anemia, unspecified type Hypomagnesemia Hyponatremia Expected: 10/26/2021, Expires: 12/26/2021 [facility] Work Phone: Comment on above: Expected: 10/26/2021 , Expires: 12/26/2021 Start: 08-09-2021 End: 10-09-2021 Ferritin [Mass/volume] in Serum or Plasma FERRITIN BLD Lab Routine Anemia, unspecified type Expected: 08/09/2021, Expires: 10/09/2021 [facility] Work Phone: Comment on above: Expected: 08/09/2021 , Expires: 10/09/2021 Start: 08-09-2021 End: 10-09-2021 Folate [Mass/volume] in Serum or Plasma FOLATE SERUM Lab Routine Anemia, unspecified type Expected: 08/09/2021, Expires: 10/09/2021 [facility] Work Phone: Comment on above: Expected: 08/09/2021 , Expires: 10/09/2021 Start: 08-09-2021 End: 10-09-2021 Iron and Iron binding capacity panel - Serum or Plasma IRON + TIBC Lab Routine Anemia, unspecified type Expected: 08/09/2021, Expires: 10/09/2021 [facility] Work Phone: Comment on above: Expected: 08/09/2021 , Expires: 10/09/2021 Start: 08-04-2021 End: 10-04-2021 ALBUMIN/CREAT RATIO RND UR ALBUMIN/CREAT RATIO RND UR Lab Routine Type 2 diabetes mellitus with complication, without long-term current use of insulin (HCC) Expected: 08/04/2021, Expires: 10/04/2021 [facility] Work Phone: Comment on above: Expected: 08/04/2021 , Expires: 10/04/2021 Start: 08-04-2021 End: 08-04-2022 CBC W Auto Differential panel - Blood CBC + DIFF Lab Routine Type 2 diabetes mellitus with complication, without long-term current use of insulin (HCC) Expected: 08/04/2021, Expires: 08/04/2022 [facility] Work Phone: Comment on above: Expected: 08/04/2021 , Expires: 08/04/2022 Start: 08-04-2021 End: 08-04-2022 Comprehensive metabolic 2000 panel - Serum or Plasma COMP METABOLIC PANEL Lab Routine Type 2 diabetes mellitus with complication, without long-term current use of insulin (HCC) Expected: 08/04/2021, Expires: 08/04/2022 [facility] Work Phone: Comment on above: Expected: 08/04/2021 , Expires: 08/04/2022 Start: 08-04-2021 End: 10-04-2021 Hemoglobin A1c in Blood HGB A1C Lab Routine Type 2 diabetes mellitus with complication, without long-term current use of insulin (HCC) Expected: 08/04/2021, Expires: 10/04/2021 [facility] Work Phone: Comment on above: Expected: 08/04/2021 , Expires: 10/04/2021 Start: 08-04-2021 End: 08-04-2022 Lipid 1996 panel - Serum or Plasma LIPID PANEL BASIC Lab Routine Hyperlipidemia, mixed Expected: 08/04/2021, Expires: 08/04/2022 [facility] Work Phone: Comment on above: Expected: 08/04/2021 , Expires: 08/04/2022 Start: 08-04-2021 End: 10-04-2021 Magnesium [Mass/volume] in Serum or Plasma MAGNESIUM BLD Lab Routine Hypomagnesemia Expected: 08/04/2021, Expires: 10/04/2021 [facility] Work Phone: Comment on above: Expected: 08/04/2021 , Expires: 10/04/2021 Start: 08-04-2021 End: 10-04-2021 TOX SCREEN ROUT UR TOX SCREEN ROUT UR Lab Routine Medication monitoring encounter Expected: 08/04/2021, Expires: 10/04/2021 [facility] Work Phone: Comment on above: Expected: 08/04/2021 , Expires: 10/04/2021 Start: 08-03-2021 COVID-19 VACCINE (5 - Booster for Moderna series) COVID-19 VACCINE (5 - Booster for Moderna series) [facility] Start: 04-23-2021 COVID-19 VACCINE (4 - Booster for Moderna series) COVID-19 VACCINE (4 - Booster for Moderna series) [facility] Start: 02-25-2021 ADVANCE DIRECTIVE DISCUSSION ADVANCE DIRECTIVE DISCUSSION [facility] Start: 10-11-2020 Hepatitis C antibody , confirmatory test DILATED RETINAL EXAM [facility] Start: 02-03-2014 SHINGRIX VACCINE (2 of 3) SHINGRIX VACCINE (2 of 3) [facility] Start: 2010 RSV Vaccine (1 - 1-d ose 75+ series) RSV Vaccine (1 - 1-dose 75+ series) [facility] Start: 02-25-2007 PNEUMOCOCCAL: 65+ (2 - PCV) PNEUMOCOCCAL: 65+ (2 - PCV) [facility] Patient referral [facility] Work Phone: PT PLAN OF CARE CERTIFICATION PT PLAN OF CARE CERTIFICATION Procedures Routine Primary osteoarthritis of both knees Chronic thoracic back pain, unspecified back pain laterality Generalized weakness Ordered: 12/06/2021 [facility] Work Phone: Comment on above: Ordered: 12/06/2021 End: 10-15-2022 Radiologic exam esophagus single contrast study XR ESOPHAGRAM Radiology Routine Dysphagia, unspecified type 1 Occurrences starting 09/15/2021 until 10/15/2022 [facility] Work Phone: Comment on above: 1 Occurrences starti ng 09/15/2021 until 10/15/2022 End: 06-07-2023 US CAROTID ARTERIES JOSSELINE VAS LAB US CAROTID ARTERIES JOSSELINE VAS LAB Vascular Lab Routine Bilateral carotid artery stenosis 1 Occurrences starting 06/06/2022 until 06/07/2023 [facility] Work Phone: Comment on above: 1 Occurrences starti ng 06/06/2022 until 06/07/2023 [facility] Immunizations Immunization Date Immunization Notes Care Provider Fa [facility] 12-23-2023 influenza virus vacc ine, unspecified formulation Shaquille Benjamin MD Work Phone: [facility] 05-21-2023 COVID-19 vaccine, ag e 12+ yr, season ([employer]) Shaquille Benjamin MD Work Phone: [facility] 11-07-2022 influenza (HD-IIV4) vaccine, age 65+ yr, high dose, quadrivalent, PF (FLUZONE HIGH-DOSE) Shaquille Benjamin MD Work Phone: [facility] 11-07-2022 influenza virus vacc ine, unspecified formulation Shaquille Benjamin MD Work Phone: [facility] 03-07-2022 pneumococcal Conjuga te, unspecified formulation Shaquille Benjamin MD Work Phone: [facility] Work Phone: 03-07-2022 pneumococcal (PCV20) vaccine, 20 valent (PREVNAR 20) Shaquille Benjamin MD Work Phone: [facility] 12-15-2021 influenza, high dose seasonal, preservative-free Shaquille Benjamin MD Work Phone: [facility] 06-08-2021 COVID-19 original vaccine, full dose, monovalent (MODERNA) Shaquille Benjamin MD Work Phone: [facility] 12-21-2020 COVID-19 original vaccine, full dose, monovalent (MODERNA) Shaquille Benjamin MD Work Phone: [facility] 11-03-2020 influenza, high-dose , quadrivalent vaccine (FLUZONE HIGH DOSE QUADRIVALENT) Shaquille Benjamin MD Work Phone: [facility] 04-15-2020 COVID-19 vaccine, fu ll dose (MODERNA) Shaquille Benjamin MD Work Phone: [facility] 03-18-2020 COVID-19 vaccine, fu ll dose (MODERNA) Shaquille Benjamin MD Work Phone: [facility] 11-11-2019 influenza, high-dose , quadrivalent vaccine (FLUZONE HIGH DOSE QUADRIVALENT) Shaquille Benjamin MD Work Phone: [facility] 12-15-2018 influenza, high dose seasonal, preservative-free Shaquille Benjamin MD Work Phone: [facility] 11-04-2018 tetanus toxoid, redu carl diphtheria toxoid, and acellular pertussis vaccine, adsorbed Shaquille Benjamin MD Work Phone: [facility] 12-04-2017 influenza, high dose seasonal, preservative-free Shaquille Benjamin MD Work Phone: [facility] 12-09-2013 zoster vaccine, live Shaquille Benjamin MD Work Phone: [facility] 02-25-2006 pneumococcal polysaccharide vaccine, 23 valent Shaquille Benjamin MD Work Phone: [facility] Payers Date Payer Category Payer Self-pay [id number] 2019 [facility] DICARE SUPPLEMENT [id number] 2019 Unknown ANTHEM ANTHEM ME DICARE SUPPLEMENT [id number] 2019-Present [phone] [address] [place] [address] Indemnity [id number] 2019 Unknown ANTHEM ANTHEM ME DICARE SUPPLEMENT [id number] 2019-Present [phone] [id number] [place] [address] Indemnity [id number] 2019 Unknown [id number] 2000 Medicare MEDICARE MEDICAR E A AND B [id number] 2000-Present [phone] [place] [address] Medicare [id number] 2000 Medicare [id number] 2000 Medicare [id number] 1935 Unknown [id number] [id number]. 2.627 Unknown [id number] 2.16840.1.822905.3.579. 2.462 Unknown [id number] 2.16.840.1.987915.3.579. 2.462 Unknown [id number] 2.16.840.1.391752.3.579. 2.462 Unknown [id number] 2.16.840.1.187482.3.579. 2.462 Unknown [id number] 2.16.840.1.834286.3.579. 2.462 Unknown [id number] 2.16.840.1.583367.3.579. 2.462 Unknown [id number] 2.16840.1.210531.3.579. 2.462 Unknown [id number] 2.840.1.739560.3.579. 2.462 Unknown [id number] 2.840.1.347091.3.579. 2.462 Unknown [id number] 2.840.1.977241.3.579. 2.462 Unknown [id number] 2.840.1.123329.3.579. 2.462 Unknown [id number] 2.840.1.370869.3.579. 2.462 Unknown [id number] 2.840.1.768558.3.579. 2.462 Unknown [id number] 2.840.1.039767.3.579. 2.462 Unknown [id number] 2.840.1.044625.3.579. 2.462 Unknown [id number] 2.16840.1.552169.3.579. 2.462 Unknown [id number] 2.16840.1.417368.3.579. 2.462 Unknown [id number] 2.16840.1.538345.3.579. 2.462 Unknown [id number] 2.16840.1.852042.3.579. 2.462 Unknown [id number] 2.16.840.1.194956.3.579. 2.462 Unknown [id number] 2.16.840.1.925871.3.579. 2.462 Unknown [id number] 2.16.840.1.859241.3.579. 2.462 Unknown [id number] 2.16.840.1.992623.3.579. 2.462 Unknown [id number] 2.16.840.1.160460.3.579. 2.462 Unknown [id number] 2.16.840.1.204626.3.579. 2.462 Unknown [id number] 2.16.840.1.039244.3.579. 2.462 Social History Date Type Detail Facility Start: 10-14-2017 End: 04-16-2024 Tobacco smoking status NHIS Never smoked tobacco [facility] Start: 10-14-2017 End: 11-08-2021 Tobacco use and exposure Smokeless tobacco non-user [facility] Start: 05-11-2021 End: 01-29-2024 Alcohol intake Current drinker of alcohol (finding) [facility] Start: 03-14-2020 End: 03-05-2022 History SDOH Alcohol Frequency 1 [facility] Start: 10-14-2017 History SDOH Alcohol Comment occasionally [facility] Start: 03-14-2020 End: 03-05-2022 History SDOH Social Connections Phone 5 [facility] Start: 03-14-2020 End: 03-05-2022 History SDOH Social Connections Membership 2 [facility] Start: 03-14-2020 End: 03-05-2022 History SDOH Social Connections Living 4 [facility] Start: 03-14-2020 End: 03-05-2022 History SDOH Physical Activity DPW 0 [facility] Start: 03-14-2020 Education 11 [facility] Start: 1935 Sex Assigned At Not on file [facility] Start: 07-30-2021 End: 11-08-2021 Exposure to SARS-CoV-2 (event) Not sure [facility] Start: 03-23-2021 End: 10-25-2021 Tobacco smoking status NHIS Unknown if ever smoked [facility] Work Phone: Start: 1935 Sex Assigned At Female [facility] Start: 03-05-2022 End: 11-07-2022 History of Social function [facility] Start: 03-05-2022 End: 11-07-2022 Social connection and isolation panel [facility] Do you belong to any clubs or organizations such as scientologist groups, unions, fraternal or athletic groups, or school groups? No [facility] Are you now , , , , never or living with a partner? [facility] How often to you hav e a drink containing alcohol? Never [facility] How many standard dr inks containing alcohol do you have on a typical day? Patient does not drink [facility] Do you feel stress - tense, restless, nervous, or anxious, or unable to sleep at night because your mind is troubled all the time - these days [OSQ] Not at all [facility] (I/We) worried wheth er (my/our) food would run out before (I/we) got money to buy more. Never true [facility] Medical Equipment Procedure Code Equipment Code Equipment Original Text Equipment Identifier Dates [id number], [id number] Start: 01-16-2019 End: 08-24-2021 Comment on above: Test blood sugar(s) 1 times daily. Dx: Type 2 DM - Controlled E11.9 Insulin: No Test blood sugar(s) 1 times daily. Dx: Type 2 DM - E11.8 Insulin: No Goals Date Patient Goal Desired Activity /State Mental Status Date Assessment Result Facility 11-01-2021 Cognitive function Voice/Name [facility] Work Phone: Clinical Notes 06-22-2021 to 06-22-2024 Kiara Monet MA - 06/22/2024 10:12 AM Loraine Fragoso RN - 05/22/2024 11:34 AM Kiara Tello MA - 05/20/2024 7:56 AM Loraine Fragoso RN - 05/01/2024 2:05 PM EST Note Date & Type Note Facility 06-22-2024 Note HNO ID: [id number] Author: KIARA MONET MA Service: ? Author Type: Tracing Lathe Set Up Operator Type: Progress Notes Filed: 06/22/2024 16:22 Note Text: POPULATION HEALTH NAVIGATION OUTREACH Action/FYI Spoke to Rula Hanna 's daughter .Lives at [facility]. She uses the house doctor. Due (Y or N) Comments y y Reason for Outreach Care Gap/HCC or Scheduling Wellness Visits Care Gaps due: Medicare Annual Wellness Visit Patient Contacted: Spoke to patient/parent/or legal guardian Patient identified by name and : Yes Care Gap/HCC/Scheduling Wellness actions taken: Patient declined: Patient Declines Navigation Scheduling / Outreach Navigation Signature: Kiara Monet MA June 22, 2024 10:13 AM [facility] 06-22-2024 History of Present illness Narrative POPULATION HEALTH NAVIGATION OUTREACH Action/FYI Spoke to Rula Hanna 's daughter .Lives at [facility]. She uses the house doctor. Due (Y or N) Comments y y Reason for Outreach Care Gap/HCC or Scheduling Wellness Visits Care Gaps due: Medicare Annual Wellness Visit Patient Contacted: Spoke to patient/parent/or legal guardian Patient identified by name and : Yes Care Gap/HCC/Scheduling Wellness actions taken: Patient declined: Patient Declines Navigation Scheduling / Outreach Navigation Signature: Kiara Monet MA June 22, 2024 10:13 AM documented in this encounter [facility] 06-22-2024 Note Patient Outreach (NE TNAV) CYNDI MEJIA ([id number]) 1935 F Date Time Provider Department 06/22/24 KIARA MONET NETNAV During your visit today, we recorded the following information about you: Kiara Monet MA 06/22/2024 4:22 PM Signed POPULATION HEALTH NAVIGATION OUTREACH Action/FYI Spoke to Rula Hanna 's daughter .Lives at [facility]. She uses the [place] [facility]. Due (Y or N) Comments y y Reason for Outreach Care Gap/HCC or Scheduling Wellness Visits Care Gaps due: Medicare Annual Wellness Visit Patient Contacted: Spoke to patient/parent/or legal guardian Patient identified by name and : Yes Care Gap/HCC/Scheduling Wellness actions taken: Patient declined: Patient Declines Navigation Scheduling / Outreach Navigation Signature: Kiara Monet MA June 22, 2024 10:13 AM Allergies As of Date: 06/22/2024 Noted Allergy Reaction JANUVIA (SITAGLIPTIN) 10/14/2017 4 - Hives PENICILLIN 10/14/2017 4 - Hives Date Reviewed: 01/29/2024 Reviewed by: Em Aly MA - Fully Assessed Reason for Visit: Population Health Navigation Outreach [3910] Cmt: CLINT SANCHEZ PCSA Prescriptions as of 06/22/2024 - losartan (COZAAR) 25 mg tablet Take 1 tablet by mouth once daily. - nebivolol (BYSTOLIC) 5 mg tablet Take 1 tablet by mouth once daily. - HYDROcodone-acetaminophen (NORCO) 5-325 mg per tablet Take 1 tablet by mouth every 8 hours as needed for pain for up to 30 days. - traZODone (DESYREL) 50 mg tablet Take 1 tablet by mouth daily at bedtime. - loperamide HCl (IMODIUM) 2 mg tab Take 2 mg by mouth as needed. - citalopram (CELEXA) 20 mg tablet Take 1 tablet by mouth once daily. - metFORMIN ER (GLUCOPHAGE XR) 500 mg 24 hr tablet Take 1 tablet by mouth daily with breakfast. - levothyroxine (SYNTHROID) 25 mcg tablet Take 1 tablet by mouth once daily. Take on empty stomach. For thyroid. - pantoprazole DR (PROTONIX) 20 mg tablet Take 1 tablet by mouth two times a day. - atorvastatin (LIPITOR) 20 mg tablet Take 1 tablet by mouth once daily. - blood sugar diagnostic (BLOOD GLUCOSE TEST) test strip Test blood sugar(s) 1 times daily. Dx: Type 2 DM - Controlled E11.9 Insulin: No - Lancets lancets Test blood sugar(s) 1 times daily. 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] 10/16/2017 CAD (coronary artery disease) [I25.10] 10/16/2017 Hyperlipidemia, mixed [E78.2] 10/16/2017 ELKIN (obstructive sleep apnea) [G47.33] 10/16/2017 Hypertensive heart disease with heart failure (*10/16/2017 Hypomagnesemia [E83.42] 10/16/2017 Hyponatremia [E87.1] 10/16/2017 Chronic thoracic back pain [M54.6, G89.29] 01/29/2018 Risk for falls [Z91.81] 01/30/2018 03/07/2022 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] 10/08/2018 Bilateral carotid artery stenosis [I65.23] 11/06/2018 History of CVA in adulthood [Z86.73] 02/19/2019 Dysphagia [R13.10] 02/19/2019 Generalized weakness [R53.1] 12/06/2021 01/17/2022 Lumbar spinal stenosis [M48.061] 07/30/2022 Closed fracture of orbital floor (HCC) [S02.30X*11/07/2022 12/24/2023 Diagnosed: 11/07/2022 Closed head injury [S09.90XA] 11/07/2022 02/06/2023 Diagnosed: 11/07/2022 Fall [W19.XXXA] 11/07/2022 11/07/2022 Diagnosed: 11/07/2022 History of cardiovascular disorder [Z86.79] 09/25/2022 Diagnosed: 11/07/2022 History of coronary artery bypass surgery [Z95.*11/07/2022 Diagnosed: 11/07/2022 History of major vascular surgery [Z98.890] 09/25/2022 Diagnosed: 11/07/2022 Lesion of esophagus [K22.9] 11/07/2022 11/07/2022 Diagnosed: 11/07/2022 Mass of neck [R22.1] 11/08/2021 11/07/2022 Diagnosed: 11/07/2022 Pure hypercholesterolemia [E78.00] 09/25/2022 Diagnosed: 11/07/2022 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] 06/07/2022 Diagnosed: 11/07/2022 Other specified anemias [D64.89] 11/07/2022 Major depressive disorder, recurrent, in partia*12/24/2023 Encounter Status:Closed by KIARA MONET on 06/22/24 [facility] 05-22-2024 Note HNO ID: [id number] Author: LORAINE PATTERSON, YOHANNES Service: ? Author Type: Registered Nurse Type: Progress Notes Filed: 05/22/2024 12:21 Note Text: CDM Care Path Telephonic Outreach Provider Action/FYI Patient identified by Name and Date of . Discussed care with [id number], Rula. Patient out of rehab AND in LTC Rula asked PCC to remove [phone] from chart Rula stated patient will be followed by house doctor at facility Patient no longer requires CDM calls Program Details Chronic Disease Management Status: Paused Effective Dates: 03/25/2024 - present Responsible Staff: Loraine Patterson, YOHANNES Support and Services: Hypertension, Diabetes Program Goals Targets Target Due Completed Completed By Outcome General education provided (managing stress, where to go/how to contact, etc.) 04/24/2024 -- -- -- 03/25/2024 Provided number to Healthy at Home Annual Medicare Wellness visit addressed -- -- -- -- Comprehensive Diabetes education provided -- -- -- -- Comprehensive HTN education provided -- -- -- -- Diabetes lab care gaps addressed -- -- -- -- HTN lab care gaps addressed -- -- -- -- Patient-stated goal addressed (add comment) -- -- -- -- Intake assessments completed: ADLs, Fall Risk, SDOH 04/24/2024 03/25/2024 Loraine Patterson RN Complete Biannual PCP visit addressed -- 03/25/2024 Loraine Patterson RN Complete/Scheduled Sees PCP quarterly. Next visit 05/01/2024. Assessments No documentation this encounter Interventions No checklist tasks for this episode were completed during this visit, and no tasks for this episode are pending completion. Loraine Patterson RN May 22, 2024 11:34 AM [facility] 05-22-2024 History of Present illness Narrative Images from the original note were not included. CDM Care Path Telephonic Outreach Provider Action/FYI Patient identified by Name and Date of . Discussed care with Qjekziar-gr-qvs, Rula. Patient out of rehab & in LTC Rula asked PCC to remove [phone] from chart Rula stated patient will be followed by house doctor at facility Patient no longer requires CDM calls Program Details Chronic Disease Management Status: Paused Effective Dates: 03/25/2024 - present Responsible Staff: Loraine Patterson RN Support and Services: Hypertension, Diabetes Program Goals Targets Target Due Completed Completed By Outcome General education provided (managing stress, where to go/how to contact, etc.) 04/24/2024 -- -- -- 03/25/2024 Provided number to Healthy at Home Annual Medicare Wellness visit addressed -- -- -- -- Comprehensive Diabetes education provided -- -- -- -- Comprehensive HTN education provided -- -- -- -- Diabetes lab care gaps addressed -- -- -- -- HTN lab care gaps addressed -- -- -- -- Patient-stated goal addressed (add comment) -- -- -- -- Intake assessments completed: ADLs, Fall Risk, SDOH 04/24/2024 03/25/2024 Loraine Patterson RN Complete Biannual PCP visit addressed -- 03/25/2024 Loraine Patterson RN Complete/Scheduled Sees PCP quarterly. Next visit 05/01/2024. Assessments No documentation this encounter Interventions No checklist tasks for this episode were completed during this visit, and no tasks for this episode are pending completion. Loraine Patterson RN May 22, 2024 11:34 AM documented in this encounter [facility] 05-22-2024 Note Patient Outreach (AM [facility]) CYNDI MEJIA ([id number]) 1935 F Date Time Provider Department 05/22/24 LORAINE PATTERSON [facility] During your visit today, we recorded the following information about you: Loraine Patterson RN 05/22/2024 12:21 PM Signed CDM Care Path Telephonic Outreach Provider / Patient identified by Name and Date of . Discussed care with [id number], Rula. Patient out of rehab AND in LTC Rula asked PCC to remove [phone] from chart Rula stated patient will be followed by house doctor at facility Patient no longer requires CDM calls Program Details Chronic Disease Management Status: Paused Effective Dates: 03/25/2024 - present Responsible Staff: Loraine Patterson RN Support and Services: Hypertension, Diabetes Program Goals Targets Target Due Completed Completed By Outcome General education provided (managing stress, where to go/how to contact, etc.) 04/24/2024 -- -- -- 03/25/2024 Provided number to Healthy at Home Annual Medicare Wellness visit addressed -- -- -- -- Comprehensive Diabetes education provided -- -- -- -- Comprehensive HTN education provided -- -- -- -- Diabetes lab care gaps addressed -- -- -- -- HTN lab care gaps addressed -- -- -- -- Patient-stated goal addressed (add comment) -- -- -- -- Intake assessments completed: ADLs, Fall Risk, SDOH 04/24/2024 03/25/2024 Loraine Patterson RN Complete Biannual PCP visit addressed -- 03/25/2024 Loraine Patterson RN Complete/Scheduled Sees PCP quarterly. Next visit 05/01/2024. Assessments No documentation this encounter Interventions No checklist tasks for this episode were completed during this visit, and no tasks for this episode are pending completion. Loraine Patterson RN May 22, 2024 11:34 AM Allergies As of Date: 05/22/2024 Noted Allergy Reaction JANUVIA (SITAGLIPTIN) 10/14/2017 4 - Hives PENICILLIN 10/14/2017 4 - Hives Date Reviewed: 01/29/2024 Reviewed by: Em Aly MA - Fully Assessed Prescriptions as of 05/22/2024 - losartan (COZAAR) 25 mg tablet Take 1 tablet by mouth once daily. - nebivolol (BYSTOLIC) 5 mg tablet Take 1 tablet by mouth once daily. - HYDROcodone-acetaminophen (NORCO) 5-325 mg per tablet Take 1 tablet by mouth every 8 hours as needed for pain for up to 30 days. - traZODone (DESYREL) 50 mg tablet Take 1 tablet by mouth daily at bedtime. - loperamide HCl (IMODIUM) 2 mg tab Take 2 mg by mouth as needed. - citalopram (CELEXA) 20 mg tablet Take 1 tablet by mouth once daily. - metFORMIN ER (GLUCOPHAGE XR) 500 mg 24 hr tablet Take 1 tablet by mouth daily with breakfast. - levothyroxine (SYNTHROID) 25 mcg tablet Take 1 tablet by mouth once daily. Take on empty stomach. For thyroid. - pantoprazole DR (PROTONIX) 20 mg tablet Take 1 tablet by mouth two times a day. - atorvastatin (LIPITOR) 20 mg tablet Take 1 tablet by mouth once daily. - blood sugar diagnostic (BLOOD GLUCOSE TEST) test strip Test blood sugar(s) 1 times daily. Dx: Type 2 DM - Controlled E11.9 Insulin: No - Lancets lancets Test blood sugar(s) 1 times daily. 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] 10/16/2017 CAD (coronary artery disease) [I25.10] 10/16/2017 Hyperlipidemia, mixed [E78.2] 10/16/2017 ELKIN (obstructive sleep apnea) [G47.33] 10/16/2017 Hypertensive heart disease with heart failure (*10/16/2017 Hypomagnesemia [E83.42] 10/16/2017 Hyponatremia [E87.1] 10/16/2017 Chronic thoracic back pain [M54.6, G89.29] 01/29/2018 Risk for falls [Z91.81] 01/30/2018 03/07/2022 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] 10/08/2018 Bilateral carotid artery stenosis [I65.23] 11/06/2018 History of CVA in adulthood [Z86.73] 02/19/2019 Dysphagia [R13.10] 02/19/2019 Generalized weakness [R53.1] 12/06/2021 01/17/2022 Lumbar spinal stenosis [M48.061] 07/30/2022 Closed fracture of orbital floor (HCC) [S02.30X*11/07/2022 12/24/2023 Diagnosed: 11/07/2022 Closed head injury [S09.90XA] 11/07/2022 02/06/2023 Diagnosed: 11/07/2022 Fall [W19.XXXA] 11/07/2022 11/07/2022 Diagnosed: 11/07/2022 History of cardiovascular disorder [Z86.79] 09/25/2022 Diagnosed: 11/07/2022 History of coronary artery bypass surgery [Z95.*11/07/2022 Diagnosed: 11/07/2022 History of major vascular surgery [Z98.890] 09/25/2022 Diagnosed: 11/07/2022 Lesion of esophagus [K22.9] 11/07/2022 11/07/2022 Diagnosed: 11/07/2022 Mass of neck [R22.1] 11/08/2021 11/07/2022 Diagnosed: 11/07/2022 Pure hypercholesterolemia [E78.00] 09/25/2022 Diagnosed: 0 (more content not included)... [facility] 05-20-2024 Note HNO ID: [id number] Author: KIARA MONET MA Service: ? Author Type: Tracing Lathe Set Up Operator Type: Progress Notes Filed: 05/20/2024 16:13 Note Text: POPULATION HEALTH NAVIGATION OUTREACH Action/FYI NO ANSWER MYCHART MESSAGE SENT Topic Due (Y or N) Comments Medicare Wellness Y PCP Follow up Y Colorectal Cancer Screening Controlling Blood Pressure A1C Y ORDER IS DONE HCC Y Flu Vaccine Care Everywhere Reviewed MyChart Activation Updated Appointment Note Reason for Outreach Care Gap/HCC or Scheduling Wellness Visits Care Gaps due: Medicare Annual Wellness Visit Follow-up Appointment HBA1C Patient Contacted: Unable or unnecessary to reach patient: Unable to leave message MyChart message sent HCC related Navigation Signature: Kiara Monet MA May 20, 2024 7:56 AM [facility] 05-20-2024 History of Present illness Narrative POPULATION HEALTH NAVIGATION OUTREACH Action/FYI NO ANSWER MYCHART MESSAGE SENT Topic Due (Y or N) Comments Medicare Wellness Y PCP Follow up Y Colorectal Cancer Screening Controlling Blood Pressure A1C Y ORDER IS DONE HCC Y Flu Vaccine Care Everywhere Reviewed MyChart Activation Updated Appointment Note Reason for Outreach Care Gap/HCC or Scheduling Wellness Visits Care Gaps due: Medicare Annual Wellness Visit Follow-up Appointment HBA1C Patient Contacted: Unable or unnecessary to reach patient: Unable to leave message MyChart message sent HCC related Navigation Signature: Kiara Monet MA May 20, 2024 7:56 AM documented in this encounter [facility] 05-20-2024 Note Patient Outreach (NE TNAV) CYNDI MEJIA ([id number]) 1935 F Date Time Provider Department 05/20/24 KIARA MONET NET[facility] During your visit today, we recorded the following information about you: Kiara Monet MA 05/20/2024 4:13 PM Signed POPULATION HEALTH NAVIGATION OUTREACH Action/FYI NO ANSWER [facility] [employer] MESSAGE SENT Topic Due (Y or N) Comments Medicare Wellness Y PCP Follow up Y Colorectal Cancer Screening Controlling Blood Pressure A1C Y ORDER IS DONE HCC Y Flu Vaccine Care Everywhere Reviewed MyChart Activation Updated Appointment Note Reason for Outreach Care Gap/HCC or Scheduling Wellness Visits Care Gaps due: Medicare Annual Wellness Visit Follow-up Appointment HBA1C Patient Contacted: Unable or unnecessary to reach patient: Unable to leave message [employer] message sent HCC related Navigation Signature: Kiara Monet MA May 20, 2024 7:56 AM Allergies As of Date: 05/20/2024 Noted Allergy Reaction JANUVIA (SITAGLIPTIN) 10/14/2017 4 - Hives PENICILLIN 10/14/2017 4 - Hives Date Reviewed: 01/29/2024 Reviewed by: Em Aly MA - Fully Assessed Reason for Visit: Population Health Navigation Outreach [3910] Cmt: ACO WORKBENC LAURA Prescriptions as of 05/20/2024 - losartan (COZAAR) 25 mg tablet Take 1 tablet by mouth once daily. - nebivolol (BYSTOLIC) 5 mg tablet Take 1 tablet by mouth once daily. - HYDROcodone-acetaminophen (NORCO) 5-325 mg per tablet Take 1 tablet by mouth every 8 hours as needed for pain for up to 30 days. - traZODone (DESYREL) 50 mg tablet Take 1 tablet by mouth daily at bedtime. - loperamide HCl (IMODIUM) 2 mg tab Take 2 mg by mouth as needed. - citalopram (CELEXA) 20 mg tablet Take 1 tablet by mouth once daily. - metFORMIN ER (GLUCOPHAGE XR) 500 mg 24 hr tablet Take 1 tablet by mouth daily with breakfast. - levothyroxine (SYNTHROID) 25 mcg tablet Take 1 tablet by mouth once daily. Take on empty stomach. For thyroid. - pantoprazole DR (PROTONIX) 20 mg tablet Take 1 tablet by mouth two times a day. - atorvastatin (LIPITOR) 20 mg tablet Take 1 tablet by mouth once daily. - blood sugar diagnostic (BLOOD GLUCOSE TEST) test strip Test blood sugar(s) 1 times daily. Dx: Type 2 DM - Controlled E11.9 Insulin: No - Lancets lancets Test blood sugar(s) 1 times daily. 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] 10/16/2017 CAD (coronary artery disease) [I25.10] 10/16/2017 Hyperlipidemia, mixed [E78.2] 10/16/2017 ELKIN (obstructive sleep apnea) [G47.33] 10/16/2017 Hypertensive heart disease with heart failure (*10/16/2017 Hypomagnesemia [E83.42] 10/16/2017 Hyponatremia [E87.1] 10/16/2017 Chronic thoracic back pain [M54.6, G89.29] 01/29/2018 Risk for falls [Z91.81] 01/30/2018 03/07/2022 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] 10/08/2018 Bilateral carotid artery stenosis [I65.23] 11/06/2018 History of CVA in adulthood [Z86.73] 02/19/2019 Dysphagia [R13.10] 02/19/2019 Generalized weakness [R53.1] 12/06/2021 01/17/2022 Lumbar spinal stenosis [M48.061] 07/30/2022 Closed fracture of orbital floor (HCC) [S02.30X*11/07/2022 12/24/2023 Diagnosed: 11/07/2022 Closed head injury [S09.90XA] 11/07/2022 02/06/2023 Diagnosed: 11/07/2022 Fall [W19.XXXA] 11/07/2022 11/07/2022 Diagnosed: 11/07/2022 History of cardiovascular disorder [Z86.79] 09/25/2022 Diagnosed: 11/07/2022 History of coronary artery bypass surgery [Z95.*11/07/2022 Diagnosed: 11/07/2022 History of major vascular surgery [Z98.890] 09/25/2022 Diagnosed: 11/07/2022 Lesion of esophagus [K22.9] 11/07/2022 11/07/2022 Diagnosed: 11/07/2022 Mass of neck [R22.1] 11/08/2021 11/07/2022 Diagnosed: 11/07/2022 Pure hypercholesterolemia [E78.00] 09/25/2022 Diagnosed: 11/07/2022 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] 06/07/2022 Diagnosed: 11/07/2022 Other specified anemias [D64.89] 11/07/2022 Major depressive disorder, recurrent, in partia*12/24/2023 Encounter Status:Closed by KIARA MONET on 05/20/24 [facility] 05-04-2024 Note HNO ID: [id number] Author: JEFFERSON NG, ? Service: ? Author Type: Tracing Lathe Set Up Operator Type: Progress Notes Filed: 05/04/2024 11:10 Note Text: PAC TCM OUTREACH [facility]ION [facility] (SNF) TRANSITIONAL CARE MANAGEMENT (TCM) POST-ACUTE CARE (PAC) PROGRAM LOS Wan Support Specialist Outreach PAC Transition Navigator Action/FYI: Diabetes Program Details Post Acute Care Status: Enrolled Effective Dates: 05/04/2024 - present Responsible Staff: POST-ACUTE CARE ACO NAVIGATION Support and Services:Post-SNF Transition Support PAC Transition Navigator Handoff Hospitalization Reason for hospitalization: mechanical fall, closed fracture of proximal end of right humerus, Longterm Facility Summary SNF Stay Summary: [facility]F did not follow in SNF Specialized Discharge Instructions/Needs Specialized discharge instructions/needs: -- (unknown) Prior Level of Function Prior level of function (PLOF)-Home setting: Facility with assistance Prior level of function (PLOF)-Ambulation/locomotion: Ambulation with device Prior level of function (PLOF)-Driving prior to admission: No Prior level of function (PLOF)-ADLs: Independent Prior level of function (PLOF)-iADLs: Needs assistance Durable Medical Equipment DME owned: Walker/wheeled walker DME ordered: Unknown Home Care Services Home care ordered: Unknown Current Resources Current/Active resources in the community: Family Patient has been recently discharged from a snf facility. Hospitalization Details Hospital discharged from: -- ([facility] Hospital admission date: 04/16/24 Hospital discharge date: 04/19/24 Longterm Facility Details Non-Network Facilities: -- ([facility] Sw[facility] Bed Unit ) SNF admission date: 04/16/24 SNF discharge date: 05/01/24 SNF Target Skilled LOS: 18 SNF Actual Skilled LOS: 12 Follow-up appts: PAC Transition Navigator, please contact patient for PAC TCM Outreach and continuity of care. [facility] 05-01-2024 Note HNO ID: [id number] Author: LORAINE PATTERSON RN Service: ? Author Type: Registered Nurse Type: Progress Notes Filed: 05/01/2024 14:15 Note Text: CDM Care Path Telephonic Outreach Provider Action/FYI Patient identified by Name and Date of . Discussed care with Daughter in Rula aldridge, retired [employer]. Patient fell about 2 weeks ago while washing feet on edge of bed -Feet did not touch ground AND fell AND broke right humeral head Currently at [facility] SNF Program Details Chronic Disease Management Status: Paused Effective Dates: 03/25/2024 - present Responsible Staff: Loraine Patterson, YOHANNES Support and Services: Hypertension, Diabetes Program Goals Targets Target Due Completed Completed By Outcome General education provided (managing stress, where to go/how to contact, etc.) 04/24/2024 -- -- -- 03/25/2024 Provided number to Healthy at Home Annual Medicare Wellness visit addressed -- -- -- -- Comprehensive Diabetes education provided -- -- -- -- Comprehensive HTN education provided -- -- -- -- Diabetes lab care gaps addressed -- -- -- -- HTN lab care gaps addressed -- -- -- -- Patient-stated goal addressed (add comment) -- -- -- -- Intake assessments completed: ADLs, Fall Risk, SDOH 04/24/2024 03/25/2024 Loraine Patterson RN Complete Biannual PCP visit addressed -- 03/25/2024 Loraine Patterson RN Complete/Scheduled Sees PCP quarterly. Next visit 05/01/2024. Assessments No documentation this encounter Interventions The following were addressed during this visit: - Bi-Weekly Outreach (Recurring) Loraine Patterson RN May 01, 2024 2:05 PM [facility] 05-01-2024 History of Present illness Narrative Images from the original note were not included. CDM Care Path Telephonic Outreach Provider Action/FYI Patient identified by Name and Date of . Discussed care with Daughter in law, Rula, retired [employer] TE[employer]. Patient fell about 2 weeks ago while washing feet on edge of bed -Feet did not touch ground & fell & broke right humeral head Currently at [facility] Program Details Chronic Disease Management Status: Paused Effective Dates: 03/25/2024 - present Responsible Staff: Loraine Patterson, RN Support and Services: Hypertension, Diabetes Program Goals Targets Target Due Completed Completed By Outcome General education provided (managing stress, where to go/how to contact, etc.) 04/24/2024 -- -- -- 03/25/2024 Provided number to Healthy at Home Annual Medicare Wellness visit addressed -- -- -- -- Comprehensive Diabetes education provided -- -- -- -- Comprehensive HTN education provided -- -- -- -- Diabetes lab care gaps addressed -- -- -- -- HTN lab care gaps addressed -- -- -- -- Patient-stated goal addressed (add comment) -- -- -- -- Intake assessments completed: ADLs, Fall Risk, SDOH 04/24/2024 03/25/2024 Loraine Patterson RN Complete Biannual PCP visit addressed -- 03/25/2024 Loraine Patterson RN Complete/Scheduled Sees PCP quarterly. Next visit 05/01/2024. Assessments No documentation this encounter Interventions The following were addressed during this visit: - Bi-Weekly Outreach (Recurring) Loraine Patterson RN May 01, 2024 2:05 PM documented in this encounter [facility] 05-01-2024 Note [place] Out[place] CYNDI MEJIA ([id number]) 1935 F Date Time Provider Department 05/01/24 LORAINE PATTERSON During your visit today, we recorded the following information about you: Loraine Patterson RN 05/01/2024 2:15 PM Signed CDM Care Path Telephonic Outreach Provider Action/FYI Patient identified by Name and Date of . Discussed care with Daughter in law, Rula, retired [employer]. Patient fell about 2 weeks ago while washing feet on edge of bed -Feet did not touch ground AND fell AND broke right humeral head Currently at [facility] Program Details Chronic Disease Management Status: Paused Effective Dates: 03/25/2024 - present Responsible Staff: Loraine Patterson RN Support and Services: Hypertension, Diabetes Program Goals Targets Target Due Completed Completed By Outcome General education provided (managing stress, where to go/how to contact, etc.) 04/24/2024 -- -- -- 03/25/2024 Provided number to Healthy at Home Annual Medicare Wellness visit addressed -- -- -- -- Comprehensive Diabetes education provided -- -- -- -- Comprehensive HTN education provided -- -- -- -- Diabetes lab care gaps addressed -- -- -- -- HTN lab care gaps addressed -- -- -- -- Patient-stated goal addressed (add comment) -- -- -- -- Intake assessments completed: ADLs, Fall Risk, SDOH 04/24/2024 03/25/2024 Loraine Patterson RN Complete Biannual PCP visit addressed -- 03/25/2024 Loraine Patterson RN Complete/Scheduled Sees PCP quarterly. Next visit 05/01/2024. Assessments No documentation this encounter Interventions The following were addressed during this visit: - Bi-Weekly Outreach (Recurring) Loraine Patterson RN May 01, 2024 2:05 PM Allergies As of Date: 05/01/2024 Noted Allergy Reaction JANUVIA (SITAGLIPTIN) 10/14/2017 4 - Hives PENICILLIN 10/14/2017 4 - Hives Date Reviewed: 01/29/2024 Reviewed by: Em Aly MA - Fully Assessed Prescriptions as of 05/01/2024 - losartan (COZAAR) 25 mg tablet Take 1 tablet by mouth once daily. - nebivolol (BYSTOLIC) 5 mg tablet Take 1 tablet by mouth once daily. - HYDROcodone-acetaminophen (NORCO) 5-325 mg per tablet Take 1 tablet by mouth every 8 hours as needed for pain for up to 30 days. - traZODone (DESYREL) 50 mg tablet Take 1 tablet by mouth daily at bedtime. - loperamide HCl (IMODIUM) 2 mg tab Take 2 mg by mouth as needed. - citalopram (CELEXA) 20 mg tablet Take 1 tablet by mouth once daily. - metFORMIN ER (GLUCOPHAGE XR) 500 mg 24 hr tablet Take 1 tablet by mouth daily with breakfast. - levothyroxine (SYNTHROID) 25 mcg tablet Take 1 tablet by mouth once daily. Take on empty stomach. For thyroid. - pantoprazole DR (PROTONIX) 20 mg tablet Take 1 tablet by mouth two times a day. - atorvastatin (LIPITOR) 20 mg tablet Take 1 tablet by mouth once daily. - blood sugar diagnostic (BLOOD GLUCOSE TEST) test strip Test blood sugar(s) 1 times daily. Dx: Type 2 DM - Controlled E11.9 Insulin: No - Lancets lancets Test blood sugar(s) 1 times daily. 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] 10/16/2017 CAD (coronary artery disease) [I25.10] 10/16/2017 Hyperlipidemia, mixed [E78.2] 10/16/2017 ELKIN (obstructive sleep apnea) [G47.33] 10/16/2017 Hypertensive heart disease with heart failure (*10/16/2017 Hypomagnesemia [E83.42] 10/16/2017 Hyponatremia [E87.1] 10/16/2017 Chronic thoracic back pain [M54.6, G89.29] 01/29/2018 Risk for falls [Z91.81] 01/30/2018 03/07/2022 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] 10/08/2018 Bilateral carotid artery stenosis [I65.23] 11/06/2018 History of CVA in adulthood [Z86.73] 02/19/2019 Dysphagia [R13.10] 02/19/2019 Generalized weakness [R53.1] 12/06/2021 01/17/2022 Lumbar spinal stenosis [M48.061] 07/30/2022 Closed fracture of orbital floor (HCC) [S02.30X*11/07/2022 12/24/2023 Diagnosed: 11/07/2022 Closed head injury [S09.90XA] 11/07/2022 02/06/2023 Diagnosed: 11/07/2022 Fall [W19.XXXA] 11/07/2022 11/07/2022 Diagnosed: 11/07/2022 History of cardiovascular disorder [Z86.79] 09/25/2022 Diagnosed: 11/07/2022 History of coronary artery bypass surgery [Z95.*11/07/2022 Diagnosed: 11/07/2022 History of major vascular surgery [Z98.890] 09/25/2022 Diagnosed: 11/07/2022 Lesion of esophagus [K22.9] 11/07/2022 11/07/2022 Diagnosed: 11/07/2022 Mass of neck [R22.1] 11/08/2021 11/07/2022 Diagnosed: 11/07/2022 Pure hypercholesterolemia [E78.00] 09/25/2022 Diagnosed: 11/07/2022 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] (more content not included)... [facility] 04-19-2024 Note [facility] Medical Records Department [address] [place] [address] Discharge Summary 04/19/2442 MR#: [id number] Acct: [id number] Name: CYNDI MEJIA Rep #: [id number] : [id number] 89 From: Simon Mcfarland DO PCP: Dr. Shaquille Benjamin MD Status:DIS IN [place] [facility] [id number] Providers Date of Admission: 04/16/24 Date of Discharge: 04/19/24 Primary Care Physician: Dr. Shaquille Benjamin MD Reason For Visit: FALL, RUE HUMERAL NECK FRACTURE, ADULT FTT Diagnosis Discharge Diagnosis (1) Closed fracture of proximal end of right humerus: Status: Acute Code(s): S42.201A - Unspecified fracture of upper end of right humerus, initial encounter for closed fracture Medications at Discharge Home Medications losartan 25 mg tablet 25 mg PO DAILY bp 10/08/18 trazodone 50 mg tablet 50 mg PO QHS mood 10/08/18 levothyroxine 25 mcg tablet 25 mcg PO DAILY thyroid 11/20/19 citalopram 20 mg tablet 20 mg PO DAILY depression 09/28/21 metformin 500 mg tablet 500 mg PO BID 03/07/23 nebivolol 5 mg tablet 5 mg PO DAILY htn 02/24/24 atorvastatin 20 mg tablet 20 mg PO QHS hld 04/16/24 lidocaine 4 % topical patch (Lidocare) 1 patch topical DAILY PRN pain 04/16/24 loperamide 2 mg capsule (Anti-Diarrheal (loperamide)) 2 mg PO TID PRN loose stool 04/16/24 magnesium hydroxide 400 mg/5 mL oral suspension (Dulcolax (magnesium hydroxide)) 30 ml PO DAILY PRN constipation 04/16/24 magnesium oxide 400 mg PO BID supplement 04/16/24 pantoprazole 20 mg tablet,delayed release 20 mg PO BID gerd 04/16/24 acetaminophen 325 mg tablet 1,000 mg (3.0769 x 325 mg) PO Q8 30 days #0 tabs 04/19/24 oxycodone 5 mg tablet 5 mg PO Q4H PRN PRN Pain Score 4-10 5 days #0 tabs 04/19/24 sennosides 8.6 mg-docusate sodium 50 mg tablet (Stimulant Laxative Plus) 2 tab PO BID #0 tabs 04/19/24 Hospital Course Operations None Procedures - (CT brain, CT facial/sinus, shoulder x-ray) Summary of Care Provided Minutes Spent on Discharge: 35 Hospital Course: Patient is an 89-year-old female who presented [facility] ED on 04/16/2024 with right arm pain after a fall. Short hospital course as noted below. Discharged to SNF in stable condition on 04/19. 1. Acute on chronic debility secondary to right humerus fracture after mechanical fall ??? PT/OT/case management followed. Patient lives in assisted living at [facility]. Had a fall on the day of admission with subsequent right arm pain. Right shoulder x-ray showed acute displaced right humeral neck fracture. Per orthopedics, no need for surgical intervention, okay for conservative management with placement in sling. Pain control with scheduled Tylenol and oxycodone as needed. Medically stable for discharge on 04/18, [facility] 2. Hyponatremia, stable ??? Sodium 128 on admit, chloride 92. No previous labs for comparison. Sodium remained stable 127- 129 during hospitalization despite IV fluid resuscitation, suspect this is her baseline. No mental status changes noted. Chronic medical conditions: ??? CAD s/p CABG, hypertension, hyperlipidemia: Continue home statin, losartan, nebivolol. ??? Type 2 diabetes mellitus: Continue Accu-Cheks and sliding scale insulin with meals while inpatient, okay to resume home metformin on discharge. ??? Mild chronic anemia: Hemoglobin stable around baseline 9-10 during hospitalization. ??? Anxiety/depression: Stable. Continue home citalopram. ??? GERD: Continue home PPI. ??? History of sick sinus syndrome/tachybradycardia syndrome: Has not had pacemaker placed, continue close outpatient follow-up with cardiology. ??? History of ascending aortic aneurysm s/p repair Total clinical time spent by myself addressing the patient's medical issues, reviewing all the data, and collaborating with patient's care team: 35 minutes. Physical Exam Const alert, oriented x3, no apparent distress and average body habitus Constitutional Narrative: Elderly female, mentally sharp for her age, mildly fatigued appearing but energy improved from admission, otherwise sitting up in bedside chair fairly comfortably, conversing normally and in no acute distress. Stable. General Appearance: cooperative and comfortable HEENT normocephalic, head/scalp atraumatic, hearing grossly normal bilaterally, nasal mucous membranes and turbinates normal and moist oral mucous membranes Eyes PERRL, EOMs intact bilaterally and conjunctivae normal Neck full ROM Chest inspection of chest normal Resp normal respiratory effort, normal air movement, no use of accessory muscles and clear to auscultation bilaterally Cardio regular rate, regular rhythm, no murmurs and peripheral pulses 2+ throughout GI normal to inspection, nondistended, normoactive bowel sounds, soft to palpation, non-tender and non- distended Back/Spine normal ROM Extremity Extremity (more content not included)... [facility] 04-08-2024 Note HNO ID: [id number] Author: CARISSA LARSON RN Service: ? Author Type: Registered Nurse Type: Progress Notes Filed: 04/08/2024 14:55 Note Text: CDM Care Path Telephonic Outreach Provider Action/FYI Patient identified by Name and Date of . Discussed care with patient. Program Details Chronic Disease Management Status: Enrolled Effective Dates: 03/25/2024 - present Responsible Staff: Loraine Patterson RN Support and Services: Hypertension, Diabetes Program Goals Targets Target Due Completed Completed By Outcome General education provided (managing stress, where to go/how to contact, etc.) 04/24/2024 -- -- -- 03/25/2024 Provided number to Healthy at Home Annual Medicare Wellness visit addressed 06/23/2024 -- -- -- Comprehensive Diabetes education provided 06/23/2024 -- -- -- Comprehensive HTN education provided 06/23/2024 -- -- -- Diabetes lab care gaps addressed 06/23/2024 -- -- -- HTN lab care gaps addressed 06/23/2024 -- -- -- Patient-stated goal addressed (add comment) 06/23/2024 -- -- -- Intake assessments completed: ADLs, Fall Risk, SDOH 04/24/2024 03/25/2024 Loraine Patterson RN Complete Biannual PCP visit addressed 06/23/2024 03/25/2024 Loraine Patterson RN Complete/Scheduled Sees PCP quarterly. Next visit 05/01/2024. Assessments CDM Assessment Symptoms: Are you experiencing any new or worsening symptoms that you need to talk about today?: No ADLs No documentation this encounter Fall Risk No documentation this encounter SDOH No documentation this encounter Interventions The following were addressed during this visit: - Evaluate for Consult to Diabetes Education - Evaluate for Referral to Pharmacy for Diabetes Medication Management - Evaluate for Referral to Endocrinology ([facility]AE only) - Month 1: Provide General Education: Where to Go for Care - Month 1: Provide General Education: How to Contact Your Physician Team - Bi-Weekly Outreach (Recurring) Disposition Based on news gathering technician, the following disposition is advised: No action needed Carissa Larson RN April 08, 2024 2:53 PM [facility] 04-08-2024 History of Present illness Narrative Images from the original note were not included. CD Care Path Telephonic Outreach Provider Action/FYI Patient identified by Name and Date of . Discussed care with patient. Program Details Chronic Disease Management Status: Enrolled Effective Dates: 03/25/2024 - present Responsible Staff: Loraine Patterson RN Support and Services: Hypertension, Diabetes Program Goals Targets Target Due Completed Completed By Outcome General education provided (managing stress, where to go/how to contact, etc.) 04/24/2024 -- -- -- 03/25/2024 Provided number to Healthy at Home Annual Medicare Wellness visit addressed 06/23/2024 -- -- -- Comprehensive Diabetes education provided 06/23/2024 -- -- -- Comprehensive HTN education provided 06/23/2024 -- -- -- Diabetes lab care gaps addressed 06/23/2024 -- -- -- HTN lab care gaps addressed 06/23/2024 -- -- -- Patient-stated goal addressed (add comment) 06/23/2024 -- -- -- Intake assessments completed: ADLs, Fall Risk, SDOH 04/24/2024 03/25/2024 Loraine aPtterson RN Complete Biannual PCP visit addressed 06/23/2024 03/25/2024 Loraine Patterson RN Complete/Scheduled Sees PCP quarterly. Next visit 05/01/2024. Assessments [facility] Assessment Symptoms: Are you experiencing any new or worsening symptoms that you need to talk about today?: No ADLs No documentation this encounter Fall Risk No documentation this encounter SDOH No documentation this encounter Interventions The following were addressed during this visit: - Evaluate for Consult to Diabetes Education - Evaluate for Referral to Pharmacy for Diabetes Medication Management - Evaluate for Referral to Endocrinology ([facility]AE only) - Month 1: Provide General Education: Where to Go for Care - Month 1: Provide General Education: How to Contact Your Physician Team - Bi-Weekly Outreach (Recurring) Disposition Based on news gathering technician, the following disposition is advised: No action needed Carissa Larson RN April 08, 2024 2:53 PM documented in this encounter [facility] 04-08-2024 Note [place] Out[place] CYNDI MEJIA ([id number]) 1935 F Date Time Provider Department 04/08/24 CARISSA LARSON During your visit today, we recorded the following information about you: Carissa Larson RN 04/08/2024 2:55 PM Signed CDM Care Path Telephonic Outreach Provider Action/FYI Patient identified by Name and Date of . Discussed care with patient. Program Details Chronic Disease Management Status: Enrolled Effective Dates: 03/25/2024 - present Responsible Staff: Loraine Patterson RN Support and Services: Hypertension, Diabetes Program Goals Targets Target Due Completed Completed By Outcome General education provided (managing stress, where to go/how to contact, etc.) 04/24/2024 -- -- -- 03/25/2024 Provided number to Healthy at Home Annual Medicare Wellness visit addressed 06/23/2024 -- -- -- Comprehensive Diabetes education provided 06/23/2024 -- -- -- Comprehensive HTN education provided 06/23/2024 -- -- -- Diabetes lab care gaps addressed 06/23/2024 -- -- -- HTN lab care gaps addressed 06/23/2024 -- -- -- Patient-stated goal addressed (add comment) 06/23/2024 -- -- -- Intake assessments completed: ADLs, Fall Risk, SDOH 04/24/2024 03/25/2024 Loraine Patterson, YOHANNES Complete Biannual PCP visit addressed 06/23/2024 03/25/2024 Loraine Patterson RN Complete/Scheduled Sees PCP quarterly. Next visit 05/01/2024. Assessments CDM Assessment Symptoms: Are you experiencing any new or worsening symptoms that you need to talk about today?: No ADLs No documentation this encounter Fall Risk No documentation this encounter SDOH No documentation this encounter Interventions The following were addressed during this visit: - Evaluate for Consult to Diabetes Education - Evaluate for Referral to Pharmacy for Diabetes Medication Management - Evaluate for Referral to Endocrinology ([facility] only) - Month 1: Provide General Education: Where to Go for Care - Month 1: Provide General Education: How to Contact Your Physician Team - Bi-Weekly Outreach (Recurring) Disposition Based on news gathering technician, the following disposition is advised: No action needed Carissa Larson RN April 08, 2024 2:53 PM Allergies As of Date: 04/08/2024 Noted Allergy Reaction JANUVIA (SITAGLIPTIN) 10/14/2017 4 - Hives PENICILLIN 10/14/2017 4 - Hives Date Reviewed: 01/29/2024 Reviewed by: Em Aly MA - Fully Assessed Prescriptions as of 04/08/2024 - losartan (COZAAR) 25 mg tablet Take 1 tablet by mouth once daily. - nebivolol (BYSTOLIC) 5 mg tablet Take 1 tablet by mouth once daily. - HYDROcodone-acetaminophen (NORCO) 5-325 mg per tablet Take 1 tablet by mouth every 8 hours as needed for pain for up to 30 days. - traZODone (DESYREL) 50 mg tablet Take 1 tablet by mouth daily at bedtime. - loperamide HCl (IMODIUM) 2 mg tab Take 2 mg by mouth as needed. - citalopram (CELEXA) 20 mg tablet Take 1 tablet by mouth once daily. - metFORMIN ER (GLUCOPHAGE XR) 500 mg 24 hr tablet Take 1 tablet by mouth daily with breakfast. - levothyroxine (SYNTHROID) 25 mcg tablet Take 1 tablet by mouth once daily. Take on empty stomach. For thyroid. - pantoprazole DR (PROTONIX) 20 mg tablet Take 1 tablet by mouth two times a day. - atorvastatin (LIPITOR) 20 mg tablet Take 1 tablet by mouth once daily. - blood sugar diagnostic (BLOOD GLUCOSE TEST) test strip Test blood sugar(s) 1 times daily. Dx: Type 2 DM - Controlled E11.9 Insulin: No - Lancets lancets Test blood sugar(s) 1 times daily. 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] 10/16/2017 CAD (coronary artery disease) [I25.10] 10/16/2017 Hyperlipidemia, mixed [E78.2] 10/16/2017 ELKIN (obstructive sleep apnea) [G47.33] 10/16/2017 Hypertensive heart disease with heart failure (*10/16/2017 Hypomagnesemia [E83.42] 10/16/2017 Hyponatremia [E87.1] 10/16/2017 Chronic thoracic back pain [M54.6, G89.29] 01/29/2018 Risk for falls [Z91.81] 01/30/2018 03/07/2022 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] 10/08/2018 Bilateral carotid artery stenosis [I65.23] 11/06/2018 History of CVA in adulthood [Z86.73] 02/19/2019 Dysphagia [R13.10] 02/19/2019 Generalized weakness [R53.1] 12/06/2021 01/17/2022 Lumbar spinal stenosis [M48.061] 07/30/2022 Closed fracture of orbital floor (HCC) [S02.30X*11/07/2022 12/24/2023 Diagnosed: 11/07/2022 Closed head injury [S09.90XA] 11/07/2022 02/06/2023 Diagnosed: 11/07/2022 Fall [W19.XXXA] 11/07/2022 11/07/2022 Diagnosed: 11/07/2022 History of cardiovascular disorder (more content not included)... [facility] 03-25-2024 Note HNO ID: [id number] Author: LORAINE PATTERSON RN Service: ? Author Type: Registered Nurse Type: Progress Notes Filed: 03/25/2024 13:10 Note Text: CDM ENROLLMENT Provider Action / FYI: Patient identified by name and date of . Discussed care with patient. Program Details Chronic Disease Management Status: Enrolled Effective Dates: 03/25/2024 - present Responsible Staff: Loraine Patterson RN Support and Services: Hypertension, Diabetes Assessments CDM Assessment Medications: Do you have any questions about taking your medications or which medications you should be taking?: No Do you need any medication refills at this time, including any of the medication you might take only when needed?: No (Daughter in law handles medications) Social: It can be normal to feel anxious or down during a time like this. Would you like to talk to a mental health professional about how you have been feeling?: No Symptoms: Are you experiencing any new or worsening symptoms that you need to talk about today?: No ADLs Patients can perform the following activities without help: Dressing: Yes Bathing: Yes Doing laundry: No ([facility] [place]) Climbing a flight of stairs: No Walking briskly: No Instrumental activities of daily living Do you drive a car?: No Do you need help from others to take care of things inside the house, for example: laundry, house cleaning, preparing meals?: Yes Did you have the help you needed?: Yes (Assisted Living does laundry AND cooks AND cleaning lady comes on Saturday to clean) Do you need help from others with errands outside the house, for example: shopping for groceries or clothes, going medical appointments?: Yes Did you have the help you needed?: Yes (Son AND helps) Fall Risk One or more falls in the last year:: Yes (Several months ago - slid to floor getting out of chair - no injuries) Any near falls in the last year?: No Advised to use a cane or walker to get around safely:: Yes (Walker) Feels unsteady when walking:: No Steadies self on furniture while walking at home:: No Worried about falling:: Yes Needs to push with hands when rising from a chair:: Yes Has trouble stepping up onto a curb:: No (Not out much) Often has to mendez to the toilet:: Yes (Sometimes) Has lost some feeling in feet:: No Takes medicine that makes him/her feel lightheaded or more tired than usual:: Yes Takes medicine to sleep or improve mood:: Yes Fall risk factors:: Misc., Incontinence, Psychoactive medications/medications with anticholinergic effects SDOH Financial Resource Strain How hard is it for you to pay for the very basics like food, housing, medical care, and heating?: Not hard at all Housing Stability In the last 12 months, was there a time when you were not able to pay the mortgage or rent on time?: No In the past 12 months, how many times have you moved where you were living?: 0 At any time in the past 12 months, were you homeless or living in a correction (including now)?: No Transportation Needs In the past 12 months, has lack of transportation kept you from medical appointments or from getting medications?: No In the past 12 months, has lack of transportation kept you from meetings, work, or from getting things needed for daily living?: No Food Insecurity Within the past 12 months, you worried that your food would run out before you got the money to buy more.: Never true Within the past 12 months, the food you bought just didn't last and you didn't have money to get more.: Never true Tobacco Use Patient reports that she has never smoked. She has never used smokeless tobacco. Interventions The following were addressed during this visit: - Initial enrollment outreach - Intake assessments completed: ADLs, Fall Risk, SDOH - Biannual PCP visit addressed Disposition Based on news gathering technician, the following disposition is advised: No action needed (States [id number] is retired [employer] AND monitors her health AND medications) Loraine Patterson RN March 25, 2024 1:10 PM [facility] 03-25-2024 History of Present illness Narrative CDM ENROLLMENT Provider Action / FYI: Patient identified by name and date of . Discussed care with patient. Program Details Chronic Disease Management Status: Enrolled Effective Dates: 03/25/2024 - present Responsible Staff: Loraine Patterson, YOHANNES Support and Services: Hypertension, Diabetes Assessments CDM Assessment Medications: Do you have any questions about taking your medications or which medications you should be taking?: No Do you need any medication refills at this time, including any of the medication you might take only when needed?: No (Daughter in law handles medications) Social: It can be normal to feel anxious or down during a time like this. Would you like to talk to a mental health professional about how you have been feeling?: No Symptoms: Are you experiencing any new or worsening symptoms that you need to talk about today?: No ADLs Patients can perform the following activities without help: Dressing: Yes Bathing: Yes Doing laundry: No ([facility] [place]) Climbing a flight of stairs: No Walking briskly: No Instrumental activities of daily living Do you drive a car?: No Do you need help from others to take care of things inside the house, for example: laundry, house cleaning, preparing meals?: Yes Did you have the help you needed?: Yes (Assisted Living does laundry & cooks & cleaning lady comes on Saturday to clean) Do you need help from others with errands outside the house, for example: shopping for groceries or clothes, going medical appointments?: Yes Did you have the help you needed?: Yes (Son & helps) Fall Risk One or more falls in the last year:: Yes (Several months ago - slid to floor getting out of chair - no injuries) Any near falls in the last year?: No Advised to use a cane or walker to get around safely:: Yes (Walker) Feels unsteady when walking:: No Steadies self on furniture while walking at home:: No Worried about falling:: Yes Needs to push with hands when rising from a chair:: Yes Has trouble stepping up onto a curb:: No (Not out much) Often has to mendez to the toilet:: Yes (Sometimes) Has lost some feeling in feet:: No Takes medicine that makes him/her feel lightheaded or more tired than usual:: Yes Takes medicine to sleep or improve mood:: Yes Fall risk factors:: Misc., Incontinence, Psychoactive medications/medications with anticholinergic effects SDOH Financial Resource Strain How hard is it for you to pay for the very basics like food, housing, medical care, and heating?: Not hard at all Housing Stability In the last 12 months, was there a time when you were not able to pay the mortgage or rent on time?: No In the past 12 months, how many times have you moved where you were living?: 0 At any time in the past 12 months, were you homeless or living in a correction (including now)?: No Transportation Needs In the past 12 months, has lack of transportation kept you from medical appointments or from getting medications?: No In the past 12 months, has lack of transportation kept you from meetings, work, or from getting things needed for daily living?: No Food Insecurity Within the past 12 months, you worried that your food would run out before you got the money to buy more.: Never true Within the past 12 months, the food you bought just didn't last and you didn't have money to get more.: Never true Tobacco Use Patient reports that she has never smoked. She has never used smokeless tobacco. Interventions The following were addressed during this visit: - Initial enrollment outreach - Intake assessments completed: ADLs, Fall Risk, SDOH - Biannual PCP visit addressed Disposition Based on news gathering technician, the following disposition is advised: No action needed (States [id number] is retired [employer] & monitors her health & medications) Loraine Patterson RN March 25, 2024 1:10 PM documented in this encounter [facility] 03-25-2024 Note Patient Outreach [place] CYNDI MEJIA ([id number]) 1935 F Date Time Provider Department 03/25/24 LORAINE PATTERSON During your visit today, we recorded the following information about you: Loraine Patterson RN 03/25/2024 1:10 PM Signed CDM ENROLLMENT Provider Action / FYI: Patient identified by name and date of . Discussed care with patient. Program Details Chronic Disease Management Status: Enrolled Effective Dates: 03/25/2024 - present Responsible Staff: Loraine Patterson, YOHANNES Support and Services: Hypertension, Diabetes Assessments CDM Assessment Medications: Do you have any questions about taking your medications or which medications you should be taking?: No Do you need any medication refills at this time, including any of the medication you might take only when needed?: No (Daughter in law handles medications) Social: It can be normal to feel anxious or down during a time like this. Would you like to talk to a mental health professional about how you have been feeling?: No Symptoms: Are you experiencing any new or worsening symptoms that you need to talk about today?: No ADLs Patients can perform the following activities without help: Dressing: Yes Bathing: Yes Doing laundry: No ([facility]) Climbing a flight of stairs: No Walking briskly: No Instrumental activities of daily living Do you drive a car?: No Do you need help from others to take care of things inside the house, for example: laundry, house cleaning, preparing meals?: Yes Did you have the help you needed?: Yes (Assisted Living does laundry AND cooks AND cleaning lady comes on Saturday to clean) Do you need help from others with errands outside the house, for example: shopping for groceries or clothes, going medical appointments?: Yes Did you have the help you needed?: Yes (Son AND helps) Fall Risk One or more falls in the last year:: Yes (Several months ago - slid to floor getting out of chair - no injuries) Any near falls in the last year?: No Advised to use a cane or walker to get around safely:: Yes (Walker) Feels unsteady when walking:: No Steadies self on furniture while walking at home:: No Worried about falling:: Yes Needs to push with hands when rising from a chair:: Yes Has trouble stepping up onto a curb:: No (Not out much) Often has to mendez to the toilet:: Yes (Sometimes) Has lost some feeling in feet:: No Takes medicine that makes him/her feel lightheaded or more tired than usual:: Yes Takes medicine to sleep or improve mood:: Yes Fall risk factors:: Misc., Incontinence, Psychoactive medications/medications with anticholinergic effects SDOH Financial Resource Strain How hard is it for you to pay for the very basics like food, housing, medical care, and heating?: Not hard at all Housing Stability In the last 12 months, was there a time when you were not able to pay the mortgage or rent on time?: No In the past 12 months, how many times have you moved where you were living?: 0 At any time in the past 12 months, were you homeless or living in a correction (including now)?: No Transportation Needs In the past 12 months, has lack of transportation kept you from medical appointments or from getting medications?: No In the past 12 months, has lack of transportation kept you from meetings, work, or from getting things needed for daily living?: No Food Insecurity Within the past 12 months, you worried that your food would run out before you got the money to buy more.: Never true Within the past 12 months, the food you bought just didn't last and you didn't have money to get more.: Never true Tobacco Use Patient reports that she has never smoked. She has never used smokeless tobacco. Interventions The following were addressed during this visit: - Initial enrollment outreach - Intake assessments completed: ADLs, Fall Risk, SDOH - Biannual PCP visit addressed Disposition Based on news gathering technician, the following disposition is advised: No action needed (States [id number] is retired [employer] AND monitors her health AND medications) Loraine Patterson RN March 25, 2024 1:10 PM Allergies As of Date: 03/25/2024 Noted Allergy Reaction JANUVIA (SITAGLIPTIN) 10/14/2017 4 - Hives PENICILLIN 10/14/2017 4 - Hives Date Reviewed: 01/29/2024 Reviewed by: Em Aly MA - Fully Assessed Prescriptions as of 03/25/2024 - losartan (COZAAR) 25 mg tablet Take 1 tablet by mouth once daily. - nebivolol (BYSTOLIC) 5 mg tablet Take 1 tablet by mouth once daily. - HYDROcodone-acetaminophen (NORCO) 5-325 mg per tablet Take 1 tablet by mouth every 8 hours as needed for pain for up to 30 days. - traZODone (DESYREL) 50 mg tablet Take 1 tablet by mouth daily at bedtime. - loperamide HCl (IMODIUM) 2 mg tab Take 2 mg by mouth as need (more content not included)... [facility] 03-16-2024 Telephone encounter Note Prescription Refill Information The patient has been identified by name and date of : Yes Caregiver verified no other encounters exist for this prescription request: Yes Caregiver confirmed with patient/requestor that no other refills are due, in the near future, with this provider at this time: Yes The last office visit in the department: 01/29/2024 Does the patient have a future office visit with this provider/department: Yes Requested Prescriptions Pending Prescriptions Disp Refills losartan (COZAAR) 25 mg tablet 90 tablet 1 Sig: Take 1 tablet by mouth once daily. Estefani Lane LPN March 16, 2024 8:28 AM [facility] 03-16-2024 Miscellaneous Notes Prescription Refill Information The patient has been identified by name and date of : Yes Caregiver verified no other encounters exist for this prescription request: Yes Caregiver confirmed with patient/requestor that no other refills are due, in the near future, with this provider at this time: Yes The last office visit in the department: 01/29/2024 Does the patient have a future office visit with this provider/department: Yes Requested Prescriptions Pending Prescriptions Disp Refills losartan (COZAAR) 25 mg tablet 90 tablet 1 Sig: Take 1 tablet by mouth once daily. Estefani Lane LPN March 16, 2024 8:28 AM documented in this encounter [facility] 02-27-2024 Telephone encounter Note Prescription Refill Information The patient has been identified by name and date of : Yes Caregiver verified no other encounters exist for this prescription request: Yes Caregiver confirmed with patient/requestor that no other refills are due, in the near future, with this provider at this time: Yes The last office visit in the department: 01/29/24 Does the patient have a future office visit with this provider/department: Yes Requested Prescriptions Pending Prescriptions Disp Refills nebivolol (BYSTOLIC) 5 mg tablet 90 tablet 3 Sig: Take 1 tablet by mouth once daily. Macy Badillo LPN February 27, 2024 1:54 PM [facility] 02-27-2024 Miscellaneous Notes Prescription Refill Information The patient has been identified by name and date of : Yes Caregiver verified no other encounters exist for this prescription request: Yes Caregiver confirmed with patient/requestor that no other refills are due, in the near future, with this provider at this time: Yes The last office visit in the department: 01/29/24 Does the patient have a future office visit with this provider/department: Yes Requested Prescriptions Pending Prescriptions Disp Refills nebivolol (BYSTOLIC) 5 mg tablet 90 tablet 3 Sig: Take 1 tablet by mouth once daily. Macy Badillo LPN February 27, 2024 1:54 PM documented in this encounter [facility] 02-27-2024 Note [facility] Medical Records Department [address] [place] [id number] History Physical Exam 02/27/24 0700 MR#: [id number] Acct: [id number] Name: CYNDI MEJIA Rep #: [id number] : 1935 89 From: Lg Kirkland DO PCP: Dr. Shaquille Benjamin MD Status:[facility] Location: [place] [address] HPI - General General Date of Admission: 02/27/24 Date of Service: 02/27/24 Chief Complaint: dysphagia HPI Narrative CYNDI MEJIA, is a 88 F who presents to the office today for f/u. [facility] established 8.31.22 Accompanied by KATHY Horta. Recently coughed up a hotdog that she had eaten a day or two prior. Abnormal esophagram last month--concentric narrowing at distal esophagus at [facility]; barium tablet trapped at [facility]. Hx of esophageal stenosis requiring dilation. Last EGD [address] Gonzalez at [facility]. Lots of foam then; acid has decreased with less caffeine after that. She takes pantoprazole 20 mg BID, she has taken this for years. Also Hx Zenker's diverticulum, large abscess once, surgery x 2. She c/o soreness on the left side of neck where she had the abscess, started a month ago. EGD 11.01.21- The nasopharynx and oropharynx are abnormal. - Benign-appearing esophageal stenosis. Dilated. - Small hiatal hernia. - Normal second portion of the duodenum. Biopsied. OV 02.07.24 Pt has started to have issues with swallowing again. She will regurgitate with every meal although she does not feel like it is stuck. This is very similar to the symptoms she was having prior to last EGD. SHe felt much better and was able to eat without regurgitation. She has diarrhea every couple weeks and takes imodium as needed.She denies heartburn, n/v, abd pain, constiapation or blood in her stool. [facility] Medical History Wears dentures Wears glasses Post-menopausal Depression Diabetes Thyroid disease Walker as ambulation aid Arthritis Anemia High cholesterol Back pain Injury of back Difficulty swallowing History of hiatal hernia Gastric reflux Non-smoker History of pain when walking History of stress test History of echocardiogram Cardiology follow-up encounter Zenkers diverticulum Polyneuropathy Hemorrhoids GERD (gastroesophageal reflux disease) Diverticulitis Diabetic retinopathy Esophageal stenosis Tachy-ivan syndrome History of patent ductus arteriosus Sleep apnea SSS (sick sinus syndrome) Pure hypercholesterolemia Type 2 diabetes mellitus Congestive heart failure 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 Essential hypertension Home Medications ???Medication ???Instructions ???Recorded ???Last Taken ???Type losartan 25 mg tablet 25 mg PO DAILY 10/08/18 10/31/21 History trazodone 50 mg tablet 50 mg PO QHS 10/08/18 10/31/21 History atorvastatin 20 mg tablet 20 mg PO DAILY #90 tabs 10/09/18 11/01/21 Rx coenzyme Q10 200 mg capsule (Co 200 mg PO DAILY 04/13/19 10/31/21 History Q-10) hydrocodone 7.5 mg-acetaminophen 1 tab PO DAILY Pain 04/13/19 Unknown History 325 mg tablet ([place]) levothyroxine 25 mcg tablet 25 mcg PO DAILY 11/20/19 11/01/21 History citalopram 20 mg tablet 20 mg PO DAILY 09/28/21 10/31/21 History metformin 500 mg tablet 500 mg PO DAILY 03/07/23 Unknown History pantoprazole 40 mg tablet,delayed 40 mg PO BID #60 tabs 02/07/24 Unknown Rx release acetaminophen 500 mg tablet 1,000 mg PO Q6H 02/24/24 Unknown History (Acetaminophen Extra Strength) nebivolol 5 mg tablet 5 mg PO DAILY 02/24/24 Unknown History Allergy/AdvReac Type Severity Reaction Status Date / Time sitagliptin (From ) Allergy Severe Swelling Verified 02/27/24 05:50 face and legs Penicillins Allergy Unknown Unknown Verified 02/27/24 05:50 Family History Mother Diabetes Hypertension CVA (cerebral vascular accident) Brother CVA (cerebral vascular accident) Diabetes Hypertension Surgical History History of throat surgery History of appendectomy Status post aorta repair ( 2008) History of coronary artery bypass surgery ( 09/2015) Social History Smoking Status: Never smoker alcohol intake: current details: Rare substance use type: does not use caffeine: Yes Type: carbonated beverages and coffee Number of servings: 3 ROS Constitutional Constitutional: Denies fatigue, fever(s), poor appetite, weight gain or weight loss Gastrointestinal Gastrointestinal: Denies belching, bloating, change in bowel habits, change in stool character, chewing difficulty, coffee ground emesis, constipation, cramping, diarrhea, dyspepsia, dysphagia, early satiety, excessive flatus, fecal incon (more content not included)... [facility] 01-29-2024 Note HNO ID: [id number] Author: SHAQUILLE BENJAMIN MD Service: ? Author Type: Physician Type: Progress Notes Filed: 01/29/2024 15:33 Note Text: Patient presents with: Follow Up HPI: Patient presents today for office visit for follow up. Here today with daughter- in-law Madelaine. Ambulating in wheelchair. No recent falls. Complains of right knee pain today. Off and on for a long time. HTN: Monitors BP occ Denies chest pain and shortness of breath Occ mild headaches No dizziness Denies palpitations and syncope No edema I asked Madelaine to check her bp log at facility and let me kno. Monitors BS at home. This a.m was 128 HLD: Continues Atorvastatin Sleeping well most of the time. Sleeps through the night. Continues taking trazodone Has an appetite but chokes on her food. Has had a 8 lb weight loss. Daughter Madelaine thinking patient needs her esophagus stretched again. Last dilation was 10/2022 Seeing GI next week Having increasing pain over her left back. Offered xray. Declines getting onto the table. No radicular changes. Continues on norco. It does help most of the time. When she sits in wheelchair it is worse. Madelaine is setting up her pills and using norco once a day. 7.5 may need decreased to 5 mg due to cost. She uses tylenol prn. Most days we are comfortable. Oarrs done. Due for new controlled substance agreement. Still doing therapy. Has seen podiatry since last ov. She is not using her mag frequently. Latest Ref Rng 09/25/2023 WBC 3.70 - 11.00 k/uL 6.46 RBC 3.90 - 5.20 m/uL 4.21 Hemoglobin 11.5 - 15.5 g/dL 10.4 (L) Hematocrit 36.0 - 46.0 % 33.7 (L) MCV 80.0 - 100.0 fL 80.0 MCH 26.0 - 34.0 pg 24.7 (L) MCHC 30.5 - 36.0 g/dL 30.9 RDW-CV 11.5 - 15.0 % 16.1 (H) Platelet Count 150 - 400 k/uL 208 MPV 9.0 - 12.7 fL 9.5 Neut% % 72.3 Abs Neut (ANC) 1.45 - 7.50 k/uL 4.68 Lymph% % 16.9 Abs Lymph 1.00 - 4.00 k/uL 1.09 Bee% % 7.3 Abs Bee <0.87 k/uL 0.47 Eosin% % 2.5 Abs Eosin <0.46 k/uL 0.16 Baso% % 0.5 Abs Baso <0.11 k/uL 0.03 Immature Gran % % 0.5 IMMATURE GRANS (ABS) <0.10 k/uL 0.03 NRBC /100 WBC 0.0 Absolute nRBC <0.01 k/uL <0.01 DTYPE Auto Glucose 74 - 99 mg/dL 151 (H) BUN 7 - 21 mg/dL 17 Creatinine 0.58 - 0.96 mg/dL 0.86 Sodium 136 - 144 mmol/L 133 (L) Potassium 3.7 - 5.1 mmol/L 4.2 Chloride 98 - 107 mmol/L 97 (L) CO2 22 - 30 mmol/L 26 Anion Gap 8 - 15 mmol/L 10 Calcium 8.5 - 10.2 mg/dL 9.4 eGFR >=60 mL/min/1.73m? 65 Phencyclidine Negative Negative Benzodiazepines Urine Negative Negative Cocaine Urine Negative Negative Amphetamines Negative Negative Cannabinoids, Urine Negative Negative Opiates Negative Preliminary positive ! Barbiturates Negative Negative Ethanol, Urine <11 mg/dL <11 Oxycodone, Urine Negative Negative Creatinine, Ur Random (UCRR) 20.0 - 300.0 mg/dL 91.2 Albumin, Urine Random mg/L 30.2 Albumin/Creat Ratio <30 mg/g 33 (H) Iron 41 - 186 ug/dL 45 TIBC 232 - 386 ug/dL 427 (H) Transferrin Saturation 15.0 - 57.0 % 10.5 (L) Hemoglobin A1C 4.3 - 5.6 % 6.7 (H) Estimated Average Glucose mg/dL 146 Magnesium 1.7 - 2.3 mg/dL 1.2 (L) Ferritin 14.7 - 205.1 ng/mL 23.6 Vitamin B12 232 - 1,245 pg/mL 366 Legend: (L) Low (H) High ! Abnormal Note was copied and pasted, without alteration from last check up.: Has not done as well since having to move to a [place] apartment. Not as happy. Upset with lack of privacy. Feels "lousy" in general. Diabetes: Checking glucose once daily. HTN: Patient is compliant with meds Yes Monitors bp at home: Yes. Denies side effects: Yes. Chest pain: No. Dyspnea: No. Edema: No. Palpitations: No. Syncope: No. Headache: No. Dizziness: No. Has had a few gagging and choking episodes at the table. So has not gone as much to dinner. Had an appt done in Jan by Dr Kirkland. Declines repeat evaluation. Had been eating chocolate and coffee again. Discussed limiting caffeine. Protonix is back at bid. Not taking mag No falls. Using a lactose free milk and watching diet. Does have occasional loose stools. Pain is ok most of the time. Has been on for some time chronically Helps with ADLs Has some joint pain. MEDICATIONS: Current Outpatient Medications Medication Sig HYDROcodone-Acetaminophen (NORCO) 7.5-325 mg per tablet Take 1 tablet by mouth every 8 hours as needed for pain for up to 30 days. traZODone (DESYREL) 50 mg tablet Take 1 tablet by mouth daily at bedtime. loperamide HCl (IMODIUM) 2 mg tab Take 2 mg by mouth as needed. citalopram (CELEXA) 20 mg tablet Take 1 tablet by mouth once daily. metFORMIN ER (GLUCOPHAGE XR) 500 mg 24 hr tablet Take 1 tablet by mouth daily with breakfast. levothyroxine (SYNTHROID) 25 mcg tablet Take 1 tablet by mouth once daily. Take on empty stomach. For thyroid. losartan (COZAAR) 25 mg tablet Take 1 tablet by mouth once daily. pantoprazole DR (PROTONIX) 20 mg tablet Take 1 tablet by mout (more content not included)... [facility] 01-29-2024 History of Present illness Narrative Patient presents with: Follow Up HPI: Patient presents today for office visit for follow up. Here today with daughter- in-law Madelaine. Ambulating in wheelchair. No recent falls. Complains of right knee pain today. Off and on for a long time. HTN: Monitors BP occ Denies chest pain and shortness of breath Occ mild headaches No dizziness Denies palpitations and syncope No edema I asked Madelaine to check her bp log at facility and let me kno. Monitors BS at home. This a.m was 128 HLD: Continues Atorvastatin Sleeping well most of the time. Sleeps through the night. Continues taking trazodone Has an appetite but chokes on her food. Has had a 8 lb weight loss. Daughter Madelaine thinking patient needs her esophagus stretched again. Last dilation was 10/2022 Seeing GI next week Having increasing pain over her left back. Offered xray. Declines getting onto the table. No radicular changes. Continues on norco. It does help most of the time. When she sits in wheelchair it is worse. Madelaine is setting up her pills and using norco once a day. 7.5 may need decreased to 5 mg due to cost. She uses tylenol prn. Most days we are comfortable. Oarrs done. Due for new controlled substance agreement. Still doing therapy. Has seen podiatry since last ov. She is not using her mag frequently. Latest Ref Rng 09/25/2023 WBC 3.70 - 11.00 k/uL 6.46 RBC 3.90 - 5.20 m/uL 4.21 Hemoglobin 11.5 - 15.5 g/dL 10.4 (L) Hematocrit 36.0 - 46.0 % 33.7 (L) MCV 80.0 - 100.0 fL 80.0 MCH 26.0 - 34.0 pg 24.7 (L) MCHC 30.5 - 36.0 g/dL 30.9 RDW-CV 11.5 - 15.0 % 16.1 (H) Platelet Count 150 - 400 k/uL 208 MPV 9.0 - 12.7 fL 9.5 Neut% % 72.3 Abs Neut (ANC) 1.45 - 7.50 k/uL 4.68 Lymph% % 16.9 Abs Lymph 1.00 - 4.00 k/uL 1.09 Bee% % 7.3 Abs Bee <0.87 k/uL 0.47 Eosin% % 2.5 Abs Eosin <0.46 k/uL 0.16 Baso% % 0.5 Abs Baso <0.11 k/uL 0.03 Immature Gran % % 0.5 IMMATURE GRANS (ABS) <0.10 k/uL 0.03 NRBC /100 WBC 0.0 Absolute nRBC <0.01 k/uL <0.01 DTYPE Auto Glucose 74 - 99 mg/dL 151 (H) BUN 7 - 21 mg/dL 17 Creatinine 0.58 - 0.96 mg/dL 0.86 Sodium 136 - 144 mmol/L 133 (L) Potassium 3.7 - 5.1 mmol/L 4.2 Chloride 98 - 107 mmol/L 97 (L) CO2 22 - 30 mmol/L 26 Anion Gap 8 - 15 mmol/L 10 Calcium 8.5 - 10.2 mg/dL 9.4 eGFR >=60 mL/min/1.73m 65 Phencyclidine Negative Negative Benzodiazepines Urine Negative Negative Cocaine Urine Negative Negative Amphetamines Negative Negative Cannabinoids, Urine Negative Negative Opiates Negative Preliminary positive ! Barbiturates Negative Negative Ethanol, Urine <11 mg/dL <11 Oxycodone, Urine Negative Negative Creatinine, Ur Random (UCRR) 20.0 - 300.0 mg/dL 91.2 Albumin, Urine Random mg/L 30.2 Albumin/Creat Ratio <30 mg/g 33 (H) Iron 41 - 186 ug/dL 45 TIBC 232 - 386 ug/dL 427 (H) Transferrin Saturation 15.0 - 57.0 % 10.5 (L) Hemoglobin A1C 4.3 - 5.6 % 6.7 (H) Estimated Average Glucose mg/dL 146 Magnesium 1.7 - 2.3 mg/dL 1.2 (L) Ferritin 14.7 - 205.1 ng/mL 23.6 Vitamin B12 232 - 1,245 pg/mL 366 Legend: (L) Low (H) High ! Abnormal Note was copied and pasted, without alteration from last check up.: Has not done as well since having to move to a studio apartment. Not as happy. Upset with lack of privacy. Feels "lousy" in general. Diabetes: Checking glucose once daily. HTN: Patient is compliant with meds Yes Monitors bp at home: Yes. Denies side effects: Yes. Chest pain: No. Dyspnea: No. Edema: No. Palpitations: No. Syncope: No. Headache: No. Dizziness: No. Has had a few gagging and choking episodes at the table. So has not gone as much to dinner. Had an appt done in Jan by Dr Kirkland. Declines repeat evaluation. Had been eating chocolate and coffee again. Discussed limiting caffeine. Protonix is back at bid. Not taking mag No falls. Using a lactose free milk and watching diet. Does have occasional loose stools. Pain is ok most of the time. Has been on for some time chronically Helps with ADLs Has some joint pain. MEDICATIONS: Current Outpatient Medications Medication Sig HYDROcodone-Acetaminophen (NORCO) 7.5-325 mg per tablet Take 1 tablet by mouth every 8 hours as needed for pain for up to 30 days. traZODone (DESYREL) 50 mg tablet Take 1 tablet by mouth daily at bedtime. loperamide HCl (IMODIUM) 2 mg tab Take 2 mg by mouth as needed. citalopram (CELEXA) 20 mg tablet Take 1 tablet by mouth once daily. metFORMIN ER (GLUCOPHAGE XR) 500 mg 24 hr tablet Take 1 tablet by mouth daily with breakfast. levothyroxine (SYNTHROID) 25 mcg tablet Take 1 tablet by mouth once daily. Take on empty stomach. For thyroid. losartan (COZAAR) 25 mg tablet Take 1 tablet by mouth once daily. pantoprazole DR (PROTONIX) 20 mg tablet Take 1 tablet by mouth two times a day. atorvastatin (LIPITOR) 20 mg tablet Take 1 tablet by mouth once daily. nebivolol (BYSTOLIC) 5 mg tablet Take 1 tablet by mouth once daily. blood sugar diagnostic (BLOOD GLUCOSE TEST) test strip Test blood sugar(s) 1 times daily. Dx: Type 2 DM - Controlled E11.9 Insulin: No Lancets lancets Test blood sugar(s) 1 times daily. Dx: Type 2 DM - E11.8 Insulin: No No current facility-administered medications for this visit. 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 Social History Tobacco Use Smoking status: Never Smokeless tobacco: Never Vaping Use Vaping status: Never Used Substance Use Topics Alcohol use: Yes Comment: occasionally Drug use: No Reviewed current medications, allergies, past medical history, surgical history, family history and social history today. REVIEW OF SYSTEMS All other reviewed and negative other than HPI. HEALTH MAINTENANCE: Reviewed health maintenance issues today and recommended the following in detail. Covid-19 Vaccine( season) due on 10/27/2023 VITALS: BP 98/52 Pulse 84 Ht 170.2 cm (5' 7") Wt 72 kg (158 lb 12.8 oz) SpO2 96% BMI 24.87 kg/m Last 4 Encounter Wt Readings: Date: Wt: 09/20/2023 75.3 kg (166 lb) 05/21/2023 77.6 kg (171 lb) 02/06/2023 74.8 kg (165 lb) 11/07/2022 73.5 kg (162 lb) PHYSICAL EXAMINATION: General appearance: Well appearing, alert, i well-hydrated, well nourished. Lungs: Lungs clear to auscultation. No wheezing, rhonchi, rales Heart: RRR without murmur, gallop, or rubs. No ectopy Abdomen: Normal abdominal exam, Abdomen soft, non-tender. Bowel sounds normal. No masses, organomegaly Extremities: No deformities, edema, skin discoloration, clubbing or cyanosis. Good capillary refill. Musculoskeletal: No joint swelling, deformity, or tenderness Peripheral pulses: Normal Neuro: Negative. ASSESSMENT/PLAN: 1. Essential hypertension - ICD9: 401.9, ICD10: I10 (primary diagnosis) - tight control. Family will let us know how bp has been at facility. - MAGNESIUM - COMPLETE BLOOD COUNT AND DIFFERENTIAL - COMPREHENSIVE METABOLIC PANEL - LIPID PANEL BASIC - MAGNESIUM 2. 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 3. Hyperlipidemia, mixed - ICD9: 272.2, ICD10: E78.2 - Controlled - Continue current medications - COMPLETE BLOOD COUNT AND DIFFERENTIAL - COMPREHENSIVE METABOLIC PANEL - LIPID PANEL BASIC 4. Tachycardia-bradycardia (HCC) - ICD9: 427.81, ICD10: I49.5 - stable. 5. ELKIN (obstructive sleep apnea) - ICD9: 327.23, ICD10: G47.33 - stable. 6. Zenker diverticulum - ICD9: 530.6, ICD10: K22.5 - seeing gi 7. Vitamin B12 deficiency - ICD9: 266.2, ICD10: E53.8 - VITAMIN B12 8. GERD without esophagitis - ICD9: 530.81, ICD10: K21.9 - continue meds. 9. Hypomagnesemia - ICD9: 275.2, ICD10: E83.42 - check labs. 10. Type 2 diabetes mellitus with complication, without long-term current use of insulin (HCC) - ICD9: 250.90, ICD10: E11.8 - Controlled - Continue current medications - HEMOGLOBIN A1C 11. Subclinical hypothyroidism - ICD9: 244.8, ICD10: E03.8 - THYROID STIMULATING HORMONE 12. Anemia due to other cause, not classified - ICD9: 285.8, ICD10: D64.89 - stable. 13. Chronic thoracic back pain, unspecified back pain laterality - ICD9: 724.1, 338.29, ICD10: M54.6, G89.29 - continue meds. Are indicated. Aware of risks and benefits. Helps her function and meet adls. 14. Primary osteoarthritis of both knees - ICD9: 715.16, ICD10: M17.0 -as above. 15. Spinal stenosis of lumbar region, unspecified whether neurogenic claudication present - ICD9: 724.02, ICD10: M48.061 - as above. 16. Major depressive disorder, recurrent, in partial remission (HCC) - ICD9: 296.35, ICD10: F33.41 - stable. 17. Hyponatremia - ICD9: 276.1, ICD10: E87.1 - follow labs. 18. Bilateral carotid artery stenosis - ICD9: 433.10, 433.30, ICD10: I65.23 - recheck at some point. Shaquille Benjamin MD documented in this encounter [facility] 12-30-2023 Telephone encounter Note Shalini with [facility] calls to request copy of PT order and notes from visit on 12/24/2023. Faxed per request to [phone] Shawn Dalton RN [facility] 12-30-2023 Miscellaneous Notes Shalini with [facility] calls to request copy of PT order and notes from visit on 12/24/2023. Faxed per request to [phone] Shawn Dalton RN documented in this encounter [facility] 12-24-2023 History of Present illness Narrative Patient presents with: Acute Visit: Weakness. ? Physical therapy HPI:This visit is a virtual encounter. It required patient-provider interaction for the medical decision making as documented below. Patient has elected to have a visit through distance medicine I have communicated my name and active licensure. The patient's identity and physical location were verified at the time of this visit. Either the patient or their legal guest service representative has been informed of the risks and benefits of -- and alternatives to -- treatment through a remote evaluation and consents to proceed with the evaluation remotely. Needs face to face for in home physical therapy. Had a mechanical fall. No major issues. Her back was even bothering her a little before that. Had some steroids for her back from urgent care. Has been having to use more norco for pain control. We have added celebrex at low dose with food. Will need more norco soon. Pain in her lower back is her main pain location No numbness or focal leg weakness. Is worried about walking by herself. She now has a lfit chair as well. [facility] has felt she would benefit from in home therapy. Declines xray of her lower back. Will need another norco sent over. Understands risks and benefits. Family is monitoring pills. Is benefiting its use. Oarrs done. Note was copied and pasted, without alteration from:recent my chart note from daughter in law: Cyndi fell last week, said her legs just gave out and she fell onto her bottom. Is now walking with and aide. She says she is weak. From what Aneudy and I assess, she is no different than how she has been and this is just a natural progression and being deconditioned. She does nothing but sit in her chair. I have scheduled a virtual visit for a face to face for a PT order that was suggested by staff at [facility]. MEDICATIONS: Current Outpatient Medications Medication Sig celecoxib (CELEBREX) 100 mg capsule Take 1 capsule by mouth once daily. Prn with food traZODone (DESYREL) 50 mg tablet Take 1 tablet by mouth daily at bedtime. loperamide HCl (IMODIUM) 2 mg tab Take 2 mg by mouth as needed. magnesium oxide 400 mg magnesium tab Take by mouth. magnesium hydroxide (MILK OF MAGNESIA) 400 mg/5 mL suspension Take by mouth once daily as needed. predniSONE (DELTASONE) 20 mg tablet One tab by mouth daily for 5 days. citalopram (CELEXA) 20 mg tablet Take 1 tablet by mouth once daily. metFORMIN ER (GLUCOPHAGE XR) 500 mg 24 hr tablet Take 1 tablet by mouth daily with breakfast. HYDROcodone-Acetaminophen (NORCO) 7.5-325 mg per tablet Take 1 tablet by mouth every 8 hours as needed for pain for up to 30 days. levothyroxine (SYNTHROID) 25 mcg tablet Take 1 tablet by mouth once daily. Take on empty stomach. For thyroid. Magnesium Glycinate (MAG GLYCINATE) 100 mg tab Take 1 tablet by mouth once daily. losartan (COZAAR) 25 mg tablet Take 1 tablet by mouth once daily. pantoprazole DR (PROTONIX) 20 mg tablet Take 1 tablet by mouth two times a day. atorvastatin (LIPITOR) 20 mg tablet Take 1 tablet by mouth once daily. nebivolol (BYSTOLIC) 5 mg tablet Take 1 tablet by mouth once daily. blood sugar diagnostic (BLOOD GLUCOSE TEST) test strip Test blood sugar(s) 1 times daily. Dx: Type 2 DM - Controlled E11.9 Insulin: No BABY ASPIRIN ORAL Take 81 mg by mouth once daily. (Patient not taking: Reported on 12/05/2023) Lancets lancets Test blood sugar(s) 1 times daily. Dx: Type 2 DM - E11.8 Insulin: No cyanocobalamin (VITAMIN B-12) 1,000 mcg tab Take 1,000 mcg by mouth once daily. (Patient not taking: Reported on 12/05/2023) ubidecarenone Q-10 (COENZYME Q-10) 10 mg cap Take 50 mg by mouth twice daily. (Patient not taking: Reported on 12/05/2023) Cholecalciferol, Vitamin D3, 50 mcg (2,000 unit) cap Take by mouth. (Patient not taking: Reported on 12/05/2023) No current facility-administered medications for this visit. 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 Social History Tobacco Use Smoking status: Never Smokeless tobacco: Never Vaping Use Vaping status: Never Used Substance Use Topics Alcohol use: Yes Comment: occasionally Drug use: No Reviewed current medications, allergies, past medical history, surgical history, family history and social history today. REVIEW OF SYSTEMS All other reviewed and negative other than HPI. VITALS: Could not assess Last 4 Encounter Wt Readings: Date: Wt: 09/20/2023 75.3 kg (166 lb) 05/21/2023 77.6 kg (171 lb) 02/06/2023 74.8 kg (165 lb) 11/07/2022 73.5 kg (162 lb) PHYSICAL EXAMINATION: Patient is alert and oriented during visit. Answers appropriately. Breathing comfortably.. chest rise normal. No audible wheeze. No pallor. ASSESSMENT/PLAN: 1. Gait disturbance - ICD9: 781.2, ICD10: R26.9 (primary diagnosis) Leaving facility is too taxing. Requires in home phsyical therapy. Use norco bid until pain is controlled and hold on celbrex since not helping. Keep next aptp. - CONSULT TO PHYSICAL THERAPY 2. Major depressive disorder, recurrent, in partial remission (HCC) - ICD9: 296.35, ICD10: F33.41 - continue meds. 3. 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 Anxiety with depression - ICD9: 300.4, ICD10: F41.8 As above 5. Spinal stenosis of lumbar region, unspecified whether neurogenic claudication present - ICD9: 724.02, ICD10: M48.061 - CONSULT TO PHYSICAL THERAPY 6. Chronic thoracic back pain, unspecified back pain laterality - ICD9: 724.1, 338.29, ICD10: M54.6, G89.29 - CONSULT TO PHYSICAL THERAPY 7. Acute midline thoracic back pain - ICD9: 724.1, ICD10: M54.6 - HYDROCODONE 7.5 MG-ACETAMINOPHEN 325 MG TABLET 8. Osteoarthritis of both knees, unspecified osteoarthritis type - ICD9: 715.96, ICD10: M17.0 - refill meds. Use is benefiting patient. - HYDROCODONE 7.5 MG-ACETAMINOPHEN 325 MG TABLET Shaquille Benjamin MD I spent 20 minutes in the visit, with more than 50% of the total [id number] time of the visit in counseling / coordination of care. documented in this encounter [facility] 12-24-2023 Note HNO ID: [id number] Author: SHAQUILLE BENJAMIN MD Service: ? Author Type: Physician Type: Progress Notes Filed: 12/24/2023 11:15 Note Text: Patient presents with: Acute Visit: Weakness. ? Physical therapy HPI:This visit is a virtual encounter. It required patient-provider interaction for the medical decision making as documented below. Patient has elected to have a visit through distance medicine I have communicated my name and active licensure. The patient's identity and physical location were verified at the time of this visit. Either the patient or their legal guest service representative has been informed of the risks and benefits of -- and alternatives to -- treatment through a remote evaluation and consents to proceed with the evaluation remotely. Needs face to face for in home physical therapy. Had a mechanical fall. No major issues. Her back was even bothering her a little before that. Had some steroids for her back from urgent care. Has been having to use more norco for pain control. We have added celebrex at low dose with food. Will need more norco soon. Pain in her lower back is her main pain location No numbness or focal leg weakness. Is worried about walking by herself. She now has a [employer] chair as well. [facility] has felt she would benefit from in home therapy. Declines xray of her lower back. Will need another norco sent over. Understands risks and benefits. Family is monitoring pills. Is benefiting its use. Oarrs done. Note was copied and pasted, without alteration from:recent my chart note from daughter in law: Cyndi fell last week, said her legs just gave out and she fell onto her bottom. Is now walking with and aide. She says she is weak. From what Aneudy and I assess, she is no different than how she has been and this is just a natural progression and being deconditioned. She does nothing but sit in her chair. I have scheduled a virtual visit for a face to face for a PT order that was suggested by staff at [facility]. MEDICATIONS: Current Outpatient Medications Medication Sig celecoxib (CELEBREX) 100 mg capsule Take 1 capsule by mouth once daily. Prn with food traZODone (DESYREL) 50 mg tablet Take 1 tablet by mouth daily at bedtime. loperamide HCl (IMODIUM) 2 mg tab Take 2 mg by mouth as needed. magnesium oxide 400 mg magnesium tab Take by mouth. magnesium hydroxide (MILK OF MAGNESIA) 400 mg/5 mL suspension Take by mouth once daily as needed. predniSONE (DELTASONE) 20 mg tablet One tab by mouth daily for 5 days. citalopram (CELEXA) 20 mg tablet Take 1 tablet by mouth once daily. metFORMIN ER (GLUCOPHAGE XR) 500 mg 24 hr tablet Take 1 tablet by mouth daily with breakfast. HYDROcodone-Acetaminophen (NORCO) 7.5-325 mg per tablet Take 1 tablet by mouth every 8 hours as needed for pain for up to 30 days. levothyroxine (SYNTHROID) 25 mcg tablet Take 1 tablet by mouth once daily. Take on empty stomach. For thyroid. Magnesium Glycinate (MAG GLYCINATE) 100 mg tab Take 1 tablet by mouth once daily. losartan (COZAAR) 25 mg tablet Take 1 tablet by mouth once daily. pantoprazole DR (PROTONIX) 20 mg tablet Take 1 tablet by mouth two times a day. atorvastatin (LIPITOR) 20 mg tablet Take 1 tablet by mouth once daily. nebivolol (BYSTOLIC) 5 mg tablet Take 1 tablet by mouth once daily. blood sugar diagnostic (BLOOD GLUCOSE TEST) test strip Test blood sugar(s) 1 times daily. Dx: Type 2 DM - Controlled E11.9 Insulin: No BABY ASPIRIN ORAL Take 81 mg by mouth once daily. (Patient not taking: Reported on 12/05/2023) Lancets lancets Test blood sugar(s) 1 times daily. Dx: Type 2 DM - E11.8 Insulin: No cyanocobalamin (VITAMIN B-12) 1,000 mcg tab Take 1,000 mcg by mouth once daily. (Patient not taking: Reported on 12/05/2023) ubidecarenone Q-10 (COENZYME Q-10) 10 mg cap Take 50 mg by mouth twice daily. (Patient not taking: Reported on 12/05/2023) Cholecalciferol, Vitamin D3, 50 mcg (2,000 unit) cap Take by mouth. (Patient not taking: Reported on 12/05/2023) No current facility-administered medications for this visit. 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 [facility] 12-05-2023 Note HNO ID: [id number] Author: JACOB MORRIS APRN.[employer] Service: ? Author Type: Nurse Practitioner Type: Progress Notes Filed: 12/05/2023 13:25 Note Text: This note was created using [employer] (Chapter 11)riter. Subjective Cyndi Mejia is a 88 year old female. HPI Patient presents today stating that she needs a cortisone shot for her acute on chronic left lower back pain that goes into her left hip. She states that whenever she has these flareups she gets a cortisone shot and the pain is resolved. She has not had any injections locally as she has recently moved here from out of town. She otherwise denies any recent strain or trauma. Denies any change in bowel or bladder habits. Denies any loss of sensation in her extremities. She is currently taking [place] for pain. Review of Systems As noted in HPI Objective BP 147/72 Pulse 87 Temp 36.2 ?C (97.2 ?F) Resp 18 SpO2 98% Physical Exam Vitals and nursing note reviewed. Constitutional: General: She is not in acute distress. Appearance: Normal appearance. She is not ill-appearing. HENT: Head: Normocephalic. Pulmonary: Effort: Pulmonary effort is normal. Musculoskeletal: Cervical back: Normal range of motion. Comments: Tenderness over the left lateral lower back sparing the vertebral vertebrae. Skin: General: Skin is warm and dry. Neurological: General: No focal deficit present. Mental Status: She is alert. Comments: Full sensation and movement to bilateral lower extremities Psychiatric: Mood and Affect: Mood normal. Behavior: Behavior normal. Assessment and Plan ASSESSMENT/PLAN: 1. Strain of lumbar region, initial encounter - ICD9: 847.2, ICD10: S39.012A Patient's presentation appears consistent with acute on chronic left lower back pain. I discussed with her that we did not have the ability to do a cortisone injection but we could do a 5-day prednisone burst. Patient is type II diabetic and as such she will be placed on a 20 mg daily dose. She is to otherwise continue with her prescribed pain medications, slowly resume activities as tolerated, and return for any new or worsening concerns. - PREDNISONE 20 MG TABLET Jacob Morris APRN.[facility] 12-05-2023 History of Present illness Narrative This note was created using [employer] (Chapter 11)riter. Subjective Cyndi Mejia is a 88 year old female. HPI Patient presents today stating that she needs a cortisone shot for her acute on chronic left lower back pain that goes into her left hip. She states that whenever she has these flareups she gets a cortisone shot and the pain is resolved. She has not had any injections locally as she has recently moved here from out of town. She otherwise denies any recent strain or trauma. Denies any change in bowel or bladder habits. Denies any loss of sensation in her extremities. She is currently taking [place] for pain. Review of Systems As noted in HPI Objective BP 147/72 Pulse 87 Temp 36.2 C (97.2 F) Resp 18 SpO2 98% Physical Exam Vitals and nursing note reviewed. Constitutional: General: She is not in acute distress. Appearance: Normal appearance. She is not ill-appearing. HENT: Head: Normocephalic. Pulmonary: Effort: Pulmonary effort is normal. Musculoskeletal: Cervical back: Normal range of motion. Comments: Tenderness over the left lateral lower back sparing the vertebral vertebrae. Skin: General: Skin is warm and dry. Neurological: General: No focal deficit present. Mental Status: She is alert. Comments: Full sensation and movement to bilateral lower extremities Psychiatric: Mood and Affect: Mood normal. Behavior: Behavior normal. Assessment and Plan ASSESSMENT/PLAN: 1. Strain of lumbar region, initial encounter - ICD9: 847.2, ICD10: S39.012A Patient's presentation appears consistent with acute on chronic left lower back pain. I discussed with her that we did not have the ability to do a cortisone injection but we could do a 5-day prednisone burst. Patient is type II diabetic and as such she will be placed on a 20 mg daily dose. She is to otherwise continue with her prescribed pain medications, slowly resume activities as tolerated, and return for any new or worsening concerns. - PREDNISONE 20 MG TABLET Jacob Morris APRN.CNP documented in this encounter [facility] 12-02-2023 Telephone encounter Note The following approved medication requests have been transmitted electronically. Requested Prescriptions Pending Prescriptions Disp Refills citalopram (CELEXA) 20 mg tablet 90 tablet 1 Sig: Take 1 tablet by mouth once daily. metFORMIN ER (GLUCOPHAGE XR) 500 mg 24 hr tablet 90 tablet 1 Sig: Take 1 tablet by mouth daily with breakfast. Estefani Hector APRN.CNP [facility] 12-02-2023 Miscellaneous Notes The following approved medication requests have been transmitted electronically. Requested Prescriptions Pending Prescriptions Disp Refills citalopram (CELEXA) 20 mg tablet 90 tablet 1 Sig: Take 1 tablet by mouth once daily. metFORMIN ER (GLUCOPHAGE XR) 500 mg 24 hr tablet 90 tablet 1 Sig: Take 1 tablet by mouth daily with breakfast. Estefani Hector APRN.CNP Prescription Refill Information The patient has been identified by name and date of : Yes Caregiver verified no other encounters exist for this prescription request: Yes Caregiver confirmed with patient/requestor that no other refills are due, in the near future, with this provider at this time: Yes The last office visit in the department: 09/20/23 Does the patient have a future office visit with this provider/department: Yes 01/29/24 Requested Prescriptions Pending Prescriptions Disp Refills citalopram (CELEXA) 20 mg tablet 90 tablet 1 Sig: Take 1 tablet by mouth once daily. metFORMIN ER (GLUCOPHAGE XR) 500 mg 24 hr tablet 90 tablet 1 Sig: Take 1 tablet by mouth daily with breakfast. Oly Smith LPN December 02, 2023 8:22 AM documented in this encounter [facility] 12-02-2023 Telephone encounter Note Prescription Refill Information The patient has been identified by name and date of : Yes Caregiver verified no other encounters exist for this prescription request: Yes Caregiver confirmed with patient/requestor that no other refills are due, in the near future, with this provider at this time: Yes The last office visit in the department: 09/20/23 Does the patient have a future office visit with this provider/department: Yes 01/29/24 Requested Prescriptions Pending Prescriptions Disp Refills citalopram (CELEXA) 20 mg tablet 90 tablet 1 Sig: Take 1 tablet by mouth once daily. metFORMIN ER (GLUCOPHAGE XR) 500 mg 24 hr tablet 90 tablet 1 Sig: Take 1 tablet by mouth daily with breakfast. Oly Smith LPN December 02, 2023 8:22 AM [facility] 11-29-2023 Telephone encounter Note Prescription Refill Information The patient has been identified by name and date of : Yes Caregiver verified no other encounters exist for this prescription request: Yes Caregiver confirmed with patient/requestor that no other refills are due, in the near future, with this provider at this time: Yes The last office visit in the department: 09/20/23 Does the patient have a future office visit with this provider/department: Yes 01/29/24 Requested Prescriptions Pending Prescriptions Disp Refills HYDROcodone-Acetaminophen (NORCO) 7.5-325 mg per tablet 90 tablet 0 Sig: Take 1 tablet by mouth every 8 hours as needed for pain for up to 30 days. Oly Smith LPN November 29, 2023 1:30 PM [facility] 11-29-2023 Miscellaneous Notes Prescription Refill Information The patient has been identified by name and date of : Yes Caregiver verified no other encounters exist for this prescription request: Yes Caregiver confirmed with patient/requestor that no other refills are due, in the near future, with this provider at this time: Yes The last office visit in the department: 09/20/23 Does the patient have a future office visit with this provider/department: Yes 01/29/24 Requested Prescriptions Pending Prescriptions Disp Refills HYDROcodone-Acetaminophen (NORCO) 7.5-325 mg per tablet 90 tablet 0 Sig: Take 1 tablet by mouth every 8 hours as needed for pain for up to 30 days. Oly Smith LPN November 29, 2023 1:30 PM documented in this encounter [facility] 11-11-2023 Telephone encounter Note Prescription Refill Information The patient has been identified by name and date of : Yes Caregiver verified no other encounters exist for this prescription request: Yes Caregiver confirmed with patient/requestor that no other refills are due, in the near future, with this provider at this time: Yes The last office visit in the department: 09/20/23 Does the patient have a future office visit with this provider/department: Yes Requested Prescriptions Pending Prescriptions Disp Refills levothyroxine (SYNTHROID) 25 mcg tablet 90 tablet 3 Sig: Take 1 tablet by mouth once daily. Take on empty stomach. For thyroid. Macy Badillo LPN November 11, 2023 11:34 AM [facility] 11-11-2023 Miscellaneous Notes Prescription Refill Information The patient has been identified by name and date of : Yes Caregiver verified no other encounters exist for this prescription request: Yes Caregiver confirmed with patient/requestor that no other refills are due, in the near future, with this provider at this time: Yes The last office visit in the department: 09/20/23 Does the patient have a future office visit with this provider/department: Yes Requested Prescriptions Pending Prescriptions Disp Refills levothyroxine (SYNTHROID) 25 mcg tablet 90 tablet 3 Sig: Take 1 tablet by mouth once daily. Take on empty stomach. For thyroid. Macy Badillo LPN November 11, 2023 11:34 AM documented in this encounter [facility] 10-29-2023 Jocelyn Dudley - 10/29/2023 3:21 PM EDT Diabetes Foot Care Instructions When you have diabetes, proper foot care is very important. Poor foot care may lead to amputation of a foot or leg. As a person with diabetes, you are more vulnerable to foot problems, because diabetes can damage your nerves and reduce blood flow to your feet. Here are some diabetes foot care tips to follow: Wash and Dry Your Feet Daily Use mild soaps Use warm water Pat your skin dry; do not rub. Thoroughly dry your feet. After washing, use lotion on your feet to prevent cracking. Do not put lotion between your toes. Examine Your Feet Each Day Check the tops and bottoms of your feet. Have someone else look at your feet if you cannot see them. Check for dry, cracked skin. Look for blisters, cuts, scratches, or other sores. Check for redness, increased warmth, or tenderness when touching any area of your feet. Check for ingrown toenails, corns, and calluses. If you get a blister or sore from your shoes, do not "pop" it. Apply a bandage and wear a different pair of shoes. Take Care of Your Toenails Cut toenails after bathing, when they are soft. Cut toenails straight across and smooth with a nail file. Avoid cutting into the corners of toes. Do not cut cuticles. If you have neuropathy (or decreased sensation in your feet) a beam dyer recessed vat should always cut your toenails. Be Careful When Exercising Walk and exercise in comfortable shoes. Do not exercise when you have open sores on your feet. Protect Your Feet With Shoes and Socks Never go barefoot. Always protect your feet by wearing shoes or hard-soled slippers or footwear. Avoid shoes with high heels and pointed toes. Avoid shoes that expose your toes or heels (such as open-toed shoes or sandals). These types of shoes increase your risk for injury and potential infections. Try on new footwear with the type of socks you usually wear. Do not wear new shoes for more than an hour at a time. Change your socks daily. Look and feel inside your shoes before putting them on to make sure there are no foreign objects or rough areas. Avoid tight socks. Wear natural-fiber socks (cotton, wool, or a cotton-wool blend). Wear special shoes if your health care provider recommends them. Wear shoes/boots that will protect your feet from various weather conditions (cold, moisture, etc.). Make sure your shoes fit properly. If you have neuropathy (nerve damage), you may not notice that your shoes are too tight. Perform the "footwear test" described below. Footwear Test Use this simple test to see if your shoes fit correctly: Stand on a piece of paper. (Make sure you are standing and not sitting, because your foot changes shape when you stand.) Trace the outline of your foot. Trace the outline of your shoe. Compare the tracings: Is the shoe too narrow? Is your foot crammed into the shoe? The shoe should be at least 1/2 inch longer than your longest toe and as wide as your foot. Proper Shoe Choices The following types of shoes are best for people with diabetes Closed toes and heels Leather uppers without a seam inside At least 1/2 inch extra space at the end of your longest toe Inside of shoe should be soft with no rough areas Outer sole should be made of stiff material Shoes should be at least as wide as your feet Tips for Foot Care in Diabetes Don't wait to treat a minor foot problem if you have diabetes. Follow your health care provider's guidelines and first aid guidelines. Report foot injuries and infections to your health care provider immediately. Check water temperature with your elbow, not your foot. Do not use a heating pad on your feet. Do not cross your legs. Do not self-treat your corns, calluses, or other foot problems. Go to your health care provider or beam dyer recessed vat to treat these conditions. documented in this encounter [facility] 10-29-2023 Note HNO ID: [id number] Author: JOCELYN BROTHERS, ? Service: ? Author Type: Physician Type: Progress Notes Filed: 10/30/2023 07:53 Note Text: Initial Podiatric Office Visit: Consultation requested by Dr. Benjamin for an opinion regarding dystrophic toenails. My final recommendations will be communicated back to the requesting physician by way of shared Medical record or letter to requesting physician via [place] mail. Chief Complaint: This 88 year old female who presents with chief complaint:dystrophic toenails HPI Patient presents to clinic for evaluation of b/l feet Her greatest concern is dystrophic toenails of b/l feet and difficultly cutting them. She is diabetic x 30 years. Denies any numbness, tinging or burning Has no other complaints. PAIN EVALUATION No data found in the last 1 encounters. Hemoglobin A1C (%) Date Value 09/25/2023 6.7 05/21/2023 6.6 11/26/2022 6.2 07/25/2022 6.2 03/05/2022 6.4 02/07/2021 6.6 07/22/2020 7.0 03/10/2020 7.0 08/10/2019 6.8 04/03/2019 7.0 PCP: Shaquille Benjamin MD PAST MEDICAL HISTORY No date: Anxiety No date: CAD (coronary artery disease) No date: Congestive heart failure (CHF) ([facility]) No date: Diabetic retinopathy ([facility]) No date: Diverticulitis No date: Esophageal stenosis No date: GERD (gastroesophageal reflux disease) No date: Hemorrhoids No date: HTN (hypertension) No date: Hyperlipidemia No date: Low magnesium level No date: Polyneuropathy in diabetes ([facility]) No date: Sleep apnea No date: SSS (sick sinus syndrome) ([facility]) No date: Type 2 diabetes mellitus ([facility]) No date: Zenker's diverticulum Current Outpatient Medications Medication Sig HYDROcodone-Acetaminophen (NORCO) 7.5-325 mg per tablet Take 1 tablet by mouth every 8 hours as needed for pain for up to 30 days. losartan (COZAAR) 25 mg tablet Take 1 tablet by mouth once daily. pantoprazole DR (PROTONIX) 20 mg tablet Take 1 tablet by mouth two times a day. citalopram (CELEXA) 20 mg tablet Take 1 tablet by mouth once daily. metFORMIN ER (GLUCOPHAGE XR) 500 mg 24 hr tablet Take 1 tablet by mouth daily with breakfast. atorvastatin (LIPITOR) 20 mg tablet Take 1 tablet by mouth once daily. nebivolol (BYSTOLIC) 5 mg tablet Take 1 tablet by mouth once daily. levothyroxine (SYNTHROID) 25 mcg tablet Take 1 tablet by mouth once daily. Take on empty stomach. For thyroid. traZODone (DESYREL) 50 mg tablet Take 1 tablet by mouth daily at bedtime. blood sugar diagnostic (BLOOD GLUCOSE TEST) test strip Test blood sugar(s) 1 times daily. Dx: Type 2 DM - Controlled E11.9 Insulin: No BABY ASPIRIN ORAL Take 81 mg by mouth once daily. Lancets lancets Test blood sugar(s) 1 times daily. Dx: Type 2 DM - E11.8 Insulin: No cyanocobalamin (VITAMIN B-12) 1,000 mcg tab Take 1,000 mcg by mouth once daily. ubidecarenone Q-10 (COENZYME Q-10) 10 mg cap Take 50 mg by mouth twice daily. Cholecalciferol, Vitamin D3, 50 mcg (2,000 unit) cap Take by mouth. Magnesium Glycinate (MAG GLYCINATE) 100 mg tab Take 1 tablet by mouth once daily. No current facility-administered medications for this visit. ALLERGIES Allergen Reactions Januvia [Sitaglipti* Hives Penicillin Hives PAST SURGICAL HISTORY No date: APPENDECTOMY 05/24/2014: COLONOSCOPY No date: CORONARY ARTERY BYPASS GRAFT 07/10/2017: EGD Comment: Schatzki ring, hiatal hernia, non-bleeding gastropathy 11/01/2021: EGD W/O [facility] SPEC VARICIES INJ; N/A 1958: OTHER Comment: patent ductus repair 2009: OTHER Comment: aorta repair No date: OTHER Comment: retinal repair No family history on file. Social History Tobacco Use Smoking status: Never Smokeless tobacco: Never Vaping Use Vaping status: Never Used Substance Use Topics Alcohol use: Yes Comment: occasionally Drug use: No REVIEW OF SYSTEMS GENERAL: Negative for Malaise, significant weight loss, fever RESPIRATORY: Negative for cough, wheezing and shortness of breath CARDIOVASCULAR: Negative for chest pain, leg swelling and palpitations GI: Negative for abdominal discomfort, blood in stools or black stools and change in bowel habits : Negative for dysuria, frequency and incontinence MUSCULOSKELETAL: Negative for joint pain or swelling, back pain, and muscle pain. SKIN: Negative for lesions, rash, and itching. HEMATOLOGY/LYMPHOLOGY Negative for prolonged bleeding, bruising easily, and swollen nodes. ENDOCRINE: Negative for cold or heat intolerance, polyuria, polydipsia and goiter. NEURO: negative Physical Exam: Constitutional: Pt is a well developed 88 year old female who is alert, oriented and cooperative Eyes: Following during examination. No redness or drainage. Respiratory: RR normal and nonlabored. Even breathing. No evidence of distress or shortness of breath. Psychology: Patient is engaged during conversation. Normal affect and mood. Does not appear depressed or anxious during encounter. Vascular: Dorsalis pedis and po (more content not included)... [facility] 10-29-2023 History of Present illness Narrative Initial Podiatric Office Visit: Consultation requested by Dr. Benjamin for an opinion regarding dystrophic toenails. My final recommendations will be communicated back to the requesting physician by way of shared Medical record or letter to requesting physician via [place] mail. Chief Complaint: This 88 year old female who presents with chief complaint:dystrophic toenails HPI Patient presents to clinic for evaluation of b/l feet Her greatest concern is dystrophic toenails of b/l feet and difficultly cutting them. She is diabetic x 30 years. Denies any numbness, tinging or burning Has no other complaints. PAIN EVALUATION No data found in the last 1 encounters. Hemoglobin A1C (%) Date Value 09/25/2023 6.7 05/21/2023 6.6 11/26/2022 6.2 07/25/2022 6.2 03/05/2022 6.4 02/07/2021 6.6 07/22/2020 7.0 03/10/2020 7.0 08/10/2019 6.8 04/03/2019 7.0 PCP: Shaquille Benjamin MD PAST MEDICAL HISTORY No date: Anxiety No date: CAD (coronary artery disease) No date: Congestive heart failure (CHF) ([facility]) No date: Diabetic retinopathy ([facility]) No date: Diverticulitis No date: Esophageal stenosis No date: GERD (gastroesophageal reflux disease) No date: Hemorrhoids No date: HTN (hypertension) No date: Hyperlipidemia No date: Low magnesium level No date: Polyneuropathy in diabetes ([facility]) No date: Sleep apnea No date: SSS (sick sinus syndrome) ([facility]) No date: Type 2 diabetes mellitus ([facility]) No date: Zenker's diverticulum Current Outpatient Medications Medication Sig HYDROcodone-Acetaminophen (NORCO) 7.5-325 mg per tablet Take 1 tablet by mouth every 8 hours as needed for pain for up to 30 days. losartan (COZAAR) 25 mg tablet Take 1 tablet by mouth once daily. pantoprazole DR (PROTONIX) 20 mg tablet Take 1 tablet by mouth two times a day. citalopram (CELEXA) 20 mg tablet Take 1 tablet by mouth once daily. metFORMIN ER (GLUCOPHAGE XR) 500 mg 24 hr tablet Take 1 tablet by mouth daily with breakfast. atorvastatin (LIPITOR) 20 mg tablet Take 1 tablet by mouth once daily. nebivolol (BYSTOLIC) 5 mg tablet Take 1 tablet by mouth once daily. levothyroxine (SYNTHROID) 25 mcg tablet Take 1 tablet by mouth once daily. Take on empty stomach. For thyroid. traZODone (DESYREL) 50 mg tablet Take 1 tablet by mouth daily at bedtime. blood sugar diagnostic (BLOOD GLUCOSE TEST) test strip Test blood sugar(s) 1 times daily. Dx: Type 2 DM - Controlled E11.9 Insulin: No BABY ASPIRIN ORAL Take 81 mg by mouth once daily. Lancets lancets Test blood sugar(s) 1 times daily. Dx: Type 2 DM - E11.8 Insulin: No cyanocobalamin (VITAMIN B-12) 1,000 mcg tab Take 1,000 mcg by mouth once daily. ubidecarenone Q-10 (COENZYME Q-10) 10 mg cap Take 50 mg by mouth twice daily. Cholecalciferol, Vitamin D3, 50 mcg (2,000 unit) cap Take by mouth. Magnesium Glycinate (MAG GLYCINATE) 100 mg tab Take 1 tablet by mouth once daily. No current facility-administered medications for this visit. ALLERGIES Allergen Reactions Januvia [Sitaglipti* Hives Penicillin Hives PAST SURGICAL HISTORY No date: APPENDECTOMY 05/24/2014: COLONOSCOPY No date: CORONARY ARTERY BYPASS GRAFT 07/10/2017: EGD Comment: Schatzki ring, hiatal hernia, non-bleeding gastropathy 11/01/2021: EGD W/O [facility] SPEC VARICIES INJ; N/A 1958: OTHER Comment: patent ductus repair 2008: OTHER Comment: aorta repair No date: OTHER Comment: retinal repair No family history on file. Social History Tobacco Use Smoking status: Never Smokeless tobacco: Never Vaping Use Vaping status: Never Used Substance Use Topics Alcohol use: Yes Comment: occasionally Drug use: No REVIEW OF SYSTEMS GENERAL: Negative for Malaise, significant weight loss, fever RESPIRATORY: Negative for cough, wheezing and shortness of breath CARDIOVASCULAR: Negative for chest pain, leg swelling and palpitations GI: Negative for abdominal discomfort, blood in stools or black stools and change in bowel habits : Negative for dysuria, frequency and incontinence MUSCULOSKELETAL: Negative for joint pain or swelling, back pain, and muscle pain. SKIN: Negative for lesions, rash, and itching. HEMATOLOGY/LYMPHOLOGY Negative for prolonged bleeding, bruising easily, and swollen nodes. ENDOCRINE: Negative for cold or heat intolerance, polyuria, polydipsia and goiter. NEURO: negative Physical Exam: Constitutional: Pt is a well developed 88 year old female who is alert, oriented and cooperative Eyes: Following during examination. No redness or drainage. Respiratory: RR normal and nonlabored. Even breathing. No evidence of distress or shortness of breath. Psychology: Patient is engaged during conversation. Normal affect and mood. Does not appear depressed or anxious during encounter. Vascular: Dorsalis pedis and posterior tibial pulses nonpalpable b/l Capillary Fill time < 5 seconds to digits 1-5 b/l Skin temperature warm to cool proximal to distal b/l Hair growth absent to digits Skin is pallor b/l. Neurological: decreased light touch/epicritic sensation Vibratory sensation is absent b/l decreased protective sensation + significant neurological deficits Dermatological: Nails 1-5 b/l appear thick, discolored, dystrophic. Webspaces clean and dry 1-4 b/l. Skin appears well hydrated and supple. good color, texture, turgor. No open lesions present. No callosities present. Musculoskeletal/Orthopaedic: Patient has no pain to palpation of b/l feet Foot type is neutral structurally AJ ROM is full with knee extended and flexed 1st MPJ is full when loaded and no pain or crepitus are noted with ROM. MTJ, STJ are full and free of pain and crepitus. +5/5 muscle strength dorsiflexion, plantarflexion, inversion, eversion b/l Radiographs: n/a ASSESSMENT: (E11.8) Type 2 diabetes mellitus with complication, without long-term current use of insulin ([facility]) (primary encounter diagnosis) (B35.1) Onychomycosis (R09.89) Diminished pulses in lower extremity PLAN: 1. History and physical examination performed. 2. Diabetic foot exam performed. Stressed the importance of avoiding barefoot walking, wearing good shoes and inspection of feet daily 3. Toenails 1-5 b/l debrided in length and thickness. 4. Discussed decreased circulation on exam. Discussed getting pvr. Patient has elected to hold on additional testing at this time. Jocelyn Brothers DPM Podiatry [address] [facility] [address] Dept: [phone] Dept Patient presents with: Left Foot - New, Nail Check, Diabetic Foot Check Right Foot - New, Nail Check, Diabetic Foot Check Patient presents as referral from Dr. Benjamin's office for diabetic foot exam and Onychomycosis. Patient's toenails are long, thick and discolored. Denies any foot pain. States that she is a diabetic and has difficulty trimming her toenails. documented in this encounter [facility] 10-29-2023 Note HNO ID: [id number] Author: LAURA ECHEVARRIA RN Service: ? Author Type: Registered Nurse Type: Progress Notes Filed: 10/30/2023 07:53 Note Text: Patient presents with: Left Foot - New, Nail Check, Diabetic Foot Check Right Foot - New, Nail Check, Diabetic Foot Check Patient presents as referral from Dr. Benjamin's office for diabetic foot exam and Onychomycosis. Patient's toenails are long, thick and discolored. Denies any foot pain. States that she is a diabetic and has difficulty trimming her toenails. [facility] 10-29-2023 Telephone encounter Note Prescription Refill Information The patient has been identified by name and date of : Yes Caregiver verified no other encounters exist for this prescription request: Yes Caregiver confirmed with patient/requestor that no other refills are due, in the near future, with this provider at this time: Yes The last office visit in the department: 09/20/23 Does the patient have a future office visit with this provider/department: Yes, 01/29/24 Requested Prescriptions Pending Prescriptions Disp Refills HYDROcodone-Acetaminophen (NORCO) 7.5-325 mg per tablet 90 tablet 0 Sig: Take 1 tablet by mouth every 8 hours as needed for pain for up to 30 days. Ronnie Hyman LPN October 29, 2023 11:03 AM [facility] 10-29-2023 Miscellaneous Notes Prescription Refill Information The patient has been identified by name and date of : Yes Caregiver verified no other encounters exist for this prescription request: Yes Caregiver confirmed with patient/requestor that no other refills are due, in the near future, with this provider at this time: Yes The last office visit in the department: 09/20/23 Does the patient have a future office visit with this provider/department: Yes, 01/29/24 Requested Prescriptions Pending Prescriptions Disp Refills HYDROcodone-Acetaminophen (NORCO) 7.5-325 mg per tablet 90 tablet 0 Sig: Take 1 tablet by mouth every 8 hours as needed for pain for up to 30 days. Ronnie Hyman LPN October 29, 2023 11:03 AM documented in this encounter [facility] 09-26-2023 Telephone encounter Note Patient informed and verbalized understanding. Yes, she is taking the magnesium. Advised her to come in in the next few weeks to check level. Em Aly MA [facility] 09-26-2023 Miscellaneous Notes Patient informed and verbalized understanding. Yes, she is taking the magnesium. Advised her to come in in the next few weeks to check level. Em Aly MA Labs are all stable. I think Rula Mejia, her daughter in law was going to try and have her take a new type of mag. See if she is starting to take it. If so, can recheck mag in a few weeks. documented in this encounter [facility] 09-26-2023 Telephone encounter Note Labs are all stable. I think Rula Mejia, her daughter in law was going to try and have her take a new type of mag. See if she is starting to take it. If so, can recheck mag in a few weeks. [facility] 09-25-2023 Telephone encounter Note Done. [facility] 09-25-2023 Miscellaneous Notes Done. Let them know KATHY Mejia called back to report she spoke to pt & pt does not want to pursue this test, order can be canceled. Zoila Parada LPN Lori sends fax asking for ST order with hx of dysphagia. Left message for Rula daughter in law to contact office back. Do they feel this is something that should be done or not? documented in this encounter [facility] 09-25-2023 Telephone encounter Note Let them know [facility] 09-25-2023 Telephone encounter Note KATHY Mejia called back to report she spoke to pt & pt does not want to pursue this test, order can be canceled. Zoila Parada LPN [facility] 09-23-2023 Telephone encounter Note Lori sends fax asking for ST order with hx of dysphagia. Left message for Rula daughter in law to contact office back. Do they feel this is something that should be done or not? [facility] 09-20-2023 History of Present illness Narrative Patient presents with: Follow Up HPI: Patient presents today for office visit for follow up. Has not done as well since having to move to a studio apartment. Not as happy. Upset with lack of privacy. Feels "lousy" in general. Diabetes: Checking glucose once daily. HTN: Patient is compliant with meds Yes Monitors bp at home: Yes. Denies side effects: Yes. Chest pain: No. Dyspnea: No. Edema: No. Palpitations: No. Syncope: No. Headache: No. Dizziness: No. Has had a few gagging and choking episodes at the table. So has not gone as much to dinner. Had an appt done in Jan by Dr Kirkland. Declines repeat evaluation. Had been eating chocolate and coffee again. Discussed limiting caffeine. Protonix is back at bid. Not taking mag No falls. Using a lactose free milk and watching diet. Does have occasional loose stools. Pain is ok most of the time. Has been on for some time chronically Helps with ADLs Has some joint pain. Note was copied and pasted, without alteration from: previous ov: HLD: Current medication: Atorvastatin 20 mg daily No myalgias HTN: Current medications: Losartan 25 mg daily Nebivolol 5 mg daily [place] nurse checks BP occ. Stable. Denies chest pain and shortness of breath. Denies headaches and dizziness. Denies palpitations and syncope. Denies edema. DM: Current medications: Metformin 500 mg daily Checks sugars every morning. THYROID: Current medication: Levothyroxine 25 mcg daily Stable No energy. Unchanged. Mentions I'm just weak Ambulates with walker No falls. Appetite is ok. Has a protein shake for breakfast and lunch and then a full meal at dinner. Continues on Trazadone for sleep. Sleeping well. Sleeping through the night. Notes has to get up once or twice to urinate. Continues on Citalopram 20 mg daily. Moods have been lousy. Mentions she doesn't have any ambition. Sits a lot during the day. States what else am I going to do Discussed SAD. Discussed getting out as the weather improves. Has hx of hypomag and hyponatremia. Has seen nephrology for the same. We have adjusted meds before. Pain still bothers her some. Mostly knee Oarr done. Uses meds prn. Helps her to function. Has done controlled substance agreement. No misuse or abuse. No dysphagia. Cancelled her last appt with Dr Friend. Has decaffeinated and it helps. Still following with Cardiology. Saw recently. Will be seeing a new cardiology in [place] [facility]. MEDICATIONS: Current Outpatient Medications Medication Sig losartan (COZAAR) 25 mg tablet Take 1 tablet by mouth once daily. HYDROcodone-Acetaminophen (NORCO) 7.5-325 mg per tablet Take 1 tablet by mouth every 8 hours as needed for pain for up to [address] (PROTONIX) 20 mg tablet Take 1 tablet by mouth two times a day. citalopram (CELEXA) 20 mg tablet Take 1 tablet by mouth once daily. metFORMIN ER (GLUCOPHAGE XR) 500 mg 24 hr tablet Take 1 tablet by mouth daily with breakfast. atorvastatin (LIPITOR) 20 mg tablet Take 1 tablet by mouth once daily. nebivolol (BYSTOLIC) 5 mg tablet Take 1 tablet by mouth once daily. levothyroxine (SYNTHROID) 25 mcg tablet Take 1 tablet by mouth once daily. Take on empty stomach. For thyroid. traZODone (DESYREL) 50 mg tablet Take 1 tablet by mouth daily at bedtime. Magnesium 200 mg tab As a gummy-take 2 po bid BABY ASPIRIN ORAL Take 81 mg by mouth once daily. Cholecalciferol, Vitamin D3, 50 mcg (2,000 unit) cap Take by mouth. blood sugar diagnostic (BLOOD GLUCOSE TEST) test strip Test blood sugar(s) 1 times daily. Dx: Type 2 DM - Controlled E11.9 Insulin: No Lancets lancets Test blood sugar(s) 1 times daily. Dx: Type 2 DM - E11.8 Insulin: No cyanocobalamin (VITAMIN B-12) 1,000 mcg tab Take 1,000 mcg by mouth once daily. ubidecarenone Q-10 (COENZYME Q-10) 10 mg cap Take 50 mg by mouth twice daily. No current facility-administered medications for this visit. 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 Social History Tobacco Use Smoking status: Never Smokeless tobacco: Never Vaping Use Vaping Use: Never used Substance Use Topics Alcohol use: Yes Comment: occasionally Drug use: No Reviewed current medications, allergies, past medical history, surgical history, family history and social history today. REVIEW OF SYSTEMS All other reviewed and negative other than HPI. HEALTH MAINTENANCE: Reviewed health maintenance issues today and recommended the following in detail. Anxiety Screening Never done Urine Albumin:Creatinine Ratio due on 07/26/2023 Diabetic Foot Exam due on 07/31/2023 Covid-19 Vaccine( season) due on 09/20/2023 VITALS: BP 120/68 Pulse 68 Wt 75.3 kg (166 lb) SpO2 98% BMI 26.00 kg/m Last 4 Encounter Wt Readings: Date: Wt: 09/20/2023 75.3 kg (166 lb) 05/21/2023 77.6 kg (171 lb) 02/06/2023 74.8 kg (165 lb) 11/07/2022 73.5 kg (162 lb) PHYSICAL EXAMINATION: General appearance: Well appearing, alert, in no acute distress, well-hydrated, well nourished. Skin: Skin color, texture, turgor normal, no suspicious rashes or lesions Lungs: Lungs clear to auscultation. No wheezing, rhonchi, rales Heart: RRR without murmur, gallop, or rubs. No ectopy Abdomen: Normal abdominal exam, Abdomen soft, non-tender. Bowel sounds normal. No masses, organomegaly Extremities: No deformities, edema, skin discoloration, clubbing or cyanosis. Good capillary refill. Musculoskeletal: No joint swelling, deformity, or tenderness ASSESSMENT/PLAN: 1. Tachycardia-bradycardia (HCC) - ICD9: 427.81, ICD10: I49.5 (primary diagnosis) - per cardiology 2. Pure hypercholesterolemia - ICD9: 272.0, ICD10: E78.00 -s table. 3. ELKIN (obstructive sleep apnea) - ICD9: 327.23, ICD10: G47.33 - does not treat 4. History of coronary artery bypass surgery - ICD9: V45.81, ICD10: Z95.1 - stable. 5. History of major vascular surgery - ICD9: V15.1, ICD10: Z98.890 - stable. 6. Vitamin B12 deficiency - ICD9: 266.2, ICD10: E53.8 - has been good. 7. Zenker diverticulum - ICD9: 530.6, ICD10: K22.5 - declines follow up 8. GERD without esophagitis - ICD9: 530.81, ICD10: K21.9 Limit caffeine 9. Type 2 diabetes mellitus with complication, without long-term current use of insulin (HCC) - ICD9: 250.90, ICD10: E11.8 - follow progress. Has thick toenails she cannot cut. See podatiatry - BASIC METABOLIC PANEL - HEMOGLOBIN A1C - ALBUMIN/CREATININE RATIO, URINE - CONSULT TO PODIATRY 10. Hypomagnesemia - ICD9: 275.2, ICD10: E83.42 - follow labs now trying mag glycinate. Has not been using yet. - MAGNESIUM - MAG GLYCINATE 100 MG TABLET 11. Subclinical hypothyroidism - ICD9: 244.8, ICD10: E03.8 - stable. 12. Hyponatremia - ICD9: 276.1, ICD10: E87.1 - has seen nephro for same. follow - BASIC METABOLIC PANEL 13. Onychomycosis - ICD9: 110.1, ICD10: B35.1 - CONSULT TO PODIATRY 14. Anemia, unspecified type - ICD9: 285.9, ICD10: D64.9 - COMPLETE BLOOD COUNT AND DIFFERENTIAL - IRON AND TIBC - FERRITIN - VITAMIN B12 15. Medication monitoring encounter - ICD9: V58.83, ICD10: Z51.81 - continue meds. Pain pills are appropriate. - TOXICOLOGY SCREEN, ROUTINE URINE 16. Encounter for screening examination for other mental health and behavioral disorders - ICD9: V79.8, ICD10: Z13.39 - ANXIETY SCREENING Shaquille Benjamin MD documented in this encounter [facility] 09-20-2023 Note HNO ID: [id number] Author: SHAQUILLE BENJAMIN MD Service: ? Author Type: Physician Type: Progress Notes Filed: 09/20/2023 17:39 Note Text: Patient presents with: Follow Up HPI: Patient presents today for office visit for follow up. Has not done as well since having to move to a studio apartment. Not as happy. Upset with lack of privacy. Feels "lousy" in general. Diabetes: Checking glucose once daily. HTN: Patient is compliant with meds Yes Monitors bp at home: Yes. Denies side effects: Yes. Chest pain: No. Dyspnea: No. Edema: No. Palpitations: No. Syncope: No. Headache: No. Dizziness: No. Has had a few gagging and choking episodes at the table. So has not gone as much to dinner. Had an appt done in Jan by Dr Kirkland. Declines repeat evaluation. Had been eating chocolate and coffee again. Discussed limiting caffeine. Protonix is back at bid. Not taking mag No falls. Using a lactose free milk and watching diet. Does have occasional loose stools. Pain is ok most of the time. Has been on for some time chronically Helps with ADLs Has some joint pain. Note was copied and pasted, without alteration from: previous ov: HLD: Current medication: Atorvastatin 20 mg daily No myalgias HTN: Current medications: Losartan 25 mg daily Nebivolol 5 mg daily [place] nurse checks BP occ. Stable. Denies chest pain and shortness of breath. Denies headaches and dizziness. Denies palpitations and syncope. Denies edema. DM: Current medications: Metformin 500 mg daily Checks sugars every morning. THYROID: Current medication: Levothyroxine 25 mcg daily Stable No energy. Unchanged. Mentions I'm just weak Ambulates with walker No falls. Appetite is ok. Has a protein shake for breakfast and lunch and then a full meal at dinner. Continues on Trazadone for sleep. Sleeping well. Sleeping through the night. Notes has to get up once or twice to urinate. Continues on Citalopram 20 mg daily. Moods have been lousy. Mentions she doesn't have any ambition. Sits a lot during the day. States what else am I going to do Discussed SAD. Discussed getting out as the weather improves. Has hx of hypomag and hyponatremia. Has seen nephrology for the same. We have adjusted meds before. Pain still bothers her some. Mostly knee Oarr done. Uses meds prn. Helps her to function. Has done controlled substance agreement. No misuse or abuse. No dysphagia. Cancelled her last appt with Dr Isael. Has decaffeinated and it helps. Still following with Cardiology. Saw recently. Will be seeing a new cardiology in [facility]. MEDICATIONS: Current Outpatient Medications Medication Sig losartan (COZAAR) 25 mg tablet Take 1 tablet by mouth once daily. HYDROcodone-Acetaminophen (NORCO) 7.5-325 mg per tablet Take 1 tablet by mouth every 8 hours as needed for pain for up to [address] (PROTONIX) 20 mg tablet Take 1 tablet by mouth two times a day. citalopram (CELEXA) 20 mg tablet Take 1 tablet by mouth once daily. metFORMIN ER (GLUCOPHAGE XR) 500 mg 24 hr tablet Take 1 tablet by mouth daily with breakfast. atorvastatin (LIPITOR) 20 mg tablet Take 1 tablet by mouth once daily. nebivolol (BYSTOLIC) 5 mg tablet Take 1 tablet by mouth once daily. levothyroxine (SYNTHROID) 25 mcg tablet Take 1 tablet by mouth once daily. Take on empty stomach. For thyroid. traZODone (DESYREL) 50 mg tablet Take 1 tablet by mouth daily at bedtime. Magnesium 200 mg tab As a gummy-take 2 po bid BABY ASPIRIN ORAL Take 81 mg by mouth once daily. Cholecalciferol, Vitamin D3, 50 mcg (2,000 unit) cap Take by mouth. blood sugar diagnostic (BLOOD GLUCOSE TEST) test strip Test blood sugar(s) 1 times daily. Dx: Type 2 DM - Controlled E11.9 Insulin: No Lancets lancets Test blood sugar(s) 1 times daily. Dx: Type 2 DM - E11.8 Insulin: No cyanocobalamin (VITAMIN B-12) 1,000 mcg tab Take 1,000 mcg by mouth once daily. ubidecarenone Q-10 (COENZYME Q-10) 10 mg cap Take 50 mg by mouth twice daily. No current facility-administered medications for this visit. ALLERGIES: ALLERGIES Allergen Reactions Januvia [Sitaglipti* Hives Penicillin Hives PAST MEDICAL HISTORY Diagnosis Date Anxiety CAD (coronary artery disease) Congestive heart failure (CHF) (HCC) Diabetic retinopathy (HCC) Diverticulitis Esophageal stenosis GERD (gastroesophageal reflux disease) Hemorrhoids HTN (hypertension) Hyperlipidemia Low magnesium level Polyneuropathy in diabetes (HCC) Sleep apnea SSS (sick sinus syndrome) (HCC) Type 2 diabetes mellitus (HCC) Zenker's diverticulum PAST SURGICAL HISTORY Procedure Laterality Date APPENDECTOMY COLONOSCOPY 05/24/2014 CORONARY ARTERY BYPASS GRAFT EGD 07/10/2017 Schatzki ring, hiatal hernia, non-bleeding gastropathy EGD W/O BRSH SPEC VARICIES INJ N/A 11/01/2021 OTHER 1958 patent ductus repair OTHER 2008 aorta repair OT (more content not included)... [facility] 09-16-2023 Telephone encounter Note Patient [place] message requesting the following refill Refill(s) Requested: Requested Prescriptions Pending Prescriptions Disp Refills losartan (COZAAR) 25 mg tablet 90 tablet 1 Sig: Take 1 tablet by mouth once daily. ALLERGIES Allergen Reactions Januvia [Sitaglipti* Hives Penicillin Hives (home) Last Office Visit Date: 05/21/2023 Last Distance Health Visit: Visit date not found Future Appointment: 09/20/2023 The patients preferred pharmacy has been captured for this encounter? yes Request is for script(s) to be escript to pharmacy. Terri Holland LPN [facility] 09-16-2023 Miscellaneous Notes Patient [place] message requesting the following refill Refill(s) Requested: Requested Prescriptions Pending Prescriptions Disp Refills losartan (COZAAR) 25 mg tablet 90 tablet 1 Sig: Take 1 tablet by mouth once daily. ALLERGIES Allergen Reactions Januvia [Sitaglipti* Hives Penicillin Hives (home) Last Office Visit Date: 05/21/2023 Last [facility] Visit: Visit date not found Future Appointment: 09/20/2023 The patients preferred pharmacy has been captured for this encounter? yes Request is for script(s) to be escript to pharmacy. Terri Holland LPN documented in this encounter [facility] 08-27-2023 Telephone encounter Note Prescription Refill Information The patient has been identified by name and date of : Yes Caregiver verified no other encounters exist for this prescription request: Yes Caregiver confirmed with patient/requestor that no other refills are due, in the near future, with this provider at this time: Yes The last office visit in the department: 05/21/2023 Does the patient have a future office visit with this provider/department: Yes Requested Prescriptions Pending Prescriptions Disp Refills HYDROcodone-Acetaminophen (NORCO) 7.5-325 mg per tablet 90 tablet 0 Sig: Take 1 tablet by mouth every 8 hours as needed for pain for up to 30 days. Refused Prescriptions Disp Refills metFORMIN ER (GLUCOPHAGE XR) 500 mg 24 hr tablet 90 tablet 1 Sig: Take 1 tablet by mouth daily with breakfast. Estefani Lane LPN August 27, 2023 11:46 AM [facility] 08-27-2023 Miscellaneous Notes Prescription Refill Information The patient has been identified by name and date of : Yes Caregiver verified no other encounters exist for this prescription request: Yes Caregiver confirmed with patient/requestor that no other refills are due, in the near future, with this provider at this time: Yes The last office visit in the department: 05/21/2023 Does the patient have a future office visit with this provider/department: Yes Requested Prescriptions Pending Prescriptions Disp Refills HYDROcodone-Acetaminophen (NORCO) 7.5-325 mg per tablet 90 tablet 0 Sig: Take 1 tablet by mouth every 8 hours as needed for pain for up to 30 days. Refused Prescriptions Disp Refills metFORMIN ER (GLUCOPHAGE XR) 500 mg 24 hr tablet 90 tablet 1 Sig: Take 1 tablet by mouth daily with breakfast. Estefani Lane LPN August 27, 2023 11:46 AM documented in this encounter [facility] 08-05-2023 Telephone encounter Note Prescription Refill Information The patient has been identified by name and date of : Yes Caregiver verified no other encounters exist for this prescription request: Yes Caregiver confirmed with patient/requestor that no other refills are due, in the near future, with this provider at this time: Yes The last office visit in the department: 05/21/23 Does the patient have a future office visit with this provider/department: 09/20/23 Requested Prescriptions Pending Prescriptions Disp Refills pantoprazole DR (PROTONIX) 20 mg tablet 180 tablet 3 Sig: Take 1 tablet by mouth two times a day. Larissa Calvillo MA August 05, 2023 4:28 PM [facility] 08-05-2023 Miscellaneous Notes Prescription Refill Information The patient has been identified by name and date of : Yes Caregiver verified no other encounters exist for this prescription request: Yes Caregiver confirmed with patient/requestor that no other refills are due, in the near future, with this provider at this time: Yes The last office visit in the department: 05/21/23 Does the patient have a future office visit with this provider/department: 09/20/23 Requested Prescriptions Pending Prescriptions Disp Refills pantoprazole DR (PROTONIX) 20 mg tablet 180 tablet 3 Sig: Take 1 tablet by mouth two times a day. Larissa Calvillo MA August 05, 2023 4:28 PM documented in this encounter [facility] 06-10-2023 Miscellaneous Notes Patient [place] message requesting the following refill Refill(s) Requested: Requested Prescriptions Pending Prescriptions Disp Refills HYDROcodone-Acetaminophen (NORCO) 7.5-325 mg per tablet 0 Sig: Take 1 tablet by mouth every 8 hours as needed for pain for up to 41 days. ALLERGIES Allergen Reactions Januvia [Sitaglipti* Hives Penicillin Hives (home) Last Office Visit Date: 05/21/2023 Last [facility] Health Visit: Visit date not found Future Appointment: 09/20/2023 The patients preferred pharmacy has been captured for this encounter? yes Request is for script(s) to be escript to pharmacy. Terri Holland LPN documented in this encounter [facility] 06-03-2023 Miscellaneous Notes Patient has been identified by name and date of : Yes Patient phones for refill(s): Requested Prescriptions Pending Prescriptions Disp Refills citalopram (CELEXA) 20 mg tablet 90 tablet 1 Sig: Take 1 tablet by mouth once daily. metFORMIN ER (GLUCOPHAGE XR) 500 mg 24 hr tablet 90 tablet 1 Sig: Take 1 tablet by mouth daily with breakfast. Date of last office visit in primary care: 05/21/2023 Date of next office visit in primary care: 09/20/2023 Please advise. Thank you. Ronnie Hyman LPN. documented in this encounter [facility] 05-21-2023 History of Present illness Narrative Patient presents with: Follow Up HPI: Patient presents today for office visit for 3 month follow up. HLD: Current medication: Atorvastatin 20 mg daily No myalgias HTN: Current medications: Losartan 25 mg daily Nebivolol 5 mg daily [place] nurse checks BP occ. Stable. Denies chest pain and shortness of breath. Denies headaches and dizziness. Denies palpitations and syncope. Denies edema. DM: Current medications: Metformin 500 mg daily Checks sugars every morning. THYROID: Current medication: Levothyroxine 25 mcg daily Stable No energy. Unchanged. Mentions I'm just weak Ambulates with walker No falls. Appetite is ok. Has a protein shake for breakfast and lunch and then a full meal at dinner. Continues on Trazadone for sleep. Sleeping well. Sleeping through the night. Notes has to get up once or twice to urinate. Continues on Citalopram 20 mg daily. Moods have been lousy. Mentions she doesn't have any ambition. Sits a lot during the day. States what else am I going to do Discussed SAD. Discussed getting out as the weather improves. Has hx of hypomag and hyponatremia. Has seen nephrology for the same. We have adjusted meds before. Pain still bothers her some. Mostly knee Oarr done. Uses meds prn. Helps her to function. Has done controlled substance agreement. No misuse or abuse. No dysphagia. Cancelled her last appt with Dr Kirkland. Has decaffeinated and it helps. Still following with Cardiology. Saw recently. Will be seeing a new cardiology in [facility]. MEDICATIONS: Current Outpatient Medications Medication Sig atorvastatin (LIPITOR) 20 mg tablet Take 1 tablet by mouth once daily. losartan (COZAAR) 25 mg tablet Take 1 tablet by mouth once daily. nebivolol (BYSTOLIC) 5 mg tablet Take 1 tablet by mouth once daily. HYDROcodone-Acetaminophen (NORCO) 7.5-325 mg per tablet Take 1 tablet by mouth every 8 hours as needed for pain for up to 41 days. metFORMIN ER (GLUCOPHAGE XR) 500 mg 24 hr tablet Take 1 tablet by mouth daily with breakfast. levothyroxine (SYNTHROID) 25 mcg tablet Take 1 tablet by mouth once daily. Take on empty stomach. For thyroid. traZODone (DESYREL) 50 mg tablet Take 1 tablet by mouth daily at bedtime. citalopram (CELEXA) 20 mg tablet Take 1 tablet by mouth once daily. Magnesium 200 mg tab As a gummy-take [address] (PROTONIX) 20 mg tablet Take 1 tablet by mouth twice daily. blood sugar diagnostic (BLOOD GLUCOSE TEST) test strip Test blood sugar(s) 1 times daily. Dx: Type 2 DM - Controlled E11.9 Insulin: No BABY ASPIRIN ORAL Take 81 mg by mouth once daily. Lancets lancets Test blood sugar(s) 1 times daily. Dx: Type 2 DM - E11.8 Insulin: No cyanocobalamin (VITAMIN B-12) 1,000 mcg tab Take 1,000 mcg by mouth once daily. ubidecarenone Q-10 (COENZYME Q-10) 10 mg cap Take 50 mg by mouth twice daily. Cholecalciferol, Vitamin D3, 50 mcg (2,000 unit) cap Take by mouth. No current facility-administered medications for this visit. 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 Social History Tobacco Use Smoking status: Never Smokeless tobacco: Never Vaping Use Vaping Use: Never used Substance Use Topics Alcohol use: Yes Comment: occasionally Drug use: No Reviewed current medications, allergies, past medical history, surgical history, family history and social history today. REVIEW OF SYSTEMS All other reviewed and negative other than HPI. HEALTH MAINTENANCE: Reviewed health maintenance issues today and recommended the following in detail. RSV Vaccine(1 - 1-dose 60+ series) Never done Shingrix Vaccine(2 of 3) due on 02/03/2014 Covid-19 Vaccine(2022-24 season) -had one in fall. Is over four months. Advance Directive Discussion -done. VITALS: BP 146/72 Pulse 64 Ht 170.2 cm (5' 7") Wt 77.6 kg (171 lb) SpO2 98% BMI 26.78 kg/m Last 4 Encounter Wt Readings: Date: Wt: 02/06/2023 74.8 kg (165 lb) 11/07/2022 73.5 kg (162 lb) 06/06/2022 74.8 kg (165 lb) 03/07/2022 74.8 kg (165 lb) PHYSICAL EXAMINATION: General appearance: Well appearing, alert, in no acute distress, well-hydrated, well nourished. Skin: Skin color, texture, turgor normal, no suspicious rashes or lesions Head: Normocephalic, no masses, lesions, tenderness or abnormalities Lungs: Lungs clear to auscultation. No wheezing, rhonchi, rales Heart: RRR II/ murmur, gallop, or rubs. No ectopy Abdomen: Normal abdominal exam, Abdomen soft, non-tender. Bowel sounds normal. No masses, organomegaly Extremities: No deformities, edema, skin discoloration, clubbing or cyanosis. Good capillary refill. Musculoskeletal: No joint swelling, deformity, or tenderness ASSESSMENT/PLAN: 1. Essential hypertension - ICD9: 401.9, ICD10: I10 (primary diagnosis) - Controlled - Continue current medications - CBC + DIFF - COMP METABOLIC PANEL - LIPID PANEL, NONFASTING 2. Coronary artery disease involving grayling heart without angina pectoris, unspecified vessel or lesion type - ICD9: 414.01, ICD10: I25.10 - continue to see cardiology. 3. Hyperlipidemia, mixed - ICD9: 272.2, ICD10: E78.2 - stable 4. Vitamin B12 deficiency - ICD9: 266.2, ICD10: E53 - VITAMIN B12 BLOOD 5. Type 2 diabetes mellitus with complication, without long-term current use of insulin (HCC) - ICD9: 250.90, ICD10: E11.8 - follow labs. - HGB A1C 6. Hypomagnesemia - ICD9: 275.2, ICD10: E83.42 - again has seen nephro in the past. They have wondered if she has a low grade gittleman's. - MAGNESIUM BLD 7. Subclinical hypothyroidism - ICD9: 244.8, ICD10: E03.8 - TSH BLD 8. Bilateral carotid artery stenosis - ICD9: 433.10, 433.30, ICD10: I65.23 - declines further follow up. 9. Zenker diverticulum - ICD9: 530.6, ICD10: K22.5 -does not want further egd. Cutting caffeine has helped. 10. Tachycardia-bradycardia (HCC) - ICD9: 427.81, ICD10: I49.5 - stable 11. Pure hypercholesterolemia - ICD9: 272.0, ICD10: E78.00 - stable. 12. Depression, unspecified depression type - ICD9: 311, ICD10: F32.A - see how she does with warmer weather. Encouraged increased activiely 13. Hyponatremia - ICD9: 276.1, ICD10: E87.1 -as above. 14. Need for vaccination - ICD9: V05.9, ICD10: Z23 - PFIZER-BIONTECH COVID-19 VACCINE (2022- [place]) AGE 12+ YR Shaquille Benjamin MD documented in this encounter [facility] 11-07-2022 History of Past i llness Narrative Problem Noted Date Diagnosed Date Resolved Date Fall 11/07/2022 11/07/2022 11/07/2022 Lesion of esophagus 11/07/2022 11/07/2022 11/08/19 23 Generalized weakness 12/06/202101/17/2 022 Mass of neck 11/08/2021 11/07/2022 11/07/2022 Risk for falls 01/30/2018 03/07/2022 documented as of this encounter (statuses as of 11/08/2022) [facility] History of Past illness Narrative* Problem Noted Date Diagnosed Date Resolved Date Closed head injury 11/07/2022 11/07/2022 3 Fall 11/07/2022 11/07/2022 11/07/2022 Lesion of esophagus 11/07/2022 11/07/2022 11/08/19 23 Generalized weakness 12/06/202101/17/2 022 Mass of neck 11/08/2021 11/07/2022 11/07/2022 Risk for falls 01/30/2018 03/07/2022 documented as of this encounter (statuses as of 05/22/2023) [facility] History of Past illness Narrative* Problem Noted Date Diagnosed Date Resolved Date Closed head injury 11/07/2022 11/07/2022 3 Fall 11/07/2022 11/07/2022 11/07/2022 Lesion of esophagus 11/07/2022 11/07/2022 11/08/19 23 Generalized weakness 12/06/202101/17/2 022 Mass of neck 11/08/2021 11/07/2022 11/07/2022 Risk for falls 01/30/2018 03/07/2022 documented as of this encounter (statuses as of 06/03/2023) [facility] History of Past illness Narrative* Problem Noted Date Diagnosed Date Resolved Date Closed head injury 11/07/2022 11/07/2022 Fall 11/07/2022 11/07/2022 11/07/2022 Lesion of esophagus 11/07/2022 11/07/2022 11/08/19 Generalized weakness 12/06/2021 022 Mass of neck 11/08/2021 11/07/2022 11/07/2022 Risk for falls 01/30/2018 03/07/2022 documented as of this encounter (statuses as of 06/11/2023) [facility] History of Present illness Narrative* Shaquille Benjamin MD - 11/07/2022 1:52 PM EDT Patient presents with: Follow Up HPI: Patient presents today for office visit for follow up. No concerns today. Overall feeling well. HTN: Currently taking Nebivolol 2.5 mg along with Losartan 25 mg a day. Living in [place]. Nurses check occ. Approx weekly Denies chest pain and shortness of breath No headaches or dizziness No palpitations or syncope No edema Bp remains up at assisted living. DM: Checking sugars every morning Avg [id number] Continues on Metformin 500 mg twice a day Denies hypoglycemic spells No unexpected weight loss Due for eye exam. Every 6 months No foot numbness or pain HLD: Taking Atorvastatin 20 mg daily Wore Zio patch back in July. No results from [facility]. Last seen in May. Ambulates with walker No falls Continues on Celexa and Trazodone. Sleeping well. Moods are well. Refers to being happy and liking her new apartment. Appetite is good. Mag slightly higher. Is not compliant with taking her mag. Has seen nephro due to her electrolyte abnormalities and wondered about the possibility of low grade gitelman's. It was recommended simply to follow and supplement mag. We discussed that she only eats one meal a day and drinks carnation instant breakfast and fluids. Discussed having her limit her fluids. And eat. Will follow. Will try andincrease her mag. Does get some diarrhea. Pain is stable. Uses meds just prn. Not had to use any in a few days. Oarrs done. Needs updated pain agreement. Component Latest Ref Rng & Units 11/05/2022 Glucose 74 - 99 mg/dL 180 (H) BUN 7 - 21 mg/dL 13 Creatinine 0.58 - 0.96 mg/dL 0.81 Sodium 136 - 144 mmol/L 128 (L) Potassium 3.7 - 5.1 mmol/L 4.2 Chloride 97 - 105 mmol/L 91 (L) CO2 22 - 30 mmol/L 26 Anion Gap 9 - 18 mmol/L 11 Calcium 8.5 - 10.2 mg/dL 9.1 eGFR >=60 mL/min/1.73m 70 Magnesium 1.7 - 2.3 mg/dL 1.2 (L) MEDICATIONS: Current Outpatient Medications Medication Sig metFORMIN (GLUCOPHAGE) 500 mg tablet Take 1 tablet by mouth twice daily with meals. nebivolol (BYSTOLIC) 2.5 mg tablet Take 1 tablet by mouth once daily. losartan (COZAAR) 25 mg tablet Take 1 tablet by mouth once daily. HYDROcodone-Acetaminophen (NORCO) 7.5-325 mg per tablet Take 1 tablet by mouth every 8 hours as needed for pain for up to 41 days. Magnesium 200 mg tab As a gummy-take [address] (PROTONIX) 20 mg tablet Take 1 tablet by mouth twice daily. atorvastatin (LIPITOR) 20 mg tablet Take 1 tablet by mouth once daily. citalopram (CELEXA) 20 mg tablet Take 1 tablet by mouth once daily. traZODone (DESYREL) 50 mg tablet Take 1 tablet by mouth daily at bedtime. levothyroxine (SYNTHROID) 25 mcg tablet Take 1 tablet by mouth once daily. Take on empty stomach. For thyroid. blood sugar diagnostic (BLOOD GLUCOSE TEST) test strip Test blood sugar(s) 1 times daily. Dx: Type 2 DM - Controlled E11.9 Insulin: No BABY ASPIRIN ORAL Take 81 mg by mouth once daily. Lancets lancets Test blood sugar(s) 1 times daily. Dx: Type 2 DM - E11.8 Insulin: No cyanocobalamin (VITAMIN B-12) 1,000 mcg tab Take 1,000 mcg by mouth once daily. ubidecarenone Q-10 (COENZYME Q-10) 10 mg cap Take 50 mg by mouth twice daily. Cholecalciferol, Vitamin D3, 50 mcg (2,000 unit) cap Take by mouth. No current facility-administered medications for this visit. ALLERGIES: ALLERGIES Allergen Reactions Januvia [Sitaglipti* Hives Penicillin Hives PAST MEDICAL HISTORY Diagnosis Date Anxiety CAD (coronary artery disease) Congestive heart failure (CHF) ([facility]) Diabetic retinopathy ([facility]) Diverticulitis Esophageal stenosis GERD (gastroesophageal reflux disease) Hemorrhoids HTN (hypertension) Hyperlipidemia Low magnesium level Polyneuropathy in diabetes ([facility]) Sleep apnea SSS (sick sinus syndrome) ([facility]) Type 2 diabetes mellitus ([facility]) Zenker's diverticulum PAST SURGICAL HISTORY Procedure Laterality Date APPENDECTOMY COLONOSCOPY 05/24/2014 CORONARY ARTERY BYPASS GRAFT EGD 07/10/2017 Schatzki ring, hiatal hernia, non-bleeding gastropathy EGD W/O [facility] SPEC VARICIES INJ N/A 11/01/2021 OTHER 1958 patent ductus repair OTHER 2008 aorta repair OTHER retinal repair No family history on file. Social History Tobacco Use Smoking status: Never Smokeless tobacco: Never Vaping Use Vaping Use: Never used Substance Use Topics Alcohol use: Yes Comment: occasionally Drug use: No Reviewed current medications, allergies, past medical history, surgical history, family history andsocial history today. REVIEW OF SYSTEMS All other reviewed and negative other than HPI. VITALS: BP 188/94 Pulse 64 Ht 170.2 cm (5' 7") Wt 73.5 kg (162 lb) SpO2 99% BMI 25.37 kg/m Last 4 Encounter Wt Readings: Date: Wt: 06/06/2022 74.8 kg (165 lb) 03/07/2022 74.8 kg (165 lb) 11/08/2021 74.4 kg (164 lb) 08/09/2021 78 kg (172 lb) PHYSICAL EXAMINATION: General appearance: Well appearing, alert, in no acute distress, well-hydrated, well nourished. Skin: Skin color, texture, turgor normal, no suspicious rashes or lesions Head: Normocephalic, no masses, lesions, tenderness or abnormalities Neck: Supple, no adenopathy Lungs: Lungs clear to auscultation. No wheezing, rhonchi, rales Heart: RRR , II/ murmur, gallop, or rubs. No ectopy Abdomen: Normal abdominal exam, Abdomen soft, non-tender. Bowel sounds normal. No masses, organomegaly Extremities: No deformities, edema, skin discoloration, clubbing or cyanosis. Good capillary refill. Musculoskeletal: No joint swelling, deformity, or tenderness Peripheral pulses: Normal ASSESSMENT/PLAN: 1. Coronary artery disease involving grayling heart without angina pectoris, unspecified vessel or lesion type - ICD9: 414.01, ICD10: I25.10 (primary diagnosis) - stable. 2. Subclinical hypothyroidism - ICD9: 244.8, ICD10: E03.8 - follow labs. - LEVOTHYROXINE 25 MCG TABLET 3. Anxiety with depression - ICD9: 300.4, ICD10: F41.8 - CITALOPRAM 20 MG TABLET 4. Encounter for immunization - ICD9: V03.89, ICD10: Z23 - INFLUENZA VACCINE, PRSV FREE, AGE 65+ YR, HIGH DOSE, QUADRIVALENT (FLUZONE HIGH-DOSE) 5. Tachycardia-bradycardia (HCC) - ICD9: 427.81, ICD10: I49.5 - stable. 6. Essential hypertension - ICD9: 401.9, ICD10: I10 - Worsening control - increase dose. Call with bp in two weeks. - NEBIVOLOL 5 MG TABLET 7. ELKIN (obstructive sleep apnea) - ICD9: 327.23, ICD10: G47.33 - stable. 8. Vitamin B12 deficiency - ICD9: 266.2, ICD10: E53.8 - VITAMIN B12 BLOOD 9. GERD without esophagitis - ICD9: 530.81, ICD10: K21.9 - CBC + DIFF 10. Zenker diverticulum - ICD9: 530.6, ICD10: K22.5 - stable. 11. Type 2 diabetes mellitus with complication, without long-term current use of insulin (HCC) - ICD9: 250.90, ICD10: E11.8 - Controlled - HGB A1C 12. Bilateral carotid artery stenosis - ICD9: 433.10, 433.30, ICD10: I65.23 Up to speed 13. Hyponatremia - ICD9: 276.1, ICD10: E87.1 - stable 14. Hypomagnesemia - ICD9: 275.2, ICD10: E83.42 - follow mag. 15. Chronic thoracic back pain, unspecified back pain laterality - ICD9: 724.1, 338.29, ICD10: M54.6, G89.29 - continue meds. Call if any issues. 16. Primary osteoarthritis of both knees - ICD9: 715.16, ICD10: M17.0 - signed agreement. 17. Spinal stenosis of lumbar region, unspecified whether neurogenic claudication present - ICD9: 724.02, ICD10: M48.061 -as above. 18. Depression, unspecified depression type - ICD9: 311, ICD10: F32.A - doing better. 19. Anemia, unspecified type - ICD9: 285.9, ICD10: D64.9 - follow labs. - CBC + DIFF - IRON + TIBC Shaquille Benjamin RTO in three months and prn. [facility] Miscellaneous Notes* Telephone Encounter - Fay Dumont Ma - 11/05/2022 4:45 PM EDT [employer] message sent to pt/daughter in law Horta who wrote message in earlier about labs. Stating they will wait results. Notified them of message below from Provider and that new lab order has been placed for completion in 1 week. Fay Dumont Ma * Telephone Encounter - Shaquille Benjamin MD - 11/05/2022 4:38 PM EDT Bmp shows sodium is lower at 128. Mag is improving. Make sure not overdoing fluids. Recheck bmp in one week documented in this encounter[facility]06-24-[facility]23 Miscellaneous Notes* Telephone Encounter - Judith Siu MA - 08/18/2022 10:53 AM EDT Patient has been identified by name and date of : Yes Requested Prescriptions Pending Prescriptions Disp Refills losartan (COZAAR) 25 mg tablet 90 tablet 1 Sig: Take 1 tablet by mouth once daily. RX INSTRUCTIONS: Patient aware RX will be sent to pharmacy. No need to notify patient. Judith Siu MA Rafita 07/2022 Nov 10/2022 Last refill; 01/2022 documented in this encounterSam[facility]06-06-2023 Miscellaneous Notes* Telephone Encounter - Em Aly - 07/31/2022 2:56 PM EDT Form already completed at time of visit. [facility] informed that patient has form. Em Aly * Telephone Encounter - Em Aly - 07/31/2022 11:45 AM EDT Received H&P form from [facility]. Patient will be admitted in the next few weeks. Needs completed and faxed back. Placed on [facility]'s desk. Em Aly documented in this encounterSam[facility]06-[facility]23 History of Present illness Narrative* Shaquille Benjamin MD - 07/30/2022 1:09 PM EDT Patient presents with: Follow Up HPI: Patient presents today for office visit for follow up. Has form to complete for going to [facility]. Discussed her mag. Her weakness does not correspond to her mag levels. She is now taking mag gummies which are 200 mg 2 of them bid. Discussed increasing one a day a for a week. Saw cardiology. Wearing a monitor and did an echo No chest pain or shortness of breath. No recent falls. Uses her walker. Sodium is stable. She remains on celexa. Moods are fair. Sleeping well. Sugars are stable. Has a spot on her inside right ankle for a year. ? Granuloma annulare vs eczema. Discussed using otc hydrocortisone cream. 0arrs done. Pain meds are stable. They do help her function. She is able to better perform her ADL's See previous ov: Complains of feeling extra week yesterday. "Could hardly walk across the floor". Using lots of voltaren for pain. Her sodium is low but stable. Her mag for which she has seen nephrology is as high as it has been in a year. Is not as weak today. No fever or infection symptoms. Feeling better today. No ambition. Her moods have been "lousy". No suicidal ideation. Does not treat her sleep apnea. PHQ-9 []Expand by Default PHQ-9 Scores 03/14/2020 03/05/2022 06/03/2022 Little interest or pleasure in doing things More than half the days More than half the days Nearly every day Feeling down, depressed, or hopeless More than half the days Nearly every day Nearly every day Trouble falling or staying asleep, or sleeping too much Not at all Not at all Not at all Feeling tired or having little energy Nearly every day Nearly every day Nearly every day Poor appetite or overeating Not at all More than half the days Several days Feeling bad about yourself - or that you are a failure or have let yourself or your family down Several days Not at all Not at all Trouble concentrating on things, such as reading the newspaper or watching television Not at all Not at all Not at all Moving or speaking so slowly that other people could have noticed. Or the opposite - being so fidgety or restless that you have been moving around a lot more than usual Not at all Not at all Not at all Thoughts that you would be better off , or of hurting yourself in some way Not at all Not at all Not at all PHQ-9 Score 8 10 10 HTN: Patient is compliant with meds Yes Monitors bp at home: No. Denies side effects: Yes. Chest pain: No. Dyspnea: No. Edema: No. Palpitations: No. Syncope: No. Headache: No. Dizziness: No. DM: Reports overall feeling well. Medication side effects: No. Home sugar check frequency/results:daily in the morning 120-125 Hypoglycemic spells: No. Watching diet: No. Unexpected weight loss: No. Polyuria, polydipsia: No. Vision Changes: No. Foot lesions or numbness or pain: No. Last a1c was good. Continues on pain meds. Oarrs done. Aware of risks and benefits. No misuse or abuse. Has been on that for some time. LAB: Component Latest Ref Rng & Units 07/25/2022 Protein, Total 6.3 - 8.0 g/dL 7.0 Albumin 3.9 - 4.9 g/dL 4.0 Calcium 8.5 - 10.2 mg/dL 9.3 Bilirubin, Total 0.2 - 1.3 mg/dL 0.5 Alkaline Phosphatase 34 - 123 U/L 54 AST 13 - 35 U/L 12 (L) ALT 7 - 38 U/L 5 (L) Glucose 74 - 99 mg/dL 117 (H) BUN 7 - 21 mg/dL 11 Creatinine 0.58 - 0.96 mg/dL 0.85 Sodium 136 - 144 mmol/L 130 (L) Potassium 3.7 - 5.1 mmol/L 4.0 Chloride 97 - 105 mmol/L 94 (L) CO2 22 - 30 mmol/L 27 Anion Gap 9 - 18 mmol/L 9 eGFR >=60 mL/min/1.73m 66 Cholesterol, Total <200 mg/dL 147 Triglyceride <150 mg/dL 68 HDL Cholesterol >39 mg/dL 77 Non HDL Cholesterol <130 mg/dL 70 Fasting Time hrs 12 VLDL Cholesterol <30 mg/dL 14 TC:HDL Ratio <5.10 1.91 LDL Cholesterol <100 mg/dL 56 LDL:HDL Ratio <2.54 0.73 Phencyclidine Negative Negative Benzodiazepines Urine Negative Negative Cocaine Urine Negative Negative Amphetamines Negative Negative Cannabinoids, Urine Negative Negative Opiates Negative Negative Barbiturates Negative Negative Ethanol, Urine <11 mg/dL <11 Oxycodone, Urine Negative Negative Creatinine, Ur Random (UCRR) 20.0 - 300.0 mg/dL 76.1 Albumin, Urine Random mg/L 39.6 Albumin/Creat Ratio <30 mg/g 52 (H) Hemoglobin A1C 4.3 - 5.6 % 6.2 (H) Estimated Average Glucose mg/dL 131 TSH 0.270 - 4.200 mIU/L 3.580 Magnesium 1.7 - 2.3 mg/dL 1.1 (L) MEDICATIONS: Current Outpatient Medications Medication Sig pantoprazole DR (PROTONIX) 20 mg tablet Take 1 tablet by mouth twice daily. HYDROcodone-Acetaminophen (NORCO) 7.5-325 mg per tablet Take 1 tablet by mouth every 8 hours as needed for pain for up to 41 days. atorvastatin (LIPITOR) 20 mg tablet Take 1 tablet by mouth once daily. nebivolol (BYSTOLIC) 2.5 mg tablet Take 1 tablet by mouth once daily. metFORMIN (GLUCOPHAGE) 500 mg tablet Take 1 tablet by mouth twice daily with meals. losartan (COZAAR) 25 mg tablet Take 1 tablet by mouth once daily. citalopram (CELEXA) 20 mg tablet Take 1 tablet by mouth once daily. traZODone (DESYREL) 50 mg tablet Take 1 tablet by mouth daily at bedtime. levothyroxine (SYNTHROID) 25 mcg tablet Take 1 tablet by mouth once daily. Take on empty stomach. For thyroid. blood sugar diagnostic (BLOOD GLUCOSE TEST) test strip Test blood sugar(s) 1 times daily. Dx: Type 2 DM - Controlled E11.9 Insulin: No BABY ASPIRIN ORAL Take 81 mg by mouth once daily. Lancets lancets Test blood sugar(s) 1 times daily. Dx: Type 2 DM - E11.8 Insulin: No cyanocobalamin (VITAMIN B-12) 1,000 mcg tab Take 1,000 mcg by mouth once daily. ubidecarenone Q-10 (COENZYME Q-10) 10 mg cap Take 50 mg by mouth twice daily. Cholecalciferol, Vitamin D3, 50 mcg (2,000 unit) cap Take by mouth. No current facility-administered medications for this visit. ALLERGIES: ALLERGIES Allergen Reactions Januvia [Sitaglipti* Hives Penicillin Hives PAST MEDICAL HISTORY Diagnosis Date Anxiety CAD (coronary artery disease) Congestive heart failure (CHF) (HCC) Diabetic retinopathy (HCC) Diverticulitis Esophageal stenosis GERD (gastroesophageal reflux disease) Hemorrhoids HTN (hypertension) Hyperlipidemia Low magnesium level Polyneuropathy in diabetes (HCC) Sleep apnea SSS (sick sinus syndrome) (HCC) Type 2 diabetes mellitus (HCC) Zenker's diverticulum PAST SURGICAL HISTORY Procedure Laterality Date APPENDECTOMY COLONOSCOPY 05/24/2014 CORONARY ARTERY BYPASS GRAFT EGD 07/10/2017 Schatzki ring, hiatal hernia, non-bleeding gastropathy EGD W/O [facility] SPEC VARICIES INJ N/A 11/01/2021 OTHER 1958 patent ductus repair OTHER 2009 aorta repair OTHER retinal repair No family history on file. Social History Tobacco Use Smoking status: Never Smokeless tobacco: Never Vaping Use Vaping Use: Never used Substance Use Topics Alcohol use: Yes Comment: occasionally Drug use: No Reviewed current medications, allergies, past medical history, surgical history, family history andsocial history today. REVIEW OF SYSTEMS No gi issues. All other reviewed and negative other than HPI. HEALTH MAINTENANCE: Reviewed health maintenance issues today and recommended the following in detail. DIABETIC FOOT EXAM due on 05/11/2022 VITALS: BP 138/72 Pulse 74 SpO2 98% Last 4 Encounter Wt Readings: Date: Wt: 06/06/2022 74.8 kg (165 lb) 03/07/2022 74.8 kg (165 lb) 11/08/2021 74.4 kg (164 lb) 08/09/2021 78 kg (172 lb) PHYSICAL EXAMINATION: General appearance: Well appearing, alert, in no acute distress, well-hydrated, well nourished. Skin: Skin color, texture, turgor normal, no suspicious rashes or lesions Head: Normocephalic, no masses, lesions, tenderness or abnormalities Eyes: Anicteric sclera. Pupils are equally round and reactive to light. Extraocular movements are intact. Lungs: Lungs clear to auscultation. No wheezing, rhonchi, rales Heart: RRR without murmur, gallop, or rubs. No ectopy Abdomen: Normal abdominal exam, Abdomen soft, non-tender. Bowel sounds normal. No masses, organomegaly Extremities: No deformities, edema, skin discoloration, clubbing or cyanosis. Good capillary refill. Musculoskeletal: No joint swelling, deformity, or tenderness Feet:Shoes and socks removed, No deformities, ulcers, calluses, normal distal pulses, and slightly decreased to monofilament. ASSESSMENT/PLAN: 1. Hyponatremia - ICD9: 276.1, ICD10: E87.1 (primary diagnosis) - continue meds. Follow lasb. 2. Hypomagnesemia - ICD9: 275.2, ICD10: E83.42 - increase mag and follow. - MAGNESIUM 200 MG TABLET 3. Acute midline thoracic back pain - ICD9: 724.1, ICD10: M54.6 - meds help. - HYDROCODONE 7.5 MG-ACETAMINOPHEN 325 MG TABLET 4. Osteoarthritis of both knees, unspecified osteoarthritis type - ICD9: 715.96, ICD10: M17.0 - as above - HYDROCODONE 7.5 MG-ACETAMINOPHEN 325 MG TABLET 5. Spinal stenosis of lumbar region, unspecified whether neurogenic claudication present - ICD9: 724.02, ICD10: M48.061 - stable. 6. Vitamin B12 deficiency - ICD9: 266.2, ICD10: E53.8 - follow labs. 7. GERD without esophagitis - ICD9: 530.81, ICD10: K21.9 - stable 8. Zenker diverticulum - ICD9: 530.6, ICD10: K22.5 - stable. 9. Coronary artery disease involving grayling heart without angina pectoris, unspecified vessel or lesion type - ICD9: 414.01, ICD10: I25.10 Continue current meds. 10. Essential hypertension - ICD9: 401.9, ICD10: I10 - Controlled - Continue current medications 11. Hyperlipidemia, mixed - ICD9: 272.2, ICD10: E78.2 - Controlled 12. 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 Depression, unspecified depression type - ICD9: 311, ICD10: F32.A - follow progress. 14. Type 2 diabetes mellitus with complication, without long-term current use of insulin (HCC) - ICD9: 250.90, ICD10: E11.8 - Controlled - Continue current medications 15. Subclinical hypothyroidism - ICD9: 244.8, ICD10: E03.8 - stable. Shaquille Benjamin documented [facility] encounter[facility]05-30-[facility]23 Miscellaneous Notes* Telephone Encounter - Shaquille Benjamin MD - 07/24/2022 2:49 PM EDT t documented in this encounterSam[facility]04-12-2023 History of Present illness Narrative* Shaquille Benjamin MD - 06/06/2022 1:30 PM EDT No chief complaint on file. HPI: Patient presents today for office visit for followup. Complains of feeling extra week yesterday. "Could hardly walk across the floor". Using lots of voltaren for pain. Her sodium is low but stable. Her mag for which she has seen nephrology is as high as it has been in a year. Is not as weak today. No fever or infection symptoms. Feeling better today. No ambition. Her moods have been "lousy". No suicidal ideation. Does not treat her sleep apnea. PHQ-9 PHQ-9 Scores 03/14/2020 03/05/2022 06/03/2022 Little interest or pleasure in doing things More than half the days More than half the days Nearly every day Feeling down, depressed, or hopeless More than half the days Nearly every day Nearly every day Trouble falling or staying asleep, or sleeping too much Not at all Not at all Not at all Feeling tired or having little energy Nearly every day Nearly every day Nearly every day Poor appetite or overeating Not at all More than half the days Several days Feeling bad about yourself - or that you are a failure or have let yourself or your family down Several days Not at all Not at all Trouble concentrating on things, such as reading the newspaper or watching television Not at all Not at all Not at all Moving or speaking so slowly that other people could have noticed. Or the opposite - being so fidgety or restless that you have been moving around a lot more than usual Not at all Not at all Not at all Thoughts that you would be better off , or of hurting yourself in some way Not at all Not at all Not at all PHQ-9 Score 8 10 10 HTN: Patient is compliant with meds Yes Monitors bp at home: No. Denies side effects: Yes. Chest pain: No. Dyspnea: No. Edema: No. Palpitations: No. Syncope: No. Headache: No. Dizziness: No. DM: Reports overall feeling well. Medication side effects: No. Home sugar check frequency/results:daily in the morning 120-125 Hypoglycemic spells: No. Watching diet: No. Unexpected weight loss: No. Polyuria, polydipsia: No. Vision Changes: No. Foot lesions or numbness or pain: No. Last a1c was good. Continues on pain meds. Oarrs done. Aware of risks and benefits. No misuse or abuse. Has been on that for some time. Component Latest Ref Rng & Units 06/04/2022 WBC 3.70 - 11.00 k/uL 6.26 RBC 3.90 - 5.20 m/uL 4.24 Hemoglobin 11.5 - 15.5 g/dL 11.0 (L) Hematocrit 36.0 - 46.0 % 35.0 (L) MCV 80.0 - 100.0 fL 82.5 MCH 26.0 - 34.0 pg 25.9 (L) MCHC 30.5 - 36.0 g/dL 31.4 RDW-CV 11.5 - 15.0 % 15.0 Platelet Count 150 - 400 k/uL 207 MPV 9.0 - 12.7 fL 9.1 Neut% % 66.0 Abs Neut (ANC) 1.45 - 7.50 k/uL 4.13 Lymph% % 20.9 Abs Lymph 1.00 - 4.00 k/uL 1.31 Bee% % 9.6 Abs Bee <0.87 k/uL 0.60 Eosin% % 2.6 Abs Eosin <0.46 k/uL 0.16 Baso% % 0.6 Abs Baso <0.11 k/uL 0.04 Immature Gran % % 0.3 IMMATURE GRANS (ABS) <0.10 k/uL <0.03 NRBC /100 WBC 0.0 Absolute nRBC <0.01 k/uL <0.01 DTYPE Auto Glucose 74 - 99 mg/dL 158 (H) BUN 7 - 21 mg/dL 11 Creatinine 0.58 - 0.96 mg/dL 0.88 Sodium 136 - 144 mmol/L 130 (L) Potassium 3.7 - 5.1 mmol/L 4.1 Chloride 97 - 105 mmol/L 92 (L) CO2 22 - 30 mmol/L 26 Anion Gap 9 - 18 mmol/L 12 Calcium 8.5 - 10.2 mg/dL 9.6 eGFR >=60 mL/min/1.73m 64 Iron 41 - 186 ug/dL 43 TIBC 232 - 386 ug/dL 404 (H) Transferrin Saturation 15.0 - 57.0 % 10.6 (L) Vitamin B12 232 - 1,245 pg/mL 390 Magnesium 1.7 - 2.3 mg/dL 1.3 (L) MEDICATIONS: Current Outpatient Medications Medication Sig HYDROcodone-Acetaminophen (NORCO) 7.5-325 mg per tablet Take 1 tablet by mouth every 8 hours as needed for pain for up to 41 days. atorvastatin (LIPITOR) 20 mg tablet Take 1 tablet by mouth once daily. nebivolol (BYSTOLIC) 2.5 mg tablet Take 1 tablet by mouth once daily. pantoprazole DR (PROTONIX) 40 mg tablet Take 40 mg by mouth once daily. metFORMIN (GLUCOPHAGE) 500 mg tablet Take 1 tablet by mouth twice daily with meals. losartan (COZAAR) 25 mg tablet Take 1 tablet by mouth once daily. citalopram (CELEXA) 20 mg tablet Take 1 tablet by mouth once daily. traZODone (DESYREL) 50 mg tablet Take 1 tablet by mouth daily at bedtime. levothyroxine (SYNTHROID) 25 mcg tablet Take 1 tablet by mouth once daily. Take on empty stomach. For thyroid. blood sugar diagnostic (BLOOD GLUCOSE TEST) test strip Test blood sugar(s) 1 times daily. Dx: Type 2 DM - Controlled E11.9 Insulin: No magnesium oxide (MAGOX) 400 mg (241.3 mg magnesium) tablet Take 1 tablet by mouth twice daily. BABY ASPIRIN ORAL Take 81 mg by mouth once daily. Lancets lancets Test blood sugar(s) 1 times daily. Dx: Type 2 DM - E11.8 Insulin: No cyanocobalamin (VITAMIN B-12) 1,000 mcg tab Take 1,000 mcg by mouth once daily. ubidecarenone Q-10 (COENZYME Q-10) 10 mg cap Take 50 mg by mouth twice daily. Cholecalciferol, Vitamin D3, 50 mcg (2,000 unit) cap Take by mouth. No current facility-administered medications for this visit. 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 Social History Tobacco Use Smoking status: Never Smokeless tobacco: Never Vaping Use Vaping Use: Never used Substance Use Topics Alcohol use: Yes Comment: occasionally Drug use: No Reviewed current medications, allergies, past medical history, surgical history, family history andsocial history today. REVIEW OF SYSTEMS GI: No nausea, vomiting, or diarrhea : Negative All other reviewed and negative other than HPI. VITALS: BP 142/72 Pulse 78 Wt 74.8 kg (165 lb) SpO2 97% BMI 25.84 kg/m Bp is acceptable for her age. Last 4 Encounter Wt Readings: Date: Wt: 03/07/2022 74.8 kg (165 lb) 11/08/2021 74.4 kg (164 lb) 08/09/2021 78 kg (172 lb) 05/11/2021 77.4 kg (170 lb 9.6 oz) PHYSICAL EXAMINATION: General appearance: Well appearing, alert, in no acute distress, well-hydrated, well nourished. Skin: Skin color, texture, turgor normal, no suspicious rashes or lesions Head: Normocephalic, no masses, lesions, tenderness or abnormalities Eyes: Anicteric sclera. Pupils are equally round and reactive to light. Extraocular movements are intact. Lungs: Lungs clear to auscultation. No wheezing, rhonchi, rales Heart: RRR without murmur, gallop, or rubs. No ectopy Abdomen: Normal abdominal exam, Abdomen soft, non-tender. Bowel sounds normal. No masses, organomegaly Extremities: No deformities, edema, skin discoloration, clubbing or cyanosis. Good capillary refill. Musculoskeletal: No joint swelling, deformity, or tenderness ASSESSMENT/PLAN: 1. Essential hypertension - ICD9: 401.9, ICD10: I10 (primary diagnosis) - acceptable. range - Goal of BP <130/80 2. 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 3. 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) - ICD9: 402.91, 428.9, ICD10: I11.0 - doing well. 4. ELKIN (obstructive sleep apnea) - ICD9: 327.23, ICD10: G47.33 - not treating. 5. Vitamin B12 deficiency - ICD9: 266.2, ICD10: E53.8 - stable. 6. GERD without esophagitis - ICD9: 530.81, ICD10: K21.9 - doing well. 7. Depression, unspecified depression type - ICD9: 311, ICD10: F32.A - Discussed risks and benefits of new medication with the patient. Advised them to call if any sideeffects or questions. - follow sodium while on it. - BUPROPION XL 150 MG TAB 8. Hyponatremia - ICD9: 276.1, ICD10: E87.1 - labs in six weeks - COMP METABOLIC PANEL 9. Hypomagnesemia - ICD9: 275.2, ICD10: E83.42 - labs in six weeks. - MAGNESIUM BLD 10. Zenker diverticulum - ICD9: 530.6, ICD10: K22.5 11. Hyperlipidemia, mixed - ICD9: 272.2, ICD10: E78.2 - good control - Continue current medication. - LIPID PANEL BASIC 12. Bilateral carotid artery stenosis - ICD9: 433.10, 433.30, ICD10: I65.23 - recheck 13. Type 2 diabetes mellitus with complication, without long-term current use of insulin (HCC) - ICD9: 250.90, ICD10: E11.8 - re check labs next visit. - HGB A1C 14. Subclinical hypothyroidism - ICD9: 244.8, ICD10: E03.8 - Instructed patient on importance of taking on an empty stomach either first thing in the morning or at bedtime. - TSH BLD Shaquille Benjamin MD [facility] Miscellaneous Notes* Telephone Encounter - Jeanette Gomez - 05/14/2022 10:09 AM EDT Patient has been identified by name and date of : Yes Requested Prescriptions Pending Prescriptions Disp Refills HYDROcodone-Acetaminophen (NORCO) 7.5-325 mg per tablet 90 tablet 0 Sig: Take 1 tablet by mouth every 8 hours as needed for pain for up to 41 days. RX INSTRUCTIONS: Patient aware RX will be sent to pharmacy. No need to notify patient. Jeanette Gomez documented [facility] this [facility]02-07-[facility]23 Miscellaneous Notes* Telephone Encounter - Rina Baez - 04/03/2022 12:19 PM EST Patient has been identified by name and date of : Yes Requested Prescriptions Pending Prescriptions Disp Refills atorvastatin (LIPITOR) 20 mg tablet 90 tablet 3 Sig: Take 1 tablet by mouth once daily. RX INSTRUCTIONS: Please send today, she has someone to pick it up today before they go on vacation. Patient aware RX will be sent to pharmacy. No need to notify patient. Rina Baez documented in this [facility]01-[facility]23 History of Present illness Narrative* Shaquille Benjamin MD - 03/07/2022 1:54 PM EST Patient presents with: Fall Diarrhea: HPI: Patient presents today for office visit for follow up. Fell on 02/16/22 while at home. Was trying to open door and handle broke off causing her to fall backwards. Metal handle hit her in lower abdomen. Celso her back. Still having soreness. Did hit her head. No LOC. Still some pain in back. Does not feel is bad enough to xray. No numbness or focal numbness. Pain meds are definitely helping to have her function at home. Uses prn. Aware of risks and benefits. Oarrs done. Intermittent diarrhea. Claims either constipated or has diarrhea. No real changes. Declines colonoscopy. Has eliminated lactose which may have initially helped. Diarrhea predates metformin HTN: Does not monitor BP. Denies dizziness. No chest pain or shortness of breath Sleeping well. Tolerating Trazodone. Claims once in awhile she will not sleep well but 95% of the time sleeps through the night. GASTRO: Increased Pantoprazole 40 mg to twice daily for 30 days only. Denies gagging and choking on food. Anemia has been stable. Did have egd in the past. DM: Checks sugars daily. Stable. Does not watch diet. States does not have much of an appetite but she eats what she wants No vision changes. Due for eye exam. Hld: No myalgias. PSYCH: Feeling good "most of the time" emotionally Sleeping good. Kids are involved in her life and help out a lot States she can get lonesome Lytes are stable. Has seen nephro for the same. Supplements. She is not taking her mag regularly as much as she could. Component Latest Ref Rng & Units 03/05/2022 WBC 3.70 - 11.00 k/uL 7.42 RBC 3.90 - 5.20 m/uL 4.32 Hemoglobin 11.5 - 15.5 g/dL 11.1 (L) Hematocrit 36.0 - 46.0 % 35.7 (L) MCV 80.0 - 100.0 fL 82.6 MCH 26.0 - 34.0 pg 25.7 (L) MCHC 30.5 - 36.0 g/dL 31.1 RDW-CV 11.5 - 15.0 % 15.5 (H) Platelet Count 150 - 400 k/uL 240 MPV 9.0 - 12.7 fL 8.9 (L) Neut% % 73.0 Abs Neut (ANC) 1.45 - 7.50 k/uL 5.42 Lymph% % 17.0 Abs Lymph 1.00 - 4.00 k/uL 1.26 Bee% % 7.3 Abs Bee <0.87 k/uL 0.54 Eosin% % 1.8 Abs Eosin <0.46 k/uL 0.13 Baso% % 0.5 Abs Baso <0.11 k/uL 0.04 Immature Gran % % 0.4 IMMATURE GRANS (ABS) <0.10 k/uL 0.03 NRBC /100 WBC 0.0 Absolute nRBC <0.01 k/uL <0.01 DTYPE Auto Protein, Total 6.3 - 8.0 g/dL 7.0 Albumin 3.9 - 4.9 g/dL 4.1 Calcium 8.5 - 10.2 mg/dL 9.6 Bilirubin, Total 0.2 - 1.3 mg/dL 0.6 Alkaline Phosphatase 34 - 123 U/L 63 AST 13 - 35 U/L 15 ALT 7 - 38 U/L 5 (L) Glucose 74 - 99 mg/dL 138 (H) BUN 7 - 21 mg/dL 12 Creatinine 0.58 - 0.96 mg/dL 0.80 Sodium 136 - 144 mmol/L 131 (L) Potassium 3.7 - 5.1 mmol/L 4.1 Chloride 97 - 105 mmol/L 93 (L) CO2 22 - 30 mmol/L 27 Anion Gap 9 - 18 mmol/L 11 eGFR >=60 mL/min/1.73m 71 Hemoglobin A1C 4.3 - 5.6 % 6.4 (H) Estimated Average Glucose mg/dL 137 Magnesium 1.7 - 2.3 mg/dL 1.1 (L) TSH 0.270 - 4.200 mIU/L 3.440 MEDICATIONS: Current Outpatient Medications Medication Sig HYDROcodone-Acetaminophen (NORCO) 7.5-325 mg per tablet Take 1 tablet by mouth every 8 hours as needed for pain for up to 41 days. losartan (COZAAR) 25 mg tablet Take 1 tablet by mouth once daily. citalopram (CELEXA) 20 mg tablet Take 1 tablet by mouth once daily. traZODone (DESYREL) 50 mg tablet Take 1 tablet by mouth daily at bedtime. levothyroxine (SYNTHROID) 25 mcg tablet Take 1 tablet by mouth once daily. Take on empty stomach. For thyroid. blood sugar diagnostic (BLOOD GLUCOSE TEST) test strip Test blood sugar(s) 1 times daily. Dx: Type 2 DM - Controlled E11.9 Insulin: No metFORMIN (GLUCOPHAGE) 500 mg tablet Take 1 tablet by mouth twice daily with meals. nebivolol (BYSTOLIC) 2.5 mg tablet Take 1 tablet by mouth once daily. magnesium oxide (MAGOX) 400 mg (241.3 mg magnesium) tablet Take 1 tablet by mouth twice daily. pantoprazole DR (PROTONIX) 20 mg tablet Take 1 tablet by mouth twice daily before meals. (Patient taking differently: Take 40 mg by mouth twice daily before meals.) atorvastatin (LIPITOR) 20 mg tablet Take 1 tablet by mouth once daily. BABY ASPIRIN ORAL Take 81 mg by mouth once daily. Lancets lancets Test blood sugar(s) 1 times daily. Dx: Type 2 DM - E11.8 Insulin: No cyanocobalamin (VITAMIN B-12) 1,000 mcg tab Take 1,000 mcg by mouth once daily. ubidecarenone Q-10 (COENZYME Q-10) 10 mg cap Take 50 mg by mouth twice daily. Cholecalciferol, Vitamin D3, 50 mcg (2,000 unit) cap Take by mouth. No current facility-administered medications for this visit. ALLERGIES: ALLERGIES Allergen Reactions Januvia [Sitaglipti* Hives Penicillin Hives PAST MEDICAL HISTORY Diagnosis Date Anxiety CAD (coronary artery disease) Congestive heart failure (CHF) ([facility]) Diabetic retinopathy ([facility]) Diverticulitis Esophageal stenosis GERD (gastroesophageal reflux disease) Hemorrhoids HTN (hypertension) Hyperlipidemia Low magnesium level Polyneuropathy in diabetes (HCC) Sleep apnea SSS (sick sinus syndrome) ([facility]) Type 2 diabetes mellitus (HCC) Zenker's diverticulum PAST SURGICAL HISTORY Procedure Laterality Date APPENDECTOMY COLONOSCOPY 05/24/2014 CORONARY ARTERY BYPASS GRAFT EGD 07/10/2017 Schatzki ring, hiatal hernia, non-bleeding gastropathy EGD W/O [facility] SPEC VARICIES INJ N/A 11/01/2021 OTHER 1958 patent ductus repair OTHER 2008 aorta repair OTHER retinal repair No family history on file. Social History Tobacco Use Smoking status: Never Smokeless tobacco: Never Vaping Use Vaping Use: Never used Substance Use Topics Alcohol use: Yes Comment: occasionally Drug use: No Reviewed current medications, allergies, past medical history, surgical history, family history andsocial history today. REVIEW OF SYSTEMS All other reviewed and negative other than HPI. Reminded for eye exam. VITALS: BP 116/58 Pulse 64 Ht 170.2 cm (5' 7") Wt 74.8 kg (165 lb) SpO2 98% BMI 25.84 kg/m Last 4 Encounter Wt Readings: Date: Wt: 11/08/2021 74.4 kg (164 lb) 08/09/2021 78 kg (172 lb) 05/11/2021 77.4 kg (170 lb 9.6 oz) 2021 75.3 kg (166 lb) PHYSICAL EXAMINATION: General appearance: Well appearing, alert, in no acute distress, well-hydrated, well nourished. Skin: Skin color, texture, turgor normal, no suspicious rashes or lesions Head: Normocephalic, no masses, lesions, tenderness or abnormalities Lungs: Lungs clear to auscultation. No wheezing, rhonchi, rales Heart: RRR, II/ murmur. Normal s1 and s2 Abdomen: Normal abdominal exam, Abdomen soft, non-tender. Bowel sounds normal. No masses, organomegaly Extremities: No deformities, edema, skin discoloration, clubbing or cyanosis. Good capillary refill. ASSESSMENT/PLAN: 1. Type 2 diabetes mellitus with complication, without long-term current use of insulin (HCC) - ICD9: 250.90, ICD10: E11.8 (primary diagnosis) Controlled. - Continue current medications - METFORMIN 500 MG TABLET 2. Encounter for immunization - ICD9: V03.89, ICD10: Z23 - PNEUMOCOCCAL VACCINE (PREVNAR 20) 3. 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 Hyperlipidemia, mixed - ICD9: 272.2, ICD10: E78.2 5. Coronary artery disease involving grayling heart without angina pectoris, unspecified vessel or lesion type - ICD9: 414.01, ICD10: I25.10 - stable 6. Chronic thoracic back pain, unspecified back pain laterality - ICD9: 724.1, 338.29, ICD10: M54.6, G89.29 - doing well. Continue meds. 7. ELKIN (obstructive sleep apnea) - ICD9: 327.23, ICD10: G47.33 - stable. 8. Vitamin B12 deficiency - ICD9: 266.2, ICD10: E53.8 - VITAMIN B12 BLOOD 9. 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 Hyponatremia - ICD9: 276.1, ICD10: E87.1 - BASIC METABOLIC PNL 11. Hypomagnesemia - ICD9: 275.2, ICD10: E83.42 - MAGNESIUM BLD 12. Subclinical hypothyroidism - ICD9: 244.8, ICD10: E03.8 - tsh was good. 13. Bilateral carotid artery stenosis - ICD9: 433.10, 433.30, ICD10: I65.23 - will order next ov. 14. Chronic anemia - ICD9: 285.9, ICD10: D64.9 - CBC + DIFF - IRON + TIBC Shaquille Benjamin RTO in three months. documented [facility] this [facility]12-27-2022 Miscellaneous Notes* Telephone Encounter - Estefani Lane LPN - 02/20/2022 10:53 AM EST Patient has been identified by name and date of : YesPatient phones for refill(s): Requested Prescriptions Pending Prescriptions Disp Refills HYDROcodone-Acetaminophen (NORCO) 7.5-325 mg per tablet 90 tablet 0 Sig: Take 1 tablet by mouth every 8 hours as needed for pain for up to 41 days. Date of last office visit in primary care: 11/08/2021 Please advise. Thank you. Estefani Lane LPN documented in this [facility]12-27-2022 Miscellaneous Notes* Telephone Encounter - Estefani Lane LPN - 02/20/2022 10:52 AM EST Patient has been identified by name and date of : YesPatient phones for refill(s): Requested Prescriptions Pending Prescriptions Disp Refills losartan (COZAAR) 25 mg tablet 90 tablet 1 Sig: Take 1 tablet by mouth once daily. Date of last office visit in primary care: 11/08/21 Please advise. Thank you. Estefani Lane LPN documented in this [facility]11-17-2022 Miscellaneous Notes* Telephone Encounter - Estefani Lane LPN - 01/11/2022 10:59 AM EST Refills remain at pharmacy. Patient notified. * Telephone Encounter - Kristel Naik [facility] - 01/11/2022 10:18 AM EST Patient has been identified by name and date of : Yes Last office visit in this department: 11/08/2021 RX INSTRUCTIONS: Patient aware RX will be sent to pharmacy. No need to notify patient. Patient phones requesting refills as follows: Requested Prescriptions Pending Prescriptions Disp Refills blood sugar diagnostic (BLOOD GLUCOSE TEST) test strip 50 Strip 11 Sig: Test blood sugar(s) 1 times daily. Dx: Type 2 DM - Controlled E11.9 Insulin: No Please review and advise. Kristel Naik Pss documented in this [facility]10-12-2022 History of Present illness Narrative* Larissa Ellis, PT - 12/06/2021 3:05 PM EDT Episode Visit Count: 1 Therapist That Will Accept/Oversee The Plan Of Care: Larissa Ellis PT Start of Care Date: 12/06/21 Onset Date: 09/20/17 Plan of Care Certification Date: 12/06/21 Next Certification Due Date: 01/17/22 REHABILITATION AND SPORTS THERAPY PHYSICAL THERAPY EVALUATION PLAN OF CARE: Assessment: Cyndi Mejia presents with chief complaint of decreased strength, endurance and kneepain that interferes with walking in the community;cooking . She presents with impairments in balance, gait, independence in exercise, overall function, range of motion, and strength . PROMIS (Patient-Reported Outcomes Measurement Information System) scores were reviewed and physical function domain identified as a rehabilitation concern. Prognosis for therapy is Fair due to: clinical presentation;multiple co- morbidities;chronic nature of impairments . Pt with low tolerance to activities with right knee and will have to monitor pain response to exs She will benefit from skilled therapy services to meet the goals established for this plan of care as noted below. Goals for Episode of Care: created on 12/06/21 through 01/17/22 [place] in home exercise program. Patient will increase active ROM of knees to 95 -100 degrees flexion to allow pt to to improve performance of ADLs. Patient will demonstrate increase in LE strength to 4-/5/5 during manual muscle testing in order toimprove function for basic self-care tasks and home management tasks. Patient will Improve Timed Up and Go to 25-28 seconds to demonstrate decreased risk of falling. Patient will increase balance to 10 sec semitandem /Normal with static standing balance and allow patient to demonstrate appropriate balance strategies to reduce risk for falls. Patient Goals: be able to walk better, longer. Planned Interventions, Frequency, and Duration: Current Frequency: 2x/week Duration: 4 weeks Total Number of Visits Planned: 8 Planned Treatment Interventions: Therapeutic exercise (63411);Neuromuscular re- education (20195);Self-intermediate management (38028);Patient/Family/Caregiver Education;General Conditioning PLAN FOR NEXT VISIT: Will add scapular retraction , TA exs seated, consider scifit stepper Patient demonstrates good understanding of plan of care and treatment. The above goals and plan of care were discussed and agreed upon by patient/family. SUBJECTIVE: Cyndi Mejia is a 86 year old female seen today for Pt reports that she has noticed decreased strength and endurance. Uses rollator all the time . Pt notes legs hurt most of the time. Takes one pain pill a day. Knee area primarily. Pain is greater in right knee which has been bad fora long time Patient Goals: be able to walk better, longer. Functional Limitations: walking in the community;cooking Prior Level of Function: Independent without limitations Relevant History Employment: Retired Home Environment Patient Lives With: Self/Alone Home Type: Apt/Condo Entry To Home: No Stairs Equipment Owned: Shower Chair;Grab Bars-Shower Intake Information: Prescription present Previous Treatment: Self prescribed exercises Falls Interview: No positive findings with falls interview Pain: Pain Pain Level: 6 Pain Location: Knee - Left;Knee - Right Description: Aching Frequency: Continuous Post Treatment Pain Post Treatment Pain Level: Worse (right knee more painful) Post Treatment Pain Location: Knee - Right Post Treatment Pain Description: Aching PROMIS Scales Higher is Better 02/08/2021 05/09/2021 12/04/2021 Phys Func - Score - - 35 (moderate dysfunction) Phys Func - Percentile - - 7 % GH Physical - Score 29.6 (Poor) 42.3 (Good) 34.9 (Poor) GH Physical - Percentile 2 % 22 % 7 % GH Mental - Score 43.5 (Good) 38.8 (Fair) 41.1 (Good) GH Mental - Percentile 26 % 13 % 19 % Self-Eff Symptom - Score - - 42 (Average) Self-Eff Symptom - Percentile - - 21 % T-scores: mean of general population = 50. 5 points is clinically meaningfully difference Percentiles provide an indication of how the patient's score ranks in relation to the general population. Higher percentile rankings indicate better function/quality of life. 50th percentile is the average of the general population and indicates half of respondents had a worse score. T-scores: mean of general population = 50. 5 points is clinically meaningfully difference Percentiles provide an indication of how the patient's score ranks in relation to the general population. Higher percentile rankings indicate better function/quality of life. 50th percentile is the average of the general population and indicates half of respondents had a worse score. OBJECTIVE MEASURES WITH LEVEL OF FUNCTION: LE Strength R Hip Flexion (L2): 3+/5 R Knee Extension (L3): 3/5 R Knee Flexion: 3+/5 R Ankle Dorsiflexion (L4): (limited ROM with PF contracture) L Hip Flexion (L2): 3+/5 L Knee Extension (L3): 4-/5 L Knee Flexion: 4/5 L Ankle Dorsiflexion (L4): 3+/5 (PF contracture long standing) Functional Strength Functional Strength: use of hands for sit to stand Mobility Supine To Sit: Independent Sit to Supine: Independent Sit To Stand: (use of hands with difficulty) Gait Weight Bearing Status: FWB Gait: Independent Gait Device: Rollator Gait Deviations: Right Lower Extremity Gait Deviations Right Lower Extremity: Hyperextension during stance;Stance time decreased Functional Performance Test Results 30 Second Chair Stand Test: 0 reps Timed Up and Go (sec): 33 sec (use of rollator) 4 Stage Balance Test Narrow base of support (sec): 10 sec (required assist) Semi-tandem base of support (sec): (unable) Education: Education Learning Preferences: Demonstration;Explanation;Performance;Printed Materials Barriers: None Learning/educational needs: Home exercise program;Plan of Care Education Provided: Yes, see treatment interventions for education provided Education Provided To: Patient Education Mode/Type: Demonstration;Explanation/Discussion;Literature/Printed Materials;Performance Response to Education/Teach Back: States/Identifies;Return Demonstration TREATMENT: PT Treatment Interventions: Therapeutic Exercise Evaluation Therapeutic Exercise: 1: supine quad se4ts 1x3 right and 1x5 left with HOB elevated and double pillow 2: seated marches 1x10 B 3: ankle DF/PF 1x10 seated Skilled Intervention: Patient was educated in proper exercise technique and purpose for exercises. Skilled judgment was provided in selection of appropriate interventions. Provided written instruction for home exercise program to facilitate proper performance and compliance. Correct performance of therapeutic exercises was facilitated with verbal and visual cuing. Patient education as noted. Home Exercise Program Assigned: 1: as outlined in therapeutic exs above Billing * Evaluation Low Complexity: 1 Unit Therapeutic Exercise Treatment Minutes: 20 Total Treatment Time Minutes (timed/untimed): 40 Larissa Ellis PT documented [facility] this [facility]10[facility] History of Past illness Narrative* Problem Noted Date Resolved Date Generalized weakness 12/06/2021 01/17/2022 documented as of this encounter (statuses as of 02/26/2022) [facility] of Past illness Narrative* Problem Noted Date Resolved Date Generalized weakness 12/06/2021 01/17/2022 documented as of this encounter (statuses as of 02/26/2022) [facility] of Past illness Narrative* Problem Noted Date Resolved Date Generalized weakness 12/06/2021 01/17/2022 Risk for falls 01/30/2018 03/07/2022 documented as of this encounter (statuses as of 03/07/2022) [facility] of Past illness Narrative* Problem Noted Date Resolved Date Generalized weakness 12/06/2021 01/17/2022 Risk for falls 01/30/2018 03/07/2022 documented as of this encounter (statuses as of 04/03/2022) [facility] illness Narrative* Problem Noted Date Resolved Date Generalized weakness 12/06/2021 01/17/2022 Risk for falls 01/30/2018 03/07/2022 documented as of this encounter (statuses as of 05/14/2022) [facility] Narrative* Problem Noted Date Resolved Date Generalized weakness 12/06/2021 01/17/2022 Risk for falls 01/30/2018 03/07/2022 documented as of this encounter (statuses as of 06/07/2022) [facility] Narrative* Problem Noted Date Resolved Date Generalized weakness 12/06/2021 01/17/2022 Risk for falls 01/30/2018 03/07/2022 documented as of this encounter (statuses as of 07/25/2022) [facility] Narrative* Problem Noted Date Resolved Date Generalized weakness 12/06/2021 01/17/2022 Risk for falls 01/30/2018 03/07/2022 documented as of this encounter (statuses as of 07/30/2022) [facility] Narrative* Problem Noted Date Resolved Date Generalized weakness 12/06/2021 01/17/2022 Risk for falls 01/30/2018 03/07/2022 documented as of this encounter (statuses as of 08/01/2022) [facility] Narrative* Problem Noted Date Resolved Date Generalized weakness 12/06/2021 01/17/2022 Risk for falls 01/30/2018 03/07/2022 documented as of this encounter (statuses as of 08/19/2022) [facility] Narrative* Problem Noted Date Diagnosed Date Resolved Date Generalized weakness 12/06/2021 022 Risk for falls 01/30/2018 03/07/2022 documented as of this encounter (statuses as of 11/06/2022) [facility] of Present illness Narrative* Shaquille Benjamin MD - 11/08/2021 3:10 PM EDT Patient presents with: Follow Up: 3 month follow up HPI: Patient presents today for office visit for Saw gastro and had scope. Esophagus was stretched. Questioned abnormality on tongue. Saw ENT to follow up and had scope there all is ok. Continues to gag and choke on food. Discussed apple sauce or pudding. Pharmacy question? Replacement for magnesium that she take. They will talk with pharmacy. Some PT to help with pain mobility? Does not feel she is strong enough to walk about walk as much. Has significant cervical stenosis on her ct scan done recently. No numbness down her arms and legs. No chest pain or breathing problems. Still feels her pain pills are worth taking. It definitely helps with functioning. No side effects Oarrs done. She is sleeping well. Emotionally is stable. See previous ov: Sodium remains stable, despite changing meds. She has seen nephrology. There is literally no difference off of ssris and on them. Has been low for years. We discussed leaving it alone for now. If changes, consider stopping the arb as a Next step. Mag is improving. She is doing better taking it. Has been low for years with that as well. She is stable on celexa. oarrs done. Using norco just prn. Aware of risks and benefits. Helps her to function. No misuse or abuse. Did do urine tox. No chest pain or shortness of breath. No edema. Has to remain on ppi which may contributing to mag. They did not draw iron etc. Was taking a baby asa but stopped. Declines ifobt. Willing to add on iron etc if low. No black or bloody stools. Sugars have been stable. Component Latest Ref Rng & Units 10/31/2021 WBC 3.70 - 11.00 k/uL 8.24 RBC 3.90 - 5.20 m/uL 4.26 Hemoglobin 11.5 - 15.5 g/dL 11.1 (L) Hematocrit 36.0 - 46.0 % 35.3 (L) MCV 80.0 - 100.0 fL 82.9 MCH 26.0 - 34.0 pg 26.1 MCHC 30.5 - 36.0 g/dL 31.4 RDW-CV 11.5 - 15.0 % 14.6 Platelet Count 150 - 400 k/uL 214 MPV 9.0 - 12.7 fL 9.2 Neut% % 75.9 Abs Neut (ANC) 1.45 - 7.50 k/uL 6.25 Lymph% % 14.6 Abs Lymph 1.00 - 4.00 k/uL 1.20 Bee% % 7.0 Abs Bee <0.87 k/uL 0.58 Eosin% % 1.8 Abs Eosin <0.46 k/uL 0.15 Baso% % 0.5 Abs Baso <0.11 k/uL 0.04 Immature Gran % % 0.2 IMMATURE GRANS (ABS) <0.10 k/uL <0.03 NRBC /100 WBC 0.0 Absolute nRBC <0.01 k/uL <0.01 DTYPE Auto Glucose 74 - 99 mg/dL 150 (H) BUN 7 - 21 mg/dL 22 (H) Creatinine 0.58 - 0.96 mg/dL 0.85 Sodium 136 - 144 mmol/L 131 (L) Potassium 3.7 - 5.1 mmol/L 3.9 Chloride 97 - 105 mmol/L 95 (L) CO2 22 - 30 mmol/L 23 Anion Gap 9 - 18 mmol/L 13 Calcium 8.5 - 10.2 mg/dL 9.1 eGFR >=60 mL/min/1.73m 67 Iron 41 - 186 ug/dL 44 TIBC 232 - 386 ug/dL 414 (H) Transferrin Saturation 15.0 - 57.0 % 10.6 (L) Ferritin 14.7 - 205.1 ng/mL 19.7 Folate >4.7 ng/mL 14.0 Magnesium 1.7 - 2.3 mg/dL 1.1 (L) MEDICATIONS: Current Outpatient Medications Medication Sig citalopram (CELEXA) 20 mg tablet Take 1 tablet by mouth once daily. blood sugar diagnostic (BLOOD GLUCOSE TEST) test strip Test blood sugar(s) 1 times daily. Dx: Type 2 DM - Controlled E11.9 Insulin: No losartan (COZAAR) 25 mg tablet Take 1 tablet by mouth once daily. HYDROcodone-Acetaminophen (NORCO) 7.5-325 mg per tablet Take 1 tablet by mouth every 8 hours as needed for pain for up to 41 days. metFORMIN (GLUCOPHAGE) 500 mg tablet Take 1 tablet by mouth twice daily with meals. nebivolol (BYSTOLIC) 2.5 mg tablet Take 1 tablet by mouth once daily. magnesium oxide (MAGOX) 400 mg (241.3 mg magnesium) tablet Take 1 tablet by mouth twice daily. pantoprazole DR (PROTONIX) 20 mg tablet Take 1 tablet by mouth twice daily before meals. traZODone (DESYREL) 50 mg tablet Take 1 tablet by mouth daily at bedtime. atorvastatin (LIPITOR) 20 mg tablet Take 1 tablet by mouth once daily. levothyroxine (SYNTHROID) 25 mcg tablet Take 1 tablet by mouth once daily. Take on empty stomach. For thyroid. BABY ASPIRIN ORAL Take 81 mg by mouth once daily. Lancets lancets Test blood sugar(s) 1 times daily. Dx: Type 2 DM - E11.8 Insulin: No cyanocobalamin (VITAMIN B-12) 1,000 mcg tab Take 1,000 mcg by mouth once daily. ubidecarenone Q-10 (CO Q-10) 10 mg cap Take 50 mg by mouth twice daily. Cholecalciferol, Vitamin D3, (VITAMIN D-3) 2,000 unit cap Take by mouth. No current facility-administered medications for this visit. 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 Social History Tobacco Use Smoking status: Never Smokeless tobacco: Never Vaping Use Vaping Use: Never used Substance Use Topics Alcohol use: Yes Comment: occasionally Drug use: No Reviewed current medications, allergies, past medical history, surgical history, family history andsocial history today. REVIEW OF SYSTEMS All other reviewed and negative other than HPI. HEALTH MAINTENANCE: Reviewed health maintenance issues today and recommended the following in detail. PNEUMOCOCCAL: 65+(2 - PCV) due on 02/25/2007 DILATED RETINAL EXAM due on 10/11/2020 INFLUENZA(1) due on 10/26/2021 VITALS: BP 120/72 Pulse 84 Wt 74.4 kg (164 lb) BMI 25.69 kg/m Last 4 Encounter Wt Readings: Date: Wt: 08/09/2021 78 kg (172 lb) 05/11/2021 77.4 kg (170 lb 9.6 oz) 2021 75.3 kg (166 lb) 11/03/2020 75.8 kg (167 lb) PHYSICAL EXAMINATION: General appearance: Well appearing, alert, in no acute distress, well-hydrated, well nourished. Skin: Skin color, texture, turgor normal, no suspicious rashes or lesions Head: Normocephalic, no masses, lesions, tenderness or abnormalities Neck: Supple, no adenopathy; thyroid symmetric, normal size, no bruits Lungs: Lungs clear to auscultation. No wheezing, rhonchi, rales Heart: RRR without murmur, gallop, or rubs. No ectopy Abdomen: Normal abdominal exam, Abdomen soft, non-tender. Bowel sounds normal. No masses, organomegaly Extremities: No deformities, edema, skin discoloration, clubbing or cyanosis. Good capillary refill. Musculoskeletal: ASSESSMENT/PLAN: 1. Coronary artery disease involving grayling heart without angina pectoris, unspecified vessel or lesion type - ICD9: 414.01, ICD10: I25.10 (primary diagnosis) - call if any issues. 2. Acute midline thoracic back pain - ICD9: 724.1, ICD10: M54.6 - continue meds. - HYDROCODONE 7.5 MG-ACETAMINOPHEN 325 MG TABLET 3. Osteoarthritis of both knees, unspecified osteoarthritis type - ICD9: 715.96, ICD10: M17.0 - as above. - HYDROCODONE 7.5 MG-ACETAMINOPHEN 325 MG TABLET 4. Anxiety with depression - ICD9: 300.4, ICD10: F41.8 -continue eds. - CITALOPRAM 20 MG TABLET 5. Subclinical hypothyroidism - ICD9: 244.8, ICD10: E03.8 Continue current medications. Notify us if any difficulties are noted. - LEVOTHYROXINE 25 MCG TABLET 6. Chronic thoracic back pain, unspecified back pain laterality - ICD9: 724.1, 338.29, ICD10: M54.6, G89.29 - try physical therapy to help with pain and mobiltiy. 7. Essential hypertension - ICD9: 401.9, ICD10: I10 - good control - Continue current medication(s) - Goal of BP <130/80 8. Dysphagia, unspecified type - ICD9: 787.20, ICD10: R13.10 - per gi. 9. Vitamin B12 deficiency - ICD9: 266.2, ICD10: E53.8 - continue to supplement. 10. GERD without esophagitis - ICD9: 530.81, ICD10: K21.9 - no changes. 11. Hypomagnesemia - ICD9: 275.2, ICD10: E83.42 - see if they have a different pill at pharmacy 12. Hyponatremia - ICD9: 276.1, ICD10: E87.1 - stable. 13. Type 2 diabetes mellitus with complication, without long-term current use of insulin (HCC) - ICD9: 250.90, ICD10: E11.8 Controlled. - Continue current medications 14. Primary osteoarthritis of both knees - ICD9: 715.16, ICD10: M17.0 - as aboe. 15. Cervical stenosis of spine - ICD9: 723.0, ICD10: M48.02 - as above. Physical therapy for pain and mobiltiy. 16. Generalized weakness - ICD9: 780.79, ICD10: R53.1 - therapy for helping with adls and ambulation. Shaquille Benjamin RTO in January, labs before. [facility] Miscellaneous Notes* Telephone Encounter - Ronnie Hyman LPN - 11/06/2021 11:08 AM EDT Patient phones requesting refills as follows: Requested Prescriptions Pending Prescriptions Disp Refills citalopram (CELEXA) 20 mg tablet 30 tablet 5 Sig: Take 1 tablet by mouth once daily. RAFITA 08/09/21 NOV 11/08/21 Please review and advise. Ronnie Hyman LPN documented in this encounterSam[facility]09-[facility]22 Miscellaneous Notes* Telephone Encounter - Fay Dumont Ma - 11/01/2021 12:53 PM EDT [employer] message sent to brady/Rula with information and recommendation below from Provider. To contact office if any questions. Fay Dumont Ma * Telephone Encounter - Shaquille Benjamin MD - 11/01/2021 12:43 PM EDT Labs are stable other than her magnesium has dropped. Keep her follow up appt but take an extra magnesium once a day for three days. documented in this encounter[facility]07-22-2022 Miscellaneous Notes* Telephone Encounter - Shaquille Benjamin MD - 09/15/2021 5:41 PM EDT Can we set up. documented in this encounter[facility]06-30-2022 Miscellaneous Notes* Telephone Encounter - Gracie Ferrer - 08/24/2021 3:42 PM EDT Patient has been identified by name and date of : Yes Pending Prescriptions Disp Refills BLOOD GLUCOSE TEST STRIPS 50 Strip 11 Sig: Test blood sugar(s) 1 times daily. Dx: Type 2 DM - Controlled E11.9 Insulin: No TED: No RX INSTRUCTIONS: Patient aware RX will be sent to pharmacy. No need to notify patient. Gracie Ferrer documented in this encounterSam[facility]06-15-2022 History of Present illness Narrative* Shaquille Benjamin MD - 08/09/2021 3:28 PM EDT Patient presents with: Follow Up: 3 month follow up HPI: Patient presents today for office visit for follow up. Sodium remains stable, despite changing meds. She has seen nephrology. There is literally no difference off of ssris and on them. Has been low for years. We discussed leaving it alone for now. If changes, consider stopping the arb as a Next step. Mag is improving. She is doing better taking it. Has been low for years with that as well. She is stable on celexa. oarrs done. Using norco just prn. Aware of risks and benefits. Helps her to function. No misuse or abuse. Did do urine tox. No chest pain or shortness of breath. No edema. Has to remain on ppi which may contributing to mag. They did not draw iron etc. Was taking a baby asa but stopped. Declines ifobt. Willing to add on iron etc if low. No black or bloody stools. Sugars have been stable. See last ov three months ago, copied and pasted. Feels weak. Does not feel like doing much. Says her moods are lousy. No suicidal ideation. Her sister in law from [place]. Added citalopram. Just saw Dr. Ruff. Had echo. Showed normal EF. No chest pain No shortness of breath. No issues with her stomach. She has been taking magnesium again. Has a hx of sleep apnea. Does not use cpap. She refuses to treat. Discussed risks of not treating it. DM: she is checking sugars daily. Her sugars have been well controlled. She is able to use her machine and testing herself and is fully able to test on her own. Its usage does help us to maintain her current control. Sugars range between 70's and 110. No polyuria or polydipsia. bp is stable. Is adequate for her age. Was 120's/80's recently at cardiology Last carotid was 08/14. Has 40-59% narrowing. Still using her norco Feels it helps her to function. Uses it just prn. Has been on for some time. Has seen specialist who concur with use. No misuse or abuse. Component Latest Ref Rng & Units 05/24/2021 08/07/2021 WBC 3.70 - 11.00 k/uL 5.70 5.65 RBC 3.90 - 5.20 m/uL 4.21 4.10 Hemoglobin 11.5 - 15.5 g/dL 11.0 (L) 11.1 (L) Hematocrit 36.0 - 46.0 % 35.7 (L) 34.1 (L) MCV 80.0 - 100.0 fL 84.8 83.2 MCH 26.0 - 34.0 pg 26.1 27.1 MCHC 30.5 - 36.0 g/dL 30.8 32.6 RDW-CV 11.5 - 15.0 % 14.9 14.6 Platelet Count 150 - 400 k/uL 209 211 MPV 9.0 - 12.7 fL 9.1 9.2 Neut% % 70.3 65.8 Abs Neut (ANC) 1.45 - 7.50 k/uL 4.01 3.72 Lymph% % 19.5 20.4 Abs Lymph 1.00 - 4.00 k/uL 1.11 1.15 Bee% % 7.5 9.0 Abs Bee <0.87 k/uL 0.43 0.51 Eosin% % 1.8 3.5 Abs Eosin <0.46 k/uL 0.10 0.20 Baso% % 0.5 0.9 Abs Baso <0.11 k/uL 0.03 0.05 Immature Gran % % 0.4 0.4 IMMATURE GRANS (ABS) <0.10 k/uL <0.03 <0.03 NRBC /100 WBC 0.0 0.0 Absolute nRBC <0.01 k/uL <0.01 <0.01 DTYPE Auto Auto Protein, Total 6.3 - 8.0 g/dL 7.0 6.9 Albumin 3.9 - 4.9 g/dL 4.1 4.1 Calcium 8.5 - 10.2 mg/dL 9.1 9.6 Bilirubin, Total 0.2 - 1.3 mg/dL 0.6 0.6 Alkaline Phosphatase 34 - 123 U/L 55 59 AST 13 - 35 U/L 14 14 ALT 7 - 38 U/L <5 (L) 6 (L) Glucose 74 - 99 mg/dL 132 (H) 135 (H) BUN 7 - 21 mg/dL 15 11 Creatinine 0.58 - 0.96 mg/dL 1.01 (H) 0.84 Sodium 136 - 144 mmol/L 130 (L) 130 (L) Potassium 3.7 - 5.1 mmol/L 4.1 4.3 Chloride 97 - 105 mmol/L 96 (L) 94 (L) CO2 22 - 30 mmol/L 26 26 Anion Gap 9 - 18 mmol/L 8 (L) 10 eGFR >=60 mL/min/1.73m 54 (L) 68 Cholesterol, Total <200 mg/dL 160 163 Triglyceride <150 mg/dL 85 86 HDL Cholesterol >39 mg/dL 79 79 Non HDL Cholesterol <130 mg/dL 81 84 Fasting Time hrs 12 12 VLDL Cholesterol <30 mg/dL 17 17 TC:HDL Ratio <5.10 2.03 2.06 LDL Cholesterol <100 mg/dL 64 67 LDL:HDL Ratio <2.54 0.81 0.85 Phencyclidine Negative Negative Benzodiazepines Urine Negative Negative Cocaine Urine Negative Negative Amphetamines Negative Negative Cannabinoids, Urine Negative Negative Opiates Negative Preliminary positive (A) Barbiturates Negative Negative Ethanol, Urine <11 mg/dL <11 Oxycodone, Urine Negative Negative Bilirubin, Conjug <0.2 mg/dL 0.2 (H) Creatinine, Ur Random (UCRR) 20.0 - 300.0 mg/dL 157.3 53.9 Albumin, Urine Random mg/L 30.6 50.3 Albumin/Creat Ratio <30 mg/g 19 93 (H) Hemoglobin A1C 4.3 - 5.6 % 6.6 (H) 6.7 (H) Estimated Average Glucose mg/dL 143 146 Magnesium 1.7 - 2.3 mg/dL 1.1 (L) 1.4 (L) MEDICATIONS: Current Outpatient Medications Medication Sig magnesium oxide (MAGOX) 400 mg (241.3 mg magnesium) tablet Take 1 tablet by mouth twice daily. pantoprazole DR (PROTONIX) 20 mg tablet Take 1 tablet by mouth twice daily before meals. traZODone (DESYREL) 50 mg tablet Take 1 tablet by mouth daily at bedtime. citalopram (CELEXA) 20 mg tablet Take 1 tablet by mouth once daily. HYDROcodone-Acetaminophen (NORCO) 7.5-325 mg per tablet Take 1 tablet by mouth every 8 hours as needed for pain for up to 41 days. nebivolol (BYSTOLIC) 2.5 mg tablet Take 1 tablet by mouth once daily. atorvastatin (LIPITOR) 20 mg tablet Take 1 tablet by mouth once daily. losartan (COZAAR) 25 mg tablet Take 1 tablet by mouth once daily. metFORMIN (GLUCOPHAGE) 500 mg tablet Take 1 tablet by mouth twice daily with meals. levothyroxine (SYNTHROID) 25 mcg tablet Take 1 tablet by mouth once daily. Take on empty stomach. For thyroid. BABY ASPIRIN ORAL Take 81 mg by mouth once daily. cyanocobalamin (VITAMIN B-12) 1,000 mcg tab Take 1,000 mcg by mouth once daily. ubidecarenone Q-10 (CO Q-10) 10 mg cap Take 50 mg by mouth twice daily. Cholecalciferol, Vitamin D3, (VITAMIN D-3) 2,000 unit cap Take by mouth. blood sugar diagnostic (BLOOD GLUCOSE TEST) test strip Test blood sugar(s) 1 times daily. Dx: Type 2 DM - Controlled E11.9 Insulin: No Lancets lancets Test blood sugar(s) 1 times daily. Dx: Type 2 DM - E11.8 Insulin: No No current facility-administered medications for this visit. 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 Social History Tobacco Use Smoking status: Never Smoker Smokeless tobacco: Never Used Vaping Use Vaping Use: Never used Substance Use Topics Alcohol use: Yes Comment: occasionally Drug use: No Reviewed current medications, allergies, past medical history, surgical history, family history andsocial history today. REVIEW OF SYSTEMS as above All other reviewed and negative other than HPI. HEALTH MAINTENANCE: Reviewed health maintenance issues today and recommended the following in detail. ADVANCE DIRECTIVE DISCUSSION Never done VITALS: BP 132/72 Pulse 80 Wt 78 kg (172 lb) BMI 26.94 kg/m Last 4 Encounter Wt Readings: Date: Wt: 05/11/2021 77.4 kg (170 lb 9.6 oz) 2021 75.3 kg (166 lb) 11/03/2020 75.8 kg (167 lb) 07/28/2020 74.8 kg (165 lb) PHYSICAL EXAMINATION: General appearance: Well appearing, alert, in no acute distress, well-hydrated, well nourished. Skin: Skin color, texture, turgor normal, no suspicious rashes or lesions Head: Normocephalic, no masses, lesions, tenderness or abnormalities Lungs: Lungs clear to auscultation. No wheezing, rhonchi, rales Heart: RRR without murmur, gallop, or rubs. No ectopy Abdomen: Normal abdominal exam, Abdomen soft, non-tender. Bowel sounds normal. No masses, organomegaly Extremities: No deformities, edema, skin discoloration, clubbing or cyanosis. Good capillary refill. Musculoskeletal: No joint swelling, deformity, or tenderness Peripheral pulses: Normal Neuro: Negative. ASSESSMENT/PLAN: 1. Vitamin B12 deficiency - ICD9: 266.2, ICD10: E53.8 (primary diagnosis) - stable. 2. Acute midline thoracic back pain - ICD9: 724.1, ICD10: M54.6 - continue meds. - HYDROCODONE 7.5 MG-ACETAMINOPHEN 325 MG TABLET 3. Osteoarthritis of both knees, unspecified osteoarthritis type - ICD9: 715.96, ICD10: M17.0 - HYDROCODONE 7.5 MG-ACETAMINOPHEN 325 MG TABLET 4. Type 2 diabetes mellitus with complication, without long-term current use of insulin (HCC) - ICD9: 250.90, ICD10: E11.8 Controlled. - Continue current medications - METFORMIN 500 MG TABLET 5. Essential hypertension - ICD9: 401.9, ICD10: I10 - good control - Continue current medication(s) - Goal of BP <130/80 - LOSARTAN 25 MG TABLET - NEBIVOLOL 2.5 MG TABLET 6. Bilateral carotid artery stenosis - ICD9: 433.10, 433.30, ICD10: I65.23 - stable. 7. Subclinical hypothyroidism - ICD9: 244.8, ICD10: E03.8 - tsh is stable. 8. Coronary artery disease involving grayling heart without angina pectoris, unspecified vessel or lesion type - ICD9: 414.01, ICD10: I25.10 - doing well. 9. Zenker diverticulum - ICD9: 530.6, ICD10: K22.5 - continue meds. 10. GERD without esophagitis - ICD9: 530.81, ICD10: K21.9 - stable. 11. Depression, unspecified depression type - ICD9: 311, ICD10: F32.A - continue meds. 12. Hyperlipidemia, mixed - ICD9: 272.2, ICD10: E78.2 - good control - Continue current medication. 13. Anemia, unspecified type - ICD9: 285.9, ICD10: D64.9 - follow labs. Shaquille Benjamin RTO in three months and prn. documented [facility]06-[facility]22 Miscellaneous Notes* Telephone Encounter - Maribell Baez - 07/26/2021 4:08 PM EDT Please review dosage on sertraline rx. Epic shows 100 mg on current med list. Patient said it is 25 mg. * Telephone Encounter - Maribell Kiya Baez - 07/26/2021 4:07 PM EDT Patient has been identified by name and date of : Yes Pending Prescriptions Disp Refills MAGNESIUM OXIDE 400 MG (241.3 MG MAGNESIUM) TABLET 180 tablet 2 Sig: Take 1 tablet by mouth twice daily. TED: No PANTOPRAZOLE 20 MG TABLET,DELAYED RELEASE 180 tablet 3 Sig: Take 1 tablet by mouth twice daily before meals. TED: No SERTRALINE 100 MG TABLET 30 tablet 5 Sig: Take 1 tablet by mouth once daily. TED: No RX INSTRUCTIONS: Patient aware RX will be sent to pharmacy. No need to notify patient. Maribellepi Huertas Pss documented in this encounterSam[facility]04-28-2022 Miscellaneous Notes* Telephone Encounter - Naima Lopez Ma - 06/22/2021 10:58 AM EDT Last office visit: 05/11/21 F/u scheduled: 08/09/21 Naima Lopez Ma * Telephone Encounter - Loraine Baez - 06/22/2021 10:26 AM EDT Pharmacy verified in [facility] Patient has been identified by name and date of : Yes Patient aware RX will be sent to pharmacy. No need to notify patient. Patient phones for refill(s): Pending Prescriptions Disp Refills TRAZODONE 50 MG TABLET 90 tablet 1 Sig: Take 1 tablet by mouth daily at bedtime. TED: No Date of last office visit : 05/11/2021 Date of next office visit : 08/09/2021 Last 2 Encounter Wt Readings: Date: Wt: 05/11/2021 77.4 kg (170 lb 9.6 oz) 2021 75.3 kg (166 lb) Please advise. Loraine Elizondo Pss * Telephone Encounter - Loraine Baez - 06/22/2021 10:23 AM EDT Patient has a script from 03-08-21 for Sertraline 25 mg 1 tablet by mouth daily Disp: 30 Patient is doing well on this dosage. [facility] Diagnosis Depression, unspecified depression type documented in this encounter [facility] note* Diagnosis Hypomagnesemia Disorders of magnesium metabolism Zenker diverticulum Diverticulum of esophagus, acquired Depression, unspecified depression type [facility]* Diagnosis Hyperlipidemia, mixed- Primary Mixed hyperlipidemia Hypomagnesemia Disorders of magnesium metabolism Type 2 diabetes mellitus with complication, without long-term current use of insulin ([facility]) Medication monitoring encounter Encounter for therapeutic drug monitoring documented in this encounter [facility] note* Diagnosis Vitamin B12 deficiency- Primary Other B-complex deficiencies Acute midline thoracic back pain Osteoarthritis of both knees, unspecified osteoarthritis type Type 2 diabetes mellitus with complication, without long-term current use of insulin ([facility]) Essential hypertension Unspecified essential hypertension Bilateral carotid artery stenosis Occlusion and stenosis of carotid artery without mention of cerebral infarction Subclinical hypothyroidism Other specified acquired hypothyroidism Coronary artery disease involving grayling heart without angina pectoris, unspecified vessel or lesion type Zenker diverticulum Diverticulum of esophagus, acquired GERD without esophagitis Esophageal reflux Depression, unspecified depression type Hyperlipidemia, mixed Mixed hyperlipidemia Anemia, unspecified type [facility]* Diagnosis Type 2 diabetes mellitus with complication, without long-term current use of insulin ([facility]) [facility]* Diagnosis Dysphagia, unspecified type- Primary documented [facility] this [facility] noteNo assessment information availableWAvita [facility] Work Phone: Evaluation note* Diagnosis Vitamin B12 deficiency- Primary Other B-complex deficiencies Anemia, unspecified type Hypomagnesemia Disorders of magnesium metabolism Hyponatremia Hyposmolality and/or hyponatremia documented in this [facility]* Diagnosis Anxiety with depression documented [facility]* Diagnosis Onset Date Resolution Status Dysphagia acute Esophageal stenosis acute History of excision of Zenker's diverticulum acute Neck mass acute [facility] Work Phone: Evaluation note* Diagnosis Coronary artery disease involving grayling heart without angina pectoris, unspecified vessel or lesion type- Primary Acute midline thoracic back pain Osteoarthritis of both knees, unspecified osteoarthritis type Anxiety with depression Subclinical hypothyroidism Other specified acquired hypothyroidism Chronic thoracic back pain, unspecified back pain laterality Essential hypertension Unspecified essential hypertension Dysphagia, unspecified type Vitamin B12 deficiency Other B-complex deficiencies GERD without esophagitis Esophageal reflux Hypomagnesemia Disorders of magnesium metabolism Hyponatremia Hyposmolality and/or hyponatremia Type 2 diabetes mellitus with complication, without long-term current use of insulin ([facility]) Primary osteoarthritis of both knees Primary localized osteoarthrosis, lower leg Cervical stenosis of spine Spinal stenosis in cervical region Generalized weakness Other malaise and fatigue documented [facility] this [facility]* Diagnosis Primary osteoarthritis of both knees- Primary Primary localized osteoarthrosis, lower leg Chronic thoracic back pain, unspecified back pain laterality Generalized weakness Other malaise and fatigue documented [facility] this [facility]* Diagnosis Essential hypertension Unspecified essential hypertension documented [facility] this [facility]* Diagnosis Acute midline thoracic back pain Osteoarthritis of both knees, unspecified osteoarthritis type [facility]* Diagnosis Type 2 diabetes mellitus with complication, without long-term current use of insulin ([facility])- Primary Encounter for immunization Need for other specified prophylactic vaccination against single bacterial disease 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) Unspecified hypertensive heart disease with heart failure Hyperlipidemia, mixed Mixed hyperlipidemia Coronary artery disease involving grayling heart without angina pectoris, unspecified vessel or lesion type Chronic thoracic back pain, unspecified back pain laterality ELKIN (obstructive sleep apnea) Obstructive sleep apnea (adult) (pediatric) Vitamin B12 deficiency Other B-complex deficiencies Zenker diverticulum Diverticulum of esophagus, acquired Hyponatremia Hyposmolality and/or hyponatremia Hypomagnesemia Disorders of magnesium metabolism Subclinical hypothyroidism Other specified acquired hypothyroidism Bilateral carotid artery stenosis Occlusion and stenosis of carotid artery without mention of cerebral infarction Chronic anemia Anemia, unspecified [facility] Diagnosis Acute midline thoracic back pain Osteoarthritis of both knees, unspecified osteoarthritis type [facility] Diagnosis Essential hypertension- Primary Unspecified essential hypertension Coronary artery disease involving grayling heart without angina pectoris, unspecified vessel or lesion type 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) Unspecified hypertensive heart disease with heart failure ELKIN (obstructive sleep apnea) Obstructive sleep apnea (adult) (pediatric) Vitamin B12 deficiency Other B-complex deficiencies GERD without esophagitis Esophageal reflux Depression, unspecified depression type Hyponatremia Hyposmolality and/or hyponatremia Hypomagnesemia Disorders of magnesium metabolism Zenker diverticulum Diverticulum of esophagus, acquired Hyperlipidemia, mixed Mixed hyperlipidemia Bilateral carotid artery stenosis Occlusion and stenosis of carotid artery without mention of cerebral infarction Type 2 diabetes mellitus with complication, without long-term current use of insulin ([facility]) Subclinical hypothyroidism Other specified acquired hypothyroidism Major depressive disorder, recurrent, in partial remission (HCC) Major depressive disorder, recurrent episode, in partial or unspecified remission documented in this encounter [facility] note* Diagnosis Type 2 diabetes mellitus with complication, without long-term current use of insulin ([facility])- Primary Encounter for medication monitoring Encounter for therapeutic drug monitoring documented in this encounter [facility] note* Diagnosis Hyponatremia- Primary Hyposmolality and/or hyponatremia Hypomagnesemia Disorders of magnesium metabolism Acute midline thoracic back pain Osteoarthritis of both knees, unspecified osteoarthritis type Spinal stenosis of lumbar region, unspecified whether neurogenic claudication present Vitamin B12 deficiency Other B-complex deficiencies GERD without esophagitis Esophageal reflux Zenker diverticulum Diverticulum of esophagus, acquired Coronary artery disease involving grayling heart without angina pectoris, unspecified vessel or lesion type Essential hypertension Unspecified essential hypertension Hyperlipidemia, mixed Mixed hyperlipidemia 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) Unspecified hypertensive heart disease with heart failure Depression, unspecified depression type Type 2 diabetes mellitus with complication, without long-term current use of insulin (HCC) Subclinical hypothyroidism Other specified acquired hypothyroidism documented in this encounter [facility] note* Diagnosis Essential hypertension Unspecified essential hypertension documented in this encounter [facility] note* Diagnosis Hyponatremia- Primary Hyposmolality and/or hyponatremia [facility] Diagnosis Coronary artery disease involving grayling heart without angina pectoris, unspecified vessel or lesion type- Primary Subclinical hypothyroidism Other specified acquired hypothyroidism Anxiety with depression Encounter for immunization Need for other specified prophylactic vaccination against single bacterial disease Tachycardia-bradycardia (HCC) Sinoatrial node dysfunction Essential hypertension Unspecified essential hypertension ELKIN (obstructive sleep apnea) Obstructive sleep apnea (adult) (pediatric) Vitamin B12 deficiency Other B-complex deficiencies GERD without esophagitis Esophageal reflux Zenker diverticulum Diverticulum of esophagus, acquired Type 2 diabetes mellitus with complication, without long-term current use of insulin (HCC) Bilateral carotid artery stenosis Occlusion and stenosis of carotid artery without mention of cerebral infarction Hyponatremia Hyposmolality and/or hyponatremia Hypomagnesemia Disorders of magnesium metabolism Chronic thoracic back pain, unspecified back pain laterality Primary osteoarthritis of both knees Primary localized osteoarthrosis, lower leg Spinal stenosis of lumbar region, unspecified whether neurogenic claudication present Depression, unspecified depression type Anemia, unspecified type [facility] Diagnosis Essential hypertension- Primary Unspecified essential hypertension Coronary artery disease involving grayling heart without angina pectoris, unspecified vessel or lesion type Hyperlipidemia, mixed Mixed hyperlipidemia Vitamin B12 deficiency Other B-complex deficiencies Type 2 diabetes mellitus with complication, without long-term current use of insulin (HCC) Hypomagnesemia Disorders of magnesium metabolism Subclinical hypothyroidism Other specified acquired hypothyroidism Bilateral carotid artery stenosis Occlusion and stenosis of carotid artery without mention of cerebral infarction Zenker diverticulum Diverticulum of esophagus, acquired Tachycardia-bradycardia (HCC) Sinoatrial node dysfunction Pure hypercholesterolemia Depression, unspecified depression type Hyponatremia Hyposmolality and/or hyponatremia Need for vaccination Need for prophylactic vaccination and inoculation against unspecified single disease [facility] Diagnosis Anxiety with depression Type 2 diabetes mellitus with complication, without long-term current use of insulin (HCC) [facility] Diagnosis Acute midline thoracic back pain Osteoarthritis of both knees, unspecified osteoarthritis type [facility] Diagnosis Type 2 diabetes mellitus with complication, without long-term current use of insulin (HCC) Acute midline thoracic back pain Osteoarthritis of both knees, unspecified osteoarthritis type [facility] Diagnosis Essential hypertension Unspecified essential [facility] Tachycardia-bradycardia (HCC)- Primary Sinoatrial node dysfunction Pure hypercholesterolemia ELKIN (obstructive sleep apnea) Obstructive sleep apnea (adult) (pediatric) 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 History of major vascular surgery Personal history of surgery to heart and great vessels, presenting hazards to health Vitamin B12 deficiency Other B-complex deficiencies Zenker diverticulum Diverticulum of esophagus, acquired GERD without esophagitis Esophageal reflux Type 2 diabetes mellitus with complication, without long-term current use of insulin (HCC) Hypomagnesemia Disorders of magnesium metabolism Subclinical hypothyroidism Other specified acquired hypothyroidism Hyponatremia Hyposmolality and/or hyponatremia Onychomycosis Dermatophytosis of nail Anemia, unspecified type Medication monitoring encounter Encounter for therapeutic drug monitoring Encounter for screening examination for other mental health and behavioral disorders [facility] Diagnosis Hypomagnesemia- Primary Disorders of magnesium metabolism [facility] Diagnosis Pre-operative examination- Primary Preoperative examination, unspecified Dysphagia, unspecified type History of CVA in adulthood Bilateral carotid artery stenosis Occlusion and stenosis of carotid artery without mention of cerebral infarction 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) Unspecified hypertensive heart disease with heart failure Hyperlipidemia, mixed Mixed hyperlipidemia Essential hypertension Unspecified essential hypertension Coronary artery disease involving grayling heart without angina pectoris, unspecified vessel or lesion type ELKIN (obstructive sleep apnea) Obstructive sleep apnea (adult) (pediatric) Zenker diverticulum Diverticulum of esophagus, acquired GERD without esophagitis Esophageal reflux Hyponatremia Hyposmolality and/or hyponatremia Hypomagnesemia Disorders of magnesium metabolism Type 2 diabetes mellitus with complication, without long-term current use of insulin (HCC) Subclinical hypothyroidism Other specified acquired hypothyroidism Chronic thoracic back pain, unspecified back pain laterality Depression, unspecified depression type Acute midline thoracic back pain Osteoarthritis of both knees, unspecified osteoarthritis type [facility] Diagnosis Pre-operative examination- Primary Preoperative examination, unspecified Dysphagia, unspecified type History of CVA in adulthood Bilateral carotid artery stenosis Occlusion and stenosis of carotid artery without mention of cerebral infarction 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) Unspecified hypertensive heart disease with heart failure Hyperlipidemia, mixed Mixed hyperlipidemia Essential hypertension Unspecified essential hypertension Coronary artery disease involving grayling heart without angina pectoris, unspecified vessel or lesion type ELKIN (obstructive sleep apnea) Obstructive sleep apnea (adult) (pediatric) Zenker diverticulum Diverticulum of esophagus, acquired GERD without esophagitis Esophageal reflux Hyponatremia Hyposmolality and/or hyponatremia Hypomagnesemia Disorders of magnesium metabolism Type 2 diabetes mellitus with complication, without long-term current use of insulin (HCC) Subclinical hypothyroidism Other specified acquired hypothyroidism Chronic thoracic back pain, unspecified back pain laterality Depression, unspecified depression type Type 2 diabetes mellitus with complication, without long-term current use of insulin (HCC)- Primary Onychomycosis Dermatophytosis of nail Diminished pulses in lower extremity Other symptoms involving cardiovascular system [facility]* Diagnosis Pre-operative examination- Primary Preoperative examination, unspecified Dysphagia, unspecified type History of CVA in adulthood Bilateral carotid artery stenosis Occlusion and stenosis of carotid artery without mention of cerebral infarction 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) Unspecified hypertensive heart disease with heart failure Hyperlipidemia, mixed Mixed hyperlipidemia Essential hypertension Unspecified essential hypertension Coronary artery disease involving grayling heart without angina pectoris, unspecified vessel or lesion type ELKIN (obstructive sleep apnea) Obstructive sleep apnea (adult) (pediatric) Zenker diverticulum Diverticulum of esophagus, acquired GERD without esophagitis Esophageal reflux Hyponatremia Hyposmolality and/or hyponatremia Hypomagnesemia Disorders of magnesium metabolism Type 2 diabetes mellitus with complication, without long-term current use of insulin (HCC) Subclinical hypothyroidism Other specified acquired hypothyroidism Chronic thoracic back pain, unspecified back pain laterality Depression, unspecified depression type Subclinical hypothyroidism Other specified acquired hypothyroidism documented in this encounter [facility] note* Diagnosis Pre-operative examination- Primary Preoperative examination, unspecified Dysphagia, unspecified type History of CVA in adulthood Bilateral carotid artery stenosis Occlusion and stenosis of carotid artery without mention of cerebral infarction 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) Unspecified hypertensive heart disease with heart failure Hyperlipidemia, mixed Mixed hyperlipidemia Essential hypertension Unspecified essential hypertension Coronary artery disease involving grayling heart without angina pectoris, unspecified vessel or lesion type ELKIN (obstructive sleep apnea) Obstructive sleep apnea (adult) (pediatric) Zenker diverticulum Diverticulum of esophagus, acquired GERD without esophagitis Esophageal reflux Hyponatremia Hyposmolality and/or hyponatremia Hypomagnesemia Disorders of magnesium metabolism Type 2 diabetes mellitus with complication, without long-term current use of insulin (HCC) Subclinical hypothyroidism Other specified acquired hypothyroidism Chronic thoracic back pain, unspecified back pain laterality Depression, unspecified depression type Acute midline thoracic back pain Osteoarthritis of both knees, unspecified osteoarthritis type documented in this encounter [facility] note* Diagnosis Pre-operative examination- Primary Preoperative examination, unspecified Dysphagia, unspecified type History of CVA in adulthood Bilateral carotid artery stenosis Occlusion and stenosis of carotid artery without mention of cerebral infarction 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) Unspecified hypertensive heart disease with heart failure Hyperlipidemia, mixed Mixed hyperlipidemia Essential hypertension Unspecified essential hypertension Coronary artery disease involving grayling heart without angina pectoris, unspecified vessel or lesion type ELKIN (obstructive sleep apnea) Obstructive sleep apnea (adult) (pediatric) Zenker diverticulum Diverticulum of esophagus, acquired GERD without esophagitis Esophageal reflux Hyponatremia Hyposmolality and/or hyponatremia Hypomagnesemia Disorders of magnesium metabolism Type 2 diabetes mellitus with complication, without long-term current use of insulin (HCC) Subclinical hypothyroidism Other specified acquired hypothyroidism Chronic thoracic back pain, unspecified back pain laterality Depression, unspecified depression type Anxiety with depression Type 2 diabetes mellitus with complication, without long-term current use of insulin (HCC) documented in this encounter [facility] note* Diagnosis Pre-operative examination- Primary Preoperative examination, unspecified Dysphagia, unspecified type History of CVA in adulthood Bilateral carotid artery stenosis Occlusion and stenosis of carotid artery without mention of cerebral infarction 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) Unspecified hypertensive heart disease with heart failure Hyperlipidemia, mixed Mixed hyperlipidemia Essential hypertension Unspecified essential hypertension Coronary artery disease involving grayling heart without angina pectoris, unspecified vessel or lesion type ELKIN (obstructive sleep apnea) Obstructive sleep apnea (adult) (pediatric) Zenker diverticulum Diverticulum of esophagus, acquired GERD without esophagitis Esophageal reflux Hyponatremia Hyposmolality and/or hyponatremia Hypomagnesemia Disorders of magnesium metabolism Type 2 diabetes mellitus with complication, without long-term current use of insulin (HCC) Subclinical hypothyroidism Other specified acquired hypothyroidism Chronic thoracic back pain, unspecified back pain laterality Depression, unspecified depression type Strain of lumbar region, initial encounter- Primary documented in this encounter [facility] note* Diagnosis Pre-operative examination- Primary Preoperative examination, unspecified Dysphagia, unspecified type History of CVA in adulthood Bilateral carotid artery stenosis Occlusion and stenosis of carotid artery without mention of cerebral infarction 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) Unspecified hypertensive heart disease with heart failure Hyperlipidemia, mixed Mixed hyperlipidemia Essential hypertension Unspecified essential hypertension Coronary artery disease involving grayling heart without angina pectoris, unspecified vessel or lesion type ELKIN (obstructive sleep apnea) Obstructive sleep apnea (adult) (pediatric) Zenker diverticulum Diverticulum of esophagus, acquired GERD without esophagitis Esophageal reflux Hyponatremia Hyposmolality and/or hyponatremia Hypomagnesemia Disorders of magnesium metabolism Type 2 diabetes mellitus with complication, without long-term current use of insulin (HCC) Subclinical hypothyroidism Other specified acquired hypothyroidism Chronic thoracic back pain, unspecified back pain laterality Depression, unspecified depression type Acute midline thoracic back pain Osteoarthritis of both knees, unspecified osteoarthritis type [facility] Diagnosis Pre-operative examination- Primary Preoperative examination, unspecified Dysphagia, unspecified type History of CVA in adulthood Bilateral carotid artery stenosis Occlusion and stenosis of carotid artery without mention of cerebral infarction 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) Unspecified hypertensive heart disease with heart failure Hyperlipidemia, mixed Mixed hyperlipidemia Essential hypertension Unspecified essential hypertension Coronary artery disease involving grayling heart without angina pectoris, unspecified vessel or lesion type ELKIN (obstructive sleep apnea) Obstructive sleep apnea (adult) (pediatric) Zenker diverticulum Diverticulum of esophagus, acquired GERD without esophagitis Esophageal reflux Hyponatremia Hyposmolality and/or hyponatremia Hypomagnesemia Disorders of magnesium metabolism Type 2 diabetes mellitus with complication, without long-term current use of insulin (HCC) Subclinical hypothyroidism Other specified acquired hypothyroidism Chronic thoracic back pain, unspecified back pain laterality Depression, unspecified depression type Gait disturbance- Primary Abnormality of gait Major depressive disorder, recurrent, in partial remission (HCC) Major depressive disorder, recurrent episode, in partial or unspecified remission 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) Unspecified hypertensive heart disease with heart failure Anxiety with depression Spinal stenosis of lumbar region, unspecified whether neurogenic claudication present Chronic thoracic back pain, unspecified back pain laterality Acute midline thoracic back pain Osteoarthritis of both knees, unspecified osteoarthritis type documented [facility]* Diagnosis Pre-operative examination- Primary Preoperative examination, unspecified Dysphagia, unspecified type History of CVA in adulthood Bilateral carotid artery stenosis Occlusion and stenosis of carotid artery without mention of cerebral infarction 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) Unspecified hypertensive heart disease with heart failure Hyperlipidemia, mixed Mixed hyperlipidemia Essential hypertension Unspecified essential hypertension Coronary artery disease involving grayling heart without angina pectoris, unspecified vessel or lesion type ELKIN (obstructive sleep apnea) Obstructive sleep apnea (adult) (pediatric) Zenker diverticulum Diverticulum of esophagus, acquired GERD without esophagitis Esophageal reflux Hyponatremia Hyposmolality and/or hyponatremia Hypomagnesemia Disorders of magnesium metabolism Type 2 diabetes mellitus with complication, without long-term current use of insulin (HCC) Subclinical hypothyroidism Other specified acquired hypothyroidism Chronic thoracic back pain, unspecified back pain laterality Depression, unspecified depression type Essential hypertension- Primary Unspecified essential hypertension Coronary artery disease involving grayling heart without angina pectoris, unspecified vessel or lesion type Hyperlipidemia, mixed Mixed hyperlipidemia Tachycardia-bradycardia (HCC) Sinoatrial node dysfunction ELKIN (obstructive sleep apnea) Obstructive sleep apnea (adult) (pediatric) Zenker diverticulum Diverticulum of esophagus, acquired Vitamin B12 deficiency Other B-complex deficiencies GERD without esophagitis Esophageal reflux Hypomagnesemia Disorders of magnesium metabolism Type 2 diabetes mellitus with complication, without long-term current use of insulin (HCC) Subclinical hypothyroidism Other specified acquired hypothyroidism Anemia due to other cause, not classified Chronic thoracic back pain, unspecified back pain laterality Primary osteoarthritis of both knees Primary localized osteoarthrosis, lower leg Spinal stenosis of lumbar region, unspecified whether neurogenic claudication present Major depressive disorder, recurrent, in partial remission (HCC) Major depressive disorder, recurrent episode, in partial or unspecified remission Hyponatremia Hyposmolality and/or hyponatremia Bilateral carotid artery stenosis Occlusion and stenosis of carotid artery without mention of cerebral infarction [facility] Pre-operative examination- Primary Preoperative examination, unspecified Dysphagia, unspecified type History of CVA in adulthood Bilateral carotid artery stenosis Occlusion and stenosis of carotid artery without mention of cerebral infarction 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) Unspecified hypertensive heart disease with heart failure Hyperlipidemia, mixed Mixed hyperlipidemia Essential hypertension Unspecified essential hypertension Coronary artery disease involving grayling heart without angina pectoris, unspecified vessel or lesion type ELKIN (obstructive sleep apnea) Obstructive sleep apnea (adult) (pediatric) Zenker diverticulum Diverticulum of esophagus, acquired GERD without esophagitis Esophageal reflux Hyponatremia Hyposmolality and/or hyponatremia Hypomagnesemia Disorders of magnesium metabolism Type 2 diabetes mellitus with complication, without long-term current use of insulin (HCC) Subclinical hypothyroidism Other specified acquired hypothyroidism Chronic thoracic back pain, unspecified back pain laterality Depression, unspecified depression type Primary osteoarthritis of both knees- Primary Primary localized osteoarthrosis, lower leg Chronic thoracic back pain, unspecified back pain laterality [facility] Pre-operative examination- Primary Preoperative examination, unspecified Dysphagia, unspecified type History of CVA in adulthood Bilateral carotid artery stenosis Occlusion and stenosis of carotid artery without mention of cerebral infarction 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) Unspecified hypertensive heart disease with heart failure Hyperlipidemia, mixed Mixed hyperlipidemia Essential hypertension Unspecified essential hypertension Coronary artery disease involving grayling heart without angina pectoris, unspecified vessel or lesion type ELKIN (obstructive sleep apnea) Obstructive sleep apnea (adult) (pediatric) Zenker diverticulum Diverticulum of esophagus, acquired GERD without esophagitis Esophageal reflux Hyponatremia Hyposmolality and/or hyponatremia Hypomagnesemia Disorders of magnesium metabolism Type 2 diabetes mellitus with complication, without long-term current use of insulin (HCC) Subclinical hypothyroidism Other specified acquired hypothyroidism Chronic thoracic back pain, unspecified back pain laterality Depression, unspecified depression type Essential hypertension Unspecified essential hypertension Acute midline thoracic back pain Osteoarthritis of both knees, unspecified osteoarthritis type documented in this encounter [facility] note* Diagnosis Pre-operative examination- Primary Preoperative examination, unspecified Dysphagia, unspecified type History of CVA in adulthood Bilateral carotid artery stenosis Occlusion and stenosis of carotid artery without mention of cerebral infarction 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) Unspecified hypertensive heart disease with heart failure Hyperlipidemia, mixed Mixed hyperlipidemia Essential hypertension Unspecified essential hypertension Coronary artery disease involving grayling heart without angina pectoris, unspecified vessel or lesion type ELKIN (obstructive sleep apnea) Obstructive sleep apnea (adult) (pediatric) Zenker diverticulum Diverticulum of esophagus, acquired GERD without esophagitis Esophageal reflux Hyponatremia Hyposmolality and/or hyponatremia Hypomagnesemia Disorders of magnesium metabolism Type 2 diabetes mellitus with complication, without long-term current use of insulin (HCC) Subclinical hypothyroidism Other specified acquired hypothyroidism Chronic thoracic back pain, unspecified back pain laterality Depression, unspecified depression type Essential hypertension Unspecified essential hypertension documented in this encounter [facility] for referral (narrative)* Outpatient Procedure (Routine) - Authorized Specialty Diagnoses / Procedures Referred By Grzegorz blair Referred [facility] Diagnoses Bilateral carotid artery stenosis Procedures US CAROTID ARTERIES JOSSELINE VAS LAB DUPLEX SCAN EXTRACRANIAL ART COMPL BI STUDY Shaquille Benjamin MD [address] [place] [address] [facility] [address] [place] [id number] Referral ID Status Reason Start Date Expiration Date Visits Requested Visits Authorized [id number] Authorized Auto-Generat ed Referral 06/06/2022 06/06/2023 1 1 [facility] for referral (narrative)No reason for referral information availableDayton Q Interactive Services Work Phone: Advance Directives No Advanced Directives Records FoundDocuments on File Type Date Recorded Patient Audio/Visual Manager Expl anation Advance Directive(s) 02/26/2019 9:16 AM Advance Directive(s) 02/10/2019 2:19 PM Documents on File Type Date Recorded Patient Audio/Visual Manager Expl anation Advance Directive(s) 02/26/2019 9:16 AM Advance Directive(s) 02/10/2019 2:19 PM Advance Directive Response Recorded Date/ Time Living Will Yes November 04, 2018 4:17pm Power of Computer Patternmaker Yes October 4:17pm Advance Directive Response Recorded Date/ Time Name of Medical Power of Computer Patternmaker ERIN MEJIA October 25, 2021 2:53pm Living Will Yes October 25 2:53pm Power of Computer Patternmaker Yes October 25 2:53pm Reason for Referral Specialty Diagnoses / Procedures Referred By Contac t Referred To Contact Gastroenterology Diagnoses Dysphagia, unspecified type Procedures CONSULT TO GASTROENTEROLOGY Shaquille Benjamin MD [address] [place] [address] Referral ID Status Reason Start Date Expiration Date Visits Requested Visits Authorized [id number] Ref Not Required PCP Requested Referral 09/15/2021 09/15/2022 1 1 Specialty Diagnoses / Procedures Referred By Contac t Referred To Contact XR IMAGING Diagnoses Dysphagia, unspecified type Procedures XR ESOPHAGRAM RADIOLOGIC EXAM ESOPHAGUS SINGLE CONTRAST STUDY Shaqulile Benjamin MD [address] [place] [address] Xr Imaging Referral ID Status Reason Start Date Expiration Date Visits Requested Visits Authorized [id number] Pending Review Auto-Generat ed Referral 09/15/2021 10/15/2022 1 1 Specialty Diagnoses / Procedures Referred By Contac t Referred To Contact [facility] Diagnoses Acute midline thoracic back pain Chronic thoracic back pain, unspecified back pain laterality Primary osteoarthritis of both knees Cervical stenosis of spine Generalized weakness Procedures CONSULT TO PHYSICAL THERAPY PHYSICAL THERAPY EVALUATION [facility] 45 MINS Shaquille Benjamin MD [address] [place] [address] [facility] [address] [address] Referral ID Status Reason Start Date Expiration Date Visits Requested Visits Authorized [id number] Authorized PCP Requested Referral Auto-Generate d Referral 11/08/2021 11/08/2022 99 99 Specialty Diagnoses / Procedures Referred By Contac t Referred To Contact Podiatry Diagnoses Type 2 diabetes mellitus with complication, without long-term current use of insulin ([facility]) Onychomycosis Procedures CONSULT TO PODIATRY OFFICE/OUTPATIENT [facility] 60 MINUTES Shaquille Benjamin MD [address] [place] [address] Referral ID Status Reason Start Date Expiration Date Visits Requested Visits Authorized [id number] Authorized PCP Requested Referral 09/20/2023 09/19/2024 1 1 Specialty Diagnoses / Procedures Referred By Contac t Referred To Contact [facility] Diagnoses Spinal stenosis of lumbar region, unspecified whether neurogenic claudication present Gait disturbance Procedures CONSULT TO PHYSICAL THERAPY PHYSICAL THERAPY EVALUATION [facility] 45 MINS Shaquille Benjamin MD [address] [place] [address] [facility] [address] [address] Referral ID Status Reason Start Date Expiration Date Visits Requested Visits Authorized [id number] Authorized PCP Requested Referral Auto-Generate d Referral 12/23/2024 99 99 Chief Complaint and Reason for Visit Chief Complaint DYSPHAGIA Chief Complaint DYSPHAGIA Consult Localized swelling, mass and lump, head Reason for Visit Dysphagia Esophageal stenosis History of excision of Zenker's diverticulum Neck mass Chief Complaint Admit Date LAB WORK May 20, 2024 5:0 0am LABWORK May 27, 2024 5:00 am LAB WORK June 02, 2024 5:00 am LAB WORK June 10, 2024 5:0 0am LAB WORK June 16, 2024 4:0 0am LAB WORK June 23, 2024 5:0 0am LAB WORK June 30, 2024 5:00am MONTHLY EXAM August 04, 2024 4:45 pm SENIOR CARE LAB WORK August 11, 2024 5: 00am Chief Complaint Admit Date LABWORK May 27, 2024 5:00 am LAB WORK June 02, 2024 5:00 am LAB WORK June 10, 2024 5:0 0am LAB WORK June 16, 2024 4:0 0am LAB WORK June 23, 2024 5:0 0am LAB WORK June 30, 2024 5:00am MONTHLY EXAM June 30, 2024 3:44pm MONTHLY EXAM August 04, 2024 4:45 pm SENIOR CARE LAB WORK August 11, 2024 5: 00am Chief Complaint Admit Date LABWORK May 27, 2024 5:00 am LAB WORK June 02, 2024 5:00 am LAB WORK June 10, 2024 5:0 0am LAB WORK June 16, 2024 4:0 0am LAB WORK June 23, 2024 5:0 0am LAB WORK June 30, 2024 5:00am MONTHLY EXAM June 30, 2024 3:44pm NEW CONCERN July 08, 2024 3:43p m MONTHLY EXAM August 04, 2024 4:45 pm SENIOR CARE LAB WORK August 11, 2024 5: 00am Chief Complaint Admit Date LAB WORK June 10, 2024 5:0 0am LAB WORK June 16, 2024 4:0 0am LAB WORK June 23, 2024 5:0 0am LAB WORK June 30, 2024 5:00am MONTHLY EXAM June 30, 2024 3:44pm NEW CONCERN July 08, 2024 3:43p m MONTHLY EXAM August 04, 2024 4:45 pm SENIOR CARE LAB WORK August 11, 2024 5: 00am New Concern September 01, 2024 4:15p m Family History No Family History Records Found Relationship Condition Age at Onset Recorded Date/T femi mother Diabetes mellitus Unknown Hypertension Unknown Cerebrovascular accident (CVA) Unknown brother Cerebrovascular accident (CVA) Unknown Diabetes mellitus Unknown Summary Purpose Additional Source Comments Source Comments (unrecognize d section and content) In the event this informatio n is protected by the Federal Confidentiality of Alcohol and Drug Abuse Patient Records regulations: The Federal rules restrict any use of the information to criminally investigate or prosecute any alcohol or drug abuse patient.[facility] the event this information is protected by the Federal Confidentiality of Alcohol and Drug Abuse Patient Records regulations: The Federal rules restrict any use of the information to criminally investigate or prosecute any alcohol or drug abuse patient.[facility] HospitalIn the event this information is protected by the Federal Confidentiality of Alcohol and Drug Abuse Patient Records regulations: The Federal rules restrict any use of the information to criminally investigate or prosecute any alcohol or drug abuse patient.[facility] HospitalIn the event this information is protected by the Federal Confidentiality of Alcohol and Drug Abuse Patient Records regulations: The Federal rules restrict any use of the information to criminally investigate or prosecute any alcohol or drug abuse patient.[facility] HospitalIn the event this information is protected by the Federal Confidentiality of Alcohol and Drug Abuse Patient Records regulations: The Federal rules restrict any use of the information to criminally investigate or prosecute any alcohol or drug abuse patient.[facility] HospitalIn the event this information is protected by the Federal Confidentiality of Alcohol and Drug Abuse Patient Records regulations: The Federal rules restrict any use of the information to criminally investigate or prosecute any alcohol or drug abuse patient.[facility] HospitalIn the event this information is protected by the Federal Confidentiality of Alcohol and Drug Abuse Patient Records regulations: The Federal rules restrict any use of the information to criminally investigate or prosecute any alcohol or drug abuse patient.[facility] HospitalIn the event this information is protected by the Federal Confidentiality of Alcohol and Drug Abuse Patient Records regulations: The Federal rules restrict any use of the information to criminally investigate or prosecute any alcohol or drug abuse patient.[facility] HospitalIn the event this information is protected by the Federal Confidentiality of Alcohol and Drug Abuse Patient Records regulations: The Federal rules restrict any use of the information to criminally investigate or prosecute any alcohol or drug abuse patient.[facility] HospitalIn the event this information is protected by the Federal Confidentiality of Alcohol and Drug Abuse Patient Records regulations: The Federal rules restrict any use of the information to criminally investigate or prosecute any alcohol or drug abuse patient.[facility] HospitalIn the event this information is protected by the Federal Confidentiality of Alcohol and Drug Abuse Patient Records regulations: The Federal rules restrict any use of the information to criminally investigate or prosecute any alcohol or drug abuse patient.[facility] HospitalIn the event this information is protected by the Federal Confidentiality of Alcohol and Drug Abuse Patient Records regulations: The Federal rules restrict any use of the information to criminally investigate or prosecute any alcohol or drug abuse patient.[facility] HospitalIn the event this information is protected by the Federal Confidentiality of Alcohol and Drug Abuse Patient Records regulations: The Federal rules restrict any use of the information to criminally investigate or prosecute any alcohol or drug abuse patient.[facility] HospitalIn the event this information is protected by the Federal Confidentiality of Alcohol and Drug Abuse Patient Records regulations: The Federal rules restrict any use of the information to criminally investigate or prosecute any alcohol or drug abuse patient.[facility] HospitalIn the event this information is protected by the Federal Confidentiality of Alcohol and Drug Abuse Patient Records regulations: The Federal rules restrict any use of the information to criminally investigate or prosecute any alcohol or drug abuse patient.[facility] HospitalIn the event this information is protected by the Federal Confidentiality of Alcohol and Drug Abuse Patient Records regulations: The Federal rules restrict any use of the information to criminally investigate or prosecute any alcohol or drug abuse patient.[facility] HospitalIn the event this information is protected by the Federal Confidentiality of Alcohol and Drug Abuse Patient Records regulations: The Federal rules restrict any use of the information to criminally investigate or prosecute any alcohol or drug abuse patient.[facility] HospitalIn the event this information is protected by the Federal Confidentiality of Alcohol and Drug Abuse Patient Records regulations: The Federal rules restrict any use of the information to criminally investigate or prosecute any alcohol or drug abuse patient.[facility] HospitalIn the event this information is protected by the Federal Confidentiality of Alcohol and Drug Abuse Patient Records regulations: The Federal rules restrict any use of the information to criminally investigate or prosecute any alcohol or drug abuse patient.[facility] HospitalIn the event this information is protected by the Federal Confidentiality of Alcohol and Drug Abuse Patient Records regulations: The Federal rules restrict any use of the information to criminally investigate or prosecute any alcohol or drug abuse patient.[facility] HospitalIn the event this information is protected by the Federal Confidentiality of Alcohol and Drug Abuse Patient Records regulations: The Federal rules restrict any use of the information to criminally investigate or prosecute any alcohol or drug abuse patient.[facility] HospitalIn the event this information is protected by the Federal Confidentiality of Alcohol and Drug Abuse Patient Records regulations: The Federal rules restrict any use of the information to criminally investigate or prosecute any alcohol or drug abuse patient.[facility] HospitalIn the event this information is protected by the Federal Confidentiality of Alcohol and Drug Abuse Patient Records regulations: The Federal rules restrict any use of the information to criminally investigate or prosecute any alcohol or drug abuse patient.[facility] HospitalIn the event this information is protected by the Federal Confidentiality of Alcohol and Drug Abuse Patient Records regulations: The Federal rules restrict any use of the information to criminally investigate or prosecute any alcohol or drug abuse patient.[facility] HospitalIn the event this information is protected by the Federal Confidentiality of Alcohol and Drug Abuse Patient Records regulations: The Federal rules restrict any use of the information to criminally investigate or prosecute any alcohol or drug abuse patient.[facility] HospitalIn the event this information is protected by the Federal Confidentiality of Alcohol and Drug Abuse Patient Records regulations: The Federal rules restrict any use of the information to criminally investigate or prosecute any alcohol or drug abuse patient.[facility] HospitalIn the event this information is protected by the Federal Confidentiality of Alcohol and Drug Abuse Patient Records regulations: The Federal rules restrict any use of the information to criminally investigate or prosecute any alcohol or drug abuse patient.[facility] HospitalIn the event this information is protected by the Federal Confidentiality of Alcohol and Drug Abuse Patient Records regulations: The Federal rules restrict any use of the information to criminally investigate or prosecute any alcohol or drug abuse patient.[facility] HospitalIn the event this information is protected by the Federal Confidentiality of Alcohol and Drug Abuse Patient Records regulations: The Federal rules restrict any use of the information to criminally investigate or prosecute any alcohol or drug abuse patient.[facility] HospitalIn the event this information is protected by the Federal Confidentiality of Alcohol and Drug Abuse Patient Records regulations: The Federal rules restrict any use of the information to criminally investigate or prosecute any alcohol or drug abuse patient.[facility] HospitalIn the event this information is protected by the Federal Confidentiality of Alcohol and Drug Abuse Patient Records regulations: The Federal rules restrict any use of the information to criminally investigate or prosecute any alcohol or drug abuse patient.[facility] HospitalIn the event this information is protected by the Federal Confidentiality of Alcohol and Drug Abuse Patient Records regulations: The Federal rules restrict any use of the information to criminally investigate or prosecute any alcohol or drug abuse patient.[facility] HospitalIn the event this information is protected by the Federal Confidentiality of Alcohol and Drug Abuse Patient Records regulations: The Federal rules restrict any use of the information to criminally investigate or prosecute any alcohol or drug abuse patient.[facility] HospitalIn the event this information is protected by the Federal Confidentiality of Alcohol and Drug Abuse Patient Records regulations: The Federal rules restrict any use of the information to criminally investigate or prosecute any alcohol or drug abuse patient.[facility] HospitalIn the event this information is protected by the Federal Confidentiality of Alcohol and Drug Abuse Patient Records regulations: The Federal rules restrict any use of the information to criminally investigate or prosecute any alcohol or drug abuse patient.[facility] HospitalIn the event this information is protected by the Federal Confidentiality of Alcohol and Drug Abuse Patient Records regulations: The Federal rules restrict any use of the information to criminally investigate or prosecute any alcohol or drug abuse patient.[facility] HospitalIn the event this information is protected by the Federal Confidentiality of Alcohol and Drug Abuse Patient Records regulations: The Federal rules restrict any use of the information to criminally investigate or prosecute any alcohol or drug abuse patient.[facility] HospitalIn the event this information is protected by the Federal Confidentiality of Alcohol and Drug Abuse Patient Records regulations: The Federal rules restrict any use of the information to criminally investigate or prosecute any alcohol or drug abuse patient.[facility] HospitalIn the event this information is protected by the Federal Confidentiality of Alcohol and Drug Abuse Patient Records regulations: The Federal rules restrict any use of the information to criminally investigate or prosecute any alcohol or drug abuse patient.[facility] HospitalIn the event this information is protected by the Federal Confidentiality of Alcohol and Drug Abuse Patient Records regulations: The Federal rules restrict any use of the information to criminally investigate or prosecute any alcohol or drug abuse patient.[facility] HospitalIn the event this information is protected by the Federal Confidentiality of Alcohol and Drug Abuse Patient Records regulations: The Federal rules restrict any use of the information to criminally investigate or prosecute any alcohol or drug abuse patient.[facility] HospitalIn the event this information is protected by the Federal Confidentiality of Alcohol and Drug Abuse Patient Records regulations: The Federal rules restrict any use of the information to criminally investigate or prosecute any alcohol or drug abuse patient.[facility] HospitalIn the event this information is protected by the Federal Confidentiality of Alcohol and Drug Abuse Patient Records regulations: The Federal rules restrict any use of the information to criminally investigate or prosecute any alcohol or drug abuse patient.[facility] HospitalIn the event this information is protected by the Federal Confidentiality of Alcohol and Drug Abuse Patient Records regulations: The Federal rules restrict any use of the information to criminally investigate or prosecute any alcohol or drug abuse patient.[facility] HospitalIn the event this information is protected by the Federal Confidentiality of Alcohol and Drug Abuse Patient Records regulations: The Federal rules restrict any use of the information to criminally investigate or prosecute any alcohol or drug abuse patient.[facility] HospitalIn the event this information is protected by the Federal Confidentiality of Alcohol and Drug Abuse Patient Records regulations: The Federal rules restrict any use of the information to criminally investigate or prosecute any alcohol or drug abuse patient.[facility] HospitalIn the event this information is protected by the Federal Confidentiality of Alcohol and Drug Abuse Patient Records regulations: The Federal rules restrict any use of the information to criminally investigate or prosecute any alcohol or drug abuse patient.[facility] HospitalIn the event this information is protected by the Federal Confidentiality of Alcohol and Drug Abuse Patient Records regulations: The Federal rules restrict any use of the information to criminally investigate or prosecute any alcohol or drug abuse patient.[facility] HospitalIn the event this information is protected by the Federal Confidentiality of Alcohol and Drug Abuse Patient Records regulations: The Federal rules restrict any use of the information to criminally investigate or prosecute any alcohol or drug abuse patient.[facility] HospitalIn the event this information is protected by the Federal Confidentiality of Alcohol and Drug Abuse Patient Records regulations: The Federal rules restrict any use of the information to criminally investigate or prosecute any alcohol or drug abuse patient.[facility] HospitalIn the event this information is protected by the Federal Confidentiality of Alcohol and Drug Abuse Patient Records regulations: The Federal rules restrict any use of the information to criminally investigate or prosecute any alcohol or drug abuse patient.[facility] HospitalIn the event this information is protected by the Federal Confidentiality of Alcohol and Drug Abuse Patient Records regulations: The Federal rules restrict any use of the information to criminally investigate or prosecute any alcohol or drug abuse patient.[facility] HospitalIn the event this information is protected by the Federal Confidentiality of Alcohol and Drug Abuse Patient Records regulations: The Federal rules restrict any use of the information to criminally investigate or prosecute any alcohol or drug abuse patient.[facility] HospitalIn the event this information is protected by the Federal Confidentiality of Alcohol and Drug Abuse Patient Records regulations: The Federal rules restrict any use of the information to criminally investigate or prosecute any alcohol or drug abuse patient.[facility] Reason for Visit (unrecogniz ed section and content) Reason Onset Date Comments Refill Request 06/22/2021 Reason Onset Date Comments Refill Request 07/26/2021 Reason Comments Follow Up 3 month follow up Reason Onset Date Comments Refill Request 08/24/2021 Reason Comments Results Reason Onset Date Comments Refill Request 11/05/2021 Reason Comments Follow Up 3 month follow up Reason Comments PT Eval Patient Education Specialty Diagnoses / Procedures Referred By Grzegorz t Referred To Contact [facility] Diagnoses Acute midline thoracic back pain Chronic thoracic back pain, unspecified back pain laterality Primary osteoarthritis of both knees Cervical stenosis of spine Generalized weakness Procedures CONSULT TO PHYSICAL THERAPY PHYSICAL THERAPY EVALUATION [facility] 45 MINS Shaquille Benjamin MD [address] [place] [address] [facility] [address] [place] [address] Referral ID Status Reason Start Date Expiration Date Visits Requested Visits Authorized [id number] Authorized PCP Requested Referral Auto-Generate d Referral 11/08/2021 11/08/2022 99 99 Reason Onset Date Comments Refill Request 01/11/2022 Reason Onset Date Comments Refill Request 02/18/2022 Reason Comments Fall Diarrhea Reason Onset Date Comments Refill Request 04/03/2022 Needs today Reason Onset Date Comments Refill Request 05/14/2022 Reason Comments Follow Up Reason Comments Chicho bhagat Reason Onset Date Comments Refill Request 08/18/2022 Reason Onset Date Comments Refill Request 06/03/2023 Reason Onset Date Comments Refill Request 06/10/2023 Reason Onset Date Comments Refill Request 08/05/2023 Reason Onset Date Comments Refill Request 08/27/2023 Reason Onset Date Comments Refill Request 09/16/2023 Reason Comments Follow Up Reason Comments Orders Reason Onset Date Comments Refill Request 10/28/2023 Reason Comments New Nail Check Diabetic Foot Check Specialty Diagnoses / Procedures Referred By Grzegorz t Referred To Contact Podiatry Diagnoses Type 2 diabetes mellitus with complication, without long-term current use of insulin (HCC) Onychomycosis Procedures CONSULT TO PODIATRY OFFICE/OUTPATIENT NEW HIGH MDM 60 MINUTES Shaquille Benjamin MD [address] [place] [address] Referral ID Status Reason Start Date Expiration Date V isits Requested Visits Authorized [id number] Closed PCP Requested Referral 09/20/2023 09/19/2024 1 1 Reason Onset Date Comments Refill Request 11/11/2023 Reason Onset Date Comments Refill Request 11/29/2023 Reason Onset Date Comments Refill Request 11/30/2023 Reason Comments Low Back Pain Chronic, worse x5 da ys Reason Comments Acute Visit Weakness. ? Physical therapy Reason Onset Date Comments Refill Request 02/26/2024 Reason Onset Date Comments Refill Request 03/15/2024 Reason Onset Date Comments Population Health Navigation Outreach 05/20/2024 [facility] [place] Reason Onset Date Comments Population Health Navigation Outreach 06/22/2024 [facility] [place] PCSA Care Teams (unrecognized sec tion and content) Feed Inspection Supervisor Relationship Specialty Start Date End Date Shaquille Benjamin MD [address] [place] [address] PCP - General Family Practice 02/13/18 Feed Inspection Supervisor Relationship Specialty Start Date End Date Shaquille Benjamin MD [address] [place] [address] PCP - General Family Practice 02/13/18 Feed Inspection Supervisor Relationship Specialty Start Date End Date Shaquille Benjamin MD [address] [facility] [place] [address] PCP - General Family Practice 02/13/18 Feed Inspection Supervisor Relationship Specialty Start Date End Date Shaquille Benjamin MD [address] [facility] [place] [address] PCP - General Family Practice 02/13/18 Feed Inspection Supervisor Relationship Specialty Start Date End Date Shaquille Benjamin MD [address] [facility] [place] [address] PCP - General Family Practice 02/13/18 Feed Inspection Supervisor Relationship Specialty Start Date End Date Shaquille Benjamin MD [address] [place] [address] PCP - General Family Practice 02/13/18 Feed Inspection Supervisor Relationship Specialty Start Date End Date Shaquille Benjamin MD [address] [place] [address] PCP - General Family Practice 02/13/18 Feed Inspection Supervisor Relationship Specialty Start Date End Date Shaquille Benjamin MD [address] [place] [address] PCP - General Family Practice 02/13/18 Feed Inspection Supervisor Relationship Specialty Start Date End Date Shaquille Benjamin MD [address] [place] [address] PCP - General Family Practice 02/13/18 Feed Inspection Supervisor Relationship Specialty Start Date End Date Shaquille Benjamin MD [address] [place] [address] PCP - General Family Medicine 02/13/18 Feed Inspection Supervisor Relationship Specialty Start Date End Date Shaquille Benjamin MD [address] [place] [address] PCP - General Family Medicine 02/13/18 Feed Inspection Supervisor Relationship Specialty Start Date End Date Shaquille Benjamin MD [address] [place] [address] PCP - General Family Medicine 02/13/18 Feed Inspection Supervisor Relationship Specialty Start Date End Date Shaquille Benjamin MD [address] [place] [address] PCP - General Family Medicine 02/13/18 Feed Inspection Supervisor Relationship Specialty Start Date End Date Shaquille Benjamin MD [address] [place] [address] PCP - General Family Medicine 02/13/18 Feed Inspection Supervisor Relationship Specialty Start Date End Date Shaquille Benjamin MD [address] [place] [address] PCP - General Family Medicine 02/13/18 Feed Inspection Supervisor Relationship Specialty Start Date End Date Shaquille Benjamin MD [address] [place] [address] PCP - General Family Medicine 02/13/18 Feed Inspection Supervisor Relationship Specialty Start Date End Date Shaquille Benjamin MD [address] [place] [address] PCP - General Family Medicine 02/13/18 Feed Inspection Supervisor Relationship Specialty Start Date End Date Shaquille Benjamin MD [address] [place] [address] PCP - General Family Medicine 02/13/18 Feed Inspection Supervisor Relationship Specialty Start Date End Date Shaquille Benjamin MD [address] [place] [address] PCP - General Family Medicine 02/13/18 Feed Inspection Supervisor Relationship Specialty Start Date End Date Shaquille Benjamin MD [address] [place] [address] PCP - General Family Medicine 02/13/18 Feed Inspection Supervisor Relationship Specialty Start Date End Date Shaquille Benjamin MD [address] [place] [address] PCP - General Family Medicine 02/13/18 Feed Inspection Supervisor Relationship Specialty Start Date End Date Shaquille Benjamin MD [address] [place] [address] PCP - General Family Medicine 02/13/18 Feed Inspection Supervisor Relationship Specialty Start Date End Date Shaquille Benjamin MD [address] [place] [address] PCP - General Family Medicine 02/13/18 Feed Inspection Supervisor Relationship Specialty Start Date End Date Shaquille Benjamin MD [address] [place], [place] [address] PCP - General Family Medicine 02/13/18 Feed Inspection Supervisor Relationship Specialty Start Date End Date Shaquille Benjamin MD [address] [place], [place] [address] PCP - General Family Medicine 02/13/18 Feed Inspection Supervisor Relationship Specialty Start Date End Date Shaquille Benjamin MD [address] [place], [place] [address] PCP - General Family Medicine 02/13/18 Feed Inspection Supervisor Relationship Specialty Start Date End Date Shaquille Benjamin MD [address] [place] [address] PCP - General Family Medicine 02/13/18 Feed Inspection Supervisor Relationship Specialty Start Date End Date Shaquille Benjamin MD [address] [place], [place] [address] PCP - General Family Medicine 02/13/18 Feed Inspection Supervisor Relationship Specialty Start Date End Date Shaquille Benjamin MD [address] [place] [address] PCP - General Family Medicine 02/13/18 Feed Inspection Supervisor Relationship Specialty Start Date End Date Shaquille Benjamin MD [address] [place], [place] [address] PCP - General Family Medicine 02/13/18 Feed Inspection Supervisor Relationship Specialty Start Date End Date Shaquille Benjamin MD [address] [place], [place] [address] PCP - General Family Medicine 02/13/18 Feed Inspection Supervisor Relationship Specialty Start Date End Date Shaquille Benjamin MD [address] [place], [place] [address] PCP - General Family Medicine 02/13/18 Feed Inspection Supervisor Relationship Specialty Start Date End Date Shaquille Benjamin MD [address] [place], [place] [address] PCP - General Family Medicine 02/13/18 Feed Inspection Supervisor Relationship Specialty Start Date End Date Shaquille Benjamin MD [address] [place] [address] PCP - General Family Medicine 02/13/18 Feed Inspection Supervisor Relationship Specialty Start Date End Date Shaquille Benjamin MD [address] [place] [address] PCP - General Family Medicine 02/13/18 Feed Inspection Supervisor Relationship Specialty Start Date End Date Shaquille Benjamin MD [address] [place], [place] [address] PCP - General Family Medicine 02/13/18 Rajwinder Wilson APRN.GOLF COACH [address] [place] [address] Staff Field Engineer Family Medicine 02/03/24 Estefani Hector APRN.GOLF COACH [address] [place] [address] Staff Field Engineer Family Medicine 02/03/24 Feed Inspection Supervisor Relationship Specialty Start Date End Date Shaquille Benjamin MD [address] [place], [place] [address] PCP - General Family Medicine 02/13/18 Rajwinder Wilson MEN'S SWIM COACH.GOLF COACH [address] [facility] [place] [address] [facility] 02/03/24 Estefani Hector MEN'S SWIM COACH.GOLF COACH [address] [place] [address] [facility] 02/03/24 Feed Inspection Supervisor Relationship Specialty Start Date End Date Shaquille Benjamin MD [address] [place] [address] PCP - General Family Medicine 02/13/18 Rajwinder Wilson, MEN'S SWIM COACH.GOLF COACH [address] [place] [address] Staff [facility] 02/03/24 Estefani Hector MEN'S SWIM COACH.GOLF COACH [address] [facility] [place] [address] [facility] 02/03/24 Loraine Patterson, employee relations advisorPlaner Operator 03/16/24 Feed Inspection Supervisor Relationship Specialty Start Date End Date Shaquille Benjamin MD [address] [facility] [place] [address] PCP - General Family Medicine 02/13/18 Rajwinder Wilson, MEN'S SWIM COACH.GOLF COACH [address] [facility] [place] [address] [facility] 02/03/24 Estefani Hector MEN'S SWIM COACH.GOLF COACH [address] [facility] [place] [address] [facility] 02/03/24 Loraine Patterson, employee relations advisorPlaner Operator 03/16/24 Feed Inspection Supervisor Relationship Specialty Start Date End Date Shaquille Benjamin MD [address] [place] [address] PCP - General Family Medicine 02/13/18 Rajwinder Wilson, MEN'S SWIM COACH.GOLF COACH [address] [place] [address] Staff Field Engineer Family [facility] 02/03/24 Estefani Hector, MEN'S SWIM COACH.GOLF COACH [address] [place] [address] Staff Field Engineer Family Medicine 02/03/24 Loraine Patterson RN Planer Operator 03/16/24 Feed Inspection Supervisor Relationship Specialty Start Date End Date Shaquille Benjamin MD [address] [place] [address] PCP - General Family Medicine 02/13/18 Rajwinder Wilson, MEN'S SWIM COACH.GOLF COACH [address] [place] [address] Staff Field Engineer Family Medicine 02/03/24 Estefani Hector, MEN'S SWIM COACH.GOLF COACH [address] [place] [address] Staff Field Engineer Family Medicine 02/03/24 Loraine Patterson, employee relations advisorPlaner Operator 03/16/24 Feed Inspection Supervisor Relationship Specialty Start Date End Date Shaquille Benjamin MD [address] [facility] [place] [address] PCP - General Family Medicine 02/13/18 Rajwinder Wilson, MEN'S SWIM COACH.GOLF COACH [address] [place] [address] [facility] 02/03/24 Estefani Hector MEN'S SWIM COACH.GOLF COACH [address] [facility], [place] [address] [facility] 02/03/24 Loraine Patterson, employee relations advisorPlaner Operator 03/16/24 Feed Inspection Supervisor Relationship Specialty Start Date End Date Shaquille Benjamin MD [address] [facility], [place] [address] PCP - General Family Medicine 02/13/18 Rajwinder Wilson, ARMEN.GOLF COACH [address] [facility], [place] [address] [facility] 02/03/24 Estefani Hector, MEN'S SWIM COACH.GOLF COACH [address] [facility], [place] [id number] [facility] 02/03/24 Team Status: Active Member Role/Relationship Status Dates Dr. Shaquille Benjamin MD Primary Care Provider Active Team Status: Active Member Role/Relationship Status Dates Senia CHACKO MD Attending Provider Active Start: May 20, 2024 Shaquille CHACKO Primary Care Provider Active St art: May 20, 2024 Team Status: Active Member Role/Relationship Status Dates Dr. Shaquille Benjamin MD Primary Care Provider Active Start: May 27, 2024 Senia CHACKO MD Attending Provider Active Start: May 27, 2024 Team Status: Active Member Role/Relationship Status Dates Dr. Shaquille Benjamin MD Primary Care Provider Active Start: June 02, 2024 Senia CHACKO MD Attending Provider Active Start: June 02, 2024 Team Status: Active Member Role/Relationship Status Dates Dr. Shaquille Benjamin MD Primary Care Provider Active Start: June 10, 2024 Senia CHACKO MD Attending Provider Active Start: June 10, 2024 Team Status: Active Member Role/Relationship Status Dates Dr. Shaquille Benjamin MD Primary Care Provider Active Start: June 16, 2024 Senia CHACKO MD Attending Provider Active Start: June 16, 2024 Senia CHACKO MD Referring Provider Active Start: June 16, 2024 Team Status: Active Member Role/Relationship Status Dates Dr. Shaquille Benjamin MD Primary Care Provider Active Start: June 23, 2024 Senia CHACKO MD Attending Provider Active Start: June 23, 2024 Team Status: Active Member Role/Relationship Status Dates Dr. Shaquille Benjamin MD Primary Care Provider Active Start: June 30, 2024 Senia CHACKO MD Attending Provider Active Start: June 30, 2024 Team Status: Inactive Member Role/Relationship Status Dates Dr. Shaquille Benjamin MD Primary Care Provider Active Start: August 04, 2024 End: August 04, 2024 Dr. Senia Billy MD Attending Provider Active Start: August 04, 2024 End: August 04, 2024 Team Status: Active Member Role/Relationship Status Dates Dr. Shaquille Benjamin MD Primary Care Provider Active Start: August 11, 2024 Senia CHACKO MD Attending Provider Active Start: August 11, 2024 Team Status: Active Member Role/Relationship Status Dates Dr. Shaquille Benjamin MD Primary Care Provider Active Start: May 27, 2024 Senia CHACKO MD Attending Provider Active Start: May 27, 2024 Team Status: Active Member Role/Relationship Status Dates Dr. Shaquille Benjamin MD Primary Care Provider Active Start: June 02, 2024 Senia CHACKO MD Attending Provider Active Start: June 02, 2024 Team Status: Active Member Role/Relationship Status Dates Dr. Shaquille Benjamin MD Primary Care Provider Active Start: June 10, 2024 Senia CHACKO MD Attending Provider Active Start: June 10, 2024 Team Status: Active Member Role/Relationship Status Dates Dr. Shaquille Benjamin MD Primary Care Provider Active Start: June 16, 2024 Senia CHACKO MD Attending Provider Active Start: June 16, 2024 Senia CHACKO MD Referring Provider Active Start: June 16, 2024 Team Status: Active Member Role/Relationship Status Dates Dr. Shaquille Benjamin MD Primary Care Provider Active Start: June 23, 2024 Senia CHACKO MD Attending Provider Active Start: June 23, 2024 Team Status: Active Member Role/Relationship Status Dates Dr. Shaquille Benjamin MD Primary Care Provider Active Start: June 30, 2024 Senia CHACKO MD Attending Provider Active Start: June 30, 2024 Team Status: Inactive Member Role/Relationship Status Dates Dr. Shaquille Benjamin MD Primary Care Provider Active Start: June 30, 2024 End: June 30, 2024 Oly Jane NP, TECHNICIAN [employer]-C Attending Provider Active Start: June 30, 2024 End: June 30, 2024 Team Status: Inactive Member Role/Relationship Status Dates Dr. Shaquille Benjamin MD Primary Care Provider Active Start: July 08, 2024 End: July 08, 2024 Oly Jane TECHNICIAN [employer], TECHNICIAN [employer]-C Attending Provider Active Start: July 08, 2024 End: July 08, 2024 Team Status: Inactive Member Role/Relationship Status Dates Dr. Shaquille Benjamin MD Primary Care Provider Active Start: August 04, 2024 End: August 04, 2024 Dr. Senia Billy MD Attending Provider Active Start: August 04, 2024 End: August 04, 2024 Team Status: Active Member Role/Relationship Status Dates Dr. Shaquille Benjamin MD Primary Care Provider Active Start: August 11, 2024 Senia CHACKO MD Attending Provider Active Start: August 11, 2024 Team Status: Active Member Role/Relationship Status Dates Dr. Shaquille Benjamin MD Primary Care Provider Active Start: June 10, 2024 Senia CHACKO MD Attending Provider Active Start: June 10, 2024 Team Status: Active Member Role/Relationship Status Dates Dr. Shaquille Benjamin MD Primary Care Provider Active Start: June 16, 2024 Senia CHACKO MD Attending Provider Active Start: June 16, 2024 Senia CHACKO MD Referring Provider Active Start: June 16, 2024 Team Status: Active Member Role/Relationship Status Dates Dr. Shaquille Benjamin MD Primary Care Provider Active Start: June 23, 2024 Senia CHACKO MD Attending Provider Active Start: June 23, 2024 Team Status: Active Member Role/Relationship Status Dates Dr. Shaquille Benjamin MD Primary Care Provider Active Start: June 30, 2024 Senia CHACKO MD Attending Provider Active Start: June 30, 2024 Team Status: Inactive Member Role/Relationship Status Dates Dr. Shaquille Benjamin MD Primary Care Provider Active Start: June 30, 2024 End: June 30, 2024 Oly Jane NP TECHNICIAN [employer]-C Attending Provider Active Start: June 30, 2024 End: June 30, 2024 Team Status: Inactive Member Role/Relationship Status Dates Dr. Shaquille Benjamin MD Primary Care Provider Active Start: July 08, 2024 End: July 08, 2024 Oly Jane NP TECHNICIAN [employer]-C Attending Provider Active Start: July 08, 2024 End: July 08, 2024 Team Status: Inactive Member Role/Relationship Status Dates Dr. Shaquille Benjamin MD Primary Care Provider Active Start: August 04, 2024 End: August 04, 2024 Dr. Senia Billy MD Attending Provider Active Start: August 04, 2024 End: August 04, 2024 Team Status: Active Member Role/Relationship Status Dates Dr. Shaquille Benjamin MD Primary Care Provider Active Start: August 11, 2024 Senia CHACKO MD Attending Provider Active Start: August 11, 2024 Team Status: Inactive Member Role/Relationship Status Dates Dr. Shaqulile Benjamin MD Primary Care Provider Active Start: September 01, 2024 End: September 01, 2024 Dr. Senia Billy MD Attending Provider Active Start: September 01, 2024 End: September 01, 2024 Goals (unrecognized section and content) Goals may be documented in a n alternate sectionGoals may be documented in an alternate sectionGoals may be documented in an alternate sectionGoals may be documented in an alternate sectionGoals may be documented in an alternate section INFORMATION SOURCE (unrecogn ized section and content) DATE CREATED AUTHOR 05/06/2024 [facility] DATE CREATED AUTHOR AUTHOR'S ORGANIZ ATION 06/23/2024 [facility] DATE CREATED AUTHOR AUTHOR'S ORGANIZ ATION 10/06/2024 [facility] FOR RECORDS PERTAINING TO PATIENTS WHO ARE OR HAVE BEEN ENROLLED IN A CHEMICAL DEPENDENCY/SUBSTANCEABUSE PROGRAM, SOME INFORMATION MAY BE OMITTED. This clinical summary was aggregated from multiple sources. Caution should be exercised in using it in the provision of clinical care. This summary normalizes information from multiple sources, and as a consequence, information in this document may materially change the coding, format and clinical context of patient data. In addition, data may be omitted in some cases. CLINICAL DECISIONS SHOULD BE BASED ON THE PRIMARY CLINICAL RECORDS. [facility]. provides no warranty or guarantee of the accuracy or completeness of information in this document.
[2024-10-13 07:16] LABS: Hematocrit 30.6 % (37-47); Hemoglobin 9.5 g/dL (12.0-15.0); Immature Granulocytes Count 0.020 X10^3/uL (0.0-0.0); Mean Corp Hgb Conc 31.0 g/dL (32-36); Mean Corpuscular Volume 93.0 fL (81-99); Mean Platelet Vol. 9.7 fl (6.2-12.0); NRBC Flagged by Analyzer 0 % (0-5); Platelet Count 192 K/mm3 (150-450); RBC Distribution Width CV 14.2 % (11.6-14.6); RBC Distribution Width SD 48.5 fl (35.1-43.9); Red Blood Count 3.29 M/mm3 (4.2-5.4); White Blood Count 4.5 K/mm3 (4.4-11.0)
[2024-10-13 07:35] LABS: Magnesium 1.3 mg/dL (1.5-2.2)
[2024-10-13 07:39] LABS: AST(SGOT) 17 U/L (<=31); Alanine Aminotransfer ALT/SGPT < 5 U/L (<=34); Albumin, Serum 3.3 g/dL (3.4-4.8); Alkaline Phosphatase 52 U/L (35-104); Anion Gap 9 (5-15); BUN 21 mg/dL (4-19); BUN/Creat Ratio 28.7 RATIO (10-20); Calcium,Total 9.1 mg/dL (7.6-11.0); Carbon Dioxide 26.0 mmol/L (21.0-32.0); Chloride 100 mmol/L (98-108); Globulin 2.5 g/dL (2.2-4.2); Glucose 77 mg/dL (70-99); Potassium 4.1 mmol/L (3.3-5.1)
== END ==
LOC: OLS.WHLEAS 04:00
PROVIDERS: PCP Family Medicine; Referring Provider Internal Medicine; Visit Provider Internal Medicine
DX: I10 Essential (primary) hypertension (principal); E11.44 Type 2 diabetes mellitus with diabetic amyotrophy; M62.561 Muscle wasting and atrophy, not elsewhere classified, right lower leg
CPT/HCPCS: 36415; 80053; 83735; 85025

== ENCOUNTER → 2024-11-10 05:00 | Outpatient (REF) | payer MEDICARE, BC, SELFPAY ==
--- OUTSIDE RECORDS SUMMARY | 2024-11-10 04:11 | XMS RPT_ITS | CCD ---
Author Organization [facility] Care Team Providers Care Cloth Roll Winder Name Role Phone Shaquille Benjamin MD Primary Care Provider Dr. Shaquille Benjamin Primary Care Provider Dr. Shaquille Benjamin Referring Provider Blanca SEWAGE SCREEN OPERATOR, SEWAGE SCREEN OPERATOR-Janette Olmos Attending Provider Friend, Dr. Castanon Attending Provider Friend, Dr. Castanon Other Provider Shaquille Benjamin MD Primary Care Provider Shaquille Benjamin MD Primary Care Provider Shaquille Benjamin MD Primary Care Provider Shaquille Benjamin MD Primary Care Provider Haagen CAFETERIA ATTENDANT.Rajwinder KHALIL Unavailable Suppan CAFETERIA ATTENDANT.BEHAVIORAL INSTRUCTOR, Estefani A Unavailable Suppan CAFETERIA ATTENDANT.BEHAVIORAL INSTRUCTOR, Estefani A Unavailable [phone] Suppan CAFETERIA ATTENDANT.BEHAVIORAL INSTRUCTOR, Estefani A Unavailable [phone] Loraine Patterson RN Unavailable Unavailable CODY WEAVER FACP, JUAN Umaña Attending Unavail able SHAQUILLE BENJAMIN MD Care Unavailable LARISSA SPENCER Admitting Unavaila Loraine Polk RN Unavailable Unavailable SHAQUILLE BENJAMIN Referring Unavailable JOCELYN BROTHERS Attending Unavailable SHAQUILLE BENJAMIN Primary Care Unavailable SHAQUILLE BENJAMIN Referring Unavailable SHAQUILLE BENJAMIN Primary Care Unavailable SHAQUILLE BNEJAMIN Attending Unavailable SHAQUILLE BENJAMIN Primary Care Unavailable SHAQUILLE BENJAMIN Attending Unavailable SOURAV, SHAQUILLE J Primary Care Unavailable SOURAV, SHAQUILLE Tellez Attending Unavailable SOURAV, SHAQUILLE Tellez Primary Care Unavailable [facility], SHAQUILLE Tellez Primary Care Unavailable Senia Billy MD Attending Provider Unavaila ble Sourav CHACKO, Shaquille Primary Care Provider Unavaila catarina Benjamin MD, Dr. Corbin Primary Care Provider Senia Billy MD Referring Provider Unavaila catarina Billy MD, Dr. Conn Attending Provider Senia Billy MD Attending Provider Unavaila catarina Jane SEWAGE SCREEN OPERATOR-C, Oly Attending Provider Sourav WEAVER, Dr. Corbin Primary Care Provider Senia Billy MD Attending Provider Unavaila Nichole Lara Admitting Unavailable Nichole Bautista Consulting Unavailable Simon Mcfarland Attending Unavailable Vida, Shaquille Primary Care Unavailable Simon Mcfarland Consulting Unavailable Oleghe OLS, Catherinebe Attending Unavailabl e Vida, Shaquille Primary Care Unavailable Oleghe OLS, Efewongbe Referring Unavailabl e Oleghe OLS, Catherinebe Attending Unavailabl e Vida, Shaquille Primary Care Unavailable Oleghe OLS, Efsunilongbe Attending Unavailabl e Vida, Shaquille Primary Care Unavailable Oleghe OLS, Efsunilongbe Attending Unavailabl e Vida, Shaquille Primary Care Unavailable Oleghe, Catherinebe Attending Unavailable Vida, Shaquille Primary Care Unavailable Vida, Shaquille Primary Care Unavailable Oly Jane Attending Unavailable Oly Jane Attending Unavailable Vida, Shaquille Primary Care Unavailable Oleghe OLS, Efewongbe Attending Unavailabl e Vida, Shaquille Primary Care Unavailable Oleghe OLS, Efewongbe Referring Unavailabl e Vida, Shaquille Primary Care Unavailable Oleghe OLS, Efewongbe Attending Unavailabl e Vida, Shaquille Primary Care Unavailable Oleghe OLS, Efsunilongbe Attending Unavailabl e Nichole Bautista Consulting Unavailable Nichole Bautista Admitting Unavailable Simon Mcfarland Attending Unavailable Vida, Shaquille Primary Care Unavailable Vida, Shaquille Referring Unavailable Lg Kirkland Attending Unavailable Vida, Shaquille Primary Care Unavailable Oleghe OLS, Efewongbe Referring Unavailabl e Oleghe OLS, Efsunilongbe Attending Unavailabl e Vida, Shaquille Primary Care Unavailable Nichole Bautista Attending Unavailable [facility] Shaquille Referring Unavailable Em Duggan Attending Unavailable [facility], Shaquille Primary Care Unavailable Senia Gorman Attending UnavailLg Estevez Attending Unavailable Vida, Shaquille Primary Care Unavailable OlelyssaSenia Rivas Attending Unavailabl e Sourav, Shaquille Primary Care Unavailable Eldere Catherine CHACKObe [facility] [place], Shaquille Primary Care Unavailable Senia Billy Attending Unavailable Vida, Shaquille Primary Care Unavailable Oly Jane Attending Unavailable Vida, Shaquille Primary Care Unavailable Oly Jane Attending Unavailable Vida, Shaquille Primary Care Unavailable Senia Billy Attending Unavailable [facility] Shaquille Primary Care Unavailable VidaShaquille Referring Unavailable Lg Kirkland Attending Unavailable FriendLg Consulting Unavailable [facility] Primary Care Unavailable Allergies Allergy Classification Reported Allergen(s) Allergy Type Date of Onset Reaction(s) Facility (20 sources) Penicillin; Translations: [PENICILLIN] Drug Allergy 10-14-2017 [facility] (20 sources) SITagliptin; Translations: [SITAGLIPTIN] Drug Allergy 10-14-2017 [facility] Work Phone: (7 sources) Penicillins; Translations: [Penicillins] Allergy to substance 09-28-2021 Unknown [facility] (1 source) SITagliptin Drug Allergy 04-16-2024 [facility] Repository Medications Current Medications Medication Drug Class(es) [...] daily. docusate sodium 50 mg / sennosides, care home 8.6 mg oral tablet (4 sources) Start: 04-19-19 Sennosides-Docusate Sodium (Stimulant Laxative Plus) 8.6-50 mg Tablet Active 2 {tbl} PO TWICE A DAY 0 April 19, 2024 1:00am levothyroxine sodium [...] Take 1 tablet by patrick once daily. oxyCODONE hydrochloride 5 mg oral [...] release oral tablet (7 sources) Aminoketone Start: End: take 1 tablet by mouth [...] mouth once daily Duloxetine 60 mg capsule,delayed release(/EC) Discontinued 60 mg PO DAILY April 13, 2019 1:00am March 23, 2021 2:07pm Magnesium (12 sources) Start: 07-31-19 End: 09-20-19 24 take 2 tablets by [...] Comment on above: Take 1,000 mcg by [facility] once daily. vitamin C75-slpdhql B1 1,000 mcg-100 mg/mL injection solution (2 sources) Start: 9 End: 9 inject 1 mL by intramuscular injection every month vitamin K95-zxfibrg B1 1,000 mcg-100 mg/mL injection solution Discontinued 1 ML IM EVERY MONTH October 08, 2018 12:00am October 09, 2018 1:43pm Vitamin V23-Raiycbv B1 1,000-100 mg/mL solution (4 sources) Start: 9 End: 9 inject 1 mL by intramuscular injection every month Vitamin J07-Enwyfnr B1 1,000-100 mg/mL solution Discontinued 1 mL IM EVERY MONTH 0 October 08, 2018 12:00am October 09, 2018 1:43pm Vitamins A,C,U-Zatu-Ptkazb (Preservision Areds) [id number] halp-kq-wlhq capsule (6 sources) Start: 0 End: 4 Vitamins A,C,D-Ardl-Cmbfvm (Preservision Areds) 14,320226-200 akpd-yj-atrg capsule Discontinued 1 NMA PO TWICE A DAY April 13, 2019 1:00am February 07, 2024 4:42pm Start: 04-13-2019 take 1 capsule by mo [facility] twice daily Vitamins A,C,T-Jeou-Biszrm (Preservision Areds) [id number] stjs-ac-xsgi capsule Active 1 CAP PO TWICE A [...] Coronary arteriosclerosis; Translations: [Atherosclerotic heart disease of [place] coronary artery without angina pectoris] Onset: 8 [...] Chronic Comment on above: CONTROLLED ON MED Fracture of upper limb (7 sources) Closed fracture of upper end of humerus; Translations: [Unspecified fracture of upper end of right humerus, initial encounter for closed fracture] Onset: 5 04-16-2024 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 TSH DL <= 0.005 mIU/L QnOrde red By: Senia Billy on 08-11-2024 TSH Qn 2.650 uIU/mL 0.300-4.200 [facility] Absolute lymphocyte countOrd ered By: Senia Billy on 06-30-2024 Lymphocytes Auto (Unsp spec) [#/Vol] 1.29 10*3/uL 0.83-4.51 [facility] Absolute neutrophil countOrd ered By: Senia Billy on 06-30-2024 Neutrophils (Bld) [#/Vol] 2.9 10*3/uL 2.0-7.7 [facility] Anion gap in Serum or Plasma Ordered By: Senia Billy on 06-30-2024 Anion gap [Moles/Vol] 10 mmol/L 5-15 [facility] Automated lymphocyte count a s percentage of total leukocytesOrdered By: Senia Billy on 06-30-2024 Lymphocytes/100 WBC Auto (Unsp spec) 26.8 % 19-41 [facility] BUN/creatinine ratioOrdered By: emma Billy on 06-30-2024 Urea nitrogen/Creatinine [Mass ratio] 18.6 mg/mg 10-20 [facility] Basophil percentageOrdered B y: Senia Billy on 06-30-2024 Basophils/100 WBC (Bld) 0.4 % 0-1 [facility] Carbon dioxide, total [Moles /volume] in Central venous bloodOrdered By: Senia Billy on 06-30-2024 CO2 [Moles/Vol] 25.5 mmol/L 21.0-32.0 [facility] Chloride assayOrdered By: Constance Billy on 06-30-2024 Chloride [Moles/Vol] 99 mmol/L 98-108 [facility] Eosinophil percentageOrdered By: Senia Billy on 06-30-2024 Eosinophils/100 WBC (Bld) 2.9 % 0-5 [facility] Erythrocyte distribution wid th ratioOrdered By: emma Billy on 06-30-2024 Erythrocyte distribution width (RBC) [Ratio] 15.6 % High 11.6-14.6 [facility] Erythrocyte distribution wid th standard deviationOrdered By: sunilsouth roxanawilson Billy on 06-30-2024 Erythrocyte distribution width (RBC) [Ratio] 53.9 fl High 35.1-43.9 [facility] Glomerular filtration rate ( GFR) estimation/1.73 sq m using serum, plasma, or whole bOrdered By: Senia Billy on 06-30-2024 GFR/1.73 sq M.predicted among non-blacks MDRD (S/P/Bld) [Vol rate/Area] 65 mL/min/{1.73_m2} >60 [facility] Comment on above: mL/min/1.73m2 CKD-EP I Creatinine Equation (2020) Hematocrit Auto (Bld) [Volum e fraction]Ordered By: Senia Billy on 06-30-2024 Hematocrit (Bld) [Volume fraction] 31.8 % Low 37-47 [facility] Hemoglobin measurementOrdere d By: Senia Billy on 06-30-2024 Hemoglobin (Bld) [Mass/Vol] 10.3 g/dL Low 12.0-15.0 [facility] Immature granulocytes/100 WB C Auto (Bld)Ordered By: Senia Billy on 06-30-2024 Immature granulocytes/100 WBC (Bld) 0.400 % 0.0-0.9 [facility] Comment on above: IG% - Immature Granu locytes (promyelocytes, myelocytes and metamyelocytes) > 1% indicates that a LEFT SHIFT is Present. MCV (mean corpuscular volume ) determinationOrdered By: Senia Billy on 06-30-2024 MCV (RBC) [Entitic vol] 94.4 fL 81-99 [facility] Mean corpuscular hemoglobin (MCH) determinationOrdered By: Senia Billy on 06-30-2024 MCH (RBC) [Entitic mass] 30.6 pg 27.0-32.0 [facility] Mean corpuscular hemoglobin concentration (MCHC) determinationOrdered By: Senia Billy on 06-30-2024 MCHC (RBC) [Mass/Vol] 32.4 g/dL 32-36 [facility] Mean platelet volume determi nationOrdered By: Senia Billy on 06-30-2024 Platelet mean volume (Bld) [Entitic vol] 9.1 fL 6.2-12.0 [facility] Monocyte percentageOrdered B y: Senia Billy on 06-30-2024 Monocytes/100 WBC (Bld) 8.7 % 0-10 [facility] Neutrophil percentageOrdered By: [facility] Hospitalwilson Billy on 06-30-2024 Neutrophils/100 WBC (Bld) 60.8 % 47-70 [facility] Nucleated red blood cell per centageOrdered By: Senia Billy on 06-30-2024 Nucleated RBC/100 WBC (Bld) [Ratio] 0 % 0-5 [facility] Platelet countOrdered By: Constance Billy on 06-30-2024 Platelets (Bld) [#/Vol] 200 10*3/uL 150-450 [facility] Potassium measurement (mass/ volume)Ordered By: Senia Billy on 06-30-2024 Potassium (Unsp spec) [Mass/Vol] 4.0 mmol/L 3.3-5.1 [facility] RBC Auto (Bld) [#/Vol]Ordere d By: Senia Billy on 06-30-2024 RBC (Bld) [#/Vol] 3.37 10*6/uL Low 4.2-5.4 [facility] Serum creatinine measurement (mass/volume)Ordered By: Senia Billy on 06-30-2024 Creatinine [Mass/Vol] 0.85 mg/dL 0.70-1.20 [facility] Serum glucose measurement (m ass/volume)Ordered By: Senia Billy on 06-30-2024 Glucose [Mass/Vol] 84 mg/dL 70-99 [facility] Serum or plasma calcium soni urement (mass/volume)Ordered By: Senia Billy on 06-30-2024 Calcium [Mass/Vol] 8.6 mg/dL 7.6-11.0 [facility] Serum or plasma urea nitroge n measurement (mass/volume)Ordered By: Senia Billy on 06-30-2024 Urea nitrogen [Mass/Vol] 16 mg/dL 4-19 [facility] Sodium levelOrdered By: Beckie leighdarrellbeatriz Billy on 06-30-2024 Sodium [Moles/Vol] 134 mmol/L 133-145 [facility] White blood cell (WBC) count Ordered By: Senia Billy on 06-30-2024 WBC (Bld) [#/Vol] 4.8 10*3/uL 4.4-11.0 [facility] Absolute lymphocyte countOrd ered By: Senia Billy on 06-23-2024 Lymphocytes Auto (Unsp spec) [#/Vol] 1.63 10*3/uL 0.83-4.51 [facility] Absolute neutrophil countOrd ered By: Senia Billy on 06-23-2024 Neutrophils (Bld) [#/Vol] 2.5 10*3/uL 2.0-7.7 [facility] Anion gap in Serum or Plasma Ordered By: Senia Billy on 06-23-2024 Anion gap [Moles/Vol] 8 mmol/L 5-15 [facility] Automated lymphocyte count a s percentage of total leukocytesOrdered By: Senia Billy on 06-23-2024 Lymphocytes/100 WBC Auto (Unsp spec) 33.9 % 19-41 [facility] BUN/creatinine ratioOrdered By: Senia Friedmanbeatriz on 06-23-2024 Urea nitrogen/Creatinine [Mass ratio] 18.1 mg/mg 10-20 [facility] Basophil percentageOrdered B y: Senia Billy on 06-23-2024 Basophils/100 WBC (Bld) 0.6 % 0-1 [facility] Carbon dioxide, total [Moles /volume] in Central venous bloodOrdered By: Senia Rexlyssabeatriz on 06-23-2024 CO2 [Moles/Vol] 27.9 mmol/L 21.0-32.0 [facility] Chloride assayOrdered By: Constance emma Rexlyssabeatriz on 06-23-2024 Chloride [Moles/Vol] 100 mmol/L 98-108 [facility] Eosinophil percentageOrdered By: Senia Rexlyssabeatriz on 06-23-2024 Eosinophils/100 WBC (Bld) 3.3 % 0-5 [facility] Erythrocyte distribution wid th ratioOrdered By: Senia Rexlyssabeatriz on 06-23-2024 Erythrocyte distribution width (RBC) [Ratio] 15.8 % High 11.6-14.6 [facility] Erythrocyte distribution wid th standard deviationOrdered By: sunilsouth roxanawilson Rexlyssabeatriz on 06-23-2024 Erythrocyte distribution width (RBC) [Ratio] 57.2 fl High 35.1-43.9 [facility] Glomerular filtration rate ( GFR) estimation/1.73 sq m using serum, plasma, or whole bOrdered By: Senia Rexlyssabeatriz on 06-23-2024 GFR/1.73 sq M.predicted among non-blacks MDRD (S/P/Bld) [Vol rate/Area] 65 mL/min/{1.73_m2} >60 [facility] Comment on above: mL/min/1.73m2 CKD-EP I Creatinine Equation (2020) Hematocrit Auto (Bld) [Volum e fraction]Ordered By: Senia Billy on 06-23-2024 Hematocrit (Bld) [Volume fraction] 31.3 % Low 37-47 [facility] Hemoglobin measurementOrdere d By: Senia Billy on 06-23-2024 Hemoglobin (Bld) [Mass/Vol] 9.8 g/dL Low 12.0-15.0 [facility] Immature granulocytes/100 WB C Auto (Bld)Ordered By: Senia Billy on 06-23-2024 Immature granulocytes/100 WBC (Bld) 0.400 % 0.0-0.9 [facility] Comment on above: IG% - Immature Granu locytes (promyelocytes, myelocytes and metamyelocytes) > 1% indicates that a LEFT SHIFT is Present. MCV (mean corpuscular volume ) determinationOrdered By: Senia Billy on 06-23-2024 MCV (RBC) [Entitic vol] 96.9 fL 81-99 [facility] Mean corpuscular hemoglobin (MCH) determinationOrdered By: Senia Billy on 06-23-2024 MCH (RBC) [Entitic mass] 30.3 pg 27.0-32.0 [facility] Mean corpuscular hemoglobin concentration (MCHC) determinationOrdered By: Senia Billy on 06-23-2024 MCHC (RBC) [Mass/Vol] 31.3 g/dL Low 32-36 [facility] Mean platelet volume determi nationOrdered By: Senia Billy on 06-23-2024 Platelet mean volume (Bld) [Entitic vol] 9.2 fL 6.2-12.0 [facility] Monocyte percentageOrdered B y: Senia Billy on 06-23-2024 Monocytes/100 WBC (Bld) 9.6 % 0-10 [facility] Neutrophil percentageOrdered By: Senia Billy on 06-23-2024 Neutrophils/100 WBC (Bld) 52.2 % 47-70 [facility] Nucleated red blood cell per centageOrdered By: emma Billy on 06-23-2024 Nucleated RBC/100 WBC (Bld) [Ratio] 0 % 0-5 [facility] Platelet countOrdered By: Constance Billy on 06-23-2024 Platelets (Bld) [#/Vol] 204 10*3/uL 150-450 [facility] Potassium measurement (mass/ volume)Ordered By: Senia Billy on 06-23-2024 Potassium (Unsp spec) [Mass/Vol] 4.3 mmol/L 3.3-5.1 [facility] RBC Auto (Bld) [#/Vol]Ordere d By: Senia Billy on 06-23-2024 RBC (Bld) [#/Vol] 3.23 10*6/uL Low 4.2-5.4 [facility] Serum creatinine measurement (mass/volume)Ordered By: Constancesunilcariwilson Goodmanlyssabeatriz on 06-23-2024 Creatinine [Mass/Vol] 0.85 mg/dL 0.70-1.20 [facility] Serum glucose measurement (m ass/volume)Ordered By: Constanceemma Goodmanlyssabeatriz on 06-23-2024 Glucose [Mass/Vol] 75 mg/dL 70-99 [facility] Serum or plasma calcium soni urement (mass/volume)Ordered By: Constanceemma Goodmanlyssabeatriz on 06-23-2024 Calcium [Mass/Vol] 8.6 mg/dL 7.6-11.0 [facility] Serum or plasma urea nitroge n measurement (mass/volume)Ordered By: Constancesunilcariwilson Goodmanlyssabeatriz on 06-23-2024 Urea nitrogen [Mass/Vol] 15 mg/dL 4-19 [facility] Sodium levelOrdered By: Beckie Billy on 06-23-2024 Sodium [Moles/Vol] 135 mmol/L 133-145 [facility] White blood cell (WBC) count Ordered By: Constancesunilcariwilson Goodmanlyssabeatriz on 06-23-2024 WBC (Bld) [#/Vol] 4.8 10*3/uL 4.4-11.0 [facility] Absolute lymphocyte countOrd ered By: Constancesunilcariwilson Goodmanlyssabeatriz on 06-16-2024 Lymphocytes Auto (Unsp spec) [#/Vol] 1.53 10*3/uL 0.83-4.51 [facility] Absolute neutrophil countOrd ered By: eSnia Rexlyssabeatriz on 06-16-2024 Neutrophils (Bld) [#/Vol] 3.1 10*3/uL 2.0-7.7 [facility] Anion gap in Serum or Plasma Ordered By: Catherinewilson Goodmanlyssabeatriz on 06-16-2024 Anion gap [Moles/Vol] 9 mmol/L 5-15 [facility] Automated lymphocyte count a s percentage of total leukocytesOrdered By: Senia Goodmanlyssabeatriz on 06-16-2024 Lymphocytes/100 WBC Auto (Unsp spec) 28.5 % 19-41 [facility] BUN/creatinine ratioOrdered By: Senia Goodmanlyssabeatriz on 06-16-2024 Urea nitrogen/Creatinine [Mass ratio] 16.2 mg/mg 10-20 [facility] Basophil percentageOrdered B y: Constancemimawilson Goodmanlyssabeatriz on 06-16-2024 Basophils/100 WBC (Bld) 0.4 % 0-1 [facility] Carbon dioxide, total [Moles /volume] in Central venous bloodOrdered By: Senia Billy on 06-16-2024 CO2 [Moles/Vol] 25.6 mmol/L 21.0-32.0 [facility] Chloride assayOrdered By: Constance sunilmikki Billy on 06-16-2024 Chloride [Moles/Vol] 99 mmol/L 98-108 [facility] Eosinophil percentageOrdered By: emma Goodmanlyssabeatriz on 06-16-2024 Eosinophils/100 WBC (Bld) 3.0 % 0-5 [facility] Erythrocyte distribution wid th ratioOrdered By: Senia Goodmanlyssabeatriz on 06-16-2024 Erythrocyte distribution width (RBC) [Ratio] 15.9 % High 11.6-14.6 [facility] Erythrocyte distribution wid th standard deviationOrdered By: Senia Billy on 06-16-2024 Erythrocyte distribution width (RBC) [Ratio] 54.2 fl High 35.1-43.9 [facility] Glomerular filtration rate ( GFR) estimation/1.73 sq m using serum, plasma, or whole bOrdered By: Senia Billy on 06-16-2024 GFR/1.73 sq M.predicted among non-blacks MDRD (S/P/Bld) [Vol rate/Area] 60 mL/min/{1.73_m2} >60 [facility] Comment on above: mL/min/1.73m2 CKD-EP I Creatinine Equation (2020) Hematocrit Auto (Bld) [Volum e fraction]Ordered By: Senia Billy on 06-16-2024 Hematocrit (Bld) [Volume fraction] 31.0 % Low 37-47 [facility] Hemoglobin measurementOrdere d By: Constanceemma Billy on 06-16-2024 Hemoglobin (Bld) [Mass/Vol] 10.1 g/dL Low 12.0-15.0 [facility] Immature granulocytes/100 WB C Auto (Bld)Ordered By: Senia Billy on 06-16-2024 Immature granulocytes/100 WBC (Bld) 0.600 % 0.0-0.9 [facility] Comment on above: IG% - Immature Granu locytes (promyelocytes, myelocytes and metamyelocytes) > 1% indicates that a LEFT SHIFT is Present. MCV (mean corpuscular volume ) determinationOrdered By: Senia Blily on 06-16-2024 MCV (RBC) [Entitic vol] 93.4 fL 81-99 [facility] Mean corpuscular hemoglobin (MCH) determinationOrdered By: sunilsouth roxanawilson Billy on 06-16-2024 MCH (RBC) [Entitic mass] 30.4 pg 27.0-32.0 [facility] Mean corpuscular hemoglobin concentration (MCHC) determinationOrdered By: sunilsouth roxanawilson Billy on 06-16-2024 MCHC (RBC) [Mass/Vol] 32.6 g/dL 32-36 [facility] Mean platelet volume determi nationOrdered By: sunilsouth roxanawilson Billy on 06-16-2024 Platelet mean volume (Bld) [Entitic vol] 9.4 fL 6.2-12.0 [facility] Monocyte percentageOrdered B y: Senia Billy on 06-16-2024 Monocytes/100 WBC (Bld) 9.3 % 0-10 [facility] Neutrophil percentageOrdered By: sunilsouth roxanawilson Billy on 06-16-2024 Neutrophils/100 WBC (Bld) 58.2 % 47-70 [facility] Nucleated red blood cell per centageOrdered By: emma Billy on 06-16-2024 Nucleated RBC/100 WBC (Bld) [Ratio] 0 % 0-5 [facility] Platelet countOrdered By: Constance Billy on 06-16-2024 Platelets (Bld) [#/Vol] 231 10*3/uL 150-450 [facility] Potassium measurement (mass/ volume)Ordered By: Senia Billy on 06-16-2024 Potassium (Unsp spec) [Mass/Vol] 4.2 mmol/L 3.3-5.1 [facility] RBC Auto (Bld) [#/Vol]Ordere d By: Senia Billy on 06-16-2024 RBC (Bld) [#/Vol] 3.32 10*6/uL Low 4.2-5.4 [facility] Serum creatinine measurement (mass/volume)Ordered By: Senia Billy on 06-16-2024 Creatinine [Mass/Vol] 0.91 mg/dL 0.70-1.20 [facility] Serum glucose measurement (m ass/volume)Ordered By: Senia Rexdixie on 06-16-2024 Glucose [Mass/Vol] 78 mg/dL 70-99 [facility] Serum or plasma calcium soni urement (mass/volume)Ordered By: Senia Billy on 06-16-2024 Calcium [Mass/Vol] 8.7 mg/dL 7.6-11.0 [facility] Serum or plasma urea nitroge n measurement (mass/volume)Ordered By: Senia Billy on 06-16-2024 Urea nitrogen [Mass/Vol] 15 mg/dL 4-19 [facility] Sodium levelOrdered By: Beckie Billy on 06-16-2024 Sodium [Moles/Vol] 133 mmol/L 133-145 [facility] White blood cell (WBC) count Ordered By: Senia Billy on 06-16-2024 WBC (Bld) [#/Vol] 5.4 10*3/uL 4.4-11.0 [facility] Absolute lymphocyte countOrd ered By: Senia Billy on 06-10-2024 Lymphocytes Auto (Unsp spec) [#/Vol] 1.61 10*3/uL 0.83-4.51 [facility] Absolute neutrophil countOrd ered By: Senia Billy on 06-10-2024 Neutrophils (Bld) [#/Vol] 3.3 10*3/uL 2.0-7.7 [facility] Anion gap in Serum or Plasma Ordered By: Senia Billy on 06-10-2024 Anion gap [Moles/Vol] 8 mmol/L 5-15 [facility] Automated lymphocyte count a s percentage of total leukocytesOrdered By: Senia Billy on 06-10-2024 Lymphocytes/100 WBC Auto (Unsp spec) 28.6 % 19-41 [facility] BUN/creatinine ratioOrdered By: Senia Billy on 06-10-2024 Urea nitrogen/Creatinine [Mass ratio] 20.9 mg/mg High 10-20 [facility] Basophil percentageOrdered B y: Senia Billy on 06-10-2024 Basophils/100 WBC (Bld) 0.4 % 0-1 [facility] Carbon dioxide, total [Moles /volume] in Central venous bloodOrdered By: Senia Billy on 06-10-2024 CO2 [Moles/Vol] 27.2 mmol/L 21.0-32.0 [facility] Chloride assayOrdered By: Constance Billy on 06-10-2024 Chloride [Moles/Vol] 98 mmol/L 98-108 [facility] Eosinophil percentageOrdered By: Senia Billy on 06-10-2024 Eosinophils/100 WBC (Bld) 3.7 % 0-5 [facility] Erythrocyte distribution wid th ratioOrdered By: Senia Billy on 06-10-2024 Erythrocyte distribution width (RBC) [Ratio] 16.0 % High 11.6-14.6 [facility] Erythrocyte distribution wid th standard deviationOrdered By: Senia Billy on 06-10-2024 Erythrocyte distribution width (RBC) [Ratio] 55.4 fl High 35.1-43.9 [facility] Glomerular filtration rate ( GFR) estimation/1.73 sq m using serum, plasma, or whole bOrdered By: Senia Billy on 06-10-2024 GFR/1.73 sq M.predicted among non-blacks MDRD (S/P/Bld) [Vol rate/Area] 64 mL/min/{1.73_m2} >60 [facility] Comment on above: mL/min/1.73m2 CKD-EP I Creatinine Equation (2020) Hematocrit Auto (Bld) [Volum e fraction]Ordered By: Senia Billy on 06-10-2024 Hematocrit (Bld) [Volume fraction] 32.1 % Low 37-47 [facility] Hemoglobin measurementOrdere d By: emma Goodmanlyssabeatriz on 06-10-2024 Hemoglobin (Bld) [Mass/Vol] 10.3 g/dL Low 12.0-15.0 [facility] Immature granulocytes/100 WB C Auto (Bld)Ordered By: sunilsouth roxanawilson Billy on 06-10-2024 Immature granulocytes/100 WBC (Bld) 0.700 % 0.0-0.9 [facility] Comment on above: IG% - Immature Granu locytes (promyelocytes, myelocytes and metamyelocytes) > 1% indicates that a LEFT SHIFT is Present. MCV (mean corpuscular volume ) determinationOrdered By: Senia Billy on 06-10-2024 MCV (RBC) [Entitic vol] 94.4 fL 81-99 [facility] Mean corpuscular hemoglobin (MCH) determinationOrdered By: sunilsouth roxanawilson Billy on 06-10-2024 MCH (RBC) [Entitic mass] 30.3 pg 27.0-32.0 [facility] Mean corpuscular hemoglobin concentration (MCHC) determinationOrdered By: emma Billy on 06-10-2024 MCHC (RBC) [Mass/Vol] 32.1 g/dL 32-36 [facility] Mean platelet volume determi nationOrdered By: sunilsouth roxanawilson Billy on 06-10-2024 Platelet mean volume (Bld) [Entitic vol] 9.1 fL 6.2-12.0 [facility] Monocyte percentageOrdered B y: Senia Billy on 06-10-2024 Monocytes/100 WBC (Bld) 8.0 % 0-10 [facility] Neutrophil percentageOrdered By: Senia Billy on 06-10-2024 Neutrophils/100 WBC (Bld) 58.6 % 47-70 [facility] Nucleated red blood cell per centageOrdered By: Senia Billy on 06-10-2024 Nucleated RBC/100 WBC (Bld) [Ratio] 0 % 0-5 [facility] Platelet countOrdered By: Constance Billy on 06-10-2024 Platelets (Bld) [#/Vol] 235 10*3/uL 150-450 [facility] Potassium measurement (mass/ volume)Ordered By: Senia Billy on 06-10-2024 Potassium (Unsp spec) [Mass/Vol] 4.2 mmol/L 3.3-5.1 [facility] RBC Auto (Bld) [#/Vol]Ordere d By: Senia Billy on 06-10-2024 RBC (Bld) [#/Vol] 3.40 10*6/uL Low 4.2-5.4 [facility] Serum creatinine measurement (mass/volume)Ordered By: Senia Billy on 06-10-2024 Creatinine [Mass/Vol] 0.86 mg/dL 0.70-1.20 [facility] Serum glucose measurement (m ass/volume)Ordered By: Senia Billy on 06-10-2024 Glucose [Mass/Vol] 86 mg/dL 70-99 [facility] Serum or plasma calcium soni urement (mass/volume)Ordered By: Senia Billy 06-10-2024 Calcium [Mass/Vol] 8.9 mg/dL 7.6-11.0 [facility] Serum or plasma urea nitroge n measurement (mass/volume)Ordered By: Senia Billy on 06-10-2024 Urea nitrogen [Mass/Vol] 18 mg/dL 4-19 [facility] Sodium levelOrdered By: Beckie Billy on 06-10-2024 Sodium [Moles/Vol] 133 mmol/L 133-145 [facility] White blood cell (WBC) count Ordered By: Senia Billy 06-10-2024 WBC (Bld) [#/Vol] 5.6 10*3/uL 4.4-11.0 [facility] Absolute lymphocyte countOrd ered By: Senia Billy on 06-02-2024 Lymphocytes Auto (Unsp spec) [#/Vol] 1.48 10*3/uL 0.83-4.51 [facility] Absolute neutrophil countOrd ered By: Senia Billy on 06-02-2024 Neutrophils (Bld) [#/Vol] 3.4 10*3/uL 2.0-7.7 [facility] Anion gap in Serum or Plasma Ordered By: Constancesunilcariwilson Mariajose on 06-02-2024 Anion gap [Moles/Vol] 11 mmol/L 5-15 [facility] Automated lymphocyte count a s percentage of total leukocytesOrdered By: Constancesunilcariwilson Goodmanlyssabeatriz on 06-02-2024 Lymphocytes/100 WBC Auto (Unsp spec) 27.2 % 19-41 [facility] BUN/creatinine ratioOrdered By: Senia Friedmanbeatriz on 06-02-2024 Urea nitrogen/Creatinine [Mass ratio] 22.2 mg/mg High 10-20 [facility] Basophil percentageOrdered B y: Senia Billy on 06-02-2024 Basophils/100 WBC (Bld) 0.4 % 0-1 [facility] Carbon dioxide, total [Moles /volume] in Central venous bloodOrdered By: Constancesunilmikki Rexlyssabeatriz on 06-02-2024 CO2 [Moles/Vol] 24.4 mmol/L 21.0-32.0 [facility] Chloride assayOrdered By: Constance emma Rexlyssabeatriz on 06-02-2024 Chloride [Moles/Vol] 97 mmol/L Low 98-108 [facility] Eosinophil percentageOrdered By: Senia Friedmanebatriz on 06-02-2024 Eosinophils/100 WBC (Bld) 2.0 % 0-5 [facility] Erythrocyte distribution wid th ratioOrdered By: Constancesunilmikki Rxelyssabeatriz on 06-02-2024 Erythrocyte distribution width (RBC) [Ratio] 16.3 % High 11.6-14.6 [facility] Erythrocyte distribution wid th standard deviationOrdered By: Senia Billy on 06-02-2024 Erythrocyte distribution width (RBC) [Ratio] 58.1 fl High 35.1-43.9 [facility] Glomerular filtration rate ( GFR) estimation/1.73 sq m using serum, plasma, or whole bOrdered By: Senia Billy on 06-02-2024 GFR/1.73 sq M.predicted among non-blacks MDRD (S/P/Bld) [Vol rate/Area] 74 mL/min/{1.73_m2} >60 [facility] Comment on above: mL/min/1.73m2 CKD-EP I Creatinine Equation (2020) Hematocrit Auto (Bld) [Volum e fraction]Ordered By: Senia Billy on 06-02-2024 Hematocrit (Bld) [Volume fraction] 34.7 % Low 37-47 [facility] Hemoglobin measurementOrdere d By: Senia Billy on 06-02-2024 Hemoglobin (Bld) [Mass/Vol] 10.9 g/dL Low 12.0-15.0 [facility] Immature granulocytes/100 WB C Auto (Bld)Ordered By: Senia Billy 06-02-2024 Immature granulocytes/100 WBC (Bld) 0.400 % 0.0-0.9 [facility] Comment on above: IG% - Immature Granu locytes (promyelocytes, myelocytes and metamyelocytes) > 1% indicates that a LEFT SHIFT is Present. MCV (mean corpuscular volume ) determinationOrdered By: Senia Billy on 06-02-2024 MCV (RBC) [Entitic vol] 96.1 fL 81-99 [facility] Magnesium measurement (mass/ volume)Ordered By: Senia Billy 06-02-2024 Magnesium (Unsp spec) [Mass/Vol] 1.5 mg/dL 1.5-2.2 [facility] Mean corpuscular hemoglobin (MCH) determinationOrdered By: Senia Billy on 06-02-2024 MCH (RBC) [Entitic mass] 30.2 pg 27.0-32.0 [facility] Mean corpuscular hemoglobin concentration (MCHC) determinationOrdered By: Senia Billy on 06-02-2024 MCHC (RBC) [Mass/Vol] 31.4 g/dL Low 32-36 [facility] Mean platelet volume determi nationOrdered By: Senia Billy on 06-02-2024 Platelet mean volume (Bld) [Entitic vol] 9.2 fL 6.2-12.0 [facility] Monocyte percentageOrdered B y: Senia Billy on 06-02-2024 Monocytes/100 WBC (Bld) 7.3 % 0-10 [facility] Neutrophil percentageOrdered By: Senia Billy on 06-02-2024 Neutrophils/100 WBC (Bld) 62.7 % 47-70 [facility] Nucleated red blood cell per centageOrdered By: Senia Billy on 06-02-2024 Nucleated RBC/100 WBC (Bld) [Ratio] 0 % 0-5 [facility] Platelet countOrdered By: Constance Billy on 06-02-2024 Platelets (Bld) [#/Vol] 209 10*3/uL 150-450 [facility] Potassium measurement (mass/ volume)Ordered By: Senia Billy on 06-02-2024 Potassium (Unsp spec) [Mass/Vol] 4.2 mmol/L 3.3-5.1 [facility] RBC Auto (Bld) [#/Vol]Ordere d By: Senia Billy on 06-02-2024 RBC (Bld) [#/Vol] 3.61 10*6/uL Low 4.2-5.4 [facility] Serum creatinine measurement (mass/volume)Ordered By: Senia Billy on 06-02-2024 Creatinine [Mass/Vol] 0.77 mg/dL 0.70-1.20 [facility] Serum glucose measurement (m ass/volume)Ordered By: Senia Billy on 06-02-2024 Glucose [Mass/Vol] 84 mg/dL 70-99 [facility] Serum or plasma calcium soni urement (mass/volume)Ordered By: Senia Billy on 06-02-2024 Calcium [Mass/Vol] 8.8 mg/dL 7.6-11.0 [facility] Serum or plasma urea nitroge n measurement (mass/volume)Ordered By: Senia Billy on 06-02-2024 Urea nitrogen [Mass/Vol] 17 mg/dL 4-19 [facility] Sodium levelOrdered By: Beckie kaye Mariajose on 06-02-2024 Sodium [Moles/Vol] 132 mmol/L Low 133-145 [facility] White blood cell (WBC) count Ordered By: Senia Billy on 06-02-2024 WBC (Bld) [#/Vol] 5.5 10*3/uL 4.4-11.0 [facility] Absolute lymphocyte countOrd ered By: Senia Billy on 05-27-2024 Lymphocytes Auto (Unsp spec) [#/Vol] 1.05 10*3/uL 0.83-4.51 [facility] Absolute neutrophil countOrd ered By: Senia Billy on 05-27-2024 Neutrophils (Bld) [#/Vol] 3.1 10*3/uL 2.0-7.7 [facility] Anion gap in Serum or Plasma Ordered By: Senia Billy on 05-27-2024 Anion gap [Moles/Vol] 9 mmol/L 5-15 [facility] Automated lymphocyte count a s percentage of total leukocytesOrdered By: Senia Billy on 05-27-2024 Lymphocytes/100 WBC Auto (Unsp spec) 21.4 % 19-41 [facility] BUN/creatinine ratioOrdered By: Senia Billy on 05-27-2024 Urea nitrogen/Creatinine [Mass ratio] 16.3 mg/mg 10-20 [facility] Basophil percentageOrdered B y: Beckiecariwilson Billy on 05-27-2024 Basophils/100 WBC (Bld) 0.6 % 0-1 [facility] Carbon dioxide, total [Moles /volume] in Central venous bloodOrdered By: Senia Billy on 05-27-2024 CO2 [Moles/Vol] 25.8 mmol/L 21.0-32.0 [facility] Chloride assayOrdered By: Constance Billy on 05-27-2024 Chloride [Moles/Vol] 99 mmol/L 98-108 [facility] Eosinophil percentageOrdered By: Senia Billy on 05-27-2024 Eosinophils/100 WBC (Bld) 3.5 % 0-5 [facility] Erythrocyte distribution wid th ratioOrdered By: Senia Billy on 05-27-2024 Erythrocyte distribution width (RBC) [Ratio] 16.9 % High 11.6-14.6 [facility] Erythrocyte distribution wid th standard deviationOrdered By: sunilsouth roxanawilson Billy on 05-27-2024 Erythrocyte distribution width (RBC) [Ratio] 59.1 fl High 35.1-43.9 [facility] Glomerular filtration rate ( GFR) estimation/1.73 sq m using serum, plasma, or whole bOrdered By: emma Billy on 05-27-2024 GFR/1.73 sq M.predicted among non-blacks MDRD (S/P/Bld) [Vol rate/Area] 73 mL/min/{1.73_m2} >60 [facility] Comment on above: mL/min/1.73m2 CKD-EP I Creatinine Equation (2020) Hematocrit Auto (Bld) [Volum e fraction]Ordered By: Senia Billy on 05-27-2024 Hematocrit (Bld) [Volume fraction] 30.4 % Low 37-47 [facility] Hemoglobin measurementOrdere d By: Senia Billy on 05-27-2024 Hemoglobin (Bld) [Mass/Vol] 9.6 g/dL Low 12.0-15.0 [facility] Immature granulocytes/100 WB C Auto (Bld)Ordered By: Senia Billy on 05-27-2024 Immature granulocytes/100 WBC (Bld) 0.600 % 0.0-0.9 [facility] Comment on above: IG% - Immature Granu locytes (promyelocytes, myelocytes and metamyelocytes) > 1% indicates that a LEFT SHIFT is Present. MCV (mean corpuscular volume ) determinationOrdered By: Senia Billy on 05-27-2024 MCV (RBC) [Entitic vol] 95.0 fL 81-99 [facility] Mean corpuscular hemoglobin (MCH) determinationOrdered By: Senia Billy on 05-27-2024 MCH (RBC) [Entitic mass] 30.0 pg 27.0-32.0 [facility] Mean corpuscular hemoglobin concentration (MCHC) determinationOrdered By: Senia Billy on 05-27-2024 MCHC (RBC) [Mass/Vol] 31.6 g/dL Low 32-36 [facility] Mean platelet volume determi nationOrdered By: Senia Billy on 05-27-2024 Platelet mean volume (Bld) [Entitic vol] 9.4 fL 6.2-12.0 [facility] Monocyte percentageOrdered B y: Senia Billy on 05-27-2024 Monocytes/100 WBC (Bld) 10.0 % 0-10 [facility] Neutrophil percentageOrdered By: Senia Billy on 05-27-2024 Neutrophils/100 WBC (Bld) 63.9 % 47-70 [facility] Nucleated red blood cell per centageOrdered By: Senia Billy on 05-27-2024 Nucleated RBC/100 WBC (Bld) [Ratio] 0 % 0-5 [facility] Platelet countOrdered By: Constance Billy on 05-27-2024 Platelets (Bld) [#/Vol] 215 10*3/uL 150-450 [facility] Potassium measurement (mass/ volume)Ordered By: Senia Billy on 05-27-2024 Potassium (Unsp spec) [Mass/Vol] 4.0 mmol/L 3.3-5.1 [facility] RBC Auto (Bld) [#/Vol]Ordere d By: Senia Billy on 05-27-2024 RBC (Bld) [#/Vol] 3.20 10*6/uL Low 4.2-5.4 [facility] Serum creatinine measurement (mass/volume)Ordered By: Senia Billy on 05-27-2024 Creatinine [Mass/Vol] 0.77 mg/dL 0.70-1.20 [facility] Serum glucose measurement (m ass/volume)Ordered By: Senia Billy on 05-27-2024 Glucose [Mass/Vol] 72 mg/dL 70-99 [facility] Serum or plasma calcium soni urement (mass/volume)Ordered By: Senia Billy on 05-27-2024 Calcium [Mass/Vol] 8.3 mg/dL 7.6-11.0 [facility] Serum or plasma urea nitroge n measurement (mass/volume)Ordered By: Senia Billy on 05-27-2024 Urea nitrogen [Mass/Vol] 13 mg/dL 4-19 [facility] Sodium levelOrdered By: Beckie leighdarrellbeatriz Billy on 05-27-2024 Sodium [Moles/Vol] 134 mmol/L 133-145 [facility] White blood cell (WBC) count Ordered By: Senia Billy on 05-27-2024 WBC (Bld) [#/Vol] 4.9 10*3/uL 4.4-11.0 [facility] Absolute lymphocyte countOrd ered By: Senia Billy on 05-20-2024 Lymphocytes Auto (Unsp spec) [#/Vol] 1.62 10*3/uL 0.83-4.51 [facility] Absolute neutrophil countOrd ered By: Senia Billy on 05-20-2024 Neutrophils (Bld) [#/Vol] 3.2 10*3/uL 2.0-7.7 [facility] Anion gap in Serum or Plasma Ordered By: Senia Billy on 05-20-2024 Anion gap [Moles/Vol] 9 mmol/L 5-15 [facility] Automated lymphocyte count a s percentage of total leukocytesOrdered By: Senia Billy on 05-20-2024 Lymphocytes/100 WBC Auto (Unsp spec) 28.6 % 19-41 [facility] BUN/creatinine ratioOrdered By: Senia Billy on 05-20-2024 Urea nitrogen/Creatinine [Mass ratio] 18.6 mg/mg 10-20 [facility] Basophil percentageOrdered B y: Senia Billy on 05-20-2024 Basophils/100 WBC (Bld) 0.7 % 0-1 [facility] Carbon dioxide, total [Moles /volume] in Central venous bloodOrdered By: Senia Billy on 05-20-2024 CO2 [Moles/Vol] 25.2 mmol/L 21.0-32.0 [facility] Chloride assayOrdered By: Constance Billy on 05-20-2024 Chloride [Moles/Vol] 98 mmol/L 98-108 [facility] Eosinophil percentageOrdered By: Senia Billy on 05-20-2024 Eosinophils/100 WBC (Bld) 3.5 % 0-5 [facility] Erythrocyte distribution wid th ratioOrdered By: Senia Billy on 05-20-2024 Erythrocyte distribution width (RBC) [Ratio] 16.7 % High 11.6-14.6 [facility] Erythrocyte distribution wid th standard deviationOrdered By: Senia Billy on 05-20-2024 Erythrocyte distribution width (RBC) [Ratio] 59.4 fl High 35.1-43.9 [facility] Glomerular filtration rate ( GFR) estimation/1.73 sq m using serum, plasma, or whole bOrdered By: Senia Billy on 05-20-2024 GFR/1.73 sq M.predicted among non-blacks MDRD (S/P/Bld) [Vol rate/Area] 62 mL/min/{1.73_m2} >60 [facility] Comment on above: mL/min/1.73m2 CKD-EP I Creatinine Equation (2020) Hematocrit Auto (Bld) [Volum e fraction]Ordered By: Senia Billy on 05-20-2024 Hematocrit (Bld) [Volume fraction] 31.6 % Low 37-47 [facility] Hemoglobin measurementOrdere d By: Senia Billy on 05-20-2024 Hemoglobin (Bld) [Mass/Vol] 9.9 g/dL Low 12.0-15.0 [facility] Immature granulocytes/100 WB C Auto (Bld)Ordered By: Senia Billy on 05-20-2024 Immature granulocytes/100 WBC (Bld) 0.500 % 0.0-0.9 [facility] Comment on above: IG% - Immature Granu locytes (promyelocytes, myelocytes and metamyelocytes) > 1% indicates that a LEFT SHIFT is Present. MCV (mean corpuscular volume ) determinationOrdered By: Senia Billy on 05-20-2024 MCV (RBC) [Entitic vol] 96.3 fL 81-99 [facility] Mean corpuscular hemoglobin (MCH) determinationOrdered By: Senia Billy on 05-20-2024 MCH (RBC) [Entitic mass] 30.2 pg 27.0-32.0 [facility] Mean corpuscular hemoglobin concentration (MCHC) determinationOrdered By: Senia Billy on 05-20-2024 MCHC (RBC) [Mass/Vol] 31.3 g/dL Low 32-36 [facility] Mean platelet volume determi nationOrdered By: Senia Billy on 05-20-2024 Platelet mean volume (Bld) [Entitic vol] 9.0 fL 6.2-12.0 [facility] Monocyte percentageOrdered B y: Senia Billy on 05-20-2024 Monocytes/100 WBC (Bld) 10.2 % High 0-10 [facility] Neutrophil percentageOrdered By: Senia Billy on 05-20-2024 Neutrophils/100 WBC (Bld) 56.5 % 47-70 [facility] Nucleated red blood cell per centageOrdered By: Senia Billy on 05-20-2024 Nucleated RBC/100 WBC (Bld) [Ratio] 0 % 0-5 [facility] Platelet countOrdered By: Constance Billy on 05-20-2024 Platelets (Bld) [#/Vol] 225 10*3/uL 150-450 [facility] Potassium measurement (mass/ volume)Ordered By: Senia Billy on 05-20-2024 Potassium (Unsp spec) [Mass/Vol] 4.3 mmol/L 3.3-5.1 [facility] RBC Auto (Bld) [#/Vol]Ordere d By: Senia Billy on 05-20-2024 RBC (Bld) [#/Vol] 3.28 10*6/uL Low 4.2-5.4 [facility] Serum creatinine measurement (mass/volume)Ordered By: Senia Billy on 05-20-2024 Creatinine [Mass/Vol] 0.89 mg/dL 0.70-1.20 [facility] Serum glucose measurement (m ass/volume)Ordered By: Senia Rexdixie on 05-20-2024 Glucose [Mass/Vol] 89 mg/dL 70-99 [facility] Serum or plasma calcium soni urement (mass/volume)Ordered By: Senia Billy on 05-20-2024 Calcium [Mass/Vol] 8.7 mg/dL 7.6-11.0 [facility] Serum or plasma urea nitroge n measurement (mass/volume)Ordered By: Senia Rexdixie on 05-20-2024 Urea nitrogen [Mass/Vol] 17 mg/dL 4-19 [facility] Sodium levelOrdered By: Beckie Billy on 05-20-2024 Sodium [Moles/Vol] 133 mmol/L 133-145 [facility] White blood cell (WBC) count Ordered By: Senia Billy on 05-20-2024 WBC (Bld) [#/Vol] 5.7 10*3/uL 4.4-11.0 [facility] XR SHOULDER MINIMUM 2 VIEWS RIGHTon 04-28-2024 [...] 04/28/2024 2:27:51 PM Ordering Provider: GAVIN SHERWOOD [facility] .GFRon 04-20-2024 Estimated Glomerular Filtration Rate 61 ml/min/1.73sqm [facility] Comment on above: Result Comment: Stages of [...] By: #### G FR, MG, BMP #### [address] [address] [facility] BUN/Creatinine Ratio 20 ratio Normal 7-27 [facility] Comment on above: Performed By: #### G FR, MG, BMP #### [address] [address] Calcium [Mass/Vol] 8.9 mg/dL Normal 8.4-10.2 [facility] Comment on above: Performed By: #### G FR, MG, BMP #### [address] [address] Chloride [Moles/Vol] 93 mmol/L Low 98-107 [facility] Comment on above: Performed By: #### Hipolito COY MG, BMP #### [address] [address] CO2 [Moles/Vol] 30 mmol/L Normal 23-31 [facility] Comment on above: Performed By: #### Hipolito COY MG, BMP #### [address] [address] Creatinine [Mass/Vol] 0.90 mg/dL Normal 0.55-1.02 [facility] Comment on above: Result Comment: Test ing performed on Siemens Dimension EXL analyzer using a modified kinetic Nate technique. Performed By: #### MG LAUREN, BMP #### [address] [address] Electrolyte Balance 4.0 mEq/L Normal 4.0-15.0 [facility] Comment on above: Performed By: #### Hipolito COY MG, BMP #### [address] [address] Glucose [Mass/Vol] 99 mg/dL Normal 83-110 [facility] Comment on above: Performed By: #### Hipolito COY MG, BMP #### [address] [address] Potassium [Moles/Vol] 4.0 mmol/L Normal 3.5-5.1 [facility] Comment on above: Performed By: #### Hipolito COY MG, BMP #### [address] [address] Sodium [Moles/Vol] 127 mmol/L Low 136-145 [facility] Comment on above: Performed By: #### Hipolito COY MG, BMP #### [address] [address] Urea nitrogen [Mass/Vol] 18 mg/dL Normal 7-18 [facility] Comment on above: Performed By: #### Hipolito COY MG, BMP #### [address] [address] Basic Metabolic Profile (BMP )on 04-20-2024 BUN Normal 7-18 [facility] Comment on above: Result Comment: Canc elled via OM: Order cancelled - Patient discharged Performed By: #### L 500.2500 #### [facility] [address] [place], [address] BUN/CRE Normal 10-20 [facility] Comment on above: Result Comment: Canc elled via OM: Order cancelled - Patient discharged Performed By: #### L 500.2500 #### [facility] [address] [place], [address] CA,Total Normal 8.5-10.1 [facility] Comment on above: Result Comment: Canc elled via OM: Order cancelled - Patient discharged Performed By: #### L 500.2500 #### [facility] [address] [place], [address] CL Normal 98-107 [facility] Comment on above: Result Comment: Canc elled via OM: Order cancelled - Patient discharged Performed By: #### L 500.2500 #### [facility] [address] [place], [address] CO2 Normal 21.0-32.0 [facility] Comment on above: Result Comment: Canc elled via OM: Order cancelled - Patient discharged Performed By: #### L 500.2500 #### [facility] [address] [place], [address] CREAT,SERUM Normal 0.55-1.02 [facility] Comment on above: Result Comment: Canc elled via OM: Order cancelled - Patient discharged Performed By: #### L 500.2500 #### [facility] [address] [place], [address] EST GFR Normal >60 [facility] Comment on above: Result Comment: Canc elled via OM: Order cancelled - Patient discharged Performed By: #### L 500.2500 #### [facility] [address] [place], [address] EST GFR - AA Normal >60 [facility] Comment on above: Result Comment: Canc elled via OM: Order cancelled - Patient discharged Performed By: #### L 500.2500 #### [facility] [address] [place], [address] GAP Normal 5-15 [facility] Comment on above: Result Comment: Canc elled via OM: Order cancelled - Patient discharged Performed By: #### L 500.2500 #### [facility] [address] [place], [address] GLU Normal 74-106 [facility] Comment on above: Result Comment: Canc elled via OM: Order cancelled - Patient discharged Performed By: #### L 500.2500 #### [facility] [address] [place], [address] Potassium Normal 3.5-5.1 [facility] Comment on above: Result Comment: Canc elled via OM: Order cancelled - Patient discharged Performed By: #### L 500.2500 #### [facility] [address] [place], [address] Basic Metabolic Profile (BMP) Normal 136-145 [facility] Comment on above: Result Comment: Canc elled via OM: Order cancelled - Patient discharged Performed By: #### L 500.2500 #### [facility] [address] [place], [address] MGon 04-20-2024 Magnesium [Mass/Vol] 1.5 mg/dL Low 1.8-2.4 [facility] Comment on above: Performed By: #### G FR, MG, BMP #### [facility] [address] [place] [id number] Basic Metabolic Profile (BMP )on 04-19-2024 BUN/CRE 21.3 RATIO High 10-20 [facility] Comment on above: Performed By: #### L 500.2500 #### [facility] [address] [place], [address] CA,Total 8.8 mg/dL Normal 8.5-10.1 [facility] Comment on above: Performed By: #### L 500.2500 #### [facility] [address] [place], [address] Chloride [Moles/Vol] 96 mmol/L Low 98-107 [facility] Comment on above: Performed By: #### L [id number] #### [facility] [address] [place], [address] CO2 [Moles/Vol] 25.0 mmol/L Normal 21.0-32.0 [facility] Comment on above: Performed By: #### L 500.2500 #### [facility] [address] [place], [address] Creatinine [Mass/Vol] 0.80 mg/dL Normal 0.55-1.02 [facility] Comment on above: Result Comment: The validity of the calculated GFR GFRAA in patients over 70 years has not been determined. Clinical correlation is essential. Performed By: #### L 500.2500 #### [facility] [address] [place], [address] ECRCL 48.42 ml/min Normal [facility] Comment on above: Performed By: #### L 500.2500 #### [facility] [address] [place], [address] EST GFR - AA 87 mL/min Normal >60 [facility] Comment on above: Result Comment: Afri can [place] GFR Calc Performed By: #### L 500.2500 #### [facility] [address] [place], [address] GAP 7 Normal 5-15 [facility] Comment on above: Performed By: #### L 500.2500 #### [facility] [address] [place], [address] GFR/1.73 sq M.predicted among non-blacks MDRD (S/P/Bld) [Vol rate/Area] 72 mL/min/{1.73_m2} Normal >60 [facility] Comment on above: Result Comment: Non- GFR Calc Performed By: #### L 500.2500 #### [facility] [address] [place], [address] Glucose [Mass/Vol] 129 mg/dL High 74-106 [facility] Comment on above: Result Comment: Fast ing Glucose result greater than or equal to 126 mg/dL suggests DIABETES MELLITUS per A.D.A. criteria. Performed By: #### L 500.2500 #### [facility] [address] [place], [address] Potassium [Moles/Vol] 4.0 mmol/L Normal 3.5-5.1 [facility] Comment on above: Performed By: #### L 500.2500 #### [facility] [address] [place], [address] Sodium [Moles/Vol] 128 mmol/L Low 136-145 [facility] Comment on above: Performed By: #### L 500.2500 #### [facility] [address] [place], [address] Urea nitrogen [Mass/Vol] 17 mg/dL Normal 7-18 [facility] Comment on above: Performed By: #### L 500.2500 #### [facility] [address] [place], [address] Bedside Glucoseon 04-19-2024 FINGERSTICK GLU 144 mg/dL High 74-106 [facility] Comment on above: Result Comment: CANDY TYLERENT OF PATIENT CARE PER NURSING PROTOCOL Performed By: #### L 501.080 #### [facility] [address] [place], [address] FINGERSTICK GLU 118 mg/dL High 74-106 [facility] Comment on above: Result Comment: CANDY ZAMORA OF PATIENT CARE PER NURSING PROTOCOL Performed By: #### L 501.080 #### [facility] [address] [place], [address] CBC-Complete Blood Cnt No Di ffon 04-19-2024 Erythrocyte distribution width (RBC) [Ratio] 15.6 % High 11.6-14.6 [facility] Comment on above: Performed By: #### L 500.2500 #### [facility] [address] [place], [address] Hematocrit (Bld) [Volume fraction] 27.6 % Low 37-47 [facility] Comment on above: Performed By: #### L 500.2500 #### [facility] [address] [place], [address] Hemoglobin (Bld) [Mass/Vol] 8.8 g/dL Low 12.0-15.0 [facility] Comment on above: Performed By: #### L 500.2500 #### [facility] [address] [place], [address] MCH (RBC) [Entitic mass] 28.9 pg Normal 27.0-32.0 [facility] Comment on above: Performed By: #### L 500.2500 #### [facility] [address] [place], [address] MCHC (RBC) [Mass/Vol] 31.9 g/dL Low 32-36 [facility] Comment on above: Performed By: #### L 500.2500 #### [facility] [address] [place], [address] MCV (RBC) [Entitic vol] 90.8 fL Normal 81-99 [facility] Comment on above: Performed By: #### L 500.2500 #### [facility] [address] [place], [address] Platelet mean volume (Bld) [Entitic vol] 9.2 fL Normal 6.2-12.0 [facility] Comment on above: Performed By: #### L 500.2500 #### [facility] [address] [place], [address] Platelets (Bld) [#/Vol] 187 10*3/uL Normal 150-450 [facility] Comment on above: Performed By: #### L 500.2500 #### [facility] [address] [place], [address] RBC (Bld) [#/Vol] 3.04 10*6/uL Low 4.2-5.4 [facility] Comment on above: Performed By: #### L 500.2500 #### [facility] [address] [place], [address] RDW SD 51.6 fl High 35.1-43.9 [facility] Comment on above: Performed By: #### L 500.2500 #### [facility] [address] [place], [address] WBC (Bld) [#/Vol] 7.3 10*3/uL Normal 4.4-11.0 [facility] Comment on above: Performed By: #### L 500.2500 #### [facility] [address] [place], [address] Basic Metabolic Profile (BMP )on 04-18-2024 BUN/CRE 19.8 RATIO Normal 10-20 [facility] Comment on above: Performed By: #### L 500.2500 #### [facility] [address] [place], [address] CA,Total 8.4 mg/dL Low 8.5-10.1 [facility] Comment on above: Performed By: #### L 500.2500 #### [facility] [address] [place], [address] Chloride [Moles/Vol] 93 mmol/L Low 98-107 [facility] Comment on above: Performed By: #### L 500.2500 #### [facility] [address] [place], [address] CO2 [Moles/Vol] 24.0 mmol/L Normal 21.0-32.0 [facility] Comment on above: Performed By: #### L 500.2500 #### [facility] [address] [place], [address] Creatinine [Mass/Vol] 1.01 mg/dL Normal 0.55-1.02 [facility] Comment on above: Result Comment: The validity of the calculated GFR GFRAA in patients over 70 years has not been determined. Clinical correlation is essential. Performed By: #### L 500.2500 #### [facility] [address] [place], [address] ECRCL 35.35 ml/min Normal [facility] Comment on above: Performed By: #### L 500.2500 #### [facility] [address] [place], [address] EST GFR - AA 66 mL/min Normal >60 [facility] Comment on above: Result Comment: Afri can [place] GFR Calc Performed By: #### L 500.2500 #### [facility] [address] [place], [address] GAP 12 Normal 5-15 [facility] Comment on above: Performed By: #### L 500.2500 #### [facility] [address] [place], [address] GFR/1.73 sq M.predicted among non-blacks MDRD (S/P/Bld) [Vol rate/Area] 55 mL/min/{1.73_m2} Low >60 [facility] Comment on above: Result Comment: Non- GFR Calc Performed By: #### L 500.2500 #### [facility] [address] [place], [address] Glucose [Mass/Vol] 134 mg/dL High 74-106 [facility] Comment on above: Result Comment: Fast ing Glucose result greater than or equal to 126 mg/dL suggests DIABETES MELLITUS per A.D.A. criteria. Performed By: #### L 500.2500 #### [facility] [address] [place], [address] Potassium [Moles/Vol] 4.4 mmol/L Normal 3.5-5.1 [facility] Comment on above: Performed By: #### L 500.2500 #### [facility] [address] [place], [address] Sodium [Moles/Vol] 129 mmol/L Low 136-145 [facility] Comment on above: Performed By: #### L 500.2500 #### [facility] [address] [place], [address] Urea nitrogen [Mass/Vol] 20 mg/dL High 7-18 [facility] Comment on above: Performed By: #### L 500.2500 #### [facility] [address] [place], [address] Bedside Glucoseon 04-18-2024 FINGERSTICK GLU 128 mg/dL High 74-106 [facility] Comment on above: Result Comment: CANDY GEMENT OF PATIENT CARE PER NURSING PROTOCOL Performed By: #### L 501.080 #### [facility] [address] [place], [address] FINGERSTICK GLU 141 mg/dL High 74-106 [facility] Comment on above: Result Comment: CANDY GEMENT OF PATIENT CARE PER NURSING PROTOCOL Performed By: #### L 501.080 #### [facility] [address] [place], [address] FINGERSTICK GLU 133 mg/dL High 74-106 [facility] Comment on above: Result Comment: CANDY ZAMORA OF PATIENT CARE PER NURSING PROTOCOL Performed By: #### L 501.080 #### [facility] [address] [place], [address] Basic Metabolic Profile (BMP )on 04-17-2024 BUN/CRE 11.7 RATIO Normal 10-20 [facility] Comment on above: Performed By: #### L 500.2500 #### [facility] [address] [place], [address] CA,Total 8.7 mg/dL Normal 8.5-10.1 [facility] Comment on above: Performed By: #### L 500.2500 #### [facility] [address] [place], [address] Chloride [Moles/Vol] 92 mmol/L Low 98-107 [facility] Comment on above: Performed By: #### L 500.2500 #### [facility] [address] [place], [address] CO2 [Moles/Vol] 26.0 mmol/L Normal 21.0-32.0 [facility] Comment on above: Performed By: #### L 500.2500 #### [facility] [address] [place], [address] Creatinine [Mass/Vol] 0.94 mg/dL Normal 0.55-1.02 [facility] Comment on above: Result Comment: The validity of the calculated GFR GFRAA in patients over 70 years has not been determined. Clinical correlation is essential. Performed By: #### L 500.2500 #### [facility] [address] [place], [address] ECRCL 41.47 ml/min Normal [facility] Comment on above: Performed By: #### L 500.2500 #### [facility] [address] [place], [address] EST GFR - AA 72 mL/min Normal >60 [facility] Comment on above: Result Comment: Afri can [place] GFR Calc Performed By: #### L 500.2500 #### [facility] [address] [place], [address] GAP 10 Normal 5-15 [facility] Comment on above: Performed By: #### L 500.2500 #### [facility] [address] [place], [address] GFR/1.73 sq M.predicted among non-blacks MDRD (S/P/Bld) [Vol rate/Area] 59 mL/min/{1.73_m2} Low >60 [facility] Comment on above: Result Comment: Non- GFR Calc Performed By: #### L 500.2500 #### [facility] [address] [place], [address] Glucose [Mass/Vol] 140 mg/dL High 74-106 [facility] Comment on above: Result Comment: Fast ing Glucose result greater than or equal to 126 mg/dL suggests DIABETES MELLITUS per A.D.A. criteria. Performed By: #### L 500.2500 #### [facility] [address] [place], [address] Potassium [Moles/Vol] 4.0 mmol/L Normal 3.5-5.1 [facility] Comment on above: Performed By: #### L 500.2500 #### [facility] [address] [place], [address] Sodium [Moles/Vol] 128 mmol/L Low 136-145 [facility] Comment on above: Performed By: #### L 500.2500 #### [facility] [address] [place], [address] Urea nitrogen [Mass/Vol] 11 mg/dL Normal 7-18 [facility] Comment on above: Performed By: #### L 500.2500 #### [facility] [address] [place] [place], [address] Bedside Glucoseon - FINGERSTICK GLU 161 mg/dL High 74-106 [facility] Comment on above: Result Comment: CANYD GEMENT OF PATIENT CARE PER NURSING PROTOCOL Performed By: #### L 501.080 #### [facility] [address] [place], [address] FINGERSTICK GLU 194 mg/dL High 74-106 [facility] Comment on above: Result Comment: CANDY GEMENT OF PATIENT CARE PER NURSING PROTOCOL Performed By: #### L 501.080 #### [facility] [address] [place], [address] FINGERSTICK GLU 190 mg/dL High 74-106 [facility] Comment on above: Result Comment: CANDY GEMENT OF PATIENT CARE PER NURSING PROTOCOL Performed By: #### L 501.080 #### [facility] [address] [place], [address] FINGERSTICK GLU 188 mg/dL High 74-106 [facility] Comment on above: Result Comment: CANDY GEMENT OF PATIENT CARE PER NURSING PROTOCOL Performed By: #### L 501.080 #### [facility] [address] [place], [address] CBC W/Diff, Automatedon - Absolute Lymph 0.64 X10 3/uL Low 0.83-4.51 [facility] Comment on above: Performed By: #### L 500.4050, L100.0100 #### [facility] [address] [place], [address] Absolute Neut 8.3 X10 3/uL High 2.0-7.7 [facility] Comment on above: Performed By: #### L 500.4050, L100.0100 #### [facility] [address] [place], [address] Basophils/100 WBC (Bld) 0.3 % Normal 0-1 [facility] Comment on above: Performed By: #### L 500.4050, L100.0100 #### [facility] [address] [place], [address] Eosinophils/100 WBC (Bld) 0.0 % Normal 0-5 [facility] Comment on above: Performed By: #### L 500.4050, L100.0100 #### [facility] [address] [place], [address] Erythrocyte distribution width (RBC) [Ratio] 15.4 % High 11.6-14.6 [facility] Comment on above: Performed By: #### L 500.4050, L100.0100 #### [facility] [address] [place], [address] Hematocrit (Bld) [Volume fraction] 32.3 % Low 37-47 [facility] Comment on above: Performed By: #### L 500.4050, L100.0100 #### [facility] [address] [place], [address] Hemoglobin (Bld) [Mass/Vol] 10.3 g/dL Low 12.0-15.0 [facility] Comment on above: Performed By: #### L 500.4050, L100.0100 #### [facility] [address] [place], [address] IG% 0.700 Normal 0.0-0.9 [facility] Comment on above: Result Comment: IG% - Immature Granulocytes (promyelocytes, myelocytes and metamyelocytes) > 1% indicates that a LEFT SHIFT is Present. Performed By: #### L 500.4050, L100.0100 #### [facility] [address] [place], [address] Lymphocytes/100 WBC (Bld) 6.6 % Low 19-41 [facility] Comment on above: Performed By: #### L 500.4050, L100.0100 #### [facility] [address] [place], [address] MCH (RBC) [Entitic mass] 28.5 pg Normal 27.0-32.0 [facility] Comment on above: Performed By: #### L 500.4050, L100.0100 #### [facility] [address] [place], [address] MCHC (RBC) [Mass/Vol] 31.9 g/dL Low 32-36 [facility] Comment on above: Performed By: #### L 500.4050, L100.0100 #### [facility] [address] [place], [address] MCV (RBC) [Entitic vol] 89.2 fL Normal 81-99 [facility] Comment on above: Performed By: #### L 500.4050, L100.0100 #### [facility] [address] [place], [address] Monocytes/100 WBC (Bld) 6.3 % Normal 0-10 [facility] Comment on above: Performed By: #### L 500.4050, L100.0100 #### [facility] [address] [place], [address] Neutrophils/100 WBC (Bld) 86.1 % High 47-70 [facility] Comment on above: Performed By: #### L 500.4050, L100.0100 #### [facility] [address] [place], [address] Nucleated RBC (Bld) [#/Vol] 0 10*3/uL Normal 0-5 [facility] Comment on above: Performed By: #### L 500.4050, L100.0100 #### [facility] [address] [place], [address] Platelet mean volume (Bld) [Entitic vol] 9.2 fL Normal 6.2-12.0 [facility] Comment on above: Performed By: #### L 500.4050, L100.0100 #### [facility] [address] [place], [address] Platelets (Bld) [#/Vol] 248 10*3/uL Normal 150-450 [facility] Comment on above: Performed By: #### L 500.4050, L100.0100 #### [facility] [address] [place], [address] RBC (Bld) [#/Vol] 3.62 10*6/uL Low 4.2-5.4 [facility] Comment on above: Performed By: #### L 500.4050, L100.0100 #### [facility] [address] [place], [address] RDW SD 50.3 fl High 35.1-43.9 [facility] Comment on above: Performed By: #### L 500.4050, L100.0100 #### [facility] [address] [place], [address] WBC (Bld) [#/Vol] 9.7 10*3/uL Normal 4.4-11.0 [facility] Comment on above: Performed By: #### L 500.4050, L100.0100 #### [facility] [address] [place], [address] Absolute Lymph 1.09 X10 3/uL Normal 0.83-4.51 [facility] Comment on above: Performed By: #### L 500.2500 #### [facility] [address] [place], [address] Absolute Neut 10.7 X10 3/uL High 2.0-7.7 [facility] Comment on above: Performed By: #### L 500.2500 #### [facility] [address] [place], [address] Basophils/100 WBC (Bld) 0.3 % Normal 0-1 [facility] Comment on above: Performed By: #### L 500.2500 #### [facility] [address] [place], [address] Eosinophils/100 WBC (Bld) 0.2 % Normal 0-5 [facility] Comment on above: Performed By: #### L 500.2500 #### [facility] [address] [place], [address] Erythrocyte distribution width (RBC) [Ratio] 15.2 % High 11.6-14.6 [facility] Comment on above: Performed By: #### L 500.2500 #### [facility] [address] [place], [address] Hematocrit (Bld) [Volume fraction] 31.1 % Low 37-47 [facility] Comment on above: Performed By: #### L 500.2500 #### [facility] [address] [place], [address] Hemoglobin (Bld) [Mass/Vol] 10.2 g/dL Low 12.0-15.0 [facility] Comment on above: Performed By: #### L 500.2500 #### [facility] [address] [place], [address] IG% 1.000 High 0.0-0.9 [facility] Comment on above: Result Comment: IG% - Immature Granulocytes (promyelocytes, myelocytes and metamyelocytes) > 1% indicates that a LEFT SHIFT is Present. Performed By: #### L 500.2500 #### [facility] [address] [place], [address] Lymphocytes/100 WBC (Bld) 8.5 % Low 19-41 [facility] Comment on above: Performed By: #### L 500.2500 #### [facility] [address] [place], [address] MCH (RBC) [Entitic mass] 28.7 pg Normal 27.0-32.0 [facility] Comment on above: Performed By: #### L 500.2500 #### [facility] [address] [place], [address] MCHC (RBC) [Mass/Vol] 32.8 g/dL Normal 32-36 [facility] Comment on above: Performed By: #### L 500.2500 #### [facility] [address] [place], [address] MCV (RBC) [Entitic vol] 87.6 fL Normal 81-99 [facility] Comment on above: Performed By: #### L 500.2500 #### [facility] [address] [place], [address] Monocytes/100 WBC (Bld) 6.8 % Normal 0-10 [facility] Comment on above: Performed By: #### L 500.2500 #### [facility] [address] [place], [address] Neutrophils/100 WBC (Bld) 83.2 % High 47-70 [facility] Comment on above: Performed By: #### L 500.2500 #### [facility] [address] [place], [address] Nucleated RBC (Bld) [#/Vol] 0 10*3/uL Normal 0-5 [facility] Comment on above: Performed By: #### L 500.2500 #### [facility] [address] [place], [address] Platelet mean volume (Bld) [Entitic vol] 9.0 fL Normal 6.2-12.0 [facility] Comment on above: Performed By: #### L 500.2500 #### [facility] [address] [place], [address] Platelets (Bld) [#/Vol] 224 10*3/uL Normal 150-450 [facility] Comment on above: Performed By: #### L 500.2500 #### [facility] [address] [place], [address] RBC (Bld) [#/Vol] 3.55 10*6/uL Low 4.2-5.4 [facility] Comment on above: Performed By: #### L 500.2500 #### [facility] [address] [place], [address] RDW SD 49.2 fl High 35.1-43.9 [facility] Comment on above: Performed By: #### L 500.2500 #### [facility] [address] [place], [address] WBC (Bld) [#/Vol] 12.8 10*3/uL High 4.4-11.0 [facility] Comment on above: Performed By: #### L 500.2500 #### [facility] [address] [place], [address] Comprehensive Metabolic Prof [facility] 04-17-2024 Albumin [Mass/Vol] 3.0 g/dL Low 3.2-5.0 [facility] Comment on above: Performed By: #### L 501.080 #### [facility] [address] [place], [address] Albumin/Globulin [Mass ratio] 0.8 {ratio} Low 0.9-2.4 [facility] Comment on above: Performed By: #### L 501.080 #### [facility] [address] [place], [address] ALK P 66 U/L Normal 45-117 [facility] Comment on above: Performed By: #### L 501.080 #### [facility] [address] [place], [address] ALT [Catalytic activity/Vol] 7 U/L Low 13-56 [facility] Comment on above: Performed By: #### L 501.080 #### [facility] [address] [place], [address] AST [Catalytic activity/Vol] 11 U/L Low 15-37 [facility] Comment on above: Performed By: #### L 501.080 #### [facility] [address] [place], [address] Bilirubin [Mass/Vol] 0.60 mg/dL Normal 0.20-1.00 [facility] Comment on above: Result Comment: For patients on eltrombopag therapy, use of Dimension [place] TBIL is not recommended. Performed By: #### L 501.080 #### [facility] [address] [place], [address] BUN/CRE 11.1 RATIO Normal 10-20 [facility] Comment on above: Performed By: #### L 501.080 #### [facility] [address] [place], [address] CA,Total 8.8 mg/dL Normal 8.5-10.1 [facility] Comment on above: Performed By: #### L 501.080 #### [facility] [address] [place], [address] Chloride [Moles/Vol] 91 mmol/L Low 98-107 [facility] Comment on above: Performed By: #### L 501.080 #### [facility] [address] [place], [address] CO2 [Moles/Vol] 25.0 mmol/L Normal 21.0-32.0 [facility] Comment on above: Performed By: #### L 501.080 #### [facility] [address] [place], [address] Creatinine [Mass/Vol] 1.17 mg/dL High 0.55-1.02 [facility] Comment on above: Result Comment: The validity of the calculated GFR GFRAA in patients over 70 years has not been determined. Clinical correlation is essential. Performed By: #### L 501.080 #### [facility] [address] [place], [address] ECRCL 30.52 ml/min Normal [facility] Comment on above: Performed By: #### L 501.080 #### [facility] [address] [place], [address] EST GFR - AA 56 mL/min Low >60 [facility] Comment on above: Result Comment: Afri can [place] GFR Calc Performed By: #### L 501.080 #### [facility] [address] [place], [address] GAP 11 Normal 5-15 [facility] Comment on above: Performed By: #### L 501.080 #### [facility] [address] [place], [address] GFR/1.73 sq M.predicted among non-blacks MDRD (S/P/Bld) [Vol rate/Area] 46 mL/min/{1.73_m2} Low >60 [facility] Comment on above: Result Comment: Non- GFR Calc Performed By: #### L 501.080 #### [facility] [address] [place], [address] Globulin (S) [Mass/Vol] 3.9 g/dL Normal 2.2-4.2 [facility] Comment on above: Performed By: #### L 501.080 #### [facility] [address] [place], [address] Glucose [Mass/Vol] 204 mg/dL High 74-106 [facility] Comment on above: Result Comment: Gluc ose result greater than or equal to 200 mg/dL suggests DIABETES MELLITUS per A.D.A. criteria. Performed By: #### L 501.080 #### [facility] [address] [place], [address] Potassium [Moles/Vol] 4.1 mmol/L Normal 3.5-5.1 [facility] Comment on above: Performed By: #### L 501.080 #### [facility] [address] [place], [address] Sodium [Moles/Vol] 127 mmol/L Low 136-145 [facility] Comment on above: Performed By: #### L 501.080 #### [facility] [address] [place], [address] T PROT 6.9 g/dL Normal 6.4-8.2 [facility] Comment on above: Performed By: #### L 501.080 #### [facility] [address] [place], [address] Urea nitrogen [Mass/Vol] 13 mg/dL Normal 7-18 [facility] Comment on above: Performed By: #### L 501.080 #### [facility] [address] [place], [address] Brain/Head without Contrasto n 04-16-2024 Brain/Head without Contrast [facility] [address] [place] [address] Brain/Head without Contrast MR#: [id number] Acct: [id number] Name: CYNDI MEJIA Rep #: [id number] : 1935 F 89 From: Jocelyn Car MD PCP: Dr. Shaquille Benjamin MD Status: REG ER Study: Brain/Head without Contrast Date of Exam: 03/29 Exam# [id number] Ordering Dr: Arturo Iglesias MD EXAM: CT [...] IMPRESSION: No acute intracranial abnormality. Reading Location: [id number] CC: Dr. Arturo Iglesias MD; Dr. Shaquille Benjamin MD Board Attendant: Signed Normal [facility] Emergency Department Summary on 04-16-2024 Emergency Department Summary [facility] Medical Records Department [address] [place] [address] Emergency Department Summary 04/16/24 MR#: [id number] Acct: [id number] Name: CNYDI MEJIA Rep #: [id number] : 1935 89 From: Arturo Iglesias MD PCP: Dr. Shaquille Benjamin MD Status:REG ER Location: ED HPI HPI - Fall History of Present Illness Chief Complaint: Fall Narrative Narrative: 89-year-old female resident of assisted living at [place], slipped out of the bed just prior [...] with movement. It is relieved by nothing. [facility] Medical History Wears dentures Wears glasses Post-menopausal [...] Congestive heart failure Atherosclerotic heart disease of [place] coronary artery without angina pectoris Essential hypertension [...] 04/13/19 Unkno wn History 325 mg tablet (Saline) levothyroxine 25 mcg tablet 25 mcg PO [...] Neurovascularly inta (more content not included)... Normal [facility] H AND P Exam - Hospitaliston 04-16-2024 H&P Exam - Hospitalist [facility] Medical Records Department [address] [place] [address] H P Exam - Hospitalist 04/16/24 2341 MR#: [id number] Acct: [id number] Name: CYNDI MEJIA Rep #: [id number] : 1935 89 From: Nichole Bautista MD PCP: Dr. Shaquille Benjamin MD Status:ADM IN Location: [facility] [id number] HPI - General General Date of Admission: [...] root s/p repair who presents to the [facility] on 04/16/24 with mechanical fall living at assisted living at [place] unfortunately slipping out of bed just prior [...] Congestive heart failure Atherosclerotic heart disease of [place] coronary artery without angina pectoris Essential hypertension Home Medications ???Medication ???Instructions ???Recorded ???Last Taken ???Type losartan 25 mg tablet 25 mg PO DAILY 10/08/18 10/31/21 H istory trazodone 50 mg tablet 50 mg PO QHS 10/08/18 10/31/21 His tory hydrocodone 7.5 mg-acetaminophen 1 tab PO Q8H PRN Pain 04/13/19 Unk nown History 325 mg tablet (Saline) levothyroxine 25 mcg tablet 25 mcg PO [...] of appe (more content not included)... Normal [facility] Shoulder min 2 Viewson 04-[address] Should[address] [facility] Imaging Services [address] [place] [address] Shoulder min 2 Views MR#: [id number] Acct: [id number] Name: CYNDI MEJIA Rep #: [id number] : 1935 F 89 From: Jocelyn Car MD PCP: Dr. Shaquille Benjamin MD Status: REG ER Study: Shoulder min 2 Views Date of Exam: 04/16/24 Exam# [id number] Ordering Dr: Arturo Iglesias MD PROCEDURE: SHOULDER MIN 2 VIEWS REASON FOR EXAM: Trauma. TECHNIQUE: 7 views of the right shoulder. COMPARISON: None. FINDINGS: Acute, displaced right humeral neck fracture. No evidence of dislocation. Degenerative changes of the acromioclavicular and glenohumeral joints. RAD/Shoulder min 2 Views IMPRESSION: Acute, displaced right humeral neck fracture. Reading Location: [place] [address] CC: Dr. Arturo Iglesias MD; Dr. Shaquille Benjamin MD Board Attendant: Signed Normal [facility] Sinus/Facial Boneon 04-16-19 Sinus/Facial Bone [facility] Imaging Services [address] [place] [address] [id number] Sinus/Facial Bone MR#: [id number] Acct: [id number] Name: CYNDI MEJIA Rep #: [id number] : 1935 F 89 From: Jocelyn Car MD PCP: Dr. Shaquille Benjamin MD Status: REG ER Study: Sinus/Facial Bone Date of Exam: 04/16/24 Exam# [id number] Ordering Dr: Arturo Iglesias MD PROCEDURE: SINUS/FACIAL [...] use of iterative reconstruction technique). Reading Location: [place] [address] CC: Dr. Arturo Iglesias MD; Dr. Shaquille Benjamin MD Board Attendant: Signed Normal [facility] Urinalysis, Completeon 04-16 BACTERIA Normal None Seen [facility] Comment on above: Order Comment: SENT LABEL TO MS3 TO COLLECT DRIVING TEACHER TO SPECIFY Result Comment: NO S PECIMEN COLLECTED. PATIENT DISCHARGED Performed By: #### L 400.0001 #### [facility] [address] [place], [address] BILIRUBIN URINE Normal Negative [facility] Comment on above: Order Comment: SENT LABEL TO MS3 TO COLLECT DRIVING TEACHER TO SPECIFY Result Comment: NO S PECIMEN COLLECTED. PATIENT DISCHARGED Performed By: #### L 400.0001 #### [facility] [address] [place], [address] Clarity (U) Normal Clear [facility] Comment on above: Order Comment: SENT LABEL TO MS3 TO COLLECT DRIVING TEACHER TO SPECIFY Result Comment: NO S PECIMEN COLLECTED. PATIENT DISCHARGED Performed By: #### L 400.0001 #### [facility] [address] [place], [address] Color (U) Normal Yellow [facility] Comment on above: Order Comment: SENT LABEL TO MS3 TO COLLECT DRIVING TEACHER TO SPECIFY Result Comment: NO S PECIMEN COLLECTED. PATIENT DISCHARGED Performed By: #### L 400.0001 #### [facility] [address] [place], [address] EPI,SQUAMOUS Normal 5-10 [facility] Comment on above: Order Comment: SENT LABEL TO MS3 TO COLLECT DRIVING TEACHER TO SPECIFY Result Comment: NO S PECIMEN COLLECTED. PATIENT DISCHARGED Performed By: #### L 400.0001 #### [facility] [address] [place], [address] GLUCOSE, UR Normal Normal [facility] Comment on above: Order Comment: SENT LABEL TO MS3 TO COLLECT DRIVING TEACHER TO SPECIFY Result Comment: NO S PECIMEN COLLECTED. PATIENT DISCHARGED Performed By: #### L 400.0001 #### [facility] [address] [place], [address] KETONE UR Normal Negative [facility] Comment on above: Order Comment: SENT LABEL TO MS3 TO COLLECT DRIVING TEACHER TO SPECIFY Result Comment: NO S PECIMEN COLLECTED. PATIENT DISCHARGED Performed By: #### L 400.0001 #### [facility] [address] [place], [address] LEUK ESTERASE Normal Negative [facility] Comment on above: Order Comment: SENT LABEL TO MS3 TO COLLECT DRIVING TEACHER TO SPECIFY Result Comment: NO S PECIMEN COLLECTED. PATIENT DISCHARGED Performed By: #### L 400.0001 #### [facility] [address] [place], [address] Mucus Ql (Urine sed) Normal [facility] Comment on above: Order Comment: SENT LABEL TO MS3 TO COLLECT DRIVING TEACHER TO SPECIFY Result Comment: NO S PECIMEN COLLECTED. PATIENT DISCHARGED Performed By: #### L 400.0001 #### [facility] [address] [place], [address] Nitrite Ql (U) Normal Negative [facility] Comment on above: Order Comment: SENT LABEL TO MS3 TO COLLECT DRIVING TEACHER TO SPECIFY Result Comment: NO S PECIMEN COLLECTED. PATIENT DISCHARGED Performed By: #### L 400.0001 #### [facility] [address] [place], [address] OCCULT BLOOD-UR Normal Negative [facility] Comment on above: Order Comment: SENT LABEL TO MS3 TO COLLECT DRIVING TEACHER TO SPECIFY Result Comment: NO S PECIMEN COLLECTED. PATIENT DISCHARGED Performed By: #### L 400.0001 #### [facility] [address] [place], [address] pH UR Normal 5.0 - 8.0 [facility] Comment on above: Order Comment: SENT LABEL TO MS3 TO COLLECT DRIVING TEACHER TO SPECIFY Result Comment: NO S PECIMEN COLLECTED. PATIENT DISCHARGED Performed By: #### L 400.0001 #### [facility] [address] [place], [address] PROT DIPSTX Normal Negative [facility] Comment on above: Order Comment: SENT LABEL TO MS3 TO COLLECT DRIVING TEACHER TO SPECIFY Result Comment: NO S PECIMEN COLLECTED. PATIENT DISCHARGED Performed By: #### L 400.0001 #### [facility] [address] [place], [address] RBC Normal 0-5 [facility] Comment on above: Order Comment: SENT LABEL TO MS3 TO COLLECT DRIVING TEACHER TO SPECIFY Result Comment: NO S PECIMEN COLLECTED. PATIENT DISCHARGED Performed By: #### L 400.0001 #### [facility] [address] [place], [address] SP.GR. DIPSTX Normal 1.002-1.030 [facility] Comment on above: Order Comment: SENT LABEL TO MS3 TO COLLECT DRIVING TEACHER TO SPECIFY Result Comment: NO S PECIMEN COLLECTED. PATIENT DISCHARGED Performed By: #### L 400.0001 #### [facility] [address] [place], [address] UR Preservative Normal [facility] Comment on above: Order Comment: SENT LABEL TO MS3 TO COLLECT DRIVING TEACHER TO SPECIFY Result Comment: NO S PECIMEN COLLECTED. PATIENT DISCHARGED Performed By: #### L 400.0001 #### [facility] [address] [place], [address] UROBILI Normal Normal [facility] Comment on above: Order Comment: SENT LABEL TO MS3 TO COLLECT DRIVING TEACHER TO SPECIFY Result Comment: NO S PECIMEN COLLECTED. PATIENT DISCHARGED Performed By: #### L 400.0001 #### [facility] [address] [place], [address] WBC Normal 0-5 [facility] Comment on above: Order Comment: SENT LABEL TO MS3 TO COLLECT DRIVING TEACHER TO SPECIFY Result Comment: NO S PECIMEN COLLECTED. PATIENT DISCHARGED Performed By: #### L 400.0001 #### [facility] [address] [place], [address] Bedside Glucoseon 02-27-2024 FINGERSTICK GLU 88 mg/dL Normal 74-106 [facility] Comment on above: Result Comment: CANDY GEMENT OF PATIENT CARE PER NURSING PROTOCOL Performed By: #### L 501.080 #### [facility] [address] [place], [address] EGD Reporton 02-27-[address] [facility] Medical Records Department [address] [place] [address] EGD Report MR#: [id number] Acct: [id number] Name: CYNDI MEJIA Rep #: [id number] : 1935 89 From: Lg Kirkland DO PCP: Dr. Shaquille Benjamin MD Status:[facility] Patient Name: Cyndi Mejia Procedure Date: 02/27/2024 [...] pathology results. Procedure Code(s): --- Professional --- 93483, Esophagogastroduodenosc opy, flexible, transoral; with transendoscopic balloon dilation of esophagus (less than 30 mm diameter) 19700, 59,51, Esophagogastroduodenosc opy, flexible, transoral; with biopsy, single or multiple CPT copyright 2021 [employer]. All rights reserved. The codes documented in this report are preliminary and upon medical biller/coder review may be revised to meet current compliance requirements. Lg Kirkland DO 02/27/2024 7:28:41 AM This report has been signed electronically. Number of Addenda: 0 Note Initiated On: 02/27/2024 6:44 AM 02/27/24 0729 Date Lg Kirkland DO Cosigner Signature: Date (if indicated) CC: Dr. Shaquille Benjamin MD; Lg Kirkland DO Date Dictated: 02/27/24 0644 Date Transcribed: Board Attendant: SALLY Signed [facility] MR/POSTOP.[facility] 02-27-2024 MR/POSTOP.[facility] Medical Records Department [address] [place] [address] Anesthesia Postop Eval I 02/27/2432 MR#: [id number] Acct: [id number] Name: CYNDI MEJIA Rep #: [id number] : 1935 89 From: Timur Peacock PCP: Dr. Shaquille Benjamin MD Status:REG SDC Y Race: C Location: [place] [address] Anesthesia: Postop Eval I Current Vital Signs [...] Timur Goncalves Signature: Date CC: Signed Normal [facility] MR/URDYEVDI1cv 02-27-2024 MR/POSTOPAN2 [facility] Medical Records Department [address] [place] [address] Anesthesia Postop Eval II 02/27/24 1139 MR#: [id number] Acct: [id number] Name: CYNDI MEJIA Rep #: [id number] : 1935 89 From: Abdi Medina MD PCP: Dr. Shaquille Benjamin MD Status:[facility] Y Race: C Location: EN Anesthesia Postop [...] Abdi Goncalves Signature: Date CC: Signed Normal [facility] Special Stain Group Ion Special Stain Group I ----- Patient Age/Sex Location Account Attending Physician CYNDI MEJIA 89/F EN [id number] Lg Kirkland DO Specimen: [id number] Received: 02/27/24 Status: CHLOÉ Mathis Num: [id number] Spec Type: EGD BIOPSY Roxana Dr: Lg Kirkland, DO HEADER OPERATION: EGD, biopsy, dilatation PRE-OP [...] totally submitted in one cassette. 02/27/2024 TC:3 [facility]:75021,23491 Patient Age/Sex Location Account Attending Physician CYNDI MEJIA 89/F EN [id number] Lg Kirkland DO Signed (signature on file) Dr. Rishi Bee MD 02/28/24 1110 Normal [facility] Comment on above: Performed By: #### L 501.080 #### [facility] [address] [place], [address] /CAROLEon 02-24-2024 /[facility] [address] [place] [address] PAT - Anesthesia 02/24/24 1055 MR#: [id number] Acct: [id number] Name: CYNDI MEJIA Rep #: [id number] : 1935 89 From: Abdi Medina MD PCP: Status:PRE [facility] [place] Y Race: C Location: EN Pre-Assessment Diagnosis/Proposed Procedure Planned Operative Procedure(s): EGD Anesthesia History Anesthesia History - molecular biologist: Anesthesia History - molecular biologist Hx Hospitalization No 02/24/24 09:33 Any Problems [...] take am of surgery PONV PONV - molecular biologist: PONV - molecular biologist Female Yes 02/24/24 09:33 HX of Motion [...] 03/07/23 14:38 Respiratory Assessment Respiratory Assessment - molecular biologist: Respiratory Tract Infection Hx - molecular biologist Hx Respiratory Tract Infection No 02/24/24 09:33 STOP Sleep Apnea STOP Sleep Apnea - molecular biologist: STOP Sleep Apnea - molecular biologist Hx Hypertension Yes: CONTROLLED WITH MEDS 02/24/24 [...] Tobacco Use History Tobacco Use History - molecular biologist: Tobacco Use History - molecular biologist Tobacco Use Smoking Status Never smoker 02/24/24 09:33 Hx Tobacco Use No 02/24/24 09:33 Years Smoking Packs Smoked per Day Smoking Cessation Date was within the last 15 years Hx Smoking Cessation Date Hx Smoking Cessation Counseling Hematologic Medial History Hematologic Hx - molecular biologist: Hematologic Medical Hx - auto detailer Hx of Blood Transfusion No 02/24/24 09:33 [...] confused, unrespo /Reproduction History /Reproductive History - molecular biologist: /Reproductive Hx- molecular biologist Hx Now No 02/24/24 09:33 Gestational Age [...] Congestive heart failure Atherosclerotic heart disease of [place] coronary artery without angina pectoris Essential hypertension Home Medications ???Medication ???Instructions ???Recorded ???Last Taken ?? (more content not included)... Normal [facility] Gastroenterology Visit Repor ton 02-07-2024 Gastroenterology Visit Report [facility] Gastroenterology [address] [place] [address] OFFICE VISIT Date of Service: 02/07/24 MR#: [id number] Acct: [id number] Name: CYNDI MEJIA Rep #: [id number] : 1935 Provider: RAZIA Melissa Age/Sex: 88/F Location[facility] Status: Signed Intake Vital Signs 03/07/23 14:38 Height 5 ft 6 in Intake Visit Reasons: Dysphagia Chief Complaint: dysphagia Allergies sitagliptin (From Febuvia) Allergy (Severe, Verified 03/07/23 14:34) Swelling face [...] Pain 04/13/19 02/07/24 History 325 mg tablet (Saline) pantoprazole 20 mg tablet,delayed 20 mg PO [...] History Anemia Arthritis Atherosclerotic heart disease of [place] coronary artery without angina pectoris Back pain [...] presents to the office today for f/u. I established 10.25.21 Accompanied by KATHY Horta. Recently coughed up a hotdog that she had eaten a day or two prior. Abnormal esophagram last month--concentric narrowing at distal esophagus at [facility]; barium tablet trapped at [facility]. Hx of esophageal stenosis requiring dilation. Last EGD [address] Gonzalez at [facility]. Lots of foam then; acid has [...] bowel h (more content not included)... Normal [facility] CNOVon 01-29-2024 CNOV Office Visit (FAMPWS ) CYNDI MEJIA ([id number]) 1935 F Date Time Provider Department 01/29/24 1:40 PM [facility] visit today, we recorded [...] Abs Lymph 1.00 - 4.00 k/uL 1.09 [place]% % 7.3 Abs [place] <0.87 k/uL 0.47 Eosin% % 2.5 Abs [...] mouth daily (more content not included)... Normal [facility] Radha 12-30-2023 [facility] Telephone (FAMPWS) MEJIACYNDI Tellez ([id number]) 1935 F Date Time Provider Department 12/30/23 SHAQUILLE BENJAMIN During your visit today, we recorded the following information about you: Shawn Dalton RN 12/30/2023 9:56 AM Signed Shalini with [facility] calls to request copy of PT order and notes from visit on 12/24/2023. Faxed per request to [phone] Shawn Dalton RN Allergies As of Date: 12/30/2023 Noted Allergy Reaction JANUVIA (SITAGLIPTIN) 10/14/2017 4 - Hives PENICILLIN 10/14/2017 4 - Hives Date Reviewed: 12/05/2023 Reviewed by: Jacob Morris APRN.BEHAVIORAL INSTRUCTOR - Fully Assessed Reason for Visit: Orders [...] Encounter Status:Closed by SHAWN DALTON on 12/30/23 [facility] CNOVreese 12-05-2023 CNOV Office Visit (UCWSTR ) CYNDI MEJIA ([id number]) 1935 F Date Time Provider Department 12/05/23 1:00 PM [facility] During your visit today, we recorded the following information about you: Temperature Pulse Respiration Blood pressure 97.2 degrees 87/minute 18/minute 147/72 Jacob Morris APRN.CNP 12/05/2023 1:25 PM Signed This note was created using Max-Viz. Subjective Cyndi Mejia is a 88 year [...] in her extremities. She is currently taking Saline for pain. Review of Systems As noted [...] - PREDNISONE 20 MG TABLET Jacob Morris APRN.BEHAVIORAL INSTRUCTOR Allergies As of Date: 12/05/2023 Noted Allergy Reaction JANUVIA (SITAGLIPTIN) 10/14/2017 4 - Hives PENICILLIN 10/14/2017 4 - Hives Date Reviewed: 12/05/2023 Reviewed by: Jacob Morris, ARMEN.BEHAVIORAL INSTRUCTOR - Fully Assessed Reason for Visit: Low [...] [E53.8] 08 (more content not included)... Normal [facility] CNOVon 10-29-2023 CNOV Office Visit (PODIWS ) CYNDI MEJIA ([id number]) 1935 F Date Time Provider Department 10/29/23 [...] disease) No date: Congestive heart failure (CHF) ([facility]) No date: Diabetic retinopathy ([facility]) No date: Diverticulitis No date: Esophageal stenosis No date: GERD (gastroesophageal reflux disease) No date: Hemorrhoids No date: HTN (hypertension) No date: Hyperlipidemia No date: Low magnesium level No date: Polyneuropathy in diabetes ([facility]) No date: Sleep apnea No date: SSS (sick sinus syndrome) ([facility]) No date: Type 2 diabetes mellitus ([facility]) No date: Zenker's diverticulum Current [...] for pro (more content not included)... Normal [facility] CY[facility] MEJIA ([id number]) 1935 F Date Time Provider Department 09/26/23 SHAQUILLE BENJAMINWS During your visit today, we recorded the [...] Diagnosis:Hypomagnesemi a [E83.42] Order(s):MAGNESIUM [SQMG1] Order #: [id number] FUTURE Prescriptions as of 09/26/2023 - Magnesium [...] Status:Closed by EM ALY on 09/26/23 Normal [facility] ALBUMIN/CREATININE RATIO, UR INEon 09-25-2023 Albumin DL <= 20 mg/L (U) [Mass/Vol] 30.2 mg/L Normal [facility] Comment on above: Order Comment: Speci men Type: URINE SPECIMENOrdering Facility: [facility] Address: [address] [place] [address] Performed By: #### U TOX2, UACR ####[facility] LABCLIA [id number] [facility] [id number] [place] [address] [place] Albumin/Creatinine (U) [Mass ratio] 33 mg/g High <30 [facility] Comment on above: Order Comment: Speci men Type: URINE SPECIMENOrdering Facility: [facility] Address: [address] [place] [address] Result Comment: Adul t Male and Female Nephrotic Criteria: <30 mg/g is considered normal to mildly increased 30-300 mg/g is considered moderately increased >300 mg/g is considered severely increased KDIGO. (2013). KDIGO 2012 Clinical Practice Guideline for the Evaluation and Management of Chronic Kidney Disease. Official Journal of the International Society of Nephrology, 3(1), 1-150. Performed By: #### U TOX2, UACR ####[facility] LABIA [id number] [place] [id number] [place] Creatinine (U) [Mass/Vol] 91.2 mg/dL Normal 20.0-300.0 [facility] Comment on above: Order Comment: Speci men Type: URINE SPECIMENOrdering Facility: [facility] Address: [address] [place] [address] Performed By: #### U TOX2, UACR ####[facility] LABIA [id number] [place] [id number] [place] Basic metabolic 2000 panelon 09-25-2023 Anion gap [Moles/Vol] 10 mmol/L Normal 8-15 [facility] Comment on above: Order Comment: Speci men Type: BLOOD SPECIMENOrdering Facility: [facility] Address: [address] [place] [address] Performed By: #### 2 4321-2, ####[facility] [id number] [place] [address] [place] Calcium [Mass/Vol] 9.4 mg/dL Normal 8.5-10.2 [facility] Comment on above: Order Comment: Speci men Type: BLOOD SPECIMENOrdering Facility: [facility] Address: [address] [place] [address] Performed By: #### 2 4321-2, ####[facility]ITAL[facility] [id number] [place] [address] [place] Chloride [Moles/Vol] 97 mmol/L Low 98-107 [facility] Comment on above: Order Comment: Speci men Type: BLOOD SPECIMENOrdering Facility: [facility] Address: [address] [place] [address] Performed By: #### 2 4321-2, ####[facility] WESTWNCLIA [id number] [place] [address] [place] CO2 [Moles/Vol] 26 mmol/L Normal 22-30 [facility] Comment on above: Order Comment: Speci men Type: BLOOD SPECIMENOrdering Facility: [facility] Address: [address] [place] [address] Performed By: #### 2 432-2, ####[facility]ITAL[facility]CL[facility] [id number] [place] [address] [place] Creatinine [Mass/Vol] 0.86 mg/dL Normal 0.58-0.96 [facility] Comment on above: Order Comment: Speci men Type: BLOOD SPECIMENOrdering Facility: [facility] Address: [address] [place] [address] Performed By: #### 2 43202-26, ####[facility]ITAL[facility]CLIA [id number] [place] [address] [place] Creatinine and Glomerular filtration rate.predicted panel (S/P/Bld) 65 mL/min/1.73m??? Normal >=60 [facility] Comment on above: Order Comment: Speci men Type: BLOOD SPECIMENOrdering Facility: [facility] Address: [address] [place] [address] Result Comment: Mercy mated Glomerular Filtration Rate [...] actual GFR. Performed By: #### 2 4321-2, ####[facility]ITALNCLIA [id number] [place] [address] [place] Glucose [Mass/Vol] 151 mg/dL High 74-99 [facility] Comment on above: Order Comment: Speci men Type: BLOOD SPECIMENOrdering Facility: [facility] Address: [address] [place], [place] [id number] Result Comment: The [place] [employer] (ADA) provides guidance for cutoff [...] Standards of Medical Care in Diabetes 2016, [place] [employer]. Diabetes Care. 2016.39(Suppl 1). Performed By: #### 2 4321-, ####[facility] JULIETAWWILFRED [id number] [place] [address] [place] Potassium [Moles/Vol] 4.2 mmol/L Normal 3.7-5.1 [facility] Comment on above: Order Comment: David narayanan Type: BLOOD SPECIMENOrdering Facility: [facility] Address: [address] [place] [address] Performed By: #### 2 432-, ####[facility] JULIETAWWILFRED [id number] [place] [address] [place] [place] Sodium [Moles/Vol] 133 mmol/L Low 136-144 [facility] Comment on above: Order Comment: Speci men Type: BLOOD SPECIMENOrdering Facility: [facility] Address: [address] [place], [place] [id number] Performed By: #### 2 432-, ####[facility] [id number] [place] [address] [place] Urea nitrogen [Mass/Vol] 17 mg/dL Normal 7-21 [facility] Comment on above: Order Comment: Speci men Type: BLOOD SPECIMENOrdering Facility: [facility] Address: [address] [place] [address] Performed By: #### 2 4321-2, 83143-1 ####[facility] [id number] [place] [address] [place] CBC W Auto Differential pane l (Bld)on 09-25-2023 Basophils (Bld) [#/Vol] 0.03 10*3/uL Normal <0.11 [facility] Comment on above: Order Comment: Speci men Type: BLOOD SPECIMENOrdering Facility: [facility] Address: [address] [place] [address] Performed By: #### 5 7021-8 ####[facility] [id number] [place] [address] [place] Basophils/100 WBC (Bld) 0.5 % Normal [facility] Comment on above: Order Comment: Speci men Type: BLOOD SPECIMENOrdering Facility: [facility] Address: [address] [place] [address] Performed By: #### 5 7021-8 ####[facility] [id number] [place] [address] [place] Differential cell count method Nom (Bld) Auto Normal [facility] Comment on above: Order Comment: Speci men Type: BLOOD SPECIMENOrdering Facility: [facility] Address: [address] [place] [address] Performed By: #### 5 7021-8 ####[facility] [id number] [place] [address] [place] Eosinophils (Bld) [#/Vol] 0.16 10*3/uL Normal <0.46 [facility] Comment on above: Order Comment: Speci men Type: BLOOD SPECIMENOrdering Facility: [facility] Address: [address] [place] [address] Performed By: #### 5 7021-8 ####[facility] [id number] [place] [address] [place] Eosinophils/100 WBC (Bld) 2.5 % Normal [facility] Comment on above: Order Comment: Speci men Type: BLOOD SPECIMENOrdering Facility: [facility] Address: [address] [place] [address] Performed By: #### 5 7021-8 ####[facility] HOSPITALNCLIArmaan [id number] [place] [address] [place] Erythrocyte distribution width (RBC) [Ratio] 16.1 % High 11.5-15.0 [facility] Comment on above: Order Comment: Speci men Type: BLOOD SPECIMENOrdering Facility: [facility] Address: [address] [place] [address] Performed By: #### 5 7021-8 ####[facility] H[facility]ITALNCLIA [id number] [place] [address] [place] Hematocrit (Bld) [Volume fraction] 33.7 % Low 36.0-46.0 [facility] Comment on above: Order Comment: Speci men Type: BLOOD SPECIMENOrdering Facility: [facility] Address: [address] [place] [address] Performed By: #### 5 7021-8 ####[facility] [id number] [place] [address] [place] Hemoglobin (Bld) [Mass/Vol] 10.4 g/dL Low 11.5-15.5 [facility] Comment on above: Order Comment: Speci men Type: BLOOD SPECIMENOrdering Facility: [facility] Address: [address] [place] [address] Performed By: #### 5 7021-8 ####[facility] MILLWNCLIA [id number] [place] [address] [place] Immature granulocytes (Bld) [#/Vol] 0.03 10*3/uL Normal <0.10 [facility] Comment on above: Order Comment: Speci men Type: BLOOD SPECIMENOrdering Facility: [facility] Address: [address] [place] [address] Performed By: #### 5 7021-8 ####[facility] [id number] [place] [address] [place] Immature granulocytes/100 WBC (Bld) 0.5 % Normal [facility] Comment on above: Order Comment: Speci men Type: BLOOD SPECIMENOrdering Facility: [facility] Address: [address] [place] [address] Performed By: #### 5 7021-8 ####[facility] [id number] [place] [address] [place] Lymphocytes (Bld) [#/Vol] 1.09 10*3/uL Normal 1.00-4.00 [facility] Comment on above: Order Comment: Speci men Type: BLOOD SPECIMENOrdering Facility: [facility] Address: [address] [place] [address] Performed By: #### 5 7021-8 ####[facility]ALLIA [id number] [place] [address] [place] Lymphocytes/100 WBC (Bld) 16.9 % Normal [facility] Comment on above: Order Comment: Speci men Type: BLOOD SPECIMENOrdering Facility: [facility] Address: [address] [place] [address] Performed By: #### 5 7021-8 ####[facility] HOSPITALNCLIA [id number] [place] [address] [place] MCH (RBC) [Entitic mass] 24.7 pg Low 26.0-34.0 [facility] Comment on above: Order Comment: Speci men Type: BLOOD SPECIMENOrdering Facility: [facility] Address: [address] [place] [address] Performed By: #### 5 7021-8 ####[facility] HOSPITALNCJEANIEA [id number] [place] [address] [place] MCHC (RBC) [Mass/Vol] 30.9 g/dL Normal 30.5-36.0 [facility] Comment on above: Order Comment: Speci men Type: BLOOD SPECIMENOrdering Facility: [facility] Address: [address] [place] [address] Performed By: #### 5 7021-8 ####[facility] HOSPITALNCArmaan [id number] [place] [address] [place] MCV (RBC) [Entitic vol] 80.0 fL Normal 80.0-100.0 [facility] Comment on above: Order Comment: Speci men Type: BLOOD SPECIMENOrdering Facility: [facility] Address: [address] [place] [address] Performed By: #### 5 7021-8 ####[facility] HOSPITALNCLI [id number] [place] [address] [place] Monocytes (Bld) [#/Vol] 0.47 10*3/uL Normal <0.87 [facility] Comment on above: Order Comment: Speci men Type: BLOOD SPECIMENOrdering Facility: [facility] Address: [address] [place] [address] Performed By: #### 5 7021-8 ####[facility] HOSPITALNCLIA [id number] [address] [place] Monocytes/100 WBC (Bld) 7.3 % Normal [facility] Comment on above: Order Comment: Speci men Type: BLOOD SPECIMENOrdering Facility: [facility] Address: [address] [place] [address] Performed By: #### 5 7021-8 ####[facility] MARGARITALEALIA [id number] [place] [address] [place] Neutrophils (Bld) [#/Vol] 4.68 10*3/uL Normal 1.45-7.50 [facility] Comment on above: Order Comment: Speci men Type: BLOOD SPECIMENOrdering Facility: [facility] Address: [address] [place] [address] Performed By: #### 5 7021-8 ####[facility]ALL[facility] [id number] [place] [address] [place] Neutrophils/100 WBC (Bld) 72.3 % Normal [facility] Comment on above: Order Comment: Speci men Type: BLOOD SPECIMENOrdering Facility: [facility] Address: [address] [place] [address] Performed By: #### 5 7021-8 ####[facility]ITALLIA [id number] [place] [address] [place] Nucleated RBC (Bld) [#/Vol] 10*3/uL Normal <0.01 [facility] Comment on above: Order Comment: Speci men Type: BLOOD SPECIMENOrdering Facility: [facility] Address: [address] [place] [address] Performed By: #### 5 7021-8 ####[facility]ALL[facility] [id number] [place] [address] [place] Nucleated RBC/100 WBC (Bld) [Ratio] 0.0 /100 WBC Normal [facility] Comment on above: Order Comment: Speci men Type: BLOOD SPECIMENOrdering Facility: [facility] Address: [address] [place] [address] Performed By: #### 5 7021-8 ####[facility] MILLWNCLIA [id number] [place] [address] [place] Platelet mean volume (Bld) [Entitic vol] 9.5 fL Normal 9.0-12.7 [facility] Comment on above: Order Comment: Speci men Type: BLOOD SPECIMENOrdering Facility: [facility] Address: [address] [place] [address] Performed By: #### 5 7021-8 ####[facility]ITALNCLIA [id number] [place] [address] [place] Platelets (Bld) [#/Vol] 208 10*3/uL Normal 150-400 [facility] Comment on above: Order Comment: Speci men Type: BLOOD SPECIMENOrdering Facility: [facility] Address: [address] [place] [address] Performed By: #### 5 7021-8 ####[facility] HOSPITALNCLIA [id number] [place] [address] [place] RBC (Bld) [#/Vol] 4.21 10*6/uL Normal 3.90-5.20 [facility] Comment on above: Order Comment: Speci men Type: BLOOD SPECIMENOrdering Facility: [facility] Address: [address] [place] [address] Performed By: #### 5 7021-8 ####[facility]ITALNCLIA [id number] [place] [address] [place] WBC (Bld) [#/Vol] 6.46 10*3/uL Normal 3.70-11.00 [facility] Comment on above: Order Comment: Speci men Type: BLOOD SPECIMENOrdering Facility: [facility] Address: [address] [place] [address] Performed By: #### 5 7021-8 ####[facility]ITALNCLIA [id number] [place] [address] [place] Ferritin SerPl-mCncon 2023 Ferritin [Mass/Vol] 23.6 ng/mL Normal 14.7-205.1 [facility] Comment on above: Order Comment: Ovidioi men Type: BLOOD SPECIMENOrdering Facility: [facility] Address: [address] [place] [address] Performed By: #### 2 276-4, 89809-4, 2132-9 ####[facility] LABCLIA [id number] [place] [address] [place] HbA1c (Bld)on 09-25-2023 Average glucose Estimated from glycated hemoglobin (Bld) [Mass/Vol] 146 mg/dL Normal [facility] Comment on above: Order Comment: Speci men Type: BLOOD SPECIMENOrdering Facility: [facility] Address: [address] [place] [address] Result Comment: eAG: (Estimated average glucose) is a calculated value from HgbA1c and is insurance claim representative of the average blood glucose level in the last 2-3 month period. Performed By: #### 5 5454-3 ####[facility] LABCLIA [id number] [place] [address] [place] HbA1c (Bld) [Mass fraction] 6.7 % High 4.3-5.6 [facility] Comment on above: Order Comment: Speci men Type: BLOOD SPECIMENOrdering Facility: [facility] Address: [address] [place] [address] Result Comment: Amer [place] Diabetes Association guidelines indicate that patients with HgbA1c in the range 5.7-6.4% are at increased risk for development of diabetes, and intervention by lifestyle modification may be beneficial. HgbA1c greater or equal to 6.5% is considered diagnostic of diabetes. Performed By: #### 5 5454-3 ####[facility] LABCLIA [id number] [place] [address] [place] Iron and Iron binding capaci ty panelon 07-31-2024 Iron [Mass/Vol] 45 ug/dL Normal 41-186 [facility] Comment on above: Order Comment: Speci men Type: BLOOD SPECIMENOrdering Facility: [facility] Address: [address] [place] [address] Performed By: #### 2 276-4, 40619-5, 2131-10 ####[facility] LABIA [id number] [place] [id number] [place] Iron binding capacity [Mass/Vol] 427 ug/dL High 232-386 [facility] Comment on above: Order Comment: Speci men Type: BLOOD SPECIMENOrdering Facility: [facility] Address: [address] [place] [address] Performed By: #### 2 276-4, 42446-8, 2131-10 ####[facility] LABCLIA [id number] [place] [id number] [place] Iron/TIBC [Molar ratio] 10.5 % Low 15.0-57.0 [facility] Comment on above: Order Comment: Speci men Type: BLOOD SPECIMENOrdering Facility: [facility] Address: [address] [place] [address] Performed By: #### 2 276-4, 01604-7, 2131-10 ####[facility] LABIA [id number] [place] [id number] [place] Magnesium SerPl-mCncon 09-24 Magnesium [Mass/Vol] 1.2 mg/dL Low 1.7-2.3 [facility] Comment on above: Order Comment: Speci men Type: BLOOD SPECIMENOrdering Facility: [facility] Address: [address] [place] [address] Performed By: #### 2 4321-2, 03351-6 ####[facility]IESA [id number] [place] [address] [place] TOXICOLOGY SCREEN, ROUTINE U RINEon 09-25-2023 Amphetamines Confirm (U) [Mass/Vol] Negative Normal Negative [facility] Comment on above: Order Comment: Speci men Type: URINE SPECIMENOrdering Facility: [facility] Address: [address] [place] [address] Result Comment: Cuto ff threshold at 1000 ng/mL. Performed By: #### U TOX2, UACR ####[facility] LABCLIA [id number] [place] [address] [place] BARBITURATES, URINE Negative Normal Negative [facility] Comment on above: Order Comment: Speci men Type: URINE SPECIMENOrdering Facility: [facility] Address: [address] [place] [address] Result Comment: Cuto ff threshold at 200 ng/mL. Performed By: #### U TOX2, UACR ####[facility] LABCLIA [id number] [place] [address] [place] BENZODIAZEPINES, UR Negative Normal Negative [facility] Comment on above: Order Comment: Speci men Type: URINE SPECIMENOrdering Facility: [facility] Address: [address] [place] [address] Result Comment: Cuto ff threshold at 200 ng/mL. Performed By: #### U TOX2, UACR ####[facility] LABCLIA [id number] [place] [address] [place] Cannabinoids Screen Ql (U) Negative Normal Negative [facility] Comment on above: Order Comment: Speci men Type: URINE SPECIMENOrdering Facility: [facility] Address: [address] [place] [address] Result Comment: Cuto ff threshold at 50 ng/mL. Performed By: #### U TOX2, UACR ####[facility] LABCLIA [id number] [place] [address] [place] Cocaine Ql (U) Negative Normal Negative [facility] Comment on above: Order Comment: Speci men Type: URINE SPECIMENOrdering Facility: [facility] Address: [address] [place] [address] Result Comment: Cuto ff threshold at 300 ng/mL. Performed By: #### U TOX2, UACR ####[facility] LABCLIA [id number] [place] [address] [place] Ethanol (U) [Mass/Vol] <11 Normal <11 [facility] Comment on above: Order Comment: Speci men Type: URINE SPECIMENOrdering Facility: [facility] Address: [address] [place] [address] Performed By: #### U TOX2, UACR ####[facility] LABCLIA [id number] [place] [address] [place] Opiates Screen Ql (U) Positive Abnormal Negative [facility] Comment on above: Order Comment: Speci men Type: URINE SPECIMENOrdering Facility: [facility] Address: [address] [place] [address] Result Comment: Cuto ff threshold at 300 ng/mL. Performed By: #### U TOX2, UACR ####[facility] LABIA [id number] [place] [address] [place] oxyCODONE cutoff Screen (U) [Mass/Vol] Negative Normal Negative [facility] Comment on above: Order Comment: Speci men Type: URINE SPECIMENOrdering Facility: [facility] Address: [address] [place] [address] Result Comment: Cuto ff threshold at 100 ng/mL. Performed By: #### U TOX2, UACR ####[facility] LABIA [id number] [place] [address] [place] Phencyclidine Ql (U) Negative Normal Negative [facility] Comment on above: Order Comment: Speci men Type: URINE SPECIMENOrdering Facility: [facility] Address: [address] [place] [address] Result Comment: Cuto ff threshold at 25 ng/mL. Performed By: #### U TOX2, UACR ####[facility] LABCLIA [id number] [place] [address] [place] Vit B12 SerPl-mCncon 024 Cobalamin (Vitamin B12) [Mass/Vol] 366 pg/mL Normal 232-1245 [facility] Comment on above: Order Comment: Speci men Type: BLOOD SPECIMENOrdering Facility: [facility] Address: [address] [place] [address] Performed By: #### 2 276-4, 81263-2, 2132-9 ####[facility] LABCLIA [id number] [address] [place] CNPMaría Elena 09-23-2023 [facility] CYNDI MEJIA ([id number]) 1935 F Date Time Provider Department 09/23/23 SHAQUILLE BENJAMIN [facility] During your visit today, we recorded the [...] Status:Closed by MACY BADILLO on 09/25/23 Normal [facility] CNOVon 09-20-2023 CNOV Office Visit ([facility] ) CYNDI MEJIA ([id number]) 1935 F Date Time Provider Department 09/20/23 3:40 PM [facility] During your visit today, we recorded the following information about you: Pulse Blood pressure Weight 68/minute 120/68 75.3 kg Shaquille Benjamin MD 09/20/2023 5:39 PM Signed Patient presents with: Follow Up HPI: Patient presents today for office visit for follow up. Has not done as well since having to move to a [employer] apartment. Not as happy. Upset with lack [...] 25 mg daily Nebivolol 5 mg daily [place] nurse checks BP occ. Stable. Denies chest [...] Will be seeing a new cardiology in [facility]. MEDICATIONS: Current Outpatient Medications Medication [...] Date KARL (more content not included)... Normal [facility] Comprehensive metabolic 2000 panelon 05-22-2023 Albumin [Mass/Vol] 4.1 g/dL 3.9 - 4.9 g/dL [facility] ALP [Catalytic activity/Vol] 72 U/L 34 - 123 U/L [facility] ALT [Catalytic activity/Vol] 9 U/L 7 - 38 U/L [facility] Anion gap [Moles/Vol] 12 mmol/L 9 - 18 mmol/L [facility] AST [Catalytic activity/Vol] 18 U/L 13 - 35 U/L [facility] Bilirubin [Mass/Vol] 0.4 mg/dL 0.2 - 1 .3 mg/dL [facility] Calcium [Mass/Vol] 9.5 mg/dL 8.5 - 10. 2 mg/dL [facility] Chloride [Moles/Vol] 92 mmol/L Low 97 - 10 5 mmol/L [facility] CO2 [Moles/Vol] 25 mmol/L 22 - 30 mmol/L [facility] Creatinine [Mass/Vol] 0.85 mg/dL 0.58 - 0.96 mg/dL [facility] Estimated Glomerular Filtration Rate 66 mL/min/1.73m >=60 mL/min/1.73m [facility] Glucose [Mass/Vol] 165 mg/dL High 74 - 99 mg/dL [facility] Potassium [Moles/Vol] 4.8 mmol/L 3.7 - 5.1 mmol/L [facility] Protein [Mass/Vol] 7.2 g/dL 6.3 - 8.0 g/dL [facility] Sodium [Moles/Vol] 129 mmol/L Low 136 - 144 mmol/L [facility] Urea nitrogen [Mass/Vol] 13 mg/dL 7 - 21 mg/dL [facility] HbA1c (Bld)on 05-22-2023 Average glucose Estimated from glycated hemoglobin (Bld) [Mass/Vol] 143 mg/dL [facility] HbA1c (Bld) [Mass fraction] 6.6 % High 4.3 - 5.6 % [facility] LIPID PANEL, NONFASTINGon Cholesterol [Mass/Vol] 154 mg/dL <200 mg/dL [facility] HDL Cholesterol, Nonfasting 74 mg/dL >39 mg/dL [facility] LDL Cholesterol, Nonfasting 37 mg/dL <100 mg/dL [facility] LDL/HDL Ratio, Nonfasting 0.50 mg/dL <2.54 mg/dL [facility] Non HDL Cholesterol, Nonfasting 80 mg/dL <130 mg/dL [facility] Total Chol/HDL Ratio, Nonfasting 2.08 mg/dL <5.10 mg/dL [facility] Triglycerides, Nonfasting 213 mg/dL High <150 mg/dL [facility] VLDL Cholesterol, Nonfasting 43 mg/dL High <30 mg/dL [facility] MAGNESIUM Don 05-22-2023 Magnesium [Mass/Vol] 1.3 mg/dL Low 1.7 - 2 .3 mg/dL [facility] TSH BLDon 05-22-2023 TSH Qn 3.410 m[IU]/L 0.270 - 4.200 mIU/L [facility] VITAMIN B12 BLOODon 05-22-19 24 Cobalamin (Vitamin B12) [Mass/Vol] 364 pg/mL 232 - 1,245 pg/mL [facility] CBC W Auto Differential pane l (Bld)on 05-21-2023 Basophils (Bld) [#/Vol] 0.05 10*3/uL <0.11 k/uL [facility] Basophils/100 WBC (Bld) 0.5 % C [facility] Differential cell count method Nom (Bld) Auto [facility] Eosinophils (Bld) [#/Vol] 0.15 10*3/uL <0.46 k/uL [facility] Eosinophils/100 WBC (Bld) 1.6 % [facility] Erythrocyte distribution width (RBC) [Ratio] 15.4 % High 11.5 - 15.0 % [facility] Hematocrit (Bld) [Volume fraction] 34.1 % Low 36.0 - 46.0 % [facility] Hemoglobin (Bld) [Mass/Vol] 10.2 g/dL Low 11.5 - 15.5 g/dL [facility] Immature granulocytes (Bld) [#/Vol] 0.04 10*3/uL <0.10 k/uL [facility] Immature granulocytes/100 WBC (Bld) 0.4 % [facility] Lymphocytes (Bld) [#/Vol] 1.41 10*3/uL 1.00 - 4.00 k/uL [facility] Lymphocytes/100 WBC (Bld) 15.5 % [facility] MCH (RBC) [Entitic mass] 24.5 pg Low 26.0 - 34.0 pg [facility] MCHC (RBC) [Mass/Vol] 29.9 g/dL Low 30.5 - 36.0 g/dL [facility] MCV (RBC) [Entitic vol] 82.0 fL 80.0 - 100.0 fL [facility] Monocytes (Bld) [#/Vol] 0.75 10*3/uL <0.87 k/uL [facility] Monocytes/100 WBC (Bld) 8.2 % C [facility] Neutrophils (Bld) [#/Vol] 6.70 10*3/uL 1.45 - 7.50 k/uL [facility] Neutrophils/100 WBC (Bld) 73.8 % [facility] Nucleated RBC (Bld) [#/Vol] <0.01 k/uL [facility] Nucleated RBC/100 WBC (Bld) [Ratio] 0.0 /100 WBC [facility] Platelet mean volume (Bld) [Entitic vol] 9.7 fL 9.0 - 12.7 fL [facility] Platelets (Bld) [#/Vol] 256 10*3/uL 150 - 400 k/uL [facility] RBC (Bld) [#/Vol] 4.16 10*6/uL 3.90 - 5.2 0 m/uL [facility] WBC (Bld) [#/Vol] 9.10 10*3/uL 3.70 - 11. 00 k/uL [facility] Glucose Glucometer (BldC) [M ass/Vol]on 11-01-2021 Glucose [Mass/Vol] 133 mg/dL 74-106 [facility] Work Phone: Comment on above: MANAGEMENT OF PATIEN T CARE PER NURSING [employer] Vital Signs Date Time Vital Sign Value Performing Clinician Faci lity 01-29-2024 13:35-0500 Body height 170.2 cm Shaquille Benjamin MD Work Phone: [facility] 01-29-2024 13:35-0500 Body mass index (BMI) [Ratio] 24.87 kg/m2 Shaquille Benjamin MD Work Phone: [facility] 01-29-2024 13:35-0500 Body weight 72.03 kg Shaquille Benjamin MD Work Phone: [facility] 01-29-2024 13:35-0500 Diastolic blood pressure 52 mm[Hg] Shaquille Benjamin MD Work Phone: [facility] 01-29-2024 13:35-0500 Heart rate 84 /min Shaquille Benjamin MD Work Phone: [facility] 01-29-2024 13:35-0500 SaO2% (BldA) [Mass fraction] 96 % Shaquille Benjamin MD Work Phone: [facility] 01-29-2024 13:35-0500 Systolic blood pressure 98 mm[Hg] Shaquille Benjamin MD Work Phone: [facility] 12-05-2023 13:12-0400 Body temperature 97.2 [degF] Jacob Morris CAFETERIA ATTENDANT.BEHAVIORAL INSTRUCTOR Work Phone: [facility] 12-05-2023 13:12-0400 Diastolic blood pressure 72 mm[Hg] Jacob Moomaclarence CAFETERIA ATTENDANT.BEHAVIORAL INSTRUCTOR Work Phone: [facility] 12-05-2023 13:12-0400 Heart rate 87 /min Jacob Moomaw CAFETERIA ATTENDANT.BEHAVIORAL INSTRUCTOR Work Phone: [facility] 12-05-2023 13:12-0400 Respiratory rate 18 /min Jacob Moomaw CAFETERIA ATTENDANT.BEHAVIORAL INSTRUCTOR Work Phone: [facility] 12-05-2023 13:12-0400 SaO2% (BldA) [Mass fraction] 98 % Jacob Moomaw CAFETERIA ATTENDANT.BEHAVIORAL INSTRUCTOR Work Phone: [facility] 12-05-2023 13:12-0400 Systolic blood pressure 147 mm[Hg] Jacob Moomaw CAFETERIA ATTENDANT.BEHAVIORAL INSTRUCTOR Work Phone: [facility] 09-20-2023 15:27-0400 Body mass index (BMI) [Ratio] 26 kg/m2 Shaquille Benjamin MD Work Phone: [facility] 09-20-2023 15:27-0400 Body weight 75.3 kg Shaquille Benjamin MD Work Phone: [facility] 09-20-2023 15:27-0400 Diastolic blood pressure 68 mm[Hg] Shaquille Benjamin MD Work Phone: [facility] 09-20-2023 15:27-0400 Heart rate 68 /min Shaquille Benjamin MD Work Phone: [facility] 09-20-2023 15:27-0400 SaO2% (BldA) [Mass fraction] 98 % Shaquille Benjamin MD Work Phone: [facility] 09-20-2023 15:27-0400 Systolic blood pressure 120 mm[Hg] Shaquille Benjamin MD Work Phone: [facility] 05-21-2023 15:36-0400 Body height 170.2 cm Shaquille Benjamin MD Work Phone: [facility] 05-21-2023 15:36-0400 Body weight 77.56 kg Shaquille Benjamin MD Work Phone: [facility] 05-21-2023 15:36-0400 Diastolic blood pressure 72 mm[Hg] Shaquille Benjamin MD Work Phone: [facility] 05-21-2023 15:36-0400 Heart rate 64 /min Shaquille Benjamin MD Work Phone: [facility] 05-21-2023 15:36-0400 SaO2% (BldA) [Mass fraction] 98 % Shaquille Benjamin MD Work Phone: [facility] 05-21-2023 15:36-0400 Systolic blood pressure 146 mm[Hg] Shaquille Benjamin MD Work Phone: [facility] 11-07-2022 13:51-0400 Body height 170.2 cm Shaquille Benjamin MD Work Phone: [facility] 11-07-2022 13:51-0400 Body weight 73.48 kg Shaquille Benjamin MD Work Phone: [facility] 11-07-2022 13:51-0400 Diastolic blood pressure 94 mm[Hg] Shaquille Benjamin MD Work Phone: [facility] 11-07-2022 13:51-0400 Heart rate 64 /min Shaquille Benjamin MD Work Phone: [facility] 11-07-2022 13:51-0400 SaO2% (BldA) [Mass fraction] 99 % Shaquille Benjamin MD Work Phone: [facility] 11-07-2022 13:51-0400 Systolic blood pressure 188 mm[Hg] Shaquille Benjamin MD Work Phone: [facility] 07-30-2022 13:07-0400 Diastolic blood pressure 72 mm[Hg] Shaquille Benjamin MD Work Phone: [facility] 07-30-2022 13:07-0400 Heart rate 74 /min Shaquille Benjamin MD Work Phone: [facility] 07-30-2022 13:07-0400 SaO2% (BldA) [Mass fraction] 98 % Shaquille Benjamin MD Work Phone: [facility] 07-30-2022 13:07-0400 Systolic blood pressure 138 mm[Hg] Shaquille Benjamin MD Work Phone: [facility] 06-06-2022 13:32-0400 Body weight 74.84 kg Shaquille Benjamin MD Work Phone: [facility] 06-06-2022 13:32-0400 Diastolic blood pressure 72 mm[Hg] Shaquille Benjamin MD Work Phone: [facility] 06-06-2022 13:32-0400 Heart rate 78 /min Shaquille Benjamin MD Work Phone: [facility] 06-06-2022 13:32-0400 SaO2% (BldA) [Mass fraction] 97 % Shaquille Benjamin MD Work Phone: [facility] 06-06-2022 13:32-0400 Systolic blood pressure 142 mm[Hg] Shaquille Benjamin MD Work Phone: [facility] 03-07-2022 13:53-0500 Body height 170.2 cm Shaquille Benjamin MD Work Phone: [facility] 03-07-2022 13:53-0500 Body weight 74.84 kg Shaquille Benjamin MD Work Phone: [facility] 03-07-2022 13:53-0500 Diastolic blood pressure 58 mm[Hg] Shaquille Benjamin MD Work Phone: [facility] 03-07-2022 13:53-0500 Heart rate 64 /min Shaquille Benjamin MD Work Phone: [facility] 03-07-2022 13:53-0500 SaO2% (BldA) [Mass fraction] 98 % Shaquille Benjamin MD Work Phone: [facility] 03-07-2022 13:53-0500 Systolic blood pressure 116 mm[Hg] Shaquille Benjamin MD Work Phone: [facility] 11-08-2021 15:16-0400 Body weight 74.39 kg Shaquille Benjamin MD Work Phone: [facility] 11-08-2021 15:16-0400 Diastolic blood pressure 72 mm[Hg] Shaquille Benjamin MD Work Phone: [facility] 11-08-2021 15:16-0400 Heart rate 84 /min Shaquille Benjamin MD Work Phone: [facility] 11-08-2021 15:16-0400 Systolic blood pressure 120 mm[Hg] Shaquille Benjamin MD Work Phone: [facility] 11-01-2021 07:15-0400 Body temperature 97.2 [degF] Dr. Shaquille Benjamin Work Phone: [facility] Work Phone: 11-01-2021 07:15-0400 Diastolic blood pressure 77 mm[Hg] Dr. Shaquille Benjamin Work Phone: [facility] Work Phone: 11-01-2021 07:15-0400 Heart rate 63 /min Dr. Shaquille Benjamin Work Phone: [facility] Work Phone: 11-01-2021 07:15-0400 Respiratory rate 16 /min Dr. Shaquille Benjamin Work Phone: [facility] Work Phone: 11-01-2021 07:15-0400 SaO2% (BldA) [Mass fraction] 97 % Dr. Shaquille Benjamin Work Phone: [facility] Work Phone: 11-01-2021 07:15-0400 Systolic blood pressure 182 mm[Hg] Dr. Shaquille Benjamin Work Phone: [facility] Work Phone: 11-01-2021 06:03-0400 Body height 167.[address] Shaquilel Benjamin Work Phone: [facility] Work Phone: 11-01-2021 06:03-0400 Body mass index (BMI) [Ratio] 26.4 kg/m2 Dr. Shaquille Benjamin Work Phone: [facility] Work Phone: 11-01-2021 06:03-0400 Body weight 74.[address] Shaquille Benjamin Work Phone: [facility] Work Phone: 08-09-2021 15:31-0400 Body weight 78.02 kg Shaquille Benjamin MD Work Phone: [facility] 08-09-2021 15:31-0400 Diastolic blood pressure 72 mm[Hg] Shaquille Benjamin MD Work Phone: [facility] 08-09-2021 15:31-0400 Heart rate 80 /min Shaquille Benjamin MD Work Phone: [facility] 08-09-2021 15:31-0400 Systolic blood pressure 132 mm[Hg] Shaquille Benjamin MD Work Phone: [facility] Encounters Encounter Date Encounter Type Care Provider Facility Start: 10-13-2024 ambulatory Senia CHACKO Facility:[facility] Start: 09-01-2024 End: 09-01-[address] Shaquille Benjamin MD Work Phone: -[facility] Start: 09-01-2024 End: 09-01-[address] Senia Billy MD -[facility] Work Phone: Start: 08-11-2024 ambulatory Senia CHACKO Facility:[facility] Start: 08-11-2024 Registered Referred Senia Billy MD [facility] Start: 08-04-2024 End: 08-04-2024 ambulatory Shaquille CHACKO -[facility] Start: 08-04-2024 End: 08-04-[address] Senia Billy MD -[facility] Work Phone: Start: 07-08-2024 End: 07-08-[address] Shaquille Benjamin MD Work Phone: [facility] Start: 07-08-2024 End: 07-08-2024 Patient encounter procedure Oly MANTILLA -[facility] Work Phone: Start: 06-30-2024 End: 06-30-2024 Patient encounter procedure Oly Jane SEWAGE SCREEN OPERATOR-C -[facility] Work Phone: Start: 06-30-2024 End: 06-30-[address] Shaquille Benjamin MD Work Phone: -[facility] Start: 06-30-2024 Registered Referred Senia Billy MD [facility] Start: 06-23-2024 ambulatory Senia simeon OLS Facility:[facility] Start: 06-23-2024 Registered Referred Senia Billy MD [facility] Start: 06-22-2024 End: 06-22-2024 ambulatory [facility] [employer] [facility] [address] Start: 06-22-2024 End: 06-22-2024 Patient encounter procedure Kiara Monet [facility] [address] Comment on above: Population Health Na vigation Outreach ([facility] ) Start: 06-16-2024 ambulatory Efsunilcariwilson Stephan blanco OLS Facility:[facility] Start: 06-16-2024 Registered Referred Senia Billy MD [facility] Start: 06-10-2024 ambulatory Efemma Stephan blanco OLS Facility:[facility] Start: 06-10-2024 Registered Referred Senia Billy MD [facility] Start: 06-02-2024 ambulatory Efemma Stephan simeon OLS Facility:[facility] Start: 06-02-2024 Registered Referred Senia Billy MD [facility] Start: 05-27-2024 ambulatory Efemma Stephan blanco OLS Facility:[facility] Start: 05-27-2024 Registered Referred Senia Billy MD [facility] Start: 05-22-2024 End: 05-22-2024 ambulatory Loraine Patterson RN [employer] Comment on above: Single outreach for Chronic Disease Management Start: 05-20-2024 End: 05-20-2024 Patient encounter procedure [facility] [address] Comment on above: Population Health Na vigation Outreach ([facility] ) Start: 05-20-2024 End: 05-20-2024 ambulatory Kiara Monet [facility] Start: 05-20-2024 Registered Referred Senia Billy MD [facility] Start: 05-12-2024 ambulatory [facility] Facility:[facility] Start: 05-07-2024 End: 05-07-2024 ambulatory Shaquille Vida Facility:[facility] Start: 05-05-2024 End: 05-05-2024 ambulatory Senia Billy Facility:[facility] Start: 05-04-2024 End: 05-04-2024 ambulatory Oly Jane Facility:[facility] Start: 05-01-2024 End: 05-01-2024 ambulatory Loraine Patterson RN [employer] Comment on above: Bi-Weekly Outreach ( Recurring) for Chronic Disease Management Start: 04-28-2024 ambulatory Lgzacarias Kirkland Facility :[facility] Start: 04-19-2024 End: 05-01-2024 Evaluation and management of inpatient JUAN ROSS MD [facility] Facility:[facility] Start: 04-16-2024 ambulatory Nichole Bautista [facility] Start: 04-16-2024 End: 04-19-2024 Evaluation and management of inpatient Nichole Bautista Facility:[facility] Start: 04-08-2024 End: 04-08-2024 ambulatory Carissa Larson RN Work Phone: [employer] Comment on above: Bi-Weekly Outreach ( Recurring) for Chronic Disease Management Start: 03-25-2024 End: 03-25-2024 ambulatory Loraine Patterson RN [employer] Comment on above: Initial enrollment o swathi for Chronic Disease Management Start: 03-15-2024 End: 03-16-2024 Refill Shaquille Benjamin MD Work Phone: [facility] Comment on above: Refill Request Start: 02-27-2024 End: 02-27-2024 ambulatory Shaquille Sourav Facility:[facility] Start: 02-26-2024 End: 02-27-2024 MC Get Medical Advice Shaquille Benjamin MD Work Phone: [facility] Comment on above: Saline refill. Refill Request Start: 02-07-2024 End: 02-07-2024 ambulatory Shaquille Benjamin [facility] Start: 01-29-2024 End: 01-29-2024 ambulatory SHAQUILLE BENJAMIN Facility:[facility] Start: 01-29-2024 End: 01-29-2024 Patient encounter procedure Shaquille Benjamin MD Work Phone: [facility] [place] Comment on above: Essential hypertensi on (Primary Dx); Coronary artery disease involving [place] heart without angina pectoris, unspecified vessel or [...] Telephone encounter Shaquille Benjamin MD Work Phone: [facility] [place] Comment on above: Orders Start: 12-24-2023 End: 12-24-2023 [facility] Shaquille Benjamin MD Work Phone: [facility] Comment on above: Gait disturbance (Pr imary [...] 12-16-2023 ambulatory Shaquille Benjamin MD Work Phone: [facility] [place] Comment on above: Pain Start: 12-12-2023 End: 12-13-2023 MC Get Medical Advice Shaquille Benjamin MD Work Phone: [facility] [place] Comment on above: Trazodone refill Start: 12-05-2023 End: 12-05-2023 ambulatory [facility] Facility:[facility] Start: 12-05-2023 End: 12-05-2023 Patient encounter procedure Jacob Morris ARMENJoseSIMRAN Work Phone: [facility] Comment on above: Strain of lumbar reg ion, initial encounter (Primary Dx) Start: 11-30-2023 End: 12-02-2023 Refill Shaquille Benjamin MD Work Phone: [facility] [place] Comment on above: Refill Request Start: 11-29-2023 End: 11-29-2023 Refill Shaquille Benjamin MD Work Phone: [facility] [place] Comment on above: Refill Request Start: 11-11-2023 End: 11-11-2023 Refill Shaquille Benjamin MD Work Phone: [facility] [place] Comment on above: Refill Request Start: 10-29-2023 End: 10-29-2023 ambulatory [facility] Facility:[facility] Start: 10-29-2023 End: 10-29-2023 Patient encounter procedure Jocelyn Brothers Work Phone: Podiatry Comment on above: Type 2 diabetes ashwini itus with complication, without long-term current use of insulin (HCC) (Primary Dx); Onychomycosis; Diminished pulses in lower extremity Start: 10-28-2023 End: 10-29-2023 Refill Shaquille Benjamin MD Work Phone: [facility] [place] Comment on above: Refill Request Start: 09-26-2023 Telephone encounter Shaquille Benjamin MD Work Phone: [facility] [place] Comment on above: Results Start: 09-25-2023 End: 09-25-2023 [facility] Start: 09-23-2023 Telephone encounter Shaquille Benjamin MD Work Phone: [facility] [place] Comment on above: Orders Start: 09-20-2023 End: 09-20-2023 Patient encounter procedure Shaquille Benjamin MD Work Phone: [facility] [place] Comment on above: Tachycardia-bradycar geeta (HCC) (Primary [...] Start: 09-20-2023 End: 09-20-2023 ambulatory SHAQUILLE BENJAMIN Facility:[facility] Start: 09-16-2023 Refill Shaquille Benjamin MD Work Phone: [facility] [place] Comment on above: Refill Request Start: 08-27-2023 Refill Shaquille Benjamin MD Work Phone: [facility] Comment on above: Refill Request Start: 08-05-2023 Refill [facility] Comment on above: Refill Request Start: 06-10-2023 Refill Shaquille Benjamin MD Work Phone: [facility] Comment on above: Refill Request Start: 06-03-2023 Refill Shaquille Benjamin MD Work Phone: [facility] Comment on above: Refill Request Start: 05-21-2023 End: 05-21-2023 Patient encounter procedure Shaquille Benjamin MD Work Phone: [facility] [place] Comment on above: Essential hypertensi on (Primary Dx); Coronary artery disease involving [place] heart without angina pectoris, unspecified vessel or lesion type; Hyperlipidemia, mixed; Vitamin B12 deficiency; Type 2 diabetes mellitus with complication, without long-term current use of insulin (HCC); Hypomagnesemia; Subclinical hypothyroidism; Bilateral carotid artery stenosis; Zenker diverticulum; Tachycardia-bradycardia (HCC); Pure hypercholesterolemia; Depression, unspecified depression type; Hyponatremia; Need for vaccination Start: 11-07-2022 End: 11-07-2022 Patient encounter procedure Shaquille Benjamin MD Work Phone: [facility] [place] Comment on above: Coronary artery dise ase involving [place] heart without angina pectoris, unspecified vessel or [...] Telephone encounter Shaquille Benjamin MD Work Phone: [facility] [place] Comment on above: Results Start: 08-18-2022 Refill Shaquille Benjamin MD Work Phone: [facility] [place] Comment on above: Refill Request Start: 07-31-2022 Telephone encounter Shaquille Benjamin MD Work Phone: [facility] [place] Comment on above: Forms (Lori Moran ) Start: 07-30-2022 End: 07-30-2022 Patient encounter procedure Shaquille Benjamin MD Work Phone: [facility] [place] Comment on above: Hyponatremia (Primar y Dx); Hypomagnesemia; Acute midline thoracic back pain; Osteoarthritis of both knees, unspecified osteoarthritis type; Spinal stenosis of lumbar region, unspecified whether neurogenic claudication present; Vitamin B12 deficiency; GERD without esophagitis; Zenker diverticulum; Coronary artery disease involving [place] heart without angina pectoris, unspecified vessel or lesion type; Essential hypertension; Hyperlipidemia, mixed; 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); Depression, unspecified depression type; Type 2 diabetes mellitus with complication, without long-term current use of insulin (HCC); Subclinical hypothyroidism Start: 07-20-2022 ambulatory Shaquille Benjamin MD Work Phone: [facility] [place] Comment on above: Lab work Upcoming vi sit Start: 06-06-2022 End: 06-06-2022 Patient encounter procedure Shaquille Benjamin MD Work Phone: [facility] [place] Comment on above: Essential hypertensi on (Primary Dx); Coronary artery disease involving [place] heart without angina pectoris, unspecified vessel or [...] 05-14-2022 Refill Shaquille Benjamin MD Work Phone: [facility] [place] Comment on above: Refill Request Start: 04-03-2022 Refill Shaquille Benjamin MD Work Phone: [facility] [place] Comment on above: Refill Request (Need s today) Start: 03-07-2022 End: 03-07-2022 Patient encounter procedure Shaquille Benjamin MD Work Phone: [facility] [place] Comment on above: Type 2 diabetes ashwini itus with complication, without long-term current use of insulin (HCC) (Primary Dx); Encounter for immunization; 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); Hyperlipidemia, mixed; Coronary artery disease involving [place] heart without angina pectoris, unspecified vessel or lesion type; Chronic thoracic back pain, unspecified back pain laterality; ELKIN (obstructive sleep apnea); Vitamin B12 deficiency; Zenker diverticulum; Hyponatremia; Hypomagnesemia; Subclinical hypothyroidism; Bilateral carotid artery stenosis; Chronic anemia Start: 02-18-2022 Refill Shaquille Benjamin MD Work Phone: [facility] [place] Comment on above: Refill Request Start: 01-11-2022 Refill Shaquille Benjamin MD Work Phone: [facility] [place] Comment on above: Refill Request Start: 12-06-2021 End: 12-06-2021 ambulatory Larissa Ellis PT Work Phone: [facility] Comment on above: Primary osteoarthrit is of both knees (Primary Dx); Chronic thoracic back pain, unspecified back pain laterality; Generalized weakness Start: 11-08-2021 End: 11-08-2021 Patient encounter procedure Shaquille Benjamin MD Work Phone: [facility] Comment on above: Coronary artery dise ase involving [place] heart without angina pectoris, unspecified vessel or [...] 11-05-2021 Refill Shaquille Benjamin MD Work Phone: [facility] Comment on above: Refill Request Start: 11-03-2021 End: 11-03-[address] Shaquille Benjamin Work Phone: [facility] Work Phone: Start: 11-03-2021 End: 11-03-[address] Shaquille Benjamin Work Phone: [facility] Start: 11-01-2021 Telephone encounter Shaquille Benjamin MD Work Phone: [facility] Comment on above: Results Start: 11-01-2021 Non-patient / Non-visit Dr. Jessica Benjamin Work Phone: [facility] Start: 11-01-2021 End: 11-01-2021 Admission to same day surgery center Dr. Shaquille Benjamin Work Phone: [facility] Start: 10-26-2021 Get Medical Advice Shaquille Benjamin MD Work Phone: [facility] Comment on above: Lab orders Start: 10-25-2021 End: 10-25-[address] Shaquille Benjamin Work Phone: [facility] Start: 09-22-2021 ambulatory Shaquille Benjamin MD Work Phone: [facility] [place] Comment on above: esophagogram Start: 09-22-2021 E-mail encounter fro m caregiver Shaquille Benjamin MD Work Phone: [facility] Start: 09-22-2021 End: 09-22-2021 [facility] Start: 09-15-2021 ambulatory Shaquille Benjamin MD Work Phone: [facility] [place] Comment on above: Food caught Start: 08-24-2021 Refill Shaquille Benjamin MD Work Phone: [facility] [place] Comment on above: Refill Request Start: 08-09-2021 End: 08-09-2021 Patient encounter procedure Shaquille Benjamin MD Work Phone: [facility] [place] Comment on above: Vitamin B12 deficien cy (Primary Dx); Acute midline thoracic back pain; Osteoarthritis of both knees, unspecified osteoarthritis type; Type 2 diabetes mellitus with complication, without long-term current use of insulin (HCC); Essential hypertension; Bilateral carotid artery stenosis; Subclinical hypothyroidism; Coronary artery disease involving [place] heart without angina pectoris, unspecified vessel or lesion type; Zenker diverticulum; GERD without esophagitis; Depression, unspecified depression type; Hyperlipidemia, mixed; Anemia, unspecified type Start: 08-03-2021 Get Medical Advice Shaquille Benjamin MD Work Phone: [facility] [place] Comment on above: Lab orders Start: 07-26-2021 Refill Shaquille Benjamin MD Work Phone: [facility] [place] Comment on above: Refill Request Start: 06-22-2021 Refill [facility]quille [facility] MD [facility] Comment on above: Refill Request Procedures Date Procedure Procedure Detail Performing Clinician Start: 05-21-2023 [employer] COVID-19 VACCINE ( SEASON) AGE 12+ YR [...] Detail Author Start: 11-04-2028 Urine microalbumin profile [facility] Start: 10-28-2024 Diabetic foot examination Diabetic Foot Exam [facility] Start: 09-24-2024 Hepatitis B screening Urine Al bumin:Creatinine Ratio [facility] Start: 09-19-2024 Anxiety Screening Anxiety Screening [facility] Start: 09-19-2024 Covid-19 Vaccine ( season) Covid-19 Vaccine ( season) [facility] Comment on above: Postponed from 09/19 (Declined at this time) Start: 05-20-2024 Hepatitis B surface antibody level LDL Cholesterol [facility] Start: 05-20-2024 RSV Vaccine (1 - 1-d ose 60+ series) RSV Vaccine (1 - 1-dose 60+ series) [facility] Comment on above: Postponed from 02/09 (Declined at this time) Start: 05-20-2024 RSV Vaccine (1 - 1-d ose 75+ series) RSV Vaccine (1 - 1-dose 75+ series) [facility] Comment on above: Postponed from 02/09 (Declined at this time) Start: 05-20-2024 Shingrix Vaccine (2 of 3) Shingrix Vaccine (2 of 3) [facility] Comment on above: Postponed from 02/03 (Declined at this time) Start: 05-15-2024 Glaucoma screening Dilated Retinal E xam [facility] Start: 05-01-2024 End: 05-01-2024 Patient encounter procedure 05/01/2024 3:00 PM EST Office Visit Family Constance Laura [address] [place] [address] Shaquille Benjamin MD [address] [place] [address] 3 mo follow up [facility] Constance Sanchez Comment on above: 3 mo follow up Start: 04-28-2024 End: 07-28-2024 CBC W Auto Differential panel - Blood COMPLETE BLOOD COUNT AND DIFFERENTIAL Lab Routine Essential hypertension Expected: 04/28/2024, Expires: 07/28/2024 [facility] Work Phone: Comment on above: Expected: 04/28/2024 , Expires: 07/28/2024 Start: 04-28-2024 End: 07-28-2024 Cobalamin (Vitamin B12) [Mass/volume] in Serum or Plasma VITAMIN B12 Lab Routine Vitamin B12 deficiency Expected: 04/28/2024, Expires: 07/28/2024 [facility] Comment on above: Expected: 04/28/2024 , Expires: 07/28/2024 Start: 04-28-2024 End: 07-28-2024 Comprehensive metabolic 2000 panel - Serum or Plasma COMPREHENSIVE METABOLIC PANEL Lab Routine Essential hypertension Expected: 04/28/2024, Expires: 07/28/2024 [facility] Comment on above: Expected: 04/28/2024 , Expires: 07/28/2024 Start: 04-28-2024 End: 07-28-2024 Hemoglobin A1c in Blood HEMOGLOBIN A1C Lab Routine Type 2 diabetes mellitus with complication, without long-term current use of insulin (HCC) Expected: 04/28/2024, Expires: 07/28/2024 [facility] Comment on above: Expected: 04/28/2024 , Expires: 07/28/2024 Start: 04-28-2024 End: 07-28-2024 Lipid 1996 panel - Serum or Plasma LIPID PANEL BASIC Lab Routine Essential hypertension Expected: 04/28/2024, Expires: 07/28/2024 [facility] Comment on above: Expected: 04/28/2024 , Expires: 07/28/2024 Start: 04-28-2024 End: 07-28-2024 Magnesium [Mass/volume] in Serum or Plasma MAGNESIUM Lab Routine Essential hypertension Expected: 04/28/2024, Expires: 07/28/2024 [facility] Comment on above: Expected: 04/28/2024 , Expires: 07/28/2024 Start: 04-28-2024 End: 07-28-2024 Thyrotropin [Units/volume] in Serum or Plasma THYROID STIMULATING HORMONE Lab Routine Subclinical hypothyroidism Expected: 04/28/2024, Expires: 07/28/2024 [facility] Comment on above: Expected: 04/28/2024 , Expires: 07/28/2024 Start: 03-27-2024 Hemoglobin A1c measurement HbA1C [facility] Start: 02-26-2024 Advance Directive Discussion Advance Directive Discussion [facility] Start: 02-07-2024 End: 02-07-2024 Patient encounter procedure 02/07/2024 2:00 PM EST Office Visit Podiatry [address] [place] [address] Jocelyn Brothers [address] [place] [address] 3 month follow up nail care Podiatry Comment on above: 3 month follow up na il care Start: 01-29-2024 End: 01-29-2024 Patient encounter procedure 01/29/2024 1:40 PM EST Office Visit Family Constance Sanchez [address] [place] [address] Shaquille Benjamin MD [address] [place] [address] 4 month follow up Family Constance Sanchez Comment on above: 4 month follow up Start: 12-24-2023 End: 12-24-2023 [facility] 12/24/2023 11:00 AM EDT [facility] Family Medicine [facility] [address] [place] [address] Shaquille Benjamin MD [address] [place] [id number] discuss order for physical therapy [facility] Comment on above: discuss order for ph ysical therapy Start: 11-21-2023 Hemoglobin A1c measurement HbA1C [facility] Start: 10-29-2023 End: 10-29-2023 Patient encounter procedure 10/29/2023 2:30 PM EDT Office Visit Podiatry [address] [place], [place] [phone] Jocelyn Brothers [address] [place], [place] [id number] Type 2 diabetes mellitus with complication, without long-term current use of ins... Podiatry Comment on above: Type 2 diabetes ashwini itus with complication, without long-term current use of ins... Start: 10-27-2023 Covid-19 Vaccine ( season) Covid-19 Vaccine ( season) [facility] Start: 10-27-2023 Covid-19 Vaccine ( season) Covid-19 Vaccine () [facility] Start: 10-27-2023 Influenza vaccination Influenza Vacc ine (#1) [facility] Start: 09-26-2023 End: 12-26-2023 Magnesium [Mass/volume] in Serum or Plasma MAGNESIUM Lab Routine Hypomagnesemia Expected: 09/26/2023, Expires: 12/26/2023 [facility] Work Phone: Comment on above: Expected: 09/26/2023 , Expires: 12/26/2023 Start: 09-20-2023 End: 09-20-2023 Patient encounter procedure 09/20/2023 3:40 PM EDT Office Visit Family Constance Sanchez [address] [place], [place] [phone] Shaquille Benjamin MD [address] [place], [place] [phone] 4 month follow up Family Constance Sanchez Comment on above: 4 month follow up Start: 09-20-2023 End: 12-20-2023 Basic metabolic 2000 panel - Serum or Plasma BASIC METABOLIC PANEL Lab Routine Type 2 diabetes mellitus with complication, without long-term current use of insulin (HCC) Hyponatremia Expected: 09/20/2023, Expires: 12/20/2023 [facility] Comment on above: Expected: 09/20/2023 , Expires: 12/20/2023 Start: 09-20-2023 End: 12-20-2023 CBC W Auto Differential panel - Blood COMPLETE BLOOD COUNT AND DIFFERENTIAL Lab Routine Anemia, unspecified type Expected: 09/20/2023, Expires: 12/20/2023 [facility] Work Phone: Comment on above: Expected: 09/20/2023 , Expires: 12/20/2023 Start: 09-20-2023 End: 12-20-2023 Cobalamin (Vitamin B12) [Mass/volume] in Serum or Plasma VITAMIN B12 Lab Routine Anemia, unspecified type Expected: 09/20/2023, Expires: 12/20/2023 [facility] Comment on above: Expected: 09/20/2023 , Expires: 12/20/2023 Start: 09-20-2023 Covid-19 Vaccine () Covid-19 Vaccine () [facility] Start: 09-20-2023 End: 12-20-2023 Ferritin [Mass/volume] in Serum or Plasma FERRITIN Lab Routine Anemia, unspecified type Expected: 09/20/2023, Expires: 12/20/2023 [facility] Comment on above: Expected: 09/20/2023 , Expires: 12/20/2023 Start: 09-20-2023 End: 12-20-2023 Hemoglobin A1c in Blood HEMOGLOBIN A1C Lab Routine Type 2 diabetes mellitus with complication, without long-term current use of insulin (HCC) Expected: 09/20/2023, Expires: 12/20/2023 [facility] Comment on above: Expected: 09/20/2023 , Expires: 12/20/2023 Start: 09-20-2023 End: 12-20-2023 Iron and Iron binding capacity panel - Serum or Plasma IRON AND TIBC Lab Routine Anemia, unspecified type Expected: 09/20/2023, Expires: 12/20/2023 [facility] Comment on above: Expected: 09/20/2023 , Expires: 12/20/2023 Start: 09-20-2023 End: 12-20-2023 Magnesium [Mass/volume] in Serum or Plasma MAGNESIUM Lab Routine Hypomagnesemia Expected: 09/20/2023, Expires: 12/20/2023 [facility] Comment on above: Expected: 09/20/2023 , Expires: 12/20/2023 Start: 09-20-2023 End: 12-20-2023 Microalbumin/Creatinine [Mass Ratio] in Urine ALBUMIN/CREATININE RATIO, URINE Lab Routine Type 2 diabetes mellitus with complication, without long-term current use of insulin (HCC) Expected: 09/20/2023, Expires: 12/20/2023 [facility] Comment on above: Expected: 09/20/2023 , Expires: 12/20/2023 Start: 09-20-2023 End: 12-20-2023 TOXICOLOGY SCREEN, ROUTINE URINE TOXICOLOGY SCREEN, ROUTINE URINE Lab Routine Medication monitoring encounter Expected: 09/20/2023, Expires: 12/20/2023 [facility] Comment on above: Expected: 09/20/2023 , Expires: 12/20/2023 Start: 07-31-2023 3 comp foot exam completed DIABETIC FOOT EXAM [facility] Start: 07-31-2023 Diabetic foot examination Diabetic Foot Exam [facility] Start: 07-26-2023 Hepatitis B screening URINE AL BUMIN:CREATININE RATIO [facility] Start: 07-26-2023 Hepatitis B surface antibody level LDL CHOLESTEROL [facility] Start: 06-16-2023 Hepatitis C antibody , confirmatory test DILATED RETINAL EXAM [facility] Start: 01-24-2023 Hemoglobin A1c/Hemoglobin.total in Blood HBA1C [facility] Start: 11-07-2022 End: 01-07-2023 CBC W Auto Differential panel - Blood CBC + DIFF Lab Routine GERD without esophagitis Anemia, unspecified type Expected: 11/07/2022, Expires: 01/07/2023 [facility] Work Phone: Comment on above: Expected: 11/07/2022 , Expires: 01/07/2023 Start: 11-07-2022 End: 01-07-2023 Cobalamin (Vitamin B12) [Mass/volume] in Serum or Plasma VITAMIN B12 BLOOD Lab Routine Vitamin B12 deficiency Expected: 11/07/2022, Expires: 01/07/2023 [facility] Work Phone: Comment on above: Expected: 11/07/2022 , Expires: 01/07/2023 Start: 11-07-2022 End: 07-08-2023 Hemoglobin A1c in Blood HGB A1C Lab Routine Type 2 diabetes mellitus with complication, without long-term current use of insulin (HCC) Expected: 11/07/2022, Expires: 07/08/2023 [facility] Work Phone: Comment on above: Expected: 11/07/2022 , Expires: 07/08/2023 Start: 11-07-2022 End: 01-07-2023 Iron and Iron binding capacity panel - Serum or Plasma IRON + TIBC Lab Routine Anemia, unspecified type Expected: 11/07/2022, Expires: 01/07/2023 [facility] Work Phone: Comment on above: Expected: 11/07/2022 , Expires: 01/07/2023 Start: 11-05-2022 End: 01-05-2023 Basic metabolic 2000 panel - Serum or Plasma BASIC METABOLIC PNL Lab Routine Hyponatremia Expected: 11/05/2022, Expires: 01/05/2023 [facility] Work Phone: Comment on above: Expected: 11/05/2022 , Expires: 01/05/2023 Start: 10-30-2022 End: 12-30-2022 Basic metabolic 2000 panel - Serum or Plasma BASIC METABOLIC PNL Lab Routine Hypomagnesemia Expected: 10/30/2022, Expires: 12/30/2022 [facility] Work Phone: Comment on above: Expected: 10/30/2022 , Expires: 12/30/2022 Start: 10-30-2022 End: 12-30-2022 Magnesium [Mass/volume] in Serum or Plasma MAGNESIUM BLD Lab Routine Hyponatremia Expected: 10/30/2022, Expires: 12/30/2022 [facility] Work Phone: Comment on above: Expected: 10/30/2022 , Expires: 12/30/2022 Start: 10-26-2022 Influenza vaccination INFLUENZA (#1) [facility] Start: 09-02-2022 Hemoglobin A1c/Hemoglobin.total in Blood HBA1C [facility] Start: 08-07-2022 Hepatitis B screening URINE AL BUMIN:CREATININE RATIO [facility] Start: 08-07-2022 Hepatitis B surface antibody level LDL CHOLESTEROL [facility] Start: 07-24-2022 End: 09-23-2022 ALBUMIN/CREAT RATIO RND UR ALBUMIN/CREAT RATIO RND UR Lab Routine Type 2 diabetes mellitus with complication, without long-term current use of insulin (HCC) Expected: 07/24/2022, Expires: 09/23/2022 [facility] Work Phone: Comment on above: Expected: 07/24/2022 , Expires: 09/23/2022 Start: 07-24-2022 End: 09-23-2022 TOX SCREEN ROUT UR TOX SCREEN ROUT UR Lab Routine Encounter for medication monitoring Expected: 07/24/2022, Expires: 09/23/2022 [facility] Work Phone: Comment on above: Expected: 07/24/2022 , Expires: 09/23/2022 Start: 07-18-2022 End: 09-17-2022 Comprehensive metabolic 2000 panel - Serum or Plasma COMP METABOLIC PANEL Lab Routine Hyponatremia Expected: 07/18/2022, Expires: 09/17/2022 [facility] Work Phone: Comment on above: Expected: 07/18/2022 , Expires: 09/17/2022 Start: 07-18-2022 End: 09-17-2022 Hemoglobin A1c in Blood HGB A1C Lab Routine Type 2 diabetes mellitus with complication, without long-term current use of insulin (HCC) Expected: 07/18/2022, Expires: 09/17/2022 [facility] Work Phone: Comment on above: Expected: 07/18/2022 , Expires: 09/17/2022 Start: 07-18-2022 End: 09-17-2022 Lipid 1996 panel - Serum or Plasma LIPID PANEL BASIC Lab Routine Hyperlipidemia, mixed Expected: 07/18/2022, Expires: 09/17/2022 [facility] Work Phone: Comment on above: Expected: 07/18/2022 , Expires: 09/17/2022 Start: 07-18-2022 End: 09-17-2022 Magnesium [Mass/volume] in Serum or Plasma MAGNESIUM BLD Lab Routine Hypomagnesemia Expected: 07/18/2022, Expires: 09/17/2022 [facility] Work Phone: Comment on above: Expected: 07/18/2022 , Expires: 09/17/2022 Start: 07-18-2022 End: 09-17-2022 Thyrotropin [Units/volume] in Serum or Plasma TSH BLD Lab Routine Subclinical hypothyroidism Expected: 07/18/2022, Expires: 09/17/2022 [facility] Work Phone: Comment on above: Expected: 07/18/2022 , Expires: 09/17/2022 Start: 06-05-2022 End: 08-05-2022 Basic metabolic 2000 panel - Serum or Plasma BASIC METABOLIC PNL Lab Routine Hyponatremia Expected: 06/05/2022, Expires: 08/05/2022 [facility] Work Phone: Comment on above: Expected: 06/05/2022 , Expires: 08/05/2022 Start: 06-05-2022 End: 08-05-2022 CBC W Auto Differential panel - Blood CBC + DIFF Lab Routine Chronic anemia Expected: 06/05/2022, Expires: 08/05/2022 [facility] Work Phone: Comment on above: Expected: 06/05/2022 , Expires: 08/05/2022 Start: 06-05-2022 End: 08-05-2022 Cobalamin (Vitamin B12) [Mass/volume] in Serum or Plasma VITAMIN B12 BLOOD Lab Routine Vitamin B12 deficiency Expected: 06/05/2022, Expires: 08/05/2022 [facility] Work Phone: Comment on above: Expected: 06/05/2022 , Expires: 08/05/2022 Start: 06-05-2022 End: 08-05-2022 Iron and Iron binding capacity panel - Serum or Plasma IRON + TIBC Lab Routine Chronic anemia Expected: 06/05/2022, Expires: 08/05/2022 [facility] Work Phone: Comment on above: Expected: 06/05/2022 , Expires: 08/05/2022 Start: 06-05-2022 End: 08-05-2022 Magnesium [Mass/volume] in Serum or Plasma MAGNESIUM BLD Lab Routine Hypomagnesemia Expected: 06/05/2022, Expires: 08/05/2022 [facility] Work Phone: Comment on above: Expected: 06/05/2022 , Expires: 08/05/2022 Start: 05-24-2022 Hepatitis B screening URINE AL BUMIN:CREATININE RATIO [facility] Start: 05-24-2022 Hepatitis B surface antibody level LDL CHOLESTEROL [facility] Start: 05-11-2022 3 comp foot exam completed DIABETIC FOOT EXAM [facility] Start: 04-27-2022 COVID-19 VACCINE (6 - Moderna series) COVID-19 VACCINE (6 - Moderna series) [facility] Start: 02-25-2022 ADVANCE DIRECTIVE DISCUSSION ADVANCE DIRECTIVE DISCUSSION [facility] Start: 02-07-2022 End: 04-09-2022 CBC W Auto Differential panel - Blood CBC + DIFF Lab Routine Type 2 diabetes mellitus with complication, without long-term current use of insulin (HCC) Expected: 02/07/2022, Expires: 04/09/2022 [facility] Work Phone: Comment on above: Expected: 02/07/2022 , Expires: 04/09/2022 Start: 02-07-2022 End: 04-09-2022 Comprehensive metabolic 2000 panel - Serum or Plasma COMP METABOLIC PANEL Lab Routine Hyponatremia Expected: 02/07/2022, Expires: 04/09/2022 [facility] Work Phone: Comment on above: Expected: 02/07/2022 , Expires: 04/09/2022 Start: 02-07-2022 End: 04-09-2022 Hemoglobin A1c in Blood HGB A1C Lab Routine Type 2 diabetes mellitus with complication, without long-term current use of insulin (HCC) Expected: 02/07/2022, Expires: 04/09/2022 [facility] Work Phone: Comment on above: Expected: 02/07/2022 , Expires: 04/09/2022 Start: 02-07-2022 End: 04-09-2022 Magnesium [Mass/volume] in Serum or Plasma MAGNESIUM BLD Lab Routine Hypomagnesemia Expected: 02/07/2022, Expires: 04/09/2022 [facility] Work Phone: Comment on above: Expected: 02/07/2022 , Expires: 04/09/2022 Start: 02-07-2022 End: 04-09-2022 Thyrotropin [Units/volume] in Serum or Plasma TSH BLD Lab Routine Subclinical hypothyroidism Expected: 02/07/2022, Expires: 04/09/2022 [facility] Work Phone: Comment on above: Expected: 02/07/2022 , Expires: 04/09/2022 Start: 02-06-2022 Hemoglobin A1c/Hemoglobin.total in Blood HBA1C [facility] Start: 11-24-2021 Hemoglobin A1c/Hemoglobin.total in Blood HBA1C [facility] Start: 11-09-2021 End: 01-09-2022 Basic metabolic 2000 panel - Serum or Plasma BASIC METABOLIC PNL Lab Routine Vitamin B12 deficiency Expected: 11/09/2021, Expires: 01/09/2022 [facility] Work Phone: Comment on above: Expected: 11/09/2021 , Expires: 01/09/2022 Start: 11-09-2021 End: 01-09-2022 CBC W Auto Differential panel - Blood CBC + DIFF Lab Routine Vitamin B12 deficiency Expected: 11/09/2021, Expires: 01/09/2022 [facility] Work Phone: Comment on above: Expected: 11/09/2021 , Expires: 01/09/2022 Start: 11-09-2021 End: 01-09-2022 Magnesium [Mass/volume] in Serum or Plasma MAGNESIUM BLD Lab Routine Vitamin B12 deficiency Expected: 11/09/2021, Expires: 01/09/2022 [facility] Work Phone: Comment on above: Expected: 11/09/2021 , Expires: 01/09/2022 Start: 11-01-2021 Egd balloon dilation esophagus <30 mm diam ESOPH EGD DILATION <30 MM [facility] Work Phone: Start: 11-01-2021 Egd transoral biopsy single/multiple EGD BIOPSY SINGLE/MULTIPLE [facility] Work Phone: Start: 11-01-2021 Patient discharge [facility] Work Phone: Start: 10-26-2021 End: 12-26-2021 Basic metabolic 2000 panel - Serum or Plasma BASIC METABOLIC PNL Lab Routine Vitamin B12 deficiency Anemia, unspecified type Hypomagnesemia Hyponatremia Expected: 10/26/2021, Expires: 12/26/2021 [facility] Work Phone: Comment on above: Expected: 10/26/2021 , Expires: 12/26/2021 Start: 10-26-2021 End: 12-26-2021 CBC W Auto Differential panel - Blood CBC + DIFF Lab Routine Vitamin B12 deficiency Anemia, unspecified type Hypomagnesemia Hyponatremia Expected: 10/26/2021, Expires: 12/26/2021 [facility] Work Phone: Comment on above: Expected: 10/26/2021 , Expires: 12/26/2021 Start: 10-26-2021 End: 12-26-2021 Ferritin [Mass/volume] in Serum or Plasma FERRITIN BLD Lab Routine Vitamin B12 deficiency Anemia, unspecified type Hypomagnesemia Hyponatremia Expected: 10/26/2021, Expires: 12/26/2021 [facility] Work Phone: Comment on above: Expected: 10/26/2021 , Expires: 12/26/2021 Start: 10-26-2021 End: 12-26-2021 Folate [Mass/volume] in Serum or Plasma FOLATE SERUM Lab Routine Vitamin B12 deficiency Anemia, unspecified type Hypomagnesemia Hyponatremia Expected: 10/26/2021, Expires: 12/26/2021 [facility] Work Phone: Comment on above: Expected: 10/26/2021 , Expires: 12/26/2021 Start: 10-26-2021 Influenza vaccination INFLUENZA (#1) [facility] Start: 10-26-2021 End: 12-26-2021 Iron and Iron binding capacity panel - Serum or Plasma IRON + TIBC Lab Routine Vitamin B12 deficiency Anemia, unspecified type Hypomagnesemia Hyponatremia Expected: 10/26/2021, Expires: 12/26/2021 [facility] Work Phone: Comment on above: Expected: 10/26/2021 , Expires: 12/26/2021 Start: 10-26-2021 End: 12-26-2021 Magnesium [Mass/volume] in Serum or Plasma MAGNESIUM BLD Lab Routine Vitamin B12 deficiency Anemia, unspecified type Hypomagnesemia Hyponatremia Expected: 10/26/2021, Expires: 12/26/2021 [facility] Work Phone: Comment on above: Expected: 10/26/2021 , Expires: 12/26/2021 Start: 08-09-2021 End: 10-09-2021 Ferritin [Mass/volume] in Serum or Plasma FERRITIN BLD Lab Routine Anemia, unspecified type Expected: 08/09/2021, Expires: 10/09/2021 [facility] Work Phone: Comment on above: Expected: 08/09/2021 , Expires: 10/09/2021 Start: 08-09-2021 End: 10-09-2021 Folate [Mass/volume] in Serum or Plasma FOLATE SERUM Lab Routine Anemia, unspecified type Expected: 08/09/2021, Expires: 10/09/2021 [facility] Work Phone: Comment on above: Expected: 08/09/2021 , Expires: 10/09/2021 Start: 08-09-2021 End: 10-09-2021 Iron and Iron binding capacity panel - Serum or Plasma IRON + TIBC Lab Routine Anemia, unspecified type Expected: 08/09/2021, Expires: 10/09/2021 [facility] Work Phone: Comment on above: Expected: 08/09/2021 , Expires: 10/09/2021 Start: 08-04-2021 End: 10-04-2021 ALBUMIN/CREAT RATIO RND UR ALBUMIN/CREAT RATIO RND UR Lab Routine Type 2 diabetes mellitus with complication, without long-term current use of insulin (HCC) Expected: 08/04/2021, Expires: 10/04/2021 [facility] Work Phone: Comment on above: Expected: 08/04/2021 , Expires: 10/04/2021 Start: 08-04-2021 End: 08-04-2022 CBC W Auto Differential panel - Blood CBC + DIFF Lab Routine Type 2 diabetes mellitus with complication, without long-term current use of insulin (HCC) Expected: 08/04/2021, Expires: 08/04/2022 [facility] Work Phone: Comment on above: Expected: 08/04/2021 , Expires: 08/04/2022 Start: 08-04-2021 End: 08-04-2022 Comprehensive metabolic 2000 panel - Serum or Plasma COMP METABOLIC PANEL Lab Routine Type 2 diabetes mellitus with complication, without long-term current use of insulin (HCC) Expected: 08/04/2021, Expires: 08/04/2022 [facility] Work Phone: Comment on above: Expected: 08/04/2021 , Expires: 08/04/2022 Start: 08-04-2021 End: 10-04-2021 Hemoglobin A1c in Blood HGB A1C Lab Routine Type 2 diabetes mellitus with complication, without long-term current use of insulin (HCC) Expected: 08/04/2021, Expires: 10/04/2021 [facility] Work Phone: Comment on above: Expected: 08/04/2021 , Expires: 10/04/2021 Start: 08-04-2021 End: 08-04-2022 Lipid 1996 panel - Serum or Plasma LIPID PANEL BASIC Lab Routine Hyperlipidemia, mixed Expected: 08/04/2021, Expires: 08/04/2022 [facility] Work Phone: Comment on above: Expected: 08/04/2021 , Expires: 08/04/2022 Start: 08-04-2021 End: 10-04-2021 Magnesium [Mass/volume] in Serum or Plasma MAGNESIUM BLD Lab Routine Hypomagnesemia Expected: 08/04/2021, Expires: 10/04/2021 [facility] Work Phone: Comment on above: Expected: 08/04/2021 , Expires: 10/04/2021 Start: 08-04-2021 End: 10-04-2021 TOX SCREEN ROUT UR TOX SCREEN ROUT UR Lab Routine Medication monitoring encounter Expected: 08/04/2021, Expires: 10/04/2021 [facility] Work Phone: Comment on above: Expected: 08/04/2021 , Expires: 10/04/2021 Start: 08-03-2021 COVID-19 VACCINE (5 - Booster for Moderna series) COVID-19 VACCINE (5 - Booster for Moderna series) [facility] Start: 04-23-2021 COVID-19 VACCINE (4 - Booster for Moderna series) COVID-19 VACCINE (4 - Booster for Moderna series) [facility] Start: 02-25-2021 ADVANCE DIRECTIVE DISCUSSION ADVANCE DIRECTIVE DISCUSSION [facility] Start: 10-11-2020 Hepatitis C antibody , confirmatory test DILATED RETINAL EXAM [facility] Start: 02-03-2014 SHINGRIX VACCINE (2 of 3) SHINGRIX VACCINE (2 of 3) [facility] Start: 2010 RSV Vaccine (1 - 1-d ose 75+ series) RSV Vaccine (1 - 1-dose 75+ series) [facility] Start: 02-25-2007 PNEUMOCOCCAL: 65+ (2 - PCV) PNEUMOCOCCAL: 65+ (2 - PCV) [facility] Patient referral [facility] Work Phone: PT PLAN OF CARE CERTIFICATION PT PLAN OF CARE CERTIFICATION Procedures Routine Primary osteoarthritis of both knees Chronic thoracic back pain, unspecified back pain laterality Generalized weakness Ordered: 12/06/2021 [facility] Work Phone: Comment on above: Ordered: 12/06/2021 End: 10-15-2022 Radiologic exam esophagus single contrast study XR ESOPHAGRAM Radiology Routine Dysphagia, unspecified type 1 Occurrences starting 09/15/2021 until 10/15/2022 [facility] Work Phone: Comment on above: 1 Occurrences starti ng 09/15/2021 until 10/15/2022 End: 06-07-2023 US CAROTID ARTERIES JOSSELINE VAS LAB US CAROTID ARTERIES JOSSELINE VAS LAB Vascular Lab Routine Bilateral carotid artery stenosis 1 Occurrences starting 06/06/2022 until 06/07/2023 [facility] Work Phone: Comment on above: 1 Occurrences starti ng 06/06/2022 until 06/07/2023 [facility] Immunizations Immunization Date Immunization Notes Care Provider [facility] [facility] 12-23-2023 influenza virus vacc ine, unspecified formulation Shaquille Benjamin MD Work Phone: [facility] 05-21-2023 COVID-19 vaccine, ag e 12+ yr, 2022- season ([employer]) Shaquille Benjamin MD Work Phone: [facility] 11-07-2022 influenza (HD-IIV4) vaccine, age 65+ yr, high dose, quadrivalent, PF (FLUZONE HIGH-DOSE) Shaquille Benjamin MD Work Phone: [facility] 11-07-2022 influenza virus vacc ine, unspecified formulation Shaquille Benjamin MD Work Phone: [facility] 03-07-2022 pneumococcal Conjuga te, unspecified formulation Shaquille Benjamin MD Work Phone: [facility] Work Phone: 03-07-2022 pneumococcal (PCV20) vaccine, 20 valent (PREVNAR 20) Shaquille Benjamin MD Work Phone: [facility] 12-15-2021 influenza, high dose seasonal, preservative-free Shaquille Benjamin MD Work Phone: [facility] 06-08-2021 COVID-19 original vaccine, full dose, monovalent (MODERNA) Shaquille Benjamin MD Work Phone: [facility] 12-21-2020 COVID-19 original vaccine, full dose, monovalent (MODERNA) Shaquille Benjamin MD Work Phone: [facility] 11-03-2020 influenza, high-dose , quadrivalent vaccine (FLUZONE HIGH DOSE QUADRIVALENT) Shaquille Benjamin MD Work Phone: [facility] 04-15-2020 COVID-19 vaccine, fu ll dose (MODERNA) Shaquille Benjamin MD Work Phone: [facility] 03-18-2020 COVID-19 vaccine, fu ll dose (MODERNA) Shaquille Benjamin MD Work Phone: [facility] 11-11-2019 influenza, high-dose , quadrivalent vaccine (FLUZONE HIGH DOSE QUADRIVALENT) Shaquille Benjamin MD Work Phone: [facility] 12-15-2018 influenza, high dose seasonal, preservative-free Shaquille Benjamin MD Work Phone: [facility] 11-04-2018 tetanus toxoid, redu carl diphtheria toxoid, and acellular pertussis vaccine, adsorbed Shaquille Benjamin MD Work Phone: [facility] 12-04-2017 influenza, high dose seasonal, preservative-free Shaquille Benjamin MD Work Phone: [facility] 12-09-2013 zoster vaccine, live Shaquille Benjamin MD Work Phone: [facility] 02-25-2006 pneumococcal polysaccharide vaccine, 23 valent Shaquille Benjamin MD Work Phone: [facility] Payers Date Payer Category Payer Self-pay [id number] 2019 [facility] ANTHEM ME DICARE SUPPLEMENT [id number] 2019 Unknown ANTHEM ANTHEM ME DICARE SUPPLEMENT [id number] 2019-Present [phone] [id number] [place], [place] [address] Indemnity [id number] 2019 Unknown ANTHEM ANTHEM ME DICARE SUPPLEMENT [id number] 2019-Present [id number] [place], [place] [address] Indemnity [id number] 2019 Unknown [id number] 2000 Medicare MEDICARE MEDICAR E A AND B [id number] 2000-Present [phone] [place] [address] Medicare [id number] [id number] 2000 Medicare [id number]. 1.13.159. 2.7.3.690318.315 2000 Medicare [id number] 1935 Unknown [id number] 2.16.840.1.352313.3.579. 2.627 Unknown [id number] 2.16.840.1.248523.3.579. 2.462 Unknown [id number] 2.16.840.1.405956.3.579. 2.462 Unknown [id number] 2.16.840.1.493575.3.579. 2.462 Unknown [id number] 2.16.840.1.771021.3.579. 2.462 Unknown [id number] 2.16.840.1.615441.3.579. 2.462 Unknown [id number] 2.16.840.1.359528.3.579. 2.462 Unknown [id number] 2.16.840.1.287224.3.579. 2.462 Unknown [id number] 2..840.1.263204.3.579. 2.462 Unknown [id number] 2..840.1.264484.3.579. 2.462 Unknown [id number] 2..840.1.465481.3.579. 2.462 Unknown [id number] 2.16.840.1.964602.3.579. 2.462 Unknown [id number] 2.16.840.1.726538.3.579. 2.462 Unknown [id number] 2.16.840.1.063409.3.579. 2.462 Unknown [id number] 2.16.840.1.493472.3.579. 2.462 Unknown [id number] 2.16.840.1.820685.3.579. 2.462 Unknown [id number] 2.16.840.1.843675.3.579. 2.462 Unknown [id number] 2.16.840.1.036548.3.579. 2.462 Unknown [id number] 2.16.840.1.222586.3.579. 2.462 Unknown [id number] 2.16.840.1.660724.3.579. 2.462 Unknown [id number] 2.16.840.1.005443.3.579. 2.462 Unknown [id number] 2.16.840.1.000438.3.579. 2.462 Unknown [id number] 2.16.840.1.522298.3.579. 2.462 Unknown [id number] 2.16.840.1.204167.3.579. 2.462 Unknown [id number] 2.16.840.1.635681.3.579. 2.462 Unknown [id number] 2.16.840.1.929154.3.579. 2.462 Unknown [id number] 2.16.840.1.011823.3.579. 2.462 Unknown [id number] 2.16.840.1.093808.3.579. 2.462 Social History Date Type Detail Facility Start: 10-14-2017 End: 04-16-2024 Tobacco smoking status NHIS Never smoked tobacco [facility] Start: 10-14-2017 End: 11-08-2021 Tobacco use and exposure Smokeless tobacco non-user [facility] Start: 05-11-2021 End: 01-29-2024 Alcohol intake Current drinker of alcohol (finding) [facility] Start: 03-14-2020 End: 03-05-2022 History SDOH Alcohol Frequency 1 [facility] Start: 10-14-2017 History SDOH Alcohol Comment occasionally [facility] Start: 03-14-2020 End: 03-05-2022 History SDOH Social Connections Phone 5 [facility] Start: 03-14-2020 End: 03-05-2022 History SDOH Social Connections Membership 2 [facility] Start: 03-14-2020 End: 03-05-2022 History SDOH Social Connections Living 4 [facility] Start: 03-14-2020 End: 03-05-2022 History SDOH Physical Activity DPW 0 [facility] Start: 03-14-2020 Education 11 [facility] Start: 1935 Sex Assigned At Not on file [facility] Start: 07-30-2021 End: 11-08-2021 Exposure to SARS-CoV-2 (event) Not sure [facility] Start: 03-23-2021 End: 10-25-2021 Tobacco smoking status NHIS Unknown if ever smoked [facility] Work Phone: Start: 1935 Sex Assigned At Female [facility] Start: 03-05-2022 End: 11-07-2022 History of Social function [facility] Start: 03-05-2022 End: 11-07-2022 Social connection and isolation panel [facility] Do you belong to any clubs or organizations such as pentecostalism groups, unions, fraternal or athletic groups, or school groups? No [facility] Are you now , , , , never or living with a partner? [facility] How often to you hav e a drink containing alcohol? Never [facility] How many standard dr inks containing alcohol do you have on a typical day? Patient does not drink [facility] Do you feel stress - tense, restless, nervous, or anxious, or unable to sleep at night because your mind is troubled all the time - these days [OSQ] Not at all [facility] (I/We) worried whelukas er (my/our) food would run out before (I/we) got money to buy more. Never true [facility] Medical Equipment Procedure Code Equipment Code Equipment Original Text Equipment Identifier Dates [id number], [id number] Start: 01-16-2019 End: 08-24-2021 Comment on above: Test blood sugar(s) 1 times daily. Dx: Type 2 DM - Controlled E11.9 Insulin: No Test blood sugar(s) 1 times daily. Dx: Type 2 DM - E11.8 Insulin: No Goals Date Patient Goal Desired Activity /State Mental Status Date Assessment Result Facility 11-01-2021 Cognitive function Voice/Name [facility] Work Phone: Clinical Notes 06-22-2021 to 06-22-2024 Kiara Monet MA - 06/22/2024 10:12 AM Loraine Fragoso RN - 05/22/2024 11:34 AM Kiara Tello MA - 05/20/2024 7:56 AM Loraine Fragoso RN - 05/01/2024 2:05 PM EST Note Date & Type Note Facility 06-22-2024 Note HNO ID: [id number] Author: KIARA MONET MA Service: ? Author Type: Siding Stapler Type: Progress Notes Filed: 06/22/2024 16:22 Note Text: POPULATION HEALTH NAVIGATION OUTREACH Action/FYI Spoke to Rula Hanna 's daughter .Lives at [facility]. She uses the house doctor. Due (Y [...] Monet MA June 22, 2024 10:13 AM [facility] 06-22-2024 History of Present illness Narrative POPULATION HEALTH NAVIGATION OUTREACH Action/FYI Spoke to Rula Hanna 's daughter .Lives at [facility]. She uses the house doctor. Due (Y [...] 2024 10:13 AM documented in this encounter [facility] 06-22-2024 Note Patient Outreach ([facility]) CYNDI MEJIA ([id number]) 1935 F Date Time Provider Department 06/22/24 KIARA MONET During your visit today, we recorded the following information about you: Kiara Monet MA 06/22/2024 4:22 PM Signed POPULATION HEALTH NAVIGATION OUTREACH Action/FYI Spoke to Rula Hanna 's daughter .Lives at [facility]. She uses the [facility] doctor. Due (Y or N) Comments y [...] Encounter Status:Closed by KIARA MONET on 06/22/24 [facility] 05-22-2024 Note HNO ID: [id number] Author: LORAINE PATTERSON RN Service: ? Author Type: Registered Nurse Type: Progress Notes Filed: 05/22/2024 12:21 Note Text: [facility] Telephonic Outreach Provider Action/FYI Patient identified by Name and Date of . Discussed care with Cfhdnfda-np-hby, Rula. Patient out of rehab AND in LTC Rula asked PCC to remove [phone] from chart Rula stated patient will be [...] Patterson RN May 22, 2024 11:34 AM [facility] 05-22-2024 History of Present illness Narrative Images from the original note were not included. [facility] Telephonic Outreach Provider Action/FYI Patient identified by Name and Date of . Discussed care with Rrtottsr-yv-nrz, Rula. Patient out of rehab & in LTC Rula asked PCC to remove [phone] from chart Rula stated patient will be [...] 2024 11:34 AM documented in this encounter [facility] 05-22-2024 Note Patient Outreach (AM [facility]) CNYDI MEJIA ([id number]) 1935 F Date Time Provider Department 05/22/24 LORAINE PATTERSON AMBG During your visit today, we recorded the following information about you: Loraine Patterson RN 05/22/2024 12:21 PM Signed [facility] Telephonic Outreach Provider Action/FYI Patient identified by Name and Date of . Discussed care with Adoisplg-bm-krc, Rula. Patient out of rehab AND in LTC Rula asked PCC to remove [phone] from chart Rula stated patient will be [...] 09/25/2022 Diagnosed: 0 (more content not included)... [facility] 05-20-2024 Note HNO ID: [id number] Author: KIARA MONET MA Service: ? Author Type: Siding Stapler Type: Progress Notes Filed: 05/20/2024 16:13 Note [...] Monet MA May 20, 2024 7:56 AM [facility] 05-20-2024 History of Present illness Narrative POPULATION HEALTH NAVIGATION OUTREACH Action/FYI NO ANSWER Local [employer] Launch[employer] MESSAGE SENT Topic Due (Y or N) [...] to reach patient: Unable to leave message GivUhart message sent HCC related Navigation Signature: Kiara Monet MA May 20, 2024 7:56 AM documented in this encounter [facility] 05-20-2024 Note Patient Outreach ([facility]) CYNDI MEJIA ([id number]) 1935 F Date Time Provider Department 05/20/24 KIARA OMNET During your visit today, we recorded the following information about you: Kiara Monet MA 05/20/2024 4:13 PM Signed POPULATION HEALTH NAVIGATION OUTREACH Action/FYI NO ANSWER Local [employer] Launch[employer] MESSAGE SENT Topic Due (Y or N) [...] Health Navigation Outreach [3910] Cmt: CLINT SANCHEZ Prescriptions as of 05/20/2024 - losartan (COZAAR) [...] Encounter Status:Closed by KIARA MONET on 05/20/24 [facility] 05-04-2024 Note HNO ID: [id number] Author: JEFFERSON NG, ? Service: ? Author Type: Siding Stapler Type: Progress Notes Filed: 05/04/2024 11:10 Note Text: PAC TCM OUTREACH DOCUMENTION [facility] FACILITY (SNF) TRANSITIONAL CARE MANAGEMENT (TCM) POST-ACUTE CARE (PAC) PROGRAM LOS Lace Finisher Outreach PAC Transition Navigator Action/FYI: Diabetes Program Details Post Acute Care Status: Enrolled Effective Dates: 05/04/2024 - present Responsible Staff: POST-ACUTE CARE ACO NAVIGATION Support and Services:Post-SNF Transition Support PAC Transition Navigator Handoff Hospitalization Reason for hospitalization: mechanical fall, closed fracture of proximal end of right humerus, Senior Care Facility Summary SNF Stay Summary: LOSF did [...] Patient has been recently discharged from a [facility] facility. Hospitalization Details Hospital discharged from: -- ([facility] ([facility])) Hospital admission date: 04/16/24 Hospital discharge date: 04/19/24 Senior Care Facility Details Non-Network Facilities: -- ([facility] ) SNF admission date: 04/16/24 SNF discharge date: 05/01/24 SNF Target Skilled LOS: 18 SNF Actual Skilled LOS: 12 Follow-up appts: PAC Transition Navigator, please contact patient for PAC TCM Outreach and continuity of care. [facility] 05-01-2024 Note HNO ID: [id number] Author: LORAINE PATTERSON RN Service: ? Author Type: Registered Nurse Type: Progress Notes Filed: 05/01/2024 14:15 Note Text: [facility] Telephonic Outreach Provider Action/BUZZI Patient identified by Name and Date of . 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 Patient fell about 2 weeks ago while washing feet on edge of bed -Feet did not touch ground AND fell AND broke right humeral head Currently at [facility] SNF Program Details Chronic Disease Management [...] Patterson RN May 01, 2024 2:05 PM [facility] 05-01-2024 History of Present illness Narrative Images from the original note were not included. [facility] Care Path Telephonic Outreach Provider Action/FYI Patient identified by Name and Date of . 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 Patient fell about 2 weeks ago while washing feet on edge of bed -Feet did not touch ground & fell & broke right humeral head Currently at [facility] SNF Program Details Chronic Disease Management [...] 2024 2:05 PM documented in this encounter [facility] 05-01-2024 Note Patient Outreach [place] [facility] CYNDI MEJIA ([id number]) 1935 F Date Time Provider Department 05/01/24 LORAINE PATTERSON During your visit today, we recorded the following information about you: Loraine Patterson RN 05/01/2024 2:15 PM Signed [facility] Care Path Telephonic Outreach Provider Action/ Patient identified by Name and Date of . 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 Patient fell about 2 weeks ago while washing feet on edge of bed -Feet did not touch ground AND fell AND broke right humeral head Currently at [facility] Program Details Chronic Disease Management Status: Paused [...] 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] (more content not included)... [facility] 04-19-2024 Note [facility] Medical Records Department [address] [place] [address] Discharge Summary 04/19/24 0942 MR#: [id number] Acct: [id number] Name: CYNDI MEJIA Rep #: [id number] : 1935 89 From: Simon Mcfarland DO PCP: Dr. Shaquille Benjamin MD Status:DIS IN Location: [facility] [id number] Providers Date of Admission: 04/16/24 Date of [...] Patient is an 89-year-old female who presented [facility] ED on 04/16/2024 with right arm pain after a fall. Short hospital course as noted below. Discharged to SNF in stable condition on 04/19. 1. Acute on chronic debility secondary to right humerus fracture after mechanical fall ??? PT/OT/case management followed. Patient lives in assisted living at [facility]. Had a fall on the day of admission with subsequent right arm pain. Right shoulder x-ray showed acute displaced right humeral neck fracture. Per orthopedics, no need for surgical intervention, okay for conservative management with placement in sling. Pain control with scheduled Tylenol and oxycodone as needed. Medically stable for discharge on 04[facility]18[facility] 2. Hyponatremia, stable ??? Sodium [...] ROM Extremity Extremity (more content not included)... [facility] 04-08-2024 Note HNO ID: [id number] Author: CARISSA LARSON RN Service: ? Author [...] - Bi-Weekly Outreach (Recurring) Disposition Based on patient financial services specialist, the following disposition is advised: No action needed Carissa Larson RN April 08, 2024 2:53 PM [facility] 04-08-2024 History of Present illness Narrative Images [...] - Bi-Weekly Outreach (Recurring) Disposition Based on patient financial services specialist, the following disposition is advised: No action needed Carissa Larson RN April 08, 2024 2:53 PM documented in this encounter [facility] 04-08-2024 Note Patient Outreach (AM [facility]) CYNDI MEJIA ([id number]) 1935 F Date Time Provider Department 04/08/24 CARISSA LARSON During your visit today, we recorded the following information about you: Carissa Larson RN 04/08/2024 2:55 PM Signed [facility] Care Path Telephonic Outreach Provider Action/FYI Patient [...] - Bi-Weekly Outreach (Recurring) Disposition Based on patient financial services specialist, the following disposition is advised: No action [...] of cardiovascular disorder (more content not included)... [facility] 03-25-2024 Note HNO ID: [id number] Author: LORAINE PATTERSON RN Service: ? 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) Loraine Patterson RN March 25, 2024 1:10 PM [facility] 03-25-2024 History of Present illness Narrative CDM [...] Dressing: Yes Bathing: Yes Doing laundry: No ([facility]) Climbing a flight of stairs: No Walking [...] were you homeless or living in a [place] facility (including now)?: No Transportation Needs In the [...] Biannual PCP visit addressed Disposition Based on patient financial services specialist, the following disposition is advised: No action needed (States avuoszds-ag-ebw 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) Loraine Patterson RN March 25, 2024 1:10 PM documented in this encounter [facility] 03-25-2024 Note Patient Outreach ([place] [facility] CYNDI MEJIA ([id number]) 1935 F Date Time Provider Department 03/25/24 [...] Dressing: Yes Bathing: Yes Doing laundry: No ([facility]) Climbing a flight of stairs: No Walking [...] were you homeless or living in a [place] facility (including now)?: No Transportation Needs In the [...] Biannual PCP visit addressed Disposition Based on patient financial services specialist, the following disposition is advised: No action needed (States doiihjmj-wq-qtr 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 [facility] 03-16-2024 Telephone encounter Note Prescription Refill Information [...] Lane LPN March 16, 2024 8:28 AM [facility] 03-16-2024 Miscellaneous Notes Prescription Refill Information The [...] 2024 8:28 AM documented in this encounter [facility] 02-27-2024 Telephone encounter Note Prescription Refill Information [...] Badillo LPN February 27, 2024 1:54 PM [facility] 02-27-2024 Miscellaneous Notes Prescription Refill Information The [...] 2024 1:54 PM documented in this encounter [facility] 02-27-2024 Note [facility] Medical Records Department [address] [place] [address] History Physical Exam 02/27/24 0700 MR#: [id number] Acct: [id number] Name: CYNDI MEJIA Rep #: [id number] : 1935 89 From: Lg Friend PCP: Dr. Shaquille Benjamin MD Status:[facility] Location: [place] [address] HPI - General General Date of Admission: [...] EGD [address] Gonzalez at [facility]. Lots of foam then; acid has [...] Congestive heart failure Atherosclerotic heart disease of [place] coronary artery without angina pectoris Essential hypertension [...] Pain 04/13/19 Unknown History 325 mg tablet (Saline) levothyroxine 25 mcg tablet 25 mcg PO [...] flatus, fecal incon (more content not included)... [facility] 01-29-2024 Note HNO ID: [id number] Author: SHAQUILLE BENJAMIN MD Service: ? Author [...] Abs Lymph 1.00 - 4.00 k/uL 1.09 [place]% % 7.3 Abs [place] <0.87 k/uL 0.47 Eosin% % 2.5 Abs [...] tablet by mout (more content not included)... [facility] 01-29-2024 History of Present illness Narrative Patient [...] Abs Lymph 1.00 - 4.00 k/uL 1.09 [place]% % 7.3 Abs [place] <0.87 k/uL 0.47 Eosin% % 2.5 Abs [...] - MAGNESIUM 2. Coronary artery disease involving [place] heart without angina pectoris, unspecified vessel or [...] Shaquille Benjamin MD documented in this encounter [facility] 12-30-2023 Telephone encounter Note Shalini with [facility] calls to request copy of PT order and notes from visit on 12/24/2023. Faxed per request to [phone] Shawn Dalton RN [facility] 12-30-2023 Miscellaneous Notes Shalini with [facility] calls to request copy of PT order and notes from visit on 12/24/2023. Faxed per request to [phone] Shawn Dalton RN documented in this encounter [facility] 12-24-2023 History of Present illness Narrative Patient [...] visit. Either the patient or their legal insurance claim representative has been informed of the risks [...] now has a lfit chair as well. Lori has felt she would benefit from in [...] order that was suggested by staff at [facility]. MEDICATIONS: Current Outpatient Medications Medication Sig celecoxib [...] (coronary artery disease) Congestive heart failure (CHF) ([facility]) Diabetic retinopathy ([facility]) Diverticulitis Esophageal stenosis GERD (gastroesophageal reflux disease) Hemorrhoids HTN (hypertension) Hyperlipidemia Low magnesium level Polyneuropathy in diabetes ([facility]) Sleep apnea SSS (sick sinus syndrome) ([facility]) Type 2 diabetes mellitus ([facility]) Zenker's diverticulum PAST SURGICAL HISTORY [...] with more than 50% of the total tiel-ml-rmtq time of the visit in counseling / coordination of care. documented in this encounter [facility] 12-24-2023 Note HNO ID: [id number] Author: SHAQUILLE BENJAMIN MD Service: ? Author [...] visit. Either the patient or their legal insurance claim representative has been informed of the risks [...] now has a lfit chair as well. [facility] has felt she would benefit from in [...] order that was suggested by staff at [facility]. MEDICATIONS: Current Outpatient Medications Medication Sig celecoxib [...] ring, hiatal hernia, non-bleeding gastropathy [facility] INJ N/A 11/01/2021 OTHER 1958 patent ductus repair OTHER 2008 aorta repair OTHER retinal repair No family h (more content not included)... [facility] 12-05-2023 Note HNO ID: [id number] Author: JACOB MORRIS, [place] ATTENDANT.BEHAVIORAL INSTRUCTOR Service: ? Author Type: Nurse Practitioner Type: Progress Notes Filed: 12/05/2023 13:25 Note Text: This note was created using Max-Viz. Subjective Cyndi Mejia is a 88 year [...] in her extremities. She is currently taking Saline for pain. Review of Systems As noted [...] - PREDNISONE 20 MG TABLET Jacob Morris APRN.[facility] 12-05-2023 History of Present illness Narrative This note was created using Max-Viz. Subjective Cyndi Mejia is a 88 year [...] in her extremities. She is currently taking Saline for pain. Review of Systems As noted [...] Jacob Morris APRN.CNP documented in this encounter [facility] 12-02-2023 Telephone encounter Note The following approved medication requests have been transmitted electronically. Requested Prescriptions Pending Prescriptions Disp Refills citalopram (CELEXA) 20 mg tablet 90 tablet 1 Sig: Take 1 tablet by mouth once daily. metFORMIN ER (GLUCOPHAGE XR) 500 mg 24 hr tablet 90 tablet 1 Sig: Take 1 tablet by mouth daily with breakfast. Estefani Hector APRN.CNP [facility] 12-02-2023 Miscellaneous Notes The following approved medication [...] 2023 8:22 AM documented in this encounter [facility] 12-02-2023 Telephone encounter Note Prescription Refill Information [...] Smith LPN December 02, 2023 8:22 AM [facility] 11-29-2023 Telephone encounter Note Prescription Refill Information [...] Smith LPN November 29, 2023 1:30 PM [facility] 11-29-2023 Miscellaneous Notes Prescription Refill Information The [...] 2023 1:30 PM documented in this encounter [facility] 11-11-2023 Telephone encounter Note Prescription Refill Information [...] Badillo LPN November 11, 2023 11:34 AM [facility] 11-11-2023 Miscellaneous Notes Prescription Refill Information The [...] 2023 11:34 AM documented in this encounter [facility] 10-29-2023 Jocelyn Dudley - 10/29/2023 3:21 PM [...] (or decreased sensation in your feet) a campaign consultant should always cut your toenails. Be Careful [...] Go to your health care provider or campaign consultant to treat these conditions. documented in this encounter [facility] 10-29-2023 Note HNO ID: [id number] Author: JOCELYN BROTHERS, ? Service: ? Author [...] disease) No date: Congestive heart failure (CHF) ([facility]) No date: Diabetic retinopathy ([facility]) No date: Diverticulitis No date: Esophageal stenosis No date: GERD (gastroesophageal reflux disease) No date: Hemorrhoids No date: HTN (hypertension) No date: Hyperlipidemia No date: Low magnesium level No date: Polyneuropathy in diabetes ([facility]) No date: Sleep apnea No date: SSS (sick sinus syndrome) ([facility]) No date: Type 2 diabetes mellitus ([facility]) No date: Zenker's diverticulum Current [...] pedis and po (more content not included)... [facility] 10-29-2023 History of Present illness Narrative Initial [...] disease) No date: Congestive heart failure (CHF) ([facility]) No date: Diabetic retinopathy ([facility]) No date: Diverticulitis No date: Esophageal stenosis No date: GERD (gastroesophageal reflux disease) No date: Hemorrhoids No date: HTN (hypertension) No date: Hyperlipidemia No date: Low magnesium level No date: Polyneuropathy in diabetes ([facility]) No date: Sleep apnea No date: SSS (sick sinus syndrome) ([facility]) No date: Type 2 diabetes mellitus ([facility]) No date: Zenker's diverticulum Current [...] without long-term current use of insulin (HCC) (primary encounter diagnosis) (B35.1) Onychomycosis (R09.89) Diminished [...] time. Jocelyn Brothers DPM Podiatry [address] [facility] [address] Dept: [phone] Dept Patient presents with: Left Foot - New, Nail Check, Diabetic Foot Check Right Foot - New, Nail Check, Diabetic Foot Check Patient presents as referral from Dr. Benjamin's office for diabetic foot exam and Onychomycosis. Patient's toenails are long, thick and discolored. Denies any foot pain. States that she is a diabetic and has difficulty trimming her toenails. documented in this encounter [facility] 10-29-2023 Note HNO ID: [id number] Author: LAURA ECHEVARRIA RN Service: ? Author [...] diabetic and has difficulty trimming her toenails. [facility] 10-29-2023 Telephone encounter Note Prescription Refill Information [...] Hyman LPN October 29, 2023 11:03 AM [facility] 10-29-2023 Miscellaneous Notes Prescription Refill Information The [...] 2023 11:03 AM documented in this encounter [facility] 09-26-2023 Telephone encounter Note Patient informed and verbalized understanding. Yes, she is taking the magnesium. Advised her to come in in the next few weeks to check level. Em Aly MA [facility] 09-26-2023 Miscellaneous Notes Patient informed and verbalized [...] a few weeks. documented in this encounter [facility] 09-26-2023 Telephone encounter Note Labs are all stable. I think Rula Mejia, her daughter in law was going to try and have her take a new type of mag. See if she is starting to take it. If so, can recheck mag in a few weeks. [facility] 09-25-2023 Telephone encounter Note Done. [facility] 09-25-2023 Miscellaneous Notes Done. Let them know KATHY Mejia called back to report she spoke to pt & pt does not want to pursue this test, order can be canceled. Zoila Parada LPN [place] sends fax asking for ST order with hx of dysphagia. Left message for Rula daughter in law to contact office back. Do they feel this is something that should be done or not? documented in this encounter [facility] 09-25-2023 Telephone encounter Note Let them know [facility] 09-25-2023 Telephone encounter Note KATHY Mejia called back to report she spoke to pt & pt does not want to pursue this test, order can be canceled. Zoila Parada LPN [facility] 09-23-2023 Telephone encounter Note Lori sends fax asking for ST order with hx of dysphagia. Left message for Rula daughter in law to contact office back. Do they feel this is something that should be done or not? [facility] 09-20-2023 History of Present illness Narrative Patient [...] Will be seeing a new cardiology in [facility]. MEDICATIONS: Current Outpatient Medications Medication [...] Shaquille Benjamin MD documented in this encounter [facility] 09-20-2023 Note HNO ID: [id number] Author: SHAQUILLE BENJAMIN MD Service: ? Author [...] 25 mg daily Nebivolol 5 mg daily [place] nurse checks BP occ. Stable. Denies chest [...] Will be seeing a new cardiology in [facility]. MEDICATIONS: Current Outpatient Medications Medication [...] aorta repair OT (more content not included)... [facility] 09-16-2023 Telephone encounter Note Patient GivUhart message requesting the following refill Refill(s) Requested: [...] be escript to pharmacy. Terri Holland LPN [facility] 09-16-2023 Miscellaneous Notes Patient MyChart message requesting the following refill Refill(s) Requested: [...] Terri Holland LPN documented in this encounter [facility] 08-27-2023 Telephone encounter Note Prescription Refill Information [...] Lane LPN August 27, 2023 11:46 AM [facility] 08-27-2023 Miscellaneous Notes Prescription Refill Information The [...] 2023 11:46 AM documented in this encounter [facility] 08-05-2023 Telephone encounter Note Prescription Refill Information [...] Calvillo MA August 05, 2023 4:28 PM [facility] 08-05-2023 Miscellaneous Notes Prescription Refill Information The [...] 2023 4:28 PM documented in this encounter [facility] 06-10-2023 Miscellaneous Notes Patient MyChart message requesting the following refill Refill(s) Requested: [...] Terri Holland LPN documented in this encounter [facility] 06-03-2023 Miscellaneous Notes Patient has been identified [...] Ronnie Hyman LPN. documented in this encounter [facility] 05-21-2023 History of Present illness Narrative Patient presents with: Follow Up HPI: Patient presents today for office visit for 3 month follow up. HLD: Current medication: Atorvastatin 20 mg daily No myalgias HTN: Current medications: Losartan 25 mg daily Nebivolol 5 mg daily [place] nurse checks BP occ. Stable. Denies chest [...] Will be seeing a new cardiology in [facility]. MEDICATIONS: Current Outpatient Medications Medication [...] (coronary artery disease) Congestive heart failure (CHF) ([facility]) Diabetic retinopathy ([facility]) Diverticulitis Esophageal stenosis GERD (gastroesophageal reflux disease) Hemorrhoids HTN (hypertension) Hyperlipidemia Low magnesium level Polyneuropathy in diabetes (HCC) Sleep apnea SSS (sick sinus syndrome) ([facility]) Type 2 diabetes mellitus (HCC) [...] PANEL, NONFASTING 2. Coronary artery disease involving [place] heart without angina pectoris, unspecified vessel or [...] vaccination - ICD9: V05.9, ICD10: Z23 - [employer] of [employer] COVID-19 VACCINE (2022- SEASON) AGE 12+ YR Shaquille Benjamin MD documented in this encounter [facility] 11-07-2022 History of Past i llness Narrative Problem Noted Date Diagnosed Date Resolved Date Fall 11/07/2022 11/07/2022 11/07/2022 Lesion of esophagus 11/07/2022 11/07/2022 11/08/19 23 Generalized weakness 12/06/2021 022 Mass of neck 11/08/2021 11/07/2022 11/07/2022 Risk for falls 01/30/2018 03/07/2022 documented as of this encounter (statuses as of 11/08/2022) [facility] History of Past illness Narrative* Problem Noted Date Diagnosed Date Resolved Date Closed head injury 11/07/2022 11/07/2022 Fall 11/07/2022 11/07/2022 11/07/2022 Lesion of esophagus 11/07/2022 11/07/2022 11/08/19 23 Generalized weakness 12/06/2021 022 Mass of neck 11/08/2021 11/07/2022 11/07/2022 Risk for falls 01/30/2018 03/07/2022 documented as of this encounter (statuses as of 05/22/2023) [facility] History of Past illness Narrative* Problem Noted Date Diagnosed Date Resolved Date Closed head injury 11/07/2022 11/07/2022 Fall 11/07/2022 11/07/2022 11/07/2022 Lesion of esophagus 11/07/2022 11/07/2022 11/08/19 23 Generalized weakness 12/06/202101/17/2 022 Mass of neck 11/08/2021 11/07/2022 11/07/2022 Risk for falls 01/30/2018 03/07/2022 documented as of this encounter (statuses as of 06/03/2023) [facility] of Past illness Narrative* Problem Noted Date Diagnosed Date Resolved Date Closed head injury 11/07/2022 11/07/2022 Fall 11/07/2022 11/07/2022 11/07/2022 Lesion of esophagus 11/07/2022 11/07/2022 11/08/19 23 Generalized weakness 12/06/202101/17/2 022 Mass of neck 11/08/2021 11/07/2022 11/07/2022 Risk for falls 01/30/2018 03/07/2022 documented as of this encounter (statuses as of 06/11/2023) [facility] History of Present illness Narrative* Shaquille Benjamin MD - 11/07/2022 1:52 PM EDT Patient presents with: Follow Up HPI: Patient presents today for office visit for follow up. No concerns today. Overall feeling well. HTN: Currently taking Nebivolol 2.5 mg along with Losartan 25 mg a day. Living in [place]. Nurses check occ. Approx weekly Denies chest [...] patch back in July. No results from [facility]. Last seen in May. Ambulates [...] Normal ASSESSMENT/PLAN: 1. Coronary artery disease involving [place] heart without angina pectoris, unspecified vessel or [...] three months and prn. [facility] Miscellaneous Notes* Telephone Encounter - Fay Dumont Ma - 11/05/2022 4:45 PM EDT Asthmatx message sent to pt/daughter in law Horta [...] bmp in one week documented [facility] Miscellaneous Notes* Telephone Encounter - Judith Siu [...] 10/2022 Last refill; 01/2022 documented [facility] Miscellaneous Notes* Telephone Encounter - Em Aly - 07/31/2022 2:56 PM EDT Form already completed at time of visit. [place] informed that patient has form. Em Aly * Telephone Encounter - Em Aly - 07/31/2022 11:45 AM EDT Received H&P form from [facility]. Patient will be admitted in the next few weeks. Needs completed and faxed back. Placed on Vida's desk. Em Aly documented in this [facility] History of Present illness Narrative* Shaquille Benjamin MD - 07/30/2022 1:09 PM EDT Patient presents with: Follow Up HPI: Patient presents today for office visit for follow up. Has form to complete for going to [place]. Discussed her mag. Her weakness does not [...] - stable. 9. Coronary artery disease involving [place] heart without angina pectoris, unspecified vessel or [...] - stable. Shaquille Benjamin documented [facility] Miscellaneous Notes* Telephone Encounter - Shaquille Benjamin MD - 07/24/2022 2:49 PM EDT t documented in this [facility] History of Present illness Narrative* Shaquille Benjamin [...] Abs Lymph 1.00 - 4.00 k/uL 1.31 [place]% % 9.6 Abs [place] <0.87 k/uL 0.60 Eosin% % 2.6 Abs [...] BP <130/80 2. Coronary artery disease involving [place] heart without angina pectoris, unspecified vessel or [...] BLD Shaquille Benjamin MD documented [facility] Miscellaneous Notes* Telephone Encounter - Jeanette Gomez [...] notify patient. Jeanette Gomez documented in [facility] Miscellaneous Notes* Telephone Encounter - Rina Valenzuela Pss - 04/03/2022 12:19 PM EST Patient has [...] notify patient. Rina Baez documented in this encounter[facility] History of Present illness Narrative* Shaquille Benjamin [...] Abs Lymph 1.00 - 4.00 k/uL 1.26 [place]% % 7.3 Abs [place] <0.87 k/uL 0.54 Eosin% % 1.8 Abs [...] ICD10: E78.2 5. Coronary artery disease involving [place] heart without angina pectoris, unspecified vessel or [...] RTO in three months. documented in this [facility]12[facility] Miscellaneous Notes* Telephone Encounter - [...] you. Estefani Lane LPN documented in this encounter[facility]12-27-2022 Miscellaneous Notes* Telephone Encounter - [...] you. Estefani Lane LPN documented in this [facility]11-17-2022 Miscellaneous Notes* Telephone Encounter - Estefani Lane LPN - 01/11/2022 10:59 AM EST Refills remain at pharmacy. Patient notified. * Telephone Encounter - Kristel Naik Pss - 01/11/2022 10:18 AM EST Patient has [...] advise. Kristel Naik Pss documented in this [facility]10[facility] History of Present illness Narrative* Larissa Ellis, [...] of Care: created on 12/06/21 through 01/17/22 [place] in home exercise program. Patient will increase [...] Planned: 8 Planned Treatment Interventions: Therapeutic exercise (24831);Neuromuscular re- education (10210);Self-fdc management (29036);Patient/Family/Caregiver Education;General Conditioning PLAN FOR NEXT VISIT: Will [...] 40 Larissa Ellis PT documented in this [facility] History of Past illness Narrative* Problem Noted Date Resolved Date Generalized weakness 12/06/2021 01/17/2022 documented as of this encounter (statuses as of 02/26/2022) [facility] of Past illness Narrative* Problem Noted Date Resolved Date Generalized weakness 12/06/2021 01/17/2022 documented as of this encounter (statuses as of 02/26/2022) [facility] of Past illness Narrative* Problem Noted Date Resolved Date Generalized weakness 12/06/2021 01/17/2022 Risk for falls 01/30/2018 03/07/2022 documented as of this encounter (statuses as of 03/07/2022) [facility] of Past illness Narrative* Problem Noted Date Resolved Date Generalized weakness 12/06/2021 01/17/2022 Risk for falls 01/30/2018 03/07/2022 documented as of this encounter (statuses as of 04/03/2022) [address]12-2022 History of Past illness Narrative* Problem Noted Date Resolved Date Generalized weakness 12/06/2021 01/17/2022 Risk for falls 01/30/2018 03/07/2022 documented as of this encounter (statuses as of 05/14/2022) [address]12-2022 History of Past illness Narrative* Problem Noted Date Resolved Date Generalized weakness 12/06/2021 01/17/2022 Risk for falls 01/30/2018 03/07/2022 documented as of this encounter (statuses as of 06/07/2022) [facility] of [facility] illness Narrative* Problem Noted Date Resolved Date Generalized weakness 12/06/2021 01/17/2022 Risk for falls 01/30/2018 03/07/2022 documented as of this encounter (statuses as of 07/25/2022) [facility] of [facility] illness Narrative* Problem Noted Date Resolved Date Generalized weakness 12/06/2021 01/17/2022 Risk for falls 01/30/2018 03/07/2022 documented as of this encounter (statuses as of 07/30/2022) [facility] of [facility] illness Narrative* Problem Noted Date Resolved Date Generalized weakness 12/06/2021 01/17/2022 Risk for falls 01/30/2018 03/07/2022 documented as of this encounter (statuses as of 08/01/2022) [facility] of [facility] illness Narrative* Problem Noted Date Resolved Date Generalized weakness 12/06/2021 01/17/2022 Risk for falls 01/30/2018 03/07/2022 documented as of this encounter (statuses as of 08/19/2022) [facility] of [facility] illness Narrative* Problem Noted Date Diagnosed Date Resolved Date Generalized weakness 12/06/2021 022 Risk for falls 01/30/2018 03/07/2022 documented as of this encounter (statuses as of 11/06/2022) [facility] History of Present illness Narrative* Shaquille Benjamin [...] Abs Lymph 1.00 - 4.00 k/uL 1.20 [place]% % 7.0 Abs [place] <0.87 k/uL 0.58 Eosin% % 1.8 Abs [...] (coronary artery disease) Congestive heart failure (CHF) ([facility]) Diabetic retinopathy ([facility]) Diverticulitis Esophageal stenosis GERD (gastroesophageal reflux disease) Hemorrhoids HTN (hypertension) Hyperlipidemia Low magnesium level Polyneuropathy in diabetes ([facility]) Sleep apnea SSS (sick sinus syndrome) ([facility]) Type 2 diabetes mellitus ([facility]) Zenker's diverticulum PAST SURGICAL HISTORY [...] Musculoskeletal: ASSESSMENT/PLAN: 1. Coronary artery disease involving [place] heart without angina pectoris, unspecified vessel or [...] in January, labs before. documented in this encounter[facility]09-12-2022 Miscellaneous Notes* Telephone Encounter - Ronnie Hyman LPN - 11/06/2021 11:08 AM EDT Patient phones requesting refills as follows: Requested Prescriptions Pending Prescriptions Disp Refills citalopram (CELEXA) 20 mg tablet 30 tablet 5 Sig: Take 1 tablet by mouth once daily. RAFITA 08/09/21 NOV 11/08/21 Please review and advise. Ronnie Hyman LPN documented in this encounter[facility]09-07-2022 Miscellaneous Notes* Telephone Encounter - Fay Dumont Ma - 11/01/2021 12:53 PM EDT Mychart message sent to [facility] with information and recommendation below from Provider. To contact office if any questions. Fay Dumont Ma * Telephone Encounter - Shaquille Benjamin MD - 11/01/2021 12:43 PM EDT Labs are stable other than her magnesium has dropped. Keep her follow up appt but take an extra magnesium once a day for three days. documented in this encounter[facility]07-22-2022 Miscellaneous Notes* Telephone Encounter - Shaquille Benjamin MD - 09/15/2021 5:41 PM EDT Can we set up. documented in this encounterSouthern [facility]06-30-2022 Miscellaneous Notes* Telephone Encounter - Gracie Ferrer [...] notify patient. Gracie Ferrer documented in this encounterSouthern [facility]06-[facility] History of Present illness Narrative* Shaquille Benjamin [...] suicidal ideation. Her sister in law from [employer]. Added citalopram. Just saw Dr. Ruff. Had [...] Lymph 1.00 - 4.00 k/uL 1.11 1.15 [place]% % 7.5 9.0 Abs [place] <0.87 k/uL 0.43 0.51 Eosin% % 1.8 [...] (coronary artery disease) Congestive heart failure (CHF) ([facility]) Diabetic retinopathy ([facility]) Diverticulitis Esophageal stenosis GERD (gastroesophageal reflux disease) Hemorrhoids HTN (hypertension) Hyperlipidemia Low magnesium level Polyneuropathy in diabetes ([facility]) Sleep apnea SSS (sick sinus syndrome) ([facility]) Type 2 diabetes mellitus ([facility]) Zenker's diverticulum PAST SURGICAL HISTORY [...] is stable. 8. Coronary artery disease involving [place] heart without angina pectoris, unspecified vessel or [...] three months and prn. documented in this encounter[facility]06-[facility]-2022 Miscellaneous Notes* Telephone Encounter - Maribell Huertas Pss - 07/26/2021 4:08 PM EDT Please review dosage on sertraline rx. Epic shows 100 mg on current med list. Patient said it is 25 mg. * Telephone Encounter - Maribell Baez - 07/26/2021 4:07 PM EDT Patient [...] to pharmacy. No need to notify patient. Maribell Baez documented in this encounter[facility]04-28-2022 Miscellaneous Notes* Telephone Encounter - Naima Lopez Ma - 06/22/2021 10:58 AM EDT Last office visit: 05/11/21 F/u scheduled: 08/09/21 Naima Lopez Ma * Telephone Encounter - Loraine Elizondo Pss - 06/22/2021 10:26 AM EDT Pharmacy verified in Epic Patient has been identified by name and [...] 75.3 kg (166 lb) Please advise. Loraine Baez * Telephone Encounter - Loraine Baez - 06/22/2021 10:23 AM EDT Patient has a script from 03-08-21 for Sertraline 25 mg 1 tablet by mouth daily Disp: 30 Patient is doing well on this dosage. documented [facility] this [facility]* Diagnosis Depression, unspecified depression type [facility] Diagnosis Hypomagnesemia Disorders of magnesium metabolism Zenker diverticulum Diverticulum of esophagus, acquired Depression, unspecified depression type [facility]* Diagnosis Hyperlipidemia, mixed- Primary Mixed hyperlipidemia Hypomagnesemia Disorders of magnesium metabolism Type 2 diabetes mellitus with complication, without long-term current use of insulin ([facility]) Medication monitoring encounter Encounter for therapeutic drug monitoring [facility]* Diagnosis Vitamin B12 deficiency- Primary Other B-complex deficiencies Acute midline thoracic back pain Osteoarthritis of both knees, unspecified osteoarthritis type Type 2 diabetes mellitus with complication, without long-term current use of insulin ([facility]) Essential hypertension Unspecified essential hypertension Bilateral carotid artery stenosis Occlusion and stenosis of carotid artery without mention of cerebral infarction Subclinical hypothyroidism Other specified acquired hypothyroidism Coronary artery disease involving [place] heart without angina pectoris, unspecified vessel or lesion type Zenker diverticulum Diverticulum of esophagus, acquired GERD without esophagitis Esophageal reflux Depression, unspecified depression type Hyperlipidemia, mixed Mixed hyperlipidemia Anemia, unspecified type documented [facility] this [facility]* Diagnosis Type 2 diabetes mellitus with complication, without long-term current use of insulin ([facility]) [facility] Diagnosis Dysphagia, unspecified type- Primary documented [facility] this encounter [facility] foundation noteNo assessment information availableWAvita Health [facility] Work Phone: Evaluation note* Diagnosis Vitamin B12 deficiency- Primary Other B-complex deficiencies Anemia, unspecified type Hypomagnesemia Disorders of magnesium metabolism Hyponatremia Hyposmolality and/or hyponatremia documented in this encounter [facility] note* Diagnosis Anxiety with depression documented in this encounter [facility] note* Diagnosis Onset Date Resolution Status Dysphagia acute Esophageal stenosis acute History of excision of Zenker's diverticulum acute Neck mass acute [facility] Work Phone: Evaluation note* Diagnosis Coronary artery disease involving [place] heart without angina pectoris, unspecified vessel or [...] without long-term current use of insulin (HCC) Primary osteoarthritis of both knees Primary localized osteoarthrosis, lower leg Cervical stenosis of spine Spinal stenosis in cervical region Generalized weakness Other malaise and fatigue documented in this encounter [facility] note* Diagnosis Primary osteoarthritis of both knees- Primary Primary localized osteoarthrosis, lower leg Chronic thoracic back pain, unspecified back pain laterality Generalized weakness Other malaise and fatigue [facility]* Diagnosis Essential hypertension Unspecified essential hypertension [facility]* Diagnosis Acute midline thoracic back pain Osteoarthritis of both knees, unspecified osteoarthritis type [facility]* Diagnosis Type 2 diabetes mellitus with complication, without long-term current use of insulin ([facility])- Primary Encounter for immunization Need for other specified prophylactic vaccination against single bacterial disease 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) Unspecified hypertensive heart disease with heart failure Hyperlipidemia, mixed Mixed hyperlipidemia Coronary artery disease involving [place] heart without angina pectoris, unspecified vessel or [...] [facility] Diagnosis Acute midline thoracic back pain Osteoarthritis of both knees, unspecified osteoarthritis type [facility]* Diagnosis Essential hypertension- Primary Unspecified essential hypertension Coronary artery disease involving [place] heart without angina pectoris, unspecified vessel or [...] complication, without long-term current use of insulin ([facility]) Subclinical hypothyroidism Other specified acquired hypothyroidism Major depressive disorder, recurrent, in partial remission ([facility]) Major depressive disorder, recurrent episode, in partial or unspecified remission documented in this encounter [facility] note* Diagnosis Type 2 diabetes mellitus with complication, without long-term current use of insulin ([facility])- Primary Encounter for medication monitoring Encounter for therapeutic drug monitoring documented in this encounter [facility] note* Diagnosis Hyponatremia- Primary Hyposmolality and/or hyponatremia Hypomagnesemia Disorders of magnesium metabolism Acute midline thoracic back pain Osteoarthritis of both knees, unspecified osteoarthritis type Spinal stenosis of lumbar region, unspecified whether neurogenic claudication present Vitamin B12 deficiency Other B-complex deficiencies GERD without esophagitis Esophageal reflux Zenker diverticulum Diverticulum of esophagus, acquired Coronary artery disease involving [place] heart without angina pectoris, unspecified vessel or lesion type Essential hypertension Unspecified essential hypertension Hyperlipidemia, mixed Mixed hyperlipidemia 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) Unspecified hypertensive heart disease with heart failure Depression, unspecified depression type Type 2 diabetes mellitus with complication, without long-term current use of insulin (HCC) Subclinical hypothyroidism Other specified acquired hypothyroidism [facility] Essential hypertension Unspecified essential hypertension [facility]* Diagnosis Hyponatremia- Primary Hyposmolality and/or hyponatremia [facility]* Diagnosis Coronary artery disease involving [place] heart without angina pectoris, unspecified vessel or lesion type- Primary Subclinical hypothyroidism Other specified acquired hypothyroidism Anxiety with depression Encounter for immunization Need for other specified prophylactic vaccination against single bacterial disease Tachycardia-bradycardia (HCC) Sinoatrial node dysfunction Essential hypertension Unspecified essential hypertension LEKIN (obstructive sleep apnea) Obstructive sleep apnea (adult) [...] Anemia, unspecified type [facility]* Diagnosis Essential hypertension- Primary Unspecified essential hypertension Coronary artery disease involving [place] heart without angina pectoris, unspecified vessel or [...] unspecified single disease [facility]* Diagnosis Anxiety with depression Type 2 diabetes mellitus with complication, without long-term current use of insulin (HCC) documented [facility]* Diagnosis Acute midline thoracic back pain Osteoarthritis of both knees, unspecified osteoarthritis type [facility]* Diagnosis Type 2 diabetes mellitus with complication, without long-term current use of insulin (HCC) Acute midline thoracic back pain Osteoarthritis of both knees, unspecified osteoarthritis type documented [facility]* Diagnosis Essential hypertension Unspecified essential hypertension [facility]* Diagnosis Tachycardia-bradycardia (HCC)- Primary Sinoatrial node [...] and behavioral disorders documented [facility]* Diagnosis Hypomagnesemia- Primary Disorders of magnesium metabolism documented in this encounter [facility] note* Diagnosis Pre-operative examination- Primary Preoperative examination, unspecified Dysphagia, unspecified type History of CVA in adulthood Bilateral carotid artery stenosis Occlusion and stenosis of carotid artery without mention of cerebral infarction 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) Unspecified hypertensive heart disease with heart failure Hyperlipidemia, mixed Mixed hyperlipidemia Essential hypertension Unspecified essential hypertension Coronary artery disease involving [place] heart without angina pectoris, unspecified vessel or [...] unspecified osteoarthritis type documented in this encounter [facility] note* Diagnosis Pre-operative examination- Primary Preoperative examination, unspecified Dysphagia, unspecified type History of CVA in adulthood Bilateral carotid artery stenosis Occlusion and stenosis of carotid artery without mention of cerebral infarction 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) Unspecified hypertensive heart disease with heart failure Hyperlipidemia, mixed Mixed hyperlipidemia Essential hypertension Unspecified essential hypertension Coronary artery disease involving [place] heart without angina pectoris, unspecified vessel or [...] complication, without long-term current use of insulin ([facility])- Primary Onychomycosis Dermatophytosis of nail Diminished pulses in lower extremity Other symptoms involving cardiovascular system [facility]* Diagnosis Pre-operative examination- Primary Preoperative examination, unspecified Dysphagia, unspecified type History of CVA in adulthood Bilateral carotid artery stenosis Occlusion and stenosis of carotid artery without mention of cerebral infarction 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) Unspecified hypertensive heart disease with heart failure Hyperlipidemia, mixed Mixed hyperlipidemia Essential hypertension Unspecified essential hypertension Coronary artery disease involving [place] heart without angina pectoris, unspecified vessel or lesion type ELKIN (obstructive sleep apnea) Obstructive sleep apnea (adult) (pediatric) Zenker diverticulum Diverticulum of esophagus, acquired GERD without esophagitis Esophageal reflux Hyponatremia Hyposmolality and/or hyponatremia Hypomagnesemia Disorders of magnesium metabolism Type 2 diabetes mellitus with complication, without long-term current use of insulin ([facility]) Subclinical hypothyroidism Other specified acquired hypothyroidism Chronic thoracic back pain, unspecified back pain laterality Depression, unspecified depression type Subclinical hypothyroidism Other specified acquired hypothyroidism [facility]* Diagnosis Pre-operative examination- Primary Preoperative examination, unspecified Dysphagia, unspecified type History of CVA in adulthood Bilateral carotid artery stenosis Occlusion and stenosis of carotid artery without mention of cerebral infarction 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) Unspecified hypertensive heart disease with heart failure Hyperlipidemia, mixed Mixed hyperlipidemia Essential hypertension Unspecified essential hypertension Coronary artery disease involving [place] heart without angina pectoris, unspecified vessel or [...] unspecified osteoarthritis type documented in this encounter [facility] note* Diagnosis Pre-operative examination- Primary Preoperative examination, unspecified Dysphagia, unspecified type History of CVA in adulthood Bilateral carotid artery stenosis Occlusion and stenosis of carotid artery without mention of cerebral infarction 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) Unspecified hypertensive heart disease with heart failure Hyperlipidemia, mixed Mixed hyperlipidemia Essential hypertension Unspecified essential hypertension Coronary artery disease involving [place] heart without angina pectoris, unspecified vessel or [...] of insulin (HCC) documented in this encounter [facility] note* Diagnosis Pre-operative examination- Primary Preoperative examination, unspecified Dysphagia, unspecified type History of CVA in adulthood Bilateral carotid artery stenosis Occlusion and stenosis of carotid artery without mention of cerebral infarction 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) Unspecified hypertensive heart disease with heart failure Hyperlipidemia, mixed Mixed hyperlipidemia Essential hypertension Unspecified essential hypertension Coronary artery disease involving [place] heart without angina pectoris, unspecified vessel or [...] initial encounter- Primary documented in this encounter [facility] note* Diagnosis Pre-operative examination- Primary Preoperative examination, unspecified Dysphagia, unspecified type History of CVA in adulthood Bilateral carotid artery stenosis Occlusion and stenosis of carotid artery without mention of cerebral infarction 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) Unspecified hypertensive heart disease with heart failure Hyperlipidemia, mixed Mixed hyperlipidemia Essential hypertension Unspecified essential hypertension Coronary artery disease involving [place] heart without angina pectoris, unspecified vessel or [...] unspecified osteoarthritis type documented in this encounter [facility] note* Diagnosis Pre-operative examination- Primary Preoperative examination, unspecified Dysphagia, unspecified type History of CVA in adulthood Bilateral carotid artery stenosis Occlusion and stenosis of carotid artery without mention of cerebral infarction 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) Unspecified hypertensive heart disease with heart failure Hyperlipidemia, mixed Mixed hyperlipidemia Essential hypertension Unspecified essential hypertension Coronary artery disease involving [place] heart without angina pectoris, unspecified vessel or [...] unspecified osteoarthritis type documented in this encounter [facility] note* Diagnosis Pre-operative examination- Primary Preoperative examination, unspecified Dysphagia, unspecified type History of CVA in adulthood Bilateral carotid artery stenosis Occlusion and stenosis of carotid artery without mention of cerebral infarction 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) Unspecified hypertensive heart disease with heart failure Hyperlipidemia, mixed Mixed hyperlipidemia Essential hypertension Unspecified essential hypertension Coronary artery disease involving [place] heart without angina pectoris, unspecified vessel or [...] Unspecified essential hypertension Coronary artery disease involving [place] heart without angina pectoris, unspecified vessel or [...] of cerebral infarction [facility]* Diagnosis Pre-operative examination- Primary Preoperative examination, unspecified Dysphagia, unspecified type History of CVA in adulthood Bilateral carotid artery stenosis Occlusion and stenosis of carotid artery without mention of cerebral infarction 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) Unspecified hypertensive heart disease with heart failure Hyperlipidemia, mixed Mixed hyperlipidemia Essential hypertension Unspecified essential hypertension Coronary artery disease involving [place] heart without angina pectoris, unspecified vessel or [...] back pain laterality documented in this encounter [facility] note* Diagnosis Pre-operative examination- Primary Preoperative examination, unspecified Dysphagia, unspecified type History of CVA in adulthood Bilateral carotid artery stenosis Occlusion and stenosis of carotid artery without mention of cerebral infarction 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) Unspecified hypertensive heart disease with heart failure Hyperlipidemia, mixed Mixed hyperlipidemia Essential hypertension Unspecified essential hypertension Coronary artery disease involving [place] heart without angina pectoris, unspecified vessel or [...] unspecified osteoarthritis type documented in this encounter [facility] note* Diagnosis Pre-operative examination- Primary Preoperative examination, unspecified Dysphagia, unspecified type History of CVA in adulthood Bilateral carotid artery stenosis Occlusion and stenosis of carotid artery without mention of cerebral infarction 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) Unspecified hypertensive heart disease with heart failure Hyperlipidemia, mixed Mixed hyperlipidemia Essential hypertension Unspecified essential hypertension Coronary artery disease involving [place] heart without angina pectoris, unspecified vessel or [...] Unspecified essential hypertension documented in this encounter [facility] for referral (narrative)* Outpatient Procedure (Routine) - Authorized Specialty Diagnoses / Procedures Referred By Grzegorz t Referred To Contact [facility] Diagnoses Bilateral carotid artery stenosis Procedures US CAROTID ARTERIES JOSSELINE VAS LAB DUPLEX SCAN EXTRACRANIAL ART COMPL BI STUDY Shaquille Benjamin MD [address] [place] [address] [facility] [place] [address] [place] [address] Referral ID Status Reason Start Date Expiration Date Visits Requested Visits Authorized [id number] Authorized Auto-Generat ed Referral 06/06/2022 06/06/2023 1 1 [facility]Reason [facility] (narrative)No reason for referral information availablePulaski [facility] Work Phone: Advance Directives No Advanced Directives Records FoundDocuments on File Type Date Recorded Patient Filler Shredder Expl anation Advance Directive(s) 02/26/2019 9:16 AM Advance Directive(s) 02/10/2019 2:19 PM Documents on File Type Date Recorded Patient Filler Shredder Expl anation Advance Directive(s) 02/26/2019 9:16 AM Advance Directive(s) 02/10/2019 2:19 PM Advance Directive Response Recorded Date/ Time Living Will Yes November 04, 2018 4:17pm Power of Metal Forger'S Assistant Yes October 4:17pm Advance Directive Response Recorded Date/ Time Name of Medical Power of Metal Forger'S Assistant ERIN MEJIA October 25, 2021 2:53pm Living Will Yes October 25 2:53pm Power of Metal Forger'S Assistant Yes October 25 2:53pm Reason for Referral Specialty Diagnoses / Procedures Referred By Grzegorz blair Referred To Contact Gastroenterology Diagnoses Dysphagia, unspecified type Procedures CONSULT TO GASTROENTEROLOGY Shaquille Benjamin MD [address] [place] [address] Referral ID Status Reason Start Date Expiration Date Visits Requested Visits Authorized [id number] Ref Not Required PCP Requested Referral 09/15/2021 09/15/2022 1 1 Specialty Diagnoses / Procedures Referred By Grzegorz blair Referred To Contact XR IMAGING Diagnoses Dysphagia, unspecified type Procedures XR ESOPHAGRAM RADIOLOGIC EXAM ESOPHAGUS SINGLE CONTRAST STUDY Shaquille Benjamin MD [address] [place] [address] Xr Imaging Referral ID Status Reason Start Date Expiration Date Visits Requested Visits Authorized [id number] Pending Review Auto-Generat ed Referral 09/15/2021 10/15/2022 [...] HIGH COMPLEX 45 MINS Shaquille Benjamin MD [address] [place] [address] [facility] [address] [address] Referral ID Status Reason Start Date Expiration Date Visits Requested Visits Authorized [id number] Authorized PCP Requested Referral Auto-Generate d Referral 11/08/2021 11/08/2022 99 99 Specialty Diagnoses / Procedures Referred By Contac t Referred To Contact Podiatry Diagnoses Type 2 diabetes mellitus with complication, without long-term current use of insulin (HCC) Onychomycosis Procedures CONSULT TO PODIATRY OFFICE/OUTPATIENT [facility] 60 MINUTES Shaquille Benjamin MD [address] [place] [address] Referral ID Status Reason Start Date Expiration Date Visits Requested Visits Authorized [id number] Authorized PCP Requested Referral 09/20/2023 09/19/2024 1 1 Specialty Diagnoses / Procedures Referred By Contac t Referred To Contact [facility] Diagnoses Spinal stenosis of lumbar region, unspecified whether neurogenic claudication present Gait disturbance Procedures CONSULT TO PHYSICAL THERAPY PHYSICAL THERAPY EVALUATION HIGH COMPLEX 45 MINS Shaquille Benjamin MD [address] [place] [address] [facility] [address] [address] Referral ID Status Reason Start Date Expiration Date Visits Requested Visits Authorized [id number] Authorized PCP Requested Referral Auto-Generate d Referral [...] MONTHLY EXAM August 04, 2024 4:45 pm PENITENTIARY LAB WORK August 11, 2024 5: 00am [...] MONTHLY EXAM August 04, 2024 4:45 pm PENITENTIARY LAB WORK August 11, 2024 5: 00am [...] MONTHLY EXAM August 04, 2024 4:45 pm PENITENTIARY LAB WORK August 11, 2024 5: 00am Chief Complaint Admit Date LAB WORK June 10, 2024 5:0 0am LAB WORK June 16, 2024 4:0 0am LAB WORK June 23, 2024 5:0 0am LAB WORK June 30, 2024 5:00am MONTHLY EXAM June 30, 2024 3:44pm NEW CONCERN July 08, 2024 3:43p m MONTHLY EXAM August 04, 2024 4:45 pm PENITENTIARY LAB WORK August 11, 2024 5: 00am [...] or prosecute any alcohol or drug abuse patient.[facility] CenterIn the event this information is protected by the Federal Confidentiality of Alcohol and Drug Abuse Patient Records regulations: The Federal rules restrict any use of the information to criminally investigate or prosecute any alcohol or drug abuse patient.[facility] CenterIn the event this information is protected by the Federal Confidentiality of Alcohol and Drug Abuse Patient Records regulations: The Federal rules restrict any use of the information to criminally investigate or prosecute any alcohol or drug abuse patient.[facility] CenterIn the event this information is protected by the Federal Confidentiality of Alcohol and Drug Abuse Patient Records regulations: The Federal rules restrict any use of the information to criminally investigate or prosecute any alcohol or drug abuse patient.[facility] CenterIn the event this information is protected by the Federal Confidentiality of Alcohol and Drug Abuse Patient Records regulations: The Federal rules restrict any use of the information to criminally investigate or prosecute any alcohol or drug abuse patient.[facility] CenterIn the event this information is protected by the Federal Confidentiality of Alcohol and Drug Abuse Patient Records regulations: The Federal rules restrict any use of the information to criminally investigate or prosecute any alcohol or drug abuse patient.[facility] CenterIn the event this information is protected by the Federal Confidentiality of Alcohol and Drug Abuse Patient Records regulations: The Federal rules restrict any use of the information to criminally investigate or prosecute any alcohol or drug abuse patient.[facility] CenterIn the event this information is protected by the Federal Confidentiality of Alcohol and Drug Abuse Patient Records regulations: The Federal rules restrict any use of the information to criminally investigate or prosecute any alcohol or drug abuse patient.[facility] CenterIn the event this information is protected by the Federal Confidentiality of Alcohol and Drug Abuse Patient Records regulations: The Federal rules restrict any use of the information to criminally investigate or prosecute any alcohol or drug abuse patient.[facility] CenterIn the event this information is protected by the Federal Confidentiality of Alcohol and Drug Abuse Patient Records regulations: The Federal rules restrict any use of the information to criminally investigate or prosecute any alcohol or drug abuse patient.[facility] CenterIn the event this information is protected by the Federal Confidentiality of Alcohol and Drug Abuse Patient Records regulations: The Federal rules restrict any use of the information to criminally investigate or prosecute any alcohol or drug abuse patient.[facility] CenterIn the event this information is protected by the Federal Confidentiality of Alcohol and Drug Abuse Patient Records regulations: The Federal rules restrict any use of the information to criminally investigate or prosecute any alcohol or drug abuse patient.[facility] CenterIn the event this information is protected by the Federal Confidentiality of Alcohol and Drug Abuse Patient Records regulations: The Federal rules restrict any use of the information to criminally investigate or prosecute any alcohol or drug abuse patient.[facility] CenterIn the event this information is protected by the Federal Confidentiality of Alcohol and Drug Abuse Patient Records regulations: The Federal rules restrict any use of the information to criminally investigate or prosecute any alcohol or drug abuse patient.[facility] CenterIn the event this information is protected by the Federal Confidentiality of Alcohol and Drug Abuse Patient Records regulations: The Federal rules restrict any use of the information to criminally investigate or prosecute any alcohol or drug abuse patient.[facility] CenterIn the event this information is protected by the Federal Confidentiality of Alcohol and Drug Abuse Patient Records regulations: The Federal rules restrict any use of the information to criminally investigate or prosecute any alcohol or drug abuse patient.[facility] CenterIn the event this information is protected by the Federal Confidentiality of Alcohol and Drug Abuse Patient Records regulations: The Federal rules restrict any use of the information to criminally investigate or prosecute any alcohol or drug abuse patient.[facility] CenterIn the event this information is protected by the Federal Confidentiality of Alcohol and Drug Abuse Patient Records regulations: The Federal rules restrict any use of the information to criminally investigate or prosecute any alcohol or drug abuse patient.[facility] CenterIn the event this information is protected by the Federal Confidentiality of Alcohol and Drug Abuse Patient Records regulations: The Federal rules restrict any use of the information to criminally investigate or prosecute any alcohol or drug abuse patient.[facility] CenterIn the event this information is protected by the Federal Confidentiality of Alcohol and Drug Abuse Patient Records regulations: The Federal rules restrict any use of the information to criminally investigate or prosecute any alcohol or drug abuse patient.[facility] CenterIn the event this information is protected by the Federal Confidentiality of Alcohol and Drug Abuse Patient Records regulations: The Federal rules restrict any use of the information to criminally investigate or prosecute any alcohol or drug abuse patient.[facility] CenterIn the event this information is protected by the Federal Confidentiality of Alcohol and Drug Abuse Patient Records regulations: The Federal rules restrict any use of the information to criminally investigate or prosecute any alcohol or drug abuse patient.[facility] CenterIn the event this information is protected by the Federal Confidentiality of Alcohol and Drug Abuse Patient Records regulations: The Federal rules restrict any use of the information to criminally investigate or prosecute any alcohol or drug abuse patient.[facility] CenterIn the event this information is protected by the Federal Confidentiality of Alcohol and Drug Abuse Patient Records regulations: The Federal rules restrict any use of the information to criminally investigate or prosecute any alcohol or drug abuse patient.[facility] CenterIn the event this information is protected by the Federal Confidentiality of Alcohol and Drug Abuse Patient Records regulations: The Federal rules restrict any use of the information to criminally investigate or prosecute any alcohol or drug abuse patient.[facility] CenterIn the event this information is protected by the Federal Confidentiality of Alcohol and Drug Abuse Patient Records regulations: The Federal rules restrict any use of the information to criminally investigate or prosecute any alcohol or drug abuse patient.[facility] CenterIn the event this information is protected by the Federal Confidentiality of Alcohol and Drug Abuse Patient Records regulations: The Federal rules restrict any use of the information to criminally investigate or prosecute any alcohol or drug abuse patient.[facility] CenterIn the event this information is protected by the Federal Confidentiality of Alcohol and Drug Abuse Patient Records regulations: The Federal rules restrict any use of the information to criminally investigate or prosecute any alcohol or drug abuse patient.[facility] CenterIn the event this information is protected by the Federal Confidentiality of Alcohol and Drug Abuse Patient Records regulations: The Federal rules restrict any use of the information to criminally investigate or prosecute any alcohol or drug abuse patient.[facility] CenterIn the event this information is protected by the Federal Confidentiality of Alcohol and Drug Abuse Patient Records regulations: The Federal rules restrict any use of the information to criminally investigate or prosecute any alcohol or drug abuse patient.[facility] CenterIn the event this information is protected by the Federal Confidentiality of Alcohol and Drug Abuse Patient Records regulations: The Federal rules restrict any use of the information to criminally investigate or prosecute any alcohol or drug abuse patient.[facility] CenterIn the event this information is protected by the Federal Confidentiality of Alcohol and Drug Abuse Patient Records regulations: The Federal rules restrict any use of the information to criminally investigate or prosecute any alcohol or drug abuse patient.[facility] CenterIn the event this information is protected by the Federal Confidentiality of Alcohol and Drug Abuse Patient Records regulations: The Federal rules restrict any use of the information to criminally investigate or prosecute any alcohol or drug abuse patient.[facility] CenterIn the event this information is protected by the Federal Confidentiality of Alcohol and Drug Abuse Patient Records regulations: The Federal rules restrict any use of the information to criminally investigate or prosecute any alcohol or drug abuse patient.[facility] CenterIn the event this information is protected by the Federal Confidentiality of Alcohol and Drug Abuse Patient Records regulations: The Federal rules restrict any use of the information to criminally investigate or prosecute any alcohol or drug abuse patient.[facility] CenterIn the event this information is protected by the Federal Confidentiality of Alcohol and Drug Abuse Patient Records regulations: The Federal rules restrict any use of the information to criminally investigate or prosecute any alcohol or drug abuse patient.[facility] CenterIn the event this information is protected by the Federal Confidentiality of Alcohol and Drug Abuse Patient Records regulations: The Federal rules restrict any use of the information to criminally investigate or prosecute any alcohol or drug abuse patient.[facility] CenterIn the event this information is protected by the Federal Confidentiality of Alcohol and Drug Abuse Patient Records regulations: The Federal rules restrict any use of the information to criminally investigate or prosecute any alcohol or drug abuse patient.[facility] CenterIn the event this information is protected by the Federal Confidentiality of Alcohol and Drug Abuse Patient Records regulations: The Federal rules restrict any use of the information to criminally investigate or prosecute any alcohol or drug abuse patient.[facility] CenterIn the event this information is protected by the Federal Confidentiality of Alcohol and Drug Abuse Patient Records regulations: The Federal rules restrict any use of the information to criminally investigate or prosecute any alcohol or drug abuse patient.[facility] CenterIn the event this information is protected by the Federal Confidentiality of Alcohol and Drug Abuse Patient Records regulations: The Federal rules restrict any use of the information to criminally investigate or prosecute any alcohol or drug abuse patient.[facility] CenterIn the event this information is protected by the Federal Confidentiality of Alcohol and Drug Abuse Patient Records regulations: The Federal rules restrict any use of the information to criminally investigate or prosecute any alcohol or drug abuse patient.[facility] CenterIn the event this information is protected by the Federal Confidentiality of Alcohol and Drug Abuse Patient Records regulations: The Federal rules restrict any use of the information to criminally investigate or prosecute any alcohol or drug abuse patient.[facility] CenterIn the event this information is protected by the Federal Confidentiality of Alcohol and Drug Abuse Patient Records regulations: The Federal rules restrict any use of the information to criminally investigate or prosecute any alcohol or drug abuse patient.[facility] CenterIn the event this information is protected by the Federal Confidentiality of Alcohol and Drug Abuse Patient Records regulations: The Federal rules restrict any use of the information to criminally investigate or prosecute any alcohol or drug abuse patient.[facility] CenterIn the event this information is protected by the Federal Confidentiality of Alcohol and Drug Abuse Patient Records regulations: The Federal rules restrict any use of the information to criminally investigate or prosecute any alcohol or drug abuse patient.[facility] CenterIn the event this information is protected by the Federal Confidentiality of Alcohol and Drug Abuse Patient Records regulations: The Federal rules restrict any use of the information to criminally investigate or prosecute any alcohol or drug abuse patient.[facility] CenterIn the event this information is protected by the Federal Confidentiality of Alcohol and Drug Abuse Patient Records regulations: The Federal rules restrict any use of the information to criminally investigate or prosecute any alcohol or drug abuse patient.[facility] CenterIn the event this information is protected by the Federal Confidentiality of Alcohol and Drug Abuse Patient Records regulations: The Federal rules restrict any use of the information to criminally investigate or prosecute any alcohol or drug abuse patient.[facility] CenterIn the event this information is protected by the Federal Confidentiality of Alcohol and Drug Abuse Patient Records regulations: The Federal rules restrict any use of the information to criminally investigate or prosecute any alcohol or drug abuse patient.[facility] CenterIn the event this information is protected by the Federal Confidentiality of Alcohol and Drug Abuse Patient Records regulations: The Federal rules restrict any use of the information to criminally investigate or prosecute any alcohol or drug abuse patient.[facility] CenterIn the event this information is protected by the Federal Confidentiality of Alcohol and Drug Abuse Patient Records regulations: The Federal rules restrict any use of the information to criminally investigate or prosecute any alcohol or drug abuse patient.[facility] CenterIn the event this information is protected by the Federal Confidentiality of Alcohol and Drug Abuse Patient Records regulations: The Federal rules restrict any use of the information to criminally investigate or prosecute any alcohol or drug abuse patient.[facility] CenterIn the event this information is protected by the Federal Confidentiality of Alcohol and Drug Abuse Patient Records regulations: The Federal rules restrict any use of the information to criminally investigate or prosecute any alcohol or drug abuse patient.[facility] Reason for Visit (unrecogniz ed section and [...] Referred By Grzegorz blair Referred To Contact [facility] Diagnoses Acute midline thoracic back pain Chronic thoracic back pain, unspecified back pain laterality Primary osteoarthritis of both knees Cervical stenosis of spine Generalized weakness Procedures CONSULT TO PHYSICAL THERAPY PHYSICAL THERAPY EVALUATION HIGH COMPLEX 45 MINS Shaquille Benjamin MD [address] [place] [address] [facility] [place] [address] [place] [id number] Referral ID Status Reason Start Date Expiration Date Visits Requested Visits Authorized [id number] Authorized PCP Requested Referral Auto-Generate d Referral [...] Referred By Grzegorz blair Referred To Contact Podiatry Diagnoses Type 2 diabetes mellitus with complication, without long-term current use of insulin (HCC) Onychomycosis Procedures CONSULT TO PODIATRY OFFICE/OUTPATIENT [facility] MDM 60 MINUTES Shaquille Benjamin MD [address] [place] [address] Referral ID Status Reason Start Date Expiration Date V isits Requested Visits Authorized [id number] Closed PCP Requested Referral 09/20/2023 09/19/2024 1 [...] Comments Population Health Navigation Outreach [facility] Reason Onset Date Comments Population Health Navigation Outreach 06/22[facility]2024 [facility]SA Care Teams (unrecognized sec tion and content) Cloth Roll Winder Relationship Specialty Start Date End Date Shaquille Benjamin MD [address] [place], [place] [id number] PCP - General Family Practice 02/13/18 Cloth Roll Winder Relationship Specialty Start Date End Date Shaquille Benjamin MD [address] [place], [place] [id number] PCP - General Family Practice 02/13/18 Cloth Roll Winder Relationship Specialty Start Date End Date Shaquille Benjamin MD [address] [place], [place] [address] PCP - General Family Practice 02/13/18 Cloth Roll Winder Relationship Specialty Start Date End Date Shaquille Benjamin MD [address] [place], [place] [id number] PCP - General Family Practice 02/13/18 Cloth Roll Winder Relationship Specialty Start Date End Date Shaquille Benjamin MD [address] [place] [phone] PCP - General Family Practice 02/13/18 Cloth Roll Winder Relationship Specialty Start Date End Date Shaquille Benjamin MD [address] [facility] [place] [address] PCP - General Family Practice 02/13/18 Cloth Roll Winder Relationship Specialty Start Date End Date Shaquille Benjamin MD [address] [facility] [place] [address] PCP - General Family Practice 02/13/18 Cloth Roll Winder Relationship Specialty Start Date End Date Shaquille Benjamin MD [address] [facility] [place] [address] PCP - General Family Practice 02/13/18 Cloth Roll Winder Relationship Specialty Start Date End Date Shaquille Benjamin MD [address] [facility] [place] [address] PCP - General Family Practice 02/13/18 Cloth Roll Winder Relationship Specialty Start Date End Date Shaquille Benjaimn MD [address] [facility] [place] [address] PCP - General Family Medicine 02/13/18 Cloth Roll Winder Relationship Specialty Start Date End Date Shaquille Benjamin MD [address] [facility] [place] [address] PCP - General Family Medicine 02/13/18 Cloth Roll Winder Relationship Specialty Start Date End Date Shaquille Benjamin MD [address] [facility] [place] [address] PCP - General Family Medicine 02/13/18 Cloth Roll Winder Relationship Specialty Start Date End Date Shaquille Benjamin MD [address] [facility] [place] [address] PCP - General Family Medicine 02/13/18 Cloth Roll Winder Relationship Specialty Start Date End Date Shaquille Benjamin MD [address] [place] [address] PCP - General Family Medicine 02/13/18 Cloth Roll Winder Relationship Specialty Start Date End Date Shaquille Benjamin MD [address] [place] [address] PCP - General Family Medicine 02/13/18 Cloth Roll Winder Relationship Specialty Start Date End Date Shaquille Benjamin MD [address] [place] [address] PCP - General Family Medicine 02/13/18 Cloth Roll Winder Relationship Specialty Start Date End Date Shaquille Benjamin MD [address] [place] [address] PCP - General Family Medicine 02/13/18 Cloth Roll Winder Relationship Specialty Start Date End Date Shaquille Benjamin MD [address] [place] [address] PCP - General Family Medicine 02/13/18 Cloth Roll Winder Relationship Specialty Start Date End Date Shaquille Benjamin MD [address] [place] [address] PCP - General Family Medicine 02/13/18 Cloth Roll Winder Relationship Specialty Start Date End Date Shaquille Benjamin MD [address] [place] [address] PCP - General Family Medicine 02/13/18 Cloth Roll Winder Relationship Specialty Start Date End Date Shaquille Benjamin MD [address] [place] [address] PCP - General Family Medicine 02/13/18 Cloth Roll Winder Relationship Specialty Start Date End Date Shaquille Benjamin MD [address] [place] [address] PCP - General Family Medicine 02/13/18 Cloth Roll Winder Relationship Specialty Start Date End Date Shaquille Benjamin MD [address] [place] [address] PCP - General Family Medicine 02/13/18 Cloth Roll Winder Relationship Specialty Start Date End Date Shaquille Benjamin MD [address] [place] [address] PCP - General Family Medicine 02/13/18 Cloth Roll Winder Relationship Specialty Start Date End Date Shaquille Benjamin MD [address] [place] [address] PCP - General Family Medicine 02/13/18 Cloth Roll Winder Relationship Specialty Start Date End Date Shaquille Benjamin MD [address] [place] [address] PCP - General Family Medicine 02/13/18 Cloth Roll Winder Relationship Specialty Start Date End Date Shaquille Benjamin MD [address] [place] [address] PCP - General Family Medicine 02/13/18 Cloth Roll Winder Relationship Specialty Start Date End Date Shaquille Benjamin MD [address] [place] [address] PCP - General Family Medicine 02/13/18 Cloth Roll Winder Relationship Specialty Start Date End Date Shaquille Benjamin MD [address] [place], [place] [address] PCP - General Family Medicine 02/13/18 Cloth Roll Winder Relationship Specialty Start Date End Date Shaquille Benjamin MD [address] [place] [address] PCP - General Family Medicine 02/13/18 Cloth Roll Winder Relationship Specialty Start Date End Date Shaquille Benjamin MD [address] [place], [place] [address] PCP - General Family Medicine 02/13/18 Cloth Roll Winder Relationship Specialty Start Date End Date Shaquille Benjamin MD [address] [place], [place] [address] PCP - General Family Medicine 02/13/18 Cloth Roll Winder Relationship Specialty Start Date End Date Shaquille Benjamin MD [address] [place] [address] PCP - General Family Medicine 02/13/18 Cloth Roll Winder Relationship Specialty Start Date End Date Shaquille Benjamin MD [address] [place] [address] PCP - General Family Medicine 02/13/18 Cloth Roll Winder Relationship Specialty Start Date End Date Shaquille Benjamin MD [address] [place] [address] PCP - General Family Medicine 02/13/18 Cloth Roll Winder Relationship Specialty Start Date End Date Shaquille Benjamin MD [address] [place] [address] PCP - General Family Medicine 02/13/18 Rajwinder Wilson APRN.BEHAVIORAL INSTRUCTOR [address] [place] [address] [facility] 02/03/24 Estefani Hector APRN.BEHAVIORAL INSTRUCTOR [address] [place] [address] [facility] 02/03/24 Cloth Roll Winder Relationship Specialty Start Date End Date Shaquille Benjamin MD [address] [place], [place] [address]17[address] PCP - General Family Medicine 02/13/18 Rajwinder Wilson, CAFETERIA ATTENDANT.BEHAVIORAL INSTRUCTOR [address] [place], [place] [address] [phone] [facility] 02/03/24 Estefani Hector, CAFETERIA ATTENDANT.BEHAVIORAL INSTRUCTOR [address] [place], [place] [address] [facility] 02/03/24 Cloth Roll Winder Relationship Specialty Start Date End Date Shaquille Benjamin MD [address] [place], [place] [address]68[address] PCP - General Family Medicine 02/13/18 Rajwinder Wilson, CAFETERIA ATTENDANT.BEHAVIORAL INSTRUCTOR [address] [place], [place] 824[address] [facility] 02/03/24 Estefani Hector, CAFETERIA ATTENDANT.BEHAVIORAL INSTRUCTOR [address] [place] [address] [facility] 02/03/24 Loraine Patterson, bean snapperManager Of Sustainability 03/16/24 Cloth Roll Winder Relationship Specialty Start Date End Date Shaquille Benjamin MD [address] [place], [place] 4870[address] PCP - General Family Medicine 02/13/18 Rajwinder Wilson, CAFETERIA ATTENDANT.BEHAVIORAL INSTRUCTOR [address] [place], [place] 109657 [phone] Wheel [facility] 02/03/24 Estefani Hector CAFETERIA ATTENDANT.BEHAVIORAL INSTRUCTOR [address] [facility] [place] [address] [facility] 02/03/24 Loraine Patterson RN Manager Of Sustainability 03/16/24 Cloth Roll Winder Relationship Specialty Start Date End Date Shaquille Benjamin MD [address] [facility] [place] [address] PCP - General Family Medicine 02/13/18 Rajwinder Wilson CAFETERIA ATTENDANT.BEHAVIORAL INSTRUCTOR [address] [facility] [place] [address] [facility]24 Estefani Hector CAFETERIA ATTENDANT.BEHAVIORAL INSTRUCTOR [address] [facility] [place] [address] [facility] [place] 02/[facility]/24 Loraine Patterson RN Manager Of Sustainability 03/16/24 Cloth Roll Winder Relationship Specialty Start Date End Date Shaquille Benjamin MD [address] [facility] [place] [address] PCP - General Family Medicine 02/13/18 Rajwinder Wilson CAFETERIA ATTENDANT.BEHAVIORAL INSTRUCTOR [address] [facility] [place] [address] [facility] 02/03/24 Estefani Hector CAFETERIA ATTENDANT.BEHAVIORAL INSTRUCTOR [address] [facility] [place] [address] [facility] 02/03/24 Loraine Patterson RN Manager Of Sustainability 03/16/24 Cloth Roll Winder Relationship Specialty Start Date End Date Shaquille Benjamin MD [address] [facility] [place] [address] PCP - General Family Medicine 02/13/18 Rajwinder Wilson, CAFETERIA ATTENDANT.BEHAVIORAL INSTRUCTOR [address] [place] [address] [facility] [place] 02/03/24 Estefani Hector CAFETERIA ATTENDANT.BEHAVIORAL INSTRUCTOR [address] [facility], [place] [address] [facility] 02/03/24 Loraine Patterson, bean snapperManager Of Sustainability 03/16/24 Cloth Roll Winder Relationship Specialty Start Date End Date Shaquille Benjamin MD [address] [facility] [place] [address] PCP - General Family Medicine 02/13/18 Rajwinder Wilson, CAFETERIA ATTENDANT.BEHAVIORAL INSTRUCTOR [address] [facility] [place] [address] [facility] 02/03/24 Estefani Hector CAFETERIA ATTENDANT.BEHAVIORAL INSTRUCTOR [address] [facility], [place] [address] [facility] 02/03/24 Team Status: Active Member Role/Relationship Status [...] End: June 30, 2024 Oly Jane NP, SEWAGE SCREEN OPERATOR-C Attending Provider Active Start: June 30, 2024 End: June 30, 2024 Team Status: Inactive Member Role/Relationship Status Dates Dr. Shaquille Benjamin MD Primary Care Provider Active Start: July 08, 2024 End: July 08, 2024 Oly Jane SEWAGE SCREEN OPERATOR, SEWAGE SCREEN OPERATOR-C Attending Provider Active Start: July 08, 2024 [...] End: June 30, 2024 Oly Jane NP SEWAGE SCREEN OPERATOR-C Attending Provider Active Start: June 30, 2024 End: June 30, 2024 Team Status: Inactive Member Role/Relationship Status Dates Dr. Shaquille Benjamin MD Primary Care Provider Active Start: July 08, 2024 End: July 08, 2024 Oly Jane NP SEWAGE SCREEN OPERATOR-C Attending Provider Active Start: July 08, 2024 [...] section and content) DATE CREATED AUTHOR 05/06/2024 [facility] DATE CREATED AUTHOR AUTHOR'S ORGANIZ ATION 06/23/2024 [facility] DATE CREATED AUTHOR AUTHOR'S ORGANIZ ATION 10/21/2024 [facility] FOR RECORDS PERTAINING TO PATIENTS WHO ARE [...] BE BASED ON THE PRIMARY CLINICAL RECORDS. [employer] provides no warranty or guarantee of the accuracy or completeness of information in this document.
[2024-11-10 08:19] LABS: Cholesterol 118 mg/dL (<=200); Low Density Lipoprotein Calc. 39 mg/dL; Triglycerides 77 mg/dL; Very Low Density Lipoprotein 15 mg/dL (5-40); cholesterol:hdl ratio screen 1.85
== END ==
LOC: OLS.WHLEAS 05:00
PROVIDERS: PCP Family Medicine; Visit Provider Internal Medicine
DX: E78.5 Hyperlipidemia, unspecified (principal); E11.44 Type 2 diabetes mellitus with diabetic amyotrophy
CPT/HCPCS: 36415; 80061; 83036; 84443

== ENCOUNTER → 2025-01-12 04:00 | Outpatient (REF) | payer MEDICARE, SELFPAY ==
[2025-01-12 07:44] LABS: Hematocrit 33.4 % (37-47); Hemoglobin 10.7 g/dL (12.0-15.0); Immature Granulocytes Count 0.020 X10^3/uL (0.0-0.0); Mean Corp Hgb Conc 32.0 g/dL (32-36); Mean Corpuscular Volume 92.5 fL (81-99); Mean Platelet Vol. 9.4 fl (6.2-12.0); NRBC Flagged by Analyzer 0 % (0-5); Platelet Count 166 K/mm3 (150-450); RBC Distribution Width CV 14.7 % (11.6-14.6); RBC Distribution Width SD 50.3 fl (35.1-43.9); Red Blood Count 3.61 M/mm3 (4.2-5.4); White Blood Count 4.6 K/mm3 (4.4-11.0)
[2025-01-12 07:59] LABS: AST(SGOT) 18 U/L (<=31); Alanine Aminotransfer ALT/SGPT < 5 U/L (<=34); Albumin, Serum 3.6 g/dL (3.4-4.8); Alkaline Phosphatase 49 U/L (35-104); Anion Gap 10 (5-15); BUN 19 mg/dL (4-19); BUN/Creat Ratio 24.7 RATIO (10-20); Calcium,Total 8.7 mg/dL (7.6-11.0); Carbon Dioxide 25.9 mmol/L (21.0-32.0); Chloride 96 mmol/L (98-108); Globulin 2.9 g/dL (2.2-4.2); Glucose 85 mg/dL (70-99); Potassium 4.1 mmol/L (3.3-5.1)
== END ==
LOC: OLS.WHLEAS 04:00
PROVIDERS: PCP Family Medicine; Referring Provider Internal Medicine; Visit Provider Internal Medicine
DX: I10 Essential (primary) hypertension (principal)
CPT/HCPCS: 36415; 80053; 85025